=== PATIENT | female | born 1960 | race Caucasian/White ===

== ENCOUNTER 2016-11-10 11:07 | Day surgery (SDC) | payer MEDICAID ==
[~2016-11-10 11:07] MED LIST: ALBUTEROL2.5 MG/NEB IN; BUPROPION HCL150 M3 PO; CEFDINIR300 M1 PO; CELEBREX 200MG200 MG PO; CHANTIX1 M1; CHLORPROMAZINE25 MG; CIPROFLOXACIN500 MG PO; CLARITIN 10MG T10 MG PO; DIAZEPAM5 MG PO; FAMILY PHARMAC325 MG; FIORICET1 CAP PO; FLONASE 50 MCG16 GM; GABAPENTIN100 M1 PO; INCRUSE EL62.5 MCG/A IH; LORTAB 5/500 501 TAB PO; MILLIPRED5 MG PO; NAPROSYN 500MG500 MG PO; PHENERGAN 25MG.25 M1 PO; POTASS CHL20 MEQ/15 PO; PREDNISONE 10MG10 MG PO; PRENATAL PLUS1 TA1 PO; PYRIDIUM 200MG200 MG PO; RANITIDINE HCL150 MG PO; SAVELLA50 MG PO; SINGULAIR10 MG PO; VALIUM 10MG TAB10 MG PO; VENTOLIN H0.09 MG/Ac IH
--- NOTE | 2016-11-10 14:33 | Operative Note ---
Procedure: Date of procedure: 11/10/16 Time of procedure: 1200 Procedure performed: Implantation of Loop recorder Indication: Sudden drop syncope Technique: Technique: 1 percent lidocaine with epinephrine used to anesthetize the size. The LEFT anterior aspect of the chest along the LEFT sternal border. Using the preformed scalpel, an incision was made in the loop recorder was placed subcutaneously without difficulty. Following the deployment of the loop recorder interrogation of the device was performed to ensure appropriate voltage was being detected (0.6 mv). Once this was verified. Steri-Strips were placed over the incision and the patient was prepped to discharge home. Patient tolerated procedure well with minimal discomfort. Impression: Successful deployment of loop recorder Serial number: [id number] Plan: Routine post op care at 2000
--- NOTE | 2016-11-10 14:33 | Operative Note ---
Procedure: Date of procedure: 11/10/16 Time of procedure: 1200 Procedure performed: Implantation of Loop recorder Indication: Sudden drop syncope Technique: Technique: 1 percent lidocaine with epinephrine used to anesthetize the size. The LEFT anterior aspect of the chest along the LEFT sternal border. Using the preformed scalpel, an incision was made in the loop recorder was placed subcutaneously without difficulty. Following the deployment of the loop recorder interrogation of the device was performed to ensure appropriate voltage was being detected (0.6 mv). Once this was verified. Steri-Strips were placed over the incision and the patient was prepped to discharge home. Patient tolerated procedure well with minimal discomfort. Impression: Successful deployment of loop recorder Serial number: [id number] Plan: Routine post op care at 2000
== END 2016-11-10 13:00 | disposition home or self-care (01) ==
LOC: CATHLAB 11:07
PROVIDERS: Internal Medicine
PROC: 0JH632Z Insertion of Monitoring Device into Chest Subcutaneous Tissue and Fascia, Percutaneous Approach (ICD-10-PCS; principal; 2016-11-10 11:00)
DX: R55 Syncope and collapse (principal); I71.2 Thoracic aortic aneurysm, without rupture
CPT/HCPCS: C1764; G0463

== ENCOUNTER 2016-11-17 12:59 | Emergency (ER) | payer MEDICAID ==
[~2016-11-17] VITALS: Ht 172.7 cm; Wt 48.1 kg
[2016-11-17] MEDS ORDERED: LIPITOR40 MG PO (13:22)
[2016-11-17] MEDS ORDERED: ASPIRIN 81MG TA81 MG PO (13:23)
[2016-11-17] MEDS ORDERED: IMDUR 60MG. TAB60 MG PO (13:23)
[2016-11-17] MEDS ORDERED: TOPIRAMATE 25MG25 MG PO (13:23)
[2016-11-17] MEDS ORDERED: SAVELLA50 MG PO (13:24)
[2016-11-17] MEDS ORDERED: BISOPROLOL 5MG T5 MG PO (13:24)
[2016-11-17] MEDS ORDERED: NITROGLYCERIN0.4 MG SL (13:25)
[2016-11-17] MEDS ORDERED: BUTAL PO (13:26)
[2016-11-17] MEDS ORDERED: ACETAMIN PO (13:26)
--- NOTE | 2016-11-17 13:43 | Urgent Treatment Center Report ---
History of Present Issue Date/Time Seen by Provider 11/17/16 1315 Visit Reason Pt arrived:Walked Presenting Problem:PT STATES RASH TO ARMS ON AND OFF FOR FOUR MONTHS. STATES RASH WILL GO AWAY FOR A COUPLE OF DAYS BUT COMES BACK. STATES USING DIFFERENT CREAMS WITH NO RELIEF. STATES AREAS GET INFECTED AND ITCHES AND WILKINSON. DENIES RECENT CHANGES IN SOAPS, DETERGENTS, ETC. Location if Accident: Onset of symptoms date/time:/ or onset unknown for:MEDICAL HX UNKNOWN Have you (or family members/close friends) recently traveled outside the [place]? N If Yes, where/when: Have you had exposure to infectious disease within the past month? TB? Other? Specify: c/o persistant intermittent rash. Reoccurring for over 5 months now. Initially anterior neck/lower chin, then right elbow/FA and currently left AC. Starts as "red bumps" but then pt starts scratching and develops into scabs that w/ scratching, ooze clear liquid and burn. Denies scaling, flaking, dryness. Has already seen Dr. Correa, Dr. Quintero and Dr. Barksdale for rash. None of whick knew exact cause. Dr. Barksdale had discussed referral to dermatology but pt hasn 't heard anything in regards to an appt. No improvement w/ betamethasone, another prescription steroid cream, cortisone 10, mindy rest, oatmeal baths, calamine, baking soda, antihistamine daily, "and everything else over the counter you can think of". Skin scraping indicated not scabies. Sleeping w/ ice pack on "just to get a hint of relief so that I can sleep". Source patient Exam Limitations no limitations ALLERGIES Coded Allergies: Penicillins (Mild, 08/30/16) diphenhydramine (From BENADRYL) (ORAL BENADRYL ONLY 11/17/16) Home Medications Reported Medications Bupropion HCl (Bupropion HCl Sr) 150 MG PO BID #60 UMECLIDINIUM BROMIDE (Incruse Ellipta) 1 PUFF IH DAILY #30 Fluticasone Propionate (Flonase 50 Mcg Nasal [place]) 1 SPRAY NA BID #16 Loratadine (Claritin 10MG) 10 MG PO DAILY #30 Albuterol Sulfate (Ventolin Hfa) 1 PUFFS IH UD #18 MULTIVIT-MIN W/FE-FA ( Multivitamin Tablet) 1 TAB PO DAILY Diazepam (Valium 10MG) 10 MG PO BID Gabapentin (Gabapentin 100MG) 200 MG PO TID Atorvastatin Calcium (Atorvastatin) 10 MG PO DAILY ISOSORBIDE MONONITRATE (Isosorbide Mononitrate ER) 30 MG PO DAILY Topiramate (Topiramate 25MG Tablet) 25 MG PO DAILY ASPIRIN (Aspirin) 81 MG PO DAILY MILNACIPRAN HCL (Savella) 50 MG PO BID BISOPROLOL FUMARATE (Bisoprolol 5MG) 10 MG PO DAILY NITROGLYCERIN (Nitrostat) 0.4 MG SL [id number] PRN ANGINA BUTALBIT/ACETAMIN/CAFF/CODEINE (Fbaqpt-Mzco-Vohxwweyfcf-Codein) 1 EACH PO BID History Medical History General CAD? No Angina: Yes [place]: Yes Hypertension? No Hyperlipidemia? Yes CHF? No DVT? No PE? No COPD? Yes Asthma? No Anemia? Yes GERD? No Gastric ulcers? No GI Bleed? No Hernia? Yes Thyroid Problems? No Hypothyroidism? No CVA? Yes Seizures? No Diabetes? No Renal Insuffiency? No UTI? No Stones? No BPH? No GB Disease: No Nephritic Syndrome? No Asplenia? No Hepatitis? No Sickle Cell Disease? No Arthritis? No Migraines? No Cataracts? No Glaucoma? No MRSA? No HIV? No TB? No Anxiety? No Depression? No Cancer? 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 Respiratory denies shortness of breath Musculoskeletal denies joint pain Skin see HPI Psychiatric/Neurological denies numbness, denies tingling Physical Exam Vital Signs Vital Signs Date Time Temp Pulse Resp B/P Pulse O2 O2 Flow FiO2 Ox Delivery Rate 11/17 1345 98.2 71 18 111/72 95 11/17 1308 98.2 71 18 111/72 95 General Appearance no apparent distress, thin, dishelveld appearance Neck non-tender, supple Respiratory Status No: respiratory distress. Cardiovascular no peripheral edema Neurologic alert Mental status normal mood/affect Skin light red maculopapular rash left AC w/ obvious scratching. Scabbed linear lesions. All without any sign of secondary infection. No warmth, inflammation, drainage or pain at site. Medical Decision Making LABS/Meds/Orders Pt receiving controlled substance in ED? No Progress [facility] Progress Notes Date 11/17/16 Time 1330 Comment Spoke w/ Dr. Barksdale's office. No mention of dermatology in most recent visit's note. Nothing indicates a referral was made. Pt aware and upset about this. Discussed possible differentials, all of which pt is adament it is not. Discussed various treatment options to try, all of which pt reports she has already tried and has gotten no relief with. Departure Departure Time of Disposition 1339 Disposition DC Home or Self Care(routine) Clinical Impression Primary Impression: Rash and nonspecific skin eruption Condition STABLE Referrals RUT HURTADO I understand your schedule is complicated and you rather make an appointment around your schedule. I called their office. You can bee seen in [facility] in december but in [place] office possible next week w/ The physician's assistance. Call [phone] (Office of Dr. Rut Hurtado) today and schedule you a follow up appointment. Patient Instructions DI for Rash Additional Instructions Your rash is complicated. It hasn't responded to any previous treatment. You need to see a engineering geologist for further evaluation and management. Discharge Counseling Counseled pt/family regarding diagnosis, home care, follow up needs at 1412
--- NOTE | 2016-11-17 13:43 | Urgent Treatment Center Report ---
History of Present Issue Date/Time Seen by Provider 11/17/16 1315 Visit Reason Pt arrived:Walked Presenting Problem:PT STATES RASH TO ARMS ON AND OFF FOR FOUR MONTHS. STATES RASH WILL GO AWAY FOR A COUPLE OF DAYS BUT COMES BACK. STATES USING DIFFERENT CREAMS WITH NO RELIEF. STATES AREAS GET INFECTED AND ITCHES AND WILKINSON. DENIES RECENT CHANGES IN SOAPS, DETERGENTS, ETC. Location if Accident: Onset of symptoms date/time:/ or onset unknown for:MEDICAL HX UNKNOWN Have you (or family members/close friends) recently traveled outside the [place]? N If Yes, where/when: Have you had exposure to infectious disease within the past month? TB? Other? Specify: c/o persistant intermittent rash. Reoccurring for over 5 months now. Initially anterior neck/lower chin, then right elbow/FA and currently left AC. Starts as "red bumps" but then pt starts scratching and develops into scabs that w/ scratching, ooze clear liquid and burn. Denies scaling, flaking, dryness. Has already seen Dr. Correa, Dr. Quintero and Dr. Barksdale for rash. None of whick knew exact cause. Dr. Barksdale had discussed referral to dermatology but pt hasn 't heard anything in regards to an appt. No improvement w/ betamethasone, another prescription steroid cream, cortisone 10, mindy rest, oatmeal baths, calamine, baking soda, antihistamine daily, "and everything else over the counter you can think of". Skin scraping indicated not scabies. Sleeping w/ ice pack on "just to get a hint of relief so that I can sleep". Source patient Exam Limitations no limitations ALLERGIES Coded Allergies: Penicillins (Mild, 08/30/16) diphenhydramine (From BENADRYL) (ORAL BENADRYL ONLY 11/17/16) Home Medications Reported Medications Bupropion HCl (Bupropion HCl Sr) 150 MG PO BID #60 UMECLIDINIUM BROMIDE (Incruse Ellipta) 1 PUFF IH DAILY #30 Fluticasone Propionate (Flonase 50 Mcg Nasal [place]) 1 SPRAY NA BID #16 Loratadine (Claritin 10MG) 10 MG PO DAILY #30 Albuterol Sulfate (Ventolin Hfa) 1 PUFFS IH UD #18 MULTIVIT-MIN W/FE-FA ( Multivitamin Tablet) 1 TAB PO DAILY Diazepam (Valium 10MG) 10 MG PO BID Gabapentin (Gabapentin 100MG) 200 MG PO TID Atorvastatin Calcium (Atorvastatin) 10 MG PO DAILY ISOSORBIDE MONONITRATE (Isosorbide Mononitrate ER) 30 MG PO DAILY Topiramate (Topiramate 25MG Tablet) 25 MG PO DAILY ASPIRIN (Aspirin) 81 MG PO DAILY MILNACIPRAN HCL (Savella) 50 MG PO BID BISOPROLOL FUMARATE (Bisoprolol 5MG) 10 MG PO DAILY NITROGLYCERIN (Nitrostat) 0.4 MG SL [id number] PRN ANGINA BUTALBIT/ACETAMIN/CAFF/CODEINE (Gztnnb-Labb-Cuzjlcemlmo-Codein) 1 EACH PO BID History Medical History General CAD? No Angina: Yes [place]: Yes Hypertension? No Hyperlipidemia? Yes CHF? No DVT? No PE? No COPD? Yes Asthma? No Anemia? Yes GERD? No Gastric ulcers? No GI Bleed? No Hernia? Yes Thyroid Problems? No Hypothyroidism? No CVA? Yes Seizures? No Diabetes? No Renal Insuffiency? No UTI? No Stones? No BPH? No GB Disease: No Nephritic Syndrome? No Asplenia? No Hepatitis? No Sickle Cell Disease? No Arthritis? No Migraines? No Cataracts? No Glaucoma? No MRSA? No HIV? No TB? No Anxiety? No Depression? No Cancer? 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 Respiratory denies shortness of breath Musculoskeletal denies joint pain Skin see HPI Psychiatric/Neurological denies numbness, denies tingling Physical Exam Vital Signs Vital Signs Date Time Temp Pulse Resp B/P Pulse O2 O2 Flow FiO2 Ox Delivery Rate 11/17 1345 98.2 71 18 111/72 95 11/17 1308 98.2 71 18 111/72 95 General Appearance no apparent distress, thin, dishelveld appearance Neck non-tender, supple Respiratory Status No: respiratory distress. Cardiovascular no peripheral edema Neurologic alert Mental status normal mood/affect Skin light red maculopapular rash left AC w/ obvious scratching. Scabbed linear lesions. All without any sign of secondary infection. No warmth, inflammation, drainage or pain at site. Medical Decision Making LABS/Meds/Orders Pt receiving controlled substance in ED? No Progress [facility] Progress Notes Date 11/17/16 Time 1330 Comment Spoke w/ Dr. Barksdale's office. No mention of dermatology in most recent visit's note. Nothing indicates a referral was made. Pt aware and upset about this. Discussed possible differentials, all of which pt is adament it is not. Discussed various treatment options to try, all of which pt reports she has already tried and has gotten no relief with. Departure Departure Time of Disposition 1339 Disposition DC Home or Self Care(routine) Clinical Impression Primary Impression: Rash and nonspecific skin eruption Condition STABLE Referrals RUT HURTADO I understand your schedule is complicated and you rather make an appointment around your schedule. I called their office. You can bee seen in [facility] in december but in [place] office possible next week w/ The physician's assistance. Call [phone] (Office of Dr. Rut Hurtado) today and schedule you a follow up appointment. Patient Instructions DI for Rash Additional Instructions Your rash is complicated. It hasn't responded to any previous treatment. You need to see a annealing torch operator for further evaluation and management. Discharge Counseling Counseled pt/family regarding diagnosis, home care, follow up needs at 1412
[2016-11-17 13:45] VITALS: BP 111/72
== END 2016-11-17 13:46 | disposition home or self-care (01) ==
LOC: UTC 12:59
DX: R21 Rash and other nonspecific skin eruption (principal); Z79.899 Other long term (current) drug therapy; J44.9 Chronic obstructive pulmonary disease, unspecified; Z72.0 Tobacco use

== ENCOUNTER → 2016-11-24 | Outpatient (CLI) | payer MEDICAID ==
[~2016-11-24] MED LIST changes: +ACETAMIN PO; +ASPIRIN 81MG TA81 MG PO; +BISOPROLOL 5MG T5 MG PO; +BUTAL PO; +IMDUR 60MG. TAB60 MG PO; +LIPITOR40 MG PO; +NITROGLYCERIN0.4 MG SL; +TOPIRAMATE 25MG25 MG PO
--- NOTE | 2016-11-29 09:36 | RADIOLOGY REPORT PS360 ---
DIG MAMM- JERRY ADD VIEWS W/CAD, US BREAST-RT COMPLETE W/AXILLA, US BREAST-LT COMPLETE W/AXILLA COMPARISON: 1117, 02/12/2010 INDICATION: Follow-up abnormal mammogram ORDERING PHYSICIAN: Abdirashid Hunter MD PATIENT AGE: 56 years TECHNIQUE: Spot compression views performed along with bilateral breast ultrasound FINDINGS: Dense fibroglandular tissue decreasing the sensitivity of mammography. Right mammogram: Asymmetric density in the deep central aspect of the right breast and medial subareolar region of the right breast both appear to compress out.. A cluster of calcifications noted in the upper aspect of the right breast probably benign. An additional cluster calcifications in the retroareolar region superiorly. These are probably benign. 6 month follow-up recommended. Right breast ultrasound: 3 mm cyst at 1:00. 4 mm cyst at 3:00. No suspicious nodules evident. Left mammogram: Scattered retroareolar clusters of calcification are noted none of which are more suspicious than any other probably related to adenosis. 3 month follow-up recommended Left breast ultrasound: At the 12:00 region there is a cluster small cyst imbedded in fibroglandular tissue. IMPRESSION: No convincing evidence of malignancy. Probably benign findings. BI-RADS CATEGORY: 3_Probably Benign-Short Term F/U regarding calcifications RECOMMENDED FOLLOWUP: 6 month mammographic follow-up with magnification views of both breasts and left breast ultrasound. (A letter has been sent to the patient regarding results of the study.)
== END ==
LOC: RAD 12:41
DX: R92.8 Other abnormal and inconclusive findings on diagnostic imaging of breast (principal)
CPT/HCPCS: G0204

== ENCOUNTER 2016-11-30 07:50 | Day surgery (SDC) | payer MEDICAID ==
[2016-11-30 09:17] LABS: HEMOGLOBIN 16.1 g/dL (12.2-16.2); LYMPH # 1.3 K/mm3 (0.7-4.5); LYMPH % 29.5 % (10-50.0)
[2016-11-30 09:25] LABS: BUN 18 mg/dL (7-18)
[2016-11-30 09:34] LABS: GFR (ESTIMATED) 74 ML/MIN (59-)
--- NOTE | 2016-11-30 12:42 | RADIOLOGY REPORT PS360 ---
CARDIAC CATHETERIZATION DATE OF CATHETERIZATION:11/30/2016 10:59 AM PROCEDURES: 1. Left heart catheterization 2. Left ventriculogram 3. Selective coronary angiogram INDICATION FOR TEST: 1. Known coronary artery disease 2. Preoperative evaluation 3. Angina pectoris class IV Informed consent was obtained prior to the procedure. COMPLICATIONS: None ESTIMATED BLOOD LOSS: Less than 10 ml. TECHNIQUE: One percent lidocaine was used to anesthetize the right groin. The right femoral artery was accessed via the Seldinger technique. A 4-Jordanian sheath was placed in the right femoral artery. The JL-4 and JR-4 catheter was also used to perform left heart catheterization and left ventriculography. At the end of the procedure the patient was transferred to the post-op holding area in stable condition for arterial sheath removal. ANGIOGRAPHIC RESULTS: 1. The left main artery normal 2. The left anterior descending artery is proximally normal with mild mid vessel 30% nonflow limiting stenoses. Slow flow is present down the LAD consistent with endothelial dysfunction 3. The circumflex artery is nondominant and has mild vascular ectasia in the mid segment with no stenosis greater than 20% 4. The right coronary artery is dominant and has a stent in the proximal segment which is widely patent free of in-stent restenosis. The remaining vessel has mild 10% nonflow limiting stenoses 5. The GANDHI ventriculogram reveals normal 65% 6. The left ventricular end-diastolic pressure less than 10 mmHg IMPRESSION: 1. Non flow limiting coronary artery disease with a widely patent stent in the proximal dominant right coronary artery 2. Slow flow down all vessels consistent with endothelial dysfunction likely related to tobacco usage 3. Normal ejection fraction 4. Normal left ventricular and less so pressure PLAN: 1. Risk factor modification 2. LDL less than 55 3. Tobacco cessation and avoidance of tobacco products 4. Patient is a low and acceptable risk to proceed with elective herniorrhaphy
[2016-11-30 14:22] VITALS: BP 128/78
== END 2016-11-30 14:25 | disposition home or self-care (01) ==
LOC: CATHLAB 07:50
PROVIDERS: Internal Medicine
PROC: B2111ZZ Fluoroscopy of Multiple Coronary Arteries using Low Osmolar Contrast (ICD-10-PCS; 2016-11-30)
PROC: B2151ZZ Fluoroscopy of Left Heart using Low Osmolar Contrast (ICD-10-PCS; 2016-11-30)
PROC: 4A023N7 Measurement of Cardiac Sampling and Pressure, Left Heart, Percutaneous Approach (ICD-10-PCS; principal; 2016-11-30 09:45)
DX: I25.119 Atherosclerotic heart disease of native coronary artery with unspecified angina pectoris (principal); Z95.5 Presence of coronary angioplasty implant and graft; J44.9 Chronic obstructive pulmonary disease, unspecified; Z72.0 Tobacco use
CPT/HCPCS: C1725; C1769; J1644; Q9967

== ENCOUNTER 2016-12-30 09:44 | Emergency (ER) | payer MEDICAID ==
[~2016-12-30] VITALS: Ht 172.7 cm; Wt 46.7 kg
--- NOTE | 2016-12-30 09:54 | Emergency Room Report ---
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 EMS GAVE TWO SPRAYS OF NITRO WITH GOOD RESULTS INCLUDING DECREASE IN BP AND DECREASE PAIN Onset of symptoms date/time:/ or onset unknown for:MEDICAL HX UNKNOWN Treatment Prior to Arrival: WASH DRILLER HELPER Provided by: Sepsis Risk Assessment: Temp: 98.0 B/P: 148/95 MAP: 112 Pulse: 82 Resp: 18 Recent fever? Y Clinical Suspician of Infection? N Mental Status: 1 - Regular (Normal Baseline) Sepsis Risk:Low Sepsis Risk Have you (or family members/close friends) recently traveled outside the [place]? N If Yes, where/when: Have you had exposure to infectious disease within the past month? TB? Other? Specify: Comment The patient complains of chest pain, brought in by ambulance. She says the pain started an hour prior to arrival when walking back from the bathroom. Initially she had pain in tingling in her LEFT arm and her jaw and also developed a LEFT anterior chest pain. Slight shortness of breath. Slight nausea. No diaphoresis. She says she has had this in the past, usually relieved with nitroglycerin and Tylenol, but it did not go away with nitroglycerin at home today. She called 911 and was administered nitroglycerin in route. She says her chest pain is gone, but she still has some pain in her arm and jaw. She says the last time she had this was in August and at that time she had a cath and she thinks she had a stent replaced. She has had open heart surgery, valve repair, loop recorder, and stents. [employer] Justice is Dr. Barksdale. ALLERGIES Coded Allergies: Penicillins (Mild, 12/30/16) diphenhydramine (From BENADRYL) (ORAL BENADRYL ONLY 12/30/16) Home Medications Reported Medications Bupropion HCl (Bupropion HCl Sr) 150 MG PO BID #60 UMECLIDINIUM BROMIDE (Incruse Ellipta) 1 PUFF IH DAILY #30 Fluticasone Propionate (Flonase 50 Mcg Nasal [place]) 1 SPRAY NA BID #16 Loratadine (Claritin 10MG) 10 MG PO DAILY #30 Albuterol Sulfate (Ventolin Hfa) 1 PUFFS IH UD #18 MULTIVIT-MIN W/FE-FA ( Multivitamin Tablet) 1 TAB PO DAILY Diazepam (Valium 10MG) 10 MG PO BID Gabapentin (Gabapentin 100MG) 200 MG PO TID Atorvastatin Calcium (Atorvastatin) 10 MG PO DAILY ISOSORBIDE MONONITRATE (Isosorbide Mononitrate ER) 30 MG PO DAILY Topiramate (Topiramate 25MG Tablet) 25 MG PO DAILY ASPIRIN (Aspirin) 81 MG PO DAILY MILNACIPRAN HCL (Savella) 50 MG PO BID BISOPROLOL FUMARATE (Bisoprolol 5MG) 10 MG PO DAILY NITROGLYCERIN (Nitrostat) 0.4 MG SL [id number] PRN ANGINA BUTALBIT/ACETAMIN/CAFF/CODEINE (Zejzdb-Tuag-Xpjkabfhove-Codein) 1 EACH PO BID History Medical History General CAD? No Angina: Yes [place]: Yes Hypertension? Yes Hyperlipidemia? Yes CHF? No DVT? No PE? No COPD? Yes Asthma? No Anemia? Yes GERD? No Gastric ulcers? No GI Bleed? No Hernia? Yes Thyroid Problems? No Hypothyroidism? No CVA? Yes Seizures? No Diabetes? No Renal Insuffiency? No End Stage Renal Disease? No UTI? No Stones? No BPH? No GB Disease: No Nephritic Syndrome? No Asplenia? No Hepatitis? No Sickle Cell Disease? No Arthritis? No Migraines? No Cataracts? No Glaucoma? No MRSA? No HIV? No TB? No Anxiety? No Depression? No Cancer? 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 Patent stent. Review of Systems All Other Systems Reviewed and Negative Respiratory shortness of breath Cardiovascular chest pain Gastrointestinal denies abdominal pain, nausea, denies vomiting Musculoskeletal see HPI Psychiatric/Neurological tingling Physical Exam Vital Signs Vital Signs Date Time Temp Pulse Resp B/P Pulse O2 O2 Flow FiO2 Ox Delivery Rate 12/30 1413 98.0 69 20 105/64 98 2 12/30 1349 69 20 105/64 98 2 12/30 1151 75 16 91/61 97 2 12/30 1025 20 12/30 0947 98.0 82 18 148/95 98 General Appearance no apparent distress Eye Exam - bilateral eye normal exam, bilateral eye PERRL, bilateral eye EOMI Ear, Nose, Throat hearing grossly normal, normal ENT inspection Neck normal inspection, non-tender, supple, full range of motion Respiratory Status Yes: trachea midline, chest symmetrical, non tender chest. No: respiratory distress. Lung Sounds bilateral: normal breath sounds, lungs clear. Cardiovascular normal exam, regular rate/rhythm, no peripheral edema, no gallop, no JVD, no murmur, no rub, normal peripheral pulses Peripheral Pulses Pulses normal Yes Gastrointestinal normal bowel sounds, normal exam, non tender, soft, no organomegaly Extremities non-tender, normal range of motion, normal inspection Neurologic alert, normal exam, oriented x 3 Mental status normal mood/affect Skin intact, normal color, warm/dry Medical Decision Making LABS/Meds/Orders Pt receiving controlled substance in ED? Yes Chris was queried for this patient? No Reason not queried - emergent pt cond=no time Results/Orders Laboratory Tests 12/30/16 1325: Troponin I 0.02 12/30/16 0945: Sodium 144, Potassium 3.7, Chloride 105, Carbon Dioxide 29, BUN 19 H, Creatinine 0.8, Estimated Creat Clear 57, Estimated GFR (MDRD) 74, Glucose 107 H, Calcium 9.4, Total Bilirubin 0.2, AST 16, ALT 31, Alkaline Phosphatase 100, Creatine Kinase 36, CK-MB (CK-2) Rel Index 1.4, CK and CKMB Interp < 0.5, Troponin I < 0.02, Total Protein 8.0, Albumin 4.0, Globulin 4.0 H, Albumin/ Globulin Ratio 1.0 L, WBC 4.7 L, RBC 5.39, Hgb 17.8 H, Hct 56.5 H, MCV 104.9 H, RDW 13.1, Plt Count 135 L, MPV 8.7, Gran % 53.2, Gran # 2.5, Lymphocytes % 33.5, Monocytes % 7.4, Eosinophils % 5.2, Basophils % 0.7, Lymphocytes # 1.6, Monocytes # 0.4, Eosinophils # 0.2, Basophils # 0.0, PUBS MCHC 31.5 L, MCH 33.0 H Current Medication Orders Sig/Yelena Start time Last Medication Dose Route Stop Time Status Admin Ondansetron HCl 0 .STK-MED ONE 12/30 1023 DC .ROUTE Morphine Sulfate 0 .STK-MED ONE 12/30 1022 DC .ROUTE Morphine Sulfate 2 MG ONCE ONE 12/30 1015 DC 12/30 IV 12/30 1016 1025 Ondansetron HCl 4 MG ONCE ONE 12/30 1015 DC 12/30 IV 12/30 1016 1024 Sodium Chloride 10 ML PRN PRN 12/30 1000 DCD IV 12/31 0946 Orders Procedure Date/time Status TROPONIN I 12/30 1234 Complete ELECTROCARDIOGRAM REQUEST 12/30 945 Active IV SALINE LOCK 12/30 945 Active CBC WITH AUTO DIFF 12/30 945 Complete CARDIAC ENZYMES 12/30 945 Complete CHEM 12 PROFILE 12/30 945 Complete 12 LEAD EKG-LESTER (INITIAL) 12/30 UNK Active CM/EKG CM/EKG Comments EKG interpreted by aDvid Yao MD: Rhythm: sinus Rate: 77 [place]: normal Ectopy: none Conduction: normal ST Segment Changes: none T Wave Changes: none Q Waves: none No evidence of acute ischemia or injury Baseline artifact present, but I consider the EKG adequate for accurate interpretation. XRAY/CT/US XRAY/CT/US XRAY chest Comment X-ray interpreted by David Yao M.D.: Chronic obstructive pulmonary disease, surgical changes Progress - 12:58 PM: Patient refused second troponin. Discussed with William for Dr. Barksdale, who will see the patient in the emergency department. 1:23 PM: Patient seen by Luis. He says he has talked the patient into having a second troponin, which will now be drawn. If negative, discharge and he will will follow her up in the office on and schedule an outpatient echo. 2:00 PM: Second troponin normal. Discussed plan with patient. She says she feels good and is ready to go. Luis has informed her of follow-up plans. Departure Departure Disposition DC Home or Self Care(routine) Clinical Impression Primary Impression: Chest pain Qualifiers: Chest pain type: precordial pain Qualified Code: R07.2 - Precordial pain Condition STABLE Referrals Leon AGEE,Dejuan Galan (PCP/Family) Patient Instructions DI for Chest Pain Additional Instructions Additional instructions for CHEST PAIN: Follow-up in Dr. Barksdale's office on as scheduled. Return immediately if worsening chest pain, vomiting, shortness of breath, fever, coughing of blood. ED Critical Care Critical Care No at 1917
--- NOTE | 2016-12-30 09:54 | Emergency Room Report ---
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 PT ALSO TOOK ASPIRIN [employer]. EMS GAVE TWO SPRAYS OF NITRO WITH GOOD RESULTS INCLUDING DECREASE IN BP AND DECREASE PAIN Onset of symptoms date/time:/ or onset unknown for:MEDICAL HX UNKNOWN Treatment Prior to Arrival: [employer] Provided by: Sepsis Risk Assessment: Temp: 98.0 B/P: 148/95 MAP: 112 Pulse: 82 Resp: 18 Recent fever? Y Clinical Suspician of Infection? N Mental Status: 1 - Regular (Normal Baseline) Sepsis Risk:Low Sepsis Risk Have you (or family members/close friends) recently traveled outside the [place]? N If Yes, where/when: Have you had exposure to infectious disease within the past month? TB? Other? Specify: Comment The patient complains of chest pain, brought in by ambulance. She says the pain started an hour prior to arrival when walking back from the bathroom. Initially she had pain in tingling in her LEFT arm and her jaw and also developed a LEFT anterior chest pain. Slight shortness of breath. Slight nausea. No diaphoresis. She says she has had this in the past, usually relieved with nitroglycerin and Tylenol, but it did not go away with nitroglycerin at home today. She called 911 and was administered nitroglycerin in route. She says her chest pain is gone, but she still has some pain in her arm and jaw. She says the last time she had this was in August and at that time she had a cath and she thinks she had a stent replaced. She has had open heart surgery, valve repair, loop recorder, and stents. 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 ALLERGIES Coded Allergies: Penicillins (Mild, 12/30/16) diphenhydramine (From BENADRYL) (ORAL BENADRYL ONLY 12/30/16) Home Medications Reported Medications Bupropion HCl (Bupropion HCl Sr) 150 MG PO BID #60 UMECLIDINIUM BROMIDE (Incruse Ellipta) 1 PUFF IH DAILY #30 Fluticasone Propionate (Flonase 50 Mcg Nasal [place]) 1 SPRAY NA BID #16 Loratadine (Claritin 10MG) 10 MG PO DAILY #30 Albuterol Sulfate (Ventolin Hfa) 1 PUFFS IH UD #18 MULTIVIT-MIN W/FE-FA ( Multivitamin Tablet) 1 TAB PO DAILY Diazepam (Valium 10MG) 10 MG PO BID Gabapentin (Gabapentin 100MG) 200 MG PO TID Atorvastatin Calcium (Atorvastatin) 10 MG PO DAILY ISOSORBIDE MONONITRATE (Isosorbide Mononitrate ER) 30 MG PO DAILY Topiramate (Topiramate 25MG Tablet) 25 MG PO DAILY ASPIRIN (Aspirin) 81 MG PO DAILY MILNACIPRAN HCL (Savella) 50 MG PO BID BISOPROLOL FUMARATE (Bisoprolol 5MG) 10 MG PO DAILY NITROGLYCERIN (Nitrostat) 0.4 MG SL [id number] PRN ANGINA BUTALBIT/ACETAMIN/CAFF/CODEINE (Naqcqe-Orou-Vqvasjlasdz-Codein) 1 EACH PO BID History Medical History General CAD? No Angina: Yes [place]: Yes Hypertension? Yes Hyperlipidemia? Yes CHF? No DVT? No PE? No COPD? Yes Asthma? No Anemia? Yes GERD? No Gastric ulcers? No GI Bleed? No Hernia? Yes Thyroid Problems? No Hypothyroidism? No CVA? Yes Seizures? No Diabetes? No Renal Insuffiency? No End Stage Renal Disease? No UTI? No Stones? No BPH? No GB Disease: No Nephritic Syndrome? No Asplenia? No Hepatitis? No Sickle Cell Disease? No Arthritis? No Migraines? No Cataracts? No Glaucoma? No MRSA? No HIV? No TB? No Anxiety? No Depression? No Cancer? 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 Patent stent. Review of Systems All Other Systems Reviewed and Negative Respiratory shortness of breath Cardiovascular chest pain Gastrointestinal denies abdominal pain, nausea, denies vomiting Musculoskeletal see HPI Psychiatric/Neurological tingling Physical Exam Vital Signs Vital Signs Date Time Temp Pulse Resp B/P Pulse O2 O2 Flow FiO2 Ox Delivery Rate 12/30 1413 98.0 69 20 105/64 98 2 12/30 1349 69 20 105/64 98 2 12/30 1151 75 16 91/61 97 2 12/30 1025 20 12/30 0947 98.0 82 18 148/95 98 General Appearance no apparent distress Eye Exam - bilateral eye normal exam, bilateral eye PERRL, bilateral eye EOMI Ear, Nose, Throat hearing grossly normal, normal ENT inspection Neck normal inspection, non-tender, supple, full range of motion Respiratory Status Yes: trachea midline, chest symmetrical, non tender chest. No: respiratory distress. Lung Sounds bilateral: normal breath sounds, lungs clear. Cardiovascular normal exam, regular rate/rhythm, no peripheral edema, no gallop, no JVD, no murmur, no rub, normal peripheral pulses Peripheral Pulses Pulses normal Yes Gastrointestinal normal bowel sounds, normal exam, non tender, soft, no organomegaly Extremities non-tender, normal range of motion, normal inspection Neurologic alert, normal exam, oriented x 3 Mental status normal mood/affect Skin intact, normal color, warm/dry Medical Decision Making LABS/Meds/Orders Pt receiving controlled substance in ED? Yes Chris was queried for this patient? No Reason not queried - emergent pt cond=no time Results/Orders Laboratory Tests 12/30/16 1325: Troponin I 0.02 12/30/16 0945: Sodium 144, Potassium 3.7, Chloride 105, Carbon Dioxide 29, BUN 19 H, Creatinine 0.8, Estimated Creat Clear 57, Estimated GFR (MDRD) 74, Glucose 107 H, Calcium 9.4, Total Bilirubin 0.2, AST 16, ALT 31, Alkaline Phosphatase 100, Creatine Kinase 36, CK-MB (CK-2) Rel Index 1.4, CK and CKMB Interp < 0.5, Troponin I < 0.02, Total Protein 8.0, Albumin 4.0, Globulin 4.0 H, Albumin/ Globulin Ratio 1.0 L, WBC 4.7 L, RBC 5.39, Hgb 17.8 H, Hct 56.5 H, MCV 104.9 H, RDW 13.1, Plt Count 135 L, MPV 8.7, Gran % 53.2, Gran # 2.5, Lymphocytes % 33.5, Monocytes % 7.4, Eosinophils % 5.2, Basophils % 0.7, Lymphocytes # 1.6, Monocytes # 0.4, Eosinophils # 0.2, Basophils # 0.0, PUBS MCHC 31.5 L, MCH 33.0 H Current Medication Orders Sig/Yelena Start time Last Medication Dose Route Stop Time Status Admin Ondansetron HCl 0 .STK-MED ONE 12/30 1023 DC .ROUTE Morphine Sulfate 0 .STK-MED ONE 12/30 1022 DC .ROUTE Morphine Sulfate 2 MG ONCE ONE 12/30 1015 DC 12/30 IV 12/30 1016 1025 Ondansetron HCl 4 MG ONCE ONE 12/30 1015 DC 12/30 IV 12/30 1016 1024 Sodium Chloride 10 ML PRN PRN 12/30 1000 DCD IV 12/31 0946 Orders Procedure Date/time Status TROPONIN I 12/30 1234 Complete ELECTROCARDIOGRAM REQUEST 12/30 945 Active IV SALINE LOCK 12/30 945 Active CBC WITH AUTO DIFF 12/30 945 Complete CARDIAC ENZYMES 12/30 945 Complete CHEM 12 PROFILE 12/30 945 Complete 12 LEAD EKG-LESTER (INITIAL) 12/30 UNK Active CM/EKG CM/EKG Comments EKG interpreted by David Yao MD: Rhythm: sinus Rate: 77 [place]: normal Ectopy: none Conduction: normal ST Segment Changes: none T Wave Changes: none Q Waves: none No evidence of acute ischemia or injury Baseline artifact present, but I consider the EKG adequate for accurate interpretation. XRAY/CT/US XRAY/CT/US XRAY chest Comment X-ray interpreted by David Yao M.D.: Chronic obstructive pulmonary disease, surgical changes Progress - 12:58 PM: Patient refused second troponin. Discussed with William for Dr. Barksdale, who will see the patient in the emergency department. 1:23 PM: Patient seen by Luis. He says he has talked the patient into having a second troponin, which will now be drawn. If negative, discharge and he will will follow her up in the office on and schedule an outpatient echo. 2:00 PM: Second troponin normal. Discussed plan with patient. She says she feels good and is ready to go. Luis has informed her of follow-up plans. Departure Departure Disposition DC Home or Self Care(routine) Clinical Impression Primary Impression: Chest pain Qualifiers: Chest pain type: precordial pain Qualified Code: R07.2 - Precordial pain Condition STABLE Referrals Leon AGEE,Dejuan Galan (PCP/Family) Patient Instructions DI for Chest Pain Additional Instructions Additional instructions for CHEST PAIN: Follow-up in Dr. Barksdale's office on as scheduled. Return immediately if worsening chest pain, vomiting, shortness of breath, fever, coughing of blood. ED Critical Care Critical Care No at 1917
[2016-12-30 10:05] LABS: LYMPH # 1.6 K/mm3 (0.7-4.5); LYMPH % 33.5 % (10-50.0)
[2016-12-30 10:07] LABS: HEMOGLOBIN 17.8 g/dL (12.2-16.2)
[2016-12-30 10:26] LABS: BUN 19 mg/dL (7-18); GFR (ESTIMATED) 74 ML/MIN (59-)
--- NOTE | 2016-12-30 12:04 | RADIOLOGY REPORT PS360 ---
CHEST-PORTABLE COMPARISON: Portable upright chest 08/30/2016 HISTORY: Chest pain TECHNIQUE: Portable upright chest FINDINGS: Mild emphysematous changes seen with hyperexpansion lung mccoy. I see no infiltrate. Cardiac size is normal, again noted are sternal wire sutures. There is a moderate-sized hiatal hernia seen to the cardiac shadow. IMPRESSION: Mild COPD, no acute chest pathology noted
--- NOTE | 2016-12-30 13:46 | CONSULT NOTE ---
Standard Demographics Patient Demo Date of Consultation: 12/30/16 Referring Provider: David Yao MD Reason for Consultation: CHest pain PRIMARY DIAGNOSIS: chest pain Problem list Problem list: 1. CAD A. RCA BALDEMAR B. Cardiac cath, 11/2016, Widely patent RCA stent with evidence of endothelial dysfunction. Tobacco cessation and use of nitrates or ranexa recommended. 2. Tobacco use with chronic obstructive pulmonary disease and home oxygen use. 3. Hypertension 4. Hyperlipidemia 5. Chronic pain syndrome 6. Abdominal aortic aneurysm, 4.6 x 4.2 cm, 2017 7. History of iliac artery aneurysm, stable History of present illness: History of present illness: 56-year-old white female presented to emergency department with current chest pain with discomfort radiating to the jaw on the LEFT shoulder. Initial workup in the emergency room veal normal troponin. Electrocardiogram without acute change. Upon review of the patient's medication she has not been taking her isosorbide as previously directed. She does continue to smoke. Patient has known coronary disease and previous RIGHT coronary artery stent with recent cardiac catheterization last month showing widely patent stent and evidence of endothelial dysfunction exacerbated by continued tobacco use. Cardiology consulted for evaluation and recommendations. Past Medical History: General: Hypertension Yes CVA Yes Seizures No TB No COPD Yes Asthma No Diabetes No Angina Yes HI Yes Hyperlipidemia Yes Urinary Yes Cancer Yes Rheumatic H.D. No Ulcers Yes MRSA No GB Disease No Other NONMALIGNANT BREAST MASS Past Surgical HX: Previous Surgery?Y C SECTION X3 LEFT BREAST MASS UPPER GI LOWER GI CHEMO X 3 Hernia Repair POLYPS X 17 KIDNEY STONES PELVIC MESH OPEN HEART Allergies Coded Allergies: Penicillins (Mild, 12/30/16) diphenhydramine (From BENADRYL) (ORAL BENADRYL ONLY 12/30/16) Home medications: Reported Medications Bupropion HCl (Bupropion HCl Sr) 150 MG PO BID #60 UMECLIDINIUM BROMIDE (Incruse Ellipta) 1 PUFF IH DAILY #30 Fluticasone Propionate (Flonase 50 Mcg Nasal [place]) 1 SPRAY NA BID #16 Loratadine (Claritin 10MG) 10 MG PO DAILY #30 Albuterol Sulfate (Ventolin Hfa) 1 PUFFS IH UD #18 MULTIVIT-MIN W/FE-FA ( Multivitamin Tablet) 1 TAB PO DAILY Diazepam (Valium 10MG) 10 MG PO BID Gabapentin (Gabapentin 100MG) 200 MG PO TID Atorvastatin Calcium (Atorvastatin) 10 MG PO DAILY ISOSORBIDE MONONITRATE (Isosorbide Mononitrate ER) 30 MG PO DAILY Topiramate (Topiramate 25MG Tablet) 25 MG PO DAILY ASPIRIN (Aspirin) 81 MG PO DAILY MILNACIPRAN HCL (Savella) 50 MG PO BID BISOPROLOL FUMARATE (Bisoprolol 5MG) 10 MG PO DAILY NITROGLYCERIN (Nitrostat) 0.4 MG SL [id number] PRN ANGINA BUTALBIT/ACETAMIN/CAFF/CODEINE (Tfxyan-Msoj-Jdmiusqurah-Codein) 1 EACH PO BID Current Medications: Current Medications Ondansetron HCl 0 .STK-MED ONE .ROUTE (DC) Morphine Sulfate 0 .STK-MED ONE .ROUTE (DC) Morphine Sulfate 2 MG ONCE ONE IV (DC) Ondansetron HCl 4 MG ONCE ONE IV (DC) Sodium Chloride 10 ML PRN PRN IV Immunization HX Ped.Immunizations UTD Yes DT/Tetanus > 10 Years Flu 2016-FSN Pneumonia Never Had Family history Family HX Family Hx Insignificant No Diabetes Yes CAD Yes Hypertension Yes Hyperlipidemia Yes Cancer Yes TB No Social Hx: Smoking HX Tobacco Yes Type Cigarettes Packs/day < 1 PACK Alcohol Alcohol: No Hx of Drug Use Drug Use? No Patien't marital status is Review of systems: Constitutional No: no symptoms reported. Respiratory shortness of breath, SOB with excertion. Cardiovascular see HPI, chest pain Gastrointestinal/Abdominal No no symptoms reported Genitourinary No: no symptoms reported. Musculoskeletal back pain. Neurological No: no symptoms reported. Exam: Admission Vital Signs: 1ST Vital Signs Result Date Time Pulse Ox 98 12/30 946 B/P 148/95 12/30 946 Temp 98.0 12/30 946 Pulse 82 12/30 946 Resp 18 12/30 946 O2 Flow Rate 2 12/30 115 Last Vital Signs: Vital Signs Result Date Time Pulse Ox 97 12/301 B/P 91/61 12/30 1150 O2 Flow Rate 2 12/30 115 Pulse 75 12/30 1151 Resp 16 12/30 1150 Temp 98.0 12/30 946 Exam General appearance: alert, awake, no acute distress Cardiovascular: regular rate & rhythm Respiratory: diminished breath sounds ABD: soft, no tenderness Extremities: moves all, no peripheral edema Neuro: alert, intact, oriented Laboratory data: Laboratory Tests 12/30/16 0945: Sodium 144, Potassium 3.7, Chloride 105, Carbon Dioxide 29, BUN 19 H, Creatinine 0.8, Estimated Creat Clear 57, Estimated GFR (MDRD) 74, Glucose 107 H, Calcium 9.4, Total Bilirubin 0.2, AST 16, ALT 31, Alkaline Phosphatase 100, Creatine Kinase 36, CK-MB (CK-2) Rel Index 1.4, CK and CKMB Interp < 0.5, Troponin I < 0.02, Total Protein 8.0, Albumin 4.0, Globulin 4.0 H, Albumin/ Globulin Ratio 1.0 L, WBC 4.7 L, RBC 5.39, Hgb 17.8 H, Hct 56.5 H, MCV 104.9 H, RDW 13.1, Plt Count 135 L, MPV 8.7, Gran % 53.2, Gran # 2.5, Lymphocytes % 33.5, Monocytes % 7.4, Eosinophils % 5.2, Basophils % 0.7, Lymphocytes # 1.6, Monocytes # 0.4, Eosinophils # 0.2, Basophils # 0.0, PUBS MCHC 31.5 L, MCH 33.0 H Plan: Assessment: 1. Chest pain, likely due to endothelial dysfunction with medication noncompliance. Initial troponin normal with no acute changes on electrocardiogram. Recommend repeating troponin and if normal patient could be discharged home. Urged compliance with isosorbide mononitrate 30 mg daily. She hasn't appointment with Dr. JENSEN next week. Will obtain an echocardiogram to evaluate her LV size and function in the interim. 2. Continued tobacco use 3. Thrombocytosis, likely secondary to tobacco use 4. History of abdominal aortic aneurysm, stable by CT scan earlier this year. Recommendations: See above. at [id number]
[2016-12-30 14:13] VITALS: BP 105/64
--- OUTSIDE RECORDS SUMMARY | 2017-01-06 02:42 | External Medical Summary Rpt | CCD ---
Author Author , MYRIAM Organization [facility] Address Unknown Phone Care Team Providers Care Ground Support Agent Name Role Phone TERESO PHYLICIA, TERESO PHYLICIA Unavailable Unavailable MAYO GUTIERREZ, MAYO Unavailable Unavailable MD DAVE ROBLES AHMED, Unavailable Unavailable TE RAMOS JR, JR Unavailable Unavailable [facility], Unavailable Unavailable [facility] ARNOLD, ARNOLD Unavailable Unavailable ARNOLD, ARNOLD Unavailable Unavailable ARNOLD OLY, ARNOLD Unavailable Unavailable OLY ARNOLD OLY, ARNOLD Unavailable Unavailable OLY ARTHRITIS AND Unavailable Unavailable [facility]STE[facility]OROS[facility] C, [facility]STEOPOROSIS C AYOOB AND, AYOOB AND Unavailable Unavailable [facility] Un[facility]available [facility], [facility] Unavailable Unavailable LABORATORIES, [facility] Unavailable Unavailable LABORATORIES, [facility] Unavailable Unavailable CENTER, [facility], PLAZA Unavailable Unavailable KELI ANT, KELI ANT Unavailable Unavailable [facility] Unavailable Unavailable SERVICE, [facility] Unavailable Unavailable SERVICE, [facility] EDISON DEMETRIO, EDISON DEMETRIO Unavailable Unavailable EDISON DEMETRIO, EDISON DEMETRIO Unavailable Unavailable SMITH LIZZY, Unavailable Unavailable SMITH LIZZY [facility] Unavailable Unavailable ADULT & PED, [facility], Unavailable Unavailable [facility] RICHEY PEDRO, RICHEY PEDRO Unavailable Unavailable JOVANNY BELINDA, Unavailable Unavailable JOVANNY BELINDA BUCK, BUCK Unavailable Unavailable JAZMINE C JOVANNY, Unavailable Unavailable JAZMINE C JOVANNY [facility] Unavailable [place]available [place], [facility] [place] [facility]available Unavailable [place], [facility] Unavailable Unavailable [facility] Unavailable Unavailable JONEL RAFAEL, Unavailable Unavailable JONEL RAFAEL [facility], Unavailable Unavailable [facility] EM IV OLY, EM Unavailable Unavailable IV OLY FRYMAN, FRYMAN Unavailable Unavailable SHIREEN, SHIREEN Unavailable Unavailable SHIREEN MANJIT, SHIREEN Unavailable Unavailable MANJIT [facility] Unavailable Unavailable HOSPITA, [facility] ALEX WAY, ALEX WAY Unavailable Unavailable RECIO LIZZETH, RECIO LIZZETH Unavailable Unavailable HABASH, HABASH Unavailable Unavailable HABASH, HABASH Unavailable Unavailable HARPEL, HARPEL Unavailable Unavailable SIMEON ISHMAEL, SIMEON Unavailable Unavailable ISHMAEL [facility] Unavailable Unavailable CENTER, [facility] Unavailable Unavailable CENTER, [facility] Unavailable Unavailable INC, [facility] Unavailable Unavailable HOSPITAL P, [facility], Unavailable Unavailable [facility] Unavailable Unavailable EQUIPMENT, [facility] Unavailable GROUP PS, [facility] Unavailable Unavailable [facility]ING [facility], [facility] Unavailable Unavailable MEDICAL G, [facility] MEDICAL G [facility] NURSE Unavailable Unavailable PRACTITIONER GR, [facility] NURSE PRACTITIONER GR EMI POSEY, Unavailable Unavailable MARIE MAYORGA Unavailable Unavailable [facility], [facility] Unavailable Unavailable [facility], [facility] CRISTINA OLY, CRISTINA Unavailable Unavailable OLY JEANNETTE SORENSEN MD Un[facility] JOINER CHAVEZ, JOINER CHAVEZ Unavailable Unavailable [facility] Unavailable Unavailable SERVICES, [facility] FERMÍN ALTHEA, Unavailable Unavailable FERMÍN ALTHEA FERMÍN ALTHEA, Unavailable Unavailable FERMÍN ALTHEA [facility], Unavailable Unavailable [facility] Unavailable Unavailable [facility], [facility] DEANDRE ALEMAN Unavailable Unavailable SHARMAINE CONNORS, Unavailable Unavailable SHARMAINE CARRERA MD Unavailable Unavailable [facility] SRPEDRO Hardy MD [facility], Unavailable Unavailable PLL[facility], [facility] Unavailable Unavailable LAB, [facility] Unavailable Unavailable LAB, [facility] PETTEY JAM, PETTEY Unavailable Unavailable JAM [facility], Unavailable Unavailable [facility], Unavailable Unavailable INC., [facility] RENUSCH, RENUSCH Unavailable Unavailable LEON EMERSON, LEON Unavailable Unavailable EMERSON SCALF OLY, SCALF OLY Unavailable Unavailable [facility], Unavailable Unavailable [facility] SCHULSTAD, LISA, Unavailable Unavailable SCHULSTAD, LISA RICHARD, RICHARD Unavailable Unavailable AWAD AN, AWAD Unavailable Unavailable AN VANESSA MEDHAT, VANESSA MEDHAT Unavailable Unavailable ZEPEDA SHA, ZEPEDA SHA Unavailable Unavailable SOKAN BAB, SOKAN BAB Unavailable Unavailable [facility] Unavailable Unavailable EQUIPME, [facility] Unavailable Unavailable EQUIPME, [facility] MARINO ÁLVAREZ, MARINO Unavailable Unavailable HAZEL PEREZ, Unavailable Unavailable HAZEL PICHARDO VASJESSIE ALONDRA, Unavailable Unavailable VASCELLO ALONDRA [facility] Unavailable Unavailable [id number], [id number] NAEL POSEY, NAEL Unavailable Unavailable [facility] Unavailable Unavailable DEPT [facility] Unavailable Unavailable DEPT [facility] MONTERROSO JOSS, MONTERROSO Unavailable Unavailable JOSS MONTERROSO JOSS, MONTERROSO Unavailable Unavailable JOSS WILP, WILP Unavailable Unavailable [facility], Unavailable [facility], Unavailable Unavailable [facility] Purpose Continuity of Care Document - 07-26-2008 through 2016 Problems Code Diagnosis DOS Provider Status [id number] ASHD TAT[place]K 11-30-2016 [facility] W/UNS INC ANGINA PECTORIS J449 CHRONIC 11-30-2016 [facility]STRUCTIVE [facility] PULMONARY INC DISEASE UNS Z720 TOBACCO USE 11-30-2016 [facility] INC Z955 PRESENCE OF 11-30-2016 [facility] CORONARY [facility] ANGIOPLASTY INC IMPLANT & GRAFT R928 OTH ABNORM 11-24-2016 [facility] & [facility] INCONCLUSIV INC E FIND ON DX IMAG BREAST D45814 ARCUS 11-23-2016 [facility] SENILIS BILATERAL H2513 AGE-RELATED 11-23-2016 [facility] NUCLEAR CATARACT BILATERAL N24722 REGULAR 11-23-2016 [facility] ASTIGMATISM BILATERAL L570 ACTINIC 11-23-2016 [facility] KERATOSIS D259 LEIOMYOMA 11-17-2016 [facility] UNSPECIFIED GROUP N950 POSTMENOPAU 11-17-2016 [facility] DIANA PHYSICIANS BLEEDING GROUP R21 RASH AND 11-17-2016 [facility] OTHER [facility] NONSPECIFIC INC SKIN ERUPTION B38578 OTHER LONG 11-17-2016 [facility] TERM [facility] CURRENT INC DRUG THERAPY [id number] FX UNS 11-15-2016 [facility] CARPAL BONE HOME UNS WRIST MEDICAL INITIAL ENC EQUIPME CLOS FX K4090 UNILAT 11-11-2016 [facility] INGUINAL PHYSICIANS CEDRICK W/O GROUP OBST/GANGRE N NOT RECUR I712 THORACIC 11-10-2016 [facility] AORTIC [facility] ANEURYSM INC WITHOUT RUPTURE R55 SYNCOPE AND 11-10-2016 [facility] COLLAPSE PHYSICIANS GROUP I716 THORACOABDO 11-09-2016 [place] ERIN [facility]ICAL AORTIC IMAGING ASS ANEURYSM WITHOUT RUPTURE I728 ANEURYSM OF 11-09-2016 [place] OTHER MEDICAL SPECIFIED IMAGING ASS ARTERIES J432 CENTRILOBUL 11-09-2016 [place] AR MEDICAL EMPHYSEMA IMAGING ASS K449 DIAPHRAGMAT 11-09-2016 [place] IC HERNIA MEDICAL W/O IMAGING ASS OBSTRUCTION OR GANGRENE N2889 OTHER 11-09-2016 [place] SPECIFIED MEDICAL DISORDERS IMAGING ASS OF KIDNEY AND URETER N289 DISORDER OF 11-09-2016 [place] KIDNEY AND MEDICAL URETER IMAGING ASS UNSPECIFIED R921 MAMMO 11-04-2016 [place] CALCIFICATI MEDICAL ON FOUND ON IMAGING ASS DX IMAGING BREAST Z1231 ENCOUNTER 11-04-2016 [place] SCREENING MEDICAL MAMMO MALIG IMAGING ASS NEOPLASM BREAST I10 ESSENTIAL 10-27-2016 [facility] PRIMARY PHYSICIANS HYPERTENSIO GROUP N D63837 ENCOUNTER 10-27-2016 [facility] CUSTODIAL AIDE EXAM PHYSICIANS GENERAL RTN GROUP W/ABNORMAL FIND F07493 ENCOUNTER 10-27-2016 [facility] CUSTODIAL AIDE EXAM REFERNCE GENERAL RTN LABORATORIE W/O S ABNORMAL FIND Z1212 ENCOUNTER 10-27-2016 [facility] SCREENING PHYSICIANS MALIGNANT GROUP NEOPLASM RECTUM E785 HYPERLIPIDE 10-20-2016 [facility] JAIME PHYSICIANS UNSPECIFIED GROUP I119 HYPERTENSIV 10-20-2016 [facility] E HEART PHYSICIANS DISEASE GROUP WITHOUT HEART FAILURE I208 OTHER FORMS 10-20-2016 [facility] OF ANGINA PHYSICIANS PECTORIS GROUP I2510 ASHD TATITLEK 10-20-2016 [facility] CORONARY PHYSICIANS ARTERY W/O GROUP ANGINA PECTORIS Z8679 PERSONAL 10-20-2016 [facility] HISTORY OTH PHYSICIANS DISEASES GROUP CIRCULATORY SYSTEM I214 NON-ST 09-01-2016 [facility] ELEVATION PHYSICIANS MYOCARDIAL GROUP INFARCTION A34983 ASHD TATITLEK 09-01-2016 [facility] COR ART PHYSICIANS W/UNSTABLE GROUP ANGINA PECTORIS J441 CHRONIC 08-31-2016 [facility] OBSTRUCTIVE PHYSICIANS PULMONARY GROUP DZ W/EXACERBAT ION I252 OLD 08-30-2016 [facility] P R0602 SHORTNESS 08-30-2016 [facility] BREATH PHYSICIANS, [facility] R61 GENERALIZED 08-30-2016 [facility]PERH[facility] P IS R6884 JAW PAIN 08-30-2016 [facility] J020 STREPTOCOCC 08-23-2016 [facility] J0190 ACUTE 06-09-2016 [facility] SINUSITIS UNSPECIFIED J209 ACUTE 06-09-2016 [facility] BRONCHITIS UNSPECIFIED G4734 IDIOPATH 04-04-2016 [facility] REL [facility] NONOBST INC ALVEOL HYPOVENTILA TN R634 ABNORMAL 04-04-2016 [facility] WEIGHT LOSS [facility] INC R911 SOLITARY 04-04-2016 [facility] PULMONARY [facility] NODULE INC R918 OTHER 04-04-2016 [place] NONSPECIFIC MEDICAL ABNORMAL IMAGING ASS FINDING OF LUNG FIELD G4730 SLEEP APNEA 02-12-2016 [facility] [place]SE PRACTITIONE UNSPECIFIED R GR J439 EMPHYSEMA 02-12-2016 [facility]URSE UNSPECIFIED PRACTITIONE R GR Z23 ENCOUNTER 02-03-2016 [facility] IMMUNIZATIO [facility] DEPT N SINDHU J069 ACUTE UPPER 12-03-2015 [facility] OLY RESPIRATORY INFECTION UNSPECIFIED 35702 OBSTRUCTIVE 12-24-2014 [facility] APNEA MEDICAL EQUIPME 496 CHRONIC 12-24-2014 [facility] OBSTRUCTION [facility] NEC 49402 UNSPECIFIED 12-16-2014 [facility] CLOSED HOME FRACTURE OF MEDICAL CARPAL EQUIPME BONE 4412 THORACIC 08-17-2014 [facility] ANEURYSM WITHOUT MENTION OF RUPTURE 07392 SHORTNESS 08-17-2014 [facility] MEDICAL G 99744 OTHER 08-17-2014 [facility] JOSS [place] [address] CHEST PAIN 08-17-2014 [facility] [place] UNSPECIFIED RADIOLOGY 4419 AORTIC 08-05-2014 [facility] DEMETRIO ANEUR UNSPEC SITE WITHOUT MENTION RUPTURE 5119 UNSPECIFIED 08-05-2014 [facility] [place] PLEURAL [facility] EFFUSION 76108 PAINFUL 08-05-2014 [facility] DEMETRI[facility] RESPIRATION 4019 UNSPECIFIED 08-01-2014 [facility] ESSENTIAL HEALTH HYPERTENSIO MEDICAL G N 33820 DISSECTING 08-01-2014 [facility] AORTIC HEALTH ANEURYSM MEDICAL G THORACIC 74969 DISSECTING 08-01-2014 [facility] ANEURYSM THORACOABDO ERIN 7140 RHEUMATOID 08-01-2014 [facility] ARTHRITIS HEALTH MEDICAL G 04770 DISSECTING 07-28-2014 [facility] PSC UNSPECIFIED SITE 5180 PULMONARY 07-28-2014 [facility] COLLAPSE RADIOLOGY V5882 ENCOUNTER 07-28-2014 [facility] [place] FITTING&ADJ RADIOLOGY NON-VASCULA R CATHETER NEC 4422 ANEURYSM OF 07-27-2014 [facility] ILIAC SERV ART[facility]OUND[facility] 52009 ANEURYSM OF 07-27-2014 [facility] SPLENIC SERV [facility]OUND[facility] 4928 OTHER 07-27-2014 [facility] EMPHYSEMA SERV [facility]OUNDATION 5533 DIAPHRAGMAT 07-27-2014 [facility] C[facility]RICK W/O SERV MENTION FOUNDATION OBSTRUCTION /GANGREN 84971 SOLITARY 07-27-2014 [facility] PULMONARY SERV NODULE FOUNDATION 54961 OTHER 04-21-2014 [facility] SELECTIVE ALTHEA IMMUNOGLOBU GILBERTO DEFICIENCIE S 2859 UNSPECIFIED 04-21-2014 [facility] ANEMIA [facility] INC 4739 UNSPECIFIED 04-21-2014 [facility] SINUSITIS [facility] INC 4770 ALLERGIC 04-21-2014 [facility] RHINITIS ALTHEA DUE TO POLLEN 4778 ALLERGIC 04-21-2014 [facility] RHINITIS ALTHEA DUE TO OTHER ALLERGEN 34746 OBSTRUCTIVE 04-21-2014 [facility] CHRONIC ALTHEA BRONCHITIS WITH EXACERBATIO N 4919 UNSPECIFIED 04-21-2014 [facility] CHRONIC [facility] BRONCHITIS INC 33128 CHRONIC 04-21-2014 [facility]STRUCTIVE [facility] ASTHMA INC UNSPECIFIED 68841 OTHER 04-21-2014 [facility] MALAISE AND [facility] FATIGUE INC V727 DIAGNOSTIC 04-21-2014 [facility] SKIN AND ALTHEA SENSITIZATI ON TESTS 4660 ACUTE 03-11-2014 [facility] OLY BRONCHITIS 4659 ACUTE URIS 02-13-2014 [facility] OLY OF UNSPECIFIED SITE 3384 CHRONIC 12-20-2013 [facility] OLY PAIN SYNDROME 462 ACUTE 12-20-2013 [facility] OLY PHARYNGITIS 4779 ALLERGIC 10-24-2013 [facility] RHINITIS ALTHEA CAUSE UNSPECIFIED 80994 CHRONIC 10-24-2013 [facility] OBSTRUCTIVE ALTHEA ASTHMA W/STATUS ASTHMATICUS 49795 ESOPHAGEAL 10-24-2013 [facility] REFLUX ALTHEA 9390 FOREIGN 06-10-2013 [facility] [place] BLADDER AND ADULT & PED URETHRA 5921 CALCULUS OF 05-21-2013 [facility] RICHEY URETER CONSULTING SRV V7281 PRE-OPERATI 05-21-2013 [facility] RICHEY VE CARDIOVASCU CONSULTING LAR SRV EXAMINATION 591 HYDRONEPHRO 05-16-2013 [facility] [place] ADULT & PED 7880 RENAL COLIC 05-05-2013 [facility] 2669 UNSPECIFIED 04-22-2013 [facility] VITAMIN B [facility] DEFICIENCY INC 2689 UNSPECIFIED 04-22-2013 [facility] VITAMIN D [facility] DEFICIENCY INC 96312 OBSTRUCTIVE 04-22-2013 [facility] CHRONIC [facility] BRONCHITIS INC WITHOUT EXACERBAT 4829 UNSPECIFIED 04-18-2013 F[facility] BACTERIAL ALTHEA PNEUMONIA 4619 ACUTE 02-28-2013 [facility] SINUSITIS, UNSPECIFIED 34013 VARIANTS 12-01-2012 [facility] MIGRAINE NEC INTRACT MIGRAINE W/[place] [address] PAIN IN 06-06-2012 ARTHRITIS JOINT, AND MULTIPLE OSTEOPOROSI SITES S C 7242 LUMBAGO 06-06-2012 ARTHRITIS AND OSTEOPOROSI S C 7291 UNSPECIFIED 06-06-2012 ARTHRITIS MYALGIA AND AND OSTEOPOROSI MYOSITIS S C 87931 UNSPECIFIED 06-01-2012 [facility] OSTEOPOROSI S V5876 AFTERCARE 06-01-2012 [facility] NEC 5930 NEPHROPTOSI 05-29-2012 [facility] ANESTHESIA GROUP PS V7283 OTHER 05-28-2012 [facility] SPECIFIED COMMUNITY PRE-OPERATI HOSPITA VE EXAMINATION 2112 BENIGN 05-24-2012 [facility] NEOPLASM OF [facility] DUODENUM INC JEJUNUM AND ILEUM 87011 ACUT GASTR 05-24-2012 PATHOLOGY & ULCER W/O CYTOLOGY MENTION LAB HEMORR PERF/OBST 49749 UNS 05-24-2012 [facility] GASTRITIS&G [facility] ASTRODUODIT INC IS W/O MENTION HEMORR 14820 DYSPHAGIA 05-24-2012 [facility] UNSPECIFIED [facility] INC 11589 UNSPECIFIED 05-16-2012 JEANNETTE SORENSEN MD ARTHROPATHY PSC OTHER SPECIFIED SITES 4780 HYPERTROPHY 05-14-2012 [facility] OF NASAL ALTHEA TURBINATES 34370 MIGRAINE 04-25-2012 [facility] AURA NEUROLOGY INTRACT W/O CENTER B[facility] STATUS MIGRAINOSUS 01761 CHRONIC 04-25-2012 [facility] MIGRAINE NEUROLOGY W/O CENTER BRI[facility] W/INTRACTAB LE W/O SM 7231 CERVICALGIA 04-25-2012 [facility] 486 PNEUMONIA, 01-11-2012 [facility] ORGANISM [facility] UNSPECIFIED INC 67669 CHRONIC 12-27-2011 JEANNETTE Tang FATIGUE FRANCHESCA AGEE SYNDROME PSC 7830 ANOREXIA 12-27-2011 JEANNETTE SORENSEN MD PSC V0481 NEED 12-21-2011 [facility] [place] PROPHYLACTI [facility] VACCINATION &INOCULATIO N FLU 5920 CALCULUS OF 12-14-2011 [facility] KIDNEY [facility] INC 96363 HEMATURIA 12-14-2011 [place] UNSPECIFIED [facility]ICAL IMAGING ASS 11821 COR 11-29-2011 [facility] ATHEROSLERO UNSPEC TYPE VESSEL TATITLEK/LYNN T 66736 ABDOMINAL 11-17-2011 [facility] [place] PAIN, RADIOLOGY UNSPECIFIED SITE 5929 UNSPECIFIED 11-02-2011 [facility] URINARY CALCULUS 88958 OTHER ACUTE 10-10-2011 [facility] 5990 URINARY 10-10-2011 [facility] TRA[facility] INFECTION SERVICES SITE NOT SPECIFIED 75971 NAUSEA WITH 10-10-2011 [facility] VOMITING [facility]ANCE SERVICE 91834 ABDOMINAL 10-10-2011 [facility] PAIN, EMERGENCY EPIGASTRIC SERVICES 8408 SPRAIN&STRA 04-11-2011 [facility] IN OTH SPEC [facility] P SHOULDER&UP PER ARM 8409 SPRAIN&STRA 04-11-2011 [facility] IN UNSPEC EMERGENCY SITE SERVICES SHOULDER&UP PER ARM 80245 GENERALIZED 04-05-2011 JEANNETTE Tang PAIN FRANCHESCA AGEE PSC 89793 CLOSED 01-12-2011 [facility] FRACTURE OF MEM HOSP LOWER END INC OF RADIUS WITH ULNA V5489 OTHER 01-12-2011 [place] [facility] AFTERCARE IMAGING ASS 71549 CLOSED 12-22-2010 [facility] COLLES [facility] FRACTURE INC 76275 CONTUSION 11-19-2010 [facility] OF KNEE [facility] INC 9597 INJURY 11-19-2010 [place] OTHER&UNSPE MEDICAL CIFIED KNEE IMAGING ASS LEG ANKLE&FOOT 50709 PAIN IN 11-12-2010 [facility] JOINT, SHOULDER REGION 920 CONTUSION 11-12-2010 [place] OF FACE MEDICAL SCALP AND IMAGING ASS NECK EXCEPT EYE 9248 CONTUSION 11-12-2010 [facility] EMERGENCY SITES NEC SERVICES 2809 UNSPECIFIED 04-05-2010 [facility] IRON [facility] DEFICIENCY INC ANEMIA 1749 MALIGNANT 03-15-2010 [facility] NEOPLASM OF [facility] BREAST INC UNSPECIFIED SITE 7804 DIZZINESS 02-23-2010 JAZMINE C AND JOVANNY GIDDINESS 7802 SYNCOPE AND 02-17-2010 [facility] BRIANNA V7611 SCREENING 02-12-2010 [facility] MAMMOGRAM [facility] FOR INC HIGH-RISK PATIENT V7612 OTHER 02-12-2010 [place] SCREENING MEDICAL MAMMOGRAM IMAGING ASS 95820 ANEMIA IN 02-01-2010 [facility] CHRONIC [facility] DISEASE 2113 BENIGN 01-27-2010 PATHOLOGY & NEOPLASM OF CYTOLOGY COLON LAB 2114 BENIGN 01-27-2010 PATHOLOGY & NEOPLASM OF CYTOLOGY RECTUM AND LAB ANAL CANAL V7651 SPECIAL 01-27-2010 [facility] SCREENING SERV FOR FOUNDATIO MALIGNANT NEOPLASMS COLON 44352 ATROPHIC 01-06-2010 PATHOLOGY & GASTRITIS CYTOLOGY WITHOUT LAB MENTION OF HEMORRHAGE 37350 OTHER SPEC 01-06-2010 [facility] GASTRITIS SERV WITHOUT FOUNDATIO MENTION HEMORRHAGE 5564 PSEUDOPOLYP 01-06-2010 PATHOLOGY & OSIS OF CYTOLOGY COLON LAB 2827 OTHER 12-30-2009 [facility] HEMOGLOBINO [facility] PATHIES INC 2768 HYPOPOTASSE 12-21-2009 [facility] JAIME [facility] INC 28743 ING CEDRICK 12-19-2008 SCHULSTAD, W/O MENTION LISA OBST/GANGRE N UNILAT/UNSP EC 7840 HEADACHE 12-05-2008 SHARMAINE CARRERA Allergies, Adverse Reactions, Alerts Type Drug Allergy Adverse Reaction to Substance Substance Reaction Severity PCN (penicillin) DIFF BREATHING/HIVES Unknown Codeine HEADACHE Unknown Clinical Alert Notifications Alert Asthma: 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 Medications Na ND Rx Da Fi Fi Am Da Di Ph RX Ph St me C No te ll ll ou ys ag ar # ys at rm s nt no ma ic us Or Da si cy ia de te s n re d WY 54 09 10 28 7 00 EA Ac AM 76 -0 -[address] ti OS 60 8- 6- 99 00 SI ve ON 76 20 20 50 DE E 30 17 17 00 1% 4 53 PH -1 AR % MA OI CY NT ME OF NT CY NT HI AN A IN C CL 00 08 09 30 30 00 EA Ac 53 -3 -[address] ti SI 64 1- 9- 00 00 SI ve C 06 20 20 49 DE WY 30 17 17 14 EN 1 34 PH AT AR AL MA CY TA BL OF ET CY NT HI AN A IN C AT 60 08 09 30 30 00 EA Ac OR 50 -3 -[address] ti VA 52 1- 9- [address] 57 20 20 49 DE AT 80 17 17 14 IN 9 30 PH AR 10 MA CY MG OF TA CY BL NT ET HI AN A IN C TO 62 08 30 30 00 EA Ac PI 75 -3 -[address] ti RA 60 1- 9- 00 SI ve MA 70 20 20 49 DE TE 78 17 17 49 6 83 PH 25 AR MA MG CY TA OF BL CY ET NT HI AN A IN C IS 13 08 30 30 00 EA Ac OS 66 -3 -[address] ti OR 80 1- 9- 00 00 SI ve BI 10 20 20 49 DE DE 40 17 17 58 1 30 PH MN AR MA ER CY 30 OF CY MG NT HI TA AN BL A ET IN C BI 00 08 09 30 30 00 EA Ac SO 18 -3 -[address] ti [place] 50 1- 9 00 SI ve OL 77 20 20 49 DE OL 43 17 17 14 0 32 PH FU AR MA MA RA CY TE OF 10 CY NT MG HI AN TA A B IN C HY 23 09 09 30 [address] 15 -0 -[address] ti OX 50 1- 9- 00 SI ve YZ 10 20 20 50 DE IN 50 17 17 00 E 1 52 PH HC AR L MA 10 CY MG OF CY TA NT BL HI ET AN A IN C VE 00 08 09 18 18 00 EA Ac NT 17 -2 -[address] ti OL 30 5- 2- 00 00 SI ve IN 68 20 20 49 DE 22 17 17 40 HF 0 91 PH A AR 90 MA CY MC G OF IN CY BUTCHER NT LE HI R AN A IN C IN 00 08 09 30 30 00 EA Ac CR 17 -2 -[address] ti US 30 5- 2- 00 00 SI ve E 87 20 20 47 DE EL 31 17 17 51 LI 0 17 PH PT AR A MA 62 CY .5 OF MC CY G NT IN HI H AN A IN C BU 51 08 09 60 30 00 EA Ac TA 86 -1 -[address] ti LB 20 9- 5- 00 00 SI ve -A 54 20 20 49 DE CE 00 17 17 49 TA 5 84 PH AL AR N- MA CA CY FF OF 50 CY -3 NT 25 HI -4 AN 0 A IN C VE 00 08 09 18 18 00 EA Ac NT 17 -0 -[address] ti OL 30 4- 1- 00 00 SI ve IN 68 20 20 49 DE 22 17 17 40 HF 0 91 PH A AR 90 MA CY MC G OF IN CY BUTCHER NT LE HI R AN A IN C BI 00 08 09 30 30 00 EA Ac SO 18 -0 -[address] ti WY 50 4- 1- 00 00 SI ve OL 77 20 20 49 DE OL 43 17 17 14 0 32 PH FU AR MA MA RA CY TE OF 10 CY NT MG HI AN TA A B IN C IN 00 07 08 30 30 00 EA Ac CR 17 -3 -[address] ti US 30 1- 5- 00 00 SI ve E 87 20 20 47 DE EL 31 17 17 51 LI 0 17 PH PT AR A MA 62 CY .5 OF MC CY G NT IN HI H AN A IN C IS 13 07 08 30 30 00 EA Ac OS 66 -2 -[address] ti OR 80 7- 5- 00 00 SI ve BI 10 20 20 49 DE DE 40 17 17 58 1 30 PH MN AR MA ER CY 30 OF CY MG NT HI TA AN BL A ET IN C CL 00 07 08 30 30 00 EA Ac 53 -2 -[address] ti SI 64 7- 5- 00 00 SI ve C 06 20 20 49 DE WY 30 17 17 14 EN 1 34 PH AT AR AL MA CY TA BL OF ET CY NT HI AN A IN C AT 60 07 08 30 30 00 EA Ac OR 50 -2 -[address] ti VA 52 4- 8- [address] 57 20 20 49 DE AT 80 17 17 14 IN 9 30 PH AR 10 MA CY MG OF TA CY BL NT ET HI AN A IN C TO 62 07 08 30 30 00 EA Ac PI 75 -1 -[address] ti RA 60 9- 1- 00 00 SI ve MA 70 20 20 49 DE TE 78 17 17 49 6 83 PH 25 AR MA MG CY TA OF BL CY ET NT HI AN A IN C BU 51 07 08 60 30 00 EA Ac TA 86 -1 -[address] ti LB 20 9- 1- 00 00 SI ve -A 54 20 20 49 DE CE 00 17 17 49 TA 5 84 PH AL AR N- MA CA CY FF OF 50 CY -3 NT 25 HI -4 AN 0 A IN C GA 67 07 08 90 30 00 EA Ac BA 87 -1 -[address] ti PE 70 9- 1- 00 00 SI ve NT 22 20 20 49 DE IN 40 17 17 49 5 85 PH 40 AR 0 MA MG CY CA OF PS CY UL NT E HI AN A IN C DI 00 07 08 60 30 00 EA Ac AZ 17 -1 -[address] ti EP 23 9- 1- 00 00 SI ve AM 92 20 20 49 DE 5 67 17 17 49 0 86 PH MG AR MA TA CY BL ET OF CY NT HI AN A IN C HM 62 07 08 28 28 00 EA Ac 01 -1 -[address] ti NI 10 1- 4- 00 00 SI ve CO 17 20 20 49 DE TI 30 17 17 40 NE 1 90 PH AR 21 MA CY MG /2 OF 4H CY R NT PA HI TC AN H A IN C VE 00 07 08 18 30 00 EA Ac NT 17 -1 -[address] ti OL 30 1- 4- 00 00 SI ve IN 68 20 20 49 DE 22 17 17 40 HF 0 91 PH A AR 90 MA CY MC G OF IN CY BUTCHER NT LE HI R AN A IN C IP 00 07 08 54 30 00 YO Ac RA 48 -1 -0 0. 00 UR ti T- 70 1- 4- 00 00 ve AL 20 20 20 0 03 PH BU 16 17 17 26 AR T 0 74 MA 0. CY 5- 3( LL 2. C 5) MG /3 ML IN 00 06 07 30 30 00 EA Ac CR 17 -2 -[address] ti US 30 3- 1- 00 00 SI ve E 87 20 20 47 DE EL 31 17 17 51 LI 0 17 PH PT AR A MA 62 CY .5 OF MC CY G NT IN HI H AN A IN C NI 43 06 07 25 5 00 EA Ac TR 59 -2 -[address] ti OG 80 3- 1- 00 00 SI ve LY 43 20 20 49 DE CE 61 17 17 23 RI 1 67 PH N AR 0. MA 4 CY MG OF TA CY BL NT ET HI AN SL A IN C AT 60 06 07 30 30 00 EA Ac OR 50 -1 -[address] ti VA 52 5- 4- [address] 57 20 20 49 DE AT 80 17 17 14 IN 9 30 PH AR 10 MA CY MG OF TA CY BL NT ET HI AN A IN C BI 00 06 07 30 30 00 EA Ac SO 18 -1 -[address] ti [place]Y 50 5- 4- 00 00 SI ve OL 77 20 20 49 DE OL 43 17 17 14 0 32 PH FU AR MA MA RA CY TE OF 10 CY NT MG HI AN TA A B IN C CL 00 06 07 30 30 00 EA Ac 53 -1 -[address] ti SI 64 5- 4- 00 00 SI ve C 06 20 20 49 DE WY 30 17 17 14 EN 1 34 PH AT AR AL MA CY TA BL OF ET CY NT HI AN A IN C VE 00 06 07 18 18 00 EA Ac NT 17 -1 -[address] ti OL 30 4- 7- 00 00 SI ve IN 68 20 20 49 DE 22 17 17 12 HF 0 84 PH A AR 90 MA CY MC G OF IN CY BUTCHER NT LE HI R AN A IN C [place] 59 06 06 27 7 00 EA Ac ED 74 -0 -[address] ti NI 60 7- 0- 00 00 SI ve SO 17 20 20 49 DE NE 31 17 17 03 0 71 PH 10 AR MA MG CY TA OF BL CY ET NT HI AN A IN C BU 00 05 06 60 30 00 EA Ac W[place] 59 -2 -[address] ti OP 13 5- 3- 00 00 SI ve IO 54 20 20 48 DE N 36 17 17 58 HC 0 99 PH L AR SR MA CY 15 0 OF MG CY NT TA HI BL AN ET A IN C CE 00 05 06 20 10 00 EA Ac FD 09 -3 -[address] ti IN 33 0- 3- 00 00 SI ve IR 16 20 20 48 DE 00 17 17 93 30 6 92 PH 0 AR MG MA CY CA PS OF UL CY E NT HI AN A IN C IN 00 05 06 30 30 00 EA Ac CR 17 -3 -[address] ti US 30 0- 3- 00 00 SI ve E 87 20 20 47 DE EL 31 17 17 51 LI 0 17 PH PT AR A MA 62 CY .5 OF MC CY G NT IN HI H AN A IN C CL 00 05 05 30 30 00 EA Ac 53 -0 -[address] ti SI 64 1- 6- 00 00 SI ve C 06 20 20 48 DE WY 30 17 17 57 EN 1 01 PH AT AR AL MA CY TA BL OF ET CY NT HI AN A IN C BE 00 05 05 15 10 00 EA Ac TA 16 -0 -[address] ti ME 80 1- 6- 00 00 SI ve TH 05 20 20 48 DE 51 17 17 57 ON 5 02 PH E AR DP MA CY 0. 05 OF % CY CR NT M HI AN A IN C IN 00 05 05 30 30 00 EA Ac CR 17 -0 -[address] ti US 30 1- 6- 00 SI ve E 87 20 20 47 DE EL 31 17 17 51 LI 0 17 PH PT AR A MA 62 CY .5 OF MC CY G NT IN HI H AN A IN C LO 16 05 05 30 30 00 EA Ac RA 71 -0 -[address] ti TA 40 1- 6 00 SI ve DI 48 20 20 48 DE NE 20 17 17 57 3 14 PH 10 AR MA MG CY TA OF BL CY ET NT HI AN A IN C FL 60 05 05 16 30 00 EA Ac UT 43 -0 -[address] ti IC 20 1- 6 00 SI ve 26 20 20 48 DE ON 41 17 17 57 E 5 15 PH WY AR OP MA CY 50 OF MC CY G NT SP HI RA AN Y A IN C BU 00 05 05 60 30 00 EA Ac W[place] 59 -0 -[address] ti OP 13 2- 6- 00 SI ve IO 54 20 20 48 DE N 36 17 17 58 HC 0 99 PH L AR SR MA CY 15 0 OF MG CY NT TA HI BL AN ET A IN C IN 00 04 04 30 30 00 EA Ac CR 17 -0 -[address] ti US 30 4- 8- 00 00 SI ve E 87 20 20 47 DE EL 31 17 17 51 LI 0 17 PH PT AR A MA 62 CY .5 OF MC CY G NT IN HI H AN A IN C VE 00 03 04 18 25 00 EA Ac NT 17 -2 -[address] ti OL 30 9- 00 SI ve IN 68 20 20 48 DE 22 17 17 16 HF 0 05 PH A AR 90 MA CY MC G OF IN CY BUTCHER NT LE HI R AN A IN C LO 16 03 04 30 30 00 EA Ac RA 71 -2 -[address] ti TA 40 6- 00 SI ve DI 48 20 20 45 DE NE 20 17 17 36 3 07 PH 10 AR MA MG CY TA OF BL CY ET NT HI AN A IN C BE 65 03 04 30 10 00 EA Ac NZ 16 -2 -[address] ti ON 20 6- 00 00 SI ve AT 53 20 20 48 DE AT 75 17 17 00 E 0 10 PH 20 AR 0 MA MG CY CA OF PS CY UL NT E HI AN A IN C CL 00 03 04 30 30 00 EA Ac 53 -2 -[address] ti SI 64 6- 1- 00 00 SI ve C 06 20 20 47 DE WY 30 17 17 69 EN 1 99 PH AT AR AL MA CY TA BL OF ET CY NT HI AN A IN C SMITH 53 03 04 20 10 00 EA Ac LF 74 -2 -[address] ti AM 60 6- 1- 00 00 SI ve ET 27 20 20 48 DE HO 20 17 17 00 XA 5 09 PH ZO AR LE MA -T CY MP OF DS CY NT TA HI BL AN ET A IN C FL 60 03 04 16 30 00 EA Ac UT 43 -2 -[address] ti IC 20 6- 00 SI ve 26 20 20 45 DE ON 41 17 17 76 E 5 28 PH WY AR OP MA CY 50 OF MC CY G NT SP HI RA AN Y A IN C FE 64 03 04 60 30 00 EA Ac RR 37 -2 -[address] ti OU 60 7- - 00 00 SI ve S 80 20 20 48 DE SMITH 91 17 17 12 LF 0 07 PH AT AR E MA 32 CY 5 MG OF CY TA NT BL HI ET AN A IN C SMITH 53 03 04 20 10 00 EA Ac LF 74 -1 -[address] ti AM 60 6- 4- 00 00 SI ve ET 27 20 20 48 DE HO 20 17 17 00 XA 5 09 PH ZO AR LE MA -T CY MP OF DS CY NT TA HI BL AN ET A IN C BE 65 03 04 30 10 00 EA Ac NZ 16 -1 -[address] ti ON 20 6- 00 00 SI ve AT 53 20 20 48 DE AT 75 17 17 00 E 0 10 PH 20 AR 0 MA MG CY CA OF PS CY UL NT E HI AN A IN C CE 16 03 04 30 30 00 EA Ac TI 71 -1 -[address] ti RI 40 6- 4- 00 00 SI ve ZI 27 20 20 48 DE NE 10 17 17 00 3 11 PH HC AR L MA 10 CY MG OF CY TA NT BL HI ET AN A IN BE 00 03 04 15 10 00 EA Ac TA 16 -1 -[address] ti ME 80 6- 4- 00 SI ve TH 05 20 20 48 DE 51 17 17 00 ON 5 12 PH E AR DP MA CY 0. 05 OF % CY CR NT M HI AN A IN C IN 30 30 00 EA Ac CR 17 -0 -[address] ti US 30 6- - 00 SI ve E 87 20 20 47 DE EL 31 17 17 51 LI 0 17 PH PT AR A MA 62 CY .5 OF MC CY G NT IN HI H AN A IN BU 60 30 00 EA Ac [place] 59 -0 -[address] ti OP 13 6- - 00 SI ve IO 54 20 20 46 DE N 36 17 17 58 HC 0 14 PH L AR SR MA CY 15 0 OF MG CY NT TA HI BL AN ET A IN CL 30 00 EA Ac 53 -2 -[address] ti SI 64 1- 7- 00 SI ve C 06 20 20 47 DE WY 30 17 17 69 EN 1 99 PH AT AR AL MA CY TA BL OF ET CY NT HI AN A IN IN 30 30 00 EA Ac CR 17 -0 -[address] ti US 30 6- 3 00 SI ve E 87 20 20 47 DE EL 31 17 17 51 LI 0 17 PH PT AR A MA 62 CY .5 OF MC CY G NT IN HI H AN A IN BU 60 30 00 EA Ac [place] 59 -3 -[address] ti OP 13 0- 4- 00 SI ve IO 54 20 20 46 DE N 36 17 17 58 HC 0 14 PH L AR SR MA CY 15 0 OF MG CY NT TA HI BL AN ET A IN CL 30 30 00 EA Ac 53 -2 -[address] ti SI 64 1- 7- 00 SI ve C 06 20 20 45 DE WY 30 17 17 36 EN 1 05 PH AT AR AL MA CY TA BL OF ET CY NT HI AN A IN C SE 60 30 00 EA Ac RE 17 -2 -[address] ti VE 30 1- 7 00 SI ve NT 52 20 20 46 DE 10 17 17 87 DI 0 92 PH SK AR US MA CY 50 OF MC CY G NT HI AN A IN C DI 00 01 02 12 30 00 EA Ac AZ 17 -2 -[address] ti EP 23 - 7- 00 SI ve AM 92 20 20 0 45 DE 77 17 17 36 10 0 03 PH AR MG MA CY TA BL OF ET CY NT HI AN A IN C VE 00 01 02 18 25 00 EA Ac NT 17 -2 -[address] ti OL 30 - 00 SI ve IN 68 20 20 45 DE 22 17 17 36 HF 0 04 PH A AR 90 MA CY MC G OF IN CY BUTCHER NT LE HI R AN A IN C LO 16 03 28 29 30 00 EA Ac RA 71 -2 -[address] ti TA 40 1- 7 00 SI ve DI 48 20 20 45 DE NE 20 17 17 36 3 07 PH 10 AR MA MG CY TA OF BL CY ET NT HI AN A IN C GA 67 01 02 30 00 EA Ac BA 87 -2 -[address] ti PE 70 3- 7 00 SI ve NT 22 20 20 47 DE IN 40 17 17 33 5 63 PH 40 AR 0 MA MG CY CA OF PS CY UL NT E HI AN A IN C BU 00 12 60 30 00 EA Ac [place] 59 -2 -[address] ti OP 13 8- 0- 00 SI ve IO 54 20 20 46 DE N 36 16 17 58 HC 0 14 PH L AR SR MA CY 15 0 OF MG CY NT TA HI BL AN ET A IN C LO 16 12 04 25 30 00 EA Ac RA 71 -1 -[address] ti TA 40 3- 9 00 SI ve DI 48 20 20 45 DE NE 20 16 17 36 3 07 PH 10 AR MA MG CY TA OF BL CY ET NT HI AN A IN C CL 00 12 30 30 00 EA Ac 53 -1 -[address] ti SI 64 3- 9- 00 SI ve C 06 20 20 45 DE WY 30 16 17 36 EN 1 05 PH AT AR AL MA CY TA BL OF ET CY NT HI AN A IN C FL 60 12 01 16 30 00 EA Ac UT 43 -1 -[address] ti IC 20 3- 9 00 SI ve 26 20 20 45 DE ON 41 16 17 76 E 5 28 PH WY AR OP MA CY 50 OF MC CY G NT SP HI RA AN Y A IN C VE 00 12 01 18 25 00 EA Ac NT 17 -1 -[address] ti OL 30 3- 9- 00 00 SI ve IN 68 20 20 45 DE 22 16 17 36 HF 0 04 PH A AR 90 MA CY MC G OF IN CY BUTCHER NT LE HI R AN A IN C SE 00 12 01 60 30 00 EA Ac RE 17 -1 -[address] ti VE 30 3- 9- 00 00 SI ve NT 52 20 20 46 DE 10 16 17 87 DI 0 92 PH SK AR US MA CY 50 OF MC CY G NT HI AN A IN C KE 00 02 0 No TO 40 -0 RO 93 9- Lo LA 79 20 ng C 50 14 er 30 1 Ac MG ti /M ve L AL ON 00 02 0 No DA 64 -0 NS 16 9- Lo ET 08 20 ng RO 02 14 er N 5 HC Ac L ti 4 ve MG /2 ML AL Sa 63 02 0 No li 80 -0 ne 70 9- Lo 10 20 ng Fl 07 14 er us 5 h Ac 10 ti ML ve Sy ri ng e Mo 00 02 0 No rp 40 -0 hi 91 9- Lo ne 25 20 ng 83 14 er 4M 0 G/ Ac Ml ti ve Sy ri ng e W[place] 00 02 0 No OM 64 -0 ET 11 9- Lo BUTCHER 49 20 ng ZI 53 14 er NE 5 Ac 25 ti ve MG /M L AM PU L TR 00 02 0 No AM 09 -0 AD 30 9- Lo OL 05 20 ng 80 14 er 50 1H MG Ac ti TA ve BL ET TA KE HO ME SO 00 02 0 No DI 40 -0 UM 97 9- Lo 98 20 ng CH 42 14 er LO 0 RI Ac DE ti ve 0. 9% SO JEFFREY TI ON BU 00 06 10 3 30 5 EA 23 AR Ac TA 60 -2 -[address] 09 NO ti LB 32 7- 3- 00 SI 64 LD ve -A 54 20 20 DE CE 42 11 11 RI TA 8 PH CH AL AR AR N- MA D CA CY W FF OF 50 -3 CY 25 NT -4 HI 0 AN A NO 00 09 10 3 12 30 EA 24 EI Ac RT 59 -2 -[address] 28 CH ti RI 15 8- 1- 00 SI 35 HO ve PT 78 20 20 0 DE RN YL 70 11 11 IN 1 PH GE E AR RA HC MA LD L CY R 25 OF MG CY CA NT P HI AN A SA 00 10 09 6 60 30 EA 19 EI Ac VE 45 -1 -[address] 54 CH ti LL 61 5- 7- 00 SI 93 HO ve A 55 20 20 DE RN 50 06 10 11 0 PH GE MG AR RA MA LD TA CY R BL ET OF CY NT HI AN A NO 00 11 09 3 60 30 EA 20 EI Ac RT 59 -2 -[address] 12 CH ti RI 15 4- 7- 00 SI 87 HO ve PT 78 20 20 DE RN YL 70 10 11 IN 1 PH GE E AR RA HC MA LD L CY R 25 OF MG CY CA NT P HI AN A CH 00 11 09 1 60 8 EA 20 EI Ac LO 83 -2 -[address] 12 CH ti RP 20 4- 7- 00 SI 88 HO ve RO 30 20 20 DE RN MA 10 10 11 ZI 0 PH GE NE AR RA MA LD 25 CY R MG OF TA CY BL NT ET HI AN A PO 00 09 09 0 60 30 EA 24 AR Ac TA 78 -2 -[address] 27 NO ti SS 15 7- 7- 00 SI 27 LD ve IU 72 20 20 DE M 00 11 11 RI CL 5 PH CH AR AR ER MA D CY W 20 OF ME Q CY TA NT BL HI ET AN A BU 00 06 09 3 30 5 EA 23 AR Ac TA 60 -2 -[address] 09 NO ti LB 32 7- 2- 00 SI 64 LD ve -A 54 20 20 DE CE 42 11 11 RI TA 8 PH CH AL AR AR N- MA D CA CY W FF OF 50 -3 CY 25 NT -4 HI 0 AN A NA 53 09 09 5 60 5 EA 23 AR Ac [place] 74 -0 -[address] 93 NO ti OX 60 2- 2- 00 SI 44 LD ve EN 19 20 20 DE 01 11 11 RI 50 0 PH CH 0 AR AR MG MA D CY W TA BL OF ET CY NT HI AN A RA 53 09 09 5 60 30 EA 23 AR Ac NI 74 -0 -[address] 93 NO ti TI 60 2- 2- 00 SI 45 LD ve DI 25 20 20 DE NE 31 11 11 RI 0 PH CH 15 AR AR 0 MA D MG CY W TA OF BL ET CY NT HI AN A FE 64 09 09 5 60 30 EA 23 AR Ac RR 37 -0 -[address] 93 NO ti OU 60 2- 2- 00 SI 46 LD ve S 80 20 20 DE SMITH 91 11 11 RI LF 0 PH CH AT AR AR E MA D 32 CY W 5 MG OF TA CY BL NT ET HI AN A NA 53 08 08 0 10 5 EA 23 SO Ac W[place] 74 -1 -[address] 72 KA ti OX 60 9- 9- 00 SI 70 N ve EN 19 20 20 DE BA 01 11 11 BA 50 0 PH TU 0 AR ND MG MA E CY O TA BL OF ET CY NT HI AN A 00 06 06 0 60 30 EA 23 AR Ac 59 -2 -[address] 09 NO ti 10 7- 7- 00 SI 63 LD ve 38 20 20 DE 70 11 11 RI 1 PH CH AR AR MA D CY W OF CY NT HI AN A BU 00 06 06 3 30 5 EA 23 AR Ac TA 60 -2 -[address] 09 NO ti LB 32 7- 7- 00 SI 64 LD ve -A 54 20 20 DE CE 42 11 11 RI TA 8 PH CH AL AR AR N- MA D CA CY W FF OF 50 -3 CY 25 NT -4 HI 0 AN A FE 00 11 06 5 36 12 EA 19 NI Ac RR 67 -1 -[address] 95 CH ti OU 70 2- 3- 00 SI 50 OL ve S 07 20 20 DE S SMITH 01 10 11 SHRUTHI LF 0 PH E AT AR A E MA 32 CY 5 MG OF TA CY BL NT ET HI AN A CH 00 12 06 1 56 28 EA 20 MA Ac AN 06 -2 -[address] 49 CR ti TI 90 1- 3- 00 SI 09 IN ve X 46 20 20 DE IC 1 95 10 11 I MG 6 PH VA AR LE TA MA NT BL CY IN ET A OF CY NT HI AN A PO 00 03 06 2 60 30 EA 21 NI Ac TA 78 -2 -[address] 85 CH ti SS 15 5- 3- 00 SI 42 OL ve IU 72 20 20 DE S M 00 11 11 SHRUTHI CL 5 PH E AR A ER MA CY 20 OF ME Q CY TA NT BL HI ET AN A SA 00 10 05 6 60 30 EA 19 EI Ac VE 45 -1 -[address] 54 CH ti LL 61 5- 3- 00 SI 93 HO ve A 55 20 20 DE RN 50 06 10 11 0 PH GE MG AR RA MA LD TA CY R BL ET OF CY NT HI AN A RA 53 03 05 2 30 15 EA 21 NI Ac NI 74 -2 -[address] 85 CH ti TI 60 5- 3- 00 SI 43 OL ve DI 25 20 20 DE S NE 31 11 11 SHRUTHI 0 PH E 15 AR A 0 MA MG CY TA OF BL ET CY NT HI AN A RA 53 03 04 2 30 15 EA 21 NI Ac NI 74 -2 -[address] 85 CH ti TI 60 5- 6- 00 SI 43 OL ve DI 25 20 20 DE S NE 31 11 11 SHRUTHI 0 PH E 15 AR A 0 MA MG CY TA OF BL ET CY NT HI AN A FE 00 11 03 5 36 12 EA 19 NI Ac RR 67 -1 -[address] 95 CH ti OU 70 2- 5- 00 SI 50 OL ve S 07 20 20 DE S SMITH 01 10 11 SHRUTHI LF 0 PH E AT AR A E MA 32 CY 5 MG OF TA CY BL NT ET HI AN A PO 00 03 03 2 60 30 EA 21 NI Ac TA 78 -2 -[address] 85 CH ti SS 15 5- 5- 00 SI 42 OL ve IU 72 20 20 DE S M 00 11 11 SHRUTHI CL 5 PH E AR A ER MA CY 20 OF ME Q CY TA NT BL HI ET AN A RA 00 03 03 2 30 15 EA 21 NI Ac NI 78 -2 -[address] 85 CH ti TI 11 5- 5- 00 SI 43 OL ve DI 88 20 20 DE S NE 31 11 11 SHRUTHI 0 PH E 15 AR A 0 MA MG CY TA OF BL ET CY NT HI AN A BU 00 02 02 0 36 6 EA 21 NI Ac TA 60 -1 -[address] 24 CH ti LB 32 5- 5- 00 SI 71 OL ve -A 54 20 20 DE S CE 42 11 11 SHRUTHI TA 8 PH E AL AR A N- MA CA CY FF OF 50 -3 CY 25 NT -4 HI 0 AN A 00 01 01 0 30 5 EA 20 NI Ac 07 -2 -[address] 92 CH ti 46 4- 4- 00 SI 97 OL ve 30 20 20 DE S 41 11 11 SHRUTHI 3 PH E AR A MA CY OF CY NT HI AN A SA 00 10 12 6 60 30 EA 19 EI Ac VE 45 -1 -[address] 54 CH ti LL 61 5- 1- 00 SI 93 HO ve A 55 20 20 DE RN 50 06 10 10 0 PH GE MG AR RA MA LD TA CY R BL ET OF CY NT HI AN A 00 12 12 2 53 30 EA 20 MA Ac 06 -2 -[address] 47 CR ti 90 0- 1- 00 SI 64 IN ve 47 20 20 DE IC 19 10 10 I 7 PH VA AR LE MA NT CY IN A OF CY NT HI AN A BU 00 12 12 0 36 6 EA 20 NI Ac TA 60 -2 -[address] 49 CH ti LB 32 1- 1- 00 SI 30 OL ve -A 54 20 20 DE S CE 42 10 10 SHRUTHI TA 8 PH E AL AR A N- MA CA CY FF OF 50 -3 CY 25 NT -4 HI 0 AN A NO 00 11 11 3 60 30 EA 20 EI Ac RT 59 -2 -[address] 12 CH ti RI 15 4- 4- 00 SI 87 HO ve PT 78 20 20 DE RN YL 70 10 10 IN 1 PH GE E AR RA HC MA LD L CY R 25 OF MG CY CA NT P HI AN A CH 00 11 11 1 60 8 EA 20 EI Ac LO 83 -2 -[address] 12 CH ti RP 20 4- 4- 00 SI 88 HO ve RO 30 20 20 DE RN MA 10 10 10 ZI 0 PH GE NE AR RA MA LD 25 CY R MG OF TA CY BL NT ET HI AN A RA 53 11 11 0 30 15 EA 19 NI Ac NI 74 -1 -[address] 95 CH ti TI 60 2- 2- 00 SI 48 OL ve DI 25 20 20 DE S NE 30 10 10 SHRUTHI 5 PH E 15 AR A 0 MA MG CY TA OF BL ET CY NT HI AN A BU 00 11 11 0 36 6 EA 19 NI Ac TA 60 -1 -[address] 95 CH ti LB 32 2- 2- 00 SI 49 OL ve -A 54 20 20 DE S CE 42 10 10 SHRUTHI TA 8 PH E AL AR A N- MA CA CY FF OF 50 -3 CY 25 NT -4 HI 0 AN A FE 00 11 11 5 36 12 EA 19 NI Ac RR 67 -1 -[address] 95 CH ti OU 70 2- 2- 00 SI 50 OL ve S 07 20 20 DE S SMITH 01 10 10 SHRUTHI LF 0 PH E AT AR A E MA 32 CY 5 MG OF TA CY BL NT ET HI AN A NI 00 11 11 0 14 14 EA 19 MA Ac CO 06 -0 -[address] 88 CR ti TI 75 8- 8- 00 SI 10 IN ve NE 12 20 20 DE IC 61 10 10 I 21 4 PH VA AR LE MG MA NT /2 CY IN 4H A R OF PA TC CY H NT HI AN A RA 53 10 10 0 30 15 EA 19 NI Ac NI 74 -2 -[address] 69 CH ti TI 60 6- 6- 00 SI 40 OL ve DI 25 20 20 DE S NE 30 10 10 SHRUTHI 5 PH E 15 AR A 0 MA MG CY TA OF BL ET CY NT HI AN A PO 00 10 10 0 60 30 EA 19 NI Ac TA 78 -1 -[address] 57 CH ti SS 15 8- 8- 00 SI 45 OL ve IU 72 20 20 DE S M 00 10 10 SHRUTHI CL 5 PH E AR A ER MA CY 20 OF ME Q CY TA NT BL HI ET AN A MO 65 10 10 0 1. 1 EA 19 ANDRESSA Ac 64 -1 -[address] 58 SC ti WY 90 8- 8- 0 SI 45 H ve EP 20 20 20 DE AN 17 10 10 TO PO 5 PH NI WD AR O ER MA CY PA CK OF ET CY NT HI AN A SA 00 10 10 6 60 30 EA 19 EI Ac VE 45 -1 -[address] 54 CH ti LL 61 5- 7- 00 SI 93 HO ve A 55 20 20 DE RN 50 06 10 10 0 PH GE MG AR RA MA LD TA CY R BL ET OF CY NT HI AN A RA 53 09 09 0 30 15 EA 19 NI Ac NI 74 -2 -[address] 33 CH ti TI 60 9- 9- 00 SI 50 OL ve DI 25 20 20 DE S NE 30 10 10 SHRUTHI 5 PH E 15 AR A 0 MA MG CY TA OF BL ET CY NT HI AN A BU 00 09 09 0 36 6 EA 19 NI Ac TA 60 -2 -[address] 32 CH ti LB 32 8- 8- 00 SI 91 OL ve -A 54 20 20 DE S CE 42 10 10 SHRUTHI TA 8 PH E AL AR A N- MA CA CY FF OF 50 -3 CY 25 NT -4 HI 0 AN A FE 00 09 09 0 36 12 EA 19 NI Ac RR 67 -2 -[address] 24 CH ti OU 70 2- 2- 00 SI 50 OL ve S 07 20 20 DE S SMITH 01 10 10 SHRUTHI LF 0 PH E AT AR A E MA 32 CY 5 MG OF TA CY BL NT ET HI AN A BU 00 08 08 0 36 6 EA 18 NI Ac TA 60 -0 -[address] 58 CH ti LB 32 4- 4- 00 SI 70 OL ve -A 54 20 20 DE S CE 42 10 10 SHRUTHI TA 8 PH E AL AR A N- MA CA CY FF OF 50 -3 CY 25 NT -4 HI 0 AN A BU 00 07 07 0 36 6 EA 18 NI Ac TA 60 -1 -[address] 32 CH ti LB 32 3- 3- 00 SI 75 OL ve -A 54 20 20 DE S CE 42 10 10 SHRUTHI TA 8 PH E AL AR A N- MA CA CY FF OF 50 -3 CY 25 NT -4 HI 0 AN A BU 00 03 03 0 36 6 EA 16 NI Ac TA 59 -0 -[address] 59 CH ti LB 13 2- 2- 00 SI 46 OL ve -A 36 20 20 DE S CE 90 10 10 SHRUTHI TA 5 PH E AL AR A N- MA CA CY FF OF 50 -3 CY 25 NT -4 HI 0 AN A 00 03 03 0 30 5 EA 16 NI Ac 07 -0 -[address] 59 CH ti 46 2- 2- 00 SI 47 OL ve 30 20 20 DE S 41 10 10 SHRUTHI 3 PH E AR A MA CY OF CY NT HI AN A BU 00 02 02 00 36 6 EA 16 NI Ac TA 59 -0 -[address] 26 CH ti LB 13 5- 1- 00 SI 04 OL ve -A 36 20 20 DE S CE 90 10 10 SHRUTHI TA 5 PH E AL AR A N- MA CA CY FF OF 50 CY -3 NT 25 HI -4 AN 0 A BU 00 01 01 00 36 7 EA 15 NI Ac TA 59 -0 -[address] 90 CH ti LB 13 9- 8- 00 SI 22 OL ve -A 36 20 20 DE S CE 90 10 10 SHRUTHI TA 5 PH E AL AR A N- MA CA CY FF OF 50 CY -3 NT 25 HI -4 AN 0 A BU 00 12 12 00 36 7 EA 15 NI Ac TA 59 -1 -[address] 57 CH ti LB 13 4- 1- 00 SI 60 OL ve -A 36 20 20 DE S CE 90 09 09 SHRUTHI TA 5 PH E AL AR A N- MA CA CY FF OF 50 CY -3 NT 25 HI -4 AN 0 A 00 10 10 00 30 5 WA 70 NI Ac 07 -1 -2 .0 L- 41 CH ti 46 4- 2- 00 MA 35 OL ve 30 20 20 RT 2 S 41 09 09 SHRUTHI 3 PH E AR A MA CY #5 91 BU 00 10 10 00 36 3 WA 70 NI Ac TA 14 -0 -2 .0 L- 40 CH ti LB 31 9- 2- 00 MA 70 OL ve -A 78 20 20 RT 0 S CE 70 09 09 SHRUTHI TA 1 PH E AL AR A N- MA CA CY FF #5 50 91 -3 25 -4 0 00 09 10 00 30 2 WA 44 SC Ac 40 -2 -0 .0 L- 79 HU ti 60 5- 8- 00 MA 95 LS ve 35 20 20 RT 7 TA 70 09 09 D 5 PH CA AR MP MA BE CY LL K #5 91 BU 00 09 09 00 36 3 WA 70 NI Ac TA 14 -1 -2 .0 L- 36 CH ti LB 31 1- 4- 00 MA 32 OL ve -A 78 20 20 RT 2 S CE 70 09 09 SHRUTHI TA 1 PH E AL AR A N- MA CA CY FF #5 50 91 -3 25 -4 0 MA 42 07 07 00 59 1 WA 70 NI Ac LA 04 -0 -1 .0 L- 27 CH ti TH 30 8- 6- 00 MA 69 OL ve IO 15 20 20 RT 4 S N 02 09 09 SHRUTHI 0. 3 PH E 5% AR A MA LO CY TI ON #5 91 OX 00 05 05 00 18 3 WA 22 NI Ac YC 40 -0 -2 .0 L- 16 CH ti OD 60 2- 1- 00 MA 05 OL ve ON 51 20 20 RT 6 S E- 20 09 09 SHRUTHI AC 1 PH E ET AR A AM MA IN CY OP HE #5 N 91 5- 32 5 00 04 05 00 36 6 WA 44 NI Ac 09 -2 -0 .0 L- 76 CH ti 30 8- 7- 00 MA 24 OL ve 89 20 20 RT 8 S 00 09 09 SHRUTHI 5 PH E AR A MA CY #5 91 Immunization Name Date Rout CVX Reac Dose Comm Prov Is Faci e tion ent ider Refu lity Give sed n IIV4 11-0 158 [facility] No WEDC 9-20 O O VACC 16 DIST DIST RICT RICT SPLI T HLTH HLTH VIRU S DEPT DEPT 0.5 SINDHU SINDHU ML DOS FOR IM USE IIV3 09-2 141 [place] No JOHNSON 6-20 MARCIE MARCIE VACC 12 CO CO INE HEAL HEAL SPLI TH TH T CENT CENT VIRU ER ER S 0.5 ML DOSA GE IM USE IIV3 11-0 141 [place] No J[place]ON 9-20 MARCIE MARCIE VACC 11 CO CO INE HEAL HEAL SPLI TH TH T CENT CENT VIRU ER ER S 0.5 ML DOSA GE IM USE IIV3 10-2 141 [place] No [place] 7-20 MARCIE MARCIE VACC 10 CO CO INE HEAL HEAL SPLI TH TH T CENT CENT VIRU ER ER S 0.5 ML DOSA GE IM USE Vital Signs 05-05-2013 22:55 Name Value Interpretat Reference Comment ion Range BP 71 mm[Hg] Diastolic BP Systolic 111 mm[Hg] Heart 90 /min Rate/Pulse O2% 95 % Respiratory 20 /min Rate 05-05-2013 21:54 Name Value Interpretat Reference Comment ion Range BP 79 mm[Hg] Diastolic BP Systolic 129 mm[Hg] Heart 100 /min Rate/Pulse O2% 95 % Respiratory 20 /min Rate Results Labs Lab Lab Date Result Refere Interp Status Commen Order Detail nces retati t Range on Drugs identified in Urine by Screen method (10-12-2016 14:30) Ampheta NEGATIV <1000 complet mine 017 E ed [Presen 14:30 ce] in Urine by Screen method 11-Hydr NEGATIV <50 complet oxy 017 E ed delta-9 14:30 tetrahy drocann abinol [Presen ce] in Unspeci fied specime n BASIC METABOLIC PANEL (05-05-2013 21:00) Glucose 114 74-106 complet 014 mg/dL ed Bld-mCn 21:00 c BUN 14 7-18 complet Bld-mCn 014 mg/dL ed c 21:00 Creat 0.9 0.6-1.0 complet SerPl-m 014 mg/dL ed Cnc 21:00 Creat 56 50-200 complet Cl 014 ML/MIN ed predict 21:00 ed SerPl C-G-vRa te GFR/BSA 02-09-2 65 59- complet .pred 014 ML/MIN ed SerPl 21:00 Schwart z-vRate Sodium 142 136-145 complet SerPl-s 014 mmoL/L ed Cnc 21:00 Potassi 3.5 3.5-5.1 complet um 014 mmoL/L ed SerPl-s 21:00 Cnc Chlorid 102 98-107 complet e 014 mmoL/L ed SerPl-s 21:00 Cnc CO2 31 21.0-32 complet SerPl-s 014 mmoL/L .0 ed Cnc 21:00 Calcium 10.0 8.5-10. complet 014 mg/dL 1 ed SerPl-m 21:00 Cnc CBC with AUTO DIFF (05-05-2013 21:00) WBC # 8.9 4.8-10. complet Bld 014 K/MM3 8 ed Auto 21:00 RBC # 5.11 4.2-5.4 complet Bld 014 M/mm3 ed Auto 21:00 Hgb 15.7 12.2-16 complet Bld-mCn 014 g/dL .2 ed c 21:00 Hct Fr 49.5 % 37.0-47 complet Bld 014 .0 ed 21:00 MCV RBC 96.9 fl 82.2-97 complet 014 .8 ed 21:00 MCH RBC 30.7 pg 27-31.2 complet Qn 014 ed Auto 21:00 MEAN 31.7 31.8-35 complet CORPUSC 014 g/dl .4 ed ULAR 21:00 HGB CONC RDW RBC 15.8 % 11.5-17 complet Auto 014 .5 ed 21:00 Platele 174 142-424 complet t Bld 014 K/mm3 ed Ql 21:00 Manual MEAN 8.0 fl 7.4-10. complet PLATELE 014 4 ed T 21:00 VOLUME Granulo 77.4 % 37.0-80 complet cytes 014 .0 ed Fr Bld 21:00 Auto LYMPH % 14.7 % 10-50.0 complet 014 ed 21:00 Monocyt 6.5 % 1.7-9.3 complet es Fr 014 ed Bld 21:00 Auto Eosinop 1.3 % 0.1-12. complet hil Fr 014 0 ed Bld 21:00 Auto Basophi 0.2 % 0.1-2.0 complet ls Fr 014 ed Bld 21:00 Auto Granulo 6.9 1.8-7.8 complet cytes # 014 K/mm3 ed Bld 21:00 Auto Lymphoc 1.3 0.7-4.5 complet ytes Fr 014 K/mm3 ed Bld 21:00 Auto Monocyt 0.6 0.1-1.0 complet es # 014 K/mm3 ed Bld 21:00 Auto Eosinop 0.1 0.0-0.4 complet hil # 014 K/mm3 ed Bld 21:00 Auto Basophi 0.0 0-0.2 complet ls # 014 K/MM3 ed Bld 21:00 Auto URINALYSIS/COMPLETE (05-05-2013 20:48) URINE YELLOW YELLOW complet COLOR 014 ed 20:48 URINE CLOUDY CLEAR complet APPEARA 014 ed NCE 20:48 URINE NEGATIV NEG complet GLUCOSE 014 E ed - 20:48 DIPSTIC K URINE NEGATIV NEG complet BILIRUB 014 E ed IN - 20:48 DIPSTIC K URINE NEGATIV NEG complet KETONE 014 E mg/dL ed 20:48 URINE 1.020 1.005-1 complet SPECIFI 014 UNK .030 ed C 20:48 GRAVITY URINE 2+ NEG complet BLOOD 014 ed 20:48 URINE 7.0 UNK 5.0-8.5 complet PH 014 ed 20:48 URINE NEGATIV NEG complet PROTEIN 014 E mg/dL ed - 20:48 DIPSTIC K URINE 0.2 NEG complet UROBILI 014 E.U./dL ed NOGEN - 20:48 DIPSTIC K URINE NEGATIV NEG complet NITRATE 014 E ed - 20:48 DIPSTIC K URINE NEGATIV NEG complet LEUK 014 E ed ESTERAS 20:48 E URINE 5-10 0 complet RBC 014 rbc/hpf ed 20:48 URINE 4+ NONE complet AMORPH 014 ed SEDIMEN 20:48 T Procedures Procedure DOS Code Location Performer Comment BASIC 93816 LANDEN SCHUSTER METABOLIC 7 [facility] PANEL [facility] INC CALCIUM TOTAL URINE 21449 LANDEN SCHUSTER 7 [facility] TEST INC INC VISUAL COLOR CMPRSN [place] [address] LANDEN SCHUSTER SAME 7 [facility] PHYS/QHP INC INC INITIAL 15 MINS <5 YRS CATH PLMT 37243 LANDEN SCHUSTER L HRT & 7 [facility] ARTS INC INC W/NJX & ANGIO IMG S&I BLOOD 38438 LANDEN SCHUSTER COUNT 7 [facility] COMPLETE INC INC AUTO&AUTO DIFRNTL WBC DIAGNOSTI 79028 LANDEN SCHUSTER C 7 [facility] MAMMOGRAP INC INC HY COMPUTER- AIDED DETCJ BI US BREAST 61335 LANDEN SCHUSTER UNI REAL 7 [facility] TIME INC INC WITH IMAGE COMPLETE FITTING 19235 HABASH HABASH SPECTACLE 7 S XCPT APHAKIA BIFOCAL BIFOCL V2208 HABASH HABASH +/-4.25-+ 7 /-7.00D SPHER 2.12-4.00 D CYL-EA FRAMES V2020 HABASH HABASH PURCHASES 7 BIFOCL V2207 HABASH HABASH +/-4.25-+ 7 /-7.00D SPHER 0.12-2.00 D CYL-EA O2 CONC 1 E1390 SHAQ RODRIGUEZ 7 HOME HOME 85%/>02 [facility] G0463 LANDEN SCHUSTER OUTPATIEN 7 [facility] T CLIN INC INC VISIT ASSESS & MGMT PT EVENT C1764 LANDEN SCHUSTER RECORDER 7 [facility] CARDIAC INC INC IMPLANTAT 11355 LANDEN SCHUSTER ION 7 [facility] PT-ACTIVA INC INC SREE CARDIAC EVENT RECORDER ENDOMETRI 86964 [facility] BX 7 PHYSICIAN W/WO S GROUP ENDOCERVI X BX W/[place] [address] LANDEN SCHUSTER RETROPERI 7 [facility] TONEAL [place] W/[place] [address] [facility] RETROPERI 7 MEDICAL TONEAL IMAGING REAL TIME ASS W/IMAGE LIMITED CT THORAX 59570 [facility]IE [facility] 7 MEDICAL W/CONTRAS IMAGING T ASS MATERIAL FINAL RPT G[address]/MRI 7 MEDICAL CHEST/NCK IMAGING /U/S NO ASS THR NOD<1.[address] [place] [address] [facility] ABDOMEN 7 MEDICAL W/CONTRAS IMAGING T ASS MATERIAL FINAL G9551 [facility] REPR ABD 7 MEDICAL IMAG STS IMAGING W/O ASS INCIDNT FND LES NTD: [place] [address] LANDEN SCHUSTER ANGIOGRAP 7 [facility] HY INC INC ABDOMEN W/CONTRAS T/NONCONT RAST FINAL G9638 [facility] REPORTS 7 MEDICAL W/O DOC IMAGING 1/[place] [address] LANDEN SCHUSTER ANGIOGRAP 7 [facility] HY CHEST INC INC W/CONTRAS T/NONCONT RAST SCREENING G0202 [facility] 7 MEDICAL MAMMOGRAP IMAGING HY JERRY ASS INCL CAD WHEN PERFORMD INFO [id number] [facility] 7 MEDICAL ANALYSIS [place] [address] [facility] TRANSVAGI 7 MEDICAL NAL IMAGING ASS MAMMO 3340F [facility] ASSESSMEN 7 MEDICAL T CAT IMAGING INCOMP ASS ADDTNL IMAGE DOCD SCREENING 37559 LANDEN MCKEONON 7 [facility] MAMMOGRAP INC INC HY BI 2-VIEW BREAST INC CAD COLLECTIO 88623 LANDEN Hurley VENOUS 7 [facility] BLOOD INC INC VENIPUNCT URE CREATININ 39547 LANDEN SCHUSTER E BLOOD 7 [facility] INC INC ASSAY [place] [address] L[facility] SCHUSTER [facility] NITROGEN INC INC QUANTITAT JADON BLOOD 72076 [facility] OCCULT 7 PHYSICIAN PHYSICIAN PEROXIDAS S GROUP S GROUP E ACTV QUAL FECES 1-3 SPEC IADNA 19498 [facility] NEISSERIA 7 PHYSICIAN S GROUP GONORRHOE AE DIRECT PROBE TQ IADNA 41204 BIO BIO NEISSERIA 7 REFERNCE 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 GONORRHOE IES IES AE AMPLIFIED PROBE TQ IADNA NOS 45793 BIO BIO 7 REFERNCE REFERNCE AMPLIFIED LABORATOR LABORATOR PROBE TQ IES IES EACH ORGANISM IADNA 19159 BIO BIO TRICHOMON 7 REFERNCE 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 VAGINALIS IES IES AMPLIFIED PROBE TECH IADNA 12300 BIO BIO CHLAMYDIA 7 REFERNCE 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 TRACHOMAT IES IES IS AMPLIFIED PROBE TQ CULTURE 46587 [facility] CHLAMYDIA 7 PHYSICIAN ANY S GROUP SOURCE CYTP C/V 49523 BIO BIO AUTO THIN 7 REFERNCE REFERNCE LYR LABORATOR LABORATOR PREPJ SCR IES IES MNL RESCR PHYS ECG 87961 LAND[facility] SCHUSTER [facility]INE [facility] ECG INC INC W/LEAST 12 LDS TRCG ONLY W/O I&R ECG 29634 [facility] ROUTINE 7 PHYSICIAN ECG S GROUP W/LEAST 12 LDS I&R ONLY O2 CONC 1 E1390 [facility] [place] 7 HOME HOME 85%/>02 MEDICAL MEDICAL CONC AT EQUIPME EQUIPME PRSC FLW RATE DRUG TEST 86607 LANDEN SCHUSTER PRSMV [facility] QUAL DIR INC INC OPTICAL OBS PER DAY NEBULIZER E0570 [facility] NEW WITH 7 HOME HOME COMPRESSO MEDICAL MEDICAL R EQUIPME EQUIPME ADMN SET A7005 YOUR YOUR W/SM VOL 7 PHARMACY PHARMACY [facility] NEBULIZR NON-DISPB L ECG 60511 LANDEN SCHUSTER ROUTINE 7 [facility] ECG INC INC W/LEAST 12 LDS TRCG ONLY W/O I&R O2 CONC 1 E1390 [facility] [place] 7 HOME HOME 85%/>02 MEDICAL MEDICAL CONC AT EQUIPME EQUIPME PRSC FLW RATE INTRDUCR/ C1894 LANDEN SCHUSTER SHEATH 7 [facility] NOT GUID INC INC INTRACARD EP NON-[facility] 66017 [facility] DISCHARGE 7 PHYSICIAN DAY S GROUP MANAGEMEN T 30 MIN/< LIPID 80710 LANDEN SCHUSTER PANEL [facility] INC INC CATHETER C1725 LANDEN SCHUSTER TRANSLUMI 7 [facility] NAL INC INC ANGIOPLAS TY NON-LASER BASIC 68725 LANDEN SCHUSTER METABOLIC 7 [facility] PANEL INC INC CALCIUM TOTAL CLOSURE C1760 LANDEN SCHUSTER DEVICE 7 [facility] VASCULAR INC INC GUIDE C1769 LANDEN SCHUSTER WIRE 7 [facility] INC INC STENT C1876 LANDEN SCHUSTER NON-COATE 7 [facility] D/NON-COV INC INC ERED W/DELIVER Y SYSTEM COLLECTIO 16705 LANDEN SCHUSTER N VENOUS 7 [facility] BLOOD INC INC VENIPUNCT URE BLOOD 26294 LANDEN SCHUSTER COUNT 7 [facility] COMPLETE INC INC AUTO&AUTO DIFRNTL WBC COAGULATI 30927 LANDEN SCHUSTER ON TIME 7 [facility] ACTIVATED INC INC PRQ 08673 [facility] TRLUML 7 PHYSICIAN CORONARY S GROUP STENT W/ANGIO [facility] [id number] LANDEN SCHUSTER OBSERVATI 7 [facility] ON INC INC [facility] G0378 LANDEN SCHUSTER OBSERVATI 7 [facility] ON INC INC SERVICE PER HOUR CATH PLMT 63762 LANDEN SCHUSTER L HRT & 7 [facility] ARTS INC INC W/NJX & ANGIO IMG S&I GUIDE C1769 LANDEN SCHUSTER WIRE 7 [facility] INC INC INITIAL 60034 [facility] 7 PHYSICIAN CARE/DAY S GROUP 50 MINUTES CATHETER C1725 LANDEN SCHUSTER TRANSLUMI 7 [facility] NAL INC INC ANGIOPLAS TY NON-LASER URINE 03822 LANDEN SCHUSTER 7 MEM [facility] TEST INC INC VISUAL COLOR CMPRSN METHS AMB A0427 [facility] SERVICE 7 AMBULANCE AMBULANCE ALS SERVICE SERVICE EMERGENCY TRANSPORT LEVEL [address] [facility] 7 PHYSICIAN ILL/INJUR S, PLLC ED PATIENT INIT 30-74 MIN GROUND A0425 [facility] MILEAGE 7 AMBULANCE AMBULANCE PER SERVICE SERVICE STATUTE MILE RADIOLOGI 98024 [place] [facility] C 7 MEDICAL EXAMINATI IMAGING ON CHEST ASS [place]ING[place]IEW FRONTAL ECG 80427 LANDEN SCHUSTER ROUTINE 7 [facility] ECG INC INC W/LEAST 12 LDS TRCG ONLY W/O I&R COMPREHEN 82485 LANDEN SCHUSTER SIVE 7 [facility] [place] [address] LANDEN SCHUSTER TROPONIN 7 [facility] [place] [address] LANDEN SCHUSTER INFUSION 7 [facility] THERAPY/P INC INC ROPHYLAXI S /DX 1ST TO 1 HR THERAPEUT 91089 LANDEN SCHUSTER IC 7 [facility] INJECTION INC INC IV PUSH EACH NEW DRUG ECG 60055 [facility] ROUTINE 7 PHYSICIAN ECG S, PLLC W/LEAST 12 LDS I&R ONLY BLOOD 98396 LANDEN SCHUSTER COUNT 7 [facility] COMPLETE INC INC AUTO&AUTO DIFRNTL WBC PRESSURIZ 72217 LANDEN SCHUSTER ED/NONPRE 7 [facility] SSURIZED INC INC INHALATIO N TREATMENT IAADIADOO 01682 [facility] GROUP A O2 CONC 1 E1390 [facility] [place] 7 HOME HOME 85%/>02 MEDICAL MEDICAL CONC AT EQUIPME EQUIPME [facility] FLW RATE O2 CONC 1 E1390 [facility] [place] 7 HOME HOME 85%/>02 MEDICAL MEDICAL CONC AT EQUIPME EQUIPME [facility] FLW RATE O2 CONC 1 E1390 [facility] [place] 7 HOME HOME 85%/>02 MEDICAL MEDICAL CONC AT EQUIPME EQUIPME [facility] FLW RATE O2 CONC 1 E1390 [facility] [place] 7 HOME HOME 85%/>02 MEDICAL MEDICAL CONC AT EQUIPME EQUIPME [facility] FLW RATE FINAL G9638 [facility] REPORTS 7 MEDICAL W/O DOC IMAGING 1/MORE ASS DOSE REDUCTION TECH FINAL RPT G[address]/MRI 7 MEDICAL CHEST/NCK IMAGING /U/S NO ASS THR NOD<1.[address] THORAX 43853 LANDNE SCHUSTER W/O 7 [facility] CONTRAST INC INC MATERIAL O2 CONC 1 E1390 [facility] [place] 6 HOME HOME 85%/>02 MEDICAL MED[facility] O[facility] CONC 1 E1390 [facility] [place] 6 HOME HOME 85%/>02 MEDICAL MEDICAL CONC AT EQUIPME EQUIPME [facility] FLW RATE PLETHYSMO 53642 [facility] BUCK GRAPHY 6 MEDICAL LUNG SERV VOLUMES [facility] W/WO N AIRWAY RESIST SPMTRY 84384 [place] W/VC 6 MEDICAL EXPIRATOR SERV Y ANA MARIA [facility]AT[facility] W/WO MXML N VOL VNTJ PULMONARY 18613 [place] STRESS 6 [place] [address] [place] DIFFUSING 6 MEDICAL CAPACITY SERV FOUNDAT[facility] N IIV4 VACC 56964 [facility] S[facility] 6 [facility] DISTRICT VIRUS 0.5 HLTH DEPT HLTH DEPT ML DOS SINDHU SINDHU FOR IM USE ANTINUCLE 43662 LANDEN SCHUSTER AR 6 [facility] ANTIBODIE INC INC S CARLOS COMPREHEN 40881 LANDEN SCHUSTER SIVE 6 [facility] METABOLIC INC INC PANEL COLLECTIO 20742 LANDEN SCHUSTER N VENOUS 6 [facility] BLOOD INC INC VENIPUNCT URE ALPHA-1-A 21899 LANDEN SCHUSTER NTITRYPSI 6 [facility] N INC INC PHENOTYPE ANTIBODY 07945 LANDEN SCHUSTER IDENTIFIC 6 [facility] ATION INC INC LEUKOCYTE ANTIBODIE S BLOOD 80469 LANDEN SCHUSTER COUNT 6 [facility] COMPLETE INC INC AUTO&[place] [address] LANDEN SCHUSTER THYROID 6 [facility] STIMULATI INC INC NG HORMONE TSH O2 CONC 1 E1390 [facility] [place] 6 HOME HOME 85%/>02 MEDICAL MEDICAL CONC AT EQUIPME EQUIPME PRSC FLW RATE O2 CONC 1 E1390 [facility] [place] 6 HOME HOME 85%/>02 MEDICAL MEDICAL CONC AT EQUIPME EQUIPME PRSC FLW RATE O2 CONC 1 E1390 [facility] [place] 6 HOME HOME 85%/>02 MEDICAL MEDICAL CONC AT EQUIPME EQUIPME PRSC FLW RATE ADMN SET A7005 YOUR YOUR W/SM VOL 6 PHARMACY PHARMACY [facility] NEBULIZR NON-DISPB L O2 CONC 1 E1390 [facility] [place] 6 HOME HOME 85%/>02 MEDICAL MEDICAL CONC AT EQUIPME EQUIPME PRSC FLW RATE O2 CONC 1 E1390 [facility] [place] 6 HOME HOME 85%/>02 MEDICAL MEDICAL CONC AT EQUIPME EQUIPME PRSC FLW RATE O2 CONC 1 E1390 [facility] [place] 6 HOME HOME 85%/>02 MEDICAL MEDICAL CONC AT EQUIPME EQUIPME PRSC FLW RATE PRTBLE E0431 [facility] NEW GASEOUS 6 HOME HOME O2 SYS MEDICAL MEDICAL RENT; EQUIPME EQUIPME FLWMTR HUMIDFR&M ASK O2 CONC 1 E1390 [facility] [place] 6 HOME HOME 85%/>02 MEDICAL MEDICAL CONC AT EQUIPME EQUIPME PRSC FLW RATE PRTBLE E0431 [facility] NEW GASEOUS 6 HOME HOME O2 SYS MEDICAL MEDICAL RENT; EQUIPME EQUIPME FLWMTR HUMIDFR&M ASK O2 CONC 1 E1390 [facility] [place] 6 HOME HOME 85%/>02 MEDICAL MEDICAL CONC AT EQUIPME EQUIPME PRSC FLW RATE PRTBLE E0431 [facility] NEW GASEOUS 6 HOME HOME O2 SYS MEDICAL MEDICAL RENT; EQUIPME EQUIPME FLWMTR HUMIDFR&M ASK O2 CONC 1 E1390 [facility] [place] 6 HOME HOME 85%/>02 MEDICAL MEDICAL CONC AT EQUIPME EQUIPME PRSC FLW RATE PRTBLE E0431 [facility] NEW GASEOUS 6 HOME HOME O2 SYS MEDICAL MEDICAL RENT; EQUIPME EQUIPME FLWMTR HUMIDFR&M ASK O2 CONC 1 E1390 [facility] [place] 6 HOME HOME 85%/>02 MEDICAL MEDICAL CONC AT EQUIPME EQUIPME PRSC FLW RATE PRTBLE E0431 [facility] NEW GASEOUS 6 HOME HOME O2 SYS MEDICAL MEDICAL RENT; EQUIPME EQUIPME FLWMTR HUMIDFR&M ASK O2 CONC 1 E1390 [facility] [place] 5 HOME HOME 85%/>02 MEDICAL MEDICAL CONC AT EQUIPME EQUIPME PRSC FLW RATE PRTBLE E0431 [facility] NEW GASEOUS 5 HOME HOME O2 SYS MEDICAL MEDICAL RENT; EQUIPME EQUIPME FLWMTR HUMIDFR&M ASK O2 CONC 1 E1390 [facility] [place] 5 HOME HOME 85%/>02 MEDICAL MEDICAL CONC AT EQUIPME EQUIPME PRSC FLW RATE PRTBLE E0431 [facility] NEW GASEOUS 5 HOME HOME O2 SYS MEDICAL MEDICAL RENT; EQUIPME EQUIPME FLWMTR HUMIDFR&M ASK O2 CONC 1 E1390 [facility] [place] 5 HOME HOME 85%/>02 MEDICAL MEDICAL CONC AT EQUIPME EQUIPME PRSC FLW RATE PRTBLE E0431 [facility] NEW GASEOUS 5 HOME HOME O2 SYS MEDICAL MEDICAL RENT; EQUIPME EQUIPME FLWMTR HUMIDFR&M ASK ADMN SET A7005 YOUR YOUR W/SM VOL 5 PHARMACY [facility]-DISPB L TUBING A7037 [facility] NEW USED WITH 5 HOME HOME POSITIVE MEDICAL MEDICAL AIRWAY EQUIPME EQUIPME PRESSURE DEVICE FILTER A7038 SHAQ SHAQ DISPBL 5 HOME HOME USED MEDICAL MEDICAL W/POS EQUIPME EQUIPME ARWAY PRESSURE DEVICE CUSHN A7032 [facility] NEW NASAL 5 HOME HOME MASK MEDICAL MEDICAL INTERFACE EQUIPME EQUIPME REPLACEME NT ONLY EACH O2 CONC 1 E1390 [facility] RODRIGUEZ 5 HOME HOME 85%/>02 MEDICAL MEDICAL CONC AT EQUIPME EQUIPME PRSC FLW RATE PRTBLE E0431 [facility] NEW GASEOUS 5 HOME HOME O2 SYS MEDICAL MEDICAL RENT; EQUIPME EQUIPME FLWMTR HUMIDFR&M ASK O2 CONC 1 E1390 SHAQ RODRIGUEZ 5 HOME HOME 85%/>02 MEDICAL MEDICAL CONC AT EQUIPME EQUIPME PRSC FLW RATE PRTBLE E0431 [facility] NEW GASEOUS 5 HOME HOME O2 SYS MEDICAL MEDICAL RENT; EQUIPME EQUIPME FLWMTR HUMIDFR&M ASK O2 CONC 1 E1390 [facility] RODRIGUEZ 5 HOME HOME 85%/>02 MEDICAL MEDICAL CONC AT EQUIPME EQUIPME PRSC FLW RATE PRTBLE E0431 [facility] NEW GASEOUS 5 HOME HOME O2 SYS MEDICAL MEDICAL RENT; EQUIPME EQUIPME FLWMTR HUMIDFR&M ASK O2 CONC 1 E1390 SH[facility] RODRIGUEZ 5 HOME HOME 85%/>02 MEDICAL MEDICAL CONC AT EQUIPME EQUIPME PRSC FLW RATE PRTBLE E0431 [facility] NEW GASEOUS 5 HOME HOME O2 SYS MEDICAL MEDICAL RENT; EQUIPME EQUIPME FLWMTR HUMIDFR&M ASK RADIOLOGI 35303 MONTERROSO MONTERROSO C 5 JOSS JOSS EXAMINATI ON CHEST SING[place] VIEW FRONTAL ECG 37058 MONTERROSO MONTERROSO ROUTINE 5 JOSS JOSS ECG W/LEAST 12 LDS I&R ONLY O2 CONC 1 E1390 [facility] RODRIGUEZ 5 HOME HOME 85%/>02 MEDICAL MEDICAL CONC AT EQUIPME EQUIPME PRSC FLW RATE ECG 00349 [facility] NAEL ROUTINE 5 [facility] [place] ECG MEDICAL W/LEAST G 12 LDS I&[place] [address] [facility] [place] KOSTELIC ANGIOGRAP 5 RADIOLOGY [place] HY CHEST W/CONTRAS T/NONCONT RAST RADIOLOGI 92158 [facility] [place]OST[place]IC C 5 RADIOLOGY [place] EXAMINATI ON CHEST SING[place] VIEW FRONTAL INITIAL 90996 [facility] 5 [place] [facility]/DAY MEDICAL [address] ANGIO 26656 [facility] [place] MAY[place] ABD&PLVIS 5 RADIOLOGY GUTIERREZ CNTRST MTRL W/[place] [address] [facility] [place] ANGIOGRAP 5 RADIOLOGY GUTIERREZ HY CHEST W/CONTRAS T/NONCONT RAST RADIOLOGI 31100 [facility] [place] SIMEON C 5 RADIOLOGY ISHMAEL EXAMINATI ON CHEST SING[place]IEW FRONTAL RADIOLOGI 19339 [facility] [place] SIMEON C 5 RADIOLOGY ISHMAEL EXAMINATI ON CHEST SING[place] FRONTAL ANES HRT [address] PERICRD 5 A SAC&GRT ASSOCIATE VSLS S PSC W/MANUFACTURING MAINTENANCE MECHANIC OXTJ >1MO PO SPCL STN 79937 KAHLIL PICHARDO 2 I&R 5 [facility] EXCPT CLINIC MICROORG/ PSC ENZYME/IM CYT DOPPLER [address] ECHOCARD 5 A PULSE ASSOCIATE WAVE S PSC W/SPECTRA L DISPLAY ASCENDING 99432 EM IV EM IV AORTA 5 OLY OLY GRF W/CARD BYP & VALVE SSP ECHO [address] TRANSESOP 5 A HAG R-T ASSOCIATE 2D W/PRB S PSC IMG ACQUISJ I&R DOP [address] ECHOCARD 5 A COLOR ASSOCIATE FLOW [place] [address] KAHLIL PICHARDO SURG 5 [facility] PATHOLOGY CLINIC PSC GROSS&MANJIT ROSCOPIC EXAM INITIAL 61244 EM IV EM IV INPATIENT 5 OLY OLY CONSULT NEW/ESTAB PT [address] ANGIO [address]168 [place] AYOOB AND ABD&PLVIS 5 MEDICAL CNTRST SERV MTRL W/[place] [address] [place] AYOO[place] AND ANGIOGRAP 5 MEDICAL HY CHEST SERV W/CONTRAS FOUNDATIO T/NONCONT N RAST O2 CONC 1 E1390 [facility] [place] 5 HOME HOME 85%/>02 MEDICAL MEDICAL CONC AT EQUIPME EQUIPME PRS FLW RATE O2 CONC 1 E1390 [facility] [place] 5 HOME HOME 85%/>02 MEDICAL MEDICAL CONC AT EQUIPME EQUIPME PRSC FLW RATE O2 CONC 1 E1390 [facility] [place] 5 HOME HOME 85%/>02 MEDICAL MEDICAL CONC AT EQUIPME EQUIPME PRS FLW RATE BLOOD 39963 LANDEN SCHUSTER COUNT 5 [facility] COMPLETE INC INC AUTO&[place] [address] LANDEN SCHUSTER FREE 5 [facility] [place] [address] LANDEN SCHUSTER GAMMAGLOB 5 [facility] ULIN IGE INC INC PRESSURIZ 44069 FERMÍN FERMÍN ED/NONPRE 5 ALTHEA ALTHEA SSURIZED INHALATIO N TREATMENT PERCUTANE 02728 FERMÍN FERMÍN OUS TESTS 5 ALTHEA ALTHEA W/ALLERGE PHYLICIA EXTRACTS BRNCDILAT 09628 FERMÍN FERMÍN RSPSE 5 ALTHEA ALTHEA SPMTRY PRE&[place] [address] LANDEN SCHUSTER THYROID 5 [facility] STIMULATI INC INC NG HORMONE TSH 25 93831 LANDEN SCHUSTER HYDROXY 5 [facility] INCLUDES INC INC FRACTIONS IF PERFORMED CYANOCOBA 83953 LANDEN SCHUSTER JOSE RAFAEL 5 [facility] VITAMIN INC INC B-12 HEADGEAR A7035 SH[facility] NEW USED 5 HOME HOME W/POSITIV MEDICAL MEDICAL E AIRWAY EQUIPME EQUIPME PRESSURE DEVICE SEDIMENTA 98779 LANDEN SCHUSTER TION RATE 5 [facility] RBC INC INC NON-AUTOM ATED ADMN SET A7005 YOUR YOUR W/SM VOL 5 PHARMACY PHARMACY [facility] NEBULIZR NON-DISPB L FULL FACE A7030 SH[facility] NEW MASK 5 HOME HOME USED MEDICAL MEDICAL W/POS EQUIPME EQUIPME ARWAY PRESS DEVICE EA C-REACTIV 98081 LANDEN LANDEN E PROTEIN 5 [facility] INC INC ANTIBODY 71074 LANDEN SCHUSTER DIPHTHERI 5 [facility] A INC INC ANTIBODY 20676 LANDEN SCHUSTER TETANUS 5 [facility] INC INC RADIOLOGI 65352 LANDEN SCHUSTER C EXAM 5 [facility] CHEST 2 INC INC VIEWS FRONTAL&L ATERAL ANTIBODY 13108 LANDEN SCHUSTER BACTERIUM 5 [facility] NOT INC INC ELSEWHERE SPECIFIED ANTIBODY 36025 LANDEN SCHUSTER RUBELLA 5 [facility] INC INC HEMAGGLUT 56677 LANDEN SCHUSTER INATION 5 [facility] INHIBITIO INC INC N TEST ERICKA CULTURE 29231 LANDEN SCHUSTER FNGI 5 [facility] MOLD/YEAS INC INC T PRSMPTV OTH XCPT BLOOD COMPLEMEN 04674 LANDEN SCHUSTER T TOTAL 5 [facility] HEMOLYTIC INC INC CUL BACT 06266 LANDEN SCHUSTER XCPT 5 [facility] URINE INC INC BLOOD/STO OL AEROBIC ISOL GAMMAGLOB 70958 LANDEN SCHUSTER ULIN 5 [facility] IMMUNOGLO INC INC BULIN SUBCLASSE S NITRIC 34261 FERMÍN FERMÍN OXIDE 5 [place] GAS DETERMINA TION COMPREHEN 14133 LANDEN SCHUSTER SIVE 5 [facility] METABOLIC INC INC PANEL COLLECTIO 21334 LANDEN LANDEN N VENOUS 5 [facility] BLOOD INC INC VENIPUNCT URE SMR PRIM 91890 LANDEN SCHUSTER SRC 5 [facility] GRAM/GIEM INC INC SA STAIN BCT FUNGI/ELPIDIO L TUBING A7037 [facility] NEW USED WITH 5 HOME HOME POSITIVE MEDICAL MEDICAL AIRWAY EQUIPME EQUIPME PRESSURE DEVICE O2 CONC 1 E1390 [facility] [place] 4 HOME HOME 85%/>02 MEDICAL MEDICAL CONC AT EQUIPME EQUIPME PRSC FLW RATE O2 CONC 1 E1390 [facility] [place] 4 HOME HOME 85%/>02 MEDICAL MEDICAL CONC AT EQUIPME EQUIPME PRSC FLW RATE O2 CONC 1 E1390 [facility] [place] 4 HOME HOME 85%/>02 MEDICAL MEDICAL CONC AT EQUIPME EQUIPME PRS FLW RATE BRNCDILAT 38819 FERMÍN FERMÍN RSPSE 4 [place] SPMTRY PRE&POST- BRNCDILAT ADMN PRESSURIZ 19424 FERMÍN FERMÍN ED/NONPRE 4 [place] SSURIZED INHALATIO N TREATMENT O2 CONC 1 E1390 SHAQANTHONY ORDONEZRELL DEL PORT 4 HOME HOME 85%/>02 MEDICAL MEDICAL CONC AT EQUIPME EQUIPME PRSC FLW RATE O2 CONC 1 E1390 SHAQANTHONY ORDONEZRELL DEL PORT 4 HOME HOME 85%/>02 MEDICAL MEDICAL CONC AT EQUIPME EQUIPME PRSC FLW RATE O2 CONC 1 E1390 SHAQ SHAQ [place] 4 HOME HOME 85%/>02 MEDICAL MEDICAL CONC AT EQUIPME EQUIPME PRSC FLW RATE O2 CONC 1 E1390 [facility] [place] 4 HOME HOME 85%/>02 MEDICAL MEDICAL CONC AT EQUIPME EQUIPME PRSC FLW RATE O2 CONC 1 E1390 SHAQANTHONY ORDONEZRELL DEL PORT 4 HOME HOME 85%/>02 MEDICAL MEDICAL CONC AT EQUIPME EQUIPME PRSC FLW RATE CYSTO 97869 [facility] SMITH W/SIMPLE 4 [place] LIZZY REMOVAL ADULT & STONE & PED STENT ECG 98109 PEDRO RICHEY RICHEY PEDRO ROUTINE 4 MD ECG CONSULTIN W/LEAST G SRV 12 LDS I&R ONLY O2 CONC 1 E1390 [facility] [place] 4 HOME HOME 85%/>02 MEDICAL MEDICAL CONC AT EQUIPME EQUIPME PRSC FLW RATE DILATION 66233 [facility]OSTO [facility] MY/URETER ADULT & /URETHRA PED RS&I CYSTO 72976 [facility] SM[facility] W/URETERO 4 [place] LIZZY SCOPY ADULT & W/LITHOTR PED IPSY CYSTO 40652 [facility] W/INSERT [facility] URETERAL ADULT & STENT PED ANES 44277 [place] JOINER CHAVEZ TRURL 4 ANESTHESI FRAGMNTJ A GROUP MANJ&/RMV PS L URETERAL CALCULUS RADIOLOGI 04468 LANDEN SCHUSTER C EXAM 4 [facility] CHEST 2 INC INC VIEWS FRONTAL&L ATERAL C-REACTIV 18685 LANDEN SCHUSTER E PROTEIN 4 [facility] INC INC CYANOCOBA 60028 LANDEN SCHUSTER JOSE RAFAEL 4 [facility] VITAMIN INC INC B-12 25 93578 LANDEN SCHUSTER HYDROXY 4 [facility] INCLUDES INC INC FRACTIONS IF PERFORMED SEDIMENTA 11964 LANDEN SCHUSTER TION RATE 4 [facility] RBC INC INC NON-AUTOM ATED COMPREHEN 17338 LANDEN SCHUSTER SIVE 4 [facility] METABOLIC INC INC PANEL GAMMAGLOB 65898 LANDEN SCHUSTER ULIN 4 [facility] IMMUNOGLO INC INC BULIN SUBCLASSE S ANTIBODY 32037 LANDEN SCHUSTER BACTERIUM 4 [facility] [place] [address] LANDEN SCHUSTER GAMMAGLOB 4 [facility] [place] [address] LANDEN SCHUSTER FREE 4 [facility] [place] [address] LANDEN SCHUSTER THYROID 4 [facility] STIMULATI INC INC NG HORMONE TSH BLOOD 87680 LANDEN SCHUSTER COUNT 4 [facility] COMPLETE INC INC AUTO&AUTO DIFRNTL WBC PRESSURIZ 41221 FERMÍN FERMÍN ED/NONPRE 4 [place] SSURIZED INHALATIO N TREATMENT BRNCDILAT 56500 FERMÍN FERMÍN RSPSE 4 [place] SPMTRY PRE&POST- BRNCDILAT ADMN O2 CONC 1 E1390 [facility] NEW GABRIELA PORT 4 HOME HOME 85%/>02 MEDICAL MEDICAL CONC AT EQUIPME EQUIPME PRS FLW RATE O2 CONC 1 E1390 [facility] NEW DEL PORT 3 HOME HOME 85%/>02 MEDICAL MEDICAL CONC AT EQUIPME EQUIPME PRS FLW RATE O2 CONC 1 E1390 [facility] NEW COUNT INCLUDES [facility] PORT 3 HOME HOME 85%/>02 MEDICAL MEDICAL CONC AT EQUIPME EQUIPME PRSC FLW RATE O2 CONC 1 E1390 [facility] [place] 3 HOME HOME 85%/>02 MEDICAL MEDICAL CONC AT EQUIPME EQUIPME PRSC FLW RATE HEADGEAR A7035 [facility] NEW USED 3 HOME HOME W/POSITIV MEDICAL MEDICAL E AIRWAY EQUIPME EQUIPME PRESSURE DEVICE FULL FACE A7030 SHAQ NEW MASK 3 HOME HOME USED MEDICAL MEDICAL W/POS EQUIPME EQUIPME ARWAY PRESS DEVICE EA TUBING A7037 [facility] NEW USED WITH 3 HOME HOME POSITIVE MEDICAL MEDICAL AIRWAY EQUIPME EQUIPME PRESSURE DEVICE O2 CONC 1 E1390 [facility] [place] 3 [place] HOME 85%/>02 MEDICAL MEDICAL CONC AT EQUIPME EQUIPME PRSC FLW RATE O2 CONC 1 E1390 [facility] [place] HOME 85%/>02 MEDICAL MEDICAL CONC AT EQUIPME EQUIPME PRSC FLW RATE O2 CONC 1 E1390 [facility] [place] HOME 85%/>02 MEDICAL MEDICAL CONC AT EQUIPME EQUIPME PRSC FLW RATE O2 CONC 1 E1390 [facility] [place] HOME 85%/>02 MEDICAL MEDICAL CONC AT EQUIPME EQUIPME PRSC FLW RATE ADMN SET A7005 YOUR YOUR W/SM VOL 3 PHARMACY [facility] NE[facility]UL[facility] NON-DISPB L PRESSURIZ 36390 FERMÍN FERMÍN ED/NONPRE 3 ALTHEA ALTHEA SSURIZED INHALATIO N TREATMENT BRNCDILAT 35009 FERMÍN FERMÍN RSPSE 3 ALTHEA [place] SPMTRY PRE&POST- BRNCDILAT ADMN O2 CONC 1 E1390 [facility] [place] HOME HOME 85%/>02 MEDICAL MEDICAL CONC AT EQUIPME EQUIPME PRSC FLW RATE O2 CONC 1 E1390 [facility] [place] HOME HOME 85%/>02 MEDICAL MEDICAL CONC AT EQUIPME EQUIPME PRSC FLW RATE O2 CONC 1 E1390 [facility] [place] HOME 85%/>02 MEDICAL MEDICAL CONC AT EQUIPME EQUIPME PRSC FLW RATE CUSHN A7032 [facility] NEW NASAL 3 HOME HOME MASK MEDICAL MEDICAL INTERFACE EQUIPME EQUIPME REPLACEME NT ONLY EACH ANES [address] [facility] X[facility]PRTL 3 ANESTHESI AN LOWER ABD A GROUP UR TRACT PS RENAL DON NFRCT INJECTION J1100 [facility] 3 N N DEXAMETHO [facility] SONE HOSPITA HOSPITA SODIUM PHOSPHATE 1 MG INJECTION J2001 [facility] 3 N N LIDOCAINE [facility] HCL HOSPITA HOSPITA INTRAVENO US INFUS 10 MG INJECTION J2710 [facility] 3 N N NEOSTIGMI [facility] NE HOSPITA HOSPITA METHYLSUL FATE UP TO 0.5 MG INJECTION J3010 [facility] FENTANYL 3 N N CITRATE [facility] 0.1 MG HOSPITA HOSPITA INJECTION J1580 [facility] 3 N N GARAMYCIN [facility] HOSPITA HOSPITA GENTAMICI N UP TO 80 MG INJECTION J2370 [facility] 3 N N PHENYLEPH [facility] RINE HCL HOSPITA HOSPITA UP TO 1 ML INJECTION J2405 [facility] 3 N N ONDANSETR [facility] ON HCL HOSPITA HOSPITA PER 1 MG PYELOPLAS 82456 [facility] TY SIMPLE 3 N N [facility] HOSPITA HOSPITA LAPAROSCO [address] [facility] PY 3 [place] LIZZY RADICAL ADULT & NEPHRECTO PED MY ECG 63123 [facility] ROUTINE 3 N N ECG [facility] W/LEAST HOSPITA HOSPITA 12 LDS TRCG ONLY W/O I&R COLLECTIO 11927 [facility] N VENOUS 3 N N BLOOD [facility] VENIPUNCT HOSPITA HOSPITA URE COMPREHEN 90126 [facility] SIVE 3 N N METABOLIC [facility] PANEL HOSPITA HOSPITA URNLS DIP 42377 [facility] 3 N N STICK/TAB [facility] LET HOSPITA HOSPITA REAGENT AUTO MICROSCOP Y BLOOD [id number] [place] [address] COUNT 3 N N COMPLETE [facility] AUTO&AUTO [place] [address] [facility] INFUSION 3 [facility] THERAPY/P INC INC ROPHYLAXI S /DX 1ST TO 1 HR EGD 30056 [facility] TRANSORAL 3 [facility] BIOPSY INC INC SINGLE/MU LTIPLE URINE 92153 [facility] TEST INC INC VISUAL COLOR CMPRSN METHS ANES 90169 [facility] UPPER GI 3 ANESTH ENDOSCOPY OF THE PROXIMAL BLUE TO DUODENUM SPECIAL 25378 PATHOLOGY CRISTINA STAIN 3 & OLY GROUP 1 CYTOLOGY MICROORGA LAB NISDC [place] 495[address] [facility]ION 3 [facility] THERAPY INC INC PROPHYLAX IS/[place] [address] PATHOLOGY CRISTINA SURG 3 & OLY PATHOLOGY CYTOLOGY LAB GROSS&MANJIT ROSCOPIC EXAM O2 CONC 1 E1390 [facility] [place] 3 HOME HOME 85%/>02 MEDICAL MEDICAL CONC AT EQUIPME EQUIPME PRSC FLW RATE DSTR 16961 ERICA VASCELLO NROLYTC 3 VASCELLO ALONDRA NANO AGEE [facility] PARVERTEB FCT ADDL CRVCL/THO RA DSTR 68899 ERICA VASCELLO NROLYTC 3 VASCELLO ALONDRA NANO AGEE [facility] PARVERTEB FCT SNGL CRVCL/THO RA MODERATE 68034 ERICA VASCELLO SEDATJ 3 VASCELLO ALONDRA SOULEYMANE AGEE PSC PHYS/QHP 5/>YRS INIT 30 MIN SPMTRY 52618 FERMÍN FERMÍN W/VC 3 ALTHEA ALTHEA EXPIRATOR Y ANA MARIA W/WO MXML VOL VNTJ BOTULINUM J0585 RESTORATIONIST JONEL TOXIN 3 NEUROLOGY RAFAEL TYPE A CENTER PER UNIT BRIANNA CHEMODERV 74703 RESTORATIONIST JONEL ATE 3 NEUROLOGY RAFAEL FACIAL/TR CENTER IGEM/CERV BRIANNA MUSC MIGRAINE O2 CONC 1 E1390 [facility] [place] 3 HOME HOME 85%/>02 MEDICAL MEDICAL CONC AT EQUIPME EQUIPME [facility] FLW RATE MODERATE 81627 ERICA VASCELLO SEDATJ 3 VASCELLO ALONDRA SAME PSC PHYS/QHP 5/>YRS INIT 30 MIN NJX 07560 ERICA VASCELLO DX/THER 3 VASCELLO ALONDRA AGT PVRT PSC FACET JT CRV/THRC 2ND LEVEL NJX 93305 ERICA VASCELLO DX/THER 3 VASCELLO ALONDRA AGT PVRT PSC FACET JT CRV/THRC 1 LEVEL O2 CONC 1 E1390 [facility] [place] 2 HOME HOME 85%/>02 MEDICAL MEDICAL CONC AT EQUIPME EQUIPME [facility] FLW RATE O2 CONC 1 E1390 [facility] [place] 2 HOME HOME 85%/>02 MEDICAL MEDICAL CONC AT EQUIPME EQUIPME [facility] FLW RATE HEADGEAR A7035 [facility] NEW USED 2 HOME HOME W/POSITIV MEDICAL MEDICAL E AIRWAY EQUIPME EQUIPME PRESSURE DEVICE ELECTRICA A4595 J & L J & L L 2 HOME HOME STIMULATO MEDICAL MEDICAL R EQUIPMENT EQUIPMENT SUPPLIES 2 LEAD PER MONTH FULL FACE A7030 [facility] NEW MASK 2 HOME HOME USED MEDICAL MEDICAL W/POS EQUIPME EQUIPME ARWAY PRESS DEVICE EA PRESSURIZ 58261 FERMÍN FERMÍN ED/NONPRE 2 ALTHEA ALTHEA SSURIZED INHALATIO N TREATMENT BRNCDILAT 06106 FERMÍN FERMÍN RSPSE 2 ALTHEA ALTHEA SPMTRY PRE&POST- BRNCDILAT ADMN BOTULINUM J0585 RESTORATIONIST JONEL TOXIN 2 NEUROLOGY RAFAEL TYPE A CENTER PER UNIT BRIANNA O2 CONC 1 E1390 [facility] [place] 2 HOME HOME 85%/>02 MEDICAL MEDICAL CONC AT EQUIPME EQUIPME [facility] FLW RATE IMMUNOASS 29902 [facility] AY 2 DIAGNOSTI DIAGNOSTI ANALYTE [employer]ANNER, INC. QUANTITAT JADON NOS C-REACTIV 75982 [facility] E PROTEIN 2 DIAGNOSTI DIAGNOSTI BANNER CREATINE 34279 [facility] KINASE 2 DIAGNOSTI DIAGNOSTI TOTAL CS CS COLLECTIO 89829 [facility]ST N VENOUS 2 DIAGNOSTI DIAGNOSTI BLOOD CS CS VENIPUNCT URE SEDIMENTA 96141 [facility] TION RATE 2 DIAGNOSTI DIAGNOSTI RBC CS CS AUTOMATED CYCLIC 57770 [facility] CITRULLIN 2 DIAGNOSTI DIAGNOSTI ATED CS CS PEPTIDE ANTIBODY GAMMAGLOB 95204 LANDEN SCHUSTER ULIN 2 [facility] IMMUNOGLO INC INC BULIN SUBCLASSE S 25 46859 LANDEN LANDEN HYDROXY 2 [facility] INCLUDES INC INC FRACTIONS IF PERFORMED RADIOLOGI 47881 LANDEN SCHUSTER C EXAM 2 [facility] CHEST 2 INC INC VIEWS FRONTAL&[place] [address] LANDEN LANDEN GAMMAGLOB 2 [facility] ULIN IGA [place] [address] LANDEN LANDEN GAMMAGLOB 2 [facility] [place] [address] LANDEN LANDEN THYROID 2 [facility] STIMULATI INC INC NG HORMONE TSH BLOOD 84382 LANDEN SCHUSTER COUNT 2 [facility] COMPLETE INC INC AUTO&AUTO DIFRNTL WBC BRNCDILAT 62991 FERMÍN FERMÍN RSPSE 2 ALTHEA [place] SPMTRY PRE&POST- BRNCDILAT ADMN PRESSURIZ 66031 FERMÍN FERMÍN ED/NONPRE 2 ALTHEA [place] SSURIZED INHALATIO N TREATMENT ADMN SET A7005 [place] [facility] [place] [facility] W/SM VOL 2 EQUIPMENT EQUIPMENT NONFILTR INC INC NEBULIZR NON-DISPB L NEBULIZER E0570 [place] [facility] [place] MED WITH 2 EQUIPMENT EQUIPMENT COMPRESSO INC INC R DEMO&/GABI 98505 FERMÍN FERMÍN L OF PT 2 ALTHEA [place] UTILIZ AERSL GEN/NEB/I NHLR/IP INJECTION 02647 ERICA VASCELLO 2 VASCELLO ALONDRA SINGLE/ML MD SCHWARTZ T TRIGGER POINT 3/> MUSCLES FLUOROSCO 62344 ERICA VASCELLO PIC 2 VASCELLO ALONDRA GUIDANCE MD PSC NEEDLE PLACEMENT ADD ON IIV3 14869 LANDEN SCHUSTER VACCINE [address] [facility] VIRUS 0.5 ML DOSAGE IM USE [facility]ROGRAPHY 27291 [facility] IV W/WO 2 MEDICAL BELINDA KUB W/WO IMAGING TOMOGRAPH ASS Y CREATININ 18227 LANDEN SCHUSTER E BLOOD 2 [facility] [place] [address] LANDEN SCHUSTER UREA 2 [facility] NITROGEN INC INC QUANTITAT JADON CONTINUOU E0601 SH[facility] NEW S 2 HOME HOME POSITIVE MEDICAL MEDICAL AIRWAY EQUIPME EQUIPME PRESSURE DEVICE CYSTO 28051 [facility] W/SIMPLE 2 [place] LIZZY REMOVAL ADULT & STONE & PED STENT CYSTO 08839 [facility] W/URETERO 2 [place] LIZZY SCOPY ADULT & W/RMVL/MA PED [place] STONES LEVEL III 09781 PATHOLOGY SALAZAR VAN SURG 2 & PATHOLOGY CYTOLOGY LAB GROSS&MANJIT ROSCOPIC EXAM CYSTO 27127 [facility] W/INSERT 2 [facility] URETERAL ADULT & STENT PED ANES 54571 [place] AWAD TRURL 2 ANESTHESI AN FRAGMNTJ A GROUP MANJ&/RMV PS L URETERAL CALCULUS DILATION 00710 [facility] NEPHROSTO 2 [facility] LIZZY MY/URETER ADULT & /URETHRA PED RS&I ANES 52354 [place] VANESSA MEDHAT LITHOTRP 2 ANESTHESI XTRCORP A GROUP SHOCK PS WAVE W/O WATER BATH FLUOROSCO 61789 [facility] PY SPX UP 2 [facility] LIZZY TO 1 ADULT & HOUR PED PHYS/QHP TIME ECG 15584 PEDRO RICHEY RICHEY PEDRO ROUTINE 2 MD ECG CONSULTIN W/LEAST G SERV 12 LDS I&R ONLY CYSTO 37861 [facility] W/INSERT 2 [facility] BALL URETERAL ADULT & STENT PED RADEX 80067 [facility] [place] SCALF OLY ABDOMEN 1 2 RADIOLOGY ANTEROPOS TERIOR VIEW LITHOTRIP 35195 [facility] SY 2 [place] LIZZY XTRCORP ADULT & SHOCK PED WAVE URNLS DIP 22114 [facility]EN L[facility]EN 2 [facility] STICK/TAB INC INC LET REAGENT AUTO MICROSCOP Y URINE 32849 LANDEN SCHUSTER 2 [facility] TEST INC INC VISUAL COLOR CMPRSN METHS BLOOD 78337 LANDEN SCHUSTER COUNT 2 [facility] COMPLETE INC INC AUTO&AUTO DIFRNTL WBC CONTINUOU E0601 [facility] NEW S 2 HOME HOME POSITIVE MEDICAL MEDICAL AIRWAY EQUIPME EQUIPME PRESSURE DEVICE BLOOD 08620 LANDEN SCHUSTER COUNT 2 [facility] COMPLETE INC INC AUTO&[place] [address] LANDEN SCHUSTER AMYLASE 2 [facility] INC INC THERAPEUT 69924 LANDEN SCHUSTER IC 2 [facility] INJECTION INC INC IV PUSH EACH NEW DRUG URINE 61064 LANDEN SCHUSTER 2 [facility] TEST INC INC VISUAL COLOR CMPRSN METHS AMB A0427 [facility] SERVICE 2 AMBULANCE AMBULANCE ALS SERVICE SERVICE EMERGENCY TRANSPORT LEVEL 1 CULTURE 38059 LANDEN SCHUSTER BACTERIAL 2 [facility] INC INC QUANTTATI VE COLONY COUNT URINE CULTURE 19664 LANDEN SCHUSTER BCT 2 [facility] ISOL&PRSM INC INC PTV ID ISOLATE EA URINE URNLS DIP 21103 LANDEN SCHUSTER 2 [facility] STICK/TAB INC INC LET REAGENT AUTO MICROSCOP Y SUSCEPTIB 09846 LANDEN SCHUSTER LTY STDY 2 [facility] ANTIMICRB INC INC IAL MICRO/AGA R DILUTJ GROUND A0425 [facility] MILEAGE 2 AMBULANCE AMBULANCE PER SERVICE SERVICE STATUTE MILE 3D 01621 LANDEN SCHUSTER RENDERING 2 [facility] INC INC W/INTERP& POSTPROC DIFF WORK STATION COMPREHEN 65914 LANDEN SCHUSTER SIVE 2 [facility] [place] [address] LANDEN SCHUSTER ABDOMEN & 2 [facility] PELVIS INC INC W/O CONTRAST MATERIAL THER 32994 LANDEN SCHUSTER PROPH/DX 2 [facility] NJX IV INC INC PUSH SINGLE/1S T SBST/[place] [address] LANDEN SCHUSTER LIPASE 2 [facility] INC INC CONTINUOU E0601 [facility] NEW S 2 HOME HOME POSITIVE MEDICAL MEDICAL AIRWAY EQUIPME EQUIPME PRESSURE DEVICE FILTER A7038 [facility] NEW DISPBL 2 HOME HOME USED MEDICAL MEDICAL W/POS EQUIPME EQUIPME ARWAY PRESSURE DEVICE TUBING A7037 [facility] NEW USED WITH 2 HOME HOME POSITIVE MEDICAL MEDICAL AIRWAY EQUIPME EQUIPME PRESSURE DEVICE CONTINUOU E0601 SH[facility] NEW S 2 HOME HOME POSITIVE MEDICAL MEDICAL AIRWAY EQUIPME EQUIPME PRESSURE DEVICE CONTINUOU E0601 [facility] NEW S 2 HOME HOME POSITIVE MEDICAL MEDICAL AIRWAY EQUIPME EQUIPME PRESSURE DEVICE DSTR 88890 ERICA ERICA NROLYTC 2 VASCELLO VASCELLO AGNT [facility] PSC PARVERTEB FCT ADDL CRVCL/THO RA DSTR 93894 ERICA ERICA NROLYTC 2 VASCELLO VASCELLO AGNT MD EFREN AGEE PSC PARVERTEB FCT SNGL CRVCL/THO RA CONTINUOU E0601 [facility] NEW S 2 HOME HOME POSITIVE MEDICAL MEDICAL AIRWAY EQUIPME EQUIPME PRESSURE DEVICE NJX 76141 ERICA ERICA DX/THER 2 VASCELLO VASCELLO AGT PVRT [facility] PSC FACET JT CRV/THRC 2ND LEVEL NJX 97980 ERICA ERICA DX/THER 2 VASCELLO VASCELLO AGT PVRT MD EFREN AGEE PSC FACET JT CRV/THRC 1 LEVEL CONTINUOU E0601 SH[facility] NEW S 2 HOME HOME POSITIVE MEDICAL MEDICAL AIRWAY EQUIPME EQUIPME PRESSURE DEVICE NJX 96196 ERICA ERICA DX/THER 2 VASCELLO VASCELLO AGT PVRT MD EFREN AGEE PSC FACET JT CRV/THRC 1 LEVEL NJX 05866 ERICA ERICA DX/THER 2 VASCELLO VASCELLO AGT PVRT MD EFREN AGEE PSC FACET JT CRV/THRC 2ND LEVEL CUSHN A7032 SH[facility] NEW NASAL 2 HOME HOME MASK MEDICAL MEDICAL INTERFACE EQUIPME EQUIPME REPLACEME NT ONLY EACH DSTR 55604 ERICA EIRCA NROLYTC 2 VASCELLO VASCELLO NANO SCHWARTZ PARVERTEB FCT ADDL LMBR/SACR AL DSTR 91096 ERICA ERICA NROLYTC 2 VASCELLO VASCELLO NANO SCHWARTZ MD [facility] PARVERTEB FCT SNGL LMBR/SACR AL MODERATE 00200 ERICA ERICA SEDATJ 2 VASCELLO VASCELLO SOULEYMANE SCHWARTZ MD [facility] PHYS/QHP 5/>YRS INIT 30 MIN CONTINUOU E0601 [facility] NEW S 2 HOME HOME POSITIVE MEDICAL MEDICAL AIRWAY EQUIPME EQUIPME PRESSURE DEVICE DSTR 14541 ERICA ERICA NROLYTC 2 VASCELLO VASCELLO NANO SCHWARTZ MD [facility] PARVERTEB FCT SNGL LMBR/SACR AL DSTR 65335 ERICA ERICA NROLYTC 2 VASCELLO VASCELLO NANO SCHWARTZ MD [facility] PARVERTEB FCT ADDL LMBR/SACR AL BASIC 45536 LANDEN CSHUSTER METABOLIC 2 [facility] PANEL INC INC CALCIUM TOTAL RADIOLOGI 72249 [facility] 2 MEDICAL MEDICAL EXAMINATI IMAGING IMAGING ON CHEST ASS ASS SINGLE VIEW FRONTAL CREATINE 48075 LANDEN MCKEONON KINASE 2 [facility] [place] [address] LANDEN SCHUSTER TROPONIN 2 [facility] QUANTITAT INC INC JADON BLOOD 26866 LANDEN SCHUSTER COUNT 2 [facility] COMPLETE INC INC AUTO&AUTO DIFRNTL WBC CREATINE 81528 LANDEN SCHUSTER KINASE MB 2 [facility] FRACTION INC INC ONLY ECG 55044 GRISELDA RECIO LIZZETH ROUTINE 2 EMERGENCY ECG SERVICES W/LEAST 12 LDS I&R ONLY NJX 12743 ERICA ERICA DX/THER 2 VASCELLO VASCELLO AGT KIMBERLEE AGEE [facility] PSC FACET JT LMBR/SAC 3+ LEVEL NJX 09537 ERICA ERICA DX/THER 2 VASCELLO VASCELLO AGT PVRT [facility] PSC FACET JT LMBR/SAC 1 LEVEL NJX 38908 ERICA ERICA DX/THER 2 VASCELLO VASCELLO AGT PVRT [facility] PSC FACET JT LMBR/SAC 2ND LEVEL CONTINUOU E0601 [facility] NEW S 2 HOME HOME POSITIVE MEDICAL MEDICAL AIRWAY EQUIPME EQUIPME PRESSURE DEVICE CUSHN A7032 SHAQ SHAQ NASAL 2 HOME HOME MASK MEDICAL MEDICAL INTERFACE EQUIPME EQUIPME REPLACEME NT ONLY EACH FILTER A7038 SHAQ SHAQ DISPBL 1 HOME HOME USED MEDICAL MEDICAL W/POS EQUIPME EQUIPME ARWAY PRESSURE DEVICE CONTINUOU E0601 SHAQ SHAQ S 1 HOME HOME POSITIVE MEDICAL MEDICAL AIRWAY EQUIPME EQUIPME PRESSURE DEVICE TUBING A7037 SHAQ ORDONEZRELL USED WITH 1 HOME HOME POSITIVE MEDICAL MEDICAL AIRWAY EQUIPME EQUIPME PRESSURE DEVICE HUMDIFIR E0562 SHAQ SHAQ HEATED 1 HOME HOME USED MEDICAL MEDICAL W/POS EQUIPME EQUIPME ARWAY PRESSURE DEVICE FULL FACE A7030 SH[facility] NEW MASK 1 HOME HOME USED MEDICAL MEDICAL W/POS EQUIPME EQUIPME ARWAY PRESS DEVICE EA HEADGEAR A7035 SHAQ SHAQ USED 1 HOME HOME W/POSITIV MEDICAL MEDICAL E AIRWAY EQUIPME EQUIPME PRESSURE DEVICE POLYSOM 76888 LANDEN SCHUSTER 6/>YRS 1 [facility] SLEEP 4/> INC INC ADDL SHWETHA ATTND IIV3 39375 LANDEN SCHUSTER VACCINE [address] [facility] VIRUS 0.5 ML DOSAGE IM USE WRIST L3908 SH[facility] NEW HAND 1 HOME HOME ORTHOSIS MEDICAL MEDICAL EXT EQUIPME EQUIPME CONTROL COCK-UP PREFAB RADEX 04073 LANDEN SCHUSTER WRIST 1 [facility] COMPLETE INC INC MINIMUM 3 VIEWS RADEX 66912 LANDEN SCHUSTER WRIST 1 [facility] COMPLETE INC INC MINIMUM 3 VIEWS RADIOLOGI 51593 LANDEN SCHUSTER C 1 [facility] EXAMINATI INC INC ON KNEE 1/[place] [address] [facility] PETTEY 1 PHYSICIAN JAM RADIAL&UL S GROUP JOCE SHAFT FRACTURES W/O MAN SLINGS A4565 KEVIN L.P. KEVIN L.P. 1 3D 23841 LANDEN SCHUSTER RENDERING 1 [facility] INC INC W/INTERP& POSTPROC DIFF WORK STATION RADIOLOGI 67931 LANDEN SCHUSTER C 1 [facility] EXAMINATI INC INC ON KNEE 3 VIEWS CLTX DSTL 87986 GRISELDA SALGADO BAB RADIAL 1 EMERGENCY FX/EPIPHY SERVICES SL SEP W/O MANJ RADEX 06747 [facility] JOVANNY WRIST 1 MEDICAL BELINDA COMPLETE IMAGING MINIMUM [address] [address] LANDEN SCHUSTER MAXILLOFA 1 [facility] CIAL W/O INC INC CONTRAST MATERIAL RADEX 30135 LANDEN SCHUSTER WRIST 2 1 [place] [address] LANDEN SCHUSTER INFUSION 1 [facility] THER INC INC PROPH ADDL SEQUENT[place] L TO 1 [place] [address] LANDEN SCHUSTER INFUSION 1 [facility] THERAPY/P INC INC ROPHYLAXI S /DX 1ST TO 1 HR BLOOD 33106 LANDEN SCHUSTER COUNT 0 [facility] COMPLETE INC INC AUTO&AUTO DIFRNTL WBC MRI BRAIN 89425 JAZMINE MADRIDUTCHER BRAIN 0 JOVANNY BELINDA STEM W/O CONTRAST MATERIAL RHEUMATOI 42979 LANDEN SCHUSTER D FACTOR 0 [facility] QUANTITAT INC INC JADON ANTINUCLE 45980 LANDEN SCHUSTER AR 0 [facility] ANTIBODIE INC INC S CARLOS C-REACTIV 76131 LANDEN SCHUSTER E PROTEIN 0 [facility] INC INC CREATINE 94792 LANDEN SCHUSTER KINASE 0 [facility] TOTAL INC INC PROTEIN 46044 LANDEN SCHUSTER ELECTROPH 0 [facility] ORETIC INC INC FRACTJ&QU ANTJ SERUM COMPUTER- 17780 [place] JOVANNY AIDED 0 MEDICAL BELINDA DETECTION IMAGING ASS SCREENING MAMMOGRAP HY SCREENING G0202 [place] JOVANNY 0 MEDICAL BELINDA MAMMOGRAP IMAGING HY JERRY [place] [address] LANDEN SCHUSTER IRON 0 [facility] INC INC BLOOD 55673 LANDEN SCHUSTER COUNT 0 [facility] COMPLETE INC INC AUTO&AUTO DIFRNTL WBC BASIC 14867 LANDEN SCHUSTER METABOLIC 0 [facility] [place] [address] LANDEN LANDEN MAGNESIUM 0 [place] [address] LANDEN LANDEN FERRITIN 0 [facility] INC INC IRON 19139 LANDEN SCHUSTER BINDING 0 [facility] CAPACITY INC INC POTASSIUM 34247 LANDEN LANDEN URINE 0 [place] [address] PATHOLOGY PATHOLOGY SURG 0 & & PATHOLOGY CYTOLOGY CYTOLOGY LAB LAB GROSS&[place] [address] LANDEN LANDEN INFUSION 0 [facility] THERAPY INC INC PROPHYLAX IS/DX EA HOUR URINE 10204 LANDEN SCHUSTER 0 [facility] TEST INC INC VISUAL COLOR CMPRSN METHS COLSC FLX 81553 [place] KELI ANT W/RMVL 0 MEDICAL OF TUMOR [place] [address] LANDEN SCHUSTER INFUSION 0 [facility] THERAPY/P INC INC ROPHYLAXI S /DX 1ST TO 1 HR ENDOSCOPI 4542 LANDEN SCHUSTER C 0 [facility] POLYPECTO INC INC MY OF LARGE INTESTINE [ENDOSCOP 4836 LANDEN SCHUSTER IC] 0 [facility] POLYPECTO INC INC MY OF RECTUM IIV3 65632 LANDEN SCHUSTER VACCINE [address] [facility] VIRUS 0.5 ML DOSAGE IM USE SPECIAL 76037 PATHOLOGY PATHOLOGY STAIN 0 & & GROUP 1 CYTOLOGY CYTOLOGY MICROORGA LAB LAB [facility] I&R EGD 70172 SAMIA DICKEY ANT TRANSORAL 0 MEDICAL BIOPSY SERV SINGLE/[place] [address] LANDEN SCHUSTER INFUSION 0 [facility] THERAPY INC [place] [address] PATHOLOGY PATHOLOGY SURG 0 & & PATHOLOGY CYTOLOGY CYTOLOGY LAB LAB GROSS&MANJIT ROSCOPIC EXAM ESOPHAGOG 4516 LANDEN SCHUSTER ASTRODUOD 0 [facility] [place] [address] LANDEN SCHUSTER INFUSION 0 [facility] THERAPY/P INC INC ROPHYLAXI S /DX 1ST TO 1 HR BLOOD 47729 LANDEN SCHUSTER COUNT 0 [facility] COMPLETE INC INC AUTO&AUTO DIFRNTL WBC GONADOTRO 43405 LANDEN SCHUSTER PIN 0 [facility] CHORIONIC INC INC QUALITATI VE BLOOD 79672 LANDEN SCHUSTER COUNT 0 [facility] COMPLETE INC INC AUTO&AUTO DIFRNTL WBC BLOOD 76951 LANDEN SCHUSTER COUNT 0 [facility] COMPLETE INC INC AUTO&[place] [address] [facility] W/WO 0 MEDICAL BELINDA GLUCOSE IMAGING W/SM ASS INTEST FOLLW-THR U POTASSIUM 78015 LANDEN SCHUSTER SERUM 0 [facility] PLASMA/WH INC INC OLE BLOOD RADEX 76869 LANDEN SCHUSTER UPPER GI 0 [facility] W/WO INC INC GLUCAGON/ DELAY IMAGES W/KUB BLOOD 71851 LANDEN SCHUSTER OCCULT 0 [facility] PEROXIDAS INC INC E ACTV QUAL FECES 1-3 SPEC POTASSIUM 09663 LANDEN SCHUSTER SERUM 0 [facility] PLASMA/WH INC INC OLE BLOOD CYANOCOBA 97218 LANDEN SCHUSTER JOSE RAFAEL 0 [facility] VITAMIN INC INC B-12 [place] [address] LANDEN SCHUSTER FOLIC 0 [facility] [place] [address] LANDEN SCHUSTER THYROID 0 [facility] STIMULATI INC INC NG HORMONE TSH BLOOD 89306 LANDEN SCHUSTER COUNT 0 [facility] COMPLETE INC INC AUTO&[place] [address] LANDEN MCKEONON INFUSION 9 [facility] THERAPY/P INC INC ROPHYLAXI S /DX 1ST TO 1 HR THERAPEUT 56609 LANDEN SCHUSTER IC 9 [facility] INJECTION INC INC IV PUSH EACH NEW DRUG OTH & OPN 5304 LANDEN SCHUSTER REP 9 [facility] INDIRECT INC INC ING HERNIA W/GRAFT/P ROSTH ANESTHESI 44615 [facility], Kitty HERNIA 9 ANESTH HAZEL A REPAIR [place] [address] LANDEN SCHUSTER INFUSION 9 [facility] THERAPY INC INC PROPHYLAX IS/DX EA HOUR RPR 1ST 91652 LANDEN MCKEONON INGUN 9 [facility] HRNA AGE INC INC 5 YRS/> INCARCERA SREE BASIC 36815 LANDEN SCHUSTER METABOLIC 9 [facility] PANEL INC INC CALCIUM TOTAL BLOOD 87711 LANDEN SCHUSTER COUNT 9 [facility] COMPLETE INC INC AUTO&AUTO DIFRNTL WBC GONADOTRO 73989 LANDEN MCKEONON PIN 9 [facility] CHORIONIC INC INC QUALITATI VE Encounters Encounter Start End Date Code Location Performer Type Date HOSPITAL [facility] - 7 7 [facility] OUTPATIEN [facility] T HOSPITAL LANDEN - 7 7 [facility] OUTPATIEN [facility] T OFFICE 86832 [facility] OUTPATIEN 7 7 T NEW 45 MINUTES OFFICE 44334 [facility] OUTPATIEN 7 7 PHYSICIAN T VISIT S GROUP 25 MINUTES OFFICE 49009 [facility] OUTPATIEN 7 7 [facility] T [facility]ISIT 5 INC MINUTES HOSPITAL L[facility]EN - 7 7 [facility] OUTPATIEN [facility] T OFFICE 32123 [facility] OUTPATIEN 7 7 PHYSICIAN T NEW 20 S GROUP MINUTES HOSPITAL [facility] - 7 7 [facility] T HOSPITAL LANDEN - 7 7 [facility] OUTPATIEN INC T HOSPITAL LANDEN - 7 7 [facility] OUTPATIEN [facility] LANDEN - 7 7 [facility]PATIEN INC T [facility]IT[facility]248 [facility] 7 PHYSICIAN E S GROUP MEDICINE NEW PATIENT 40-64YRS HOSPITAL L[facility]EN - 7 7 [facility] OUTPATIEN [facility] T OFFICE 47241 [facility] OUTPATI[facility] 7 7 PHYSICIAN T VISIT S GROUP 40 MINUTES HOSPITAL LANDEN - 7 7 [facility] OUTPATIEN [facility] LANDEN - 7 7 [facility] LANDEN - 7 7 [facility]PATIEN [facility] T EMERGENCY 32904 L[facility] 7 7 [facility] T VISIT HIGH/URGE NT SEVERITY HOSPITAL LANDEN - 7 7 [facility] OUTPATIEN [facility] T OFFICE 77251 [facility] 7 7 FAMILY T NEW 30 CARE MINUTES CENTER OFFICE 84593 [facility] 7 7 T [facility]ISIT 15 MINUTES HOSPITAL L[facility]EN - 7 7 [facility] OUTPATIEN [facility] T OFFICE 14893 [facility] OUTPATIEN 6 6 NURSE CK BING T VISIT PRACTITIO 40 NER GR MINUTES HOSPITAL [facility] L[facility] - 6 6 [facility] OUTPATIEN [facility] T OFFICE 88278 [facility] CONSULTAT 6 6 NURSE CK BING ION PRACTITIO NEW/ESTAB NER GR PATIENT 60 MIN OFFICE 87492 [facility] 6 6 OLY OLY T VISIT 15 MINUTES EMERGENCY 87962 MONTERROSO MONTERROSO DEPT 5 5 JOSS JOSS VISIT HIGH SEVERITY& THREAT [facility] EMERGENCY 04536 [facility] DEMETRIO DEPT 5 5 VISIT HIGH SEVERITY& THREAT [facility] OFFICE 94672 FERMÍN KOVACS OUTPATIEN 5 5 ALTHEA ALTHEA T VISIT 40 MINUTES [facility]OSP[facility] - 5 5 [facility] OUTPATI[facility] INC T OFFICE 44634 MEÑO BAILEY 4 4 OLY OLY T VISIT 15 MINUTES OFFICE 99170 MEÑO BAILEY 4 4 OLY OLY T VISIT 15 MINUTES OFFICE 39893 MEÑO BAILEY 4 4 OLY OLY T VISIT 15 MINUTES OFFICE 63392 MEÑO BAILEY 4 4 OLY OLY T VISIT 15 MINUTES OFFICE 60014 FERMÍN DENSONURN OUTPATIEN 4 4 ALTHEA ALTHEA T VISIT 40 MINUTES OFFICE 46840 [facility] CONSULTAT 4 4 [place] LI[place] ION ADULT & NEW/ESTAB PED PATIENT 40 MIN Emergency TUAN Quintero MD (ER) 4 21:38 4 23:12 [facility] EMERGENCY 30506 GRISELDA QUINTERO DEPT 4 4 EMERGENCY MANJIT VISIT SERVICES HIGH SEVERITY& THREAT [facility] - 4 4 [facility] OUTPATIEN INC T OFFICE 71467 FERMÍN KOVACS OUTPATIEN 4 4 ALTHEA ALTHEA T VISIT 40 MINUTES OFFICE 76422 MEÑO BAILEY 3 3 OLY OLY T VISIT 15 MINUTES OFFICE 33842 MEÑO BAILEY 3 3 OLY OLY T VISIT 15 MINUTES OFFICE 98428 FERMÍN KOVACS OUTPATIEN 3 3 ALTHEA ALTHEA T VISIT 40 MINUTES OFFICE 17279 ARTHRITIS MD ARTEM[facility] OUTPATIEN 3 3 AND DAVE Rogers VISIT OSTEOPORO 15 SIS C MINUTES HOME 88013 [facility] VISIT EST 3 3 HOME PT HEALTH MOD-HI SEVERITY 40 MINUTES HOME [facility], 3 3 HOME OUTPATIEN HEALTH T HOME 11530 [facility] VISIT EST 3 3 HOME PT HEALTH MOD-HI SEVERITY 40 MINUTES HOME 09268 [facility] VISIT EST 3 3 HOME PT HEALTH MOD-HI SEVERITY 40 MINUTES HOME 46091 [facility] VISIT EST 3 3 HOME PT HEALTH MOD-HI [facility]VERITY [address] [facility] [address] [facility] [address] [facility] OFFICE 48401 [facility] REMEDIOSSTCRYSTAL OUTPATIEN 3 3 PHYSICIAN ALIREZA GUILLORY 30 S GROUP MINUTES OFFICE 67954 FERMÍN FERMÍN OUTPATIEN 3 3 ALTHEA OH T VISIT 25 MINUTES OFFICE 72429 [facility]AC[facility]Y OUTPATIEN 3 3 NEUROLOGY [facility]FA[facility] T VISIT CENTER 25 BRIANNA MINUTES OFFICE 63707 FERMÍN FERMÍN OUTPATIEN 2 2 ALTHEA OH T VISIT 25 MINUTES OFFICE 58592 ARTHRITIS MD ARTEMIO CONSULTAT 2 2 AND MAN ION OSTEOPORO NEW/ESTAB SIS C PATIENT 60 MIN [facility] - 2 2 [facility] INC T OFFICE 22698 FERMÍN FERMÍN OUTPATIEN 2 2 ALTHEA Rogers NEW 60 MINUTES OFFICE 94062 ERICA VASCELLO OUTPATIEN 2 2 VASCELLO ALONDRA T VISIT PSC 25 MINUTES [facility] - 2 2 [facility] INC T OFFICE 25451 ZACARIAS REMY OUTPATIEN 2 2 HEALTH RAFAEL T VISIT MEDICAL 25 GROUP MINUTES OFFICE 00238 MEÑO JEFFRIESEN 2 2 OLY OLY T VISIT 25 MINUTES [facility] - 2 2 [facility] INC T OFFICE 49174 [facility] AD[facility] & NEW/ESTAB PED PATIENT 40 MIN OFFICE 00267 MEÑO BAILEY 2 2 OLY OLY T VISIT 15 MINUTES EMERGENCY 63150 GRISELDA QUINTERO DEPT 2 2 EMERGENCY EMERSON VISIT SERVICES HIGH SEVERITY& THREAT [facility] - 2 2 [facility] OUTPATIEN INC T EMERGENCY 50609 [facility] 2 2 [facility] DEPARTMEN INC T VISIT HIGH/URGE NT SEVERITY [facility] - 2 2 [facility] OUTPATIEN INC T EMERGENCY 95090 [facility] 2 2 [facility] DEPARTMEN INC T VISIT HIGH/URGE NT SEVERITY EMERGENCY 27984 GRISELDA MOREAU DEPT 2 2 EMERGENCY VISIT SERVICES HIGH SEVERITY& THREAT [facility] - 1 1 [facility] OUTPATIEN INC T OFFICE 52365 MEÑO BAILEY 1 1 OLY OLY T VISIT 15 MINUTES [facility]OS[facility] - 1 1 [facility]EN [facility] - 1 1 [facility] T [facility] 01756 [facility] NEUROLOGY [facility] T VISIT C[facility] 25 BRIANNA MINUTES [facility] - 1 1 [facility] - 1 1 [facility] EMERGENCY 12879 [facility] 1 1 [facility] DEPARTMEN [facility] T VISIT LOW/MODER SEVERITY EMERGENCY 33909 GRISELDA KELLY 1 1 EMERGENCY DEPARTMEN SERVICES T VISIT HIGH/URGE NT SEVERITY OFFICE [id number] MEÑO WILDER OUTPATIEN 1 1 [facility] [address] [facility] OFFICE [id number] RESTORATIONIST JONEL [facility]PATIEN 0 0 NEUROLOGY [facility] [address] [facility] OFFICE [id number] RESTORATIONIST JONEL CONSULTAT 0 0 NEUROLOGY [facility] C[facility] NEW/ESTAB BRIANNA PATIENT 80 MIN [facility] OFFICE [id number] DEANDRE CARRERA OUTPATIEN 0 0 SHARMAINE SHARMAINE T VISIT 15 MINUTES OFFICE [id number] DEANDRE CARRERA OUTPATIEN 0 0 SHARMAINE A SHARMAINE A T VISIT 15 MINUTES [facility] - 9 9 [facility] 9 9 [facility] T OFFICE [id number] JUDIE DIMAS CONSULTAT 9 9 , LISA GONZALEZ ION NEW/ESTAB PATIENT 60 MIN OFFICE 42700 DEANDRE CARRERA OUTPATIEN 9 9 SHARMAINE A SHARMAINE A T VISIT 15 MINUTES OFFICE [id number] DEANDRE CARRERA OUTPATIEN 9 9 SHARMAINE A SHARMAINE A T VISIT 15 MINUTES OFFICE [id number] DEANDRE CARRERA OUTPATIEN 9 9 SHARMAINE A SHARMAINE A T VISIT 15 MINUTES
--- OUTSIDE RECORDS SUMMARY | 2017-01-06 02:42 | External Medical Summary Rpt | CCD ---
Author Author , MYRIAM Organization MYRIAM Address Unknown Phone Care Team Providers Care Case Reviewer Name Role Phone TERESO PHYLICIA, TERESO PHYLICIA [...] C AYOOB AND, AYOOB AND Unavailable Unavailable [facility] Un[facility], [facility] Unavailable Unavailable [facility]ORATORIES, [facility] Unavailable Unavailable [facility]IES, [facility] Unavailable Unavailable CENTER, [facility], [facility] Unavailable Unavailable KELI ANT, KELI ANT Unavailable Unavailable [facility] Unavailable Unavailable SERVICE, [facility] Unavailable Unavailable SERVICE, [facility] EDISON DEMETRIO, EDISON DEMETRIO Unavailable Unavailable EDISON DEMETRIO, EDISON DEMETRIO Unavailable Unavailable SMITH LIZZY, Unavailable Unavailable SMITH LIZZY [facility] Unavailable Unavailable ADULT & PED, [facility], Unavailable Unavailable [facility] RICHEY PEDRO, RICHEY PEDRO Unavailable Unavailable JOVANNY BELINDA, Unavailable Unavailable JOVANNY BELINDA BUCK, BUCK Unavailable Unavailable JAZMINE C JOVANNY, Unavailable Unavailable JAZMINE C JOVANNY [facility] Unavailable [place]available [place], [facility] [place] [facility] Un[place] [facility], [facility] Unavailable Unavailable [facility] Unavailable Unavailable JONEL RAFAEL, Unavailable Unavailable JONEL RAFAEL [facility], Unavailable Unavailable [facility] EM IV OLY, EM Unavailable Unavailable IV OLY FRYMAN, FRYMAN Unavailable Unavailable SHIREEN, SHIREEN Unavailable Unavailable SHIREEN MANJIT, SHIREEN Unavailable Unavailable MANJIT [facility] Unavailable Unavailable HOSPITA, [facility] ALEX WAY, ALEX WAY Unavailable Unavailable RECIO LIZZETH, RECIO LIZZETH Unavailable Unavailable HABASH, HABASH Unavailable Unavailable HABASH, HABASH Unavailable Unavailable HARPEL, HARPEL Unavailable Unavailable SIMEON ISHMAEL, SIMEON Unavailable Unavailable ISHMAEL [facility] Unavailable Unavailable CENTER, [facility] Unavailable Unavailable CENTER, [facility] Unavailable Unavailable INC, [facility] Unavailable Unavailable HOSPITAL P, [facility], [facility]available Unavailable [facility] Unavailable Unavailable EQUIPMENT, [facility] Un[facility] Unavailable GROUP PS, [facility] Unavailable Unavailable [facility], [facility] Unavailable Unavailable MEDICAL G, [facility] NURSE Unavailable Unavailable PRACTITIONER GR, [facility] NURSE PRACTITIONER GR EMI POSEY, Unavailable Unavailable MARIE MAYORGA Unavailable Unavailable [facility] Un[facility], [facility] CRISTINA OLY, CRISTINA Unavailable Unavailable OLY JEANNETTE SORENSEN MD Unavailable [facility]available [facility] JOINER CHAVEZ, JOINER CHAVEZ Unavailable Unavailable [facility] Unavailable Unavailable SERVICES, [facility] FERMÍN ALTHEA, Unavailable Unavailable FERMÍN ALTHEA FERMÍN ALTHEA, Unavailable Unavailable FERMÍN ALTHEA [facility], Unavailable Unavailable [facility] Unavailable Unavailable [facility], [facility] DEANDRE ALEMAN Unavailable Unavailable SHARMAINE CONNORS, Unavailable [...] PICHARDO VASJESSIE ALONDRA, Unavailable Unavailable VASCELLO ALONDRA [facility] Unavailable Unavailable [address], [facility] NAEL POSEY, NAEL Unavailable Unavailable [facility] Unavailable Unavailable DEPT [facility], [facility] DEPT [facility] Unavailable Unavailable DEPT [facility], [facility] DEPT [facility] MONTERROSO JOSS, MONTERROSO Unavailable Unavailable JSOS MONTERROSO JOSS, MONTERROSO Unavailable Unavailable JOSS WILP, WILP Unavailable Unavailable [facility], Unavailable [facility], Unavailable Unavailable [facility] Purpose Continuity of Care Document - 07-26-2008 through 2016 Problems Code Diagnosis DOS Provider Status [id number] ASHD [place] 11-30-2016 [facility] W/UNS INC ANGINA PECTORIS J449 CHRONIC 11-30-2016 [facility]STRUCTIVE [facility] PULMONARY INC DISEASE UNS Z720 TOBACCO USE 11-30-2016 [facility] INC Z955 PRESENCE OF 11-30-2016 [facility] CORONARY [facility] ANGIOPLASTY INC IMPLANT & GRAFT R928 OTH ABNORM 11-24-2016 [facility] & [facility] INCONCLUSIV INC E FIND ON DX IMAG BREAST Y80481 ARCUS 11-23-2016 [facility] SENILIS BILATERAL H2513 AGE-RELATED 11-23-2016 [facility] NUCLEAR CATARACT BILATERAL U64263 REGULAR 11-23-2016 [facility] ASTIGMATISM BILATERAL L570 ACTINIC 11-23-2016 [facility] KERATOSIS D259 LEIOMYOMA 11-17-2016 [facility] UNSPECIFIED GROUP N950 POSTMENOPAU 11-17-2016 [facility] BLEEDING GROUP R21 RASH AND 11-17-2016 [facility] OTHER [facility] NONSPECIFIC INC SKIN ERUPTION K00630 OTHER LONG 11-17-2016 [facility] TERM [facility] CURRENT INC DRUG THERAPY [id number] FX UNS 11-15-2016 [facility] CARPAL BONE HOME UNS WRIST MEDICAL INITIAL ENC EQUIPME CLOS FX K4090 UNILAT 11-11-2016 [facility] INGUINAL PHYSICIANS [facility] W/O GROUP OBST/GANGRE N NOT RECUR I712 THORACIC 11-10-2016 [facility]IC [facility] ANEURYSM INC WITHOUT RUPTURE R55 SYNCOPE AND 11-10-2016 [facility] COLLAPSE PHYSICIANS GROUP I716 THORACOABDO 11-09-2016 [place] [facility]IC IMAGING ASS ANEURYSM WITHOUT RUPTURE I728 ANEURYSM OF 11-09-2016 [place] OTHER MEDICAL SPECIFIED IMAGING ASS ARTERIES J432 CENTRILOBUL 11-09-2016 [place] AR MEDICAL EMPHYSEMA IMAGING ASS K449 DIAPHRAGMAT 11-09-2016 [place] IC HERNIA MEDICAL W/O IMAGING ASS OBSTRUCTION OR GANGRENE N2889 OTHER 11-09-2016 [place] SPECIFIED MEDICAL DISORDERS IMAGING ASS OF KIDNEY AND URETER N289 DISORDER OF 11-09-2016 [place] [facility] URETER IMAGING ASS UNSPECIFIED R921 MAMMO 11-04-2016 [place] CALCIFICATI MEDICAL ON FOUND ON IMAGING ASS DX IMAGING BREAST Z1231 ENCOUNTER 11-04-2016 [place] SCREENING MEDICAL MAMMO MALIG IMAGING ASS NEOPLASM BREAST I10 ESSENTIAL 10-27-2016 [facility] PRIMARY PHYSICIANS HYPERTENSIO GROUP N M78242 ENCOUNTER 10-27-2016 [facility] DRUG ABUSE COUNSELOR EXAM PHYSICIANS GENERAL RTN GROUP W/ABNORMAL FIND A76096 ENCOUNTER 10-27-2016 [facility] DRUG ABUSE COUNSELOR EXAM REFERNCE GENERAL RTN LABORATORIE W/O S ABNORMAL FIND Z1212 ENCOUNTER 10-27-2016 [facility] SCREENING PHYSICIANS MALIGNANT GROUP NEOPLASM RECTUM E785 HYPERLIPIDE 10-20-2016 [facility] JAIME PHYSICIANS UNSPECIFIED GROUP I119 HYPERTENSIV 10-20-2016 [facility] E HEART PHYSICIANS DISEASE GROUP WITHOUT HEART FAILURE I208 OTHER FORMS 10-20-2016 [facility] OF ANGINA PHYSICIANS PECTORIS GROUP I2510 ASHD [place]AGUYUK 10-20-2016 [facility] CORONARY PHYSICIANS ARTERY W/O GROUP ANGINA PECTORIS Z8679 PERSONAL 10-20-2016 [facility] HISTORY OTH PHYSICIANS DISEASES GROUP CIRCULATORY SYSTEM I214 NON-ST 09-01-2016 [facility] ELEVATION PHYSICIANS MYOCARDIAL GROUP INFARCTION R69990 ASHD [place] 09-01-2016 [facility] COR ART PHYSICIANS W/UNSTABLE GROUP ANGINA PECTORIS J441 CHRONIC 08-31-2016 [facility] OBSTRUCTIVE PHYSICIANS PULMONARY GROUP DZ W/EXACERBAT ION I252 OLD 08-30-2016 [facility] P R0602 SHORTNESS 08-30-2016 [place] OF BREATH PHYSICIANS, [facility] R61 GENERALIZED 08-30-2016 [facility] HYPERHIDROS [facility] P [place] R6884 JAW PAIN 08-30-2016 [place] PHYSICIANS, [facility] J020 STREPTOCOCC 08-23-2016 [facility] J0190 ACUTE 06-09-2016 [facility] SINUSITIS UNSPECIFIED J209 ACUTE 06-09-2016 [facility] BRONCHITIS UNSPECIFIED G4734 IDIOPATH 04-04-2016 [facility] REL [facility] NONOBST INC ALVEOL HYPOVENTILA TN R634 ABNORMAL 04-04-2016 [facility] WEIGHT LOSS [facility] INC R911 SOLITARY 04-04-2016 [facility] PULMONARY [facility] NODULE INC R918 OTHER 04-04-2016 [place] NONSPECIFIC MEDICAL ABNORMAL IMAGING ASS FINDING OF LUNG FIELD G4730 SLEEP APNEA 02-12-2016 [facility]SE PRACTITIONE UNSPECIFIED R GR J439 EMPHYSEMA 02-12-2016 [facility]URSE UNSPECIFIED PRACTITIONE R GR Z23 ENCOUNTER 02-03-2016 [facility]UN[facility] DEPT N SINDHU J069 ACUTE UPPER 12-03-2015 [facility] OLY RESPIRATORY INFECTION UNSPECIFIED 87855 OBSTRUCTIVE 12-24-2014 [facility] SLEEP HOME APNEA MEDICAL EQUIPME 496 CHRONIC 12-24-2014 [facility] OBSTRUCTION [facility] NEC 83615 UNSPECIFIED 12-16-2014 [facility] CLOSED HOME FRACTURE OF MEDICAL CARPAL EQUIPME BONE 4412 THORACIC 08-17-2014 MON[facility] JOSS ANEURYSM WITHOUT MENTION OF RUPTURE 68764 SHORTNESS 08-17-2014 [facility] MEDICAL G 59384 OTHER 08-17-2014 MONTERROS[place] JOSS [place] [address] CHEST PAIN 08-17-2014 [facility] [place] UNSPECIFIED RADIOLOGY 4419 AORTIC 08-05-2014 [facility] DEMETRIO ANEUR UNSPEC SITE WITHOUT MENTION RUPTURE 5119 UNSPECIFIED 08-05-2014 [facility] [place] PLEURAL [facility] EFFUSION 76143 PAINFUL 08-05-2014 [facility] DEMETRIO RESPIRATION 4019 UNSPECIFIED 08-01-2014 [facility] ESSENTIAL HEALTH [place]ERT[place]SIO [place]ICAL G N [address]280 DISSECTING 08-01-2014 [facility] AORTIC HEALTH ANEURYSM MEDICAL G THORACIC 13461 DISSECTING 08-01-2014 [facility] [place] AORTIC RADIOLOGY ANEURYSM THORACOABDO ERIN 7140 RHEUMATOID 08-01-2014 [facility] ARTHRITIS HEALTH MEDICAL G 58844 DISSECTING 07-28-2014 [facility] ANEURYSM CLINIC PSC UNSPECIFIED SITE 5180 PULMONARY 07-28-2014 [facility] [place] COLLAPSE RADIOLOGY V5882 ENCOUNTER 07-28-2014 [facility] [place] FITTING&ADJ RADIOLOGY NON-VASCULA R CATHETER NEC 4422 ANEURYSM OF 07-27-2014 [facility] ILIAC SERV ARTERY FOUNDATION 19617 ANEURYSM OF 07-27-2014 [facility] SPLENIC SERV [facility] 4928 OTHER 07-27-2014 [facility] EMPHYSEMA SERV [facility]OUNDATION 5533 DIAPHRAGMAT 07-27-2014 [facility] W/O SERV MENTION FOUNDATION OBSTRUCTION /GANGREN 59311 SOLITARY 07-27-2014 [facility] PULMONARY SERV NODULE FOUNDATION 97537 OTHER 04-21-2014 FER[facility] SELECTIVE ALTHEA IMMUNOGLOBU GILBERTO DEFICIENCIE S 2859 UNSPECIFIED 04-21-2014 [facility] ANEMIA [facility] INC 4739 UNSPECIFIED 04-21-2014 [facility] SINUSITIS [facility] INC 4770 ALLERGIC 04-21-2014 FERMÍ[facility] RHINITIS ALTHEA DUE TO POLLEN 4778 ALLERGIC 04-21-2014 FER[facility] RHINITIS ALTHEA DUE TO OTHER ALLERGEN 82454 OBSTRUCTIVE 04-21-2014 FERMÍN CHRONIC ALTHEA BRONCHITIS WITH EXACERBATIO N 4919 UNSPECIFIED 04-21-2014 [facility] CHRONIC [facility] BRONCHITIS INC 19096 CHRONIC 04-21-2014 [facility]STRUCTIVE [facility] ASTHMA INC UNSPECIFIED 59472 OTHER 04-21-2014 [facility] MALAISE AND [facility] FATIGUE INC V727 DIAGNOSTIC 04-21-2014 FERMÍN SKIN AND ALTHEA SENSITIZATI ON TESTS 4660 ACUTE 03-11-2014 [facility] OYL BRONCHITIS 4659 ACUTE URIS 02-13-2014 [facility] OLY OF UNSPECIFIED SITE 3384 CHRONIC 12-20-2013 [facility] OLY PAIN SYNDROME 462 ACUTE 12-20-2013 [facility] OLY PHARYNGITIS 4779 ALLERGIC 10-24-2013 FERMÍN RHINITIS ALTHEA CAUSE UNSPECIFIED 41389 CHRONIC 10-24-2013 F[facility] OBSTRUCTIVE ALTHEA ASTHMA W/STATUS ASTHMATICUS 67435 ESOPHAGEAL 10-24-2013 FERMÍN REFLUX ALTHEA 9390 FOREIGN 06-10-2013 [facility] [place] [facility] ADULT & PED URETHRA 5921 CALCULUS OF 05-21-2013 [facility] RICHE[facility] URETER CONSULTING SRV V7281 PRE-OPERATI 05-21-2013 [facility] RICHEY VE CARDIOVASCU CONSULTING LAR SRV EXAMINATION 591 HYDRONEPHRO 05-16-2013 [facility] [place] [facility] 7880 RENAL COLIC 05-05-2013 [facility] 2669 UNSPECIFIED 04-22-2013 [facility] VITAMIN B [facility] DEFICIENCY INC 2689 UNSPECIFIED 04-22-2013 [facility] VITAMIN D [facility] DEFICIENCY INC 61764 OBSTRUCTIVE 04-22-2013 [facility] CHRONIC [facility] BRONCHITIS INC WITHOUT EXACERBAT 4829 UNSPECIFIED 04-18-2013 FERMÍN BACTERIAL ALTHEA PNEUMONIA 4619 ACUTE 02-28-2013 [facility] ALDRIDGE SINUSITIS, UNSPECIFIED 47230 VARIANTS 12-01-2012 MEÑ[facility] ALDRIDGE MIGRAINE NEC INTRACT MIGRAINE W/[place] [address] PAIN IN 06-06-2012 [facility] JOINT, AND MULTIPLE OSTEOPOROSI SITES S C 7242 LUMBAGO 06-06-2012 ARTHRITIS AND OSTEOPOROSI S C 7291 UNSPECIFIED 06-06-2012 [facility] MYALGIA AND AND OSTEOPOROSI MYOSITIS S C 17063 UNSPECIFIED 06-01-2012 [facility] OSTEOPOROSI S V5876 AFTERCARE 06-01-2012 [facility] SUR[facility]ERY [facility] NEC 5930 NEPHROPTOSI 05-29-2012 [facility] ANESTHESIA GROUP PS V7283 OTHER 05-28-2012 [facility] SPECIFIED COMMUNITY PRE-OPERATI HOSPITA VE EXAMINATION 2112 BENIGN 05-24-2012 [facility] NEOPLASM OF [facility] DUODENUM INC JEJUNUM AND ILEUM 92450 ACUT GASTR 05-24-2012 PATHOLOGY & ULCER W/O CYTOLOGY MENTION LAB HEMORR PERF/OBST 17244 UNS 05-24-2012 [facility] GASTRITIS&G [facility] ASTRODUODIT INC IS W/O MENTION HEMORR 00132 DYSPHAGIA 05-24-2012 [facility] UNSPECIFIED [facility] INC 01257 UNSPECIFIED 05-16-2012 JEANNETTE SORENSEN MD ARTHROPATHY PSC OTHER SPECIFIED SITES 4780 HYPERTROPHY 05-14-2012 F[facility]ÍN OF NASAL ALTHEA TURBINATES 90215 MIGRAINE 04-25-2012 [facility] W/O AURA NEUROLOGY INTRACT W/O CENTER [place] STATUS MIGRAINOSUS 37355 CHRONIC 04-25-2012 [facility] MIGRAINE NEUROLOGY W/O CENTER [place] W/INTRACTAB LE W/O SM 7231 CERVICALGIA 04-25-2012 [facility] 486 PNEUMONIA, 01-11-2012 [facility] ORGANISM [facility] UNSPECIFIED INC 24503 CHRONIC 12-27-2011 JEANNETTE Tang FATIGUE FRANCHESCA AGEE SYNDROME PSC 7830 ANOREXIA 12-27-2011 JEANNETTE SORENSEN MD PSC V0481 NEED 12-21-2011 [facility] [place] PROPHYLACTI [facility] VACCINATION &INOCULATIO N FLU 5920 CALCULUS OF 12-14-2011 [facility] KIDNEY [facility] INC 96875 HEMATURIA 12-14-2011 [place] UNSPECIFIED [facility]ICAL IMAGING ASS 92984 COR 11-29-2011 [facility]DR[facility] ATHEROSLERO UNSPEC TYPE VESSEL KAGUYUK/LYNN T 16747 ABDOMINAL 11-17-2011 [facility] [place] PAIN, RADIOLOGY UNSPECIFIED SITE 5929 UNSPECIFIED 11-02-2011 [facility] ALDRIDGE URINARY CALCULUS 31000 OTHER ACUTE 10-10-2011 [facility] 5990 URINARY 10-10-2011 [place] [place] [facility] INFECTION [facility] SITE NOT SPECIFIED 28826 NAUSEA WITH 10-10-2011 [facility] VOMITING [facility]BULANCE SERVICE 68893 ABDOMINAL 10-10-2011 [place] PA[facility], EMERGENCY EPIGASTRIC SERVICES 8408 SPRAIN&STRA 04-11-2011 [facility] IN OTH SPEC [facility] P SHOULDER&UP PER ARM 8409 SPRAIN&STRA 04-11-2011 [facility] IN UNSPEC EMERGENCY SITE SERVICES SHOULDER&UP PER ARM 75872 GENERALIZED 04-05-2011 JEANNETTE Tang PAIN FRANCHESCA AGEE PSC 37316 CLOSED 01-12-2011 [facility] FRACTURE OF [facility] LOWER END INC OF RADIUS WITH ULNA V5489 OTHER 01-12-2011 [place] [facility] IMAGING ASS 88911 CLOSED 12-22-2010 [facility] COLLES [facility] FRACTURE INC 24938 CONTUSION 11-19-2010 [facility] OF KNEE [facility] INC 9597 INJURY 11-19-2010 [place] OTHER&UNSPE MEDICAL CIFIED KNEE IMAGING ASS LEG ANKLE&FOOT 11710 PAIN IN 11-12-2010 [facility] JOINT, SHOULDER REGION 920 CONTUSION 11-12-2010 [place] OF FACE MEDICAL SCALP AND IMAGING ASS NECK EXCEPT EYE 9248 CONTUSION 11-12-2010 [facility] EM[facility] SITES NEC SERVICES 2809 UNSPECIFIED 04-05-2010 [facility] IRON [facility] DEFICIENCY INC ANEMIA 1749 MALIGNANT 03-15-2010 [facility] NEOPLASM OF [facility] BREAST INC UNSPECIFIED SITE 7804 DIZZINESS 02-23-2010 JAZMINE C AND JOVANNY GIDDINESS 7802 SYNCOPE AND 02-17-2010 [facility] CENTER [facility] V7611 SCREENING 02-12-2010 [facility] MAMMOGRAM [facility] FOR INC HIGH-RISK PATIENT V7612 OTHER 02-12-2010 [place] SCREENING MEDICAL MAMMOGRAM IMAGING ASS 49066 ANEMIA IN 02-01-2010 [facility] CHRONIC [facility] KIDNEY INC DISEASE 2113 BENIGN 01-27-2010 PATHOLOGY & NEOPLASM OF CYTOLOGY COLON LAB 2114 BENIGN 01-27-2010 PATHOLOGY & NEOPLASM OF CYTOLOGY RECTUM AND LAB ANAL CANAL V7651 SPECIAL 01-27-2010 [facility] SCREENING SERV FOR [facility]ATIO MALIGNANT NEOPLASMS COLON 71782 ATROPHIC 01-06-2010 PATHOLOGY & GASTRITIS CYTOLOGY WITHOUT LAB MENTION OF HEMORRHAGE 64620 OTHER SPEC 01-06-2010 [facility] GASTRITIS SERV WITHOUT FOUNDATIO MENTION HEMORRHAGE 5564 PSEUDOPOLYP 01-06-2010 PATHOLOGY & OSIS OF CYTOLOGY COLON LAB 2827 OTHER 12-30-2009 [facility] HEMOGLOBINO [facility] PATHIES INC 2768 HYPOPOTASSE 12-21-2009 [facility] JAIME [facility] INC 44345 ING CEDRICK 12-19-2008 SCHULSTAD, W/O MENTION LISA [...] ia de te s n re d NC 54 09 10 28 7 00 EA [...] ve C 06 20 20 49 DE NC 30 17 17 14 EN 1 34 [...] 18 -3 -[address] ti NC 50 1- 9 00 SI ve OL [...] 17 17 49 TA 5 84 PH WV AR N- MA CA CY FF OF [...] 18 -0 -[address] ti NC 50 4- 1- 00 00 SI ve [...] ve C 06 20 20 49 DE NC 30 17 17 14 EN 1 34 [...] 17 17 49 TA 5 84 PH WV AR N- MA CA CY FF OF [...] 18 -1 -[address] ti NC 50 5- 4- 00 00 SI ve [...] ve C 06 20 20 49 DE NC 30 17 17 14 EN 1 34 [...] LE HI R AN A IN C NC 59 06 06 27 7 00 EA Ac ED 74 -0 -[address] ti NI 60 7- 0- 00 00 SI ve SO 17 20 20 49 DE NE 31 17 17 03 0 71 PH 10 AR MA MG CY TA OF BL CY ET NT HI AN A IN C BU 00 05 06 60 30 00 EA Ac NC 59 -2 -[address] ti [...] ve C 06 20 20 48 DE NC 30 17 17 57 EN 1 01 [...] 17 17 57 E 5 15 PH NC AR OP MA CY 50 OF MC CY G NT SP HI RA AN Y A IN C BU 00 05 05 60 30 00 EA Ac NC 59 -0 -[address] ti [...] ve C 06 20 20 47 DE NC 30 17 17 69 EN 1 99 [...] 17 17 76 E 5 28 PH NC AR OP MA CY 50 OF MC [...] IN BU 60 30 00 EA Ac NC 59 -0 -[address] ti [...] ve C 06 20 20 47 DE NC 30 17 17 69 EN 1 99 [...] IN BU 60 30 00 EA Ac NC 59 -3 -[address] ti [...] ve C 06 20 20 45 DE NC 30 17 17 36 EN 1 05 [...] 00 12 60 30 00 EA Ac NC 59 -2 -[address] ti [...] ve C 06 20 20 45 DE NC 30 16 17 36 EN 1 05 PH AT AR AL MA CY TA BL OF ET CY NT HI AN A IN C FL 60 12 01 16 30 00 EA Ac UT 43 -1 -[address] ti IC 20 3- 9 00 SI ve 26 20 20 45 DE ON 41 16 17 76 E 5 28 PH NC AR OP MA CY 50 OF MC [...] Ml ti ve Sy ri ng e NC 00 02 0 No OM 64 -0 [...] 11 11 RI TA 8 PH CH WV AR AR N- MA D CA CY [...] 11 11 RI TA 8 PH CH WV AR AR N- MA D CA CY W FF OF 50 -3 CY 25 NT -4 HI 0 AN A NA 53 09 09 5 60 5 EA 23 AR Ac NC 74 -0 -[address] 93 NO [...] 0 10 5 EA 23 SO Ac NC 74 -1 -[address] 72 KA [...] 11 11 RI TA 8 PH CH WV AR AR N- MA D CA CY [...] 11 11 SHRUTHI TA 8 PH E WV AR A N- MA CA CY FF [...] 10 10 SHRUTHI TA 8 PH E WV AR A N- MA CA CY FF [...] 10 10 SHRUTHI TA 8 PH E WV AR A N- MA CA CY FF [...] -1 -[address] 58 SC ti NC 90 8- 8- 0 SI 45 H [...] 10 10 SHRUTHI TA 8 PH E WV AR A N- MA CA CY FF [...] 10 10 SHRUTHI TA 8 PH E WV AR A N- MA CA CY FF OF 50 -3 CY 25 NT -4 HI 0 AN A BU 00 07 07 0 36 6 EA 18 NI Ac TA 60 -1 -[address] 32 CH ti LB 32 3- 3- 00 SI 75 OL ve -A 54 20 20 DE S CE 42 10 10 SHRUTHI TA 8 PH E WV AR A N- MA CA CY FF OF 50 -3 CY 25 NT -4 HI 0 AN A BU 00 03 03 0 36 6 EA 16 NI Ac TA 59 -0 -[address] 59 CH ti LB 13 2- 2- 00 SI 46 OL ve -A 36 20 20 DE S CE 90 10 10 SHRUTHI TA 5 PH E WV AR A N- MA CA CY FF [...] 10 10 SHRUTHI TA 5 PH E WV AR A N- MA CA CY FF OF 50 CY -3 NT 25 HI -4 AN 0 A BU 00 01 01 00 36 7 EA 15 NI Ac TA 59 -0 -[address] 90 CH ti LB 13 9- 8- 00 SI 22 OL ve -A 36 20 20 DE S CE 90 10 10 SHRUTHI TA 5 PH E WV AR A N- MA CA CY FF OF 50 CY -3 NT 25 HI -4 AN 0 A BU 00 12 12 00 36 7 EA 15 NI Ac TA 59 -1 -[address] 57 CH ti LB 13 4- 1- 00 SI 60 OL ve -A 36 20 20 DE S CE 90 09 09 SHRUTHI TA 5 PH E WV AR A N- MA CA CY FF [...] 09 09 SHRUTHI TA 1 PH E WV AR A N- MA CA CY FF [...] 09 09 SHRUTHI TA 1 PH E WV AR A N- MA CA CY FF [...] Procedure DOS Code Location Performer Comment BASIC 89566 [facility] SCHUSTER METABOLIC 7 [facility] PANEL INC INC CALCIUM TOTAL URINE 99332 [facility] SCHUSTER 7 [facility] TEST INC INC VISUAL [place] CMPR[place] [address] [facility] SCHUSTER SAME 7 [facility] PHYS/QHP INC INC INITIAL 15 MINS <5 YRS CATH PLMT 14633 [facility] SCHUSTER L HRT & 7 [facility] ARTS INC INC W/NJX & ANGIO IMG S&I BLOOD 33107 [facility] SCHUSTER COUNT 7 [facility] COMPLETE INC INC AUTO&AUTO DIFRNTL WBC DIAGNOSTI 18863 [facility] SCHUSTER C 7 [facility] H[facility] MAMMOGRAP INC INC HY COMPUTER- AIDED DETCJ BI US BREAST 06274 [facility] SCHUSTER UNI REAL 7 [facility] TIME INC INC WITH IMAGE COMPLETE FITTING 52076 [facility] HABASH SPECTACLE 7 S XCPT APHAKIA BIFOCAL BIFOCL V2208 HABASH HABASH +/-4.25-+ 7 /-7.00D SPHER 2.12-4.00 D CYL-EA FRAMES V2020 HABASH HABASH PURCHASES 7 BIFOCL V2207 HABASH HABASH +/-4.25-+ 7 /-7.00D SPHER 0.12-2.00 D CYL-EA O2 CONC 1 E1390 SHAQ RODRIGUEZ 7 HOME HOME 85%/>02 [facility] E[facility] LANDEN SCHUSTER OUTPATIEN 7 [facility] T CLIN INC INC VISIT ASSESS & MGMT PT EVENT C1764 LANDEN SCHUSTER RECORDER 7 [facility] CARDIAC INC INC IMPLANTAT 05329 LANDEN SCHUSTER ION 7 [facility] PT-ACTIVA INC INC SREE CARDIAC EVENT RECORDER ENDOMETRI 75741 [facility] BX 7 PHYSICIAN W/WO S GROUP ENDOCERVI X BX W/[place] [address] LANDEN SCHUSTER RETROPERI 7 [facility] TONEAL INC [place] W/[place] [address] CH[facility]STIE PLAZA RETROPERI 7 MEDICAL TONEAL IMAGING REAL TIME ASS W/IMAGE LIMITED CT THORAX 79483 CHRISTIE PLAZA 7 MEDICAL W/CONTRAS IMAGING T ASS MATERIAL FINAL RPT G[address]/MRI 7 MEDICAL CHEST/NCK IMAGING /U/S NO ASS THR NOD<1.[address] [place] [address] CH[facility]STIE PLAZA ABDOMEN 7 MEDICAL W/CONTRAS IMAGING T ASS MATERIAL FINAL G9551 CHRISTIE PLAZA REPR ABD 7 MEDICAL IMAG STS IMAGING W/O ASS INCIDNT FND LES NTD: [place] [address] LANDEN SCHUSTER ANGIOGRAP 7 [facility] HY INC INC ABDOMEN W/CONTRAS T/NONCONT RAST FINAL G9638 CHRISTIE PLAZA REPORTS 7 MEDICAL W/O DOC IMAGING 1/[place] [address] LANDEN SCHUSTER ANGIOGRAP 7 [facility] HY CHEST INC INC W/CONTRAS T/NONCONT RAST SCREENING G0202 CHRISTIE [facility] 7 MEDICAL MAMMOGRAP IMAGING HY JERRY ASS INCL CAD WHEN PERFORMD INFO 7025F [facility] 7 MEDICAL ANALYSIS [place] [address] CH[facility]STIE PLAZA TRANSVAGI 7 MEDICAL NAL IMAGING ASS MAMMO 3340F CHRISTIE [facility] ASSESSMEN 7 MEDICAL T CAT IMAGING INCOMP ASS ADDTNL IMAGE DOCD SCREENING 26883 LANDEN MCKEONON 7 [facility] MAMMOGRAP INC INC HY BI 2-VIEW BREAST INC CAD COLLECTIO 81159 LANDEN Hurley VENOUS 7 [facility] BLOOD INC INC VENIPUNCT URE CREATININ 66044 LANDEN SCHUSTER E BLOOD 7 [place] [address] LANDEN SCHUSTER UREA 7 [facility] NITROGEN INC INC QUANTITAT JADON BLOOD 71747 [facility] O[facility]ULT 7 PHYSICIAN PHYSICIAN PEROXIDAS S GROUP S GROUP E ACTV QUAL FECES 1-3 SPEC IADNA 01500 [facility] NEISSERIA 7 PHYSICIAN S GROUP GONORRHOE AE DIRECT PROBE TQ IADNA 64590 BIO BIO NEISSERIA 7 REFERNCE 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 GONORRHOE IES IES AE AMPLIFIED PROBE TQ IADNA NOS 13446 BIO BIO 7 REFERNCE REFERNCE AMPLIFIED LABORATOR LABORATOR PROBE TQ IES IES EACH ORGANISM IADNA 13856 BIO BIO TRICHOMON 7 REFERNCE 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 VAGINALIS IES IES AMPLIFIED PROBE TECH IADNA 19895 BIO BIO CHLAMYDIA 7 REFERNCE 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 TRACHOMAT IES IES IS AMPLIFIED PROBE TQ CULTURE 35714 [facility] CHLAMYDIA 7 PHYSICIAN ANY S GROUP SOURCE CYTP C/V 82462 BIO BIO AUTO THIN 7 REFERNCE REFERNCE LYR LABORATOR LABORATOR PREPJ SCR IES IES MNL RESCR PHYS ECG 36654 LANDEN SCHUSTER ROUTINE 7 [facility] ECG INC INC W/LEAST 12 LDS TRCG ONLY W/O I&R ECG 15836 [facility] ROUTINE 7 PHYSICIAN ECG S GROUP W/LEAST 12 LDS I&R ONLY O2 CONC 1 E1390 [facility] [place] 7 HOME HOME 85%/>02 MEDICAL MEDICAL CONC AT EQUIPME EQUIPME PRSC FLW RATE DRUG TEST 14269 LANDEN SCHUSTER PRSMV 7 [facility] QUAL DIR INC INC OPTICAL OBS PER DAY NEBULIZER E0570 [facility] NEW WITH 7 HOME HOME COMPRESSO MEDICAL MEDICAL R EQUIPME EQUIPME ADMN SET A7005 YOUR YOUR W/SM VOL 7 PHARMACY [facility]AC[facility] NEBULIZR NON-DISPB L ECG 84379 LANDEN SCHUSTER ROUTINE 7 [facility] ECG INC INC W/LEAST 12 LDS TRCG ONLY W/O I&R O2 CONC 1 E1390 [facility] [place] PORT 7 HOME HOME 85%/>02 MEDICAL MEDICAL CONC AT EQUIPME EQUIPME PRSC FLW RATE INTRDUCR/ C1894 LANDEN SCHUSTER SHEATH 7 [facility] NOT GUID INC INC INTRACARD EP NON-[facility] 95258 [facility] DISCHARGE 7 PHYSICIAN DAY S GROUP MANAGEMEN T 30 MIN/< LIPID 41467 LANDEN SCHUSTER PANEL 7 [facility] INC INC CATHETER C1725 LANDEN SCHUSTER TRANSLUMI 7 [facility] NAL INC INC ANGIOPLAS TY NON-LASER BASIC 16496 LANDEN SCHUSTER METABOLIC 7 [facility] PANEL INC INC CALCIUM TOTAL CLOSURE C1760 LANDEN SCHUSTER DEVICE 7 [facility] VASCULAR INC INC GUIDE C1769 LANDEN SCHUSTER WIRE 7 [facility] INC INC STENT C1876 LANDEN SCHUSTER NON-COATE 7 [facility] D/NON-COV INC INC ERED W/DELIVER Y SYSTEM COLLECTIO 88240 LANDEN SCHUSTER N VENOUS 7 [facility] BLOOD INC INC VENIPUNCT URE BLOOD 95041 LANDEN SCHUSTER COUNT 7 [facility] COMPLETE INC INC AUTO&AUTO DIFRNTL WBC COAGULATI 08992 LANDEN SCHUSTER ON TIME 7 [facility] ACTIV[place] PRQ [address] [facility] TRLUML 7 PHYSICIAN CORONARY S GROUP STENT W/ANGIO [facility] G0378 LANDEN SCHUSTER OBSERVATI 7 [facility] ON INC INC SERV[facility] G0378 LANDEN SCHUSTER OBSERVATI 7 [facility] ON INC INC SERVICE PER HOUR CATH PLMT 13739 LANDEN SCHUSTER L HRT & 7 [facility] ARTS INC INC W/NJX & ANGIO IMG S&I GUIDE C1769 LANDEN SCHUSTER WIRE 7 [facility] INC INC INITIAL 29810 [facility] 7 PHYSICIAN CARE/DAY S GROUP 50 MINUTES CATHETER C1725 LANDEN SCHUSTER TRANSLUMI 7 [facility] NAL INC INC ANGIOPLAS TY NON-LASER URINE 28015 LANDEN SCHUSTER 7 MEM [facility] TEST INC INC VISUAL COLOR CMPRSN METHS AMB A0427 [facility] SERVICE 7 AMBULANCE AMBULANCE ALS SERVICE SERVICE EMERGENCY TRANSPORT LEVEL [address] [facility] CARE 7 PHYSICIAN ILL/INJUR S, PLLC ED PATIENT INIT 30-74 MIN GROUND A0425 [facility] MILEAGE 7 AMBULANCE AMBULANCE PER SERVICE SERVICE STATUTE MILE RADIOLOGI 35266 [place] [facility] 7 MEDICAL EXAMINATI IMAGING ON CHEST ASS SINGLE VIEW FRONTAL ECG 17199 LANDEN SCHUSTER ROUTINE 7 [facility] ECG INC INC W/LEAST 12 LDS TRCG ONLY W/O I&R COMPREHEN 32950 LANDEN SCHUSTER SIVE 7 [facility] [place] [address] LANDEN SCHUSTER TROPONIN 7 [facility] [place] [address] LANDEN SCHUSTER INFUSION 7 [facility] THERAPY/P INC INC ROPHYLAXI S /DX 1ST TO 1 HR THERAPEUT 50529 LANDEN SCHUSTER IC 7 [facility] INJECTION INC INC IV PUSH EACH NEW DRUG ECG 24415 [facility] ROUTINE 7 PHYSICIAN ECG S, PLLC W/LEAST 12 LDS I&R ONLY BLOOD 26410 LANDEN SCHUSTER COUNT 7 [facility] COMPLETE INC INC AUTO&AUTO DIFRNTL WBC PRESSURIZ 80811 LANDEN SCHUSTER ED/NONPRE 7 [facility] SSURIZED INC INC INHALATIO N TREATMENT IAADIADOO 82348 [facility] 7 [facility] GROUP A O2 CONC 1 E1390 [facility] [place] 7 HOME HOME 85%/>02 MEDICAL MEDICAL CONC AT EQUIPME EQUIPME [facility] FLW RATE O2 CONC 1 E1390 [facility] [place] 7 HOME HOME 85%/>02 MEDICAL MEDICAL CONC AT EQUIPME EQUIPME [facility] FLW RATE O2 CONC 1 E1390 [facility] [place] 7 HOME HOME 85%/>02 MEDICAL MEDICAL CONC AT EQUIPME EQUIPME [facility] FLW RATE O2 CONC 1 E1390 [facility] [place] 7 HOME HOME 85%/>02 MEDICAL MEDICAL CONC AT EQUIPME EQUIPME [facility] FLW RATE FINAL G9638 [facility] REPORTS 7 MEDICAL W/O DOC IMAGING 1/MORE ASS DOSE REDUCTION TECH FINAL RPT G[address]/MRI 7 MEDICAL CHEST/NCK IMAGING /U/S NO ASS THR NOD<1.[address] THORAX 74403 LANDEN SCHUSTER W/O 7 [facility] CONTRAST INC INC MATERIAL O2 CONC 1 E1390 [facility] [place] 6 HOME HOME 85%/>02 MEDICAL MEDICAL CONC AT E[place] FLW RATE O2 CONC 1 E1390 [facility] [place] 6 HOME HOME 85%/>02 MEDICAL MEDICAL CONC AT EQUIPME EQUIPME [facility] FLW RATE PLETHYSMO 74886 [facility] BUCK GRAPHY 6 MEDICAL LUNG SERV VOLUMES FOUNDAT[facility] W/WO N AIRWAY RESIST SPMTRY 40715 [place] W/VC 6 MEDICAL EXPIRATOR SERV Y ANA MARIA FOUNDATIO W/WO MXML N VOL VNTJ PULMONARY 12688 [place] STRESS 6 [place]ICAL [place] [address] [place] DIFFUSING 6 MEDICAL CAPACITY SERV FOUNDATIO N IIV4 VACC 64214 [facility] S[facility]IT 6 DISTRICT DISTRICT VIRUS 0.5 HLTH DEPT HLTH DEPT ML DOS SINDHU SINDHU FOR IM USE ANTINUCLE 95358 LANDEN SCHUSTER AR 6 [facility] ANTIBODIE INC INC S CARLOS COMPREHEN 60049 LANDEN SCHUSTER SIVE 6 [facility] METABOLIC INC INC PANEL COLLECTIO 58043 LANDEN SCHUSTER N VENOUS 6 [facility] BLOOD INC INC VENIPUNCT URE ALPHA-1-A 83252 LANDEN SCHUSTER NTITRYPSI 6 [facility] N INC INC PHENOTYPE ANTIBODY 39672 LANDEN SCHUSTER IDENTIFIC 6 [facility] ATION INC INC LEUKOCYTE ANTIBODIE S BLOOD 20913 LANDEN SCHUSTER COUNT 6 [facility] COMPLETE INC INC AUTO&[place] [address] LANDEN SCHUSTER THYROID 6 MEM HOSP MEM [...] YOUR YOUR W/SM VOL 6 PHARMACY PHARMACY [facility] NEBULIZR NON-DISPB L O2 CONC 1 [...] YOUR YOUR W/SM VOL 5 [facility] NON-DISPB L TUBING A7037 [facility] NEW [...] FLWMTR HUMIDFR&M ASK O2 CONC 1 E1390 [facility] RODRIGUEZ 5 HOME HOME 85%/>02 MEDICAL MEDICAL [...] RENT; EQUIPME EQUIPME FLWMTR HUMIDFR&M ASK RADIOLOGI 75443 MONTERROSO MONTERROSO C 5 JOSS JOSS EXAMINATI ON CHEST SINGLE VIEW FRONTAL ECG 53186 MONTERROSO MONTERROSO ROUTINE 5 JOSS JOSS ECG W/LEAST 12 LDS I&R ONLY O2 CONC 1 E1390 [facility] RODRIGUEZ 5 HOME HOME 85%/>02 MEDICAL MEDICAL CONC AT EQUIPME EQUIPME PRSC FLW RATE ECG 95006 [facility] NAEL ROUTINE 5 [facility] ECG MEDICAL W/LEAST G 12 LDS I&[place] [address] [facility] [place] KOST[place]IC ANGIOGRAP 5 RADIOLOGY [place] HY CHEST W/CONTRAS T/NONCONT RAST RADIOLOGI 19038 [facility] [place] KOST[place]IC C 5 RADIOLOGY [place] EXAMINATI ON CHEST SINGLE VIEW FRONTAL INITIAL 16908 [facility]/DAY MEDICAL [address] ANGIO 54791 [facility] [place] MAYO ABD&PLVIS 5 RADIOLOGY GUTIERREZ CNTRST MTRL W/[place] [address] [facility] [place] ANGIOGRAP 5 RADIOLOGY GUTIERREZ HY CHEST W/CONTRAS T/NONCONT RAST RADIOLOGI 38428 [facility] [place] SIMEON C 5 RADIOLOGY ISHMAEL EXAMINATI ON CHEST SINGLE VIEW FRONTAL RADIOLOGI 25804 [facility] [place] SIMEON C 5 RADIOLOGY ISHMAEL EXAMINATI ON CHEST SINGLE VIEW FRONTAL ANES HRT [address] PERICRD 5 A SAC&GRT ASSOCIATE VSLS S PSC W/CHARGE AUDITOR OXTJ >1MO PO SPCL STN 37326 KAHLIL PICHARDO 2 I&R 5 [facility] EXCPT CLINIC MICROORG/ PSC ENZYME/IM CYT DOPPLER [address] ECHOCARD 5 A PULSE ASSOCIATE WAVE S PSC W/SPECTRA L DISPLAY ASCENDING 34378 EM IV EM IV AORTA 5 OLY OLY GRF W/CARD BYP & VALVE SSP ECHO [address] TRANSESOP 5 A HAG R-T ASSOCIATE 2D W/PRB S PSC IMG ACQUISJ I&R DOP [address] ECHOCARD 5 A COLOR ASSOCIATE FLOW [place] [address] KAHLIL PICHARDO SURG 5 [facility] PATHOLOGY CLINIC PSC GROSS&MANJIT ROSCOPIC EXAM INITIAL 99103 ME IV EM IV INPATIENT 5 OLY OLY CONSULT NEW/ESTAB PT [address] ANGIO 23845 [place] AYOOB AND ABD&PLVIS 5 MEDICAL CN[facility] SERV MTRL W/[place] [address] [place] AYOOB AND ANGIOGRAP 5 MEDICAL HY [...] AT EQUIPME EQUIPME PRS FLW RATE BLOOD 67751 LANDEN SCHUSTER COUNT 5 [facility] COMPLETE INC INC AUTO&[place] [address] LANDEN SCHUSTER FREE 5 [facility] [place] [address] LANDEN SCHUSTER GAMMAGLOB 5 MEM HOS[facility] ULIN IGE INC INC PRESSURIZ 46272 FERMÍN FERMÍN ED/NONPRE 5 ALTHEA ALTHEA SSURIZED INHALATIO N TREATMENT PERCUTANE 63590 FERMÍN FERMÍN OUS TESTS 5 ALTHEA ALTHEA W/ALLERGE PHYLICIA EXTRACTS BRNCDILAT 86976 FERMÍN FERMÍN RSPSE 5 ALTHEA ALTHEA SPMTRY PRE&[place] [address] LANDEN SCHUSTER THYROID 5 MEM H[facility] STIMULATI INC INC NG HORMONE TSH 25 10070 LANDEN SCHUSTER HYDROXY 5 [facility] INCLUDES INC INC FRACTIONS IF PERFORMED CYANOCOBA 10663 LANDEN SCHUSTER JOSE RAFAEL 5 [facility] VITAMIN INC INC B-12 HEADGEAR A7035 [facility] NEW USED 5 HOME HOME W/POSITIV MEDICAL MEDICAL E AIRWAY EQUIPME EQUIPME PRESSURE DEVICE SEDIMENTA 80510 LANDEN SCHUSTER TION RATE 5 MEM [facility] RBC INC INC NON-AUTOM ATED ADMN SET A7005 YOUR YOUR W/SM VOL 5 PHARMACY PHARMACY [facility] NEBULIZR NON-DISPB L FULL FACE A7030 [facility] NEW MASK 5 HOME HOME USED MEDICAL MEDICAL W/POS EQUIPME EQUIPME ARWAY PRESS DEVICE EA C-REACTIV 82046 LANDEN LANDEN E PROTEIN 5 [facility] INC INC ANTIBODY 20246 LANDEN SCHUSTER DIPHTHERI 5 [facility] A INC INC ANTIBODY 52044 LANDEN SCHUSTER TETANUS 5 [facility] INC INC RADIOLOGI 05192 LANDEN SCHUSTER C EXAM 5 [facility] CHEST 2 INC INC VIEWS FRONTAL&L ATERAL ANTIBODY 91526 LANDEN SCHUSTER BACTERIUM 5 [facility] NOT INC INC ELSEWHERE SPECIFIED ANTIBODY 74885 LANDEN SCHUSTER RUBELLA 5 [facility] INC INC HEMAGGLUT 96858 LANDEN SCHUSTER INATION 5 [facility] INHIBITIO INC INC N TEST ERICKA CULTURE 62153 LANDEN SCHUSTER FNGI 5 [facility] MOLD/YEAS INC INC T PRSMPTV OTH XCPT BLOOD COMPLEMEN 07113 LANDEN SCHUSTER T TOTAL 5 [facility] HEMOLYTIC INC INC CUL BACT 45850 LANDEN SCHUSTER XCPT 5 [facility] URINE INC INC BLOOD/STO OL AEROBIC ISOL GAMMAGLOB 02201 LANDEN SCHUSTER ULIN 5 [facility] IMMUNOGLO INC INC BULIN SUBCLASSE S NITRIC 55686 FERMÍN FERMÍN OXIDE 5 ALTHEA [place] GAS DETERMINA TION COMPREHEN 75621 LANDEN SCHUSTER SIVE 5 [facility] METABOLIC INC INC PANEL COLLECTIO 85758 LANDEN LANDEN N VENOUS 5 [facility] BLOOD INC INC VENIPUNCT URE SMR PRIM 04800 LANDEN SCHUSTER SRC 5 MEM HOS[facility] MEM [...] AT EQUIPME EQUIPME PRS FLW RATE BRNCDILAT 03804 FERMÍN FERMÍN RSPSE 4 [place]THEA [place] SPMTRY PRE&POST- BRNCDILAT ADMN PRESSURIZ 37064 FERMÍN FERMÍN ED/NONPRE 4 [place]THE[place] SSURIZED [...] AT EQUIPME EQUIPME PRSC FLW RATE CYSTO 94899 [facility] W/SIMPLE 4 [place] LIZZY REMOVAL ADULT & STONE & PED STENT ECG 95135 PEDRO RICHEY RICHEY PEDRO ROUTINE 4 MD ECG CONSULTIN W/LEAST G SRV 12 LDS I&R ONLY O2 CONC 1 E1390 [facility] [place] 4 HOME HOME 85%/>02 MEDICAL MEDICAL CONC AT EQUIPME EQUIPME PRSC FLW RATE DILATION 81471 [facility] NEPHROSTO 4 [facility] MY/URETER ADULT & /URETHRA PED RS&I CYSTO 94071 [facility] W/URETERO 4 [place] LIZZY SCOPY ADULT & W/LITHOTR PED IPSY CYSTO 17537 [facility] W/INSERT 4 [facility] LIZZY URETERAL ADULT & STENT PED ANES 21501 [place] JOINER CHAVEZ TRURL 4 ANESTHESI FRAGMNTJ A GROUP MANJ&/RMV PS L URETERAL CALCULUS RADIOLOGI 54703 LANDEN SCHUSTER C EXAM 4 [facility] CHEST 2 INC INC VIEWS FRONTAL&L ATERAL C-REACTIV 64645 LANDEN SCHUSTER E PROTEIN 4 [facility] INC INC CYANOCOBA 14106 LANDEN SCHUSTER JOSE RAFAEL 4 [facility] VITAMIN INC INC B-12 25 19729 LANDEN SCHUSTER HYDROXY 4 [facility] INCLUDES INC INC FRACTIONS IF PERFORMED SEDIMENTA 75432 LANDEN SCHUSTER TION RATE 4 [facility] RBC INC INC NON-AUTOM ATED COMPREHEN 66710 LANDEN SCHUSTER SIVE 4 [facility] METABOLIC INC INC PANEL GAMMAGLOB 27388 LANDEN SCHUSTER ULIN 4 [facility] IMMUNOGLO INC INC BULIN SUBCLASSE S ANTIBODY 93925 LANDEN SCHUSTER BACTERIUM 4 [facility] [place] [address] LANDEN SCHUSTER GAMMAGLOB 4 [facility] [place] [address] LANDEN SCHUSTER FREE 4 [facility] [place] [address] LANDEN SCHUSTER THYROID 4 [facility] STIMULATI INC INC NG HORMONE TSH BLOOD 45263 LANDEN SCHUSTER COUNT 4 [facility] COMPLETE INC INC AUTO&AUTO DIFRNTL WBC PRESSURIZ 06285 FERMÍN FERMÍN ED/NONPRE 4 [place] SSURIZED INHALATIO N TREATMENT BRNCDILAT 22406 FERMÍN FERMÍN RSPSE 4 [place] SPMTRY PRE&POST- BRNCDILAT ADMN O2 CONC 1 E1390 [facility] NEW GABRIEL[place] PORT 4 HOME HOME 85%/>02 MEDICAL MEDICAL CONC AT EQUIPME EQUIPME PRS FLW RATE O2 CONC 1 E1390 [facility] [place] 3 HOME HOME 85%/>02 MEDICAL MEDICAL CONC AT EQUIPME EQUIPME PRS FLW RATE O2 CONC 1 E1390 [facility] PORT 3 HOME HOME 85%/>02 MEDICAL [...] YOUR YOUR W/SM VOL 3 [facility] NON-DISPB L PRESSURIZ 13418 FERMÍN FERMÍN ED/NONPRE 3 ALTHEA ALTHEA SSURIZED INHALATIO N TREATMENT BRNCDILAT 64344 FERMÍN FERMÍN RSPSE 3 [place]THEA [place] SPMTRY [...] EQUIPME EQUIPME REPLACEME NT ONLY EACH ANES 97241 [facility] XTRPRTL 3 ANESTHESI AN LOWER ABD A GROUP UR TRACT PS RENAL DON NFRCT INJECTION J1100 [facility] 3 N N [facility]ONE [facility] HOSPITA SODIUM PHOSPHATE 1 MG INJECTION J2001 [facility] 3 N N [facility] HCL HOS[facility]ITA HOSPITA INTRAVENO US INFUS 10 MG INJECTION J2710 [facility] 3 N N [facility] NE HOSPITA HOSPITA METHYLSUL FATE UP TO 0.5 MG INJECTION J3010 [facility] FENTANYL 3 N N [facility] 0.1 MG HOSPITA HOSPITA INJECTION J1580 [facility] 3 N N [facility] HOSP[facility] HOSPITA GENTAMICI N UP TO 80 MG INJECTION J2370 [facility] 3 N N [facility]PH [facility] RINE HCL HOSPITA HOSPITA UP TO 1 ML INJECTION J2405 [facility] 3 N N [facility] HOS[facility]ITA HOSPITA PER 1 MG PYELOPLAS 11486 [facility] TY SIMPLE 3 N N [facility] HOSP[facility] HOSPITA LAPAROSCO 45952 [facility] PY 3 [place] LIZZY RADICAL ADULT & NEPHRECTO PED MY ECG 83169 [facility] ROUTINE 3 N N ECG [facility] W/LEAST HOSPITA HOSPITA 12 LDS TRCG ONLY W/O I&R COLLECTIO 78313 [facility] N VENOUS 3 N N BLOOD [facility] VENIPUNCT HOSPITA HOSPITA URE COMPREHEN 98624 [facility] SIVE 3 N N METABOLIC [facility] PANEL HOSPITA HOSPITA URNLS DIP 09034 [facility] 3 N N STICK/TAB [facility] LET HOSPITA HOSPITA REAGENT AUTO MICROSCOP Y BLOOD [id number] [place] [address] COUNT 3 N N COMPLETE [facility] AUTO&AUTO [place] [address] LANDEN SCHUSTER INFUSION 3 [facility] THERAPY/P INC INC ROPHYLAXI S /DX 1ST TO 1 HR EGD 00140 LANDEN SCHUSTER TRANSORAL 3 [facility] BIOPSY INC INC SINGLE/MU LTIPLE URINE 00359 LANDEN SCHUSTER 3 [facility] TEST INC INC VISUAL COLOR CMPRSN METHS ANES 29066 [facility] UPPER GI 3 ANESTH ENDOSCOPY OF THE PROXIMAL BLUE TO DUODENUM SPECIAL 97216 PATHOLOGY CRISTINA STAIN 3 & OLY GROUP 1 CYTOLOGY MICROOR[place] LAB NISNC I&[place] [address] LANDEN SCHUSTER INFUSION 3 [facility] THERAPY INC [place] [address] PATHOLOGY CRISTINA SURG 3 & OLY PATHOLOGY CYTOLOGY LAB GROSS&MANJIT ROSCOPIC EXAM O2 CONC 1 E1390 [facility] [place] 3 HOME HOME 85%/>02 MEDICAL MEDICAL CONC AT EQUIPME EQUIPME PRSC FLW RATE DSTR 13550 ERICA VASCELLO NROLYTC 3 VASCELLO ALONDRA NANO AGEE [facility] PARVERTEB FCT ADDL CRVCL/THO RA DSTR 28118 ERICA VASCELLO NROLYTC 3 VASCELLO ALONDRA NANO AGEE PSC PARVERTEB FCT SNGL CRVCL/THO RA MODERATE 04469 ERICA VASCELLO SEDATJ 3 VASCELLO ALONDRA SOULEYMANE AGEE PSC PHYS/QHP 5/>YRS INIT 30 MIN SPMTRY 42578 FERMÍN FERMÍN W/VC 3 ALTHEA ALTHEA EXPIRATOR Y ANA MARIA W/WO MXML VOL VNTJ BOTULINUM J0585 PENTECOSTALISM JONEL TOXIN 3 NEUROLOGY [facility] PER UNIT BRIANNA CHEMODERV 89910 PENTECOSTALISM JONEL ATE 3 NEUROLOGY [facility] FACIAL/TR CENTER IGEM/CERV BRIANNA MUSC MIGRAINE O2 CONC 1 E1390 [facility] [place] 3 HOME HOME 85%/>02 MEDICAL MEDICAL CONC AT EQUIPME EQUIPME [facility] FLW RATE MODERATE 70387 ERICA VASCELLO SEDATJ 3 VASCELLO ALONDRA SAME PSC PHYS/QHP 5/>YRS INIT 30 MIN NJX 03892 ERICA VASCELLO DX/THER 3 VASCELLO ALONDRA AGT PVRT PSC FACET JT CRV/THRC 2ND LEVEL NJX 86613 ERICA VASCELLO DX/THER 3 VASCELLO ALONDRA AGT PVRT PSC FACET JT CRV/THRC 1 LEVEL O2 CONC 1 E1390 [facility] [place] 2 HOME HOME 85%/>02 MEDICAL MEDICAL CONC AT EQUIPME EQUIPME [facility] FLW RATE O2 CONC 1 E1390 [facility] [place] 2 HOME HOME 85%/>02 MEDICAL MEDICAL CONC AT EQUIPME EQUIPME [facility] FLW RATE HEADGEAR A7035 [facility] NEW USED 2 HOME HOME W/POSITIV MEDICAL MEDICAL E AIRWAY EQUIPME EQUIPME PRESSURE DEVICE ELECTRICA A4595 J & L J & L L 2 HOME HOME STIMULATO MEDICAL MEDICAL R EQUIPMENT EQUIPMENT SUPPLIES 2 LEAD PER MONTH FULL FACE A7030 [facility] NEW MASK 2 HOME HOME USED MEDICAL MEDICAL W/POS EQUIPME EQUIPME ARWAY PRESS DEVICE EA PRESSURIZ 59044 FERMÍN FERMÍN ED/NONPRE 2 ALTHEA ALTHEA SSURIZED INHALATIO N TREATMENT BRNCDILAT 60597 FERMÍN FERMÍN RSPSE 2 ALTHEA ALTHEA SPMTRY PRE&POST- BRNCDILAT ADMN BOTULINUM J0585 PENTECOSTALISM JONEL TOXIN 2 NEUROLOGY [facility] PER UNIT BRIANNA O2 CONC 1 E1390 [facility] [place] 2 HOME HOME 85%/>02 MEDICAL MEDICAL CONC AT EQUIPME EQUIPME [facility] FLW RATE IMMUNOASS 36610 [facility] AY 2 DIAGNOSTI DIAGNOSTI [facility] QUANTITAT JADON NOS C-REACTIV 50950 [facility] E PROTEIN 2 DIAGNOSTI DIAGNOSTI [facility] CREATINE 85406 [facility] KINASE 2 DIAGNOSTI DIAGNOSTI TOTAL CS CS COLLECTIO 65264 [facility] N VENOUS 2 DIAGNOSTI DIAGNOSTI BLOOD CS CS VENIPUNCT URE SEDIMENTA 45346 [facility] TION RATE 2 DIAGNOSTI DIAGNOSTI RBC CS CS AUTOMATED CYCLIC 80149 [facility] CITRULLIN 2 DIAGNOSTI DIAGNOSTI ATED CS CS PEPTIDE ANTIBODY GAMMAGLOB 03733 LANDEN SCHUSTER ULIN 2 [facility] IMMUNOGLO INC INC BULIN SUBCLASSE S 25 02484 LANDEN LANDEN HYDROXY 2 [facility] INCLUDES INC INC FRACTIONS IF PERFORMED RADIOLOGI 47480 LANDEN SCHUSTER C EXAM 2 [facility] CHEST 2 INC INC VIEWS FRONTAL&[place] [address] LANDEN LANDEN GAMMAGLOB 2 [facility] ULIN IGA [place] [address] LANDEN LANDEN GAMMAGLOB 2 [facility] [place] [address] LANDEN LANDEN THYROID 2 [facility] STIMULATI INC INC NG HORMONE TSH BLOOD 82465 LANDEN SCHUSTER COUNT 2 [facility] COMPLETE INC INC AUTO&AUTO DIFRNTL WBC BRNCDILAT 25388 FERMÍN FERMÍN RSPSE 2 [place] SPMTRY PRE&POST- BRNCDILAT ADMN PRESSURIZ 48596 FERMÍN FERMÍN ED/NONPRE 2 [place]THE[place] SSURIZED INHALATIO N TREATMENT ADMN SET A7005 MD MED MT MED W/SM VOL 2 EQUIPMENT EQUIPMENT NONFILTR INC INC NEBULIZR NON-DISPB L NEBULIZER E0570 MD MED MT MED WITH 2 EQUIPMENT EQUIPMENT COMPRESSO INC INC R DEMO&/GABI 85267 FERMÍN FERMÍN L OF PT 2 [place]THE[place] UTILIZ AERSL GEN/NEB/I NHLR/IP INJECTION 90752 ERICA VASCELLO 2 VASCELLO ALONDRA SINGLE/ML MD SCHWARTZ T TRIGGER POINT 3/> MUSCLES FLUOROSCO 81617 ERICA VASCELLO PIC 2 VASCELLO ALONDRA GUIDANCE MD PSC NEEDLE PLACEMENT ADD ON IIV3 96317 LANDEN SCHUSTER VACCINE 2 [facility] VIRUS 0.5 ML DOSAGE IM USE [facility]ROGRAPHY 03145 [facility] W/WO 2 MEDICAL BELINDA KUB W/WO IMAGING TOMOGRAPH ASS Y CREATININ 98470 LANDEN SCHUSTER E BLOOD 2 [facility] [place] [place] [address] LANDEN SCHUSTER UREA 2 [facility] NITROGEN INC INC QUANTITAT JADON CONTINUOU E0601 SH[facility] NEW S 2 HOME HOME POSITIVE MEDICAL MEDICAL AIRWAY EQUIPME EQUIPME PRESSURE DEVICE CYSTO 46883 [facility] SM[facility] W/SIMPLE 2 [place] LIZZY REMOVAL ADULT & STONE & PED STENT CYSTO 42245 C[facility] W/URETERO 2 [place] LIZZY SCOPY ADULT & W/RMVL/MA PED [place] STONES LEVEL III 36318 PATHOLOGY SALAZAR VAN SURG 2 & PATHOLOGY CYTOLOGY LAB GROSS&MANJIT ROSCOPIC EXAM CYSTO 59396 [facility] W/INSERT 2 [facility] BALL URETERAL ADULT & STENT PED ANES 24[address] [place] [address]AD TRURL 2 ANESTHESI AN FRAGMNTJ A GROUP MANJ&/RMV PS L URETERAL CALCULUS DILATION 68812 C[facility] SM[facility] NEPHROSTO 2 [facility] MY/URETER ADULT & /URETHRA PED RS&I ANES 72056 [place] VANESSA MEDHAT LITHOTRP 2 ANESTHESI XTRCORP A GROUP SHOCK PS WAVE W/O WATER BATH FLUOROSCO 17210 CENTRAL SMITH PY SPX UP 2 [facility] LIZZY TO 1 ADULT & HOUR PED PHYS/QHP TIME ECG 76775 PEDRO RICHEY RICHEY PEDRO ROUTINE 2 MD ECG CONSULTIN W/LEAST G SERV 12 LDS I&R ONLY CYSTO 64168 CENTRAL SMITH W/INSERT 2 [facility] BALL URETERAL ADULT & STENT PED RADEX 36660 CNTR[place] SCALF OLY ABDOMEN 1 2 RADIOLOGY ANTEROPOS TERIOR VIEW LITHOTRIP 96330 CENTRAL SMITH SY 2 [place] LIZZY XTRCORP ADULT & SHOCK PED WAVE URNLS DIP 80831 LANDEN LANDEN 2 [facility] STICK/TAB INC INC LET REAGENT AUTO MICROSCOP Y URINE 24660 LANDEN SCHUSTER 2 [facility] TEST INC INC VISUAL COLOR CMPRSN METHS BLOOD 57733 LANDEN SCHUSTER COUNT 2 [facility] COMPLETE INC INC AUTO&AUTO DIFRNTL WBC CONTINUOU E0601 [facility] NEW S 2 HOME HOME POSITIVE MEDICAL MEDICAL AIRWAY EQUIPME EQUIPME PRESSURE DEVICE BLOOD 26245 LANDEN SCHUSTER COUNT 2 [facility] COMPLETE INC INC AUTO&[place] [address] LANDEN SCHUSTER AMYLASE 2 [facility] INC INC THERAPEUT 06914 LANDEN SCHUSTER IC 2 [facility] INJECTION INC INC IV PUSH EACH NEW DRUG URINE 52131 LANDEN SCHUSTER 2 [facility] TEST INC INC VISUAL COLOR CMPRSN METHS AMB A0427 [facility] SERVICE 2 [facility] SERVICE SERVICE EMERGENCY TRANSPORT LEVEL 1 CULTURE 27617 [facility]ERIAL [facility] INC INC QUANTTATI VE COLONY COUNT URINE CULTURE 52555 [facility] SCHUSTER BCT 2 [facility] ISOL&PRSM INC INC PTV ID ISOLATE EA URINE URNLS DIP 95282 [facility]ER [facility] STICK/TAB INC INC LET REAGENT AUTO MICROSCOP Y SUSCEPTIB 21972 LANDEN SCHUSTER LTY STDY 2 [facility] ANTIMICRB INC INC IAL MICRO/AGA R DILUTJ GROUND A0425 [facility] MILEAGE 2 AMB[facility]ANCE AMBULANCE PER SERVICE SERVICE STATUTE MILE 3D 92012 LANDEN SCHUSTER RENDERING 2 [facility] W/INTERP& POSTPROC DIFF WORK STATION COMPREHEN 13989 L[facility] SCHUSTER SIVE 2 [facility] [place] [address] LANDEN SCHUSTER ABDOMEN & 2 [facility] PELVIS INC INC W/O CONTRAST MATERIAL THER 94062 LANDEN SCHUSTER PROPH/DX 2 [facility] NJX IV INC INC PUSH SINGLE/1S [place] SBST/[place] [address] LANDEN SCHUSTER LIPASE 2 [facility] MEM [...] MEDICAL AIRWAY EQUIPME EQUIPME PRESSURE DEVICE DSTR 91703 ERICA ERICA NROLYTC 2 VASCELLO VASCELLO AGNT [facility] PSC PARVERTEB FCT ADDL CRVCL/THO RA DSTR 77949 ERICA ERICA NROLYTC 2 VASCELLO VASCELLO AGNT MD EFREN AGEE PSC PARVERTEB FCT SNGL CRVCL/THO RA CONTINUOU E0601 [facility] NEW S 2 HOME HOME POSITIVE MEDICAL MEDICAL AIRWAY EQUIPME EQUIPME PRESSURE DEVICE NJX 43718 ERICA ERICA DX/THER 2 VASCELLO VASCELLO AGT PVRT [facility] PSC FACET JT CRV/THRC 2ND LEVEL NJX 79256 ERICA ERICA DX/THER 2 VASCELLO VASCELLO AGT PVRT MD EFREN AGEE PSC FACET JT CRV/THRC 1 LEVEL CONTINUOU E0601 [facility] NEW S 2 HOME HOME POSITIVE MEDICAL MEDICAL AIRWAY EQUIPME EQUIPME PRESSURE DEVICE NJX 67270 ERICA ERICA DX/THER 2 VASCELLO VASCELLO AGT PVRT MD EFREN AGEE PSC FACET JT CRV/THRC 1 LEVEL NJX 02059 ERICA ERICA DX/THER 2 VASCELLO VASCELLO AGT PVRT MD EFREN AGEE PSC FACET JT CRV/THRC 2ND LEVEL CUSHN A7032 [facility] NEW NASAL 2 HOME HOME MASK MEDICAL MEDICAL INTERFACE EQUIPME EQUIPME REPLACEME NT ONLY EACH DSTR 73301 ERICA ERICA NROLYTC 2 VASCELLO VASCELLO NANO SCHWARTZ PARVERTEB FCT ADDL LMBR/SACR AL DSTR 89166 ERICA ERICA NROLYTC 2 VASCELLO VASCELLO NANO SCHWARTZ MD [facility] PARVERTEB FCT SNGL LMBR/SACR AL MODERATE 73375 ERICA ERICA SEDATJ 2 VASCELLO VASCELLO SOULEYMANE SCHWARTZ MD [facility] PHYS/QHP 5/>YRS INIT 30 MIN CONTINUOU E0601 SH[facility] NEW S 2 HOME HOME POSITIVE MEDICAL MEDICAL AIRWAY EQUIPME EQUIPME PRESSURE DEVICE DSTR 18964 ERICA ERICA NROLYTC 2 VASCELLO VASCELLO NANO SCHWARTZ MD [facility] PARVERTEB FCT SNGL LMBR/SACR AL DSTR 06556 ERICA ERICA NROLYTC 2 VASCELLO VASCELLO NANO SCHWARTZ MD [facility] PARVERTEB FCT ADDL LMBR/SACR AL BASIC 49887 LANDEN SCHUSTER METABOLIC 2 [facility] PANEL INC INC CALCIUM TOTAL RADIOLOGI 81518 [facility] 2 MEDICAL MEDICAL EXAMINATI IMAGING IMAGING ON CHEST ASS ASS SINGLE VIEW FRONTAL CREATINE 74468 LANDEN MCKEONON KINASE 2 [facility] [place] [address] LANDEN SCHUSTER TROPONIN 2 [facility] QUANTITAT INC INC JADON BLOOD 73604 LANDEN SCHUSTER COUNT 2 [facility] COMPLETE INC INC AUTO&AUTO DIFRNTL WBC CREATINE 62583 LANDEN SCHUSTER KINASE MB 2 [facility] FRACTION INC INC ONLY ECG 58247 GRISELDA RECIO LIZZETH ROUTINE 2 EMERGENCY ECG SERVICES W/LEAST 12 LDS I&R ONLY NJX 94653 ERICA ERICA DX/THER 2 VASCELLO VASCELLO AGT KIMBERLEE AGEE [facility] PSC FACET JT LMBR/SAC 3+ LEVEL NJX 58981 ERICA ERICA DX/THER 2 VASCELLO VASCELLO AGT PVRT [facility] PSC FACET JT LMBR/SAC 1 LEVEL NJX 47978 ERICA ERICA DX/THER 2 VASCELLO VASCELLO AGT PVRT [facility] PSC FACET JT LMBR/SAC 2ND LEVEL CONTINUOU [...] E AIRWAY EQUIPME EQUIPME PRESSURE DEVICE POLYSOM 42987 LANDEN SCHUSTER 6/>YRS 1 [facility] SLEEP 4/> INC INC ADDL SHWETHA ATTND IIV3 38783 LANDEN SCHUSTER VACCINE 1 [facility] VIRUS 0.5 ML DOSAGE IM USE WRIST L3908 SHAQ NEW HAND 1 HOME HOME ORTHOSIS MEDICAL MEDICAL EXT EQUIPME EQUIPME CONTROL COCK-UP PREFAB RADEX 04724 LANDEN SCHUSTER WRIST 1 [facility] COMPLETE INC INC MINIMUM 3 VIEWS RADEX 15565 LANDEN SCHUSTER WRIST 1 [facility] COMPLETE INC INC MINIMUM 3 VIEWS RADIOLOGI 20507 LANDEN SCHUSTER C 1 [facility] EXAMINATI INC INC ON KNEE 1/2 [place] [address] [facility] 1 PHYSICIAN JAM RADIAL&UL S GROUP JOCE SHAFT FRACTURES W/O MAN SLINGS A4565 KEVIN L.P. KEVIN L.P. 1 3D 72554 LANDEN SCHUSTER RENDERING 1 [facility] INC INC W/INTERP& POSTPROC DIFF WORK STATION RADIOLOGI 67856 LANDEN SCHUSTER C 1 [facility] EXAMINATI INC INC ON KNEE 3 VIEWS CLTX DSTL 83205 GRISELDA SALGADO BAB RADIAL 1 EMERGENCY FX/EPIPHY SERVICES SL SEP W/O MANJ RADEX 65983 [facility] JOVANNY WRIST 1 MEDICAL BELINDA COMPLETE IMAGING MINIM[place] [address] [place] [address] LANDEN SCHUSTER MAXILLOFA 1 [facility] CIAL W/O INC INC CONTRAST MATERIAL RADEX 33149 LANDEN SCHUSTER WRIST 2 1 [facility] [place] [address] LANDEN SCHUSTER INFUSION 1 [facility] THER INC INC PROPH ADDL [place] L [place] [address] LANDEN SCHUSTER INFUSION 1 [facility] THERAPY/P INC INC ROPHYLAXI S /DX 1ST TO 1 HR BLOOD 10888 LANDEN SCHUSTER COUNT 0 [facility] COMPLETE INC INC AUTO&AUTO DIFRNTL WBC MRI BRAIN 42520 JAZMINE MADRIDUTCHER BRAIN 0 JOVANNY BELINDA STEM W/O CONTRAST MATERIAL RHEUMATOI 75356 LANDEN SCHUSTER D FACTOR 0 [facility] QUANTITAT INC INC JADON ANTINUCLE 81429 LANDEN SCHUSTER AR 0 [facility] ANTIBODIE INC INC S CARLOS C-REACTIV 91954 LANDEN SCHUSTER E PROTEIN 0 [facility] INC INC CREATINE 59636 LANDEN SCHUSTER KINASE 0 [facility] TOTAL INC INC PROTEIN 27253 LANDEN SCHUSTER ELECTROPH 0 [facility] ORETIC INC INC FRACTJ&QU ANTJ SERUM COMPUTER- 235[address] [place] JOVANNY AIDED 0 MEDICAL BELINDA DETECTION IMAGING ASS SCREENING MAMMOGRAP HY SCREENING G0202 [place] JOVANNY 0 MEDICAL BELINDA MAMMOGRAP IMAGING HY JERRY [place] [address] LANDEN SCHUSTER IRON 0 [facility] INC INC BLOOD 81080 LANDEN SCHUSTER COUNT 0 [facility] COMPLETE INC INC AUTO&AUTO DIFRNTL WBC BASIC 97819 LANDEN SCHUSTER METABOLIC 0 [facility] [place] [address] LANDEN LANDEN MAGNESIUM 0 [place] [address] LANDEN LANDEN FERRITIN 0 [facility] INC INC IRON 33106 LANDEN SCHUSTER BINDING 0 [facility] CAPACITY INC INC POTASSIUM 80951 LANDEN LANDEN URINE 0 [place] [address] PATHOLOGY PATHOLOGY SURG 0 & & PATHOLOGY CYTOLOGY CYTOLOGY LAB LAB GROSS&[place] [address] LANDEN LANDEN INFUSION 0 [facility] THERAPY INC INC PROPHYLAX IS/DX EA HOUR URINE 96155 LANDEN SCHUSTER 0 [facility] TEST INC INC VISUAL COLOR CMPRSN METHS COLSC FLX 39983 [place] KELI ANT W/RMVL 0 MEDICAL OF TUMOR SERV [place] [address] LANDEN SCHUSTER INFUSION 0 [facility] THERAPY/P INC INC ROPHYLAXI S /DX 1ST TO 1 HR ENDOSCOPI 4542 LANDEN SCHUSTER C 0 [facility] POLYPECTO INC INC MY OF LARGE INTESTINE [ENDOSCOP 4836 LANDEN SCHUSTER IC] 0 [facility] POLYPECTO INC INC MY OF RECTUM IIV3 62366 LANDEN SCHUSTER VACCINE 0 [facility] VIRUS 0.5 ML DOSAGE IM USE SPECIAL 01295 PATHOLOGY PATHOLOGY STAIN 0 & & GROUP 1 CYTOLOGY CYTOLOGY MICROORGA LAB LAB [facility] I&R EGD 98615 SAMIA DICKEY ANT TRANSORAL 0 MEDICAL BIOPSY SERV SINGLE/[place] [address] LANDEN SCHUSTER INFUSION 0 [facility] THERAPY INC [place] [address] PATHOLOGY PATHOLOGY SURG 0 & & PATHOLOGY CYTOLOGY CYTOLOGY LAB LAB GROSS&MANJIT ROSCOPIC EXAM ESOPHAGOG 4516 LANDEN SCHUSTER ASTRODUOD 0 [facility] [place] [address] LANDEN SCHUSTER INFUSION 0 [facility] THERAPY/P INC INC ROPHYLAXI S /DX 1ST TO 1 HR BLOOD 83931 LANDEN SCHUSTER COUNT 0 [facility] COMPLETE INC INC AUTO&AUTO DIFRNTL WBC GONADOTRO 93577 LANDEN SCHUSTER PIN 0 [facility] CHORIONIC INC INC QUALITATI VE BLOOD 93602 LANDEN SCHUSTER COUNT 0 [facility] COMPLETE INC INC AUTO&AUTO DIFRNTL WBC BLOOD 19227 LANDEN SCHUSTER COUNT 0 [facility] COMPLETE INC INC AUTO&[place] [address] [facility] 0 MED[facility] BELINDA GLUCOSE IMAGING W/SM ASS INTEST FOLLW-THR U POTASSIUM 34227 LANDEN SCHUSTER SERUM 0 [facility] PLASMA/WH INC INC OLE BLOOD RADEX 72221 LANDEN SCHUSTER UPPER GI 0 [facility] W/WO INC INC GLUCAGON/ DELAY IMAGES W/KUB BLOOD 54749 LANDEN SCHUSTER OCCULT 0 [facility] PEROXIDAS INC INC E ACTV QUAL FECES 1-3 SPEC POTASSIUM 35847 LANDEN SCHUSTER SERUM 0 [facility] PLASMA/WH INC INC OLE BLOOD CYANOCOBA 68967 LANDEN SCHUSTER JOSE RAFAEL 0 [facility] VITAMIN INC INC B-12 [place] [address] LANDEN SCHUSTER FOLIC 0 [facility] [place] [address] LANDEN SCHUSTER THYROID 0 [facility] STIMULATI INC INC NG HORMONE TSH BLOOD 08346 LANDEN SCHUSTER COUNT 0 [facility] COMPLETE INC INC AUTO&[place] [address] LANDEN MCKEONON INFUSION 9 [facility] THERAPY/P INC INC ROPHYLAXI S /DX 1ST TO 1 HR THERAPEUT 20401 LANDEN SCHUSTER IC 9 [facility] INJECTION INC INC IV PUSH EACH NEW DRUG OTH & OPN 5304 LANDEN SCHUSTER REP 9 [facility] INDIRECT INC INC ING HERNIA W/GRAFT/P ROSTH ANESTHESI 08756 [facility], [place] HERNIA 9 ANESTH HAZEL A RE[place]IR [place] [address] LANDEN SCHUSTER INFUSION 9 [facility] THERAPY INC INC PROPHYLAX IS/DX EA HOUR RPR 1ST 58295 LANDEN MCKEONON INGUN 9 [facility] HRNA AGE INC INC 5 YRS/> INCARCERA SREE BASIC 44277 LANDEN SCHUSTER METABOLIC 9 [facility] PANEL INC INC CALCIUM TOTAL BLOOD 80274 LANDEN SCHUSTER COUNT 9 [facility] COMPLETE INC INC AUTO&AUTO DIFRNTL WBC GONADOTRO 91396 LANDEN MCKEONON PIN 9 [facility] CHORIONIC INC INC QUALITATI VE Encounters Encounter Start End Date Code Location Performer Type Date [facility] T [facility] - [facility] T OFFICE 42200 [facility]ASH HABASH OUTPATIEN 7 7 T NEW 45 MINUTES OFFICE 06133 [facility] OUTPATIEN 7 7 PHYSICIAN T VISIT S GROUP 25 MINUTES OFFICE 85378 L[facility]EN OUTPATIEN 7 7 [facility] T [facility]ISIT 5 INC MINUTES HOSPITAL L[facility] - 7 7 [facility] OUTPATIEN [facility] T OFFICE 38750 [facility] OUTPATI[facility] 7 7 PHYSICIAN T NEW 20 S GROUP MINUTES HOSP[facility] - 7 7 [facility] T HOSP[facility] L[facility] - 7 7 [facility] OUTPATIEN INC T HOSP[facility] - 7 7 [facility] L[facility] - 7 7 [facility]65 [facility] PHYSICIAN E S GROUP MEDICINE NEW PATIENT 40-64YRS HOSPITAL L[facility]EN - 7 7 [facility] OUTPATIEN [facility] T OFFICE 35734 [facility] OUTPATIEN 7 7 PHYSICIAN T VISIT S GROUP 40 MINUTES HOSPITAL [facility] - 7 7 [facility]PATIEN [facility] LANDEN - 7 7 [facility] - 7 7 [facility] OUTPATIEN [facility] T EMERGENCY 85674 LANDEN 7 7 [facility] T VISIT HIGH/URGE NT SEVERITY [facility]OSPITAL L[facility] - 7 7 [facility] OUTPATIEN [facility] T OFFICE 72645 [facility] 7 7 FAMILY T NEW 30 CARE MINUTES CENTER OFFICE 02018 [facility] 7 7 T VISIT 15 MINUTES [facility]OSPITAL [facility] - 7 7 [facility] OUTPATIEN [facility] T OFFICE 75324 [facility] OUTPATIEN 6 6 NURSE CK BING T VISIT PRACTITIO 40 NER GR MINUTES HOSPITAL [facility]ERS[facility] - 6 6 [facility] - 6 6 [facility] OUTPATIEN [facility] T OFFICE 28823 [facility] CONSULTAT 6 6 NURSE CK BING ION PRACTITIO NEW/ESTAB NER GR PATIENT 60 MIN OFFICE 41894 [facility] OLY OLY T VISIT 15 MINUTES EMERGENCY 75985 MONTERROSO MONTERROSO DEPT 5 5 JOSS JOSS VISIT HIGH SEVERITY& THREAT [facility] EMERGENCY 67361 [facility] DEMETRIO DEPT 5 5 VISIT HIGH SEVERITY& THREAT [facility] OFFICE 62182 FERMÍN KOVACS OUTPATIEN 5 5 ALTHEA ALTHEA T VISIT 40 MINUTES HOSPITAL [facility] - 5 5 [facility] OUTPATIEN INC T OFFICE 09024 MEÑO BAILEY 4 4 OLY OLY T VISIT 15 MINUTES OFFICE 03673 MEÑO BAILEY 4 4 OLY OLY T VISIT 15 MINUTES OFFICE 50850 MEÑO BAILEY 4 4 OLY OLY T VISIT 15 MINUTES OFFICE 80067 MEÑO BAILEY 4 4 OLY OLY T VISIT 15 MINUTES OFFICE 75135 FERMÍN DENSONURN OUTPATIEN 4 4 ALTEHA ALTHEA T VISIT 40 MINUTES OFFICE 80560 [facility] CONSULT[facility] 4 4 [place] LIZZY ION ADULT & NEW/ESTAB PED PATIENT 40 MIN Emergency TUAN Quintero MD (ER) 4 21:38 4 23:12 [facility] EMERGENCY 26375 GRISELDA QUINTERO DEPT 4 4 EMERGENCY MANJIT VISIT SERVICES HIGH SEVERITY& THREAT [facility] LANDEN - 4 4 [facility] OUTPATIEN INC T OFFICE 00470 FERMÍN KOVACS OUTPATIEN 4 4 ALTHEA ALTHEA T VISIT 40 MINUTES OFFICE 33925 MEÑO BAILEY 3 3 OLY OLY T VISIT 15 MINUTES OFFICE 21707 MEÑO BAILEY 3 3 OLY OLY T VISIT 15 MINUTES OFFICE 53310 FERMÍN KOVACS OUTPATIEN 3 3 ALTHEA ALTHEA T VISIT 40 MINUTES OFFICE 68949 ARTHRITIS MD ARTEMIO OUTPATIEN 3 3 AND DAVE Rogers VISIT OSTEOPORO 15 SIS C MINUTES HOME 49899 [facility] V[facility] EST 3 3 HOME PT HEALTH MOD-HI SEVERITY 40 MINUTES HOME [facility], 3 3 HOME OUTPATIEN HEALTH T HOME 52427 [facility] VISIT EST 3 3 HOME PT HEALTH MOD-HI SEVERITY 40 MINUTES HOME 28947 [facility] VISIT EST 3 3 HOME PT HEALTH MOD-HI SEVERITY 40 MINUTES HOME 24982 [facility] VISIT EST 3 3 HOME PT HEALTH MOD-HI SEVERITY 40 MINUTES [facility] 3 [facility] [place] [address] [facility] - 3 3 [facility] OFFICE 39954 [facility] OUTPATIEN 3 3 PHYSICIAN ALIREZA GUILLORY 30 S GROUP MINUTES OFFICE 90804 FERMÍN FERMÍN OUTPATIEN 3 3 ALTHEA OH T VISIT 25 MINUTES OFFICE 76776 ZACARIAS REMY OUTPATIEN 3 3 NEUROLOGY RAFAEL T VISIT CENTER 25 BRIANNA MINUTES OFFICE 81363 FERMÍN FERMÍN OUTPATIEN 2 2 ALTHEA OH T VISIT 25 MINUTES OFFICE 22975 ARTHRITIS MD ARTEMIO CONSULTAT 2 2 AND MAN ION OSTEOPORO NEW/ESTAB SIS C PATIENT 60 MIN [facility] - 2 2 [facility] OUTPATIEN INC T OFFICE 25381 FERMÍN FERMÍN OUTPATIEN 2 2 ALTHEA Rogers NEW 60 MINUTES OFFICE 15497 ERICA VASCELLO OUTPATIEN 2 2 VASCELLO ALONDRA T VISIT PSC 25 MINUTES HOSPITAL [facility] - 2 2 [facility] OUTPATIEN INC T OFFICE 81597 ZACARIAS REMY OUTPATIEN 2 2 HEALTH RAFAEL T VISIT MEDICAL 25 GROUP MINUTES OFFICE 56949 MEÑO JEFFRIESEN 2 2 OLY OLY T VISIT 25 MINUTES HOSPITAL [facility] - 2 2 [facility] OUTPATIEN INC T OFFICE 35737 [facility] 2 2 [facility] LI[facility] ION ADULT & NEW/ESTAB PED PATIENT 40 MIN OFFICE 98147 MEÑO BAILEY 2 2 OLY OLY T VISIT 15 MINUTES EMERGENCY 44742 GRISELDA QUINTERO DEPT 2 2 EMERGENCY EMERSON VISIT SERVICES HIGH SEVERITY& THREAT [facility] LANDEN - 2 2 [facility] OUTPATIEN INC T EMERGENCY 76618 LANDEN 2 2 [facility] DEPARTMEN INC T VISIT HIGH/URGE NT SEVERITY [facility]OSPITAL [facility] - 2 2 [facility] OUTPATIEN INC T EMERGENCY 39891 [facility] 2 2 [facility] DEPARTMEN INC T VISIT HIGH/URGE NT SEVERITY EMERGENCY 71144 GRISELDA MOREAU DEPT 2 2 EMERGENCY VISIT SERVICES HIGH SEVERITY& THREAT [facility] LANDEN - 1 1 [facility] OUTPATIEN INC T OFFICE 16240 MEÑO BAILEY 1 1 OLY OLY T VISIT 15 MINUTES HOSPITAL [facility] - 1 1 [facility]EN [facility] - 1 1 [facility] OUTPATIEN INC T OFFICE 73131 [facility]OSTALISMS[facility] REMY OUTPATIEN 1 1 NEUROLOGY RAFAEL T VISIT CENTER 25 BRIANNA MINUTES HOSPITAL L[facility] - 1 1 [facility]PATIEN [facility] LAND[facility] - 1 1 [facility] OUTPATIEN [facility] EMERGENCY 87447 LANDEN 1 1 [facility] DEPARTMEN [facility] T VISIT LOW/MODER SEVERITY EMERGENCY 46238 GRISELDA KELLY 1 1 EMERGENCY DEPARTMEN SERVICES T VISIT HIGH/URGE NT SEVERITY OFFICE 84384 MEÑO WILDER OUTPATIEN 1 1 OLY [facility] 30 MINUTES [facility] LANDEN - 1 1 [facility] OUTPATIEN [facility] LANDEN - 0 0 [facility]PATI[facility] LAND[facility] - 0 0 [facility] OUTPATIEN [facility] OFFICE 28722 PENTECOSTALISM JONEL OUTPATIEN 0 0 NEUROLOGY RAFAEL T VISIT CENTER 25 BRIANNA MINUTES [facility] LANDEN - 0 0 [facility]PATIEN [facility] L[facility] - 0 0 [facility]PAT[facility] LAND[facility] - 0 0 [facility] OUTPATIEN [facility] LANDEN - 0 0 [facility]PATIEN [facility] LANDEN - 0 0 [facility]PATI[facility] LAND[facility] - 0 0 [facility]PAT[facility] LANDEN - 0 0 [facility] L[facility] - 0 0 [facility] OUTPATIEN [facility] OFFICE 32295 PENTECOSTALISM JONEL CONSULTAT 0 0 NEUROLOGY RAFAEL ION CENTER NEW/ESTAB BRIANNA PATIENT 80 MIN [facility] - 0 0 [facility]PATIEN [facility] OFFICE 62247 DEANDRE CARRERA OUTPATIEN 0 0 SHARMAINE SHARMAINE T VISIT 15 MINUTES OFFICE 22562 DEANDRE CARRERA OUTPATIEN 0 0 SHARMAINE A SHARMAINE A T VISIT 15 MINUTES [facility] - 9 9 [facility] 9 [facility] OFFICE 52978 JUDIE DIMAS CONSULTAT 9 9 , LISA GONZALEZ ION NEW/ESTAB PATIENT 60 MIN OFFICE 20950 DEANDRE CARRERA OUTPATIEN 9 9 SHARMAINE A SHARMAINE A T VISIT 15 MINUTES OFFICE 90740 DEANDRE CARRERA OUTPATIEN 9 9 SHARMAINE A SHARMAINE A T VISIT 15 MINUTES OFFICE 97551 DEANDRE CARRERA OUTPATIEN 9 9 SHARMAINE A SHARMAINE A T VISIT 15 MINUTES
--- OUTSIDE RECORDS SUMMARY | 2017-01-06 02:53 | External Medical Summary Rpt | CCD ---
Author Author , MYRIAM SHEFFIELDELAINE Address Unknown Phone [email or web address] Care Team Providers Care Gasoline Engine Inspector Name Role Phone TERESO PHYLICIA, TERESO PHYLICIA Unavailable Unavailable MAYO GUTIERREZ, MAYO Unavailable Unavailable MD DAVE ROBLES AHMED, Unavailable Unavailable MD DAVE TIWARI JR, TE ESTEVEZ Unavailable Unavailable [facility], Unavailable Unavailable [facility] ARNOLD, ARNOLD Unavailable Unavailable ARNOLD, ARNOLD Unavailable Unavailable ARNOLD OLY, ARNOLD Unavailable Unavailable OLY ARNOLD OLY, ARNOLD Unavailable Unavailable OLY [facility] AND Unavailable Unavailable [facility], [facility] AYOOB AND, AYOOB AND Unavailable Unavailable [facility] Un[facility] Unavailable Unavailable [facility]ORATORIES, [facility] Unavailable Unavailable LAB[facility]ATORIES, [facility] Unavailable Unavailable CENTER, [facility], [facility] Unavailable Unavailable KELI ANT, KELI ANT Unavailable Unavailable [facility] Unavailable Unavailable SERVICE, [facility] Unavailable Unavailable SERVICE, [facility] EDISON DEMETRIO, EDISON DEMETRIO Unavailable Unavailable EDISON DEMETRIO, EDISON DEMETRIO Unavailable Unavailable SMITH LIZZY, Unavailable Unavailable SMITH LIZZY [facility] Unavailable Unavailable ADULT & PED, [facility], Unavailable Unavailable [facility] RICHEY PEDRO, RICHEY PEDRO Unavailable Unavailable JOVANNY BELINDA, Unavailable Unavailable JOVANNY BELINDA BUCK, BUCK Unavailable Unavailable JAZMINE C JOVANNY, Unavailable Unavailable JAZMINE C JOVANNY [facility] Unavailable [place]available [place], [facility] [place] [facility] Un[place] [facility] [place] [facility] Unavailable Unavailable [facility] Unavailable Unavailable JONEL RAFAEL, Unavailable Unavailable JONEL RAFAEL [facility], Unavailable Unavailable [facility] EM IV OLY, EM Unavailable Unavailable IV OLY FRYMAN, FRYMAN Unavailable Unavailable SHIREEN, SHIREEN Unavailable Unavailable SHIREEN MANJIT, SHIREEN Unavailable Unavailable MANJIT [facility] Unavailable Unavailable HOSPITA, [facility] ALEX WAY, ALEX WAY Unavailable Unavailable RECIO LIZZETH, RECIO LIZZETH Unavailable Unavailable HABASH, HABASH Unavailable Unavailable HABASH, HABASH Unavailable Unavailable HARPEL, HARPEL Unavailable Unavailable SIMEON ISHMAEL, SIMEON Unavailable Unavailable [facility] Unavailable Unavailable [place], [facility] Unavailable Unavailable CENTER, [facility] Unavailable Unavailable INC, [facility] Unavailable Unavailable HOSPITAL P, [facility], Unavailable Unavailable [facility] Unavailable Unavailable EQUIPMENT, [facility] Unavailable GROUP PS, [facility] Unavailable Unavailable [facility], [facility] Unavailable Unavailable MEDICAL G, [facility] NURSE Unavailable Unavailable PRACTITIONER GR, [facility] NURSE PRACTITIONER GR EMI POSEY, Unavailable Unavailable MARIE MAYORGA Unavailable Unavailable [facility] Un[facility], [facility] LESTER JR, LESTER JR Unavailable Unavailable CRISTINA OLY, CRISTINA Unavailable Unavailable OLY JEANNETTE SORENSEN MD Unavailable Unavailable [facility] [place], JEANNETTE SORENSEN MD [facility] [place] JOINER CHAVEZ, JOINER CHAVEZ Unavailable Unavailable [facility] Unavailable Unavailable SERVICES, [facility] FERMÍN ALTHEA, Unavailable Unavailable FERMÍN ALTHEA FERMÍN ALTHEA, Unavailable Unavailable FERMÍN ALTHEA [facility], Unavailable Unavailable [facility] Unavailable Unavailable PSC, [facility] CARRERA SHARMAINE, CARRERA Unavailable Unavailable SHARMAINE CARRERA, SHARMAINE A, Unavailable Unavailable SHARMAINE CARRERA MD Unavailable Unavailable CONSULTING SRVPEDRO MD CONSULTING SR[facility], [facility]available [facility] Unavailable Unavailable LAB, [facility] Unavailable Unavailable LAB, [facility] PETTEY JAM, PETTEY Unavailable Unavailable JAM [facility], Unavailable Unavailable [facility], Unavailable Unavailable INC[facility] LEON EMERSON, LEON Unavailable Unavailable EMERSON SCALF OLY, SCALF OLY Unavailable Unavailable [facility], Unavailable Unavailable [facility] SCHULSTAD, LISA, Unavailable Unavailable SCHULSTAD, LISA RICHARD, RCIHARD Unavailable Unavailable AWAD AN, AWAD Unavailable Unavailable AN VANESSA MEDHAT, VANESSA MEDHAT Unavailable Unavailable ZEPEDA SHA, ZEPEDA SHA Unavailable Unavailable SOKAN BAB, SOKAN BAB Unavailable Unavailable [facility] Unavailable Unavailable EQUIPME, [facility] Unavailable Unavailable EQUIPME, [facility] MARINO ÁLVAREZ, MARINO Unavailable Unavailable HAZEL PEREZ, Unavailable Unavailable HAZEL PICHARDO VASCELLO ALONDRA, Unavailable Unavailable VASCELLO ALONDRA [facility] Unavailable Unavailable [address][id number], [id number] NAEL POSEY, NAEL Unavailable Unavailable [facility] Unavailable Unavailable DEPT [facility], [facility] DEPT [facility] Unavailable Unavailable DEPT [facility], [facility] DEPT [facility] MONTERROSO JOSS, MONTERROSO Unavailable Unavailable JOSS MONTERROSO JOSS, MONTERROSO Unavailable Unavailable JOSS WILP, WILP Unavailable Unavailable [facility], Unavailable [facility], Unavailable Unavailable [facility] Purpose Continuity of Care Document - 07-26-2008 through 2016 Problems Code Diagnosis DOS Provider Status [id number] ASHD [place] 11-30-2016 [facility] W/UNS INC ANGINA PECTORIS J449 CHRONIC 11-30-2016 [facility]STRUCTIVE [facility] PULMONARY INC DISEASE UNS Z720 TOBACCO USE 11-30-2016 [facility] INC Z955 PRESENCE OF 11-30-2016 [facility] CORONARY [facility] ANGIOPLASTY INC IMPLANT & GRAFT R928 OTH ABNORM 11-24-2016 [facility] & [facility] INCONCLUSIV INC E FIND ON DX IMAG BREAST [id number] ARCUS 11-23-2016 [facility] SENILIS BILATERAL H2513 AGE-RELATED 11-23-2016 [facility] NUCLEAR CATARACT BILATERAL [id number] REGULAR 11-23-2016 [facility] ASTIGMATISM BILATERAL L570 ACTINIC 11-23-2016 [facility] KERATOSIS D259 LEIOMYOMA 11-17-2016 [facility]YS[facility]ANS UNSPECIFIED GROUP N950 POSTMENOPAU 11-17-2016 [facility] PHYS[facility]ANS BLEEDING GROUP R21 RASH AND 11-17-2016 [facility] OTHER [facility] NONSPECIFIC INC SKIN ERUPTION T14292 OTHER LONG 11-17-2016 [facility] TERM [facility] CURRENT INC DRUG THERAPY [id number] FX UNS 11-15-2016 [facility] CARPAL BONE HOME UNS WRIST MEDICAL INITIAL ENC EQUIPME CLOS FX K4090 UNILAT 11-11-2016 [facility] INGUINAL PHYSICIANS CEDRICK W/O GROUP OBST/GANGRE N NOT RECUR I712 THORACIC 11-10-2016 [facility] AORTIC [facility] ANEURYSM INC WITHOUT RUPTURE R55 SYNCOPE AND 11-10-2016 [facility] COLLAPSE PHYSICIANS GROUP I716 THORACOABDO 11-09-2016 [place] [facility] AORTIC IMAGING ASS ANEURYSM WITHOUT RUPTURE I728 ANEURYSM OF 11-09-2016 [place] OTHER MEDICAL SPECIFIED IMAGING ASS ARTERIES J432 CENTRILOBUL 11-09-2016 [place] AR MEDICAL EMPHYSEMA IMAGING ASS K449 DIAPHRAGMAT 11-09-2016 [place] IC HERNIA MEDICAL W/O IMAGING ASS OBSTRUCTION OR GANGRENE N2889 OTHER 11-09-2016 [place] SPECIFIED MEDICAL DISORDERS IMAGING ASS OF K[facility] AND URETER N289 DISORDER OF 11-09-2016 [place] K[facility]NEY AND MEDICAL URETER IMAGING ASS UNSPECIFIED R921 MAMMO 11-04-2016 [place] CALCIFICATI MEDICAL ON FOUND ON IMAGING ASS DX IMAGING BREAST Z1231 ENCOUNTER 11-04-2016 [place] SCREENING MEDICAL MAMMO MALIG IMAGING ASS NEOPLASM BREAST I10 ESSENTIAL 10-27-2016 [facility] PRIMARY PHYSICIANS HYPERTENSIO GROUP N L23201 ENCOUNTER 10-27-2016 [facility] EVENT SET UP SPECIALIST EXAM PHYSICIANS GENERAL RTN GROUP W/ABNORMAL FIND B70562 ENCOUNTER 10-27-2016 [facility] EVENT SET UP SPECIALIST EXAM REFERNCE GENERAL RTN LABORATORIE W/O S ABNORMAL FIND Z1212 ENCOUNTER 10-27-2016 [facility] SCREENING PHYSICIANS MALIGNANT GROUP NEOPLASM RECTUM E785 HYPERLIPIDE 10-20-2016 [facility] JAIME PHYSICIANS UNSPECIFIED GROUP I119 HYPERTENSIV 10-20-2016 [facility] E HEART PHYSICIANS DISEASE GROUP WITHOUT HEART FAILURE I208 OTHER FORMS 10-20-2016 [facility] OF ANGINA PHYSICIANS PECTORIS GROUP I2510 ASHD NARRAGANSETT 10-20-2016 [facility] CORONARY PHYSICIANS ARTERY W/O GROUP ANGINA PECTORIS Z8679 PERSONAL 10-20-2016 [facility] HISTORY OTH PHYSICIANS DISEASES GROUP CIRCULATORY SYSTEM I214 NON-ST 09-01-2016 [facility] ELEVATION PHYSICIANS MYOCARDIAL GROUP INFARCTION Z52717 ASHD NARRAGANSETT 09-01-2016 [facility] COR ART PHYSICIANS W/UNSTABLE GROUP ANGINA PECTORIS J441 CHRONIC 08-31-2016 [facility] OBSTRUCTIVE PHYSICIANS PULMONARY GROUP DZ W/EXACERBAT ION I252 OLD 08-30-2016 [facility] P R0602 SHORTNESS 08-30-2016 [facility]ATH PHYSICIANS, [facility] R61 GENERALIZED 08-30-2016 [facility] HYPERHIDROS [facility] P IS R6884 JAW PAIN 08-30-2016 [facility] J020 STREPTOCOCC 08-23-2016 [facility] PHARYNGITIS CENTER J0190 ACUTE 06-09-2016 [facility] SINUSITIS UNSPECIFIED J209 ACUTE 06-09-2016 [facility] BRONCHITIS UNSPECIFIED G4734 IDIOPATH 04-04-2016 [facility] REL [facility] NONOBST INC ALVEOL HYPOVENTILA TN R634 ABNORMAL 04-04-2016 [facility] WEIGHT LOSS [facility] INC R911 SOLITARY 04-04-2016 [facility] PULMONARY [facility] NODULE INC R918 OTHER 04-04-2016 [place] NONSPECIFIC MEDICAL ABNORMAL IMAGING ASS FINDING OF LUNG FIELD G4730 SLEEP APNEA 02-12-2016 [facility]SE PRACTITIONE UNSPECIFIED R GR J439 EMPHYSEMA 02-12-2016 [facility]SE UNSPECIFIED PRACTITIONE R GR Z23 ENCOUNTER 02-03-2016 [facility] DEPT N SINDHU J069 ACUTE UPPER 12-03-2015 [facility] OLY RESPIRATORY INFECTION UNSPECIFIED 82564 OBSTRUCTIVE 12-24-2014 [facility] APNEA MEDICAL EQUIPME 496 CHRONIC 12-24-2014 [facility] OBSTRUCTION [facility] NEC 00981 UNSPECIFIED 12-16-2014 [facility] CLOSED HOME FRACTURE OF MEDICAL CARPAL EQUIPME BONE 4412 THORACIC 08-17-2014 [facility] ANEURYSM WITHOUT MENTION OF RUPTURE 99947 SHORTNESS 08-17-2014 [facility] HEALTH MEDICAL G 50008 OTHER 08-17-2014 [facility] JOSS [place] [address] CHEST PAIN 08-17-2014 [facility] [place] UNSPECIFIED RADIOLOGY 4419 AORTIC 08-05-2014 [facility] DEMETRIO ANEUR UNSPEC SITE WITHOUT MENTION RUPTURE 5119 UNSPECIFIED 08-05-2014 [facility] [place] PLEURAL [facility] EFFUSION 50322 PAINFUL 08-05-2014 [facility] DEMETRIO RESPIRATION 4019 UNSPECIFIED 08-01-2014 [facility] ESSENTIAL HEALTH [place]ERT[place]SIO [place]ICAL G N 52318 DISSECTING 08-01-2014 [facility] AORTIC HEALTH ANEURYSM MEDICAL G THORACIC 96805 DISSECTING 08-01-2014 [facility] [place] [facility]ORT[facility] RADIOLOGY ANEURYSM THORACOABDO ERIN 7140 RHEUMATOID 08-01-2014 [facility] ARTHRITIS HEALTH MEDICAL G 43432 DISSECTING 07-28-2014 [facility] PSC UNSPECIFIED SITE 5180 PULMONARY 07-28-2014 [facility] [place] COLL[facility]SE [facility] V5882 ENCOUNTER 07-28-2014 [facility] [place] FITTING&ADJ RADIOLOGY NON-VASCULA R CATHETER NEC 4422 ANEURYSM OF 07-27-2014 [facility] 04230 ANEURYSM OF 07-27-2014 [facility] SPLENIC SERV [facility] 4928 OTHER 07-27-2014 [facility] EMPHYSEMA SERV [facility] 5533 DIAPHRAGMAT 07-27-2014 [facility] W/O SERV MENTION FOUNDATION OBSTRUCTION /GANGREN 10529 SOLITARY 07-27-2014 [facility] PULMONARY SERV NODULE [facility]OUNDATION 24125 OTHER 04-21-2014 [facility] SELECTIVE ALTHEA IMMUNOGLOBU GILBERTO DEFICIENCIE S 2859 UNSPECIFIED 04-21-2014 [facility] ANEMIA [facility] INC 4739 UNSPECIFIED 04-21-2014 [facility] SINUSITIS [facility] INC 4770 ALLERGIC 04-21-2014 [facility] RHINITIS ALTHEA DUE TO POLLEN 4778 ALLERGIC 04-21-2014 [facility] RHINITIS ALTHEA DUE TO OTHER ALLERGEN 82063 OBSTRUCTIVE 04-21-2014 [facility] CHRONIC ALTHEA BRONCHITIS WITH EXACERBATIO N 4919 UNSPECIFIED 04-21-2014 [facility] CHRONIC [facility] BRONCHITIS INC 85124 CHRONIC 04-21-2014 [facility]IVE [facility] ASTHMA INC UNSPECIFIED 09525 OTHER 04-21-2014 [facility] MALAISE AND [facility] FATIGUE INC V727 DIAGNOSTIC 04-21-2014 [facility] SKIN AND ALTHEA SENSITIZATI ON TESTS 4660 ACUTE 03-11-2014 [facility] OLY BRONCHITIS 4659 ACUTE URIS 02-13-2014 [facility] OLY OF UNSPECIFIED SITE 3384 CHRONIC 12-20-2013 [facility] OLY PAIN SYNDROME 462 ACUTE 12-20-2013 [facility] OLY PHARYNGITIS 4779 ALLERGIC 10-24-2013 [facility] RHINITIS ALTHEA CAUSE UNSPECIFIED 16713 CHRONIC 10-24-2013 [facility] OBSTRUCTIVE ALTHEA ASTHMA W/STATUS ASTHMATICUS 14377 ESOPHAGEAL 10-24-2013 F[facility]ÍN REFLUX ALTHEA 9390 FOREIGN 06-10-2013 [facility] [place] BLADDER AND ADULT & PED URETHRA 5921 CALCULUS OF 05-21-2013 [facility] URETER CONSULTING SRV V7281 PRE-OPERATI 05-21-2013 [facility] RICHEY VE CARDIOVASCU CONSULTING LAR SRV EXAMINATION 591 HYDRONEPHRO 05-16-2013 [facility] AD[facility] PED 7880 RENAL COLIC 05-05-2013 [facility] 2669 UNSPECIFIED 04-22-2013 [facility] VITAMIN B [facility] DEFICIENCY INC 2689 UNSPECIFIED 04-22-2013 [facility] VITAMIN D [facility] DEFICIENCY INC 03159 OBSTRUCTIVE 04-22-2013 [facility] CHRONIC [facility] BRONCHITIS INC WITHOUT EXACERBAT 4829 UNSPECIFIED 04-18-2013 [facility] BACTERIAL ALTHEA PNEUMONIA 4619 ACUTE 02-28-2013 [facility] OLY SINUSITIS, UNSPECIFIED 26734 VARIANTS 12-01-2012 [facility] OLY MIGRAINE NEC INTRACT MIGRAINE W/[place] [address] PAIN IN 06-06-2012 [facility] JOINT, AND MULTIPLE OSTEOPOROSI SITES S C 7242 LUMBAGO 06-06-2012 ARTHR[facility]IS AND OSTEOPOROSI S C 7291 UNSPECIFIED 06-06-2012 [facility] MYALGIA AND AND OSTEOPOROSI MYOSITIS S C 32700 UNSPECIFIED 06-01-2012 [facility] OSTEOPOROSI S V5876 AFTERCARE 06-01-2012 [facility] NEC 5930 NEPHROPTOSI 05-29-2012 [facility] ANESTHESIA GROUP PS V7283 OTHER 05-28-2012 [facility] PRE-OPERATI HOSPITA VE EXAMINATION 2112 BENIGN 05-24-2012 [facility] NEOPLASM OF [facility] DUODENUM INC JEJUNUM AND ILEUM 73394 ACUT GASTR 05-24-2012 PATHOLOGY & ULCER W/O CYTOLOGY MENTION LAB HEMORR PERF/OBST 08353 UNS 05-24-2012 [facility] GASTRITIS&G [facility] ASTRODUODIT INC IS W/O MENTION HEMORR 53569 DYSPHAGIA 05-24-2012 [facility] UNSPECIFIED [facility] INC 13942 UNSPECIFIED 05-16-2012 JEANNETTE SORENSEN MD ARTHROPATHY [place] OTHER SPECIFIED SITES 4780 HYPERTROPHY 05-14-2012 [facility] OF NASAL ALTHEA TURBINATES 34674 MIGRAINE 04-25-2012 [facility] W/[facility] AURA NEUROLOGY INTRACT W/O CENTER [place] STATUS MIGRAINOSUS 90097 CHRONIC 04-25-2012 [facility] MIGRAINE NEUROLOGY W/O CENTER [facility] W/INTRACTAB LE W/O SM 7231 CERVICALGIA 04-25-2012 [facility] 486 PNEUMONIA, 01-11-2012 [facility] ORGANISM [facility] UNSPECIFIED INC 08732 CHRONIC 12-27-2011 JEANNETTE SORENSEN MD SYNDROME PSC 7830 ANOREXIA 12-27-2011 JEANNETTE SORENSEN MD PSC V0481 NEED 12-21-2011 [facility] PROPHYLACTI [facility] VACCINATION &INOCULATIO N FLU 5920 CALCULUS OF 12-14-2011 [facility] KIDNEY [facility] INC 34827 HEMATURIA 12-14-2011 [place] UNSPECIFIED MEDICAL IMAGING ASS 22447 COR 11-29-2011 [facility] ATHEROSLERO UNSPEC TYPE VESSEL NARRAGANSETT/LYNN T 04960 ABDOMINAL 11-17-2011 [facility] [place] PAIN, RADIOLOGY UNSPECIFIED SITE 5929 UNSPECIFIED 11-02-2011 MEÑO ALDRIDGE URINARY CALCULUS 86952 OTHER ACUTE 10-10-2011 [facility] PAIN AMBULANCE SERVICE 5990 URINARY 10-10-2011 [facility] INFECTION SERVICES SITE NOT SPECIFIED 78747 NAUSEA WITH 10-10-2011 [facility] VOMITING AMBULANCE SERVICE 64634 ABDOMINAL 10-10-2011 [facility], EMERGENCY EPIGASTRIC SERVICES 8408 SPRAIN&STRA 04-11-2011 [facility] IN OTH SPEC [facility] P SHOULDER&UP PER ARM 8409 SPRAIN&STRA 04-11-2011 [facility] IN UNSPEC EMERGENCY SITE SERVICES SHOULDER&UP PER ARM 72295 GENERALIZED 04-05-2011 JEANNETTE SORENSEN MD PSC 48368 CLOSED 01-12-2011 [facility] FRACTURE OF [facility]OS[facility] LOWER END INC OF RADIUS WITH ULNA V5489 OTHER 01-12-2011 [place] [facility] IM[facility]ING [facility] 17647 CLOSED 12-22-2010 [facility] COLLES [facility] FRACTURE INC 29563 CONTUSION 11-19-2010 [facility] OF KNEE [facility] INC 9597 INJURY 11-19-2010 [place] OTHER&UNSPE MEDICAL CIFIED KNEE IMAGING ASS LEG ANKLE&FOOT 19468 PAIN IN 11-12-2010 [facility] JOINT, SHOULDER REGION 920 CONTUSION 11-12-2010 [place] OF FACE MEDICAL SCALP AND IMAGING ASS NECK EXCEPT EYE 9248 CONTUSION 11-12-2010 [facility] OF MULTIPLE EMERGENCY SITES NEC SERVICES 2809 UNSPECIFIED 04-05-2010 [facility] IRON [facility] DEFICIENCY INC ANEMIA 1749 MALIGNANT 03-15-2010 [facility] NEOPLASM OF [facility] BREAST INC UNSPECIFIED SITE 7804 DIZZINESS 02-23-2010 JAZMINE C AND JOVANNY GIDDINESS 7802 SYNCOPE AND 02-17-2010 [facility] V7611 SCREENING 02-12-2010 [facility] MAMMOGRAM [facility] FOR INC HIGH-RISK PATIENT V7612 OTHER 02-12-2010 [place] SCREENING MEDICAL MAMMOGRAM IMAGING ASS 36864 ANEMIA IN 02-01-2010 [facility] CHRONIC [facility] KIDNEY INC DISEASE 2113 BENIGN 01-27-2010 PATHOLOGY & NEOPLASM OF CYTOLOGY COLON LAB 2114 BENIGN 01-27-2010 PATHOLOGY & NEOPLASM OF CYTOLOGY RECTUM AND LAB ANAL CANAL V7651 SPECIAL 01-27-2010 [place] [facility] SCREENING SERV FOR [facility]ATIO MALIGNANT NEOPLASMS COLON 75385 ATROPHIC 01-06-2010 PATHOLOGY & GASTRITIS CYTOLOGY WITHOUT LAB MENTION OF HEMORRHAGE 80085 OTHER SPEC 01-06-2010 [place] [facility] GASTRITIS SERV WITHOUT FOUNDATIO MENTION HEMORRHAGE 5564 PSEUDOPOLYP 01-06-2010 PATHOLOGY & OSIS OF CYTOLOGY COLON LAB 2827 OTHER 12-30-2009 [facility] HEMOGLOBINO [facility] PATHIES INC 2768 HYPOPOTASSE 12-21-2009 [facility] JAIME [facility] INC 77482 ING CEDRICK 12-19-2008 SCHULSTAD, W/O MENTION LISA OBST/GANGRE N UNILAT/UNSP EC 7840 HEADACHE 12-05-2008 SHARMAINE CARRERA Medications Na ND Rx Da Fi Fi Am Da Di Ph RX Ph St me C No te ll ll ou ys ag ar # ys at rm s nt no ma ic us Or Da si cy ia de te s n re d ID 54 09 10 28 7 00 EA Ac AM 76 -0 -[address] ti OS 60 8- 6- 99 00 SI ve ON 76 20 20 50 DE E 30 17 17 00 1% 4 53 PH -1 AR % MA OI CY NT ME OF NT CY NT HI AN A IN C CL 00 08 30 30 00 EA Ac 53 -3 -[address] ti SI 64 1- 9- 00 SI ve C 06 20 20 49 DE ID 30 17 17 14 EN 1 34 PH AT AR AL MA CY TA BL OF ET CY NT HI AN A IN C AT 60 08 09 30 30 00 EA Ac OR 50 -3 -[address] ti VA 52 1- 9- [address] 57 20 20 49 DE AT 80 17 17 14 IN 9 30 PH AR 10 MA CY MG OF TA CY BL NT ET HI AN A IN C TO 62 08 09 30 30 00 EA Ac PI 75 -3 -[address] ti RA 60 - 9 00 SI ve MA 70 20 20 49 DE TE 78 17 17 49 6 83 PH 25 AR MA MG CY TA OF BL CY ET NT HI AN A IN C IS 13 08 09 30 30 00 EA Ac OS 66 [...] 18 -3 -[address] ti ID 50 1- 9- 00 00 SI ve OL 77 20 [...] HI -4 AN 0 A IN C BI 00 08 09 30 30 00 EA Ac SO 18 -0 -[address] ti ID 50 4- 1- 00 00 SI ve OL 77 20 20 49 DE OL 43 17 17 14 0 32 PH FU AR MA MA RA CY TE OF 10 CY NT MG HI AN TA A B IN C VE 00 08 09 18 18 00 EA Ac NT 17 -0 -[address] ti OL 30 4- 1- 00 00 SI ve IN 68 20 20 49 DE 22 17 17 40 HF 0 91 PH A AR 90 MA CY MC G OF IN CY BUTCHER NT LE HI R AN A IN C IS 13 07 [...] ve C 06 20 20 49 DE ID 30 17 17 14 EN 1 34 PH AT AR AL MA CY TA BL OF ET CY NT HI AN A IN C IN 00 07 08 30 30 00 EA Ac CR 17 -3 -[address] ti US 30 1- 5- 00 SI ve E 87 20 20 47 DE EL 31 17 17 51 LI 0 17 PH PT AR A MA 62 CY .5 OF MC CY G NT IN HI H AN A IN C AT 60 07 [...] ST ti RA 60 9- 1- 00 SI ve MA 70 20 20 [...] 18 -1 -[address] ti ID 50 5- 4- 00 00 SI ve [...] ve C 06 20 20 49 DE ID 30 17 17 14 EN 1 34 [...] LE HI R AN A IN C ID 59 06 06 27 7 00 EA Ac ED 74 -0 -[address] ti NI 60 7- 0- 00 00 SI ve SO 17 20 20 49 DE NE 31 17 17 03 0 71 PH 10 AR MA MG CY TA OF BL CY ET NT HI AN A IN C BU 00 05 60 30 00 EA Ac ID 59 -2 -[address] ti OP 13 5- 3- 00 SI ve IO 54 20 20 48 DE N 36 17 17 58 HC 0 99 PH L AR SR MA CY 15 0 OF MG CY NT TA HI BL AN ET A IN C CE 00 05 06 20 10 00 EA Ac FD 09 -3 -[address] ti IN 33 0- 3 00 SI ve IR 16 20 20 48 DE 00 17 17 93 30 6 92 PH 0 AR MG MA CY CA PS OF UL CY E NT HI AN A IN C IN 00 07 30 30 30 00 EA Ac CR 17 -3 -[address] ti US 30 0- 3- 00 00 SI ve E 87 20 20 47 DE EL 31 17 17 51 LI 0 17 PH PT AR A MA 61 CY .5 OF MC CY G NT IN HI H AN A IN C CL 00 05 30 30 00 EA Ac 53 -0 -[address] ti SI 64 1- 6- 00 SI ve C 06 20 20 48 DE ID 30 17 17 57 EN 1 01 PH AT AR AL MA CY TA BL OF ET CY NT HI AN A IN C BE 00 05 05 15 10 00 EA Ac TA 16 -0 -[address] ti ME 80 1- 6- 00 SI ve TH 05 20 20 48 DE 51 17 17 57 ON 5 02 PH E AR DP MA CY 0. 05 OF % CY CR NT M HI AN A IN C IN 00 07 29 30 30 00 EA Ac CR 17 [...] 17 17 57 E 5 15 PH ID AR OP MA CY 50 OF MC CY G NT SP HI RA AN Y A IN C BU 00 05 05 60 30 00 EA Ac ID 59 -0 -[address] ti OP 13 2- 6 00 SI ve IO 54 20 20 48 DE N 36 17 17 58 HC 0 99 PH L AR SR MA CY 15 0 OF MG CY NT TA HI BL AN ET A IN C IN 00 04 04 30 30 00 EA Ac CR 17 -0 -[address] ti US 30 4- 8 00 SI ve E 87 20 20 47 DE EL 31 17 17 51 LI 0 17 PH PT AR A MA 62 CY .5 OF MC CY G NT IN HI H AN A IN C LO 16 03 [...] -[address] ti ON 20 6 00 SI ve AT 53 20 20 48 DE AT 75 17 17 00 E 0 10 PH 20 AR 0 MA MG CY CA OF PS CY UL NT E HI AN A IN C CL 00 03 04 30 30 00 EA Ac 53 -2 -[address] ti SI 64 6- - 00 SI ve C 06 20 20 47 DE ID 30 17 17 69 EN 1 99 PH AT AR AL MA CY TA BL OF ET CY NT HI AN A IN C SMITH 53 03 04 20 10 00 EA Ac LF 74 -2 -[address] ti AM 60 6- 00 00 SI ve ET 27 20 [...] 17 17 76 E 5 28 PH ID AR OP MA CY 50 OF MC CY G NT SP HI RA AN Y A IN C FE 64 03 04 60 30 00 EA Ac RR 37 -2 -[address] ti OU 60 7- 00 SI ve S 80 20 20 48 DE SMITH 91 17 17 12 LF 0 07 PH AT AR E MA 32 CY 5 MG OF CY TA NT BL HI ET AN A IN C VE 00 03 04 18 25 00 EA Ac NT 17 -2 -[address] ti OL 30 9- 00 SI ve IN 68 20 20 48 DE 22 17 17 16 HF 0 05 PH A AR 90 MA CY MC G OF IN CY BUTCHER NT LE HI R AN A IN C SMITH 53 03 04 20 10 00 EA Ac LF 74 -1 -[address] ti AM 60 6- 00 SI ve ET 27 20 20 48 DE HO 20 17 17 00 XA 5 09 PH ZO AR LE MA -T CY MP OF DS CY NT TA HI BL AN ET A IN C BE 65 03 04 30 10 00 EA Ac NZ 16 -1 -[address] ti ON 20 6- 00 SI ve AT 53 20 20 48 DE AT 75 17 17 00 E 0 10 PH 20 AR 0 MA MG CY CA OF PS CY UL NT E HI AN A IN C CE 16 03 04 30 30 00 EA Ac TI 71 -1 -[address] ti RI 40 6- - 00 00 SI ve ZI 27 20 20 48 DE NE 10 17 17 00 3 11 PH HC AR L MA 10 CY MG OF CY TA NT BL HI ET AN A IN C BE 00 03 04 15 10 00 EA Ac TA 16 -1 -[address] ti ME 80 6- 4- 00 00 SI ve TH 05 20 20 48 DE 51 17 17 00 ON 5 12 PH E AR DP MA CY 0. 05 OF % CY CR NT M HI AN A IN C IN 00 03 03 30 30 00 EA Ac CR 17 -0 -[address] ti US 30 6- 1- 00 00 SI ve E 87 20 20 47 DE EL 31 17 17 51 LI 0 17 PH PT AR A MA 62 CY .5 OF MC CY G NT IN HI H AN A IN BU 03 03 60 30 00 EA Ac ID 59 -0 -[address] ti OP 13 6- 1- 00 00 SI ve IO 54 20 20 46 DE N 36 17 17 58 HC 0 14 PH L AR SR MA CY 15 0 OF MG CY NT TA HI BL AN ET A IN CL 03 30 30 00 EA Ac 53 -2 -[address] ti SI 64 1- 7- 00 00 SI ve C 06 20 20 47 DE ID 30 17 17 69 EN 1 99 PH AT AR AL MA CY TA BL OF ET CY NT HI AN A IN IN 03 30 30 00 EA Ac CR 17 -0 -[address] ti US 30 6- 3- 00 00 SI ve E 87 20 20 47 DE EL 31 17 17 51 LI 0 17 PH PT AR A MA 62 CY .5 OF MC CY G NT IN HI H AN A IN BU 02 60 30 00 EA Ac ID 59 -3 -[address] ti OP 13 0- 4- 00 00 SI ve IO 54 20 20 46 DE N 36 17 17 58 HC 0 14 PH L AR SR MA CY 15 0 OF MG CY NT TA HI BL AN ET A IN CL 02 30 30 00 EA Ac 53 -2 -[address] ti SI 64 1- 7- 00 00 SI ve C 06 20 20 45 DE ID 30 17 17 36 EN 1 05 PH AT AR AL MA CY TA BL OF ET CY NT HI AN A IN SE 02 60 30 00 EA Ac RE 17 -2 -[address] ti VE 30 1- 7- 00 00 SI ve NT 52 20 20 46 DE 10 17 17 87 DI 0 92 PH SK AR US MA CY 50 OF MC CY G NT HI AN A IN DI 02 12 30 00 EA Ac AZ 17 -2 -[address] ti EP 23 1- 7- 00 00 SI ve AM 92 20 20 0 45 DE 77 17 17 36 10 0 03 PH AR MG MA CY TA BL OF ET CY NT HI AN A IN VE 02 18 25 00 EA Ac NT 17 -2 -[address] ti OL 30 1- 7- 00 00 SI ve IN 68 20 20 45 DE 22 17 17 36 HF 0 04 PH A AR 90 MA CY MC G OF IN CY BUTCHER NT LE HI R AN A IN C LO 16 02 30 30 00 EA Ac RA 71 -2 -[address] ti TA 40 1- 7- 00 00 SI ve DI 48 20 20 45 DE NE 20 17 17 36 3 07 PH 10 AR MA MG CY TA OF BL CY ET NT HI AN A IN C GA 67 02 90 30 00 EA Ac BA 87 -2 -[address] ti PE 70 3- 7- 00 00 SI ve NT 22 20 20 47 DE IN 40 17 17 33 5 63 PH 40 AR 0 MA MG CY CA OF PS CY UL NT E HI AN A IN C BU 00 12 60 30 00 EA Ac ID 59 -2 -[address] ti OP 13 8- 0- 00 00 SI ve IO 54 20 20 46 DE N 36 16 17 58 HC 0 14 PH L AR SR MA CY 15 0 OF MG CY NT TA HI BL AN ET A IN C LO 16 02 24 30 30 00 EA Ac RA 71 -1 -[address] ti TA 40 3- 9- 00 00 SI ve DI 48 20 20 45 DE NE 20 16 17 36 3 07 PH 10 AR MA MG CY TA OF BL CY ET NT HI AN A IN C CL 00 12 30 30 00 EA Ac 53 -1 -[address] ti SI 64 3- 9- 00 00 SI ve C 06 20 20 45 DE ID 30 16 17 36 EN 1 05 PH AT AR AL MA CY TA BL OF ET CY NT HI AN A IN C FL 60 12 01 16 30 00 EA Ac UT 43 -1 -[address] ti IC 20 3- 9- 00 00 SI ve 26 20 20 45 DE ON 41 16 17 76 E 5 28 PH ID AR OP MA CY 50 OF MC [...] AN A IN C SE 00 12 60 30 00 EA Ac RE 17 -1 -[address] ti VE 30 3- 9- 00 00 SI ve NT 52 20 20 46 DE 10 16 17 87 DI 0 92 PH SK AR US MA CY 50 OF MC CY G NT HI AN A IN C BU 00 06 10 3 30 5 [...] 5 60 5 EA 23 AR Ac ID 74 -0 -[address] 93 NO [...] 0 10 5 EA 23 SO Ac ID 74 -1 -[address] 72 KA [...] CY OF CY NT HI AN A 00 [...] 25 NT -4 HI 0 AN A SA 00 10 12 6 60 30 EA 19 EI Ac VE 45 -1 -[address] 54 CH ti LL 61 5- 1- 00 SI 93 HO ve A 55 20 20 DE RN 50 06 10 10 0 PH GE MG AR RA MA LD TA CY R BL ET OF CY NT HI AN A NO 00 11 11 3 [...] -1 -[address] 58 SC ti ID 90 8- 8- 0 SI 45 H [...] S 0.5 ML DOSA GE IM USE Procedures Procedure DOS Code Location Performer [place] [address] LANDEN SCHUSTER [facility] PHYS/QHP INC INC INITIAL 15 MINS <5 YRS CATH PLMT 72552 LANDEN SCHUSTER L HRT & 7 [facility] ARTS INC INC W/NJX & ANGIO IMG S&I BASIC 21311 LANDEN SCHUSTER METABOLIC 7 [facility] PANEL INC INC CALCIUM TOTAL URINE 40861 LANDEN SCHUSTER 7 [facility] TEST INC INC VISUAL COLOR CMPRSN METHS BLOOD 65490 LANDEN SCHUSTER COUNT 7 [facility] COMPLETE INC INC AUTO&AUTO DIFRNTL WBC US BREAST 79591 LANDEN SCHUSTER UNI REAL 7 [facility] TIME INC INC WITH IMAGE COMPLETE DIAGNOSTI 06759 LANDEN SCHUSTER C 7 [facility] MAMMOGRAP INC INC HY COMPUTER- AIDED DETCJ BI FITTING 98757 JOSE GARCIA SPECTACLE 7 S XCPT APHAKIA BIFOCAL BIFOCL V2207 HABASH HABASH +/-4.25-+ 7 /-7.00D SPHER 0.12-2.00 D CYL-EA BIFOCL V2208 HABASH HABASH +/-4.25-+ 7 /-7.00D SPHER 2.12-4.00 D CYL-EA FRAMES V2020 JOSE GARCIA PURCHASES 7 O2 CONC 1 E1390 [facility] 7 HOME HOME 85%/>02 MEDICAL MEDICAL CONC AT [facility] G0463 LANDENFRANCA SCHUSTER OUTPATIEN 7 [facility] T CLIN INC INC VISIT ASSESS & MGMT PT ENDOMETRI 57137 [facility] AL BX 7 PHYSICIAN W/WO S GROUP ENDOCERVI X BX W/O DILAT SPX EVENT C1764 LANDEN SCHUSTER RECORDER 7 [facility] CARDIAC INC INC IMPLANTAT 09698 [facility] ION 7 PHYSICIAN PT-ACTIVA S GROUP SREE CARDIAC EVENT RECORDER CT THORAX 90385 [facility] 7 MEDICAL W/CONTRAS IMAGING T ASS MATERIAL FINAL RPT G9557 [place] CT/MRI 7 MEDICAL CHEST/NCK IMAGING /U/S NO ASS THR NOD<1.[address] [place] [address] LANDEN SCHUSTER ANGIOGRAP 7 [facility] HY CHEST INC INC W/CONTRAS T/[place] [address] LANDEN SCHUSTER ANGIOGRAP 7 [facility] HY INC INC ABDOMEN [place]/CONTR[place] [address] LANDEN SCHUSTER RETROPERI 7 [facility] TONEAL INC [place] [address] [place] RETROPERI 7 MEDICAL TONEAL IMAGING REAL TIME ASS W/[place] [address] [place] ABDOMEN 7 MEDICAL W/CONTRAS IMAGING T ASS MATERIAL FINAL G9551 [facility] REPR ABD 7 MEDICAL IMAG STS IMAGING W/O ASS INCIDNT FND LES NTD: FINAL G9638 [facility] REPORTS 7 MEDICAL W/O DOC IMAGING 1/MORE ASS DOSE REDUCTION TECH SCREENING G0202 [facility] 7 MEDICAL MAMMOGRAP IMAGING HY JERRY ASS INCL CAD WHEN PERFORMD INFO 7025F [facility] SYSTEM 7 MEDICAL ANALYSIS IMAGING ABNORMAL ASS INTERPRAT E SCREENING 54025 LANDEN LANDEN 7 [facility] MAMMOGRAP INC INC HY BI 2[place] [address] [facility] TRANSVAGI 7 MEDICAL NAL IMAGING ASS MAMMO 3340F [facility] ASSESSMEN 7 MEDICAL T CAT IMAGING INCOMP ASS ADDTNL IMAGE DOCD CREATININ 05173 LANDEN SCHUSTER E BLOOD 7 [facility] INC INC COLLECTIO 15608 LANDEN SCHUSTER N VENOUS 7 [facility] [place] [address] LANDEN SCHUSTER UREA 7 [facility] NITROGEN INC INC QUANTITAT JADON IADNA 82522 [facility] HAR[facility] NEISSERIA 7 PHYSICIAN S GROUP GONORRHOE AE DIRECT PROBE TQ IADNA 08023 BIO BIO NEISSERIA 7 REFERNCE 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 GONORRHOE IES IES AE AMPLIFIED PROBE TQ IADNA NOS 54372 BIO BIO 7 REFERNCE REFERNCE AMPLIFIED LABORATOR LABORATOR PROBE TQ IES IES EACH ORGANISM BLOOD 30547 [facility] OCCULT 7 PHYSICIAN PHYSICIAN PEROXIDAS S GROUP S GROUP E ACTV QUAL FECES 1-3 SPEC IADNA 60589 BIO BIO CHLAMYDIA 7 REFERNCE 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 TRACHOMAT IES IES IS AMPLIFIED PROBE TQ IADNA 19128 BIO BIO TRICHOMON 7 REFERNCE 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 VAGINALIS IES IES AMPLIFIED PROBE TECH CULTURE 30097 [facility] HARPEL CHLAMYDIA 7 PHYSICIAN ANY S GROUP SOURCE CYTP C/V 35506 BIO BIO AUTO THIN 7 REFERNCE REFERNCE LYR LABORATOR LABORATOR PREPJ SCR IES IES MNL RESCR PHYS ECG 60396 [facility] ROUTINE 7 PHYSICIAN ECG S GROUP W/LEAST 12 LDS I&R ONLY ECG 50228 LANDEN SCHUSTER ROUTINE 7 [facility] ECG INC INC W/LEAST 12 LDS TRCG ONLY W/O I&R O2 CONC 1 E1390 [facility] [place] 7 HOME HOME 85%/>02 MEDICAL MEDICAL CONC AT [facility] TEST 28716 LANDEN SCHUSTER PRSMV 7 [facility] QUAL DIR INC INC OPTICAL OBS PER DAY NEBULIZER E0570 SHAQ NEW WITH 7 HOME HOME COMPRESSO MEDICAL MEDICAL R EQUIPME EQUIPWI ADMN SET A7005 YOUR YOUR W/SM VOL 7 PHARMACY PH[facility]AC[facility] NEBULIZR NON-DISPB L ECG 92679 LANDEN SCHUSTER ROUTINE 7 [facility] ECG INC INC W/LEAST 12 LDS TRCG ONLY W/O I&R O2 CONC 1 E1390 [facility] [place] 7 HOME HOME 85%/>02 MEDICAL [facility] FL[facility] GUIDE C1769 LANDEN SCHUSTER WIRE 7 [facility] INC INC STENT C1876 LANDEN SCHUSTER NON-COATE 7 [facility] D/NON-COV INC INC ERED W/DELIVER Y SYSTEM CATHETER C1725 LANDEN SCHUSTER TRANSLUMI 7 [facility] NAL INC INC ANGIOPLAS TY NON-LASER BLOOD 38974 LANDEN SCHUSTER COUNT 7 [facility] COMPLETE INC INC AUTO&AUTO DIFRNTL WBC COAGULATI 08256 LANDEN SCHUSTER ON TIME 7 [facility] ACTIVATED INC INC HOSPITAL G0378 LANDEN SCHUSTER OBSERVATI 7 [facility] ON INC INC SERVICE PER HOUR CLOSURE C1760 LANDEN SCHUSTER DEVICE 7 [facility] VASCULAR INC INC INTRDUCR/ C1894 LANDEN SCHUSTER SHEATH 7 [facility] NOT GUID INC INC INTRACARD EP NON-[facility] HOSPITAL 82866 [facility] 7 PHYSICIAN DAY S GROUP MANAGEMEN T 30 MIN/< BASIC 92083 LANDEN SCHUSTER METABOLIC 7 [facility] PANEL INC INC CALCIUM TOTAL COLLECTIO 79817 LANDEN SCHUSTER N VENOUS 7 [facility] [place]OD [place] PRQ [address] LANDEN SCHUSTER TRLUML 7 [facility]OSP CORONARY INC INC STENT W/ANGIO ONE ART/BRNCH LIPID 13786 LANDEN SCHUSTER PANEL 7 [facility] INC INC INITIAL 29771 [facility] 7 PHYSICIAN CARE/DAY S GROUP 50 MINUTES URINE 39675 LANDEN SCHUSTER 7 [facility] HOSP TEST INC INC VISUAL COLOR CMPRSN METHS CATH PLMT 67743 LNADEN SCHUSTER L HRT & 7 [facility] HOSP ARTS INC INC W/NJX & ANGIO [facility] G0378 LANDEN SCHUSTER OBSERVATI 7 [facility]OS[facility] ON INC INC SERVICE PER HOUR GUIDE C1769 LANDEN SCHUSTER WIRE 7 [facility] INC INC CATHETER C1725 LANDEN SCHUSTER TRANSLUMI 7 [facility] NAL INC INC ANGIOPLAS TY NON-LASER BLOOD 17732 LANDEN SCHUSTER COUNT 7 [facility] COMPLETE INC INC AUTO&[place] [address] LANDEN SCHUSTER TROPONIN 7 [facility]OS[facility] QUANTITAT INC INC JADON RADIOLOGI 77249 [place] [facility] C 7 MEDICAL EXAMINATI IMAGING ON CHEST ASS SINGLE VIEW FRONTAL CRITICAL 40888 [facility] 7 PHYSICIAN ILL/INJUR S, PLLC ED PATIENT INIT 30-74 MIN AMB A0427 [facility] SERVICE 7 AMBULANCE AMBULANCE ALS SERVICE SERVICE EMERGENCY TRANSPORT LEVEL 1 GROUND A0425 [facility] MILEAGE 7 AMBULANCE AMBULANCE PER SERVICE SERVICE STATUTE MILE THERAPEUT 63324 LANDEN SCHUSTER IC 7 [facility] INJECTION INC [place] [address] LANDEN SCHUSTER INFUSION 7 [facility] THERAPY/P INC INC ROPHYLAXI S /DX 1ST TO 1 HR ECG 38077 LANDEN SCHUSTER ROUTINE 7 [facility] ECG INC INC W/LEAST 12 LDS TRCG ONLY W/O I&R COMPREHEN 21631 LANDEN SCHUSTER SIVE 7 [facility] METABOLIC INC INC PANEL ECG 23779 LANDEN BATISTA JR ROUTINE 7 [facility] W/LEAST P 12 LDS I&R ONLY PRESSURIZ 98810 LANDEN SCHUSTER ED/NONPRE 7 [facility] SSURIZED INC INC INHALATIO N TREATMENT IAADIADOO 14516 [facility] 7 [facility] CCUS CENTER GROUP A O2 CONC 1 E1390 SH[facility] 7 HOME HOME 85%/>02 MEDICAL MEDICAL CONC AT EQUIPME EQUIPME PRSC FLW RATE O2 CONC 1 E1390 [facility] 7 HOME HOME 85%/>02 MEDICAL MEDICAL CONC AT EQUIPME EQUIPME PRSC FLW RATE O2 CONC 1 E1390 [facility] [place] 7 HOME HOME 85%/>02 MEDICAL MEDICAL CONC AT EQUIPME EQUIPME PRSC FLW RATE O2 CONC 1 E1390 [facility] 7 HOME HOME 85%/>02 MEDICAL MEDICAL CONC AT EQUIPME EQUIPME PRSC FLW RATE FINAL G9638 [place] REPORTS 7 MEDICAL W/O DOC IMAGING 1/MORE ASS DOSE REDUCTION TECH FINAL RPT G9557 [place]/MRI 7 MEDICAL CHEST/NCK IMAGING /U/S NO ASS THR NOD<1.[address] THORAX 58125 [place] [facility] W/O 7 MEDICAL CONTRAST IMAGING MATERIAL ASS O2 CONC 1 E1390 [facility] 6 HOME HOME 85%/>02 MEDICAL MEDICAL CONC AT EQUIPME EQUIPME PRSC FLW RATE O2 CONC 1 E1390 [facility] [place] 6 HOME HOME 85%/>02 MEDICAL MEDICAL CONC AT EQUIPME EQUIPME PRSC FLW RATE SPMTRY 52182 [place] W/VC 6 MEDICAL EXPIRATOR SERV Y ANA MARIA FOUNDATIO W/WO MXML N VOL VNTJ PULMONARY 05032 SAMIA JANE STRESS 6 [place] [address] [facility] JANE DIFFUSING 6 MEDICAL CAPACITY SERV FOUNDATIO N PLETHYSMO 56171 [facility] JANE GRAPHY 6 MEDICAL LUNG SERV VOLUMES FOUNDATIO W/WO N AIRWAY RESIST IIV4 VACC 03984 [facility] S[facility] 6 [facility] DISTRICT VIRUS 0.5 HLTH DEPT HLTH DEPT ML DOS SINDHU SINDHU FOR IM USE ANTINUCLE 37115 LANDEN SCHUSTER AR 6 [facility] ANTIBODIE INC INC S CARLOS ANTIBODY 99493 LANDEN SCHUSTER IDENTIFIC 6 [facility] ATION INC [place] [address] LANDEN SCHUSTER THYROID 6 [facility] STIMULATI INC INC NG HORMONE TSH ALPHA-1-A 74225 LANDEN SCHUSTER NTITRYPSI 6 [facility] N INC INC PHENOTYPE BLOOD 71440 LANDEN SCHUSTER COUNT 6 [facility] COMPLETE INC INC AUTO&AUTO DIFRNTL WBC COLLECTIO 26738 LANDEN SCHUSTER N VENOUS 6 [facility] BLOOD INC INC VENIPUNCT URE COMPREHEN 55249 LANDEN SCHUSTER SIVE 6 [facility] METABOLIC INC INC PANEL O2 CONC 1 E1390 [place] [address] HOME HOME 85%/>02 MEDICAL MEDICAL CONC AT EQUIPME [facility] FLW RATE O2 CONC 1 E1390 [facility] [address] HOME HOME 85%/>02 MEDICAL MEDICAL CONC AT EQUIPME [facility] FLW RATE O2 CONC 1 E1390 [facility] [place] [address] HOME HOME 85%/>02 MEDICAL MEDICAL CONC AT EQUIPME [facility] FLW RATE ADMN SET A7005 YOUR YOUR W/SM VOL 6 PHARMACY PHARMACY [facility] NEBULIZR NON-DISPB L O2 CONC 1 E1390 [facility] [place] [address] HOME HOME 85%/>02 MEDICAL MEDICAL CONC AT EQUIPME [facility] FLW RATE O2 CONC 1 [...] MEDICAL RENT; EQUIPME EQUIPME FLWMTR HUMIDFR&M ASK TUBING A7037 [facility] NWE USED WITH 5 HOME HOME POSITIVE MEDICAL MEDICAL AIRWAY EQUIPME EQUIPME PRESSURE DEVICE FILTER A7038 [facility] NEW DISPBL 5 HOME HOME USED MEDICAL MEDICAL W/POS EQUIPME EQUIPME ARWAY PRESSURE DEVICE CUSHN A7032 SHAQ NEW NASAL 5 HOME HOME MASK MEDICAL MEDICAL INTERFACE EQUIPME EQUIPME REPLACEME NT ONLY EACH ADMN SET A7005 YOUR YOUR W/SM VOL 5 PHARMACY PHARMACY [facility] NEBULIZR NON-DISPB L O2 CONC 1 [...] HUMIDFR&M ASK O2 CONC 1 E1390 [facility] [place] 5 HOME HOME 85%/>02 MEDICAL MEDICAL CONC AT EQUIPME EQUIPME PRSC FLW RATE PRTBLE E0431 SHAQ NEW GASEOUS 5 HOME HOME O2 SYS MEDICAL MEDICAL RENT; EQUIPME EQUIPME FLWMTR HUMIDFR&M ASK ECG 80954 MONTERROSO MONTERROSO ROUTINE 5 JOSS JOSS ECG W/LEAST 12 LDS I&R ONLY RADIOLOGI 36885 MONTERROSO MONTERROSO C 5 JOSS JOSS EXAMINATI ON CHEST SINGLE VIEW FRONTAL O2 CONC 1 E1390 [facility] [place] 5 HOME HOME 85%/>02 MEDICAL MEDICAL CONC AT EQUIPME EQUIPME PRSC FLW RATE RADIOLOGI 03640 [facility] [place] KOSTELIC C 5 RADIOLOGY KALPESH EXAMINATI ON CHEST SINGLE VIEW FRONTAL ECG 94463 [facility] ROUTINE 5 NE HEALTH [place] ECG MEDICAL W/LEAST G 12 LDS I&[place] [address] [facility] [place] KOST[place] ANGIOGRAP 5 RADIOLOGY [place] HY CHEST W/CONTRAS T/[place] [address] [facility] [place] ANGIOGRAP 5 RADIOLOGY GUTIERREZ HY CHEST W/CONTRAS T/NONCONT RAST CT ANGIO 50154 [facility] [place] ABD&PLVIS 5 RADIOLOGY GUTIERREZ CNTRST MTRL W/WO CNTRST IMG INITIAL 78116 [facility] 5 NE [facility] CARE/DAY MEDICAL 70 G MINUTES RADIOLOGI 48855 [facility] [place] SIMEON C 5 RADIOLOGY ISHMAEL EXAMINATI ON CHEST SINGLE VIEW FRONTAL RADIOLOGI 59167 [facility] [place] C 5 RADIOLOGY ISHMAEL EXAMINATI ON CHEST SINGLE VIEW FRONTAL DOPPLER [address] ECHOCARD 5 A PULSE ASSOCIATE WAVE S PSC W/SPECTRA L DISPLAY SPCL STN 91259 KAHLIL PICHARDO 2 I&R 5 [facility] MICROORG/ PSC ENZYME/IM CYT ASCENDING 25346 EM IV EM IV AORTA 5 OLY OLY GRF W/CARD BYP & VALVE SSP ANES HRT [address] PERICRD 5 A SAC&GRT ASSOCIATE VSLS S PSC W/DYNAMITE PACKING MACHINE FEEDER OXTJ >1MO PO ECHO [address] TRANSESOP 5 A HAG R-T ASSOCIATE 2D W/PRB S PSC IMG ACQUISJ I&R DOP [address] ECHOCARD 5 A COLOR ASSOCIATE FLOW S PSC VELOCITY MAPPING INITIAL 17455 EM IV EM IV INPATIENT 5 OLY OLY CONSULT NEW/ESTAB PT 55 [place] [address] [place] [facility] GROSS&[place] [address] [place] AYOOB AND ANGIOGRAP 5 MEDICAL HY CHEST SERV W/CONTRAS FOUNDATIO T/NONCONT N RAST CT ANGIO 18542 [place] AYOOB AND ABD&PLVIS 5 MEDICAL CNTRST SERV MTRL W/WO FOUNDATIO CNTRST N IMG O2 CONC 1 E1390 [facility] [place] 5 HOME HOME 85%/>02 MEDICAL MEDICAL CONC AT EQUIPME EQUIPME PRSC FLW RATE O2 CONC 1 E1390 [facility] [place] 5 HOME HOME 85%/>02 MEDICAL MEDICAL CONC AT EQUIPME EQUIPME PRSC FLW RATE O2 CONC 1 E1390 [facility] [place] 5 HOME HOME 85%/>02 MEDICAL MEDICAL CONC AT EQUIPME EQUIPME PRSC FLW RATE C-REACTIV 83048 LANDEN SCHUSTER E PROTEIN 5 [facility] INC INC ANTIBODY 95926 LANDEN SCHUSTER DIPHTHERI 5 [facility] A INC INC ANTIBODY 68296 LANDEN SCHUSTER TETANUS 5 [place] [address] LANDEN SCHUSTER GAMMAGLOB 5 [facility] [place] [address] LANDEN SCHUSTER FREE 5 [facility] THYROXINE INC INC BLOOD 49884 LANDEN SCHUSTER COUNT 5 [facility] COMPLETE INC INC AUTO&[place] [address] LANDEN SCHUSTER THYROID 5 [facility] STIMULATI INC INC NG HORMONE TSH SEDIMENTA 86163 LANDEN SCHUSTER TION RATE 5 [facility] RBC INC INC NON-AUTOM ATED CUL BACT 06542 LANDEN SCHUSTER XCPT 5 [facility] URINE INC INC BLOOD/STO OL AEROBIC ISOL GAMMAGLOB 40368 LANDEN SCHUSTER ULIN 5 [facility] IMMUNOGLO INC INC BULIN SUBCLASSE S TUBING A7037 SH[facility] SHAQ USED WITH 5 HOME HOME POSITIVE MEDICAL MEDICAL AIRWAY EQUIPME EQUIPME PRESSURE DEVICE FULL FACE A7030 SHAQ SHAQ MASK 5 HOME HOME USED MEDICAL MEDICAL W/POS EQUIPME EQUIPME ARWAY PRESS DEVICE EA PRESSURIZ 27892 FERMÍN FERMÍN ED/NONPRE 5 ALTHEA ALTHEA SSURIZED INHALATIO N TREATMENT PERCUTANE 53948 FERMÍN FERMÍN OUS TESTS 5 ALTHEA ALTHEA W/ALLERGE PHYLICIA EXTRACTS BRNCDILAT 63518 FERMÍN FERMÍN RSPSE 5 ALTHEA ALTHEA SPMTRY PRE&POST- BRNCDILAT ADMN RADIOLOGI 83282 [facility] EXAM 5 MEDICAL BELINDA CHEST 2 IMAGING VIEWS ASS FRONTAL&L ATERAL COMPREHEN 96200 LANDEN SCHUSTER SIVE 5 [facility] METABOLIC INC INC PANEL ADMN SET A7005 YOUR YOUR W/SM VOL 5 PHARMACY PHARMACY [facility] NEBULIZR NON-DISPB L CYANOCOBA 55257 LANDEN LANDEN JOSE RAFAEL 5 [facility] VITAMIN INC INC B-12 25 00718 LANDEN LANDEN HYDROXY 5 [facility] INCLUDES INC INC FRACTIONS IF PERFORMED ANTIBODY 33176 LANDEN SCHUSTER BACTERIUM 5 [facility] NOT INC INC ELSEWHERE SPECIFIED ANTIBODY 07302 LANDEN SCHUSTER RUBELLA 5 [facility] INC INC COMPLEMEN 46794 LANDEN SCHUSTER T TOTAL 5 [facility] HEMOLYTIC INC INC SMR PRIM 98350 LANDEN LANDEN SRC 5 [facility] GRAM/GIEM INC INC SA STAIN BCT FUNGI/ELPIDIO L COLLECTIO 26608 LANDEN SCHUSTER N VENOUS 5 [facility] BLOOD INC INC VENIPUNCT URE HEADGEAR A7035 [facility] NEW USED 5 HOME HOME W/POSITIV MEDICAL MEDICAL E AIRWAY EQUIPME EQUIPME PRESSURE DEVICE HEMAGGLUT 96559 LANDEN SCHUSTER INATION 5 [facility] INHIBITIO INC INC N TEST ERICKA CULTURE 23897 LANDEN SCHUSTER FNGI 5 [facility] MOLD/YEAS INC INC T PRSMPTV OTH XCPT BLOOD NITRIC 07070 FERMÍN FERMÍN OXIDE 5 [place]THEA [place] GAS DETERMINA TION O2 CONC 1 E1390 [facility] [place] 4 HOME HOME 85%/>02 MEDICAL MEDICAL CONC AT EQUIPME EQUIPME PRSC FLW RATE O2 CONC 1 E1390 [facility] [place] 4 HOME HOME 85%/>02 MEDICAL MEDICAL CONC AT EQUIPME EQUIPME PRSC FLW RATE O2 CONC 1 E1390 [facility] [place] 4 HOME HOME 85%/>02 MEDICAL MEDICAL CONC AT EQUIPME EQUIPME PRSC FLW RATE BRNCDILAT 16257 FERMÍN FERMÍN RSPSE 4 [place] SPMTRY PRE&POST- BRNCDILAT ADMN PRESSURIZ 17963 FERMÍN FERMÍN ED/NONPRE 4 [place] SSURIZED INHALATIO N TREATMENT O2 CONC 1 E1390 [facility] [place] [...] 85%/>02 MEDICAL MEDICAL CONC AT EQUIPME EQUIPME [facility] FLW RATE CYSTO 39636 [facility] W/SIMPLE [facility] LIZZY REMOVAL ADULT & STONE & PED STENT ECG 12639 PEDRO RICHEY RICHEY PEDRO ROUTINE 4 MD ECG CONSULTIN W/LEAST G SRV 12 LDS I&R ONLY O2 CONC 1 E1390 [facility] [place] 4 HOME HOME 85%/>02 MEDICAL MEDICAL CONC AT EQUIPME EQUIPME [facility] FLW RATE CYSTO 57654 [facility] W/INSERT 4 [facility] BALL URETERAL ADULT & STENT PED DILATION 93569 [facility] NEPHROSTO 4 [facility] BALL MY/URETER ADULT & /URETHRA PED RS&I CYSTO 07257 [facility] SM[facility] W/URETERO 4 [facility] BALL SCOPY ADULT & W/LITHOTR PED IPSY ANES [address] [place] MARISEL CHAVEZ TRURL 4 ANESTHESI FRAGMNTJ A GROUP MANJ&/RMV PS L URETERAL CALCULUS ANTIBODY 62878 LANDEN SCHUSTER BACTERIUM 4 [facility] NOT INC INC ELSEWHERE SPECIFIED 25 [id number] LANDEN SCHUSTER HYDROXY 4 [facility] INCLUDES INC INC FRACTIONS IF PERFORMED CYANOCOBA 86228 LANDEN SCHUSTER JOSE RAFAEL 4 [facility] VITAMIN INC INC B-12 COMPREHEN 52876 LANDEN SCHUSTER SIVE 4 [facility] METABOLIC INC INC PANEL RADIOLOGI 20190 LANDEN SCHUSTER C EXAM 4 [facility] CHEST 2 INC INC VIEWS FRONTAL&[place] [address] LANDEN SCHUSTER THYROID 4 [facility] STIMULAT[place] [address] LANDEN SCHUSTER GAMMAGLOB 4 [facility] [place] [address] LANDEN SCHUSTER FREE 4 [facility] THYROXINE INC INC C-REACTIV 06919 LANDEN SCHUSTER E PROTEIN 4 [facility] INC INC GAMMAGLOB 93350 LANDEN SCHUSTER ULIN 4 [facility] IMMUNOGLO INC INC BULIN SUBCLASSE S SEDIMENTA 88019 LANDEN SCHUSTER TION RATE 4 [facility] RBC INC INC NON-AUTOM ATED BLOOD 53596 LANDEN SCHUSTER COUNT 4 [facility] COMPLETE INC INC AUTO&AUTO DIFRNTL WBC PRESSURIZ 72958 FERMÍN FERMÍN ED/NONPRE 4 [place] SSURIZED INHALATIO N TREATMENT BRNCDILAT 13096 FERMÍN FERMÍN RSPSE 4 [place] SPMTRY PRE&POST- BRNCDILAT ADMN O2 CONC 1 E1390 [facility] NEW DEL [...] CONC AT EQUIPME EQUIPME PRSC FLW RATE FULL FACE A7030 [facility] NEW MASK 3 HOME HOME USED MEDICAL MEDICAL W/POS EQUIPME EQUIPME ARWAY PRESS DEVICE EA TUBING A7037 [facility] SHAQ USED WITH 3 HOME HOME POSITIVE MEDICAL MEDICAL AIRWAY EQUIPME EQUIPME PRESSURE DEVICE HEADGEAR A7035 [facility] ORDONEZRELL USED 3 HOME HOME W/POSITIV MEDICAL MEDICAL E AIRWAY EQUIPME EQUIPME PRESSURE DEVICE O2 CONC [...] CONC 1 E1390 [facility]AQ SHAQ DEL PORT 3 HOME HOME 85%/>02 MEDICAL MEDICAL CONC AT EQUIPME EQUIPME PRSC FLW RATE PRESSURIZ 11509 FERMÍN FERMÍN ED/NONPRE 3 [place] SSURIZED INHALATIO N TREATMENT BRNCDILAT 75453 FERMÍN FERMÍN RSPSE 3 [place] SPMTRY PRE&POST- BRNCDILAT ADMN ADMN SET A7005 YOUR YOUR W/SM VOL 3 PHARMACY PHARMACY [facility] NEBULIZR NON-DISPB L O2 CONC 1 E1390 SHAQ NEW DEL PORT 3 HOME HOME 85%/>02 MEDICAL MEDICAL CONC AT EQUIPME EQUIPME PRSC FLW RATE O2 CONC 1 E1390 SHAQ SHAQ DEL PORT 3 HOME HOME 85%/>02 MEDICAL MEDICAL CONC AT EQUIPME EQUIPME PRSC FLW RATE O2 CONC 1 E1390 [facility] ORDONEZRELL DEL PORT 3 HOME HOME 85%/>02 MEDICAL MEDICAL CONC AT EQUIPME EQUIPME PRSC FLW RATE PYELOPLAS 82289 [facility] TY SIMPLE 3 N N [facility] HOSPITA LAPAROSCO 55776 [facility] PY 3 [place] LIZZY RADICAL ADULT & NEPHRECTO PED MY INJECTION J1580 [facility] 3 N N GARAMYCIN [facility] H[facility] HOSPITA GENTAMICI N UP TO 80 MG INJECTION J2370 [facility] 3 N N PHENYLEPH [facility] RINE HCL HOSPITA HOSPITA UP TO 1 ML INJECTION J2405 [facility] 3 N N ONDANSETR [facility]CL [facility]ITA HOSPITA PER 1 MG INJECTION J1100 [facility] 3 N N DEXAMETHO [facility] SONE [facility]ITA HOSPITA SODIUM PHOSPHATE 1 MG INJECTION J2001 [facility] 3 N N LIDOCAINE [facility] HCL H[facility] HOSPITA INTRAVENO US INFUS 10 MG CUSHN A7032 [facility] NEW NASAL 3 HOME HOME MASK MEDICAL MEDICAL INTERFACE EQUIPME EQUIPME REPLACEME NT ONLY EACH INJECTION J2710 [facility] 3 N N NEOSTIGMI [facility] NE HOSPITA HOSPITA METHYLSUL FATE UP TO 0.5 MG INJECTION J3010 [facility] FENTANYL 3 N N CITRATE [facility] 0.1 MG HOSPITA HOSPITA ANES 11041 CHRISTIE AWAD XTRPRTL 3 ANESTHESI AN LOWER ABD A GROUP UR TRACT PS RENAL DON NFRCT COLLECTIO 27569 [facility] N VENOUS 3 N N BLOOD [facility] VENIPUNCT HOSPITA HOSPITA URE URNLS DIP 18595 [facility] 3 N N STICK/TAB [facility] LET HOSPITA HOSPITA REAGENT AUTO MICROSCOP Y ECG 76151 [facility] ROUTINE 3 N N ECG [facility] W/LEAST HOSPITA HOSPITA 12 LDS TRCG ONLY W/O I&R COMPREHEN 92694 [facility] SIVE 3 N N METABOLIC [facility] PANEL HOSPITA HOSPITA BLOOD 03841 [facility] COUNT 3 N N COMPLETE [facility] AUTO&AUTO [place]OSP[place] [address] PATHOLOGY CRISTINA SURG 3 & OLY PATHOLOGY CYTOLOGY LAB GROSS&MANJIT ROSCOPIC EXAM EGD 75192 LANDEN SCHUSTER TRANSORAL 3 [facility] BIOPSY [place]INGLE/[place] [address] LAND[facility] MCKEONON INFUSION 3 [facility] THERAPY/P INC INC ROPHYLAXI S /DX 1ST TO 1 HR ANES 88154 [facility] UPPER GI 3 ANESTH ENDOSCOPY [place] [address] [facility] MCKEONON INFUSION 3 [facility] THERAPY INC INC PROPHYLAX IS/DX EA HOUR SPECIAL 25887 PATHOLOGY CRISTINA STAIN 3 & OLY GROUP 1 CYTOLOGY MICROORGA LAB [facility] I&R URINE 25677 LAND[facility] SCHUSTER 3 [facility] TEST INC INC VISUAL COLOR CMPRSN METHS O2 CONC 1 E1390 [facility] [place] 3 HOME HOME 85%/>02 MEDICAL MEDICAL CONC AT EQUIPME EQUIPME PRSC FLW RATE DSTR 23769 ERICA VASCELLO NROLYTC 3 VASCELLO ALONDRA NANO AGEE ROBERTS CHAPEL PARVERTEB FCT SNGL CRVCL/THO RA DSTR 83384 ERICA VASCELLO NROLYTC 3 VASCELLO ALONDRA NANO AGEE ROBERTS CHAPEL PARVERTEB FCT ADDL CRVCL/THO RA MODERATE 16800 ERICA VASCELLO SEDATJ 3 VASCELLO ALONDRA SAME PSC PHYS/QHP 5/>YRS INIT 30 MIN SPMTRY 31936 FERMÍN FERMÍN W/VC 3 ALTHEA ALTHEA EXPIRATOR Y ANA MARIA W/WO MXML VOL VNTJ BOTULINUM J0585 [facility] TOXIN 3 NEUROLOGY [facility] PER UNIT [facility] CHEMODERV 69031 [facility] JON[facility] ATE 3 NEUROLOGY [facility] FACIAL/TR CENTER IGEM/CERV [facility]RI[facility] MUSC MIGRAINE O2 CONC 1 E1390 [facility] [place] 3 HOME HOME 85%/>02 MEDICAL MEDICAL CONC AT EQUIPME EQUIPME [facility] FLW RATE MODERATE 55029 ERICA VASCELLO SEDATJ 3 VASCELLO ALONDRA SOULEYMANE AGEE PSC PHYS/QHP 5/>YRS INIT 30 MIN NJX 80969 ERICA VASCELLO DX/THER 3 VASCELLO ALONDRA AGT PVRT PSC FACET JT CRV/THRC 2ND LEVEL NJX 21887 ERICA VASCELLO DX/THER 3 VASCELLO ALONDRA AGT PVRT PSC FACET JT CRV/THRC 1 LEVEL O2 CONC 1 E1390 [facility] [place] 2 HOME HOME 85%/>02 MEDICAL MEDICAL CONC AT EQUIPME EQUIPME [facility] FLW RATE O2 CONC 1 E1390 [facility] [place] 2 HOME HOME 85%/>02 MEDICAL MEDICAL CONC AT EQUIPME EQUIPME [facility] FLW RATE HEADGEAR A7035 [facility] NEW USED 2 HOME HOME W/POSITIV MEDICAL MEDICAL E AIRWAY EQUIPME EQUIPME PRESSURE DEVICE ELECTRICA A4595 J & L J & L L 2 HOME HOME STIMULATO MEDICAL MEDICAL R EQUIPMENT EQUIPMENT SUPPLIES 2 LEAD PER MONTH FULL FACE A7030 [facility] ORDONEZRELL MASK 2 HOME HOME USED MEDICAL MEDICAL W/POS EQUIPME EQUIPME ARWAY PRESS DEVICE EA PRESSURIZ 93270 FERMÍN FERMÍN ED/NONPRE 2 [place] SSURIZED INHALATIO N TREATMENT BRNCDILAT 42741 FERMÍN FERMÍN RSPSE 2 ALHT[place] SPMTRY PRE&POST- BRNCDILAT ADMN BOTULINUM J0585 ANGLICAN JONEL TOXIN 2 NEUROLOGY [facility] PER UNIT [facility] CYCLIC 63148 [facility] CITRULLIN 2 DIAGNOSTI DIAGNOSTI ATED CS CS PEPTIDE ANTIBODY CREATINE 80383 [facility] KINASE 2 DIAGNOSTI DIAGNOSTI TOTAL CS CS COLLECTIO 45407 [facility] N VENOUS 2 DIAGNOSTI DIAGNOSTI BLOOD CS CS VENIPUNCT URE O2 CONC 1 E1390 [facility] [place] 2 HOME HOME 85%/>02 MEDICAL MEDICAL CONC AT EQUIPME EQUIPME PRSC FLW RATE SEDIMENTA 38593 [facility] TION RATE 2 DIAGNOSTI DIAGNOSTI RBC CS CS AUTOMATED C-REACTIV 54324 [facility] E PROTEIN 2 DIAGNOSTI DIAGNOSTI CS CS IMMUNOASS 22335 [facility] AY 2 DIAGNOSTI DIAGNOSTI ANALYTE CS CS, [place] [address] LANDEN SCHUSTER THYROID 2 [facility] STIMULATI [place] [address] LANDEN SCHUSTER GAMMAGLOB 2 [facility] [place] [address] LANDEN SCHUSTER GAMMAGLOB 2 [facility] ULIN IGA INC INC IGD IGG IGM EACH BLOOD 60737 LANDEN SCHUSTER COUNT 2 [facility] COMPLETE INC INC AUTO&AUTO DIFRNTL WBC GAMMAGLOB 41219 LANDEN SCHUSTER ULIN 2 [facility] IMMUNOGLO INC INC BULIN SUBCLASSE S 25 45184 LANDEN SCHUSTER HYDROXY 2 [facility] INCLUDES INC INC FRACTIONS IF PERFORMED RADIOLOGI 15637 LANDEN SCHUSTER C EXAM 2 [facility] CHEST 2 INC INC VIEWS FRONTAL&L ATERAL BRNCDILAT 14030 FERMÍN FERMÍN RSPSE 2 [place]THEA [place] SPMTRY PRE&POST- BRNCDILAT ADMN PRESSURIZ 34624 FERMÍN FERMÍN ED/NONPRE 2 [place]THEA [place] SSURIZED INHALATIO N TREATMENT ADMN SET A7005 MT MED MT MED W/SM VOL 2 EQUIPMENT EQUIPMENT NONFILTR INC INC NEBULIZR NON-DISPB L DEMO&/GABI 58095 FERMÍN FERMÍN L OF PT 2 ALTHEA [place] UTILIZ AERSL GEN/NEB/I NHLR/IP NEBULIZER E0570 MT [facility] MT MED WITH 2 EQUIPMENT EQUIPMENT COMPRESSO INC INC R FLUOROSCO 31078 ERICA VASCELLO PIC 2 VASCELLO ALONDRA GUIDANCE MD SCHWARTZ NEEDLE PLACEMENT ADD ON INJECTION ERICA VASCELLO 2 VASCELLO ALONDRA SINGLE/ML PSC T TRIGGER POINT 3/> MUSCLES IIV3 41440 LANDEN SCHUSTER VACCINE 2 [facility] VIRUS 0.5 [place] [address] LANDEN SCHUSTER UREA 2 [facility] HOSP NITROGEN INC INC QUANTITAT JADON UROGRAPHY 14937 [place] IV W/WO 2 MEDICAL BELINDA KUB W/WO IMAGING TOMOGRAPH ASS Y CREATININ 42152 LANDEN SCHUSTER E BLOOD 2 [facility] HOSP INC INC CYSTO 20254 [facility] W/SIMPLE 2 [place] LIZZY REMOVAL ADULT & STONE & PED STENT CONTINUOU E0601 SHAQ NEW S 2 HOME HOME POSITIVE MEDICAL MEDICAL AIRWAY EQUIPME EQUIPME PRESSURE DEVICE ANES 93866 [place] AWAD TRURL 2 ANESTHESI AN FRAGMNTJ A GROUP MANJ&/RMV PS L URETERAL CALCULUS CYSTO 69293 [facility] W/URETERO 2 [place] LIZZY SCOPY ADULT & W/RMVL/MA PED [place] STONES DILATION 37789 [facility] NEPHROSTO 2 [facility] LIZZY MY/URETER ADULT & /URETHRA PED RS&I LEVEL III 97115 PATHOLOGY SALAZAR VAN SURG 2 & PATHOLOGY CYTOLOGY LAB GROSS&MANJIT ROSCOPIC EXAM CYSTO 51794 [facility] W/INSERT 2 [facility] LIZZY URETERAL ADULT & STENT PED CYSTO 11087 [facility] W/INSERT 2 [facility] LIZZY URETERAL ADULT & STENT PED LITHOTRIP 93082 [facility] SY 2 [facility] LIZZY XTRCORP ADULT & SHOCK PED WAVE FLUOROSCO 08654 [facility] PY SPX UP 2 [facility] LIZZY TO 1 ADULT & HOUR PED PHYS/QHP TIME ECG 31737 PEDRO RICHEY RICHEY PEDRO ROUTINE 2 MD ECG CONSULTIN W/LEAST G SERV 12 LDS I&R ONLY RADEX 97118 [facility] [place] SCALF OLY ABDOMEN 1 2 RADIOLOGY ANTEROPOS TERIOR VIEW ANES 09962 [facility] [place] LEONNE MEDHAT LITHOTRP 2 ANESTHESI XTRCORP A GROUP SHOCK PS WAVE W/O WATER BATH URINE 15013 [facility] SCHUSTER 2 [facility] TEST INC INC VISUAL COLOR CMPRSN METHS URNLS DIP 45838 [facility] SCHUSTER 2 [facility] STICK/TAB INC INC LET REAGENT AUTO MICROSCOP Y BLOOD 92971 LANDEN SCHUSTER COUNT 2 [facility] COMPLETE INC INC AUTO&AUTO DIFRNTL WBC CONTINUOU E0601 [facility] NWE S 2 HOME HOME POSITIVE MEDICAL MEDICAL AIRWAY EQUIPME EQUIPME PRESSURE DEVICE SUSCEPTIB 19475 LANDEN SCHUSTER LTY STDY 2 [facility] ANTIMICRB INC INC IAL MICRO/[place] [address] LANDEN SCHUSTER LIPASE 2 [facility] INC INC AMB A0427 ÓSCAR BROWN SERVICE 2 [facility] AMBULANCE ALS SERVICE SERVICE EMERGENCY TRANSPORT LEVEL 1 URINE 13958 L[facility] SCHUSTER 2 [facility] TEST INC INC VISUAL COLOR CMPRSN METHS 3D 22593 LANDEN SCHUSTER RENDERING 2 [facility] INC INC W/INTERP& POSTPROC DIFF WORK STATION GROUND 07-16-201 A0425 [facility] 2 AMBULANCE AMBULANCE PER SERVICE SERVICE STATUTE MILE THERAPEUT 84221 LANDEN SCHUSTER IC 2 [facility] INJECTION INC INC IV PUSH EACH NEW DRUG URNLS DIP 45450 LANDEN MCKEONON 2 [facility] STICK/TAB INC [place] [address] LANDEN SCHUSTER ABDOMEN & 2 [facility] PELVIS INC INC W/O CONTRAST MATERIAL THER 03070 LANDEN SCHUSTER PROPH/DX 2 [facility] NJX IV INC INC PUSH SINGLE/1S T SBST/DRUG COMPREHEN 54829 LANDEN SCHUSTER SIVE 2 [facility] METABOLIC INC INC PANEL BLOOD 29196 LANDEN SCHUSTER COUNT 2 [facility] COMPLETE INC INC AUTO&[place] [address] LANDEN SCHUSTER AMYLASE 2 [facility] INC INC CULTURE 33500 LANDEN SCHUSTER BACTERIAL 2 [facility] INC INC QUANTTATI VE COLONY COUNT URINE CULTURE 70296 LANDEN SCHUSTER BCT 2 [facility] ISOL&PRSM INC INC PTV ID ISOLATE EA URINE CONTINUOU E0601 [facility] SHAQ S 2 HOME HOME POSITIVE MEDICAL MEDICAL AIRWAY EQUIPME EQUIPME PRESSURE DEVICE TUBING A7037 [facility] NEW USED WITH 2 HOME HOME POSITIVE MEDICAL MEDICAL AIRWAY EQUIPME EQUIPME PRESSURE DEVICE FILTER A7038 [facility] SHAQ DISPBL 2 HOME HOME USED MEDICAL MEDICAL W/POS EQUIPME EQUIPME ARWAY PRESSURE DEVICE CONTINUOU E0601 SHAQ SHAQ S 2 HOME HOME POSITIVE MEDICAL MEDICAL AIRWAY EQUIPME EQUIPME PRESSURE DEVICE CONTINUOU E0601 [facility] SHAQ S 2 HOME HOME POSITIVE MEDICAL MEDICAL AIRWAY EQUIPME EQUIPME PRESSURE DEVICE DSTR 21286 ERICA ERICA NROLYTC 2 VASCELLO FRANCHESCA ROSAST SNGL CRVCL/THO RA DSTR 14080 ERICA ERICA NROLYTC 2 VASCELLO VASCELLO AGNT MD PSC MD PSC PARVERTEB FCT ADDL CRVCL/THO RA CONTINUOU E0601 [facility] NEW S 2 HOME HOME POSITIVE MEDICAL MEDICAL AIRWAY EQUIPME EQUIPME PRESSURE DEVICE NJX 28023 ERICA ERICA DX/THER 2 VASCELLO VASCELLO AGT PVRT ROBERTS CHAPEL PSC FACET JT CRV/THRC 2ND LEVEL NJX 30701 ERICA ERICA DX/THER 2 VASCELLO VASCELLO AGT PVRT ROBERTS CHAPEL PSC FACET JT CRV/THRC 1 LEVEL CONTINUOU E0601 [facility] NEW S 2 HOME HOME POSITIVE MEDICAL MEDICAL AIRWAY EQUIPME EQUIPME PRESSURE DEVICE NJX 93919 ERICA ERICA DX/THER 2 VASCELLO VASCELLO AGT PVRT ROBERTS CHAPEL PSC FACET JT CRV/THRC 2ND LEVEL NJX 05626 ERICA ERICA DX/THER 2 VASCELLO VASCELLO AGT PVRT ROBERTS CHAPEL PSC FACET JT CRV/THRC 1 LEVEL CUSHN A7032 [facility] NEW NASAL 2 HOME HOME MASK MEDICAL MEDICAL INTERFACE EQUIPME EQUIPME REPLACEME NT ONLY EACH MODERATE 37166 ERICA ERICA SEDATJ 2 VASCELLO VASCELLO SOULEYMANE AGEE ROBERTS CHAPEL ROBERTS CHAPEL PHYS/QHP 5/>YRS INIT 30 MIN DSTR 75513 ERICA ERICA NROLYTC 2 VASCELLO VASCELLO NANO AGEE ROBERTS CHAPEL ROBERTS CHAPEL PARVERTEB FCT ADDL LMBR/SACR AL DSTR 98477 ERICA ERICA NROLYTC 2 VASCELLO VASCELLO NANO AGEE ROBERTS CHAPEL ROBERTS CHAPEL PARVERTEB FCT SNGL LMBR/SACR AL CONTINUOU E0601 [facility] NEW S 2 HOME HOME POSITIVE MEDICAL MEDICAL AIRWAY EQUIPME EQUIPME PRESSURE DEVICE DSTR 21645 ERICA ERICA NROLYTC 2 VASCELLO VASCELLO NANO AGEE ROBERTS CHAPEL ROBERTS CHAPEL PARVERTEB FCT ADDL LMBR/SACR AL DSTR 37233 ERICA ERICA NROLYTC 2 VASCELLO VASCELLO AGNT MD EFREN AGEE PSC PARVERTEB FCT SNGL LMBR/SACR AL CREATINE 49564 LANDEN SCHUSTER KINASE MB 2 [facility] FRACTION INC INC ONLY BLOOD 65167 LANDEN SCHUSTER COUNT 2 [facility] COMPLETE INC INC AUTO&[place] [address] LANDEN LANDEN TROPONIN 2 [facility] QUANTITAT INC INC JADON BASIC 91972 LANDEN LANDEN METABOLIC 2 [facility] PANEL INC INC CALCIUM TOTAL RADIOLOGI 73097 [facility] C 2 MEDICAL MEDICAL EXAMINATI IMAGING IMAGING ON CHEST ASS ASS SINGLE VIEW FRONTAL CREATINE 93288 LANDEN SCHUSTER KINASE 2 [facility] TOTAL INC INC ECG 80411 LNADEN SCHUSTER ROUTINE 2 [facility] W/LEAST P P 12 LDS I&R ONLY NJX 02312 ERICA ERICA DX/THER 2 VASCELLO VASCELLO AGT PVRT MD EFREN AGEE PSC FACET JT LMBR/SAC 3+ LEVEL NJX 45824 ERICA ERICA DX/THER 2 VASCELLO VASCELLO AGT PVRT MD EFREN AGEE PSC FACET JT LMBR/SAC 1 LEVEL NJX 49408 ERICA ERICA DX/THER 2 VASCELLO VASCELLO AGT PVRT MD EFREN AGEE PSC FACET JT LMBR/SAC 2ND LEVEL CUSHN A7032 [facility] NEW NASAL 2 HOME HOME MASK MEDICAL MEDICAL INTERFACE EQUIPME EQUIPME REPLACEME NT ONLY EACH CONTINUOU E0601 [facility] NEW S 2 HOME HOME POSITIVE MEDICAL MEDICAL AIRWAY EQUIPME EQUIPME PRESSURE DEVICE CONTINUOU E0601 [facility] NEW S 1 HOME HOME POSITIVE MEDICAL MEDICAL AIRWAY EQUIPME EQUIPME PRESSURE DEVICE FILTER A7038 [facility] NEW DISPBL 1 HOME HOME USED MEDICAL MEDICAL W/POS EQUIPME EQUIPME ARWAY PRESSURE DEVICE TUBING A7037 [facility] NEW USED WITH 1 HOME HOME POSITIVE MEDICAL MEDICAL AIRWAY EQUIPME EQUIPME PRESSURE DEVICE FULL FACE A7030 [facility] NEW MASK 1 HOME HOME USED MEDICAL MEDICAL W/POS EQUIPME EQUIPME ARWAY PRESS DEVICE EA HUMDIFIR E0562 [facility] NEW HEATED 1 HOME HOME USED MEDICAL MEDICAL W/POS EQUIPME EQUIPME ARWAY PRESSURE DEVICE HEADGEAR A7035 [facility] NEW USED 1 HOME HOME W/POSITIV MEDICAL MEDICAL E AIRWAY EQUIPME EQUIPME PRESSURE DEVICE POLYSOM 28698 LANDEN SCHUSTER 6/>YRS 1 [facility] SLEEP 4/> INC INC ADDL SHWETHA ATTND IIV3 76488 LANDEN SCHUSTER VACCINE 1 [facility] CENTER VIRUS 0.5 ML DOSAGE IM USE WRIST L3908 [facility] NEW HAND 1 HOME HOME ORTHOSIS MEDICAL MEDICAL EXT EQUIPME EQUIPME CONTROL COCK-UP PREFAB RADEX 52243 [place]OV[place] WRIST 1 MEDICAL BELINDA COMPLETE IMAGING MINIMUM 3 ASS VIEWS RADEX 87909 [place] JOV[place] WRIST 1 MEDICAL BELINDA COMPLETE IMAGING MINIMUM 3 ASS VIEWS RADIOLOGI 69198 [place]OV[place] C 1 MEDICAL BELINDA EXAMINATI IMAGING ON KNEE ASS 1/2 VIEWS RADIOLOGI 56366 [place] JOVAN[place] C 1 MEDICAL BELINDA EXAMINATI IMAGING ON KNEE 3 ASS VIEWS 3D 53725 [place]OV[place] RENDERING 1 MEDICAL BELINDA IMAGING W/INTERP& ASS POSTPROC DIFF WORK STATION RADEX 19264 [place] JOVANNY WRIST 1 MEDICAL BELINDA COMPLETE IMAGING MINIMUM 3 ASS VIEWS SLINGS A4565 [facility] KEVIN L.P. 1 CLTX DSTL 53446 GRISELDA ZEINAMei BAB RADIAL 1 EMERGENCY FX/EPIPHY SERVICES [place] SEP W/[place] [address] [facility] MAXILLOFA 1 MEDICAL BELINDA CIAL W/[place] [address] [facility] PETTEY 1 PHYSICIAN JAM RADIAL&UL S GROUP JOCE SHAFT FRACTURES W/O MAN RADEX 80148 LANDEN SCHUSTER WRIST 2 1 [place] [address] LANDEN SCHUSTER INFUSION 1 [facility] THER INC INC PROPH ADDL SEQUENTIA L TO [place] [address] LANDEN SCHUSTER INFUSION 1 [facility] THERAPY/P INC INC ROPHYLAXI S /DX 1ST TO 1 HR BLOOD 72541 LANDEN SCHUSTER COUNT 0 [facility] COMPLETE INC INC AUTO&AUTO DIFRNTL WBC MRI BRAIN 56994 JAZMINE Mcgrath JOVANNY BRAIN 0 JOVANNY BELINDA STEM W/O CONTRAST MATERIAL RHEUMATOI 50110 LANDEN MCKEONON D FACTOR 0 [facility] QUANTITAT INC INC JADON CREATINE 33367 LANDEN LANDEN KINASE 0 [facility] TOTAL INC INC ANTINUCLE 96314 LANDEN SCHUSTER AR 0 [facility] ANTIBODIE INC INC S CARLOS C-REACTIV 48968 LANDEN SCHUSTER E PROTEIN 0 [facility] INC INC PROTEIN 38178 LANDEN SCHUSTER ELECTROPH 0 [facility] ORETIC INC INC FRACTJ&QU ANTJ SERUM SCREENING G0202 [facility] MEDICAL BELINDA MAMMOGRAP IMAGING HY JERRY ASS INCL CAD WHEN PERFORMD - 11014 [facility] AIDED 0 MEDICAL BELINDA DETECTION IMAGING ASS SCREENING MAMMOGRAP HY BASIC 85338 LANDEN SCHUSTER METABOLIC 0 [facility] [place] [address] LANDEN SCHUSTER MAGNESIUM 0 [place] [address] LANDENFRANCA SCHUSTER FERRITIN 0 [facility] INC INC BLOOD 72689 LANDEN SCHUSTER COUNT 0 [facility] COMPLETE INC INC AUTO&AUTO DIFRNTL WBC IRON 19326 LANDEN MCKEONON BINDING 0 [facility] CAPACITY INC INC POTASSIUM 51579 LANDENFRANCA SCHUSTER URINE 0 [place] [address] LANDEN SCHUSTER IRON 0 [place] [address] PATHOLOGY PATHOLOGY SURG 0 & & PATHOLOGY CYTOLOGY CYTOLOGY LAB LAB GROSS&MANJIT ROSCOPIC EXAM ENDOSCOPI 4542 LANDEN SCHUSTER C 0 [facility] POLYPECTO INC INC MY OF LARGE INTESTINE [ENDOSCOP 4836 LANDEN SCHUSTER IC] 0 [facility] [place] [address] LANDENFRANCA SCHUSTER INFUSION 0 [facility] THERAPY INC INC PROPHYLAX IS/DX EA HOUR URINE 94721 LANDEN SCHUSTER 0 [facility] TEST INC [place] [address] LANDEN SCHUSTER INFUSION 0 [facility] THERAPY/P INC INC ROPHYLAXI S /DX 1ST TO 1 HR COLSC FLX 97998 [place] KELI ANT W/RMVL 0 MEDICAL OF TUMOR SERV POLYP FOUNDATIO LESION SNARE TQ IIV3 43257 LANDEN SCHUSTER VACCINE 0 [facility] VIRUS 0.5 ML DOSAGE IM USE SPECIAL 27213 PATHOLOGY PATHOLOGY STAIN 0 & & GROUP 1 CYTOLOGY CYTOLOGY MICROORGA LAB LAB [facility] [place] I&[place] [address] LANDEN LANDEN INFUSION 0 [facility] THERAPY INC [place] PROPHY[place]X [place] [address] LANDEN SCHUSTER INFUSION 0 [facility] THERAPY/P INC INC ROPHYLAXI S /DX 1ST TO 1 HR EGD 59184 SAMIA DICKEY ANT TRANSORAL 0 MEDICAL BIOPSY SERV SINGLE/MU FOUNDATIO LTIPLE ESOPHAGOG 4516 LANDEN SCHUSTER ASTRODUOD 0 [facility] ENOSCOPY [place] [address] PATHOLOGY PATHOLOGY SURG 0 & & PATHOLOGY CYTOLOGY CYTOLOGY LAB LAB GROSS&MANJIT ROSCOPIC EXAM GONADOTRO 11740 LANDEN SCHUSTER PIN 0 [facility] CHORIONIC INC INC QUALITATI VE BLOOD 48849 LANDEN SCHUSTER COUNT 0 [facility] COMPLETE INC INC AUTO&AUTO DIFRNTL WBC BLOOD 48236 LANDEN SCHUSTER COUNT 0 [facility] COMPLETE INC INC AUTO&AUTO DIFRNTL WBC BLOOD 36361 LANDEN SCHUSTER COUNT 0 [facility] COMPLETE INC INC AUTO&AUTO DIFRNTL WBC POTASSIUM 52953 LANDEN LANDEN SERUM 0 [facility] PLASMA/[place] [address] CHRISTIE PETTY UPR W/WO 0 MEDICAL BELINDA GLUCOSE IMAGING W/SM ASS INTEST FOLLW-THR U RADEX 28102 LANDEN MCKEONON UPPER GI 0 [facility] W/WO INC INC GLUCAGON/ DELAY IMAGES W/KUB BLOOD 09175 LANDENFRANCA SCHUSTER OCCULT 0 [facility] PEROXIDAS INC INC E ACTV QUAL FECES 1-3 SPEC BLOOD 64641 LANDEN SCHUSTER COUNT 0 [facility] COMPLETE INC INC AUTO&[place] [address] LANDEN SCHUSTER FOLIC 0 [facility] [place] [address] LANDEN SCHUSTER THYROID 0 [facility] STIMULATI INC INC NG HORMONE TSH POTASSIUM 95958 LANDEN MCKEONON SERUM 0 [facility] PLASMA/WH INC INC OLE BLOOD CYANOCOBA 88397 LANDEN SCHUSTER JOSE RAFAEL 0 [facility] [place] [place] B-12 [place] [address] LANDEN SCHUSTER INFUSION 9 [facility] THERAPY INC INC PROPHYLAX IS/DX EA HOUR ANESTHESI 48980 Kitty STEVENS HERNIA 9 ANESTH HAZEL A REPAIR OF [place] [address] LANDEN SCHUSTER INFUSION 9 [facility] THERAPY/P INC INC ROPHYLAXI S /DX 1ST TO 1 HR THERAPEUT 64777 LANDEN SCHUSTER IC 9 [facility] INJECTION INC INC IV PUSH EACH NEW DRUG RPR 1ST 14028 LANDEN SCHUSTER INGUN 9 [facility] HRNA AGE INC INC 5 YRS/> INCARCERA SREE OTH & OPN 5304 LANDEN SCHUSTER REP 9 [facility] INDIRECT INC INC ING HERNIA W/GRAFT/P ROSTH BLOOD 04297 LANDEN SCHUSTER COUNT 9 [facility] COMPLETE INC INC AUTO&AUTO DIFRNTL WBC GONADOTRO 15372 [facility]ANDEN SCHUSTER PIN 9 [facility] CHORIONIC INC INC QUALITATI VE BASIC 52564 LANDEN SCHUSTER METABOLIC 9 [facility] PANEL INC INC CALCIUM TOTAL Encounters Encounter Start End Date Code Location Performer Type Date [facility] T [facility] OUTPATIEN INC T OFFICE 76581 [facility] 7 7 T NEW 45 MINUTES OFFICE 92308 [facility] OUTPATIEN 7 7 [facility] T VISIT 5 INC MINUTES [facility] - [facility] OUTPATIEN INC T OFFICE 66152 [facility]PEL OUTPATIEN 7 7 PHYSICIAN T VISIT S GROUP 25 MINUTES OFFICE 38138 [facility] ALLFABIANO OUTPATIEN 7 7 PHYSICIAN T NEW 20 S GROUP MINUTES [facility] - 7 7 [facility] OUTPATI[facility] INC [facility] 7 7 [facility]PAT[facility] T [facility] - 7 7 [facility] OUTPATIEN INC [facility] - 7 7 [facility] [facility] PHYSICIAN E S GROUP MEDICINE NEW PATIENT 40-64YRS OFFICE 42887 [facility] RICHARD OUTPATIEN 7 7 PHYSICIAN T VISIT S GROUP 40 MINUTES [facility] T EMERGENCY [id number] [facility]IGH/URGE NT SEVERITY [facility] T OFFICE 67066 MALIK PIZARRO OUTPATIEN 7 7 FAMILY T NEW 30 CARE MINUTES CENTER OFFICE 53965 MEÑ[facility] WILDER OUTPATILALITA 7 7 T VISIT 15 MINUTES [facility] 7 7 [facility] 64756 [facility] OUTPATIEN 6 6 NURSE CK BING T VISIT PRACTITIO 40 NER GR MINUTES [facility]OSP[facility] - 6 6 [facility] 59189 [facility] CONSULTAT 6 6 NURSE CK BING ION PRACTITIO NEW/ESTAB NER GR PATIENT 60 MIN [facility] 6 6 [facility] T OFFICE 97474 MEÑO MEÑO OUTPATIEN 6 6 OLY OLY T VISIT 15 MINUTES EMERGENCY 56266 MONTER[facility]O MONTERROSO DEPT 5 5 JOSS JOSS VISIT HIGH SEVERITY& THREAT FUNCJ EMERGENCY 72731 [facility] ATKINSON DEPT 5 5 VISIT HIGH SEVERITY& THREAT FUNCJ OFFICE 49401 FERMÍN KOVACS OUTPATIEN 5 5 ALTHEA ALTHEA T VISIT 40 MINUTES [facility] 5 5 [facility] T OFFICE 49764 MEÑO VEEPATIEN 4 4 OLY OLY T VISIT 15 MINUTES OFFICE 54635 MEÑO WILDER OUTPATIEN 4 4 OLY OLY T VISIT 15 MINUTES OFFICE 52793 MEÑO BAILEY 4 4 OLY OLY T VISIT 15 MINUTES OFFICE 83755 MEÑO WILDER OUTPATIEN 4 4 OLY OLY T VISIT 15 MINUTES OFFICE 44930 FERMÍN FERMÍN OUTPATIEN 4 4 ALTHEA ALTHEA T VISIT 40 MINUTES OFFICE 32660 [facility] 4 4 [place] LIZZY ION ADULT & NEW/ESTAB PED PATIENT 40 MIN EMERGENCY 99559 GRISELDA IYER DEPT 4 4 EMERGENCY MANJIT VISIT SERVICES HIGH SEVERITY& THREAT [facility] - 4 4 [facility] INC T OFFICE 78064 FERMÍN KOVACS OUTPATIEN 4 4 ALTHEA ALTHEA T VISIT 40 MINUTES OFFICE 09854 MEÑO WILDER OUTPATIEN 3 3 OLY OLY T VISIT 15 MINUTES OFFICE 49816 MEÑO WILDER OUTPATIEN 3 3 OLY OLY T VISIT 15 MINUTES OFFICE 72576 FERMÍN KOVACS OUTPATIEN 3 3 ALTHEA OH T VISIT 40 MINUTES OFFICE 57937 ARTHRITIS MD ARTEMIO OUTPATIEN 3 3 AND MAN T VISIT OSTEOPORO 15 SIS C MINUTES HOME 87354 [facility] V[facility] EST 3 3 HOME PT HEALTH MOD-HI SEVERITY 40 MINUTES HOME 55135 [facility] VISIT EST 3 3 HOME PT HEALTH MOD-HI SEVERITY 40 MINUTES HOME [facility], 3 3 HOME OUTPATIEN HEALTH T HOME 95540 [facility] VISIT EST 3 3 HOME PT HEALTH MOD-HI SEVERITY 40 MINUTES HOME 72057 [facility] VISIT EST 3 3 HOME PT HEALTH MOD-HI SEVERITY 40 MINUTES [facility] [place] - 3 3 N [facility]PAT[facility]EN [facility] - 3 3 N OUTPATIEN [facility] - 3 3 [facility] INC T OFFICE 01149 [facility] JUDIE OUTPATIEN 3 3 PHYSICIAN CAM T NEW 30 S GROUP MINUTES OFFICE 01758 FERMÍN FERMÍN OUTPATIEN 3 3 ALTHEA ALTHEA T VISIT 25 MINUTES OFFICE 93702 ANGLICANSue REMY OUTPATIEN 3 3 NEUROLOGY [facility]FA[facility] T VISIT CENTER 25 BRIANNA MINUTES OFFICE 07583 FERMÍN KOVACS OUTPATIEN 2 2 ALTHEA ALTHEA T VISIT 25 MINUTES OFFICE 84671 ARTHRITIS MD ARTEMIO CONSULTAT 2 2 AND MAN ION OSTEOPORO NEW/ESTAB SIS C PATIENT 60 MIN [facility] T OFFICE 32126 FERMÍN KOVACS OUTPATIEN 2 2 ALTHEA OH T NEW 60 MINUTES OFFICE 22378 ERICA VASCELLO OUTPATIEN 2 2 VASCELLO ALONDRA T VISIT [facility] 25 MINUTES [facility] T OFFICE 04074 ANGLICANSue REMY OUTPATIEN 2 2 HEALTH RAFAEL T VISIT MEDICAL 25 GROUP MINUTES OFFICE 92237 MEÑO WILDER OUTPATIEN 2 2 OLY OLY T VISIT 25 MINUTES OFFICE 03527 [facility] 2 2 [place] LIZZY ION ADULT & NEW/ESTAB PED PATIENT 40 MIN [facility] 2 [facility] T OFFICE 30873 MEÑO WILDER OUTPATIEN 2 2 OLY OLY T VISIT 15 MINUTES EMERGENCY 11931 GRISELDA [facility] 2 2 EMERGENCY [facility] VISIT SERVICES HIGH SEVERITY& THREAT FUNJ EMERGENCY [id number] [facility] DEPARTMEN INC T VISIT HIGH/URGE NT SEVERITY [facility] OUTPATIEN INC T EMERGENCY [id number] [facility] DEPARTMEN INC T VISIT HIGH/URGE NT SEVERITY EMERGENCY 28516 GRISELDA MOREAU DEPT 2 2 EMERGENCY VISIT SERVICES HIGH SEVERITY& THREAT FUN [facility] [facility] OFFICE [id number] MISSARY MEÑO OUTPATIEN 1 1 OLY OLY T VISIT 15 MINUTES [facility] OFFICE [id number] ANGLICAN JONEL OUTPATIEN 1 1 NEUROLOGY RFAAEL T VISIT CENTER 25 BRIANNA MINUTES [facility] 1 1 [facility] EMERGENCY [id number] [facility] 1 1 [facility] DEPARTMEN [facility] T VISIT LOW/MODER SEVERITY [facility] EMERGENCY 52589 GRISELDA KELLY 1 1 EMERGENCY DEPARTMEN SERVICES T VISIT HIGH/URGE NT SEVERITY OFFICE [id number] MEÑO ABEBESARY OUTPATIEN 1 1 OLY OLY T NEW 30 MINUTES [facility] 1 [facility] [facility] 0 [facility] 0 [facility] OFFICE [id number] [facility]GL[place] JONEL OUTPATIEN 0 0 NEUROLOGY RAFAEL T VISIT CENTER 25 BRIANNA MINUTES [facility] 0 0 [facility] [place] [facility] 0 0 [facility] 0 0 [facility] 0 0 [facility] 0 0 [facility] 0 0 [facility] 0 0 [facility] 0 0 [facility] 0 0 [facility] OFFICE [id number] ZACARIAS REMY CONSULTAT 0 0 NEUROLOGY RAFAEL I[facility] CENTER NEW/ESTAB BRIANNA PATIENT 80 MIN OFFICE [id number] DEANDRE VEEPATIEN 0 0 SHARMAINE SHARMAINE T VISIT 15 MINUTES OFFICE 42696 DEANDRE CARRERA OUTPATIEN 0 0 SHARMAINE A SHARMAINE A T VISIT 15 MINUTES [facility] 9 9 [facility] - 9 9 [facility] OFFICE 23982 JUDIE DIMAS CONSULTAT 9 9 , LISA GONZALEZ ION NEW/ESTAB PATIENT 60 MIN OFFICE [id number] DEANDRE CARRERA OUTPATIEN 9 9 SHARMAINE A SHARMAINE A T VISIT 15 MINUTES OFFICE 31457 DEANDRE CARRERA OUTPATIEN 9 9 SHARMAINE A SHARMAINE A T VISIT 15 MINUTES OFFICE 64553 DEANDRE CARRERA OUTPATIEN 9 9 SHARMAINE A SHARMAINE A T VISIT 15 MINUTES
--- OUTSIDE RECORDS SUMMARY | 2017-01-06 02:53 | External Medical Summary Rpt | CCD ---
Author Author , MYRIAM SHEFFIELDELAINE Address Unknown Phone [email or web address] Care Team Providers Care Salary And Wage Administrator Name Role Phone TERESO PHYLICIA, TERESO PHYLICIA [...] C AYOOB AND, AYOOB AND Unavailable Unavailable [facility] Unavailable Unavailable [facility], [facility] Unavailable Unavailable [facility]OR[facility], [facility] Unavailable Unavailable LABORATORIES, [facility] Unavailable Unavailable CENTER, [facility], [facility] Unavailable Unavailable KELI ANT, KELI ANT Unavailable Unavailable [facility] Unavailable Unavailable SERVICE, [facility] Unavailable Unavailable SERVICE, [facility] EDISON DEMETRIO, EDISON DEMETRIO Unavailable Unavailable EDISON DEMETRIO, EDISON DEMETRIO Unavailable Unavailable SMITH LIZZY, Unavailable Unavailable SMITH LIZZY [facility] Unavailable Unavailable ADULT & PED, [facility], Unavailable Unavailable [facility] RICHEY PEDRO, RICHEY PEDRO Unavailable Unavailable JOVANNY BELINDA, Unavailable Unavailable JOVANNY BELINDA BUCK, BUCK Unavailable Unavailable JAZMINE C JOVANNY, Unavailable Unavailable JAZMINE C JOVANNY [facility] [place]available [place], [facility] [place] [facility] Unavailable [place], [facility] Unavailable Unavailable [facility] Unavailable Unavailable JONEL RAFAEL, Unavailable Unavailable JONEL RAFAEL [facility], Unavailable Unavailable [facility] EM IV OLY, EM Unavailable Unavailable IV OLY FRYMAN, FRYMAN Unavailable Unavailable SHIREEN, SHIREEN Unavailable Unavailable SHIREEN MANJIT, SHIREEN Unavailable Unavailable MANJIT [facility] Unavailable Unavailable HOSPITA, [facility] ALEX WAY, ALEX WAY Unavailable Unavailable RECIO LIZZETH, RECIO LIZZETH Unavailable Unavailable HABASH, HABASH Unavailable Unavailable HABASH, HABASH Unavailable Unavailable HARPEL, HARPEL Unavailable Unavailable SIMEON ISHMAEL, SIMEON Unavailable Unavailable ISHMAEL [facility] Unavailable Unavailable [place], [facility] Unavailable Unavailable CENTER, [facility] Unavailable Unavailable INC, [facility] Unavailable Unavailable HOSPITAL P, [facility], Unavailable Unavailable [facility] Unavailable Unavailable EQUIPMENT, [facility] Unavailable Unavailable GROUP PS, [facility] Unavailable Unavailable [facility], [facility] Unavailable Unavailable MEDICAL G, [facility] MEDICAL G [facility] NURSE Unavailable Unavailable PRACTITIONER GR, [facility] NURSE PRACTITIONER GR EMI POSEY, Unavailable Unavailable MARIE MAYORGA Unavailable Unavailable [facility] Un[facility], [facility] LESTER JR, LESTER JR Unavailable Unavailable CRISTINA OLY, CRISTINA Unavailable Unavailable OLY JEANNETTE SORENSEN MD Unavailable Unavailable [facility], JEANNETTE SORENSEN MD [facility] JOINER CHAVEZ, JOINER CHAVEZ Unavailable Unavailable [facility] Unavailable Unavailable SERVICES, [facility] FERMÍN ALTHEA, Unavailable Unavailable FERMÍN ALTHEA FERMÍN ALTHEA, Unavailable Unavailable FERMÍN ALTHEA [facility], Unavailable Unavailable [facility] Unavailable Unavailable PSC, [facility] CARRERA SHARMAINE, CARRERA Unavailable Unavailable SHARMAINE [...] PICHARDO VASCELLO ALONDRA, Unavailable Unavailable VASCELLO ALONDRA [facility] Unavailable Unavailable [address][id number], [id number] NAEL POSEY, NAEL Unavailable Unavailable [facility] Unavailable Unavailable DEPT [facility], [facility] Unavailable Unavailable DEPT [facility], [facility] MONTERROSO JOSS, MONTERROSO Unavailable Unavailable JOSS MONTERROSO JOSS, MONTERROSO Unavailable Unavailable JOSS WILP, WILP Unavailable [facility]available [facility], Unavailable [facility], Unavailable Unavailable [facility] Purpose Continuity of Care Document - 07-26-2008 through 2016 Problems Code Diagnosis DOS Provider Status [id number] [facility]SHD [place] 11-30-2016 [facility] W/UNS INC ANGINA PECTORIS J449 CHRONIC 11-30-2016 [facility]STRUCTIVE [facility] PULMONARY INC DISEASE UNS Z720 TOBACCO USE 11-30-2016 [facility] INC Z955 PRESENCE OF 11-30-2016 [facility] CORONARY [facility] ANGIOPLASTY INC IMPLANT & GRAFT R928 OTH ABNORM 11-24-2016 [facility] INCONCLUSIV INC E FIND ON DX IMAG BREAST C36543 ARCUS 11-23-2016 [facility] SENILIS BILATERAL H2513 AGE-RELATED 11-23-2016 [facility] NUCLEAR CATARACT BILATERAL [id number] REGULAR 11-23-2016 [facility] ASTIGMATISM BILATERAL L570 ACTINIC 11-23-2016 [facility] KERATOSIS D259 LEIOMYOMA 11-17-2016 [facility] OF [facility] PHYSICIANS UNSPECIFIED GROUP N950 POSTMENOPAU 11-17-2016 [facility] [place] PHYSICIANS BLEEDING GROUP R21 RASH AND 11-17-2016 [facility] OTHER [facility] NONSPECIFIC INC SKIN ERUPTION N31931 OTHER LONG 11-17-2016 [facility] TERM [facility] CURRENT INC DRUG THERAPY [id number] FX UNS 11-15-2016 [facility] CARPAL BONE HOME UNS WRIST MEDICAL INITIAL ENC EQUIPME CLOS FX K4090 UNILAT 11-11-2016 [facility] INGUINAL PHYSICIANS CEDRICK W/O GROUP OBST/GANGRE N NOT RECUR I712 THORACIC 11-10-2016 [facility] AORTIC [facility] ANEURYSM INC WITHOUT RUPTURE R55 SYNCOPE AND 11-10-2016 [facility] COLLAPSE PHYSICIANS GROUP I716 THORACOABDO 11-09-2016 [facility] AORTIC IMAGING ASS ANEURYSM WITHOUT RUPTURE I728 ANEURYSM OF 11-09-2016 [place] OTHER MEDICAL SPECIFIED IMAGING ASS ARTERIES J432 CENTRILOBUL 11-09-2016 [place] AR MEDICAL EMPHYSEMA IMAGING ASS K449 DIAPHRAGMAT 11-09-2016 [place] IC HERNIA MEDICAL W/O IMAGING ASS OBSTRUCTION OR GANGRENE N2889 OTHER 11-09-2016 [place] SPECIFIED MEDICAL DISORDERS IMAGING ASS OF KIDNEY AND URETER N289 DISORDER OF 11-09-2016 [place] KIDNEY AND MEDICAL URETER IMAGING ASS UNSPECIFIED R921 MAMMO 11-04-2016 [place] CALCIFICATI MEDICAL ON FOUND ON IMAGING ASS DX IMAGING BREAST Z1231 ENCOUNTER 11-04-2016 [place] SCREENING MEDICAL MAMMO MALIG IMAGING ASS NEOPLASM BREAST I10 ESSENTIAL 10-27-2016 [facility] PRIMARY PHYSICIANS HYPERTENSIO GROUP N S48386 ENCOUNTER 10-27-2016 [facility] PRE PRESS PROOFER EXAM PHYSICIANS GENERAL RTN GROUP W/ABNORMAL FIND W54169 ENCOUNTER 10-27-2016 [facility] PRE PRESS PROOFER EXAM REFERNCE GENERAL RTN LABORATORIE W/O S ABNORMAL FIND Z1212 ENCOUNTER 10-27-2016 [facility] SCREENING PHYSICIANS MALIGNANT GROUP NEOPLASM RECTUM E785 HYPERLIPIDE 10-20-2016 [facility] JAIME PHYSICIANS UNSPECIFIED GROUP I119 HYPERTENSIV 10-20-2016 [facility] E HEART PHYSICIANS DISEASE GROUP WITHOUT HEART FAILURE I208 OTHER FORMS 10-20-2016 [facility] OF ANGINA PHYSICIANS PECTORIS GROUP I2510 [place]D [place] 10-20-2016 [facility] CORONARY PHYSICIANS ARTERY W/O GROUP ANGINA PECTORIS Z8679 PERSONAL 10-20-2016 [facility] HISTORY OTH PHYSICIANS DISEASES GROUP CIRCULATORY SYSTEM I214 NON-ST 09-01-2016 [facility] ELEVATION PHYSICIANS MYOCARDIAL GROUP INFARCTION D84225 ASHD [place] 09-01-2016 [facility] COR ART PHYSICIANS W/UNSTABLE GROUP ANGINA PECTORIS J441 CHRONIC 08-31-2016 [facility] OBSTRUCTIVE PHYSICIANS PULMONARY GROUP DZ W/EXACERBAT ION I252 OLD 08-30-2016 [facility] P R0602 SHORTNESS 08-30-2016 [place] OF BREATH PHYSICIANS, [facility] R61 GENERALIZED 08-30-2016 [facility] HYPERHIDROS [facility] P IS R6884 JAW PAIN 08-30-2016 [place] PHYSICIANS, [facility] J020 STREPTOCOCC 08-23-2016 [facility] PHARYNGITIS CENTER J0190 ACUTE 06-09-2016 [facility] SINUSITIS UNSPECIFIED J209 ACUTE 06-09-2016 [facility] BRONCHITIS UNSPECIFIED G4734 IDIOPATH 04-04-2016 [facility] NONOBST INC ALVEOL HYPOVENTILA [place] R634 ABNORMAL 04-04-2016 [facility] WEIGHT LOSS [facility] INC R911 SOLITARY 04-04-2016 [facility] PULMONARY [facility] NODULE INC R918 OTHER 04-04-2016 [place] NONSPECIFIC MEDICAL ABNORMAL IMAGING ASS FINDING OF LUNG FIELD G4730 SLEEP APNEA 02-12-2016 [facility] [place] [place]ACTITIONE UNSPECIFIED R GR J439 EMPHYSEMA 02-12-2016 [facility] [place]SE UNSPECIFIED PRACTITIONE R GR Z23 ENCOUNTER 02-03-2016 [facility] IMMUNIZATIO [facility] DEPT N SINDHU J069 ACUTE UPPER 12-03-2015 [facility] OLY RESPIRATORY INFECTION UNSPECIFIED 42750 OBSTRUCTIVE 12-24-2014 [facility] SLEEP HOME APNEA MEDICAL EQUIPME 496 CHRONIC 12-24-2014 [facility] OBSTRUCTION [facility] NEC 72093 UNSPECIFIED 12-16-2014 [facility] CLOSED HOME FRACTURE OF MEDICAL CARPAL EQUIPME BONE 4412 THORACIC 08-17-2014 MON[facility] JOSS ANEURYSM WITHOUT MENTION OF RUPTURE 82536 SHORTNESS 08-17-2014 [facility] HEALTH MEDICAL G 87064 OTHER 08-17-2014 [facility] JOSS [place] [address] CHEST PAIN 08-17-2014 [facility] [place] UNSPECIFIED RADIOLOGY 4419 AORTIC 08-05-2014 [facility] DEMETRIO ANEUR UNSPEC SITE WITHOUT MENTION RUPTURE 5119 UNSPECIFIED 08-05-2014 [facility] [place] PLEURAL [facility] EFFUSION 15514 PAINFUL 08-05-2014 [facility] [place] DEMETRIO RESPIRATION 4019 UNSPECIFIED 08-01-2014 [facility] ESSENTIAL HEALTH HYPERTENSIO MEDICAL G N 58001 DISSECTING 08-01-2014 [facility] AORTIC HEALTH ANEURYSM MEDICAL G THORACIC 24197 DISSECTING 08-01-2014 [facility] [place] AORT[facility] RADIOLOGY ANEURYSM THORACOABDO ERIN 7140 RHEUMATOID 08-01-2014 [facility] ARTHRITIS HEALTH MEDICAL G 80381 DISSECTING 07-28-2014 [facility] ANEURYSM CLINIC PSC UNSPECIFIED SITE 5180 PULMONARY 07-28-2014 [facility] [place] [facility]LL[facility] V5882 ENCOUNTER 07-28-2014 [facility] [place] FITTING&ADJ RADIOLOGY NON-VASCULA R CATHETER NEC 4422 ANEURYSM OF 07-27-2014 [facility]AC [facility] ART[facility]OUND[facility] 37147 ANEURYSM OF 07-27-2014 [facility] SPLENIC SERV ARTERY FOUNDATION 4928 OTHER 07-27-2014 [facility] EMPHYSEMA SERV [facility]OUND[facility] 5533 DIAPHRAGMAT 07-27-2014 [facility] C[facility]RICK W/O SERV MENTION FOUNDATION OBSTRUCTION /GANGREN 31330 SOLITARY 07-27-2014 [facility] PULMONARY SERV NODULE FOUNDATION 75668 OTHER 04-21-2014 FERMÍN SELECTIVE ALTHEA IMMUNOGLOBU GILBERTO DEFICIENCIE S 2859 UNSPECIFIED 04-21-2014 [facility] ANEMIA [facility] INC 4739 UNSPECIFIED 04-21-2014 [facility] SINUSITIS [facility] INC 4770 ALLERGIC 04-21-2014 FERMÍ[facility] RHINITIS ALTHEA DUE TO POLLEN 4778 ALLERGIC 04-21-2014 FER[facility] RHINITIS ALTHEA DUE TO OTHER ALLERGEN 36606 OBSTRUCTIVE 04-21-2014 FERMÍN CHRONIC ALTHEA BRONCHITIS WITH EXACERBATIO N 4919 UNSPECIFIED 04-21-2014 [facility] CHRONIC [facility] BRONCHITIS INC 65609 CHRONIC 04-21-2014 [facility] OBSTRUCTIVE [facility] ASTHMA INC UNSPECIFIED 84180 OTHER 04-21-2014 [facility] MALAISE AND [facility] FATIGUE INC V727 DIAGNOSTIC 04-21-2014 FER[facility]ÍN SKIN AND ALTHEA SENSITIZATI ON TESTS 4660 ACUTE 03-11-2014 [facility] OLY BRONCHITIS 4659 ACUTE URIS 02-13-2014 [facility] OLY OF UNSPECIFIED SITE 3384 CHRONIC 12-20-2013 [facility] OLY PAIN SYNDROME 462 ACUTE 12-20-2013 [facility] OLY PHARYNGITIS 4779 ALLERGIC 10-24-2013 FER[facility]ÍN RHINITIS ALTHEA CAUSE UNSPECIFIED 50590 CHRONIC 10-24-2013 [facility] OBSTRUCTIVE ALTHEA ASTHMA W/STATUS ASTHMATICUS 72237 ESOPHAGEAL 10-24-2013 F[facility]ÍN REFLUX ALTHEA 9390 FOREIGN 06-10-2013 [facility] [place] [facility] AND ADULT & PED URETHRA 5921 CALCULUS OF 05-21-2013 [facility] RICHEY URETER CONSULTING SRV V7281 PRE-OPERATI 05-21-2013 [facility] RICHEY VE CARDIOVASCU CONSULTING LAR SRV EXAMINATION 591 HYDRONEPHRO 05-16-2013 [facility] ADULT & PED 7880 RENAL COLIC 05-05-2013 [facility] 2669 UNSPECIFIED 04-22-2013 [facility] VITAMIN B [facility] DEFICIENCY INC 2689 UNSPECIFIED 04-22-2013 [facility] VITAMIN D [facility] DEFICIENCY INC 30228 OBSTRUCTIVE 04-22-2013 [facility] CHRONIC [facility] BRONCHITIS INC WITHOUT EXACERBAT 4829 UNSPECIFIED 04-18-2013 FERMÍN BACTERIAL ALTHEA PNEUMONIA 4619 ACUTE 02-28-2013 [facility] OLY SINUSITIS, UNSPECIFIED 82205 VARIANTS 12-01-2012 [facility] OLY MIGRAINE NEC INTRACT MIGRAINE W/[place] [address] PAIN IN 06-06-2012 ARTHRITIS JOINT, AND MULTIPLE OSTEOPOROSI SITES S C 7242 LUMBAGO 06-06-2012 ARTHRITIS AND OSTEOPOROSI S C 7291 UNSPECIFIED 06-06-2012 ARTHRITIS MYALGIA AND AND OSTEOPOROSI MYOSITIS S C 59789 UNSPECIFIED 06-01-2012 [facility] OSTEOPOROSI S V5876 AFTERCARE 06-01-2012 [facility] NEC 5930 NEPHROPTOSI 05-29-2012 [facility] ANESTHESIA GROUP PS V7283 OTHER 05-28-2012 [facility] PRE-OPERATI HOSPITA VE EXAMINATION 2112 BENIGN 05-24-2012 [facility] NEOPLASM OF [facility] DUODENUM INC JEJUNUM AND ILEUM 70556 ACUT GASTR 05-24-2012 PATHOLOGY & ULCER W/O CYTOLOGY MENTION LAB HEMORR PERF/OBST 06942 UNS 05-24-2012 [facility] GASTRITIS&G [facility] ASTRODUODIT INC IS W/O MENTION HEMORR 36500 DYSPHAGIA 05-24-2012 [facility] UNSPECIFIED [facility] INC 97604 UNSPECIFIED 05-16-2012 JEANNETTE SORENSEN MD ARTHROPATHY [facility] OTHER SPECIFIED SITES 4780 HYPERTROPHY 05-14-2012 FER[facility]ÍN OF NASAL ALTHEA TURBINATES 32170 MIGRAINE 04-25-2012 [facility] AURA NEUROLOGY INTRACT W/O CENTER [place] STATUS MIGRAINOSUS 41809 CHRONIC 04-25-2012 [facility] MIGRAINE NEUROLOGY W/O CENTER [place] W/INTRACTAB LE W/O SM 7231 CERVICALGIA 04-25-2012 [facility] 486 PNEUMONIA, 01-11-2012 [facility] ORGANISM [facility] UNSPECIFIED INC 93298 CHRONIC 12-27-2011 JEANNETTE SORENSEN MD SYNDROME PSC 7830 ANOREXIA 12-27-2011 JEANNETTE SORENSEN MD PSC V0481 NEED 12-21-2011 [facility] PROPHYLACTI [facility] VACCINATION &INOCULATIO N FLU 5920 CALCULUS OF 12-14-2011 [facility] KIDNEY [facility] INC 38094 HEMATURIA 12-14-2011 [facility] UNSPECIFIED [facility]ICAL IMAGING ASS 59887 COR 11-29-2011 [facility] ATHEROSLERO UNSPEC TYPE VESSEL [place]/LYNN T 31597 ABDOMINAL 11-17-2011 [facility] [place] PAIN, RADIOLOGY UNSPECIFIED SITE 5929 UNSPECIFIED 11-02-2011 [facility]DR[facility] URINARY CALCULUS 14263 OTHER ACUTE 10-10-2011 [facility] PAIN AMBULANCE SERVICE 5990 URINARY 10-10-2011 [facility] SITE NOT SPECIFIED 94405 NAUSEA WITH 10-10-2011 [facility] VOMITING AMBULANCE SERVICE 10188 ABDOMINAL 10-10-2011 [facility], [facility]Y EPIGASTRIC SERVICES 8408 SPRAIN&STRA 04-11-2011 [facility] IN OTH SPEC [facility] P SHOULDER&UP PER ARM 8409 SPRAIN&STRA 04-11-2011 [facility] IN UNSPEC EMERGENCY SITE SERVICES SHOULDER&UP PER ARM 92252 GENERALIZED 04-05-2011 JEANNETTE SORENSEN MD PSC 65344 CLOSED 01-12-2011 [facility] FRACTURE OF [facility] LOWER END INC OF RADIUS WITH ULNA V5489 OTHER 01-12-2011 [place] [facility] AFTERCARE IMAGING ASS 68867 CLOSED 12-22-2010 [facility] COLLES [facility] FRACTURE INC 78616 CONTUSION 11-19-2010 [facility] OF KNEE [facility] INC 9597 INJURY 11-19-2010 [place] OTHER&UNSPE MEDICAL CIFIED KNEE IMAGING ASS LEG ANKLE&FOOT 36081 PAIN IN 11-12-2010 [facility] JOINT, SHOULDER REGION 920 CONTUSION 11-12-2010 [place] OF FACE MEDICAL SCALP AND IMAGING ASS NECK EXCEPT EYE 9248 CONTUSION 11-12-2010 [facility] OF MULTIPLE EMERGENCY SITES NEC SERVICES 2809 UNSPECIFIED 04-05-2010 [facility] IRON [facility] DEFICIENCY INC ANEMIA 1749 MALIGNANT 03-15-2010 [facility] NEOPLASM OF [facility] BREAST INC UNSPECIFIED SITE 7804 DIZZINESS 02-23-2010 JAZMINE C AND JOVANNY GIDDINESS 7802 SYNCOPE AND 02-17-2010 [facility] COLLAPSE [facility]OLOGY CENTER [place] V7611 SCREENING 02-12-2010 [facility] MAMMOGRAM [facility] FOR INC HIGH-RISK PATIENT V7612 OTHER 02-12-2010 [place] SCREENING MEDICAL MAMMOGRAM IMAGING ASS 57349 ANEMIA IN 02-01-2010 [facility] CHRONIC [facility] KIDNEY INC DISEASE 2113 BENIGN 01-27-2010 PATHOLOGY & NEOPLASM OF CYTOLOGY COLON LAB 2114 BENIGN 01-27-2010 PATHOLOGY & NEOPLASM OF CYTOLOGY RECTUM AND LAB ANAL CANAL V7651 SPECIAL 01-27-2010 [facility] SCREENING SERV FOR FOUNDATIO MALIGNANT NEOPLASMS COLON 45645 ATROPHIC 01-06-2010 PATHOLOGY & GASTRITIS CYTOLOGY WITHOUT LAB MENTION OF HEMORRHAGE 07735 OTHER SPEC 01-06-2010 [place] [facility] GASTRITIS SERV WITHOUT F[facility]ATIO MENTION HEMORRHAGE 5564 PSEUDOPOLYP 01-06-2010 PATHOLOGY & OSIS OF CYTOLOGY COLON LAB 2827 OTHER 12-30-2009 [facility] HEMOGLOBINO [facility] PATHIES INC 2768 HYPOPOTASSE 12-21-2009 [facility] JAIME [facility] INC 18202 ING CEDRICK 12-19-2008 SCHULSTAD, W/O MENTION LISA OBST/GANGRE N UNILAT/UNSP EC 7840 HEADACHE 12-05-2008 SHARMAINE CARRERA Medications Na ND Rx Da Fi Fi Am Da Di Ph RX Ph St me C No te ll ll ou ys ag ar # ys at rm s nt no ma ic us Or Da si cy ia de te s n re d [place] 54 09 10 28 7 00 EA [...] ve C 06 20 20 49 DE [place] 30 17 17 14 EN 1 34 [...] 18 -3 -[address] [place] 50 1- 9- 00 00 SI ve [...] 17 17 49 TA 5 84 PH ND AR N- MA CA CY FF OF 50 CY -3 NT 25 HI -4 AN 0 A IN C BI 00 08 09 30 30 00 EA Ac SO 18 -0 -[address] ti [place] 50 4- 1- 00 00 SI ve [...] ve C 06 20 20 49 DE AK 30 17 17 14 EN 1 34 [...] 17 17 49 TA 5 84 PH ND AR N- MA CA CY FF OF [...] 18 -1 -[address] [place] 50 5- 4- 00 00 SI ve [...] ve C 06 20 20 49 DE AK 30 17 17 14 EN 1 34 [...] LE HI R AN A IN C AK 59 06 06 27 7 00 EA Ac ED 74 -0 -[address] ti NI 60 7- 0- 00 00 SI ve SO 17 20 20 49 DE NE 31 17 17 03 0 71 PH 10 AR MA MG CY TA OF BL CY ET NT HI AN A IN C BU 00 05 60 30 00 EA Ac AK 59 -2 -[address] ti [...] ve C 06 20 20 48 DE AK 30 17 17 57 EN 1 01 [...] 17 17 57 E 5 15 PH AK AR OP MA CY 50 OF MC CY G NT SP HI RA AN Y A IN C BU 00 05 05 60 30 00 EA Ac AK 59 -0 -[address] ti [...] ve C 06 20 20 47 DE [place] 30 17 17 69 EN 1 99 [...] 17 17 76 E 5 28 PH AK AR OP MA CY 50 OF MC [...] 03 03 60 30 00 EA Ac AK 59 -0 -[address] ti [...] ve C 06 20 20 47 DE [place] 30 17 17 69 EN 1 99 [...] BU 02 60 30 00 EA Ac AK 59 -3 -[address] ti [...] ve C 06 20 20 45 DE [place] 30 17 17 36 EN 1 05 [...] 00 12 60 30 00 EA Ac AK 59 -2 -[address] ti [...] ve C 06 20 20 45 DE [place] 30 16 17 36 EN 1 05 PH AT AR AL MA CY TA BL OF ET CY NT HI AN A IN C FL 60 12 01 16 30 00 EA Ac UT 43 -1 -[address] ti IC 20 3- 9- 00 00 SI ve 26 20 20 45 DE ON 41 16 17 76 E 5 28 PH AK AR OP MA CY 50 OF MC [...] 11 11 RI TA 8 PH CH ND AR AR N- MA D CA CY [...] 11 11 RI TA 8 PH CH ND AR AR N- MA D CA CY W FF OF 50 -3 CY 25 NT -4 HI 0 AN A NA 53 09 09 5 60 5 EA 23 AR Ac [place] 74 -0 -[address] 93 NO [...] 0 10 5 EA 23 SO Ac AK 74 -1 -[address] 72 KA [...] 11 11 RI TA 8 PH CH ND AR AR N- MA D CA CY [...] 11 11 SHRUTHI TA 8 PH E ND AR A N- MA CA CY FF [...] 10 10 SHRUTHI TA 8 PH E ND AR A N- MA CA CY FF [...] 10 10 SHRUTHI TA 8 PH E ND AR A N- MA CA CY FF [...] -1 -[address] 58 SC ti AK 90 8- 8- 0 SI 45 H [...] 10 10 SHRUTHI TA 8 PH E ND AR A N- MA CA CY FF [...] 10 10 SHRUTHI TA 8 PH E ND AR A N- MA CA CY FF OF 50 -3 CY 25 NT -4 HI 0 AN A BU 00 07 07 0 36 6 EA 18 NI Ac TA 60 -1 -[address] 32 CH ti LB 32 3- 3- 00 SI 75 OL ve -A 54 20 20 DE S CE 42 10 10 SHRUTHI TA 8 PH E ND AR A N- MA CA CY FF OF 50 -3 CY 25 NT -4 HI 0 AN A BU 00 03 03 0 36 6 EA 16 NI Ac TA 59 -0 -[address] 59 CH ti LB 13 2- 2- 00 SI 46 OL ve -A 36 20 20 DE S CE 90 10 10 SHRUTHI TA 5 PH E ND AR A N- MA CA CY FF [...] 10 10 SHRUTHI TA 5 PH E ND AR A N- MA CA CY FF OF 50 CY -3 NT 25 HI -4 AN 0 A BU 00 01 01 00 36 7 EA 15 NI Ac TA 59 -0 -[address] 90 CH ti LB 13 9- 8- 00 SI 22 OL ve -A 36 20 20 DE S CE 90 10 10 SHRUTHI TA 5 PH E ND AR A N- MA CA CY FF OF 50 CY -3 NT 25 HI -4 AN 0 A BU 00 12 12 00 36 7 EA 15 NI Ac TA 59 -1 -[address] 57 CH ti LB 13 4- 1- 00 SI 60 OL ve -A 36 20 20 DE S CE 90 09 09 SHRUTHI TA 5 PH E ND AR A N- MA CA CY FF [...] 09 09 SHRUTHI TA 1 PH E ND AR A N- MA CA CY FF [...] 09 09 SHRUTHI TA 1 PH E ND AR A N- MA CA CY FF [...] DOSA GE IM USE IIV3 11-0 141 JHONSON No JOHNSON 9-20 MARCIE MARCIE VACC 11 [...] DOS Code Location Performer Comment MOD SED 00317 [facility] SAME 7 [facility] PHYS/QHP INC INC INITIAL 15 MINS <5 YRS CATH PLMT 04600 [facility] L HRT & 7 [facility] ARTS INC INC W/NJX & ANGIO IMG S&I BASIC 48885 L[facility] METABOLIC 7 [facility] PANEL INC INC CALCIUM TOTAL URINE 77718 [facility] TEST INC INC VISUAL COLOR CMPRSN METHS BLOOD 33822 [facility] COUNT 7 [facility] COMPLETE INC INC AUTO&AUTO DIFRNTL WBC US BREAST 70012 LANDEN SCHUSTER UNI REAL 7 [facility] TIME INC INC WITH IMAGE COMPLETE DIAGNOSTI 76095 LAND[facility]UST[facility] C 7 [facility] MAMMO[facility]AP INC INC HY COMPUTER- AIDED DETCJ BI FITTING 99774 JOSE GARCIA SPECTACLE 7 S XCPT APHAKIA BIFOCAL BIFOCL V2207 HABASH HABASH +/-4.25-+ 7 /-7.00D SPHER 0.12-2.00 D CYL-EA BIFOCL V2208 HABASH HABASH +/-4.25-+ 7 /-7.00D SPHER 2.12-4.00 D CYL-EA FRAMES V2020 JOSE GARCIA PURCHASES 7 O2 CONC 1 E1390 [facility] 7 HOME HOME 85%/>02 [facility] G0463 LANDENFRANCA SCHUSTER OUTPATIEN 7 [facility] T CLIN INC INC VISIT ASSESS & MGMT PT ENDOMETRI 46178 [facility] [place] AL BX 7 PHYSICIAN W/WO S GROUP ENDOCERVI X BX W/O DILAT SPX EVENT C1764 LANDEN SCHUSTER RECORDER 7 [facility] CARDIAC INC INC IMPLANTAT 75827 [facility] RICHARD ION 7 PHYSICIAN PT-ACTIVA S GROUP SREE CARDIAC EVENT RECORDER CT THORAX 90280 [facility] 7 MEDICAL W/CONTRAS IMAGING T ASS MATERIAL FINAL RPT G9557 [address] [address]/MRI 7 MEDICAL CHEST/NCK IMAGING /U/S NO ASS THR NOD<1.[address] [place] [address] LANDEN SCHUSTER ANGIOGRAP 7 [facility] HY CHEST INC INC W/CONTRAS T/[place] [address] LANDEN SCHUSTER ANGIOGRAP 7 [facility] INC INC ABDOMEN W/CONTRAS [place] [address] LANDEN SCHUSTER RETROPERI 7 [facility] TONEAL INC INC REAL TIME W/[place] [address] [facility]RE MELA RETROPERI 7 MEDICAL TONEAL IMAGING REAL TIME ASS W/[place] [address] [place] [place] ABDOMEN 7 MEDICAL W/CONTRAS IMAGING T [...] ANALYSIS IMAGING ABNORMAL ASS INTERPRAT E SCREENING 37948 L[facility]EN LANDEN 7 [facility] MAMMOGRAP INC INC HY [place] 2[place] [address] [facility] TRANSVAGI 7 MEDICAL NAL IMAGING ASS MAMMO 3340F [facility] ASSESSMEN 7 MEDICAL T CAT IMAGING INCOMP ASS ADDTNL IMAGE DOCD CREATININ 14475 LANDEN SCHUSTER E BLOOD 7 [facility] INC INC COLLECTIO 43437 LANDEN SCHUSTER N VENOUS 7 [facility] [place] [address] LANDEN SCHUSTER UREA 7 [facility] NITROGEN INC INC QUANTITAT JADON IADNA 53855 [facility] HARPEL NEISSERIA 7 PHYSICIAN S GROUP GONORRHOE AE DIRECT PROBE TQ IADNA 53497 BIO BIO NEISSERIA 7 REFERNCE 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 GONORRHOE IES IES AE AMPLIFIED PROBE TQ IADNA NOS 39931 BIO BIO 7 REFERNCE REFERNCE AMPLIFIED LABORATOR LABORATOR PROBE TQ IES IES EACH ORGANISM BLOOD 70292 [facility] OCCULT 7 PHYSICIAN PHYSICIAN PEROXIDAS S GROUP S GROUP E ACTV QUAL FECES 1-3 SPEC IADNA 95410 BIO BIO CHLAMYDIA 7 REFERNCE 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 TRACHOMAT IES IES IS AMPLIFIED PROBE TQ IADNA 33284 BIO BIO TRICHOMON 7 REFERNCE 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 VAGINALIS IES IES AMPLIFIED PROBE TECH CULTURE 47748 [facility] HARPEL CHLAMYDIA 7 PHYSICIAN ANY S GROUP SOURCE CYTP C/V 40645 BIO BIO AUTO THIN 7 REFERNCE REFERNCE LYR LABORATOR LABORATOR PREPJ SCR IES IES MNL RESCR PHYS ECG 52287 [facility] RICHARD ROUTINE 7 PHYSICIAN ECG S GROUP W/LEAST 12 LDS I&R ONLY ECG 36731 LANDEN SCHUSTER ROUTINE 7 [facility] ECG INC INC W/LEAST 12 LDS TRCG ONLY W/O I&R O2 CONC 1 E1390 [facility] [place] 7 HOME HOME 85%/>02 MEDICAL MEDICAL CONC AT EQUIPME [facility] FLW RATE DRUG TEST 56398 LANDEN SCHUSTER PRSMV 7 [facility] QUAL DIR INC INC OPTICAL OBS PER DAY NEBULIZER E0570 [facility] NEW WITH 7 HOME HOME COMPRESSO MEDICAL MEDICAL R EQUIPME EQUIPNV ADMN SET A7005 YOUR YOUR W/SM VOL 7 PHARMACY [facility] NEBULIZR NON-DISPB L ECG 53778 LANDEN SCHUSTER ROUTINE 7 [facility] ECG INC INC W/LEAST 12 LDS TRCG ONLY W/O I&R O2 CONC 1 E1390 [facility] [place] 7 HOME HOME 85%/>02 [facility] FL[facility] GUIDE C1769 LANDEN SCHUSTER WIRE 7 [facility] INC INC STENT C1876 LANDEN SCHUSTER NON-COATE 7 [facility] D/NON-COV INC INC ERED W/DELIVER Y SYSTEM CATHETER C1725 LANDEN SCHUSTER TRANSLUMI 7 [facility] NAL INC INC ANGIOPLAS TY NON-LASER BLOOD 95656 LANDEN SCHUSTER COUNT 7 [facility] COMPLETE INC INC AUTO&AUTO DIFRNTL WBC COAGULATI 90349 LANDEN SCHUSTER ON TIME 7 [facility] ACTIVATED INC INC HOSP[facility] [id number] LANDEN SCHUSTER OBSERVATI 7 [facility] ON INC INC SERVICE PER HOUR CLOSURE C1760 LANDEN SCHUSTER DEVICE 7 [facility] VASCULAR INC INC INTRDUCR/ C1894 LANDEN SCHUSTER SHEATH 7 [facility] NOT GUID INC INC INTRACARD EP NON-[facility] 55944 [facility] 7 PHYSICIAN DAY S GROUP MANAGEMEN T 30 MIN/< BASIC 62811 LANDEN SCHUSTER METABOLIC 7 [facility] PANEL INC INC CALCIUM TOTAL COLLECTIO 48965 LANDEN SCHUSTER N VENOUS 7 [facility] BLOOD INC INC VENIPUNCT URE PRQ 87319 LANDEN SCHUSTER TRLUML 7 [facility] HOSP CORONARY INC INC STENT W/ANGIO ONE ART/BRNCH LIPID 17630 LANDEN SCHUSTER PANEL 7 [facility] INC INC INITIAL 56632 [facility] 7 PHYSICIAN CARE/DAY S GROUP 50 MINUTES URINE 94271 LANDEN SCHUSTER 7 [facility]OS[facility] TEST INC INC VISUAL COLOR CMPRSN METHS CATH PLMT 42469 LANDEN SCHUSTER L HRT & 7 [facility] ARTS INC INC W/NJX & ANGIO [facility] G0378 LANDEN SCHUSTER OBSERVATI 7 [facility]OS[facility] ON INC INC SERVICE PER HOUR GUIDE C1769 LANDEN SCHUSTER WIRE 7 [facility] INC INC CATHETER C1725 LANDEN SCHUSTER TRANSLUMI 7 [facility] NAL INC INC ANGIOPLAS TY NON-LASER BLOOD 89157 LANDEN SCHUSTER COUNT 7 [facility] COMPLETE INC INC AUTO&[place] [address] LANDEN SCHUSTER TROPONIN 7 [facility] HOSP QUANTITAT INC INC JADON RADIOLOGI 63970 NEW HAMPSHIRE PLAZA C 7 MEDICAL EXAMINATI IMAGING ON CHEST ASS SINGLE VIEW FRONTAL CRITICAL 67033 [facility] 7 PHYSICIAN ILL/INJUR S, PLLC ED PATIENT INIT 30-74 MIN AMB A0427 [facility] SERVICE 7 AMBULANCE AMBULANCE ALS SERVICE SERVICE EMERGENCY TRANSPORT LEVEL 1 GROUND A0425 [facility] MILEAGE 7 AMBULANCE AMBULANCE PER SERVICE SERVICE STATUTE MILE THERAPEUT 99118 LANDEN SCHUSTER IC 7 [facility] INJECTION INC [place] [address] LANDEN SCHUSTER INFUSION 7 [facility] THERAPY/P INC INC ROPHYLAXI S /DX 1ST TO 1 HR ECG 92989 LANDEN SCHUSTER ROUTINE 7 [facility] ECG INC INC W/LEAST 12 LDS TRCG ONLY W/O I&R COMPREHEN 96300 LANDEN SCHUSTER SIVE 7 [facility] METABOLIC INC INC PANEL ECG 66455 LANDEN BATISTA JR ROUTINE 7 [facility] W/LEAST P 12 LDS I&R ONLY PRESSURIZ 17458 LANDEN SCHUSTER ED/NONPRE 7 [facility] SSURIZED INC INC INHALATIO N TREATMENT IAADIADOO 12369 [facility] GROUP A O2 CONC 1 E1390 [facility] 7 HOME HOME 85%/>02 MEDICAL MEDICAL CONC AT EQUIPME EQUIPME PRSC FLW RATE O2 CONC 1 E1390 [facility] NEW [facility] PORT 7 HOME HOME 85%/>02 MEDICAL MEDICAL CONC AT EQUIPME EQUIPME PRSC FLW RATE O2 CONC 1 E1390 [facility] [place] 7 HOME HOME 85%/>02 MEDICAL MEDICAL CONC AT EQUIPME EQUIPME PRSC FLW RATE O2 CONC 1 E1390 [facility] NEW [facility] PORT 7 HOME HOME 85%/>02 MEDICAL MEDICAL CONC AT EQUIPME EQUIPME PRSC FLW RATE FINAL G9638 NEW HAMPSHIRE MELA REPORTS 7 MEDICAL W/O DOC IMAGING 1/MORE ASS DOSE REDUCTION TECH FINAL RPT G9557 [address] MELA CT/MRI 7 MEDICAL CHEST/NCK IMAGING /U/S NO ASS THR NOD<1.[address] THORAX 75652 NEW HAMPSHIRE MELA W/O 7 MEDICAL CONTRAST IMAGING MATERIAL ASS O2 CONC 1 E1390 [facility] NEW [facility] PORT 6 HOME HOME 85%/>02 MEDICAL MEDICAL CONC AT EQUIPME EQUIPME PRSC FLW RATE O2 CONC 1 E1390 [facility] [place] 6 HOME HOME 85%/>02 MEDICAL MEDICAL CONC AT EQUIPME EQUIPME PRSC FLW RATE SPMTRY 01611 [place] BUCK W/VC 6 MEDICAL EXPIRATOR SERV Y ANA MARIA FOUNDATIO W/WO MXML N VOL VNTJ PULMONARY 00311 SAMIA JANE STRESS 6 [place]ICAL [place] [address] SAMIA JANE DIFFUSING 6 MEDICAL CAPACITY SERV FOUNDATIO N PLETHYSMO 95481 SAMIA JANE GRAPHY 6 MEDICAL LUNG SERV VOLUMES FOUNDATIO W/WO N AIRWAY RESIST IIV4 VACC 98345 [facility] DISTRICT VIRUS 0.5 HLTH DEPT HLTH DEPT ML DOS SINDHU SINDHU FOR IM USE ANTINUCLE 53950 LANDEN SCHUSTER AR 6 [facility] ANTIBODIE INC INC S CARLOS ANTIBODY 16269 LANDEN SCHUSTER IDENTIFIC 6 [facility] ATION INC [place] [address] LANDEN SCHUSTER THYROID 6 [facility] STIMULATI INC INC NG HORMONE TSH ALPHA-1-A 85472 LANDEN SCHUSTER NTITRYPSI 6 [facility] N INC INC PHENOTYPE BLOOD 25748 LANDEN SCHUSTER COUNT 6 [facility] COMPLETE INC INC AUTO&AUTO DIFRNTL WBC COLLECTIO 77173 LANDEN SCHUSTER N VENOUS 6 [facility] BLOOD INC INC VENIPUNCT URE COMPREHEN 96662 LANDEN SCHUSTER SIVE 6 [facility] METABOLIC INC INC PANEL O2 CONC 1 E1390 [facility] [place] [address] HOME HOME 85%/>02 MEDICAL MEDICAL CONC AT EQUIPME [facility] FLW RATE O2 CONC 1 E1390 [facility] [address] HOME HOME 85%/>02 MEDICAL MEDICAL CONC AT EQUIPME [facility] FLW RATE O2 CONC 1 E1390 [facility] [place] [address] HOME HOME 85%/>02 MEDICAL MEDICAL CONC AT EQUIPME [facility] FLW RATE ADMN SET A7005 YOUR YOUR W/SM VOL 6 PHARMACY [facility]AC[facility] NEBULIZR NON-DISPB L O2 CONC 1 E1390 [facility] [place] [address] HOME HOME 85%/>02 MEDICAL MEDICAL CONC AT EQUIPME [facility] FLW RATE O2 CONC 1 E1390 SHAQ [...] EQUIPME FLWMTR HUMIDFR&M ASK TUBING A7037 [facility] NEW USED WITH 5 HOME HOME POSITIVE MEDICAL MEDICAL AIRWAY EQUIPME EQUIPME PRESSURE DEVICE FILTER A7038 [facility] NEW DISPBL 5 HOME HOME USED MEDICAL MEDICAL W/POS EQUIPME EQUIPME ARWAY PRESSURE DEVICE CUSHN A7032 SHAQ NEW NASAL 5 HOME HOME MASK MEDICAL MEDICAL INTERFACE EQUIPME EQUIPME REPLACEME NT ONLY EACH ADMN SET A7005 YOUR YOUR W/SM VOL 5 PHARMACY [facility]Y [facility] NEBULIZR NON-DISPB L O2 CONC 1 E1390 [...] RENT; EQUIPME EQUIPME FLWMTR HUMIDFR&M ASK ECG 57355 MONTERROSO MONTERROSO ROUTINE 5 JOSS JOSS ECG W/LEAST 12 LDS I&R ONLY RADIOLOGI 56143 MONTERROSO MONTERROSO C 5 JOSS JOSS EXAMINATI ON CHEST SINGLE VIEW FRONTAL O2 CONC 1 E1390 [facility] [place] 5 HOME HOME 85%/>02 MEDICAL MEDICAL CONC AT EQUIPME EQUIPME PRSC FLW RATE RADIOLOGI 60350 [facility] [place] KOSTELIC C 5 RADIOLOGY KALPES[place] EXAMINATI ON CHEST SINGLE VIEW FRONTAL ECG 43563 [facility] ROUTINE 5 NE HEALTH [place]PES[place] ECG MEDICAL W/LEAST G 12 LDS I&[place] [address] [facility] [place] ANGIOGRAP 5 RADIOLOGY [place] HY CHEST W/[place] [address] [facility] [place] ANGIOGRAP 5 RADIOLOGY GUTIERREZ HY CHEST W/CONTRAS T/NONCONT RAST CT ANGIO 73452 [facility] [place] ABD&PLVIS 5 RADIOLOGY GUTIERREZ CNTRST MTRL W/WO CNTRST IMG INITIAL 93964 [facility] 5 NE HEALTH CARE/DAY MEDICAL 70 G MINUTES RADIOLOGI 05893 [facility] [place] SIMEON C 5 RADIOLOGY ISHMAEL EXAMINATI ON CHEST SINGLE VIEW FRONTAL RADIOLOGI 63565 [facility] [place] S[place] C 5 RADIOLOGY ISHMAEL EXAMINATI ON CHEST SINGLE VIEW FRONTAL DOPPLER [address] ECHOCARD 5 A PULSE ASSOCIATE WAVE S PSC W/SPECTRA L DISPLAY SPCL STN 68338 KAHLIL PICHARDO 2 I&R 5 [facility]/ PSC ENZYME/IM CYT ASCENDING 11308 EM IV EM IV AORTA 5 OLY OLY GRF W/CARD BYP & VALVE SSP ANES HRT [address] PERICRD 5 A SAC&GRT ASSOCIATE VSLS S PSC W/FICTION WRITER OXTJ >1MO PO ECHO [address] TRANSESOP 5 A HAG R-T ASSOCIATE 2D W/PRB S PSC IMG ACQUISJ I&R DOP [address] ECHOCARD 5 A COLOR ASSOCIATE FLOW S PSC VELOCITY MAPPING INITIAL 16887 EM IV EM IV INPATIENT 5 OLY OLY CONSULT NEW/ESTAB PT 55 [place] [address] [place] [facility] PSC GROSS&[place] [address] [place] AYOOB AND ANGIOGRAP 5 MEDICAL HY CHEST SERV W/CONTRAS FOUNDATIO T/NONCONT N RAST CT ANGIO 23255 [place] AYOO[place] AND ABD&PLVIS 5 MEDICAL CNTRST [...] AT EQUIPME EQUIPME PRSC FLW RATE C-REACTIV 99877 LANDEN SCHUSTER E PROTEIN 5 [facility] INC INC ANTIBODY 17415 LANDEN SCHUSTER DIPHTHERI 5 [facility] A INC INC ANTIBODY 56806 LANDEN SCHUSTER TETANUS 5 [place] [address] LANDEN SCHUSTER GAMMAGLOB 5 [facility] [place] [address] LANDEN SCHUSTER FREE 5 [facility] THYROXINE INC INC BLOOD 07789 LANDEN SCHUSTER COUNT 5 [facility] COMPLETE INC INC AUTO&[place] [address] LANDEN SCHUSTER THYROID 5 [facility] STIMULATI INC INC NG HORMONE TSH SEDIMENTA 43018 LANDEN SCHUSTER TION RATE 5 [facility] RBC INC INC NON-AUTOM ATED CUL BACT 28065 LANDEN SCHUSTER XCPT 5 [facility] URINE INC INC BLOOD/STO OL AEROBIC ISOL GAMMAGLOB 13535 LANDEN SCHUSTER ULIN 5 [facility] IMMUNOGLO INC INC BULIN SUBCLASSE S TUBING A7037 [facility] SHAQ USED WITH 5 HOME HOME POSITIVE MEDICAL MEDICAL AIRWAY EQUIPME EQUIPME PRESSURE DEVICE FULL FACE A7030 SHAQ SHAQ MASK 5 HOME HOME USED MEDICAL MEDICAL W/POS EQUIPME EQUIPME ARWAY PRESS DEVICE EA PRESSURIZ 94031 FERMÍN FERMÍN ED/NONPRE 5 ALTHEA ALTHEA SSURIZED INHALATIO N TREATMENT PERCUTANE 12684 FERMÍN FERMÍN OUS TESTS 5 ALTHEA ALTHEA W/ALLERGE PHYLICIA EXTRACTS BRNCDILAT 39204 FERMÍN FERMÍN RSPSE 5 ALTHEA ALTHEA SPMTRY PRE&POST- BRNCDILAT ADMN RADIOLOGI 79889 [facility] EXAM 5 MEDICAL BELINDA CHEST 2 IMAGING VIEWS ASS FRONTAL&L ATERAL COMPREHEN 80281 LANDEN SCHUSTER SIVE 5 [facility] METABOLIC INC INC PANEL ADMN SET A7005 YOUR YOUR W/SM VOL 5 PHARMACY PHARMACY [facility] NEBULIZR NON-DISPB L CYANOCOBA 59891 LANDEN LANDEN JOSE RAFAEL 5 [facility] VITAMIN INC INC B-12 25 23208 LANDEN LANDEN HYDROXY 5 [facility] INCLUDES INC INC FRACTIONS IF PERFORMED ANTIBODY 61872 LANDEN SCHUSTER BACTERIUM 5 [facility] NOT INC INC ELSEWHERE SPECIFIED ANTIBODY 48169 LANDEN SCHUSTER RUBELLA 5 [facility] INC INC COMPLEMEN 40823 LANDEN SCHUSTER T TOTAL 5 [facility] HEMOLYTIC INC INC SMR PRIM 01645 LANDEN LANDEN SRC 5 [facility] GRAM/GIEM INC INC SA STAIN BCT FUNGI/ELPIDIO L COLLECTIO 67825 LANDEN SCHUSTER N VENOUS 5 [facility] BLOOD INC INC VENIPUNCT URE HEADGEAR A7035 [facility] NEW USED 5 HOME HOME W/POSITIV MEDICAL MEDICAL E AIRWAY EQUIPME EQUIPME PRESSURE DEVICE HEMAGGLUT 51300 LANDEN SCHUSTER INATION 5 [facility] INHIBITIO INC INC N TEST ERICKA CULTURE 12126 LANDEN SCHUSTER FNGI 5 [facility] MOLD/YEAS INC INC T PRSMPTV OTH XCPT BLOOD NITRIC 76974 FERMÍN FERMÍN OXIDE 5 ALTHEA [place] GAS [...] AT EQUIPME EQUIPME PRSC FLW RATE BRNCDILAT 10807 FERMÍN FERMÍN RSPSE 4 [place]THEA [place] SPMTRY PRE&POST- BRNCDILAT ADMN PRESSURIZ 82651 FERMÍN FERMÍN ED/NONPRE 4 [place] SSURIZED [...] 85%/>02 MEDICAL MEDICAL CONC AT EQUIPME EQUIPME [facility] FLW RATE CYSTO 67505 [facility]SIMPLE 4 [facility] LIZZY REMOVAL ADULT & STONE & PED STENT ECG 68025 [facility] RICHEY RICHEY PEDRO ROUTINE 4 MD ECG CONSULTIN W/LEAST G SRV 12 LDS I&R ONLY O2 CONC 1 E1390 [facility] [place] 4 HOME HOME 85%/>02 MEDICAL MEDICAL CONC AT EQUIPME EQUIPME [facility] FLW RATE CYSTO 34313 [facility] W/INSERT 4 [facility] BALL URETERAL ADULT & STENT PED DILATION 53445 [facility] NEPHROSTO 4 [facility] BALL MY/URETER ADULT & /URETHRA PED RS&I CYSTO 83843 [facility] W/URETERO 4 [facility] BALL SCOPY ADULT & W/LITHOTR PED IPSY ANES 35819 NEW HAMPSHIRE MARISEL CHAVEZ TRURL 4 ANESTHESI FRAGMNTJ A GROUP MANJ&/RMV PS L URETERAL CALCULUS ANTIBODY 03161 LANDEN SCHUSTER BACTERIUM 4 [facility] NOT INC INC ELSEWHERE SPECIFIED 25 88014 LADNEN SCHUSTER HYDROXY 4 [facility] INCLUDES INC INC FRACTIONS IF PERFORMED CYANOCOBA 25926 LANDEN SCHUSTER JOSE RAFAEL 4 [facility] VITAMIN INC INC B-12 COMPREHEN 06760 LANDEN SCHUSTER SIVE 4 [facility] METABOLIC INC INC PANEL RADIOLOGI 50545 LANDEN SCHUSTER C EXAM 4 [facility] CHEST 2 INC INC VIEWS FRONTAL&[place] [address] LANDEN SCHUSTER THYROID 4 [facility] STIMULATI [place] [address] LANDEN SCHUSTER GAMMAGLOB 4 [facility] [place] [address] LANDEN SCHUSTER FREE 4 [facility] THYROXINE INC INC C-REACTIV 67195 LANDEN SCHUSTER E PROTEIN 4 [facility] INC INC GAMMAGLOB 40449 LADNEN SCHUSTER ULIN 4 [facility] IMMUNOGLO INC INC BULIN SUBCLASSE S SEDIMENTA 55390 LANDEN SCHUSTER TION RATE 4 [facility] RBC INC INC NON-AUTOM ATED BLOOD 41043 LANDEN SCHUSTER COUNT 4 [facility] COMPLETE INC INC AUTO&AUTO DIFRNTL WBC PRESSURIZ 59576 FERMÍN FERMÍN ED/NONPRE 4 [place] SSURIZED INHALATIO N TREATMENT BRNCDILAT 27550 FERMÍN FERMÍN RSPSE 4 [place] SPMTRY [...] AT EQUIPME EQUIPME PRSC FLW RATE PRESSURIZ 35513 FERMÍN FERMÍN ED/NONPRE 3 [place] SSURIZED INHALATIO N TREATMENT BRNCDILAT 58833 FERMÍN FERMÍN RSPSE 3 [place] SPMTRY PRE&POST- BRNCDILAT ADMN ADMN SET A7005 YOUR YOUR W/SM VOL 3 PHARMACY [facility] NEBULIZR NON-DISPB L O2 CONC 1 E1390 [...] AT EQUIPME EQUIPME PRSC FLW RATE PYELOPLAS 24705 [facility] TY SIMPLE 3 N N [facility] LAPAROSCO 46229 [facility] PY 3 NEW HAMPSHIRE LIZZY RADICAL ADULT & NEPHRECTO PED MY INJECTION J1580 [facility] 3 N N GARAMYCIN [facility] GENTAMICI N UP TO 80 MG INJECTION J2370 [facility] 3 N N PHENYLEPH [facility] HOSPITA UP TO 1 ML INJECTION J2405 [facility] 3 N N ONDANSETR [facility] HOSPITA PER 1 MG INJECTION J1100 [facility] 3 N N DEXAMETHO [facility] HOSPITA SODIUM PHOSPHATE 1 MG INJECTION J2001 [facility] 3 N N LIDOCAINE [facility] HOSPITA INTRAVENO US INFUS 10 MG CUSHN A7032 [facility] NEW NASAL 3 HOME HOME MASK MEDICAL MEDICAL INTERFACE EQUIPME EQUIPME REPLACEME NT ONLY EACH INJECTION J2710 [facility] 3 N N NEOSTIGMI [facility] HOSPITA METHYLSUL FATE UP TO 0.5 MG INJECTION J3010 [facility] FENTANYL 3 N N CITRATE [facility] 0.[facility] MG HOSPITA HOSPITA ANES 10795 CHRISTIE AWAD XTRPRTL 3 ANESTHESI AN LOWER ABD A GROUP UR TRACT PS RENAL DON NFRCT COLLECTIO 19496 [facility] N VENOUS 3 N N BLOOD [facility] VENIP[facility]CT [facility]ITA HOSPITA URE URNLS DIP 94784 [facility] 3 N N STICK/TAB [facility] HOSPITA REAGENT AUTO MICROSCOP Y ECG 76625 [facility] ROUTINE 3 N N ECG [facility] W/LEAST HOSPITA HOSPITA 12 LDS TRCG ONLY W/O I&R COMPREHEN 13908 [facility] SIVE 3 N N METABOLIC [facility] PANEL [facility]OS[facility]ITA HOSPITA BLOOD 90265 [facility] COUNT 3 N N COMPLETE [facility] AUTO&AUTO HOSPITA [place] [address] PATHOLOGY CRISTINA SURG 3 & OLY PATHOLOGY CYTOLOGY LAB GROSS&MANJIT ROSCOPIC EXAM EGD 16298 LANDEN SCHUSTER TRANSORAL 3 [facility] BIOPSY [place] SINGLE/[place] [address] LANDEN MCKEONON INFUSION 3 [facility] THERAPY/P INC INC ROPHYLAXI S /DX 1ST TO 1 HR ANES 80034 [facility] 3 ANESTH ENDOSCOPY [place] [address] LANDEN MCKEONON INFUSION 3 [facility] THERAPY INC INC PROPHYLAX IS/DX EA HOUR SPECIAL 66313 PATHOLOGY CRISTINA STAIN 3 & OLY GROUP [address] [facility] I&R URINE 46510 LANDEN SCHUSTER 3 [facility] TEST INC INC VISUAL COLOR CMPRSN METHS O2 CONC 1 E1390 [facility] [place] 3 HOME HOME 85%/>02 MEDICAL MEDICAL CONC AT EQUIPME EQUIPME PRSC FLW RATE DSTR 31705 ERICA VASCELLO NROLYTC 3 VASCELLO ALONDRA NANO AGEE [facility] PARVERTEB FCT SNGL CRVCL/THO RA DSTR 10778 ERICA VASCELLO NROLYTC 3 VASCELLO ALONDRA NAN[place] AGEE [facility] FCT ADDL CRVCL/THO RA MODERATE 90997 ERICA VASCELLO SEDATJ 3 VASCELLO ALONDRA SAME PSC PHYS/QHP 5/>YRS INIT 30 MIN SPMTRY 25707 FERMÍN FERMÍN W/VC 3 ALTHEA ALTHEA EXPIRATOR Y ANA MARIA W/WO MXML VOL VNTJ BOTULINUM J0585 HINDUISM JONEL TOXIN 3 NEUROLOGY [facility] TYPE A CENTER PER UNIT BRIANNA CHEMODERV 37365 HINDUISM JONEL ATE 3 NEUROLOGY RAFAEL FACIAL/TR CENTER IGEM/CERV BRIANNA MUSC MIGRAINE O2 CONC 1 E1390 [facility] [place] 3 HOME HOME 85%/>02 MEDICAL MEDICAL CONC AT EQUIPME EQUIPME [facility] FLW RATE MODERATE 82212 ERICA VASCELLO SEDATJ 3 VASCELLO ALONDRA SOULEYMANE AGEE PSC PHYS/QHP 5/>YRS INIT 30 MIN NJX 42859 ERICA VASCELLO DX/THER 3 VASCELLO ALONDRA AGT PVRT PSC FACET JT CRV/THRC 2ND LEVEL NJX 37621 ERICA VASCELLO DX/THER 3 VASCELLO ALONDRA AGT PVRT PSC FACET JT CRV/THRC 1 LEVEL O2 CONC 1 E1390 [facility] [place] 2 HOME HOME 85%/>02 MEDICAL MEDICAL CONC AT EQUIPME EQUIPME [facility] FLW RATE O2 CONC 1 E1390 [facility] [place] 2 HOME HOME 85%/>02 MEDICAL MEDICAL CONC AT EQUIPME EQUIPME [facility] FLW RATE HEADGEAR A7035 [facility] NEW USED 2 HOME HOME W/POSITIV MEDICAL MEDICAL E AIRWAY EQUIPME EQUIPME PRESSURE DEVICE ELECTRICA A4595 J & L J & L L 2 HOME HOME STIMULATO MEDICAL MEDICAL R EQUIPMENT EQUIPMENT SUPPLIES 2 LEAD PER MONTH FULL FACE A7030 [facility] ORDONEZRELL MASK 2 HOME HOME USED MEDICAL MEDICAL W/POS EQUIPME EQUIPME ARWAY PRESS DEVICE EA PRESSURIZ 78676 FERMÍN FERMÍN ED/NONPRE 2 [place] SSURIZED INHALATIO N TREATMENT BRNCDILAT 49288 FERMÍN FERMÍN RSPSE 2 [place] SPMTRY PRE&POST- BRNCDILAT ADMN BOTULINUM J0585 HINDUISM JONEL TOXIN 2 [facility] BRIANNA CYCLIC 41229 [facility] CITRULLIN 2 DIAGNOSTI DIAGNOSTI ATED CS CS PEPTIDE ANTIBODY CREATINE 22606 [facility] KINASE 2 DIAGNOSTI DIAGNOSTI TOTAL CS CS COLLECTIO 83463 [facility] N VENOUS 2 DIAGNOSTI DIAGNOSTI BLOOD CS CS VENIPUNCT URE O2 CONC 1 E1390 [facility] [place] 2 HOME HOME 85%/>02 MEDICAL MEDICAL CONC AT EQUIPME EQUIPME PRSC FLW RATE SEDIMENTA 51195 [facility] TION RATE 2 DIAGNOSTI DIAGNOSTI RBC CS CS AUTOMATED C-REACTIV 36621 [facility] E PROTEIN 2 DIAGNOSTI DIAGNOSTI CS CS IMMUNOASS 89460 [facility] AY 2 DIAGNOSTI DIAGNOSTI ANALYTE CS CS, [place] [address] LANDEN SCHUSTER THYROID 2 [facility] STIMULATI [place] [address] LANDEN SCHUSTER GAMMAGLOB 2 [facility] [place] [address] LANDEN SCHUSTER GAMMAGLOB 2 [facility] IGA INC INC IGD IGG IGM EACH BLOOD 16539 LANDEN SCHUSTER COUNT 2 [facility] COMPLETE INC INC AUTO&AUTO DIFRNTL WBC GAMMAGLOB 15658 LANDEN SCHUSTER ULIN 2 [facility] IMMUNOGLO INC INC BULIN SUBCLASSE S 25 69420 LANDEN SCHUSTER HYDROXY 2 [facility] INCLUDES INC INC FRACTIONS IF PERFORMED RADIOLOGI 61124 LANDEN SCHUSTER C EXAM 2 [facility] CHEST 2 INC INC VIEWS FRONTAL&L ATERAL BRNCDILAT 21042 FERMÍN FERMÍN RSPSE 2 [place] SPMTRY PRE&POST- BRNCDILAT ADMN PRESSURIZ 19749 FERMÍN FERMÍN ED/NONPRE 2 [place] SSURIZED INHALATIO N TREATMENT ADMN SET A7005 MT MED MT MED W/SM VOL 2 EQUIPMENT EQUIPMENT NONFILTR INC INC NEBULIZR NON-DISPB L DEMO&/GABI 30220 FERMÍN FERMÍN L OF PT 2 [place] UTILIZ AERSL GEN/NEB/I NHLR/IP NEBULIZER E0570 [facility] MT MED WITH 2 EQUIPMENT EQUIPMENT COMPRESSO INC INC R FLUOROSCO 05503 ERICA VASCELLO PIC 2 VASCELLO ALONDRA GUIDANCE MD SCHWARTZ NEEDLE PLACEMENT ADD ON INJECTION ERICA VASCELLO 2 VASCELLO ALONDRA SINGLE/ML PSC T TRIGGER POINT 3/> MUSCLES IIV3 75578 LANDEN SCHUSTER VACCINE 2 [facility] VIRUS 0.5 [place] [address] LANDEN SCHUSTER UREA 2 [facility] NITROGEN INC INC QUANTITAT JADON UROGRAPHY 34407 NEW [place]AM[facility]HIRE JOVANNY IV W/WO 2 MEDICAL BELINDA KUB W/WO IMAGING TOMOGRAPH ASS Y CREATININ 22084 LANDEN SCHUSTER E BLOOD 2 [facility] INC INC CYSTO 77555 [facility] SM[facility] W/SIMPLE 2 [facility] LIZZY REMOVAL ADULT & STONE & PED STENT CONTINUOU E0601 [facility] NEW S 2 HOME HOME POSITIVE MEDICAL MEDICAL AIRWAY EQUIPME EQUIPME PRESSURE DEVICE ANES 96153 [place]RE AWAD TRURL 2 ANESTHESI AN FRAGMNTJ A GROUP MANJ&/RMV PS L URETERAL CALCULUS CYSTO 72020 [facility] W/URETERO 2 [facility] LIZZY SCOPY ADULT & W/RMVL/MA PED [place] STONES DILATION 71909 [facility] NEPHROSTO 2 [facility] LIZZY MY/URETER ADULT & /URETHRA PED RS&I LEVEL III 75386 PATHOLOGY SALAZAR VAN SURG 2 & PATHOLOGY CYTOLOGY LAB GROSS&MANJIT ROSCOPIC EXAM CYSTO 98684 [facility] SM[facility] W/INSERT 2 [facility] LIZZY URETERAL ADULT & STENT PED CYSTO 62481 [facility] W/INSERT 2 [facility] URETERAL ADULT & STENT PED LITHOTRIP 70937 [facility] SY 2 [facility] XTRCORP ADULT & SHOCK PED WAVE FLUOROSCO 93189 [facility] PY SPX UP 2 [facility] TO 1 ADULT & HOUR PED PHYS/QHP TIME ECG 86680 PEDRO RICHEY RICHEY PEDRO ROUTINE 2 MD ECG CONSULTIN W/LEAST G SERV 12 LDS I&R ONLY RADEX 76675 [facility] [place] SCALF OLY ABDOMEN 1 2 RADIOLOGY ANTEROPOS TERIOR VIEW ANES 44082 [facility] LITHOTRP 2 ANESTHESI XTRCORP A GROUP SHOCK PS WAVE W/O WATER BATH URINE 07315 [facility] SCHUSTER 2 [facility] TEST INC INC VISUAL COLOR CMPRSN METHS URNLS DIP 32174 [facility] SCHUSTER 2 [facility] STICK/TAB INC INC LET REAGENT AUTO MICROSCOP Y BLOOD 60935 LANDEN SCHUSTER COUNT 2 [facility] COMPLETE INC INC AUTO&AUTO DIFRNTL WBC CONTINUOU E0601 SHAQ NEW S 2 HOME HOME POSITIVE MEDICAL MEDICAL AIRWAY EQUIPME EQUIPME PRESSURE DEVICE SUSCEPTIB 54371 LANDEN SCHUSTER LTY STDY 2 [facility] ANTIMICRB INC INC IAL MICRO/[place] [address] LANDEN SCHUSTER LIPASE 2 [facility] INC INC AMB A0427 ÓSCAR BROWN SERVICE 2 AMBULANCE AMBULANCE ALS SERVICE SERVICE EMERGENCY TRANSPORT LEVEL 1 URINE 79121 L[facility] SCHUSTER 2 [facility] TEST INC INC VISUAL COLOR CMPRSN METHS 3D 69878 LANDEN SCHUSTER RENDERING 2 [facility] INC INC W/INTERP& POSTPROC DIFF WORK STATION GROUND 07-16-201 A0425 [facility] 2 AMBULANCE AMBULANCE PER SERVICE SERVICE STATUTE MILE THERAPEUT 36610 LANDEN SCHUSTER IC 2 [facility] INJECTION INC INC IV PUSH EACH NEW DRUG URNLS DIP 43760 L[facility]EN MCKEONON 2 [facility] STICK/TAB INC [place] [address] LANDEN SCHUSTER ABDOMEN & 2 [facility] PELVIS INC INC W/O CONTRAST MATERIAL THER 54629 LANDEN SCHUSTER PROPH/DX 2 [facility] NJX IV INC INC PUSH SINGLE/1S T SBST/DRUG COMPREHEN 73847 LANDEN SCHUSTER SIVE 2 [facility] METABOLIC INC INC PANEL BLOOD 10883 LANDEN SCHUSTER COUNT 2 [facility] COMPLETE INC INC AUTO&[place] [address] LANDEN SCHUSTER AMYLASE 2 [facility] INC INC CULTURE 16293 LANDEN SCHUSTER BACTERIAL 2 [facility] INC INC QUANTTATI VE COLONY COUNT URINE CULTURE 41466 LANDEN SCHUSTER BCT 2 [facility] MEM [...] MEDICAL AIRWAY EQUIPME EQUIPME PRESSURE DEVICE DSTR 64423 ERICA ERICA NROLYTC 2 VASCELLO FRANCHESCA ROSAST SNGL CRVCL/THO RA DSTR 44290 ERICA ERICA NROLYTC 2 VASCELLO VASCELLO AGNT MD PSC MD PSC PARVERTEB FCT ADDL CRVCL/THO RA CONTINUOU E0601 SHAQ NEW S 2 HOME HOME POSITIVE MEDICAL MEDICAL AIRWAY EQUIPME EQUIPME PRESSURE DEVICE NJX 34859 ERICA ERICA DX/THER 2 VASCELLO VASCELLO AGT PVRT [facility] PSC FACET JT CRV/THRC 2ND LEVEL NJX 64060 ERICA ERICA DX/THER 2 VASCELLO VASCELLO AGT PVRT [facility] PSC FACET JT CRV/THRC 1 LEVEL CONTINUOU E0601 SHAQ NEW S 2 HOME HOME POSITIVE MEDICAL MEDICAL AIRWAY EQUIPME EQUIPME PRESSURE DEVICE NJX 25068 ERICA ERICA DX/THER 2 VASCELLO VASCELLO AGT PVRT [facility] PSC FACET JT CRV/THRC 2ND LEVEL NJX 21965 ERICA ERICA DX/THER 2 VASCELLO VASCELLO AGT PVRT [facility] PSC FACET JT CRV/THRC 1 LEVEL CUSHN A7032 SHAQ NEW NASAL 2 HOME HOME MASK MEDICAL MEDICAL INTERFACE EQUIPME EQUIPME REPLACEME NT ONLY EACH MODERATE 96787 ERICA ERICA SEDATJ 2 VASCELLO VASCELLO SOULEYMANE AGEE [facility] PHYS/QHP 5/>YRS INIT 30 MIN DSTR 43395 ERICA ERICA NROLYTC 2 VASCELLO VASCELLO NANO AGEE [facility] PARVERTEB FCT ADDL LMBR/SACR AL DSTR 14100 ERICA ERICA NROLYTC 2 VASCELLO VASCELLO NANO AGEE [facility] PARVERTEB FCT SNGL LMBR/SACR AL CONTINUOU E0601 SHAQ NEW S 2 HOME HOME POSITIVE MEDICAL MEDICAL AIRWAY EQUIPME EQUIPME PRESSURE DEVICE DSTR 04197 ERICA ERICA NROLYTC 2 VASCELLO VASCELLO [place] [facility] PARVERTEB FCT ADDL LMBR/SACR AL DSTR 99920 ERICA ERICA NROLYTC 2 VASCELLO VASCELLO AGNT MD EFREN AGEE PSC PARVERTEB FCT SNGL LMBR/SACR AL CREATINE 71971 LANDEN SCHUSTER KINASE MB 2 [facility] FRACTION INC INC ONLY BLOOD 94817 LANDEN SCHUSTER COUNT 2 [facility] COMPLETE INC INC AUTO&[place] [address] LANDEN LANDEN TROPONIN 2 [facility] QUANTITAT INC INC JADON BASIC 73857 LANDEN LANDEN METABOLIC 2 [facility] PANEL INC INC CALCIUM TOTAL RADIOLOGI 33443 [facility] C 2 MEDICAL MEDICAL EXAMINATI IMAGING IMAGING ON CHEST ASS ASS SINGLE VIEW FRONTAL CREATINE 34876 LANDEN SCHUSTER KINASE 2 [facility] TOTAL INC INC ECG 86150 LANDEN SCHUSTER ROUTINE 2 [facility] W/LEAST P P 12 LDS I&R ONLY NJX 73000 ERICA ERICA DX/THER 2 VASCELLO VASCELLO AGT PVRT MD EFREN AGEE PSC FACET JT LMBR/SAC 3+ LEVEL NJX 10883 ERICA ERICA DX/THER 2 VASCELLO VASCELLO AGT PVRT MD EFREN AGEE PSC FACET JT LMBR/SAC 1 LEVEL NJX 50610 ERICA ERICA DX/THER 2 VASCELLO VASCELLO AGT PVRT MD EFREN AGEE PSC FACET JT LMBR/SAC 2ND LEVEL CUSHN A7032 SHAQ NEW NASAL 2 HOME HOME MASK MEDICAL MEDICAL INTERFACE EQUIPME EQUIPME REPLACEME NT ONLY EACH CONTINUOU E0601 HSAQ NEW S 2 HOME HOME POSITIVE MEDICAL [...] E AIRWAY EQUIPME EQUIPME PRESSURE DEVICE POLYSOM 93285 LANDEN SCHUSTER 6/>YRS 1 [facility] SLEEP 4/> INC INC ADDL SHWETHA ATTND IIV3 60666 LANDEN SCHUSTER VACCINE 1 [facility] VIRUS 0.5 ML DOSAGE IM USE WRIST L3908 SHAQ NEW HAND 1 HOME HOME ORTHOSIS MEDICAL MEDICAL EXT EQUIPME EQUIPME CONTROL COCK-UP PREFAB RADEX 30671 NEW HAMPSHIRE JOVANNY WRIST 1 MEDICAL BELINDA COMPLETE IMAGING MINIMUM 3 ASS VIEWS RADEX 68715 NEW HAMPS[facility]RE JOVANNY WRIST 1 MEDICAL BELINDA COMPLETE IMAGING MINIMUM 3 ASS VIEWS RADIOLOGI 27966 NEW HAMPSHIRE JOVANNY C 1 MEDICAL BELINDA EXAMINATI IMAGING ON KNEE ASS 1/2 VIEWS RADIOLOGI 68253 NEW HAMPSHIRE JOVANNY C 1 MEDICAL BELINDA EXAMINATI IMAGING ON KNEE 3 ASS VIEWS 3D 19527 [facility] JOVANNY RENDERING 1 MEDICAL BELINDA IMAGING W/INTERP& ASS POSTPROC DIFF WORK STATION RADEX 22302 NEW HAMPSHIRE JOVANNY WRIST 1 MEDICAL BELINDA COMPLETE IMAGING MINIMUM 3 ASS VIEWS SLINGS A4565 KEVIN L.P. KEVIN L.P. 1 CLTX DSTL 24514 GRISELDA ZEINAMei BAB RADIAL 1 EMERGENCY FX/EPIPHY SERVICES SL SEP W/[place] [address] [facility] JOVANNY MAXILLOFA 1 MEDICAL BELINDA CIAL W/[place] [address] [facility] PETTEY 1 PHYSICIAN JAM RADIAL&UL S GROUP JOCE SHAFT FRACTURES W/O MAN RADEX 13753 LANDEN SCHUSTER WRIST 2 1 [place] [address] LANDEN SCHUSTER INFUSION 1 [facility] THER INC INC PROPH ADDL [place] L [place] [address] LANDEN SCHUSTER INFUSION 1 [facility] THERAPY/P INC INC ROPHYLAXI S /DX 1ST TO 1 HR BLOOD 63828 LANDEN SCHUSTER COUNT 0 [facility] COMPLETE INC INC AUTO&AUTO DIFRNTL WBC MRI BRAIN 21996 JAZMINE Mcgrath JOVANNY BRAIN 0 JOVANNY BELINDA STEM W/O CONTRAST MATERIAL RHEUMATOI 88302 LANDEN MCKEONON D FACTOR 0 [facility] QUANTITAT INC INC JADON CREATINE 89416 LANDEN LANDEN KINASE 0 [facility] TOTAL INC INC ANTINUCLE 10598 LANDEN SCHUSTER AR 0 [facility] ANTIBODIE INC INC S CARLOS C-REACTIV 82288 LANDEN SCHUSTER E PROTEIN 0 [facility] INC INC PROTEIN 90151 LANDEN SCHUSTER ELECTROPH 0 [facility] ORETIC INC INC FRACTJ&QU ANTJ SERUM SCREENING G0202 [facility] MAMMOGRAP IMAGING HY JERRY ASS INCL CAD WHEN PERFORMD - 04730 [facility] AIDED 0 MEDICAL BELINDA DETECTION IMAGING ASS SCREENING MAMMOGRAP HY BASIC 90345 LANDEN SCHUSTER METABOLIC 0 [facility] [place] [address] LANDEN SCHUSTER MAGNESIUM 0 [place] [address] LANDENFRANCA SCHUSTER FERRITIN 0 [facility] INC INC BLOOD 89242 LANDEN SCHUSTER COUNT 0 [facility] COMPLETE INC INC AUTO&AUTO DIFRNTL WBC IRON 27648 LANDEN MCKEONON BINDING 0 [facility] CAPACITY INC INC POTASSIUM 67280 LANDENFRANCA SCHUSTER URINE 0 [place] [address] LANDEN SCHUSTER IRON 0 [place] [address] PATHOLOGY PATHOLOGY SURG 0 & & PATHOLOGY CYTOLOGY CYTOLOGY LAB LAB GROSS&AMNJIT ROSCOPIC EXAM ENDOSCOPI 4542 LANDEN SCHUSTER C 0 [facility] POLYPECTO INC INC MY OF LARGE INTESTINE [ENDOSCOP 4836 LANDEN SCHUSTER IC] 0 [facility] [place] [address] LANDENFRANCA SCHUSTER INFUSION 0 [facility] THERAPY INC INC PROPHYLAX IS/DX EA HOUR URINE 66259 LANDEN SCHUSTER 0 [facility] TEST INC [place] [address] LANDEN SCHUSTER INFUSION 0 [facility] THERAPY/P INC INC ROPHYLAXI S /DX 1ST TO 1 HR COLSC FLX 69625 [place] KELI ANT W/RMVL 0 MEDICAL OF TUMOR SERV POLYP FOUNDATIO LESION SNARE TQ IIV3 36325 LANDEN SCHUSTER VACCINE 0 [facility] VIRUS 0.5 ML DOSAGE IM USE SPECIAL 90389 PATHOLOGY PATHOLOGY STAIN 0 & & GROUP 1 CYTOLOGY CYTOLOGY MICROORGA LAB LAB [facility] I&[place] [address] LANDEN LANDEN INFUSION 0 [facility] THERAPY INC [place] PROPHYLAX IS/[place] [address] LANDEN SCHUSTER INFUSION 0 [facility] THERAPY/P INC INC ROPHYLAXI S /DX 1ST TO 1 HR EGD 29227 SAMIA DICKEY ANT TRANSORAL 0 MEDICAL BIOPSY SERV SINGLE/MU FOUNDATIO LTIPLE ESOPHAGOG 4516 LANDEN SCHUSTER ASTRODUOD 0 [facility] ENOSCOPY [place] [address] PATHOLOGY PATHOLOGY SURG 0 & & PATHOLOGY CYTOLOGY CYTOLOGY LAB LAB GROSS&MANJIT ROSCOPIC EXAM GONADOTRO 19218 LANDEN SCHUSTER PIN 0 [facility] CHORIONIC INC INC QUALITATI VE BLOOD 04258 LANDEN SCHUSTER COUNT 0 [facility] COMPLETE INC INC AUTO&AUTO DIFRNTL WBC BLOOD 24742 LANDEN SCHUSTER COUNT 0 [facility] COMPLETE INC INC AUTO&AUTO DIFRNTL WBC BLOOD 07700 LANDEN SCHUSTER COUNT 0 [facility] COMPLETE INC INC AUTO&AUTO DIFRNTL WBC POTASSIUM 39569 LANDEN LANDEN SERUM 0 [facility] PLASMA/[place] [address] CHRISTIE PETTY UPR W/WO 0 MEDICAL BELINDA GLUCOSE IMAGING W/SM ASS INTEST FOLLW-THR U RADEX 47445 LANDEN MCKEONON UPPER GI 0 [facility] W/WO INC INC GLUCAGON/ DELAY IMAGES W/KUB BLOOD 38660 LANDENFRANCA SCHUSTER OCCULT 0 [facility] PEROXIDAS INC INC E ACTV QUAL FECES 1-3 SPEC BLOOD 40546 LANDEN SCHUSTER COUNT 0 [facility] COMPLETE INC INC AUTO&[place] [address] LANDEN SCHUSTER FOLIC 0 [facility] [place] [address] LANDEN SCHUSTER THYROID 0 [facility] STIMULATI INC INC NG HORMONE TSH POTASSIUM 49263 LANDEN MCKEONON SERUM 0 [facility] PLASMA/WH INC INC OLE BLOOD CYANOCOBA 61074 LANDEN SCHUSTER JOSE RAFAEL 0 [facility] [place] B-12 [place] [address] LANDEN SCHUSTER INFUSION 9 [facility] THERAPY INC INC PROPHYLAX IS/DX EA HOUR ANESTHESI 59142 Kitty STEVENS HERNIA 9 ANESTH HAZEL A REPAIR [place] [address] LANDEN SCHUSTER INFUSION 9 [facility] THERAPY/P INC INC ROPHYLAXI S /DX 1ST TO 1 HR THERAPEUT 16890 LANDEN SCHUSTER IC 9 [facility] INJECTION INC INC IV PUSH EACH NEW DRUG RPR 1ST 48077 LANDEN SCHUSTER INGUN 9 [facility] HRNA AGE INC INC 5 YRS/> INCARCERA SREE OTH & OPN 5304 LANDEN SCHUSTER REP 9 [facility] INDIRECT INC INC ING HERNIA W/GRAFT/P ROSTH BLOOD 59330 LANDEN SCHUSTER COUNT 9 [facility] COMPLETE INC INC AUTO&AUTO DIFRNTL WBC GONADOTRO 69609 LANDEN SCHUSTER PIN 9 [facility] CHORIONIC INC INC QUALITATI VE BASIC 36546 LANDEN SCHUSTER METABOLIC 9 [facility] PANEL INC INC CALCIUM TOTAL Encounters Encounter Start End Date Code Location Performer Type Date [facility]OSPITAL [facility] - [facility] 7 [facility] OUTPATI[facility] T [facility] - 7 7 [facility] OUTPATIEN INC T OFFICE 39548 [facility] OUTPATIEN 7 7 T NEW 45 MINUTES OFFICE 96062 [facility] OUTPATIEN 7 7 [facility] T VISIT 5 INC MINUTES [facility] - 7 7 [facility] OUTPATIEN INC T OFFICE 99578 [facility] HARPEL OUTPATIEN 7 7 PHYSICIAN T VISIT S GROUP 25 MINUTES OFFICE 56422 [facility] ALLFABIANO OUTPATIEN 7 7 PHYSICIAN T NEW 20 S GROUP MINUTES [facility] - 7 7 [facility]PAT[facility] - 7 7 [facility] OUTPATIEN INC T [facility] - 7 7 [facility] OUTPATIEN INC [facility] - 7 7 [facility] OUTPATIEN INC T INITIAL 44257 [facility] PREVENTIV 7 7 PHYSICIAN E S GROUP MEDICINE NEW PATIENT 40-64YRS OFFICE 33851 [facility] RICHARD OUTPATIEN 7 7 PHYSICIAN T VISIT S GROUP 40 MINUTES [facility]OSP[facility] - 7 7 [facility] OUTPATIEN INC T [facility] - 7 7 [facility]PAT[facility]EN INC T [facility] - 7 7 [facility] OUTPATIEN INC [facility] - 7 7 [facility] OUTPATIEN INC T EMERGENCY 42282 [facility] HIGH/URGE NT SEVERITY [facility] - 7 7 [facility] OUTPATIEN INC T OFFICE 60615 MALIK PIZARRO OUTPATIEN 7 7 FAMILY T NEW 30 CARE MINUTES CENTER OFFICE 44390 MEÑO WILDER OUTPATILALITA 7 7 T VISIT 15 MINUTES HOSPITAL [facility] - 7 7 [facility] OFF[facility] 14376 [facility] FITZ[facility]I OUTPATIEN 6 6 NURSE CK BING T VISIT PRACTITIO 40 NER GR MINUTES [facility]OSP[facility] 25053 [facility] FITZ[facility] CONSULTAT 6 6 NURSE CK BING ION PRACTITIO NEW/ESTAB NER GR PATIENT 60 MIN [facility]OSPITAL [facility] - 6 6 [facility] T OFFICE 53860 MEÑO MEÑO OUTPATIEN 6 6 OLY OLY T VISIT 15 MINUTES EMERGENCY 47410 MONTERROSO MONTERROSO DEPT 5 5 JOSS JOSS VISIT HIGH SEVERITY& THREAT FUNCJ EMERGENCY 99666 [facility] ATKINSON DEPT 5 5 VISIT HIGH SEVERITY& THREAT FUNCJ OFFICE 02225 FERMÍN KOVACS OUTPATIEN 5 5 ALTHEA ALTHEA T VISIT 40 MINUTES HOSPITAL [facility] - 5 5 [facility] 21698 MEÑO VEEPATIEN 4 4 OLY OLY T VISIT 15 MINUTES OFFICE 13369 MEÑO WILDER OUTPATIEN 4 4 OLY OLY T VISIT 15 MINUTES OFFICE 08027 MEÑO BAILEY 4 4 OLY OLY T VISIT 15 MINUTES OFFICE 05885 MEÑO WILDER OUTPATIEN 4 4 OLY OLY T VISIT 15 MINUTES OFFICE 86331 FERMÍN FERMÍN OUTPATIEN 4 4 ALTHEA ALTHEA T VISIT 40 MINUTES OFFICE 76848 [facility] CONSULTAT 4 4 NEW HAMPSHIRE LIZZY ION ADULT & NEW/ESTAB PED PATIENT 40 MIN EMERGENCY 78203 GRISELDA IYER DEPT 4 4 EMERGENCY MANJIT VISIT SERVICES HIGH SEVERITY& THREAT [facility] L[facility]EN - 4 4 [facility] OUTPATIEN INC T OFFICE 00088 FERMÍN KOVACS OUTPATIEN 4 4 ALTHEA ALTHEA T VISIT 40 MINUTES OFFICE 06356 MEÑO WILDER OUTPATIEN 3 3 OLY OLY T VISIT 15 MINUTES OFFICE 00522 MEÑO WILDER OUTPATIEN 3 3 OLY OLY T VISIT 15 MINUTES OFFICE 35844 FERMÍN KOVACS OUTPATIEN 3 3 ALTHEA OH T VISIT 40 MINUTES OFFICE 52256 ARTHRITIS MD ARTEMIO OUTPATIEN 3 3 AND MAN T VISIT OSTEOPORO 15 SIS C MINUTES HOME 87325 [facility] V[facility] EST 3 3 HOME PT HEALTH MOD-HI SEVERITY 40 MINUTES HOME 78287 [facility] VISIT EST 3 3 HOME PT HEALTH MOD-HI SEVERITY 40 MINUTES HOME [facility], 3 3 HOME OUTPATIEN HEALTH T HOME 77633 [facility] VISIT EST 3 3 HOME PT HEALTH MOD-HI SEVERITY 40 MINUTES HOME 53370 [facility] VISIT EST 3 3 HOME PT HEALTH MOD-HI SEVERITY 40 MINUTES [facility] [place] - 3 3 N [facility]PAT[facility]EN [facility] - 3 3 N OUTPATIEN [facility] LANDEN - 3 3 [facility] OUTPATIEN INC T OFFICE 31074 [facility] JUDIE OUTPATIEN 3 3 PHYSICIAN CAM T NEW 30 S GROUP MINUTES OFFICE 92604 FERMÍN FERMÍN OUTPATIEN 3 3 ALTHEA ALTHEA T VISIT 25 MINUTES OFFICE 12971 HINDUISMSue REMY OUTPATIEN 3 3 NEUROLOGY RAFAEL T VISIT CENTER 25 BRIANNA MINUTES OFFICE 10057 FERMÍN KOVACS OUTPATIEN 2 2 ALTHEA ALTHEA T VISIT 25 MINUTES OFFICE 69208 ARTHRITIS MD ARTEMIO CONSULTAT 2 2 AND MAN ION OSTEOPORO NEW/ESTAB SIS C PATIENT 60 MIN [facility]OSPITAL [facility] - 2 2 [facility] OUTPATIEN INC T OFFICE 03230 FERMÍN KOVACS OUTPATIEN 2 2 ALTHEA OH T NEW 60 MINUTES OFFICE 99171 ERICA VASCELLO OUTPATIEN 2 2 VASCELLO ALONDRA T VISIT [facility] 25 MINUTES HOSPITAL [facility] - 2 2 [facility] OUTPATIEN INC T OFFICE 56481 HINDUISMSue REMY OUTPATIEN 2 2 HEALTH RAFAEL T VISIT MEDICAL 25 GROUP MINUTES OFFICE 06556 MEÑO WILDER OUTPATIEN 2 2 OLY OLY T VISIT 25 MINUTES OFFICE 06127 [facility] CONSULTAT 2 2 NEW HAMPSHIRE LIZZY ION ADULT & NEW/ESTAB PED PATIENT 40 MIN [facility] - 2 2 [facility] OUTPATIEN INC T OFFICE 51164 MEÑO WILDER OUTPATIEN 2 2 OLY OLY T VISIT 15 MINUTES EMERGENCY 13016 GRISELDA QUINTERO DEPT 2 2 EMERGENCY EMERSON VISIT SERVICES HIGH SEVERITY& THREAT FUNJ EMERGENCY 62757 [facility] 2 2 [facility] DEPARTMEN INC T VISIT HIGH/URGE NT SEVERITY [facility]OSPITAL [facility] - 2 2 [facility] OUTPATIEN INC T EMERGENCY 22622 [facility] 2 2 [facility] DEPARTMEN INC T VISIT HIGH/URGE NT SEVERITY EMERGENCY 61231 GRISELDA MOREAU DEPT 2 2 EMERGENCY VISIT SERVICES HIGH SEVERITY& THREAT FUN [facility]OSP[facility] - 2 2 [facility] OUTPATIEN [facility] H[facility]PITAL [facility] - 1 1 [facility] OUTPATIEN [facility] OFFICE 58377 MISSARY MEÑO OUTPATIEN 1 1 OLY OLY T VISIT 15 MINUTES [facility]OSPITAL [facility] - 1 1 [facility] OUTPATIEN [facility] - 1 1 [facility] OUTPATIEN [facility] OFFICE 63235 HINDUISM JONEL OUTPATIEN 1 1 NEUROLOGY RAFAEL T VISIT CENTER 25 BRIANNA MINUTES [facility]OSPITAL [facility] - 1 1 [facility] OUTPATIEN [facility] EMERGENCY 12574 [facility] 1 1 [facility] T VISIT [facility]OW/MODER SEVERITY [facility] - 1 1 [facility] OUTPATIEN [facility] EMERGENCY 66869 GRISELDA KELLY 1 1 EMERGENCY DEPARTMEN SERVICES T VISIT HIGH/URGE NT SEVERITY OFFICE 85660 MEÑO ABEBESARY OUTPATIEN 1 1 OLY OLY T NEW 30 MINUTES [facility]OSPITAL [facility] - 1 1 [facility] OUTPATIEN [facility] - 0 0 [facility] OUTPATIEN [facility] - 0 0 [facility] OUTPATIEN [facility] OFFICE 20242 HINDUISM JONEL OUTPATIEN 0 0 NEUROLOGY RAFAEL T VISIT CENTER 25 BRIANNA MINUTES HOSP[facility] - 0 0 [facility] OUTPATIEN [facility] - 0 0 [facility] OUTPATIEN [facility] HOSP[facility] - 0 0 [facility]PATIEN [facility] LANDEN - 0 0 [facility] OUTPATIEN [facility] HOSP[facility] L[facility] - 0 0 [facility]PATIEN [facility] LANDEN - 0 0 [facility]PATIEN [facility] - 0 0 [facility]PATIEN [facility] L[facility] - 0 0 [facility]PATIEN [facility] L[facility]EN - 0 0 [facility] OUTPATIEN [facility] OFFICE 23217 ZACARIAS REMY CONSULTAT 0 0 NEUROLOGY RAFAEL ION CENTER NEW/ESTAB BRIANNA PATIENT 80 MIN OFFICE 15723 DEANDRE VEEPATIEN 0 0 SHARMAINE SHARMAINE T VISIT 15 MINUTES OFFICE 46500 DEANDRE CARRERA OUTPATIEN 0 0 SHARMAINE A SHARMAINE A T VISIT 15 MINUTES [facility]OSPITAL [facility] - 9 9 [facility]EN [facility] L[facility] - 9 9 [facility] OUTPATIEN [facility] OFFICE 50357 JUDIE DIMAS CONSULTAT 9 9 , LISA GONZALEZ ION NEW/ESTAB PATIENT 60 MIN OFFICE 68461 DEANDRE CARRERA OUTPATIEN 9 9 SHARMAINE A SHARMAINE A T VISIT 15 MINUTES OFFICE 02452 DEANDRE CARRERA OUTPATIEN 9 9 SHARMAINE A SHARMAINE A T VISIT 15 MINUTES OFFICE 18813 DEANDRE CARRERA OUTPATIEN 9 9 SHARMAINE A SHARMAINE A T VISIT 15 MINUTES
--- OUTSIDE RECORDS SUMMARY | 2017-01-06 02:56 | External Medical Summary Rpt | CCD ---
Author Author , MYRIAM MIGUEL Address Unknown Phone [email or web address] Immunization Name Date Rout CVX Reac Dose Comm Prov Is Faci e tion ent ider Refu lity Give sed n Infl 09-2 Intr 0.5 Hist GSHA No GSHA uenz 2-20 amus mL oric NE NE a 17 cula al Quad r Info rmat W/Pr ion es - Sour ce Unsp ecif ied
--- OUTSIDE RECORDS SUMMARY | 2017-01-06 02:56 | External Medical Summary Rpt | CCD ---
Author Author , MYRIAM MIGUEL Address Unknown Phone [email or web address] Immunization Name Date Rout CVX Reac Dose Comm Prov Is Faci e tion ent ider Refu lity Give sed n Infl 09-2 Intr 0.5 Hist GSHA No GSHA uenz 2-20 amus mL oric NE NE a 17 cula al Quad r Info rmat W/Pr ion es - Sour ce Unsp ecif ied
--- OUTSIDE RECORDS SUMMARY | 2017-01-06 02:57 | External Medical Summary Rpt ---
Author Author [facility], [employer] Organization [facility] Address Unknown Phone Unavailable Results Troponin I.cardiac [Mass/volume] in Serum or Plasma Observa Value Referen Units Interpr Notes Date tion ce etation Range Troponin 0.00 - ng/mL Normal No Dec 30 I.cardiac 0.06 informati 2016 1:25 on in PM [Mass/vol source ume] in data Serum or Plasma CBC W Auto Differential panel in Blood Observa Value Referen Units Interpr Notes Date tion ce etation Range Basophils 0 - 0.2 K/MM3 Normal No Dec 30 informati 2016 9:45 [#/volume on in AM ] in source Blood by data Automated count Basophils 0.1 - 2.0 % Normal No Dec 30 informati 2016 9:45 leukocyte on in AM s in source Blood by data Automated count Eosinophi 0.0 - 0.4 K/mm3 Normal No Dec 30 ls informati 2016 9:45 [#/volume on in AM ] in source Blood by data Automated count Eosinophi 0.1 - % Normal No Dec 30 ls/100 12.0 informati 2016 9:45 leukocyte on in AM s in source Blood by data Automated count Granulocy 1.8 - 7.8 K/mm3 Normal No Dec 30 diogo informati 2016 9:45 [#/volume on in AM ] in source Blood by data Automated count Granulocy 37.0 - % Normal No Dec 30 diogo/100 80.0 informati 2016 9:45 leukocyte on in AM s in source Blood by data Automated count Hematocri 37.0 - % High No Dec 30 t [Volume 47.0 informati 2016 9:45 on in AM Fraction] source of Blood data Hemoglobi 12.2 - g/dL High No Dec 30 n 16.2 informati 2016 9:45 [Mass/vol on in AM ume] in source Blood data Lymphocyt 0.7 - 4.5 K/mm3 Normal No Dec 30 es informati 2016 9:45 [#/volume on in AM ] in source Unspecifi data ed specimen by Automated count Lymphocyt 10 - 50.0 % Normal No Oct 6 es informati 2016 9:45 [#/volume on in AM ] in source Unspecifi data ed specimen by Automated count Erythrocy 27 - 31.2 pg High No Oct 6 te mean informati 2016 9:45 corpuscul on in AM ar source hemoglobi data n [Entitic mass] Erythrocy 31.8 - g/dl Low No Oct 6 te mean 35.4 informati 2017 9:45 corpuscul on in AM ar source hemoglobi data n concentra tion [Mass/vol ume] by Automated count Erythrocy 82.2 - fl High No Oct 6 te mean 97.8 informati 2017 9:45 corpuscul on in AM ar volume source [Entitic data volume] by Automated count Monocytes 0.1 - 1.0 K/mm3 Normal No Oct 6 informati 2016 9:45 [#/volume on in AM ] in source Blood by data Automated count Monocytes 1.7 - 9.3 % Normal No Oct 6 /100 informati 2016 9:45 leukocyte on in AM s in source Blood by data Automated count Platelet 7.4 - fl Normal No Oct 6 mean 10.4 informati 2017 9:45 volume on in AM [Entitic source volume] data in Blood by Automated count Platelets 142 - 424 K/mm3 Low No Oct 6 informati 2016 9:45 [#/volume on in AM ] in source Blood data Erythrocy 4.2 - 5.4 M/mm3 Normal No Oct 6 diogo informati 2016 9:45 [#/volume on in AM ] in source Amniotic data fluid Erythrocy 11.5 - % Normal No Oct 6 te 17.5 informati 2016 9:45 distribut on in AM ion width source [Entitic data volume] by Automated count Leukocyte 4.8 - K/MM3 Low No Oct 6 s 10.8 informati 2016 9:45 [#/volume on in AM ] in source Blood data Basic metabolic panel in Blood Observa Value Referen Units Interpr Notes Date tion ce etation Range Urea 7 - 18 mg/dL Normal No Sep 6 nitrogen informati 2017 9:00 [Mass/vol on in AM ume] in source Serum or data Plasma Calcium 8.5 - mg/dL Normal No Sep 6 [Mass/vol 10.1 informati 2017 9:00 ume] in on in AM Serum or source Plasma data Chloride 98 - 107 mmoL/L Normal No Sep 6 [Moles/vo informati 2017 9:00 lume] in on in AM Serum or source Plasma data Carbon 21.0 - mmoL/L Normal No Sep 6 dioxide, 32.0 informati 2017 9:00 total on in AM [Moles/vo source lume] in data Serum or Plasma Creatinin 0.55 - mg/dL Normal No Sep 6 e 1.02 informati 2017 9:00 [Mass/vol on in AM ume] in source Serum or data Plasma Estimated 59- ML/MIN No REFERENCE Sep 6 informati RANGE: 2017 9:00 glomerula on in >60 AM r source ML/MIN/1. filtratio data 73 SQUARE n rate METERSIf (GF this patient is -A merican, then multiply theresult by 1.210. Glucose 74 - 106 mg/dL Normal No Sep 6 [Mass/vol informati 2017 9:00 ume] in on in AM Serum or source Plasma data Potassium 3.5 - 5.1 mmoL/L Normal No Sep 6 informati 2017 9:00 [Moles/vo on in AM lume] in source Serum or data Plasma Sodium 136 - 145 mmoL/L Normal No Sep 6 [Moles/vo informati 2017 9:00 lume] in on in AM Serum or source Plasma data CBC W Auto Differential panel in Blood Observa Value Referen Units Interpr Notes Date tion ce etation Range Basophils 0 - 0.2 K/MM3 Normal No Sep 6 informati 2017 9:00 [#/volume on in AM ] in source Blood by data Automated count Basophils 0.1 - 2.0 % Normal No Sep 6 /100 informati 2017 9:00 leukocyte on in AM s in source Blood by data Automated count Eosinophi 0.0 - 0.4 K/mm3 Normal No Sep 6 ls informati 2016 9:00 [#/volume on in AM ] in source Blood by data Automated count Eosinophi 0.1 - % Normal No Sep 6 ls/100 12.0 informati 2016 9:00 leukocyte on in AM s in source Blood by data Automated count Granulocy 1.8 - 7.8 K/mm3 Normal No Sep 6 diogo informati 2016 9:00 [#/volume on in AM ] in source Blood by data Automated count Granulocy 37.0 - % Normal No Sep 6 diogo/100 80.0 informati 2017 9:00 leukocyte on in AM s in source Blood by data Automated count Hematocri 37.0 - % High No Sep 6 t [Volume 47.0 informati 2017 9:00 on in AM Fraction] source of Blood data Hemoglobi 12.2 - g/dL Normal No Sep 6 n 16.2 informati 2017 9:00 [Mass/vol on in AM ume] in source Blood data Lymphocyt 0.7 - 4.5 K/mm3 Normal No Sep 6 es informati 2017 9:00 [#/volume on in AM ] in source Unspecifi data ed specimen by Automated count Lymphocyt 10 - 50.0 % Normal No Sep 6 es informati 2017 9:00 [#/volume on in AM ] in source Unspecifi data ed specimen by Automated count Erythrocy 27 - 31.2 pg High No Sep 6 te mean informati 2016 9:00 corpuscul on in AM ar source hemoglobi data n [Entitic mass] Erythrocy 31.8 - g/dl Normal No Sep 6 te mean 35.4 informati 2017 9:00 corpuscul on in AM ar source hemoglobi data n concentra tion [Mass/vol ume] by Automated count Erythrocy 82.2 - fl High No Sep 6 te mean 97.8 informati 2017 9:00 corpuscul on in AM ar volume source [Entitic data volume] by Automated count Monocytes 0.1 - 1.0 K/mm3 Normal No Sep 6 informati 2017 9:00 [#/volume on in AM ] in source Blood by data Automated count Monocytes 1.7 - 9.3 % Normal No Sep 6 /100 informati 2017 9:00 leukocyte on in AM s in source Blood by data Automated count Platelet 7.4 - fl Normal No Sep 6 mean 10.4 informati 2017 9:00 volume on in AM [Entitic source volume] data in Blood by Automated count Platelets 142 - 424 K/mm3 Low No Sep 6 informati 2017 9:00 [#/volume on in AM ] in source Blood data Erythrocy 4.2 - 5.4 M/mm3 Normal No Sep 6 diogo informati 2016 9:00 [#/volume on in AM ] in source Amniotic data fluid Erythrocy 11.5 - % Normal No Sep 6 te 17.5 informati 2017 9:00 distribut on in AM ion width source [Entitic data volume] by Automated count Leukocyte 4.8 - K/MM3 Low No Sep 6 s 10.8 informati 2016 9:00 [#/volume on in AM ] in source Blood data Choriogonadotropin.beta subunit [Units] in 24 hour Urine Observa Value Referen Units Interpr Notes Date tion ce etation Range Choriogon NEG No No No Sep 6 adotropin informati informati informati 2016 9:00 .beta on in on in on in AM subunit source source source [Units] data data data in 24 hour Urine Urea nitrogen [Mass/volume] in Serum or Plasma Observa Value Referen Units Interpr Notes Date tion ce etation Range Urea 7 - 18 mg/dL Normal No Nov 02 nitrogen informati 2016 [Mass/vol on in 11:23 AM ume] in source Serum or data Plasma CREATININE Observa Value Referen Units Interpr Notes Date tion ce etation Range Creatinin 0.55 - mg/dL Normal No Nov 02 e 1.02 informati 2016 [Mass/vol on in 11:23 AM ume] in source Serum or data Plasma Estimated 59- ML/MIN No REFERENCE Nov 02 informati RANGE: 2017 glomerula on in >60 11:23 AM r source ML/MIN/1. filtratio data 73 SQUARE n rate METERSIf (GF this patient is -A merican, then multiply theresult by 1.210. Drugs identified in Urine by Screen method Observa Value Referen Units Interpr Notes Date tion ce etation Range Positive urine drug screen samples are stored for 7 days. Contact the Lab if confirmation of positives is needed. Ampheta NEGATIV <1000 ng/mL No No Oct 12 mine E informa informa 2016 [Presen tion in tion in 2:30 PM ce] in source source Urine data data by Screen method Barbitura <200 ng/mL No No Oct 12 diogo informati informati 2016 2:30 [Mass/vol on in on in PM ume] in source source Urine by data data Screen method Benzodiaz 200 ng/mL ng/mL High This is Oct 12 epines an 2017 2:30 [Mass/vol UNCONFIRM PM ume] in ED Serum or result. Plasma by This Screen result is method for medicalpu rposes and/or treatment only. Cocaine <300 ng/g No No Oct 12 [Mass/vol informati informati 2016 2:30 ume] in on in on in PM Unspecifi source source ed data data specimen Methadone <300 ng/mL No No Oct 12 informati informati 2017 2:30 [Mass/vol on in on in PM ume] in source source Unspecifi data data ed specimen Opiates <300 ng/mL No No Oct 12 [Mass/vol informati informati 2016 2:30 ume] in on in on in PM Unspecifi source source ed data data specimen Phencycli <25 ng/mL No No Oct 12 dine informati informati 2017 2:30 [Mass/vol on in on in PM ume] in source source Unspecifi data data ed specimen 11-Hydr NEGATIV <50 ng/mL No No Oct 12 oxy E informa informa 2017 delta-9 tion in tion in 2:30 PM source source tetrahy data data drocann abinol [Presen ce] in Unspeci fied specime n Activated clotting time in Blood by Coagulation assay Observa Value Referen Units Interpr Notes Date tion ce etation Range Activated 74 - 125 SEC High No Sep 01 clotting alert informati 2017 time in on in 10:23 AM Blood by source Coagulati data on assay Lipid 1996 panel in Serum or Plasma Observa Value Referen Units Interpr Notes Date tion ce etation Range Cholester < 200 mg/dL High No Sep 01 ol informati 2017 6:20 [Moles/vo on in AM lume] in source Unspecifi data ed specimen Cholester 40 - 60 MG/DL Normal No Sep 01 ol in HDL informati 2017 6:20 on in AM [Mass/vol source ume] in data Serum or Plasma Cholester 0 - 130 mg/dL Normal No Sep 01 ol in LDL informati 2017 6:20 on in AM [Mass/vol source ume] in data Serum or Plasma by calculati on Triglycer 30 - 200 mg/dL Normal No Sep 01 ginette informati 2017 6:20 [Moles/vo on in AM lume] in source Serum or data Plasma Cholester 0 - 40 No Normal No Sep 01 ol in informati informati 2017 6:20 VLDL on in on in AM [Mass/vol source source ume] in data data Serum or Plasma CBC W Auto Differential panel in Blood Observa Value Referen Units Interpr Notes Date tion ce etation Range Basophils 0 - 0.2 K/MM3 Normal No Aug 8 informati 2016 6:20 [#/volume on in AM ] in source Blood by data Automated count Basophils 0.1 - 2.0 % Normal No Doug 8 /100 informati 2017 6:20 leukocyte on in AM s in source Blood by data Automated count Eosinophi 0.0 - 0.4 K/mm3 Normal No Aug 8 ls informati 2016 6:20 [#/volume on in AM ] in source Blood by data Automated count Eosinophi 0.1 - % Normal No Aug 8 ls/100 12.0 informati 2017 6:20 leukocyte on in AM s in source Blood by data Automated count Granulocy 1.8 - 7.8 K/mm3 Normal No Aug 8 diogo informati 2017 6:20 [#/volume on in AM ] in source Blood by data Automated count Granulocy 37.0 - % Normal No Aug 8 diogo/100 80.0 informati 2016 6:20 leukocyte on in AM s in source Blood by data Automated count Hematocri 37.0 - % High No Aug 8 t [Volume 47.0 informati 2017 6:20 on in AM Fraction] source of Blood data Hemoglobi 12.2 - g/dL No No Aug 8 n 16.2 informati informati 2017 6:20 [Mass/vol on in on in AM ume] in source source Blood data data Lymphocyt 0.7 - 4.5 K/mm3 Normal No Aug 8 es informati 2016 6:20 [#/volume on in AM ] in source Unspecifi data ed specimen by Automated count Lymphocyt 10 - 50.0 % Normal No Aug 8 es informati 2016 6:20 [#/volume on in AM ] in source Unspecifi data ed specimen by Automated count Erythrocy 27 - 31.2 pg High No Aug 8 te mean informati 2017 6:20 corpuscul on in AM ar source hemoglobi data n [Entitic mass] Erythrocy 31.8 - g/dl Normal No Aug 8 te mean 35.4 informati 2017 6:20 corpuscul on in AM ar source hemoglobi data n concentra tion [Mass/vol ume] by Automated count Erythrocy 82.2 - fl High No Aug 8 te mean 97.8 informati 2017 6:20 corpuscul on in AM ar volume source [Entitic data volume] by Automated count Monocytes 0.1 - 1.0 K/mm3 Normal No Aug 8 informati 2017 6:20 [#/volume on in AM ] in source Blood by data Automated count Monocytes 1.7 - 9.3 % Normal No Doug 8 /100 informati 2017 6:20 leukocyte on in AM s in source Blood by data Automated count Platelet 7.4 - fl Normal No Aug 8 mean 10.4 informati 2017 6:20 volume on in AM [Entitic source volume] data in Blood by Automated count Platelets 142 - 424 K/mm3 Low No Aug 8 informati 2017 6:20 [#/volume on in AM ] in source Blood data Erythrocy 4.2 - 5.4 M/mm3 Normal No Aug 8 diogo informati 2017 6:20 [#/volume on in AM ] in source Amniotic data fluid Erythrocy 11.5 - % Normal No Aug 8 te 17.5 informati 2017 6:20 distribut on in AM ion width source [Entitic data volume] by Automated count Leukocyte 4.8 - K/MM3 No No Aug 8 s 10.8 informati informati 2017 6:20 [#/volume on in on in AM ] in source source Blood data data Basic metabolic panel in Blood Observa Value Referen Units Interpr Notes Date tion ce etation Range Urea 7 - 18 mg/dL No No Aug 8 nitrogen informati informati 2017 6:20 [Mass/vol on in on in AM ume] in source source Serum or data data Plasma Calcium 8.5 - mg/dL Normal No Sep 01 [Mass/vol 10.1 informati 2017 6:20 ume] in on in AM Serum or source Plasma data Chloride 98 - 107 mmoL/L Normal No Aug 8 [Moles/vo informati 2017 6:20 lume] in on in AM Serum or source Plasma data Carbon 21.0 - mmoL/L Normal No Sep 01 dioxide, 32.0 informati 2017 6:20 total on in AM [Moles/vo source lume] in data Serum or Plasma Creatinin 0.55 - mg/dL Normal No Aug 8 e 1.02 informati 2017 6:20 [Mass/vol on in AM ume] in source Serum or data Plasma Creatinin 50 - 200 ML/MIN Normal No Aug 8 e renal informati 2017 6:20 clearance on in AM source predicted data by Cockcroft -Gault formula Estimated 59- ML/MIN No REFERENCE Sep 01 informati RANGE: 2017 6:20 glomerula on in >60 AM r source ML/MIN/1. filtratio data 73 SQUARE n rate METERSIf (GF this patient is -A merican, then multiply theresult by 1.210. Glucose 74 - 106 mg/dL High No Sep 01 [Mass/vol informati 2016 6:20 ume] in on in AM Serum or source Plasma data Potassium 3.5 - 5.1 mmoL/L Normal No Sep 01 informati 2016 6:20 [Moles/vo on in AM lume] in source Serum or data Plasma Sodium 136 - 145 mmoL/L Normal No Sep 01 [Moles/vo informati 2016 6:20 lume] in on in AM Serum or source Plasma data Choriogonadotropin.beta subunit [Units] in 24 hour Urine Observa Value Referen Units Interpr Notes Date tion ce etation Range Choriogon NEG No No Meulendyk Aug 31 adotropin informati informati Elieser louis 2017 .beta on in on in ne 10:15 AM subunit source source [Units] data data in 24 hour Urine Troponin I.cardiac [Mass/volume] in Serum or Plasma Observa Value Referen Units Interpr Notes Date tion ce etation Range Troponin 0.00 - ng/mL High Aug 30 I.cardiac 0.06 2016 8:45 CRITICAL PM [Mass/vol RESULTS ume] in Serum or RESU Plasma LTS CALLED TO: [facility] 08/30/16 [address],[place] nda> 0.5 IS CONSISTEN T WITH MYOCARDIA L ISCHEMIA OR INFARCTIO N CBC W Auto Differential panel in Blood Observa Value Referen Units Interpr Notes Date tion ce etation Range Basophils 0 - 0.2 K/MM3 Normal No Aug 30 informati 2016 6:30 [#/volume on in PM ] in source Blood by data Automated count Basophils 0.1 - 2.0 % Normal No Aug 30 informati 2016 6:30 leukocyte on in PM s in source Blood by data Automated count Eosinophi 0.0 - 0.4 K/mm3 High No Doug 6 ls informati 2017 6:30 [#/volume on in PM ] in source Blood by data Automated count Eosinophi 0.1 - % Normal No Doug 6 ls/100 12.0 informati 2017 6:30 leukocyte on in PM s in source Blood by data Automated count Granulocy 1.8 - 7.8 K/mm3 Normal No Doug 6 diogo informati 2017 6:30 [#/volume on in PM ] in source Blood by data Automated count Granulocy 37.0 - % Normal No Doug 6 diogo/100 80.0 informati 2017 6:30 leukocyte on in PM s in source Blood by data Automated count Hematocri 37.0 - % High No Aug 6 t [Volume 47.0 informati 2017 6:30 on in PM Fraction] source of Blood data Hemoglobi 12.2 - g/dL High No Aug 6 n 16.2 informati 2017 6:30 [Mass/vol on in PM ume] in source Blood data Lymphocyt 0.7 - 4.5 K/mm3 Normal No Aug 6 es informati 2017 6:30 [#/volume on in PM ] in source Unspecifi data ed specimen by Automated count Lymphocyt 10 - 50.0 % Normal No Aug 6 es informati 2017 6:30 [#/volume on in PM ] in source Unspecifi data ed specimen by Automated count Erythrocy 27 - 31.2 pg High No Doug 6 te mean informati 2017 6:30 corpuscul on in PM ar source hemoglobi data n [Entitic mass] Erythrocy 31.8 - g/dl Normal No Doug 6 te mean 35.4 informati 2017 6:30 corpuscul on in PM ar source hemoglobi data n concentra tion [Mass/vol ume] by Automated count Erythrocy 82.2 - fl High No Aug 6 te mean 97.8 informati 2017 6:30 corpuscul on in PM ar volume source [Entitic data volume] by Automated count Monocytes 0.1 - 1.0 K/mm3 Normal No Doug 6 informati 2017 6:30 [#/volume on in PM ] in source Blood by data Automated count Monocytes 1.7 - 9.3 % Normal No Doug 6 /100 informati 2017 6:30 leukocyte on in PM s in source Blood by data Automated count Platelet 7.4 - fl Normal No Doug 6 mean 10.4 informati 2017 6:30 volume on in PM [Entitic source volume] data in Blood by Automated count Platelets 142 - 424 K/mm3 Normal No Doug 6 informati 2017 6:30 [#/volume on in PM ] in source Blood data Erythrocy 4.2 - 5.4 M/mm3 Normal No Aug 6 diogo informati 2017 6:30 [#/volume on in PM ] in source Amniotic data fluid Erythrocy 11.5 - % Normal No Aug 6 te 17.5 informati 2017 6:30 distribut on in PM ion width source [Entitic data volume] by Automated count Leukocyte 4.8 - K/MM3 Normal No Aug 6 s 10.8 informati 2017 6:30 [#/volume on in PM ] in source Blood data
--- OUTSIDE RECORDS SUMMARY | 2017-01-06 02:57 | External Medical Summary Rpt ---
[...] Serum or RESU Plasma LTS CALLED TO: [facility] 08/30/16 [address],[place] nda> 0.5 IS CONSISTEN T WITH MYOCARDIA [...]
== END 2016-12-30 14:17 | disposition home or self-care (01) ==
LOC: ER 09:44
PROVIDERS: Emergency Medicine
DX: R07.2 Precordial pain (principal); F17.210 Nicotine dependence, cigarettes, uncomplicated; Z86.73 Personal history of transient ischemic attack (TIA), and cerebral infarction without residual deficits; J44.9 Chronic obstructive pulmonary disease, unspecified; E78.5 Hyperlipidemia, unspecified; I25.2 Old myocardial infarction; I10 Essential (primary) hypertension; Z79.82 Long term (current) use of aspirin; Z79.51 Long term (current) use of inhaled steroids; Z79.899 Other long term (current) drug therapy; Z85.3 Personal history of malignant neoplasm of breast; Z92.21 Personal history of antineoplastic chemotherapy

== ENCOUNTER → 2017-01-03 | Outpatient (CLI) | payer MEDICAID ==
--- NOTE | 2017-01-03 20:01 | RADIOLOGY REPORT PS360 ---
PROCEDURE: 2-D M-mode and color Doppler study INDICATIONS FOR THE TEST: Chest pain COPDX Heart Murmur Tobacco SmokingX Palpitations Fatigue Syncope Edema HypertensionXDiabetes Mellitus Rheumatic Fever SOBX DOEXObesity HyperlipidemiaX Family History HD Additional History CAD,CABG PATIENT INFORMATION HEIGHT: 67 WEIGHT:103 GENDER: Female B/P:104/69 2-D/M-MODE INTERPRETATION: 2-D MEASUREMENTS OBSERVED VALUES IN CMS Right Ventricular Dimension (RVDd) 2.9 Interventricular Septum (Thickness)(IVsd) 1.1 Left Ventricular Internal Dimensions(LVIDd) 3.6 Left Ventricular Posterior Wall (Thickness)(LVPWd) .8 Aortic Root 4.0 Aortic Cusp Separation Left Atrial Dimensions (LAD) 2.0 2D 1. This is technically difficult study because of the patient's factor and poor acoustic windows. 2. Left atrium is mildly enlarged, left ventricle is normal size, there is mild concentric left ventricular hypertrophy, visually estimated ejection fraction 55% with no obvious regional wall motion abnormality. 3. The right atrium and right ventricle are mildly enlarged with normal contractility. 4. The aortic valve is thickened and calcified, leaflet continue to display good mobility. 5. The mitral and tricuspid valve is minimally thickened. 6. Pulmonic valve is poorly visualized. 7. No significant pericardial effusion noted. DOPPLER INTERROGATION: Doppler interrogation of the aortic, mitral and tricuspid valvular presence of mild aortic, mild mitral and tricuspid regurgitation, calculated right ventricular systolic pressure is 43 mmHg, consistent with moderate pulmonary hypertension, grade 1 diastolic dysfunction seen with tissue Doppler evidence of raised left atrial pressure. CONCLUSION: 1. Biatrial enlargement, normal left ventricular size, mild concentric left ventricular hypertrophy, visually estimated ejection fraction 55% with no obvious regional wall motion abnormality, grade 1 diastolic dysfunction seen with tissue Doppler evidence of raised left atrial pressure. 2. Mildly enlarged right ventricle with normal contractility. 3. Mild aortic, mild mitral and tricuspid regurgitation, calculated right ventricular systolic pressure is 43 mmHg consistent with moderate pulmonary hypertension. 4. No significant pericardial effusion noted.
== END ==
LOC: RT 09:43
DX: I25.10 Atherosclerotic heart disease of native coronary artery without angina pectoris (principal); J44.9 Chronic obstructive pulmonary disease, unspecified; I71.4 Abdominal aortic aneurysm, without rupture; I10 Essential (primary) hypertension; E78.5 Hyperlipidemia, unspecified; Z72.0 Tobacco use

== ENCOUNTER → 2017-01-11 | Outpatient (CLI) | payer MEDICAID ==
[~2017-01-11] MED LIST changes: +AUGMENTIN 875-1 EACH PO; +MEDROL 4MG. DOSE4 MG PO; +TESSALON PERLE100 M1 PO
--- NOTE | 2017-01-11 13:43 | RADIOLOGY REPORT PS360 ---
CT HEAD W/O CONTRAST HISTORY: Chronic daily headache FLACO, DAILY HEADACHES, CHRONIC BRONCHITIS,CAD ORDERING PHYSICIAN: HONG MITCHELL PATIENT AGE: 56 years COMPARISON: None TECHNIQUE: Axial images obtained without contrast. Brain and bone windows reviewed. FINDINGS: No midline shift, mass effect, intracranial hemorrhage, hydrocephalus, or extra-axial fluid collection is evident. Calcifications are present within the basal ganglia bilaterally. 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 The calvarium has an unremarkable appearance. No mastoid effusion. The visualized paranasal sinuses are unremarkable. IMPRESSION: 1. No acute intracranial findings. 2. 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
--- NOTE | 2017-01-11 15:58 | RADIOLOGY REPORT PS360 ---
CERVICAL SPINE 6 OR MORE VIEWS CLINICAL INDICATION: NECK AND BACK PAIN ORDERING PHYSICIAN: HONG MITCHELL PATIENT AGE: 56 years COMPARISON: None FINDINGS: There is slight reversal of upper cervical lordosis which may be due to patient positioning or muscle spasm. Degenerative disc disease is present at C3-C4, C4-C5, and C5-C6 and to a lesser degree at C6-C7. Moderate there is mild uncovertebral hypertrophy with right-sided foraminal narrowing at C4-5 C5-6 and C6-C7 and left-sided foraminal narrowing at C3 C4 C4 C5 C5 C6 and C6-C7. No fracture or dislocation. No lytic or blastic change. Flexion and extension views are obtained. In the neutral position there is approximately 2 mm anterolisthesis of C2. This is 1 mm and extension and nearly 3 mm in flexion. No other subluxation apparent. IMPRESSION: 1. Spondylosis of the cervical spine with multilevel degenerative disc disease, endplate and uncovertebral osteophytes with foraminal narrowing as described above. 2. Only mild anterior subluxation at C2-C3 with flexion. 3. Reversal cervical lordosis which may be due to patient positioning or muscle spasm
--- NOTE | 2017-01-11 16:00 | RADIOLOGY REPORT PS360 ---
THORACIC SPINE AP LAT-2VIEW CLINICAL INDICATION: NECK AND BACK PAIN ORDERING PHYSICIAN: HONG MITCHELL PATIENT AGE: 56 years COMPARISON: None FINDINGS: There is minimal upper thoracic curvature convex right mid thoracic curvature convex left. No acute fracture or dislocation is evident. No lytic or blastic change. There is mild degenerative disc disease of the mid and lower thoracic spine. IMPRESSION: 1. Mild thoracic spondylosis with mild degenerative disc disease of the mid and lower thoracic spine and mild thoracic scoliosis. 2. No acute fracture
== END ==
LOC: RAD 11:57
DX: R51 Headache (principal); G47.33 Obstructive sleep apnea (adult) (pediatric); J42 Unspecified chronic bronchitis; I25.10 Atherosclerotic heart disease of native coronary artery without angina pectoris

== ENCOUNTER 2017-01-16 16:11 | Emergency (ER) | payer MEDICAID ==
[~2017-01-16] VITALS: Ht 172.7 cm; Wt 49.0 kg
[~2017-01-16 16:11] MED LIST changes: -AUGMENTIN 875-1 EACH PO; -MEDROL 4MG. DOSE4 MG PO; -TESSALON PERLE100 M1 PO
--- OUTSIDE RECORDS SUMMARY | 2017-01-16 16:19 | External Medical Summary Rpt ---
Author Author [facility] Organization [facility] Address Unknown Phone Unavailable Care Team Providers Care Contact Officer Name Role Phone SHIREEN (REF) PCP [phone] Encounter ELLIS POLO [id number] Date(s): 12/21/16 - 01/10/17 [facility] [address] [place] [address]- Discharge Disposition: OP Self Care or Home Attending Physician: AFSHIN PRICE (REF), MD-OBG Admitting Physician: AFSHIN PRICE (REF), -OBG Referring Physician: AFSHIN PRICE (REF), MD-OBG Reason for Visit OTH ABN AND INCONCLUSIVE FINDINGS ON DX IMAGING OF BREAST Vital Signs No data available for this section Problem List Condition Effective Status Health Informant Dates Status COPD Active (chronic obstructive pulmonary disease)(Con firmed) Aortic Active dissection(C onfirmed) Allergies, Adverse Reactions, Alerts Substance Reaction Severity Status codeine SOB - Shortness of breath Severe Active Hives penicillin SOB - Shortness of breath Severe Active Hives Medications acetaminophen/butalbital/caffeine (Fioricet) aclidinium (Tudorza Pressair) Inhalation Two Times A Day. albuterol (Ventolin HFA) 2 Puff(s) Inhalation Four Times A Day. aspirin (aspirin 81 mg oral delayed release tablet)1 Tablet(s) Oral Every Day. aspirin (aspirin 81 mg oral tablet) 1 Tablet(s) Oral Every Day. chlorproMAZINE (chlorproMAZINE 25 mg oral tablet)1 Tablet(s) Oral Four Times A Day. diazepam (diazepam 10 mg oral tablet)1 Tablet(s) Oral Four Times A Day as needed for anxiety. formoterol-mometasone (Dulera 200 mcg-5 mcg/inh inhalation aerosol)2 Puff(s) Inhalation Two Times A Day. gabapentin (gabapentin 400 mg oral capsule) 1 Capsule(s) Oral Four Times A Day. HYDROmorphone (Dilaudid 4 mg oral tablet)1 Tablet(s) Oral Every 4 Hours as needed for breakthrough pain. Refills: 0.Ordering provider: RAVI HOGAN MD loratadine (loratadine 10 mg oral tablet) 1 Tablet(s) Oral Every Day. metoprolol (Lopressor) 12.5 Milligram(s) Oral every 12 hours. metoprolol (Metoprolol Tartrate 25 mg oral tablet)0.5 Tablet(s) Oral Two Times A Day. Refills: 0.Ordering provider: MARTY MONTERROSO MD montelukast (montelukast 10 mg oral tablet) 1 Tablet(s) Oral Every Evening. multivitamin, (PNV Plus oral tablet)1 Tablet(s) Oral Every Day. oxycodone (oxycodone 10 mg oral tablet)1 Tablet(s) Oral Every 4 Hours as needed Chest Pain. Refills: 0.Ordering provider: MARTY MONTERROSO MD predniSONE (predniSONE 10 mg oral tablet) 1 Tablet(s) Oral Every Day for 10 Day(s). Results No data available for this section Immunizations No data available for this section Procedures No data available for this section Social History Social History Response Type Smoking Status Tobacco Use Within Last Twelve Months Cigarettes; Current every day smoker; Packs/Tins Daily 1; Month Tobacco Last Used has cut down to 2-3 cigarettes post surgery; Assessment and Plan No data available for this section Hospital Discharge Instructions No data available for this section
--- OUTSIDE RECORDS SUMMARY | 2017-01-16 16:19 | External Medical Summary Rpt ---
Author Author [facility] Organization [facility] Address Unknown Phone Unavailable Care Team Providers Care Principal Network Architect Name Role Phone SHIREEN (REF) PCP [phone] Encounter ELLIS POLO [id number] Date(s): 12/21/16 - 01/10/17 [facility] [address] [place] [address]- [phone] Discharge Disposition: OP Self Care or Home Attending Physician: AFSHIN PRICE (REF), MD-OBG Admitting Physician: AFSHIN PRICE (REF), -OBG Referring Physician: AFSHIN PRIEC (REF), MD-OBG Reason for Visit OTH ABN [...]
--- OUTSIDE RECORDS SUMMARY | 2017-01-16 16:32 | External Medical Summary Rpt | CCD ---
Author Author , MYRIAM Organization [facility] Address Unknown Phone Care Team Providers Care Cooking Show Host Name Role Phone TERESO PHYLICIA, TERESO PHYLICIA Unavailable Unavailable MAYO GUTIERREZ, MAYO Unavailable Unavailable GUTIERREZ [facility], Unavailable Unavailable [facility] MD ADVE ULLOA, ARTEMIO, Unavailable Unavailable TE RAMOS JR, JR Unavailable Unavailable [facility], Unavailable Unavailable [facility] ARNOLD, ARNOLD Unavailable Unavailable ARNOLD, ARNOLD Unavailable Unavailable ARNOLD OLY, ARNOLD Unavailable Unavailable OLY ARNOLD OLY, ARNOLD Unavailable Unavailable OLY [facility] AND Unavailable Unavailable [facility], [facility] AYOOB AND, AYOOB AND Unavailable Unavailable [facility] Unavailable Unavailable [facility], [facility] Unavailable Unavailable [facility]ORATORIES, [facility] Unavailable Unavailable LABORATORIES, [facility] Unavailable Unavailable CENTER, [facility] Unavailable Unavailable KELI ANT, KELI ANT Unavailable Unavailable [facility] Unavailable Unavailable SERVICE, [facility] Unavailable Unavailable SERVICE, [facility] EDISON DEMETRIO, EDISON DEMETRIO Unavailable Unavailable EDISON DEMETRIO, EDISON DEMETRIO Unavailable Unavailable SMITH LIZZY, Unavailable Unavailable SMITH LIZZY MERARY, MERARY Unavailable Unavailable [facility] Unavailable Unavailable ADULT & PED, [facility], Unavailable Unavailable [facility] RICHEY PEDRO, RICHEY PEDRO Unavailable Unavailable JOVANNY BELINDA, Unavailable Unavailable JOVANNY BELINDA BUCK, BUCK Unavailable Unavailable JAZMINE C JOVANNY, Unavailable Unavailable JAZMINE C JOVANNY [facility] [place] [facility] Unavailable Un[place], [facility] [place] [facility] Unavailable Unavailable [facility] Unavailable Unavailable JONEL RAFAEL, Unavailable Unavailable JONEL RAFAEL [facility], Unavailable Unavailable [facility] EM IV OLY, EM Unavailable Unavailable IV OLY FRYMAN, FRYMAN Unavailable Unavailable SHIREEN, SHIREEN Unavailable Unavailable SHIREEN MANJIT, SHIREEN Unavailable Unavailable MANJIT [facility] Unavailable Unavailable HOSPITA, [facility] ALEX WAY, ALEX WAY Unavailable Unavailable RECIO LIZZETH, RECIO LIZZETH Unavailable Unavailable HABASH, HABASH Unavailable Unavailable HABASH, HABASH Unavailable Unavailable HARPEL, HARPEL Unavailable Unavailable SIMEON ISHMAEL, SIMEON Unavailable Unavailable ISHMAEL [facility] Unavailable Unavailable CENTER, [facility] Unavailable Unavailable CENTER, [facility] Unavailable Unavailable INC, [facility] Unavailable [facility]available HOSPITAL P, [facility], Unavailable Unavailable [facility] Unavailable Unavailable EQUIPMENT, [facility] Unavailable Unavailable GROUP PS, [facility] Unavailable Unavailable [facility], [facility] Unavailable Unavailable MEDICAL G, [facility] NURSE Unavailable Unavailable PRACTITIONER GR, [facility] NURSE PRACTITIONER GR EMI POSEY, Unavailable Unavailable MARIE MAYORGA Unavailable Unavailable [facility] Unavailable [facility], [facility] CRISTINA OLY, CRISTINA Unavailable Unavailable OLY JEANNETTE SORENSEN MD Un[facility] JOINER CHAVEZ, JOINER CHAVEZ Unavailable Unavailable [facility] Unavailable Unavailable SERVICES, [facility] FERMÍN ALTHEA, Unavailable Unavailable FERMÍN ALTHEA FERMÍN ALTHEA, Unavailable Unavailable FERMÍN ALTHEA [facility], Unavailable Unavailable [facility] Unavailable Unavailable [facility], [facility] PSC DEANDRE ALEMAN Unavailable Unavailable SHARMAINE CONNORS, Unavailable [...] PICHARDO VASJESSIE ALONDRA, Unavailable Unavailable VASCELLO ALONDRA [facility] Unavailable Unavailable [address], [facility] NAEL POSEY, NAEL Unavailable Unavailable [facility] Unavailable Unavailable [facility] Un[facility] Unavailable [facility] MONTERROSO JOSS, MONTERROSO Unavailable Unavailable JOSS MONTERROSO JOSS, MONTERROSO Unavailable Unavailable JOSS WILP, WILP Unavailable Unavailable [facility], Unavailable [facility], Unavailable Unavailable [facility] Purpose Continuity of Care Document - 07-26-2008 through 2016 Problems Code Diagnosis DOS Provider Status R55 SYNCOPE AND 12-13-2016 [facility] COLLAPSE PHYSICIANS GROUP N63 UNSPECIFIED 12-05-2016 [facility] LUMP IN PHYSICIANS BREAST GROUP [id number] ASHD NONDALTON 11-30-2016 [facility] W/UNS INC ANGINA PECTORIS J449 CHRONIC 11-30-2016 [facility]STRUCTIVE [facility] PULMONARY INC DISEASE UNS Z720 TOBACCO USE 11-30-2016 [facility] INC Z955 PRESENCE OF 11-30-2016 [facility] CORONARY [facility] ANGIOPLASTY INC IMPLANT & GRAFT S69430 NON-PRSS 11-25-2016 [facility] D[facility] SKIN OTH SITE LTD BRKDWN SKN N6001 SOLITARY 11-24-2016 [place] CYST OF MEDICAL RIGHT IMAGING ASS BREAST N6002 SOLITARY 11-24-2016 [place] CYST OF MEDICAL LEFT BREAST IMAGING ASS R928 OTH ABNORM 11-24-2016 [place] & MEDICAL INCONCLUSIV IMAGING ASS E FIND ON DX IMAG BREAST U35182 ARCUS 11-23-2016 [facility] SENILIS BILATERAL H2513 AGE-RELATED 11-23-2016 [facility] NUCLEAR CATARACT BILATERAL E91071 REGULAR 11-23-2016 [facility] ASTIGMATISM BILATERAL L570 ACTINIC 11-23-2016 [facility] KERATOSIS D259 LEIOMYOMA 11-17-2016 [facility] OF UTERUS PHYSICIANS UNSPECIFIED GROUP N950 POSTMENOPAU 11-17-2016 [facility] DIANA PHYSICIANS BLEEDING GROUP R21 RASH AND 11-17-2016 [facility] OTHER [facility] NONSPECIFIC INC SKIN ERUPTION S67705 OTHER LONG 11-17-2016 [facility] TERM [facility] CURRENT INC DRUG THERAPY [id number] FX UNS 11-15-2016 [facility] HOME UNS WRIST MEDICAL INITIAL ENC EQUIPME CLOS FX K4090 UNILAT 11-11-2016 [facility] INGUINAL PHYSICIANS CEDRICK W/O GROUP OBST/GANGRE N NOT RECUR I712 THORACIC 11-10-2016 [facility] AORTIC [facility] ANEURYSM INC WITHOUT RUPTURE I716 THORACOABDO 11-09-2016 [facility] MEDICAL AORTIC IMAGING ASS ANEURYSM WITHOUT RUPTURE I728 ANEURYSM OF 11-09-2016 [place] OTHER MEDICAL SPECIFIED IMAGING ASS ARTERIES J432 CENTRILOBUL 11-09-2016 [place] AR MEDICAL EMPHYSEMA IMAGING ASS K449 DIAPHRAGMAT 11-09-2016 [place] IC HERNIA MEDICAL W/O IMAGING ASS OBSTRUCTION OR GANGRENE N2889 OTHER 11-09-2016 [place] SPECIFIED MEDICAL DISORDERS IMAGING ASS OF KIDNEY AND URETER N289 DISORDER OF 11-09-2016 [place] [facility]IDNEY AND MEDICAL URETER IMAGING ASS UNSPECIFIED R921 MAMMO 11-04-2016 [place] CALCIFICATI MEDICAL ON FOUND ON IMAGING ASS DX IMAGING BREAST Z1231 ENCOUNTER 11-04-2016 [place] SCREENING MEDICAL MAMMO MALIG IMAGING ASS NEOPLASM BREAST I10 ESSENTIAL 10-27-2016 [facility] PRIMARY PHYSICIANS HYPERTENSIO GROUP N W86265 ENCOUNTER 10-27-2016 [facility] IN CLASSROOM TUTOR EXAM PHYSICIANS GENERAL RTN GROUP W/ABNORMAL FIND V57982 ENCOUNTER 10-27-2016 [facility] IN CLASSROOM TUTOR EXAM REFERNCE GENERAL RTN LABORATORIE W/O S ABNORMAL FIND Z1212 ENCOUNTER 10-27-2016 [facility] SCREENING PHYSICIANS MALIGNANT GROUP NEOPLASM RECTUM E785 HYPERLIPIDE 10-20-2016 [facility] JAIME PHYSICIANS UNSPECIFIED GROUP I119 HYPERTENSIV 10-20-2016 [facility] E HEART PHYSICIANS DISEASE GROUP WITHOUT HEART FAILURE I208 OTHER FORMS 10-20-2016 [facility] OF ANGINA PHYSICIANS PECTORIS GROUP I2510 ASHD NONDALTON 10-20-2016 [facility] CORONARY PHYSICIANS ARTERY W/O GROUP ANGINA PECTORIS Z8679 PERSONAL 10-20-2016 [facility] HISTORY OTH PHYSICIANS DISEASES GROUP CIRCULATORY SYSTEM I214 NON-ST 09-01-2016 [facility] ELEVATION PHYSICIANS MYOCARDIAL GROUP INFARCTION G42695 ASHD NONDALTON 09-01-2016 [facility] COR ART PHYSICIANS W/UNSTABLE GROUP ANGINA PECTORIS J441 CHRONIC 08-31-2016 [facility] OBSTRUCTIVE PHYSICIANS PULMONARY GROUP DZ W/EXACERBAT ION I252 OLD 08-30-2016 [facility] P R0602 SHORTNESS 08-30-2016 [place] OF BREATH PHYSICIANS, [employer] [facility] R61 GENERALIZED 08-30-2016 [facility] P IS R6884 JAW PAIN 08-30-2016 [place] PHYSICIANS, [facility] J020 STREPTOCOCC 08-23-2016 [facility] PHARYNGITIS CENTER J0190 ACUTE 06-09-2016 [facility] SINUSITIS UNSPECIFIED J209 ACUTE 06-09-2016 [facility] BRONCHITIS UNSPECIFIED G4734 IDIOPATH 04-04-2016 [facility] NONOBST INC ALVEOL HYPOVENTILA TN R634 ABNORMAL 04-04-2016 [facility] WEIGHT LOSS [facility] INC R911 SOLITARY 04-04-2016 [facility] PULMONARY [facility] NODULE INC R918 OTHER 04-04-2016 [place] NONSPECIFIC MEDICAL ABNORMAL IMAGING ASS FINDING OF LUNG FIELD G4730 SLEEP APNEA 02-12-2016 [facility]ACTITIONE UNSPECIFIED R GR J439 EMPHYSEMA 02-12-2016 [facility] UNSPECIFIED PRACTITIONE R GR Z23 ENCOUNTER 02-03-2016 [facility] IMMUNIZATIO [facility] DEPT N SINDHU J069 ACUTE UPPER 12-03-2015 AR[facility]OLD OLY RESPIRATORY INFECTION UNSPECIFIED 09615 OBSTRUCTIVE 12-24-2014 [facility] APNEA MEDICAL EQUIPME 496 CHRONIC 12-24-2014 [facility] NEC 67631 UNSPECIFIED 12-16-2014 [facility] CLOSED HOME FRACTURE OF MEDICAL CARPAL EQUIPME BONE 4412 THORACIC 08-17-2014 [facility] JOSS ANEURYSM WITHOUT MENTION OF RUPTURE 93856 SHORTNESS 08-17-2014 [facility] MEDICAL G 35370 OTHER 08-17-2014 [place] JOSS [place] [address] CHEST PAIN 08-17-2014 [facility] [place] UNSPECIFIED RADIOLOGY 4419 AORTIC 08-05-2014 ED[facility] DEMETRIO ANEUR UNSPEC SITE WITHOUT MENTION RUPTURE 5119 UNSPECIFIED 08-05-2014 [facility] [place] PLEURAL [facility] EFFUSION 47941 PAINFUL 08-05-2014 [facility] DEMETRIO RESPIRATION 4019 UNSPECIFIED 08-01-[address] [facility] [place] G N [address] DISSECTING 08-01-2014 [facility] AORTIC HEALTH ANEURYSM MEDICAL G THORACIC 38967 DISSECTING 08-01-2014 [facility] [place] [facility] RADIOLOGY ANEURYSM THORACOABDO ERIN 7140 RHEUMATOID 08-01-2014 [facility] ARTHRITIS [facility] MEDICAL G 58395 DISSECTING 07-28-2014 [facility] PSC UNSPECIFIED SITE 5180 PULMONARY 07-28-2014 [facility] [place] COLLAPSE RADIOLOGY V5882 ENCOUNTER 07-28-2014 [facility] [place] FITTING&ADJ RADIOLOGY NON-VASCULA R CATHETER NEC 4422 ANEURYSM OF 07-27-2014 [facility] ILIAC SERV ARTERY FOUNDATION 82190 ANEURYSM OF 07-27-2014 [facility] SPLENIC SERV ART[facility]OUNDATION 4928 OTHER 07-27-2014 [facility] EMPHYSEMA SERV FOUNDATION 5533 DIAPHRAGMAT 07-27-2014 [facility] CEDRICK W/O SERV MENTION FOUNDATION OBSTRUCTION /GANGREN 81879 SOLITARY 07-27-2014 [facility] PULMONARY SERV NODULE FOUNDATION 76464 OTHER 04-21-2014 FER[facility] SELECTIVE ALTHEA IMMUNOGLOBU GILBERTO DEFICIENCIE S 2859 UNSPECIFIED 04-21-2014 [facility] ANEMIA [facility] INC 4739 UNSPECIFIED 04-21-2014 [facility] SINUSITIS [facility] INC 4770 ALLERGIC 04-21-2014 FERMÍ[facility] RHINITIS ALTHEA DUE TO POLLEN 4778 ALLERGIC 04-21-2014 FERMÍ[facility] RHINITIS ALTHEA DUE TO OTHER ALLERGEN 05349 OBSTRUCTIVE 04-21-2014 FER[facility]ÍN CHRONIC ALTHEA BRONCHITIS WITH EXACERBATIO N 4919 UNSPECIFIED 04-21-2014 [facility] CHRONIC [facility] BRONCHITIS INC 40860 CHRONIC 04-21-2014 [facility]CTIVE [facility] ASTHMA INC UNSPECIFIED 16844 OTHER 04-21-2014 [facility] MALAISE AND [facility] FATIGUE INC V727 DIAGNOSTIC 04-21-2014 FER[facility] SKIN AND ALTHEA SENSITIZATI ON TESTS 4660 ACUTE 03-11-2014 [facility] OLY BRONCHITIS 4659 ACUTE URIS 02-13-2014 [facility] OLY OF UNSPECIFIED SITE 3384 CHRONIC 12-20-2013 ARNSARY OLY PAIN SYNDROME 462 ACUTE 12-20-2013 [facility] OLY PHARYNGITIS 4779 ALLERGIC 10-24-2013 FERMÍN RHINITIS ALTHEA CAUSE UNSPECIFIED 34649 CHRONIC 10-24-2013 FER[facility] OBSTRUCTIVE ALTHEA ASTHMA W/STATUS ASTHMATICUS 69420 ESOPHAGEAL 10-24-2013 FERMÍN REFLUX ALTHEA 9390 FOREIGN 06-10-2013 [facility] [place] [facility] ADULT [facility] PED URETHRA 5921 CALCULUS OF 05-21-2013 [facility] URETER CONSULTING SRV V7281 PRE-OPERATI 05-21-2013 [facility] ROSSI VE CARDIOVASCU CONSULTING LAR SRV EXAMINATION 591 HYDRONEPHRO 05-16-2013 [facility] [place] [facility] 7880 RENAL COLIC 05-05-2013 [facility] 2669 UNSPECIFIED 04-22-2013 [facility] VITAMIN B [facility] DEFICIENCY INC 2689 UNSPECIFIED 04-22-2013 [facility] VITAMIN D [facility] DEFICIENCY INC 55715 OBSTRUCTIVE 04-22-2013 [facility] CHRONIC [facility] BRONCHITIS INC WITHOUT EXACERBAT 4829 UNSPECIFIED 04-18-2013 FERMÍN BACTERIAL ALTHEA PNEUMONIA 4619 ACUTE 02-28-2013 MEÑ[facility] ALDRIDGE SINUSITIS, UNSPECIFIED 65082 VARIANTS 12-01-2012 MEÑO ALDRIDGE MIGRAINE NEC INTRACT MIGRAINE W/[place] [address] PAIN IN 06-06-2012 ARTHRITIS JOINT, AND MULTIPLE OSTEOPOROSI SITES S C 7242 LUMBAGO 06-06-2012 ARTHRITIS AND OSTEOPOROSI S C 7291 UNSPECIFIED 06-06-2012 ARTHRITIS MYALGIA AND AND OSTEOPOROSI MYOSITIS S C 96282 UNSPECIFIED 06-01-2012 [facility] OSTEOPOROSI S V5876 AFTERCARE 06-01-2012 [facility] NEC 5930 NEPHROPTOSI 05-29-2012 [facility] ANESTHESIA GROUP PS V7283 OTHER 05-28-2012 [place] SPECIFIED COMMUNITY PRE-OPERATI HOSPITA VE EXAMINATION 2112 BENIGN 05-24-2012 [facility] NEOPLASM OF [facility] DUODENUM INC JEJUNUM AND ILEUM 46703 ACUT GASTR 05-24-2012 PATHOLOGY & ULCER W/O CYTOLOGY MENTION LAB HEMORR PERF/OBST 97463 UNS 05-24-2012 [facility] GASTRITIS&G [facility] ASTRODUODIT INC IS W/O MENTION HEMORR 42460 DYSPHAGIA 05-24-2012 [facility] UNSPECIFIED [facility] INC 49430 UNSPECIFIED 05-16-2012 JEANNETTE SORENSEN MD ARTHROPATHY PSC OTHER SPECIFIED SITES 4780 HYPERTROPHY 05-14-2012 FER[facility]ÍN OF NASAL ALTHEA TURBINATES 86273 MIGRAINE 04-25-2012 [facility]OLOGY INTRACT W/O CENTER [place] STATUS MIGRAINOSUS 14362 CHRONIC 04-25-2012 [facility] MIGRAINE NEUROLOGY W/O CENTER [place] W/INTRACTAB LE W/O SM 7231 CERVICALGIA 04-25-2012 [facility] 486 PNEUMONIA, 01-11-2012 [facility] ORGANISM [facility] UNSPECIFIED INC 72957 CHRONIC 12-27-2011 JEANNETTE Tang FATIGUE FRANCHESCA AGEE SYNDROME PSC 7830 ANOREXIA 12-27-2011 JEANNETTE SORENSEN MD PSC V0481 NEED 12-21-2011 [facility] V[facility] &INOCULATIO N FLU 5920 CALCULUS OF 12-14-2011 [facility] KIDNEY [facility] INC 97415 HEMATURIA 12-14-2011 [place] UNSPECIFIED MEDICAL IMAGING ASS 37954 COR 11-29-2011 [facility]DR[facility] ATHEROSLERO UNSPEC TYPE VESSEL NONDALTON/LYNN T 02554 ABDOMINAL 11-17-2011 [facility] [place] PAIN, RADIOLOGY UNSPECIFIED SITE 5929 UNSPECIFIED 11-02-2011 MEÑO ALDRIDGE URINARY CALCULUS 40761 OTHER ACUTE 10-10-2011 [facility] 5990 URINARY 10-10-2011 [facility] TRACT [facility] INFECTION SERVICES SITE NOT SPECIFIED 61038 NAUSEA WITH 10-10-2011 [facility] VOMITING [facility]BULANCE SERVICE 86425 ABDOMINAL 10-10-2011 [facility] PAIN, EMERGENCY EPIGASTRIC SERVICES 8408 SPRAIN&STRA 04-11-2011 [facility] IN OTH SPEC [facility] P SHOULDER&UP PER ARM 8409 SPRAIN&STRA 04-11-2011 [facility] IN UNSPEC EMERGENCY SITE SERVICES SHOULDER&UP PER ARM 74127 GENERALIZED 04-05-2011 JEANNETTE Tang PAIN FRANCHESCA AGEE PSC 95954 CLOSED 01-12-2011 [facility] FRACTURE OF [facility]OS[facility] LOWER END INC OF RADIUS WITH ULNA V5489 OTHER 01-12-2011 [place] [facility] IM[facility]ING ASS 93486 CLOSED 12-22-2010 [facility] COLLES [facility] FRACTURE INC 94289 CONTUSION 11-19-2010 [facility] OF KNEE [facility] INC 9597 INJURY 11-19-2010 [place] OTHER&UNSPE MEDICAL CIFIED KNEE IMAGING ASS LEG ANKLE&FOOT 93343 PAIN IN 11-12-2010 [facility] JOINT, SHOULDER REGION 920 CONTUSION 11-12-2010 [place] [facility] MEDICAL SCALP AND IMAGING ASS NECK EXCEPT EYE 9248 CONTUSION 11-12-2010 [facility] OF MULTIPLE EMERGENCY SITES NEC SERVICES 2809 UNSPECIFIED 04-05-2010 [facility] IRON [facility] DEFICIENCY INC ANEMIA 1749 MALIGNANT 03-15-2010 [facility] NEOPLASM OF [facility] BREAST INC UNSPECIFIED SITE 7804 DIZZINESS 02-23-2010 JAZMINE C AND JOVANNY GIDDINESS 7802 SYNCOPE AND 02-17-2010 [facility] NEUROLOGY CENTER [place] V7611 SCREENING 02-12-2010 [facility] MAMMOGRAM [facility] FOR INC HIGH-RISK PATIENT V7612 OTHER 02-12-2010 [place] SCREENING MEDICAL MAMMOGRAM IMAGING ASS 46902 ANEMIA IN 02-01-2010 [facility] CHRONIC [facility] KIDNEY INC DISEASE 2113 BENIGN 01-27-2010 PATHOLOGY & NEOPLASM OF CYTOLOGY COLON LAB 2114 BENIGN 01-27-2010 PATHOLOGY & NEOPLASM OF CYTOLOGY RECTUM AND LAB ANAL CANAL V7651 SPECIAL 01-27-2010 [facility] SCREENING SERV FOR FOUNDATIO MALIGNANT NEOPLASMS COLON 16474 ATROPHIC 01-06-2010 PATHOLOGY & GASTRITIS CYTOLOGY WITHOUT LAB MENTION OF HEMORRHAGE 33512 OTHER SPEC 01-06-2010 [facility] MEDICAL GASTRITIS SERV WITHOUT FOUNDATIO MENTION HEMORRHAGE 5564 PSEUDOPOLYP 01-06-2010 PATHOLOGY & OSIS OF CYTOLOGY COLON LAB 2827 OTHER 12-30-2009 [facility] HEMOGLOBINO [facility] PATHIES INC 2768 HYPOPOTASSE 12-21-2009 [facility] JAIME [facility] INC 65253 ING CEDRICK 12-19-2008 SCHULSTAD, W/O MENTION LISA [...] ia de te s n re d AC 69 09 10 50 10 00 EA Ac YC 07 -1 -[address] ti LO 60 5- 3- 00 00 SI ve 14 20 20 50 DE R 60 17 17 17 20 1 01 PH 0 AR MG MA CY CA PS OF UL CY E NT HI AN A IN C BU 51 09 10 60 30 00 EA Ac TA 86 -1 -[address] ti LB 20 8- 3- 00 00 SI ve -A 54 20 20 49 DE CE 00 17 17 49 TA 5 84 PH KS AR N- MA CA CY FF OF 50 CY -3 NT 25 HI -4 AN 0 A IN C CA 59 09 10 10 5 00 EA Ac ED 74 -1 -[address] ti NI 60 5- 3- 00 00 SI ve SO 17 20 20 50 DE NE 50 17 17 17 6 02 PH 20 AR MA MG CY TA OF BL CY ET NT HI AN A IN C CY 51 09 10 60 30 00 EA Ac CA 99 -1 -[address] ti OH 10 9- 3- 00 SI ve EP 83 20 20 50 DE TA 80 17 17 21 DI 1 13 PH NE AR 4 MA CY MG OF TA CY BL NT ET HI AN A IN C CA 54 09 10 28 7 00 EA Ac AM 76 -0 -[address] ti OS 60 8- 6- 99 00 SI ve ON 76 20 20 50 DE E 30 17 17 00 1% 4 53 PH -1 AR % MA OI CY NT ME OF NT CY NT HI AN A IN C BI 00 08 09 30 30 00 EA Ac SO 18 -3 -[address] ti CA 50 - 9 00 SI ve OL 77 20 20 49 DE OL 43 17 17 14 0 32 PH FU AR MA MA RA CY TE OF 10 CY NT MG HI AN TA A B IN C HY 23 09 09 [address] 15 -0 -[address] ti OX 50 1- 9 00 SI ve YZ 10 20 20 50 DE IN 50 17 17 00 E 1 52 PH HC AR L MA 10 CY MG OF CY TA NT BL HI ET AN A IN C CL 00 08 09 30 30 00 EA Ac 53 -3 -[address] ti SI 64 1- 9- 00 SI ve C 06 20 20 49 DE CA 30 17 17 14 EN 1 34 PH AT AR AL MA CY TA BL OF ET CY NT HI AN A IN C AT 60 08 09 30 30 00 EA Ac OR 50 -3 -[address] ti VA 52 1- [address] 57 20 20 49 DE AT 80 17 17 14 IN 9 30 PH AR 10 MA CY MG OF TA CY BL NT ET HI AN A IN C TO 62 08 30 30 00 EA Ac PI 75 -3 -[address] ti RA 60 1- 9 00 SI ve MA 70 20 20 49 DE TE 78 17 17 49 6 83 PH 25 AR MA MG CY TA OF BL CY ET NT HI AN A IN C IS 13 08 30 30 00 EA Ac OS 66 -3 -[address] ti OR 80 1- 9 00 SI ve BI 10 20 20 49 DE DE 40 17 17 58 1 30 PH MN AR MA ER CY 30 OF CY MG NT HI TA AN BL A ET IN C VE 00 11 02 18 18 00 EA Ac NT 17 -2 -[address] ti OL 30 5- 2- 00 SI ve IN 68 20 20 49 DE 22 17 17 40 HF 0 91 PH A AR 90 MA CY MC G OF IN CY BUTCHER NT LE HI R AN A IN C IN 00 11 02 29 30 00 EA Ac CR 17 -2 -[address] ti US 30 5- 2- 00 SI ve E 87 20 20 47 DE EL 31 17 17 51 LI 0 17 PH PT AR A MA 62 CY .5 OF MC CY G NT IN HI H AN A IN C BU 51 08 60 30 00 EA Ac TA 86 -1 -[address] ti LB 20 9- 5- 00 SI ve -A 54 20 20 49 DE CE 00 17 17 49 TA 5 84 PH KS AR N- MA CA CY FF OF 50 CY -3 NT 25 HI -4 AN 0 A IN C VE 00 11 02 18 18 00 EA Ac NT 17 -0 -[address] ti OL 30 4- - 00 SI ve IN 68 20 20 49 DE 22 17 17 40 HF 0 91 PH A AR 90 MA CY MC G OF IN CY BUTCHER NT LE HI R AN A IN C BI 30 30 00 EA Ac SO 18 -0 -[address] ti CA 50 4- 1- 00 SI ve OL 77 20 20 49 DE OL 43 17 17 14 0 32 PH FU AR MA MA RA CY TE OF 10 CY NT MG HI AN TA A B IN C IN 00 07 30 30 00 EA Ac CR [...] ve C 06 20 20 49 DE CA 30 17 17 14 EN 1 34 [...] 17 17 49 TA 5 84 PH KS AR N- MA CA CY FF OF [...] CY NT HI AN A IN C IP 00 07 08 54 30 00 YO Ac RA 48 -1 -0 0. 00 UR ti T- 70 1- 4- 00 00 ve AL 20 20 20 0 03 PH BU 16 17 17 26 AR T 0 74 MA 0. CY 5- 3( LL 2. C 5) MG /3 ML HM 62 07 08 28 28 00 [...] LE HI R AN A IN C NI 43 06 07 25 5 00 EA Ac TR 59 -2 -[address] ti OG 80 3- 1- 00 00 SI ve LY 43 20 20 49 DE CE 61 17 17 23 RI 1 67 PH N AR 0. MA 4 CY MG OF TA CY BL NT ET HI AN SL A IN C IN 00 08 31 30 30 00 EA Ac CR 17 -2 -[address] ti US 30 3- 1- 00 00 SI ve E 87 20 20 47 DE EL 31 17 17 51 LI 0 17 PH PT AR A MA 62 CY .5 OF MC CY G NT IN HI H AN A IN C AT 60 06 07 30 30 00 EA Ac OR 50 -1 -[address] ti VA 52 5- 4- [address] 57 20 20 49 DE AT 80 17 17 14 IN 9 30 PH AR 10 MA CY MG OF TA CY BL NT ET HI AN A IN C BI 00 08 31 30 30 00 EA Ac SO 18 -1 -[address] ti CA 50 5- 4- 00 00 SI ve OL 77 20 20 49 DE OL 43 17 17 14 0 32 PH FU AR MA MA RA CY TE OF 10 CY NT MG HI AN TA A B IN C CL 00 07 30 30 00 EA Ac 53 -1 -[address] ti SI 64 5- 4- 00 00 SI ve C 06 20 20 49 DE CA 30 17 17 14 EN 1 34 [...] LE HI R AN A IN C CA 59 06 06 27 7 00 EA Ac ED 74 -0 -[address] ti NI 60 7- 0- 00 00 SI ve SO 17 20 20 49 DE NE 31 17 17 03 0 71 PH 10 AR MA MG CY TA OF BL CY ET NT HI AN A IN C IN [...] IN HI H AN A IN C CE 00 06 20 10 00 EA Ac FD 09 -3 -[address] ti IN 33 0- 3- 00 00 SI ve IR 16 20 20 48 DE 00 17 17 93 30 6 92 PH 0 AR MG MA CY CA PS OF UL CY E NT HI AN A IN C BU 00 05 06 60 30 00 EA Ac CA 59 -2 -[address] ti OP 13 5- 3- 00 00 SI ve IO 54 20 20 48 DE N 36 17 17 58 HC 0 99 PH L AR SR MA CY 15 0 OF MG CY NT TA HI BL AN ET A IN C BU 00 05 60 30 00 EA Ac CA 59 -0 -[address] ti OP 13 2- 6- 00 00 SI ve IO 54 20 20 48 DE N 36 17 17 58 HC 0 99 PH L AR SR MA CY 15 0 OF MG CY NT TA HI BL AN ET A IN C CL 00 07 29 30 30 00 EA Ac 53 -0 -[address] ti SI 64 1- 6- 00 00 SI ve C 06 20 20 48 DE CA 30 17 17 57 EN 1 01 [...] AN A IN C IN 00 05 30 30 00 EA Ac CR 17 -0 -[address] ti US 30 1- 6- 00 00 SI ve E 87 20 20 47 DE EL 31 17 17 51 LI 0 17 PH PT AR A MA 62 CY .5 OF MC CY G NT IN HI H AN A IN C LO 16 05 05 30 30 00 EA Ac RA 71 -0 -[address] ti TA 40 1- 6- 00 00 SI ve DI 48 20 20 48 DE NE 20 17 17 57 3 14 PH 10 AR MA MG CY TA OF BL CY ET NT HI AN A IN C FL 60 05 05 16 30 00 EA Ac UT 43 -0 -[address] ti IC 20 1- 6- 00 00 SI ve 26 20 20 48 DE ON 41 17 17 57 E 5 15 PH CA AR OP MA CY 50 OF MC CY G NT SP HI RA AN Y A IN C IN 00 04 04 [...] .[address] ti OL 30 9- - 00 SI ve IN 68 20 20 48 DE 22 17 17 16 HF 0 05 PH A AR 90 MA CY MC G OF IN CY BUTCHER NT LE HI R AN A IN C FL 60 03 04 16 30 00 EA Ac UT 43 -2 -[address] ti IC 20 6- 1- 00 00 SI ve 26 20 20 45 DE ON 41 17 17 76 E 5 28 PH CA AR OP MA CY 50 OF MC CY G NT SP HI RA AN Y A IN C FE 64 03 04 60 30 00 EA Ac RR 37 -2 -[address] ti OU 60 7- 1- 00 00 SI ve S 80 20 20 48 DE SMITH 91 17 17 12 LF 0 07 PH AT AR E MA 32 CY 5 MG OF CY TA NT BL HI ET AN A IN C LO 16 03 04 30 30 00 EA Ac RA 71 -2 -[address] ti TA 40 6- 1- 00 00 SI ve DI 48 20 20 45 DE NE 20 17 17 36 3 07 PH 10 AR MA MG CY TA OF BL CY ET NT HI AN A IN C BE 65 03 04 30 10 00 EA Ac NZ 16 -2 -[address] ti ON 20 6- 1- 00 00 SI ve AT 53 20 [...] ve C 06 20 20 47 DE CA 30 17 17 69 EN 1 99 [...] HI BL AN ET A IN C SMITH 53 03 04 [...] .[address] ti ON 20 6- 4- 00 00 SI ve AT 53 20 [...] HI H AN A IN C BU 00 03 03 60 30 00 EA Ac CA 59 -0 -[address] ti OP 13 6- 1- 00 00 SI ve IO 54 20 20 46 DE N 36 17 17 58 HC 0 14 PH L AR SR MA CY 15 0 OF MG CY NT TA HI BL AN ET A IN C CL 00 02 03 30 30 00 EA Ac 53 -2 -[address] ti SI 64 1- 7- 00 00 SI ve C 06 20 20 47 DE CA 30 17 17 69 EN 1 99 PH AT AR AL MA CY TA BL OF ET CY NT HI AN A IN C IN 03 30 30 00 EA Ac CR 17 -0 -[address] ti US 30 6- 3- 00 00 SI ve E 87 20 20 47 DE EL 31 17 17 51 LI 0 17 PH PT AR A MA 62 CY .5 OF MC CY G NT IN HI H AN A IN C BU 00 02 60 30 00 EA Ac CA 59 -3 -[address] ti OP 13 0- 4- 00 00 SI ve IO 54 20 20 46 DE N 36 17 17 58 HC 0 14 PH L AR SR MA CY 15 0 OF MG CY NT TA HI BL AN ET A IN C SE 00 02 60 30 00 EA Ac RE 17 -2 -[address] ti VE 30 1- 7- 00 SI ve NT 52 20 20 46 DE 10 17 17 87 DI 0 92 PH SK AR US MA CY 50 OF MC CY G NT HI AN A IN C DI 00 01 02 12 30 00 EA Ac AZ 17 -2 -[address] ti EP 23 1- 7- 00 SI ve AM 92 20 [...] R AN A IN C LO 16 01 02 30 30 00 EA Ac RA 71 -2 -[address] ti TA 40 1- 7- 00 00 SI ve DI 48 20 20 45 DE NE 20 17 17 36 3 07 PH 10 AR MA MG CY TA OF BL CY ET NT HI AN A IN C GA 67 01 02 90 30 00 EA Ac BA 87 -2 -[address] ti PE 70 3- 7- 00 00 SI ve NT 22 20 20 47 DE IN 40 17 17 33 5 63 PH 40 AR 0 MA MG CY CA OF PS CY UL NT E HI AN A IN C CL 00 01 02 30 30 00 EA Ac 53 -2 -[address] ti SI 64 1- 7- 00 00 SI ve C 06 20 20 45 DE CA 30 17 17 36 EN 1 05 PH AT AR AL MA CY TA BL OF ET CY NT HI AN A IN C BU 00 12 01 60 30 00 EA Ac CA 59 -2 -[address] ti OP 13 8- 0- 00 00 SI ve IO 54 20 20 46 DE N 36 16 17 58 HC 0 14 PH L AR SR MA CY 15 0 OF MG CY NT TA HI BL AN ET A IN C FL 60 12 01 16 30 00 EA Ac UT 43 -1 -[address] ti IC 20 3- 9- 00 00 SI ve 26 20 20 45 DE ON 41 16 17 76 E 5 28 PH CA AR OP MA CY 50 OF MC [...] G NT HI AN A IN C LO 16 12 01 30 30 00 EA Ac RA 71 -1 -[address] ti TA 40 3- 9- 00 00 SI ve DI 48 20 20 45 DE NE 20 16 17 36 3 07 PH 10 AR MA MG CY TA OF BL CY ET NT HI AN A IN C CL 00 12 01 30 30 00 EA Ac 53 -1 -[address] ti SI 64 3- 9- 00 00 SI ve C 06 20 20 45 DE CA 30 16 17 36 EN 1 05 PH AT AR AL MA CY TA BL OF ET CY NT HI AN A IN C KE [...] Ml ti ve Sy ri ng e CA 00 02 0 No OM 64 -0 [...] 11 11 RI TA 8 PH CH KS AR AR N- MA D CA CY [...] CY CA NT P HI AN A PO 00 09 09 [...] HI ET AN A SA 00 10 09 6 [...] NT ET HI AN A BU 00 06 09 3 30 5 EA 23 AR Ac TA 60 -2 -[address] 09 NO ti LB 32 7- 2- 00 SI 64 LD ve -A 54 20 20 DE CE 42 11 11 RI TA 8 PH CH KS AR AR N- MA D CA CY W FF OF 50 -3 CY 25 NT -4 HI 0 AN A NA 53 09 09 5 60 5 EA 23 AR Ac CA 74 -0 -[address] 93 NO [...] 0 10 5 EA 23 SO Ac CA 74 -1 -[address] 72 KA [...] 11 11 RI TA 8 PH CH KS AR AR N- MA D CA CY [...] ET HI AN A PO 00 03 06 [...] TA NT BL HI ET AN A CH 00 12 06 1 56 28 EA 20 MA Ac AN 06 -2 -[address] 49 CR ti TI 90 1- 3- 00 SI 09 IN ve X 46 20 20 DE IC 1 95 10 11 I MG 6 PH VA AR LE TA MA NT BL CY IN ET A OF CY NT HI AN A RA [...] BL ET CY NT HI AN A SA 00 10 05 6 [...] 11 11 SHRUTHI TA 8 PH E KS AR A N- MA CA CY FF [...] 10 10 SHRUTHI TA 8 PH E KS AR A N- MA CA CY FF [...] A OF CY NT HI AN A NO [...] 10 10 SHRUTHI TA 8 PH E KS AR A N- MA CA CY FF [...] -1 -[address] 58 SC ti CA 90 8- 8- 0 SI 45 H [...] 10 10 SHRUTHI TA 8 PH E KS AR A N- MA CA CY FF [...] 10 10 SHRUTHI TA 8 PH E KS AR A N- MA CA CY FF OF 50 -3 CY 25 NT -4 HI 0 AN A BU 00 07 07 0 36 6 EA 18 NI Ac TA 60 -1 -[address] 32 CH ti LB 32 3- 3- 00 SI 75 OL ve -A 54 20 20 DE S CE 42 10 10 SHRUTHI TA 8 PH E KS AR A N- MA CA CY FF OF 50 -3 CY 25 NT -4 HI 0 AN A BU 00 03 03 0 36 6 EA 16 NI Ac TA 59 -0 -[address] 59 CH ti LB 13 2- 2- 00 SI 46 OL ve -A 36 20 20 DE S CE 90 10 10 SHRUTHI TA 5 PH E KS AR A N- MA CA CY FF [...] 10 10 SHRUTHI TA 5 PH E KS AR A N- MA CA CY FF OF 50 CY -3 NT 25 HI -4 AN 0 A BU 00 01 01 00 36 7 EA 15 NI Ac TA 59 -0 -[address] 90 CH ti LB 13 9- 8- 00 SI 22 OL ve -A 36 20 20 DE S CE 90 10 10 SHRUTHI TA 5 PH E KS AR A N- MA CA CY FF OF 50 CY -3 NT 25 HI -4 AN 0 A BU 00 12 12 00 36 7 EA 15 NI Ac TA 59 -1 -[address] 57 CH ti LB 13 4- 1- 00 SI 60 OL ve -A 36 20 20 DE S CE 90 09 09 SHRUTHI TA 5 PH E KS AR A N- MA CA CY FF [...] 09 09 SHRUTHI TA 1 PH E KS AR A N- MA CA CY FF [...] 09 09 SHRUTHI TA 1 PH E KS AR A N- MA CA CY FF [...] predict 21:[address] C-G-vRa te GFR/BSA 65 59- complet .pred 014 ML/MIN ed [...] with AUTO DIFF (05-05-2013 21:00) WBC # 05-05- 8.9 4.8-10. complet Bld 014 K/MM3 8 ed Auto 21:00 RBC # 05-05- 5.11 4.2-5.4 complet Bld 014 M/mm3 ed [...] Procedures Procedure DOS Code Location Performer Comment INTERROGA 94399 [facility] RICHARD TION 7 PHYSICIAN EVALUATIO S GROUP N IN PERSON ILR SYSTEM URINE 95070 [facility] TEST INC INC VISUAL COLOR CMPRSN METHS CATH PLMT 92247 L[facility] SCH[facility] L HRT & 7 [facility] ARTS INC INC W/NJX & ANGIO IMG S&I BASIC 29144 [facility] METABOLIC 7 [facility] PANEL INC INC CALCIUM TOTAL MOD SED 71157 [facility] SCH[facility] SAME 7 [facility] PHYS/QHP INC INC INITIAL 15 MINS <5 YRS BLOOD 37477 [facility] COUNT 7 [facility] COMPLETE INC INC AUTO&AUTO DIFRNTL WBC SPECIAL 16301 [facility] STAIN 7 DERMATOLO GROUP 1 GY MICROORGA NISMS I&[place] [address] [facility] SURG 7 DERMATOLO PATHOLOGY GY GROSS&MANJIT ROSCOPIC EXAM DIAGNOSTI 80755 [facility] C 7 [facility] MAMMOGRAP INC INC HY COMPUTER- AIDED DETCJ BI US BREAST 99922 LANDEN SCHUSTER UNI REAL 7 [facility] TIME INC INC WITH IMAGE COMPLETE US BREAST 31106 [place] UNI REAL 7 MEDICAL TIME IMAGING WITH ASS IMAGE LIMITED DIAGNOSTI G0204 [place] C 7 MEDICAL MAMMOGRAP IMAGING HY INCL ASS CAD WHEN PERF; BILAT FRAMES V2020 HABVITA HABASH PURCHASES 7 BIFOCL V2207 HABASH HABASH +/-4.25-+ 7 /-7.00D SPHER 0.12-2.00 D CYL-EA FITTING 02622 JOSE HABVITA SPECTACLE 7 S XCPT APHAKIA BIFOCAL BIFOCL V2208 HABASH HABASH +/-4.25-+ 7 /-7.00D SPHER 2.12-4.00 D CYL-EA O2 CONC 1 E1390 [facility] 7 HOME HOME 85%/>02 MEDICAL MEDICAL CONC AT EQUIPME EQUIPME [facility] FLW RATE IMPLANTAT 46600 [facility] RICHARD ION 7 PHYSICIAN PT-ACTIVA S GROUP SREE CARDIAC EVENT RECORDER ENDOMETRI 93814 [facility] SINDHUPEL AL BX 7 PHYSICIAN W/WO S GROUP ENDOCERVI X BX W/O DILAT SPX EVENT C1764 [facility] RECORDER 7 [facility] CARDIAC INC INC HOSPITAL G0463 [facility] SCH[facility]ER OUTPATIEN 7 [facility] T CLIN INC INC VISIT ASSESS & MGMT PT CT THORAX [address] [facility] 7 MEDICAL W/CONTRAS IMAGING T ASS MATERIAL FINAL RPT G[address]/MRI 7 MEDICAL CHEST/NCK IMAGING /U/S NO ASS THR NOD<1.[address] [place] [address] [facility] ABDOMEN 7 MEDICAL W/CONTRAS IMAGING T ASS MATERIAL FINAL G9638 [facility] REPORTS 7 MEDICAL W/O DOC IMAGING 1/[place] [address] [facility]ER ANGIOGRAP 7 [facility] HY CHEST INC INC W/CONTRAS T/NONCONT RAST FINAL G9551 [facility] REPR ABD 7 MEDICAL IMAG STS IMAGING W/O ASS INCIDNT FND LES NTD: [place] [address] L[facility] MCKEONON ANGIOGRAP 7 [facility] HY INC INC ABDOMEN W/[place] [address] LANDEN SCHUSTER RETROPERI 7 [facility] TONEAL INC [place] REAL TIME W/[place] [address] [facility] RETROPERI 7 MEDICAL TONEAL IMAGING REAL TIME ASS W/IMAGE LIMITED INFO 7025F [facility] SYSTEM 7 MEDICAL ANALYSIS IMAGING ABNORMAL ASS INTERPRAT E SCREENING G0202 [facility] [facility] 7 MEDICAL MAMMOGRAP IMAGING HY [place] [address] [place] TRANSVAGI 7 MEDICAL NAL IMAGING ASS SCREENING 29428 [facility] 7 [facility] MAMMOGRAP INC INC HY BI 2-VIEW BREAST INC CAD MAMMO 3340F [facility] ASSESSMEN 7 MEDICAL T CAT IMAGING IN[place] [address] L[facility]EN SCHUSTER UREA 7 [facility] NITROGEN INC INC QUANTITAT JADON COLLECTIO 65791 LANDEN SCHUST[facility] N VENOUS 7 [facility] BLOOD INC INC VENIPUNCT URE CREATININ 21429 LANDEN SCHUSTER E BLOOD 7 [facility] INC INC CULTURE 42396 [facility] HARPEL CHLAMYDIA 7 PHYSICIAN ANY S GROUP SOURCE CYTP C/V 26818 BIO BIO AUTO THIN 7 REFERNCE REFERNCE LYR LABORATOR LABORATOR PREPJ SCR IES IES MNL RESCR PHYS IADNA 38778 [facility] HARPEL NEISSERIA 7 PHYSICIAN S GROUP GONORRHOE AE DIRECT PROBE TQ IADNA 77431 BIO BIO NEISSERIA 7 REFERNCE 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 GONORRHOE IES IES AE AMPLIFIED PROBE TQ IADNA NOS 97293 BIO BIO 7 REFERNCE REFERNCE AMPLIFIED LABORATOR LABORATOR PROBE TQ IES IES EACH ORGANISM BLOOD 94573 [facility] OCCULT 7 PHYSICIAN PHYSICIAN PEROXIDAS S GROUP S GROUP E ACTV QUAL FECES 1-3 SPEC IADNA 14885 BIO BIO TRICHOMON 7 REFERNCE 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 VAGINALIS IES IES AMPLIFIED PROBE TECH IADNA 06762 BIO BIO CHLAMYDIA 7 REFERNCE 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 TRACHOMAT IES IES IS AMPLIFIED PROBE TQ ECG 06121 [facility] RICHARD ROUTINE 7 PHYSICIAN ECG S GROUP W/LEAST 12 LDS I&R ONLY ECG 20164 [facility] SCH[facility]ER ROUTINE 7 [facility] ECG INC INC W/LEAST 12 LDS TRCG ONLY W/O I&R O2 CONC 1 E1390 [facility] [place] 7 HOME HOME 85%/>02 MEDICAL MEDICAL CONC AT EQUIPME EQUIPLA PRS FLW RATE DRUG TEST 12768 LANDEN SCHUSTER PRSMV 7 [facility] QUAL DIR INC INC OPTICAL OBS PER DAY NEBULIZER E0570 [facility] NEW WITH 7 HOME HOME COMPRESSO MEDICAL MEDICAL R EQUIPME EQUIPLA ADMN SET A7005 YOUR YOUR W/SM VOL 7 PHARMACY PHARMACY [facility] NEBULIZR NON-DISPB L ECG 01671 LANDEN SCHUSTER ROUTINE 7 [facility] ECG INC INC W/LEAST 12 LDS TRCG ONLY W/O I&R O2 CONC 1 E1390 [facility] 7 HOME HOME 85%/>02 MEDICAL MEDICAL CONC AT [facility] PRSC FLW RATE BASIC 34166 LANDEN SCHUSTER METABOLIC 7 [facility] PANEL INC INC CALCIUM TOTAL CATHETER C1725 LANDEN SCHUSTER TRANSLUMI 7 [facility] NAL INC INC ANGIOPLAS TY NON-LASER GUIDE C1769 LANDEN SCHUSTER WIRE 7 [facility] INC INC STENT C1876 LANDEN SCHUSTER NON-COATE 7 [facility] D/NON-COV INC INC ERED W/DELIVER Y SYSTEM COAGULATI 88152 LANDEN SCHUSTER ON TIME 7 [facility] [place] PRQ [address]390 LANDEN SCHUSTER TRLUML 7 [facility] CORONARY INC INC STENT W/ANGIO ONE ART/BRNCH COLLECTIO 28290 LANDEN SCHUSETR N VENOUS 7 [facility]OSP BLOOD INC INC VENIPUNCT [facility] 63631 [facility] 7 PHYSICIAN DAY S GROUP MANAGEMEN T 30 MIN/< HOSPITAL G0378 LANDEN SCHUSTER OBSERVATI 7 [facility] ON INC INC SERVICE PER HOUR BLOOD 60105 LANDEN SCHUSTER COUNT 7 [facility]OS[facility] COMPLETE INC INC AUTO&AUTO DIFRNTL WBC CLOSURE C1760 LANDEN SCHUSTER DEVICE 7 [facility]OS[facility] VASCULAR INC INC INTRDUCR/ C1894 LANDEN SCHUSTER SHEATH 7 [facility]OS[facility] NOT GUID INC INC INTRACARD EP NON-LASR LIPID 95735 LANDEN SCHUSTER PANEL 7 [facility] INC INC INITIAL 57119 [facility] 7 PHYSICIAN CARE/DAY S GROUP 50 MINUTES HOSPITAL G0378 LANDEN SCHUSTER OBSERVATI 7 [facility] ON INC INC SERVICE PER HOUR GUIDE C1769 LANDEN SCHUSTER WIRE 7 [facility] INC INC CATHETER C1725 LANDEN SCHUSTER TRANSLUMI 7 [facility]OS[facility] NAL INC INC ANGIOPLAS TY NON-LASER CATH PLMT 46878 LANDEN SCHUSTER L HRT & 7 [facility] HOSP ARTS INC INC W/NJX & ANGIO IMG S&I URINE 78533 [facility] SCHUSTER 7 [facility] TEST INC INC VISUAL COLOR CMPRSN METHS RADIOLOGI 50617 LANDEN SCHUSTER C 7 [facility] HOSP EXAMINATI INC INC ON CHEST SING[place]IEW FRONTAL AMB A0427 [facility] SERVICE 7 AMBULANCE AMBULANCE ALS SERVICE SERVICE EMERGENCY TRANSPORT LEVEL [address] [facility] CARE 7 PHYSICIAN ILL/INJUR S, PLLC ED PATIENT INIT 30-74 MIN COMPREHEN 61389 LANDEN SCHUSTER SIVE 7 [facility] METABOLIC INC INC PANEL THERAPEUT 58035 LANDEN SCHUSTER IC 7 [facility] HOSP INJECTION INC INC IV PUSH EACH NEW DRUG ECG 99704 LANDEN SCHUSTER ROUTINE 7 [facility] ECG INC INC W/LEAST 12 LDS TRCG ONLY W/O I&R GROUND A0425 [facility] MILEAGE 7 AMBULANCE AMBULANCE PER SERVICE SERVICE STATUTE MILE BLOOD 11546 LANDEN SCHUSTER COUNT 7 [facility] COMPLETE INC INC AUTO&[place] [address] LANDEN SCHUSTER TROPONIN 7 [facility] QUANTITAT INC INC JADON ECG 34177 [facility] ROUT[facility] 7 PHYSICIAN ECG S, PLLC W/LEAST 12 LDS [place] [address] LANDEN SCHUSTER INFUSION 7 [facility] HOSP THERAPY/P INC INC ROPHYLAXI S /DX 1ST TO 1 HR PRESSURIZ 26727 LANDEN SCHUSTER ED/NONPRE 7 [facility] SSURIZED INC INC INHALATIO N TREATMENT IAADIADOO 62069 [facility] 7 [facility] CCUS CENTER GROUP A O2 CONC 1 E1390 [facility] 7 HOME HOME 85%/>02 MEDICAL MEDICAL CONC AT EQUIPME EQUIPME PRS FLW RATE O2 CONC 1 E1390 [facility] 7 HOME HOME 85%/>02 MEDICAL MEDICAL CONC AT EQUIPME EQUIPME [facility] FLW RATE O2 CONC 1 E1390 [facility] 7 HOME HOME 85%/>02 MEDICAL MEDICAL CONC AT EQUIPME EQUIPME [facility] FLW RATE O2 CONC 1 E1390 [facility] [place] 7 HOME HOME 85%/>02 MEDICAL MEDICAL CONC AT EQUIPME EQUIPME [facility] FLW RATE CT THORAX 96267 [facility] W/O 7 MEDICAL CONTRAST IMAGING MATERIAL ASS FINAL RPT G[address]/MRI 7 MEDICAL CHEST/NCK IMAGING /U/S NO ASS THR NOD<1.0 CM FINAL G9638 [facility] REPORTS 7 MEDICAL W/O DOC IMAGING 1/MORE ASS DOSE REDUCTION TECH O2 CONC 1 E1390 [facility] [place] 6 HOME HOME 85%/>02 MEDICAL MEDICAL CONC AT EQUIPME EQUIPME [facility] FLW RATE O2 CONC 1 E1390 [facility] [place] 6 HOME HOME 85%/>02 MEDICAL MEDICAL CONC AT EQUIPME EQUIPME [facility] FLW RATE PLETHYSMO 77414 SAMIA JANE GRAPHY 6 MEDICAL LUNG SERV VOLUMES FOUNDATIO W/WO N AIRWAY RESIST PULMONARY 00553 [place] STRESS 6 [place]ICAL [place] [address] [place] DIFFUSING 6 MEDICAL CAPACITY SERV FOUNDATIO N SPMTRY 53842 [place] W/VC 6 MEDICAL EXPIRATOR SERV Y ANA MARIA FOUNDATIO W/WO MXML N VOL VNTJ IIV4 VACC 94597 [facility] SPLIT 6 DISTRICT DISTRICT VIRUS 0.5 HLTH DEPT HLTH DEPT ML [place] [address] LANDEN SCHUSTER THYROID 6 [facility] STIMULATI INC INC NG HORMONE TSH ANTINUCLE 45829 LANDEN SCHUSTER AR 6 [facility] ANTIBODIE INC INC S CARLOS BLOOD 30144 LANDEN SCHUSTER COUNT 6 [facility] COMPLETE INC INC AUTO&AUTO DIFRNTL WBC ALPHA-1-A 36896 LANDEN SCHUSTER NTITRYPSI 6 [facility] N INC INC PHENOTYPE COMPREHEN 53108 LANDEN SCHUSTER SIVE 6 [facility] METABOLIC INC INC PANEL ANTIBODY 52123 LANDEN SCHUSTER IDENTIFIC 6 [facility] ATION INC INC LEUKOCYTE ANTIBODIE S COLLECTIO 51019 LANDEN SCHUSTER N VENOUS 6 [facility] BLOOD INC INC VENIPUNCT URE O2 CONC 1 E1390 SHAQ [...] YOUR YOUR W/SM VOL 6 PHARMACY PHARMACY [facility] NEBULIZR NON-DISPB L O2 CONC 1 [...] EQUIPME EQUIPME FLWMTR HUMIDFR&M ASK TUBING A7037 SHAQANTHONY NEW USED WITH 5 HOME HOME POSITIVE MEDICAL MEDICAL AIRWAY EQUIPME EQUIPME PRESSURE DEVICE ADMN SET A7005 YOUR YOUR W/SM VOL 5 PHARMACY PHARMACY [facility] NEBULIZR NON-DISPB L CUSHN A7032 SHAQ [facility] NASAL 5 HOME HOME MASK MEDICAL MEDICAL INTERFACE EQUIPME EQUIPME REPLACEME NT ONLY EACH FILTER A7038 SHAQ NEW DISPBL 5 HOME HOME USED MEDICAL MEDICAL W/POS EQUIPME EQUIPME ARWAY PRESSURE DEVICE O2 CONC 1 E1390 SHAQ [...] RENT; EQUIPME EQUIPME FLWMTR HUMIDFR&M ASK ECG 82245 [facility] ROUTINE [facility] ECG MEDICAL W/LEAST G 12 LDS I&R ONLY RADIOLOGI 43296 MONTERROSO MONTERROSO C 5 JOSS JOSS EXAMINATI ON CHEST SINGLE VIEW FRONTAL O2 CONC 1 E1390 [facility] [place] 5 HOME HOME 85%/>02 MEDICAL MEDICAL CONC AT EQUIPME EQUIPME PRSC FLW RATE RADIOLOGI 64817 [facility] [place] KOSTELIC C 5 RADIOLOGY [place] EXAMINATI ON CHEST SINGLE VIEW FRONTAL ECG 37475 [facility] DEMETRIO ROUTINE 5 ECG W/LEAST 12 LDS I&[place] [address] [facility] [place]OST[place] ANGIOGRAP 5 RADIOLOGY [place] HY CHEST W/CONTRAS T/[place] [address] [facility] [place] ANGIOGRAP 5 RADIOLOGY GUTIERREZ HY CHEST W/CONTRAS T/NONCONT RAST INITIAL 88811 [facility]/DAY MEDICAL [address] ANGIO 34795 [facility] [place] ABD&PLVIS 5 RADIOLOGY GUTIERREZ CNTRST MTRL W/WO CNTRST IMG RADIOLOGI 96912 [facility] [place] SIMEON C 5 RADIOLOGY ISHMAEL EXAMINATI ON CHEST SINGLE VIEW FRONTAL DOPPLER [address] ECHOCARD 5 A PULSE ASSOCIATE WAVE S PSC W/SPECTRA L DISPLAY RADIOLOGI 13164 [facility] [place] C 5 RADIOLOGY ISHMAEL EXAMINATI ON CHEST SING[place]IEW FRONTAL ECHO [address] TRANSESOP 5 A HAG R-T ASSOCIATE 2D W/PRB S PSC IMG ACQUISJ I&R DOP [address] ECHOCARD 5 A COLOR ASSOCIATE FLOW S PSC VELOCITY MAPPING ANES HRT [address] PERICRD 5 A SAC&GRT ASSOCIATE VSLS S PSC W/MARINE SERVICE OPERATOR OXTJ >1MO PO SPCL STN 70475 KAHLIL PICHARDO 2 I&R 5 [facility] EXCPT CLINIC MICROORG/ PSC ENZYME/[place] [address] KAHLIL PICHARDO SURG 5 [facility] PATHOLOGY CLINIC PSC GROSS&MANJIT ROSCOPIC EXAM INITIAL 71644 EM IV EM IV INPATIENT 5 OLY OLY CONSULT NEW/ESTAB PT 55 MIN ASCENDING 36503 EM IV EM IV AORTA 5 OLY OLY GRF W/CARD BYP & [place] [address] [place] AYOOB AND ANGIOGRAP 5 MEDICAL HY CHEST SERV W/CONTRAS FOUNDATIO T/NONCONT N RAST CT ANGIO 41399 [place] AYOO[place] AND ABD&PLVIS 5 MEDICAL CNTRST SERV MTRL W/WO FOUNDATIO CNTRST N IMG O2 CONC 1 E1390 [facility] [place] 5 HOME HOME 85%/>02 MEDICAL MEDICAL CONC AT EQUIPME EQUIPME PRSC FLW RATE O2 CONC 1 E1390 [facility] [place] 5 HOME HOME 85%/>02 MEDICAL MEDICAL CONC AT EQUIPME EQUIPME PRSC FLW RATE O2 CONC 1 E1390 [facility] [place] 5 HOME HOME 85%/>02 MEDICAL MEDICAL CONC AT EQUIPME EQUIPME PRSC FLW RATE NITRIC 52992 FERMÍN FERMÍN OXIDE 5 ALTHEA [place] GAS DETERMINA TION GAMMAGLOB 48311 LANDEN SCHUSTER ULIN 5 [facility] IMMUNOGLO [place] [address] LANDEN SCHUSTER THYROID 5 MEM [facility] STIMULATI [place] [address] LANDEN SCHUSTER FREE 5 [facility] THYROXINE INC INC CUL BACT 41312 LANDEN SCHUSTER XCPT 5 [facility] URINE INC INC BLOOD/STO OL AEROBIC ISOL 25 09351 LANDEN SCHUSTER HYDROXY 5 [facility] INCLUDES INC INC FRACTIONS IF PERFORMED HEMAGGLUT 34850 LANDEN SCHUSTER INATION 5 [facility] INHIBITIO INC INC N TEST ERICKA CULTURE 51808 LANDEN SCHUSTER FNGI 5 [facility] MOLD/YEAS INC INC T PRSMPTV OTH XCPT BLOOD HEADGEAR A7035 [facility] NEW USED 5 HOME HOME W/POSITIV MEDICAL MEDICAL E AIRWAY EQUIPME EQUIPME PRESSURE DEVICE COLLECTIO 57347 LANDEN SCHUSTER N VENOUS 5 [facility] BLOOD INC INC VENIPUNCT URE CYANOCOBA 33268 LANDEN SCHUSTER JOSE RAFAEL 5 [facility] VITAMIN INC [place] B-[address] [place] [address] LANDEN SCHUSTER GAMMAGLOB 5 [facility] ULIN IGE INC INC C-REACTIV 32201 LANDEN SCHUSTER E PROTEIN 5 [facility] INC INC ANTIBODY 20354 LANDEN SCHUSTER DIPHTHERI 5 [facility] A INC INC ANTIBODY 47112 LANDEN SCHUSTER TETANUS 5 [facility] INC INC ADMN SET A7005 YOUR YOUR W/SM VOL 5 [facility] NE[facility] NON-DISPB L FULL FACE A7030 SHAQ NEW MASK 5 HOME HOME USED MEDICAL MEDICAL W/POS EQUIPME EQUIPME ARWAY PRESS DEVICE EA COMPREHEN 43658 LANDEN SCHUSTER SIVE 5 [facility] METABOLIC INC INC PANEL SEDIMENTA 89725 LANDEN SCHUSTER TION RATE 5 [facility] RBC INC INC NON-AUTOM ATED PERCUTANE 70549 FERMÍN FERMÍN OUS TESTS 5 ALTHEA ALTHEA W/ALLERGE PHYLICIA EXTRACTS PRESSURIZ 36821 FERMÍN FERMÍN ED/NONPRE 5 ALTHEA [place] SSURIZED INHALATIO N TREATMENT BRNCDILAT 65907 FERMÍN FERMÍN RSPSE 5 ALTHEA ALTHEA SPMTRY PRE&POST- BRNCDILAT ADMN BLOOD 69437 LANDEN SCHUSTER COUNT 5 [facility] COMPLETE INC INC AUTO&AUTO DIFRNTL WBC RADIOLOGI 58503 LANDEN SCHUSTER C EXAM 5 [facility] CHEST 2 INC INC VIEWS FRONTAL&L ATERAL TUBING A7037 SHAQ NEW USED WITH 5 HOME HOME POSITIVE MEDICAL MEDICAL AIRWAY EQUIPME EQUIPME PRESSURE DEVICE SMR PRIM 10830 LANDEN SCHUSTER SRC 5 [facility] GRAM/GIEM INC INC SA STAIN BCT FUNGI/ELPIDIO L COMPLEMEN 38287 LANDEN SCHUSTER T TOTAL 5 [facility] HEMOLYTIC INC INC ANTIBODY 22408 LANDEN SCHUSTER BACTERIUM 5 [facility] NOT INC INC ELSEWHERE SPECIFIED ANTIBODY 73888 LANDEN SCHUSTER RUBELLA 5 [facility] INC INC O2 CONC 1 E1390 SHAQ NEW DEL [...] AT EQUIPME EQUIPME PRSC FLW RATE BRNCDILAT 15189 FERMÍN FERMÍN RSPSE 4 ALTHEA [place] SPMTRY PRE&POST- BRNCDILAT ADMN PRESSURIZ 03550 FERMÍN FERMÍN ED/NONPRE 4 ALTHEA [place] SSURIZED INHALATIO N TREATMENT O2 CONC 1 E1390 SHAQ SHAQ DEL [...] AT EQUIPME EQUIPME PRSC FLW RATE CYSTO 16617 [facility] SM[facility]PLE [facility] LI[facility] REMOVAL ADULT & STONE & PED STENT ECG 32472 PEDRO RICHEY RICHEY PEDRO ROUTINE 4 MD ECG CONSULTIN W/LEAST G SRV 12 LDS I&R ONLY O2 CONC 1 E1390 SHAQ SHAQ DEL PORT 4 HOME HOME 85%/>02 MEDICAL MEDICAL CONC AT EQUIPME EQUIPME PRS FLW RATE ANES 90071 [place] MARISEL CHAVEZ TRURL 4 ANESTHESI FRAGMNTJ A GROUP MANJ&/RMV PS L URETERAL CALCULUS CYSTO 91469 CENTRAL SMITH W/INSERT 4 [facility] LIZZY URETERAL ADULT & STENT PED CYSTO 16042 CENTRAL SMITH W/URETERO 4 [facility] LIZZY SCOPY ADULT & W/LITHOTR PED IPSY DILATION 00003 CENTRAL SMITH NEPHROSTO 4 [place] LIZZY MY/URETER ADULT & /URETHRA PED RS&I COMPREHEN 75711 LANDEN SCHUSTER SIVE 4 [facility] METABOLIC INC INC PANEL C-REACTIV 76443 LANDEN SCHUSTER E PROTEIN 4 [facility] INC INC 25 04708 LANDEN SCHUSTER HYDROXY 4 [facility] INCLUDES INC INC FRACTIONS IF PERFORMED CYANOCOBA 30271 LANDEN SCHUSTER JOSE RAFAEL 4 [facility] VITAMIN INC INC B-12 RADIOLOGI 72681 LANDEN SCHUSTER C EXAM 4 [facility] CHEST 2 INC INC VIEWS FRONTAL&L ATERAL ANTIBODY 51077 LANDEN SCHUSTER BACTERIUM 4 [facility] NOT INC INC ELSEWHERE SPECIFIED BLOOD 52892 LANDEN SCHUSTER COUNT 4 [facility] COMPLETE INC INC AUTO&AUTO DIFRNTL WBC SEDIMENTA 56185 LANDEN SCHUSTER TIFRANCA RATE 4 [facility] RBC INC INC NON-AUTOM ATED GAMMAGLOB 39509 LANDEN SCHUSTER ULIN 4 [facility] IMMUNOGLO INC INC BULIN SUBCLASSE S [place] [place] [address] LANDEN SCHUSTER GAMMAGLOB 4 [facility] [place] [address] LANDEN SCHUSTER FREE 4 [facility] [place] [address] LANDEN SCHUSTER THYROID 4 [facility] STIMULATI INC INC NG HORMONE TSH PRESSURIZ 39950 FERMÍN FERMÍN ED/NONPRE 4 [place] SSURIZED INHALATIO N TREATMENT BRNCDILAT 20252 FERMÍN FREMÍN RSPSE 4 [place] SPMTRY PRE&POST- BRNCDILAT ADMN O2 CONC 1 E1390 SHAQ NEW GABRIELA PORT 4 HOME HOME 85%/>02 MEDICAL MEDICAL CONC AT EQUIPME EQUIPME PRSC FLW RATE O2 CONC 1 E1390 SHAQ ORDONEZRELL DEL PORT 3 HOME HOME 85%/>02 MEDICAL MEDICAL CONC AT EQUIPME EQUIPME PRSC FLW RATE O2 CONC 1 E1390 SHAQ ORDONEZRELL [facility] PORT 3 HOME HOME 85%/>02 MEDICAL MEDICAL CONC AT EQUIPME EQUIPME PRSC FLW RATE O2 CONC 1 E1390 SHAQ [place] PORT 3 HOME HOME 85%/>02 MEDICAL MEDICAL CONC AT EQUIPME EQUIPME PRSC FLW RATE TUBING A7037 SHAQ NEW USED WITH 3 HOME HOME POSITIVE MEDICAL MEDICAL AIRWAY EQUIPME EQUIPME PRESSURE DEVICE HEADGEAR A7035 SHAQ NEW USED 3 HOME HOME W/POSITIV MEDICAL MEDICAL E AIRWAY EQUIPME EQUIPME PRESSURE DEVICE FULL FACE A7030 SHAQ NEW MASK 3 HOME HOME USED MEDICAL MEDICAL W/POS EQUIPME EQUIPME ARWAY PRESS DEVICE EA O2 CONC 1 E1390 SHAQ [place] PORT [...] YOUR YOUR W/SM VOL 3 PHARMACY PHARMACY [facility] NEBULIZR NON-DISPB L BRNCDILAT 92104 FERMÍN KOVACS RSPSE 3 [place]THE[place] SPMTRY PRE&POST- BRNCDILAT ADMN PRESSURIZ 62798 FERMÍN KOVACS ED/NONPRE 3 ALTHEA ALTHEA SSURIZED INHALATIO N TREATMENT O2 CONC 1 E1390 SHAQ [place] PORT 3 HOME HOME 85%/>02 MEDICAL MEDICAL CONC AT EQUIPME EQUIPME PRSC FLW RATE O2 CONC 1 E1390 SHAQ [place] PORT 3 HOME HOME 85%/>02 MEDICAL MEDICAL CONC AT EQUIPME EQUIPME PRSC FLW RATE O2 CONC 1 E1390 SHAQ [place] PORT 3 HOME HOME 85%/>02 MEDICAL MEDICAL CONC AT EQUIPME EQUIPME PRSC FLW RATE INJECTION J1580 [facility] 3 N N GARAMYCIN [facility] HOSPITA HOSPITA GENTAMICI N UP TO 80 MG INJECTION J2370 [facility] 3 N N PHENYLEPH [facility] RINE HCL HOSPITA HOSPITA UP TO 1 ML INJECTION J1100 [facility] 3 N N DEXAMETHO [facility] SONE HOSPITA HOSPITA SODIUM PHOSPHATE 1 MG INJECTION J2001 [facility] 3 N N LIDOCAINE [facility] HCL HOSPITA HOSPITA INTRAVENO US INFUS 10 MG INJECTION J2405 [facility] 3 N N ONDANSETR [facility] ON HCL HOSPITA HOSPITA PER 1 MG INJECTION J2710 [facility] 3 N N NEOSTIGMI [facility] NE HOSPITA HOSPITA METHYLSUL FATE UP TO 0.5 MG INJECTION J3010 [facility] FENTANYL 3 N N CITRATE [facility] 0.1 MG HOSPITA HOSPITA PYELOPLAS 85747 [facility] TY SIMPLE 3 N N [facility] HOSPITA HOSPITA LAPAROSCO 99643 [facility] PY 3 [place] LIZZY RADICAL ADULT & NEPHRECTO PED MY CUSHN A7032 SHAQ SHAQ NASAL 3 HOME HOME MASK MEDICAL MEDICAL INTERFACE EQUIPME EQUIPME REPLACEME NT ONLY EACH ANES [address] [place] [address] XTRPRTL 3 ANESTHESI AN LOWER ABD A GROUP UR TRACT PS RENAL DON NFRCT COLLECTIO 63548 [facility] N VENOUS 3 N N BLOOD [facility] VENIPUNCT HOSPITA HOSPITA URE ECG 75612 [facility] ROUTINE 3 N N ECG [facility] W/LEAST HOSPITA HOSPITA 12 LDS TRCG ONLY W/O I&R COMPREHEN 93811 [facility] SIVE 3 N N METABOLIC [facility] PANEL HOSPITA HOSPITA URNLS DIP 60115 [facility] 3 N N STICK/TAB [facility] LET HOSPITA HOSPITA REAGENT AUTO MICROSCOP Y BLOOD 50245 [facility] COUNT 3 N N COMPLETE [facility] AUTO&AUT[place] [address] LANDEN SCHUSTER INFUSION 3 [facility] THERAPY/P INC INC ROPHYLAXI S /DX 1ST TO 1 HR EGD 12964 LANDEN SCHUSTER TRANSORAL 3 [facility] BIOPSY INC INC [place]ING[place] [address] PATHOLOGY CRISTINA SURG 3 & OLY PATHOLOGY CYTOLOGY LAB GROSS&MANJIT ROSCOPIC EXAM SPECIAL 79935 PATHOLOGY CRISTINA STAIN 3 & OLY GROUP 1 CYTOLOGY MICROORGA LAB [facility] I&R ANES 61515 [facility] UPPER GI 3 ANESTH ENDOSCOPY [place] [address] LANDEN SCHUSTER INFUSION 3 [facility] THERAPY INC INC PROPHYLAX IS/DX EA HOUR URINE 55147 LANDEN SCHUSTER 3 [facility] TEST INC INC VISUAL COLOR CMPRSN METHS O2 CONC 1 E1390 SHAQ ORDONEZRELL DEL PORT 3 HOME HOME 85%/>02 MEDICAL MEDICAL CONC AT EQUIPME EQUIPME PRSC FLW RATE DSTR 27673 ERICA VASCELLO NROLYTC 3 VASCELLO ALONDRA MCGILL MD PSC PARVERTEB FCT SNGL CRVCL/THO RA MODERATE 34245 ERICA VASCELLO SEDATJ 3 VASCELLO ALONDRA SOULEYMANE AGEE PSC PHYS/QHP 5/>YRS INIT 30 MIN DSTR 07505 ERICA VASCELLO NROLYTC 3 VASCELLO ALONDRA MCGILL MD PSC PARVERTEB FCT ADDL CRVCL/THO RA SPMTRY 31349 FERMÍN FERMÍN W/VC 3 ALTHEA ALTHEA EXPIRATOR Y ANA MARIA W/WO MXML VOL VNTJ CHEMODERV 29650 [facility] ATE 3 NEUROLOGY RAFAEL FACIAL/TR CENTER IGEM/CERV BRIANNA MUSC MIGRAINE BOTULINUM J0585 [facility] TOXIN 3 NEUROLOGY [facility] CENTER PER UNIT BRIANNA O2 CONC 1 E1390 SHAQ ORDONEZRELL DEL PORT 3 HOME HOME 85%/>02 MEDICAL MEDICAL CONC AT EQUIPME EQUIPME PRSC FLW RATE MODERATE 57970 ERICA VASCELLO SEDATJ 3 VASCELLO ALONDRA SAME PSC PHYS/QHP 5/>YRS INIT 30 MIN NJX 52777 ERICA VASCELLO DX/THER 3 VASCELLO ALONDRA AGT PVRT PSC FACET JT CRV/THRC 2ND LEVEL NJX 55705 ERICA VASCELLO DX/THER 3 VASCELLO ALONDRA AGT PVRT PSC FACET JT CRV/THRC 1 LEVEL O2 CONC 1 E1390 SHAQ [place] PORT 2 HOME HOME 85%/>02 MEDICAL MEDICAL CONC AT EQUIPME EQUIPME [facility] FLW RATE O2 CONC 1 E1390 SHAQ NEW DEL PORT 2 HOME HOME 85%/>02 MEDICAL MEDICAL CONC AT EQUIPME EQUIPME [facility] FLW RATE HEADGEAR A7035 SHAQ [...] EQUIPME EQUIPME ARWAY PRESS DEVICE EA PRESSURIZ 40789 FERMÍN FERMÍN ED/NONPRE 2 [place] SSURIZED INHALATIO N TREATMENT BRNCDILAT 59053 FERMÍN FERMÍN RSPSE 2 ALTHEA ALTHEA SPMTRY PRE&POST- BRNCDILAT ADMN BOTULINUM J0585 [facility] TOXIN 2 NEUROLOGY [facility] PER UNIT BRIANNA O2 CONC 1 E1390 SHAQ NEW DEL PORT 2 HOME HOME 85%/>02 MEDICAL MEDICAL CONC AT EQUIPME EQUIPME [facility] FLW RATE SEDIMENTA 70121 [facility] TION RATE 2 DIAGNOSTI DIAGNOSTI RBC CS AUTOMATED CYCLIC 52762 [facility] CITRULLIN 2 DIAGNOSTI DIAGNOSTI ATED [facility] PEPTIDE ANTIBODY C-REACTIV 21769 [facility] E PROTEIN 2 DIAGNOSTI DIAGNOSTI CS IMMUNOASS 96681 [facility] AY 2 DIAGNOSTI DIAGNOSTI ANALYTE [facility] QUANTITAT JADON NOS COLLECTIO 70375 [facility] N VENOUS 2 DIAGNOSTI DIAGNOSTI BLOOD [facility] VENIPUNCT URE CREATINE 43699 [facility] KINASE 2 DIAGNOSTI DIAGNOSTI TOTAL CS 25 05561 LANDEN SCHUSTER HYDROXY 2 [facility] INCLUDES [place] [address] LANDEN SCHUSTER GAMMAGLOB 2 [facility] ULIN IGE INC INC BLOOD 63611 LANDEN SCHUSTER COUNT 2 [facility] COMPLETE INC INC AUTO&AUTO DIFRNTL WBC RADIOLOGI 78765 LANDEN SCHUSTER C EXAM 2 [facility] CHEST 2 INC INC VIEWS FRONTAL&[place] [address] LANDEN SCHUSTER GAMMAGLOB 2 [facility] ULIN IGA [place] [address] LANDEN SCHUSTER THYROID 2 [facility] STIMULATI INC INC NG HORMONE TSH GAMMAGLOB 83498 LANDEN SCHUSTER ULIN 2 [facility] IMMUNOGLO INC INC BULIN SUBCLASSE S DEMO&/GABI 18309 FERMÍN FERMÍN L OF PT 2 ALTHEA [place] UTILIZ AERSL GEN/NEB/I NHLR/IP PRESSURIZ 44936 FERMÍN FERMÍN ED/NONPRE 2 ALTHEA ALTHEA SSURIZED INHALATIO N TREATMENT BRNCDILAT 26338 FERMÍN FERMÍN RSPSE 2 ALTHEA ALTHEA SPMTRY PRE&POST- BRNCDILAT ADMN ADMN SET A7005 [employer] MED W/SM VOL 2 EQUIPMENT EQUIPMENT NONFILTR INC INC NEBULIZR NON-DISPB L NEBULIZER E0570 [facility] [employer] MED WITH 2 EQUIPMENT EQUIPMENT COMPRESSO INC INC R FLUOROSCO 22005 ERICA VASCELLO PIC 2 VASCELLO ALONDRA GUIDANCE MD SCHWARTZ NEEDLE PLACEMENT ADD ON INJECTION 49533 ERICA VASCELLO 2 VASCELLO ALONDRA SINGLE/ML MD SCHWARTZ T TRIGGER POINT 3/> MUSCLES IIV3 53976 LANDEN SCHUSTER VACCINE 2 [facility] VIRUS 0.5 ML DOSAGE IM USE CREATININ 03733 LANDEN SCHUSTER E BLOOD 2 [place] [address] LANDEN SCHUSTER UREA 2 [facility] NITROGEN INC INC QUANTITAT JADON UROGRAPHY 14055 [facility] JOVANNY IV W/WO 2 MEDICAL BELINDA KUB W/WO IMAGING TOMOGRAPH ASS Y CYSTO 71473 [facility] SMITH W/SIMPLE 2 [facility] LIZZY REMOVAL ADULT & STONE & PED STENT CONTINUOU E0601 SHAQ ORDONEZRELL S 2 HOME HOME POSITIVE MEDICAL MEDICAL AIRWAY EQUIPME EQUIPME PRESSURE DEVICE DILATION 37220 [facility] NEPHROSTO 2 [facility] LIZZY MY/URETER ADULT & /URETHRA PED RS&I LEVEL III 71985 PATHOLOGY SALAZAR VAN SURG 2 & PATHOLOGY CYTOLOGY LAB GROSS&MANJIT ROSCOPIC EXAM CYSTO 90065 [facility] SM[facility] W/URETERO 2 [facility] BALL SCOPY ADULT & W/RMVL/MA PED [place] STONES CYSTO 97845 [facility]TR[facility] SM[facility] W/INSERT 2 [facility] LIZZY URETERAL ADULT & STENT PED ANES 13470 [facility] [place] [place] [facility] TRURL 2 ANESTHESI AN FRAGMNTJ A GROUP MANJ&/RMV PS L URETERAL CALCULUS CYSTO 56717 [facility]TR[facility] SMITH W/INSERT 2 [facility] LIZZY URETERAL ADULT & STENT PED ECG 44541 PEDRO RICHEY RICHEY PEDRO ROUTINE 2 MD ECG CONSULTIN W/LEAST G SERV 12 LDS I&R ONLY RADEX 80752 [facility] [place] SCALF OLY ABDOMEN 1 2 RADIOLOGY ANTEROPOS TERIOR VIEW ANES 42289 [facility] [place] MEDHAT LITHOTRP 2 ANESTHESI XTRCORP A GROUP SHOCK PS WAVE W/O WATER BATH FLUOROSCO 73034 CENTRAL SMITH PY SPX UP 2 [facility] LIZZY TO 1 ADULT & HOUR PED PHYS/QHP TIME LITHOTRIP 76256 [facility] SY 2 [facility] LIZZY XTRCORP ADULT & SHOCK PED WAVE URINE 74582 LANDEN MCKEONON 2 [facility] TEST INC INC VISUAL COLOR CMPRSN METHS BLOOD 18895 LANDEN SCHUSTER COUNT 2 [facility] COMPLETE INC INC AUTO&AUTO DIFRNTL WBC URNLS DIP 97866 LANDEN SCHUSTER 2 [facility] STICK/TAB INC INC LET REAGENT AUTO MICROSCOP Y CONTINUOU E0601 SHAQ NEW S 2 HOME HOME POSITIVE MEDICAL MEDICAL AIRWAY EQUIP[place] [address] LANDEN MCKEONON AMYLASE 2 [facility] INC INC COMPREHEN 40462 LANDEN SCHUSTER SIVE 2 [facility] [place] [address] LANDEN SCHUSTER LIPASE 2 [place] [address] LANDEN SCHUSTER ABDOMEN & 2 [facility] PELVIS INC INC W/O CONTRAST MATERIAL URNLS DIP 40005 LANDEN SCHUSTER 2 [facility] STICK/TAB INC INC LET REAGENT AUTO MICROSCOP Y SUSCEPTIB 64595 LANDEN LANDEN LTY STDY 2 [facility] ANTIMICRB INC INC IAL MICRO/AGA R DILUTJ GROUND A0425 ÓSCAR CANTRELL MILEAGE 2 AMBULANCE AMBULANCE PER SERVICE SERVICE STATUTE MILE BLOOD 45571 LANDEN MCKEONON COUNT 2 [facility] COMPLETE INC INC AUTO&AUTO DIFRNTL WBC THERAPEUT 51331 LANDEN SCHUSTER IC 2 [facility] INJECTION INC INC IV PUSH EACH NEW DRUG URINE 90422 LANDEN SCHUSTER 2 [facility] TEST INC INC VISUAL COLOR CMPRSN METHS CULTURE 08734 LANDEN SCHUSTER BACTERIAL 2 [facility] INC INC QUANTTATI VE COLONY COUNT URINE CULTURE 93472 LANDEN SCHUSTER BCT 2 [facility] ISOL&PRSM INC INC PTV ID ISOLATE EA URINE 3D 64207 LANDEN SCHUSTER RENDERING 2 [facility] INC INC W/INTERP& POSTPROC DIFF WORK STATION AMB A0427 ÓSCAR [facility] SERVICE 2 AMBULANCE AMBULANCE ALS SERVICE SERVICE EMERGENCY TRANSPORT LEVEL 1 THER 84683 LANDEN SCHUSTER PROPH/DX 2 [facility] NJX IV INC INC PUSH SINGLE/1S T SBST/DRUG CONTINUOU E0601 SHAQ NEW S 2 HOME [...] MEDICAL AIRWAY EQUIPME EQUIPME PRESSURE DEVICE DSTR 12584 ERICA ERICA NROLYTC 2 VASCELLO VASCELLO AGNT [facility] PARVERTEB FCT ADDL CRVCL/THO RA DSTR 83358 ERICA ERICA NROLYTC 2 VASCELLO VASCELLO AGNT [facility] PARVERTEB FCT SNGL CRVCL/THO RA CONTINUOU E0601 SHAQ NEW S 2 HOME HOME POSITIVE MEDICAL MEDICAL AIRWAY EQUIPME [place]QUIPME [place]ICE NJX 41429 ERCIA ERICA DX/THER 2 VASCELLO VASCELLO AGT PVRT [facility] PSC FACET JT CRV/THRC 1 LEVEL NJX 37308 ERICA ERICA DX/THER 2 VASCELLO VASCELLO AGT PVRT [facility] PSC FACET JT CRV/THRC 2ND LEVEL CONTINUOU E0601 SHAQ NEW S 2 HOME HOME POSITIVE MEDICAL MEDICAL AIRWAY EQUIPME EQUIPME PRESSURE DEVICE NJX 93569 ERICA ERICA DX/THER 2 VASCELLO VASCELLO AGT PVRT [facility] PSC FACET JT CRV/THRC 1 LEVEL NJX 03661 ERICA ERICA DX/THER 2 VASCELLO VASCELLO AGT PVRT [facility] PSC FACET JT CRV/THRC 2ND LEVEL [facility] A7032 [facility] NEW NASAL 2 HOME HOME MASK MEDICAL MEDICAL INTERFACE EQUIPME EQUIPME REPLACEME NT ONLY EACH DSTR 87717 ERICA ERICA NROLYTC 2 VASCELLO VASCELLO NANO AGEE [facility] PARVERTEB FCT ADDL LMBR/SACR AL DSTR 71648 ERICA ERICA NROLYTC 2 VASCELLO VASCELLO NANO SCHWARTZ MD [facility] PARVERTEB FCT SNGL LMBR/SACR AL MODERATE 06329 ERICA ERICA SEDATJ 2 VASCELLO VASCELLO SOULEYMANE AGEE [facility] PHYS/QHP 5/>YRS INIT 30 MIN CONTINUOU E0601 SHAQ NEW S 2 HOME HOME POSITIVE MEDICAL MEDICAL AIRWAY EQUIPME EQUIPME PRESSURE DEVICE DSTR 65907 ERICA ERICA NROLYTC 2 VASCELLO VASCELLO NANO SCHWARTZ MD [facility] PARVERTEB FCT ADDL LMBR/SACR AL DSTR 97484 ERICA ERICA NROLYTC 2 VASCELLO VASCELLO NANO AGEE [facility] PARVERTEB FCT SNGL LMBR/SACR AL BASIC 16946 LANDEN SCHUSTER METABOLIC 2 [facility] PANEL INC INC CALCIUM TOTAL RADIOLOGI 57382 [facility] C 2 MEDICAL MEDICAL EXAMINATI IMAGING IMAGING ON CHEST [place] [address] LANDEN SCHUSTER TROPONIN 2 [facility] QUANTITAT INC INC JADON ECG 61104 GRISELDA RECIO LIZZETH ROUTINE 2 EMERGENCY ECG SERVICES W/LEAST 12 LDS I&R ONLY BLOOD 58593 LANDEN SCHUSTER COUNT 2 [facility] COMPLETE INC INC AUTO&AUTO DIFRNTL WBC CREATINE 10510 LANDEN SCHUSTER KINASE MB 2 [facility] FRACTION INC INC ONLY CREATINE 16833 LANDEN MCKEONON KINASE 2 [facility] T[place] NJX 39602 ERICA ERICA DX/THER 2 VASCELLO VASCELLO AGT PVRSue AGEE [facility] PSC FACET JT LMBR/SAC 3+ LEVEL NJX 84235 ERICA ERICA DX/THER 2 VASCELLO VASCELLO AGT PVRT MD EFREN AGEE PSC FACET JT LMBR/SAC 1 LEVEL NJX 12622 ERICA ERICA DX/THER 2 VASCELLO VASCELLO AGT PVRT MD EFR[facility] AGEE PSC FACET JT LMBR/SAC 2ND LEVEL CONTINUOU E0601 SHAQ SHAQ S 2 HOME [...] DEVICE FULL FACE A7030 SHAQ SHAQ MASK 1 HOME HOME USED MEDICAL MEDICAL W/POS EQUIPME EQUIPME ARWAY PRESS DEVICE EA HEADGEAR A7035 SHAQ ORDONEZRELL USED 1 HOME HOME W/POSITIV MEDICAL MEDICAL E AIRWAY EQUIPME EQUIPME PRESSURE DEVICE TUBING A7037 SHAQ SHAQ USED WITH 1 HOME HOME POSITIVE MEDICAL MEDICAL AIRWAY EQUIPME EQUIPME PRESSURE DEVICE HUMDIFIR E0562 SHAQ SHAQ HEATED 1 HOME HOME USED MEDICAL MEDICAL W/POS EQUIPME EQUIPME ARWAY PRESSURE DEVICE POLYSOM 10107 LANDEN SCHUSTER 6/>YRS 1 [facility] SLEEP 4/> INC INC ADDL SHWETHA ATTND IIV3 08666 LANDEN SCHUSTER VACCINE 1 [facility] VIRUS 0.5 ML DOSAGE IM USE WRIST L3908 SHAQ NEW HAND 1 HOME HOME ORTHOSIS MEDICAL MEDICAL EXT EQUIPME EQUIPME CONTROL COCK-UP PREFAB RADEX 31851 LANDEN SCHUSTER WRIST 1 [facility] COMPLETE INC INC MINIMUM 3 VIEWS RADEX 27631 LANDEN SCHUSTER WRIST 1 [facility] COMPLETE INC INC MINIMUM 3 VIEWS RADIOLOGI 17763 LANDEN SCHUSTER C 1 [facility] EXAMINATI INC INC ON KNEE 1/2 VIEWS RADIOLOGI 90005 LANDEN SCHUSTER C 1 [facility] EXAMINATI INC INC ON KNEE 3 VIEWS 3D 98556 LANDEN SCHUSTER RENDERING 1 [facility] INC INC W/INTERP& POSTPROC DIFF WORK STATION RADEX 88518 [facility] JOVANNY WRIST 1 MEDICAL BELINDA COMPLETE IMAGING MINIMUM 3 [place] [address] [facility] PETTEY 1 PHYSICIAN JAM RADIAL&UL S GROUP JOCE SHAFT FRACTURES W/O MAN RADEX 07529 LANDEN SCHUSTER WRIST 2 1 [facility] VIEWS INC INC SLINGS A4565 KEVIN L.P. KEVIN L.P. 1 CLTX DSTL 58705 GRISELDA KELLY RADIAL 1 EMERGENCY FX/EPIPHY SERVICES SL SEP W/[place] [address] LANDEN LANDEN MAXILLOFA 1 [facility] CIAL W/[place] [address] LANDEN SCHUSTER INFUSION 1 [facility] THERAPY/P INC INC ROPHYLAXI S /DX 1ST TO 1 [place] [address] LANDEN SCHUSTER INFUSION 1 [facility] THER INC INC PROPH ADDL SEQUENTIA L TO 1 HR BLOOD 57639 LANDEN SCHUSTER COUNT 0 [facility] COMPLETE INC INC AUTO&AUTO DIFRNTL WBC MRI BRAIN 31396 JAZMINE C JOVANNY BRAIN 0 JOVANNY BELINDA STEM W/O CONTRAST MATERIAL ANTINUCLE 87931 LANDEN SCHUSTER AR 0 [facility] ANTIBODIE INC INC S CARLOS RHEUMATOI 75387 LANDEN SCHUSTER D FACTOR 0 [facility] QUANTITAT INC INC JADON C-REACTIV 21683 LANDEN SCHUSTER E PROTEIN 0 [facility] INC INC PROTEIN 88096 LANDEN SCHUSTER ELECTROPH 0 [facility] ORETIC INC INC FRACTJ&QU ANTJ SERUM CREATINE 97967 LANDEN SCHUSTER KINASE 0 [facility] TOTAL INC INC SCREENING G0202 [place] JOVANNY 0 MEDICAL BELINDA MAMMOGRAP IMAGING HY JERRY ASS INCL CAD WHEN PERFORMD COMPUTER- 34272 CHRISTIE VALENTINECHER AIDED 0 MEDICAL BELINDA DETECTION IMAGING ASS SCREENING MAMMOGRAP HY BLOOD 96916 LANDEN SCHUSTER COUNT 0 [facility] COMPLETE INC INC AUTO&AUTO DIFRNTL WBC IRON 91230 LANDEN SCHUSTER BINDING 0 [facility] CAPACITY INC INC POTASSIUM 80463 LANDEN SCHUSTER URINE 0 [place] [address] LANDEN SCHUSTER MAGNESIUM 0 [place] [address] LANDEN SCHUSTER FERRITIN 0 [place] [address] LANDEN SCHUSTER IRON 0 [facility] INC INC BASIC 18312 LANDEN SCHUSTER METABOLIC 0 [facility] PANEL INC INC CALCIUM TOTAL URINE 77804 LANDEN SCHUSTER 0 [facility] TEST INC [place] [address] LANDEN SCHUSTER INFUSION 0 [facility] THERAPY INC INC PROPHYLAX IS/DX EA HOUR ENDOSCOPI 4542 LANDEN MCKEONON C 0 [facility] POLYPECTO INC INC MY OF LARGE INTESTINE [ENDOSCOP 4836 LANDEN SCHUSTER IC] 0 [facility] [place]CTO [place] [address] PATHOLOGY PATHOLOGY SURG 0 & & PATHOLOGY CYTOLOGY CYTOLOGY LAB LAB GROSS&MANJIT [place]COPIC [place]AM [place] FLX [address]607 [place] KELI ANT W/RMVL 0 MEDICAL OF TUMOR SERV [place] [address] LANDEN SCHUSTER INFUSION 0 [facility] THERAPY/P INC INC ROPHYLAXI S /DX 1ST TO 1 HR IIV3 84767 LANDEN SCHUSTER VACCINE 0 [facility] VIRUS 0.5 ML DOSAGE IM USE BLOOD 00824 LANDEN SCHUSTER COUNT 0 [facility] COMPLETE INC INC AUTO&AUTO DIFRNTL WBC GONADOTRO 52953 LANDEN SCHUSTER PIN 0 [facility] [place] [address] LANDEN LANDEN INFUSION 0 [facility] THERAPY/P INC INC ROPHYLAXI S /DX 1ST TO 1 HR EGD 57803 [place] KELI ANT TRANSORAL 0 MEDICAL BIOPSY SERV SINGLE/[place] [address] PATHOLOGY PATHOLOGY SURG 0 & & PATHOLOGY CYTOLOGY CYTOLOGY LAB LAB GROSS&MANJIT ROSCOPIC EXAM SPECIAL 23703 PATHOLOGY PATHOLOGY STAIN 0 & & GROUP 1 CYTOLOGY CYTOLOGY MICROORGA LAB LAB [facility] I&R ESOPHAGOG 4516 [facility] ASTRODUOD 0 [facility] [place] [address] [facility] INFUSION 0 [facility] THERAPY INC INC PROPHYLAX IS/DX EA HOUR BLOOD 87510 [facility] COUNT 0 [facility] COMPLETE INC INC AUTO&AUTO DIFRNTL WBC BLOOD 06246 [facility] COUNT 0 [facility] COMPLETE INC INC AUTO&AUTO DIFRNTL WBC POTASSIUM 94044 [facility] SERUM 0 [facility] PLASMA/[place] B[place] [address] [place] UPR W/WO 0 MEDICAL BELINDA GLUCOSE IMAGING W/SM ASS INTEST FOLLW-THR U RADEX 67269 [facility] UPPER GI 0 [facility] W/WO INC INC GLUCAGON/ DELAY IMAGES W/KUB BLOOD 57780 [facility] OCCULT 0 [facility] PEROXIDAS INC INC E ACTV QUAL FECES 1-3 SPEC BLOOD 52646 [facility] COUNT 0 [facility] COMPLETE INC INC AUTO&[place] [address] [facility] FOLIC 0 [facility] ACID INC INC SERUM POTASSIUM 97215 [facility] SERUM 0 [facility] PLASMA/WH INC INC OLE BLOOD CYANOCOBA 01977 [facility] JOSE RAFAEL 0 [facility] VITAMIN INC INC B-12 [place] [address] [facility] THYROID 0 [facility] [place] [address] [facility] INFUSION 9 [facility] THERAPY INC INC PROPHYLAX IS/DX EA HOUR OTH & OPN 5304 LANDENFRANCA SCHUST[facility] REP 9 [facility] INDIRECT INC INC ING HERNIA W/GRAFT/[place] [address] [facility] INFUSION 9 [facility] THERAPY/P INC INC ROPHYLAXI S /DX 1ST TO 1 HR RPR 1ST 35453 [facility] INGUN 9 [facility] HRNA AGE INC INC 5 YRS/> INCARCERA SREE ANESTHESI 81063 [facility], A HERNIA 9 ANESTH HAZEL A REPAIR OF THE LOWER [place] ABDOMEN NOS THERAPEUT 97498 [facility] IC 9 [facility] INJECTION INC INC IV PUSH EACH NEW DRUG GONADOTRO 72126 [facility] PIN 9 [facility] CHORIONIC INC INC QUALITATI VE BLOOD 33427 [facility] COUNT 9 [facility] COMPLETE INC INC AUTO&AUTO DIFRNTL WBC BASIC 79906 [facility] METABOLIC 9 [facility] PANEL INC INC CALCIUM TOTAL Encounters Encounter Start End Date Code Location Performer Type Date OFFICE 31575 [facility] OUTPATI[facility] 7 7 PHYSICIAN T VISIT S GROUP 15 MINUTES [facility] 7 7 [facility] - 7 7 [facility] INC T OFFICE 41061 [facility] OUTPATIEN 7 7 T NEW 45 MINUT[facility] 04[facility] T VISIT S GROUP 25 MINUTES OFFICE 91054 [facility] OUTPATIEN 7 7 [facility] T VISIT 5 INC MINUTES [facility] - 7 7 [facility] INC T OFFICE 74692 [facility] ALL[facility] JR OUTPATIEN 7 7 PHYSICIAN T NEW 20 S GROUP MINUTES [facility] 7 7 [facility]PAT[facility] INC T [facility] - 7 7 [facility]PAT[facility] INC T [facility] - 7 7 [facility]PAT[facility] INC T [facility] - 7 7 [facility] OUTPATIEN INC T INITIAL 10472 [facility] HARPEL PREVENTIV 7 7 PHYSICIAN E S GROUP MEDICINE NEW PATIENT [id number] [facility] - 7 7 [facility] OUTPATIEN INC T OFFICE 87528 [facility] OUTPATIEN 7 7 PHYSICIAN T VISIT S GROUP 40 MINUTES [facility] - 7 7 [facility] T [facility] - 7 7 [facility] 7 7 [facility] 7 7 [facility] OUTPAT[facility] INC T EMERGENCY 72851 [facility] [address] [facility] HIGH/URGE NT SEVERITY OFFICE 84497 [facility] T NEW 30 CARE MINUTES CENTER OFFICE 40096 [facility] T VISIT 15 MINUTES [facility] - 7 7 [facility]PATI[facility] INC T OFFICE 70889 [facility] OUTPATIEN 6 6 NURSE CK BING T VISIT PRACTITIO 40 NER GR MINUTES [facility] 57242 [facility] CONSULTAT 6 6 NURSE CK BING ION PRACTITIO NEW/ESTAB NER GR PATIENT 60 MIN [facility] - 6 6 [facility] OUTPATIEN INC T OFFICE 18116 MISSARY ME[facility] 6 OLY OLY T VISIT 15 MINUTES EMERGENCY 95159 MONTERROS[facility] MONTERROSO DEPT 5 5 JOSS JOSS VISIT HIGH SEVERITY& THREAT FUN EMERGENCY [id number] EDISON ATKINSON DEPT 5 5 VISIT HIGH SEVERITY& THREAT FUNJ OFFICE 90950 FERMÍN KOVACS OUTPATIEN 5 5 ALTHEA ALTHEA T VISIT 40 MINUTES [facility] T OFFICE 38409 MEÑO BAILEY 4 4 OLY OLY T VISIT 15 MINUTES OFFICE 86006 MEÑO BAILEY 4 4 OLY OLY T VISIT 15 MINUTES OFFICE 38471 MEÑO BAILEY 4 4 OLY OLY T VISIT 15 MINUTES OFFICE 33120 MEÑO BAILEY 4 4 OLY OLY T VISIT 15 MINUTES OFFICE 84088 FERMÍN KOVACS OUTPATIEN 4 4 ALTHEA ALTHEA T VISIT 40 MINUTES OFFICE 73276 [facility] 4 4 [place] LIZZY ION ADULT & NEW/ESTAB PED PATIENT 40 MIN Emergency TUAN Quintero MD (ER) 4 21:38 4 23:12 [facility] EMERGENCY 96384 GRISELDA QUINTERO DEPT 4 4 EMERGENCY MANJIT VISIT SERVICES HIGH SEVERITY& THREAT [facility] - [facility] 4 [facility] T OFFICE 07207 FERMÍN KOVACS OUTPATIEN 4 4 ALTHEA ALTHEA T VISIT 40 MINUTES OFFICE 19287 MEÑO BAILEY 3 3 OLY OLY T VISIT 15 MINUTES OFFICE 69034 MEÑO BAILEY 3 3 OLY OLY T VISIT 15 MINUTES OFFICE 99064 FERMÍN FERMÍN OUTPATIEN 3 3 ALTHEA ALTHEA T VISIT 40 MINUTES OFFICE 82563 ARTHRITIS MD ARTEMIO OUTPATIEN 3 3 AND DAVE T VISIT OSTEOPORO 15 SIS C MINUTES HOME 73312 [facility] V[facility] EST 3 3 HOME PT HEALTH MOD-HI SEVERITY 40 MINUTES HOME 43112 [facility] VISIT EST 3 3 HOME PT HEALTH MOD-HI SEVERITY 40 MINUTES HOME [facility], 3 3 HOME OUTPATIEN HEALTH T HOME 48741 [facility] VISIT EST 3 3 HOME PT HEALTH MOD-HI SEVERITY 40 MINUTES HOME 90033 [facility] VISIT EST 3 3 HOME PT HEALTH MOD-HI SEVERITY 40 MINUTES [facility] 3 3 [facility] 3 3 N [facility] 3 3 [facility] T OFFICE 04425 [facility] JUDIE OUTPATIEN 3 3 PHYSICIAN ALIREZA GUILLORY 30 S GROUP MINUTES OFFICE 03532 FERMÍN FERMÍN OUTPATIEN 3 3 ALTHEA OH T VISIT 25 MINUTES OFFICE 20843 ZACARIAS REMY OUTFARNAZ 3 3 NEUROLOGY [facility]FAEL T VISIT CENTER 25 BRIANNA MINUTES OFFICE 82626 FERMÍN FERMÍN OUTPATIEN 2 2 ALTHEA OH T VISIT 25 MINUTES OFFICE 74077 ARTHRITIS MD ARTEMIO CONSULTAT 2 2 AND MAN ION OSTEOPORO NEW/ESTAB SIS C PATIENT 60 MIN [facility] T OFFICE 38642 FERMÍN FERMÍN OUTPATIEN 2 2 ALTHEA Rogers NEW 60 MINUTES OFFICE 88373 ERICA VASCELLO OUTPATIEN 2 2 VASCELLO ALONDRA T VISIT PSC 25 MINUTES [facility] 2 [facility] T OFFICE 52887 ZACARIAS REMY OUTPATIEN 2 2 HEALTH RAFAEL T VISIT MEDICAL 25 GROUP MINUTES OFFICE 92730 MEÑO JEFFRIESEN 2 2 OLY OLY T VISIT 25 MINUTES OFFICE 39558 [facility] 2 2 [place] LIZZ[place] ION ADULT & NEW/ESTAB PED PATIENT 40 MIN [facility] 2 [facility] T OFFICE 84609 MEÑO WILDER OUTMAUEN 2 2 OLY OLY T VISIT 15 MINUTES EMERGENCY 37767 GRISELDA QUINTERO DEPT 2 2 EMERGENCY EMERSON VISIT SERVICES HIGH SEVERITY& THREAT FUN EMERGENCY 35428 [facility] 2 2 [facility] DEPARTMEN [facility] T VISIT HIGH/URGE NT SEVERITY [facility] 2 [facility] T EMERGENCY 31280 [facility] 2 2 [facility] DEPARTMEN INC T VISIT HIGH/URGE NT SEVERITY [facility] 2 2 [facility] T EMERGENCY 06941 GRISELDA MOREAU DEPT 2 2 EMERGENCY VISIT SERVICES HIGH SEVERITY& THREAT [facility] - [facility] 1 [facility] T OFFICE 81975 MEÑO BAILEY 1 1 OLY OLY T VISIT 15 MINUTES [facility] 1 [facility] [facility] 1 [facility] INC T OFFICE 64122 ZACARIAS REMY OUTPATIEN 1 1 NEUROLOGY [facility] T VISIT CENTER 25 BRIANNA MINUTES [facility] 1 [facility] EMERGENCY 29237 GRISELDA PASTRANAMei KELLY 1 1 EMERGENCY DEPARTMEN SERVICES T VISIT HIGH/URGE NT SEVERITY [facility] EMERGENCY 92406 [facility] 1 1 [facility] DEPARTMEN [facility] T VISIT LOW/MODER SEVERITY OFFICE 38711 MEÑO WILDER OUTPATIEN 1 1 OLY OLY [facility] 30 MINUTES [facility] 0 [facility] OFFICE 78543 SAMIA ARREDONDO OUTPATIEN 0 0 MEDICAL T VISIT SERV 25 FOUNDATIO MINUTES [facility] - 0 0 [facility] 0 0 [facility] 0 0 [facility] OFFICE 94519 ZACARIAS REMY CONSULTAT 0 0 NEUROLOGY [facility] NEW/ESTAB BRIANNA PATIENT 80 MIN [facility] OFFICE 59198 CARRERA DEANDRE BAILEY 0 0 SHARMAINE SHARMAINE T VISIT 15 MINUTES OFFICE 28872 DEANDRE CARRERA OUTPATIEN 0 0 SHARMAINE A SHARMAINE A T VISIT 15 MINUTES [facility] - 9 9 [facility] - 9 9 [facility] OUTPATI[facility] T OFFICE 95105 JUDIE DIMAS CONSULTAT 9 9 , LISA GONZALEZ ION NEW/ESTAB PATIENT 60 MIN OFFICE 88046 DEANDRE CARRERA OUTPATIEN 9 9 SHARMAINE A SHARMAINE A T VISIT 15 MINUTES OFFICE 50416 DEANDRE CARRERA OUTPATIEN 9 9 SHARMAINE A SHARMAINE A T VISIT 15 MINUTES OFFICE 09942 DEANDRE CARRERA OUTPATIEN 9 9 SHARMAINE A SHARMAINE A T VISIT 15 MINUTES
--- OUTSIDE RECORDS SUMMARY | 2017-01-16 16:32 | External Medical Summary Rpt | CCD ---
Author Author , MYRIAM Organization [facility] Address Unknown Phone Care Team Providers Care Auricular Detoxification Specialist Name Role Phone TERESO PHYLICIA, TERESO PHYLICIA Unavailable Unavailable MAYO GUTIERREZ, MAYO Unavailable Unavailable GUTIERREZ [facility], Unavailable Unavailable [facility] MD DAVE ULLOA, ARTEMIO, Unavailable Unavailable TE RAMOS JR, JR Unavailable Unavailable [facility], Unavailable Unavailable [facility] ARNOLD, ARNOLD Unavailable Unavailable ARNOLD, ARNOLD Unavailable Unavailable ARNOLD OLY, ARNOLD Unavailable Unavailable OLY ARNOLD OLY, ARNOLD Unavailable Unavailable OLY [facility] AND Unavailable Unavailable [facility] C, [facility] AYOOB AND, AYOOB AND Unavailable Unavailable [facility] Un[facility] Unavailable Unavailable [facility]ATORIES, [facility] Unavailable Unavailable [facility]IES, [facility] Unavailable Unavailable CENTER, [facility], PLAZA Unavailable Unavailable KELI ANT, KELI ANT Unavailable Unavailable [facility] Unavailable Unavailable SERVICE, [facility] Unavailable Unavailable SERVICE, [facility] EDISON DEMETRIO, EDISON DEMETRIO Unavailable Unavailable EDISON DEMETRIO, EDISON DEMETRIO Unavailable Unavailable SMITH LIZZY, Unavailable Unavailable SMITH LIZZY MERARY, MERARY Unavailable Unavailable [facility] Unavailable Unavailable ADULT & PED, [facility], Unavailable Unavailable [facility] RICHEY PEDRO, RICHEY PEDRO Unavailable Unavailable JOVANNY BELINDA, Unavailable Unavailable JOVANNY BELINDA BUCK, BUCK Unavailable Unavailable JAZMINE C JOVANNY, Unavailable Unavailable JAZMINE C JOVANNY [facility] [place] [facility] [place] [place], [facility] Unavailable Unavailable [facility] Unavailable Unavailable JONEL RAAFEL, Unavailable Unavailable JONEL RAFAEL [facility], Unavailable Unavailable [facility] EM IV OLY, EM Unavailable Unavailable IV OLY FRYMAN, FRYMAN Unavailable Unavailable SHIREEN, SHIREEN Unavailable Unavailable SHIREEN MANJIT, SHIREEN Unavailable Unavailable MANJIT [facility] Unavailable Unavailable HOSPITA, [facility] ALEX WAY, ALEX WAY Unavailable Unavailable RECIO LIZZETH, RECIO LIZZETH Unavailable Unavailable HABASH, HABASH Unavailable Unavailable HABASH, HABASH Unavailable Unavailable HARPEL, HARPEL Unavailable Unavailable SIMEON ISHMAEL, SIMEON Unavailable Unavailable ISHMAEL [facility] Unavailable Unavailable CENTER, [facility] Unavailable Unavailable CENTER, [facility] Unavailable Unavailable INC, [facility] Unavailable Unavailable HOSPITAL P, [facility], Unavailable Unavailable [facility] Unavailable Unavailable EQUIPMENT, [facility] Unavailable GROUP PS, [facility] Unavailable Unavailable [facility], [facility] Unavailable Unavailable MEDICAL G, [facility] K[facility]F NURSE Unavailable Unavailable PRACTITIONER GR, [facility] NURSE PRACTITIONER GR EMI POSEY, Unavailable Unavailable MARIE MAYORGA Unavailable Unavailable [facility] Un[facility], [facility] CRISTINA OLY, CRISTINA Unavailable Unavailable OLY JEANNETTE SORENSEN MD Un[facility] JOINER CHAVEZ, JOINER CHAVEZ Unavailable Unavailable [facility] Unavailable Unavailable SERVICES, [facility] FERMÍN ALTHEA, Unavailable Unavailable FERMÍ[facility] ALTHEA FERMÍN ALTHEA, Unavailable Unavailable FERMÍN ALTHEA [facility], Unavailable Unavailable [facility] Unavailable Unavailable [facility], [facility] DEANDRE ALEMAN Unavailable Unavailable SHARMAINE [...] VASCELLO ALONDRA [facility] Unavailable Unavailable [address], [facility] NAEL POSEY, NAEL Unavailable Unavailable [facility] Unavailable Unavailable [facility] Un[facility] [place] [place] MONTREROSO JOSS, MONTERROSO Unavailable Unavailable [facility]OSS MONTERROSO JOSS, MONTERROSO Unavailable Unavailable JOSS WILP, WILP Unavailable Unavailable [facility], Unavailable [facility], Unavailable Unavailable [facility] Purpose Continuity of Care Document - 07-26-2008 through 2016 Problems Code Diagnosis DOS Provider Status R55 SYNCOPE AND 12-13-2016 [facility] COLLAPSE [facility] GROUP N63 UNSPECIFIED 12-05-2016 [facility] LUMP IN PHYSICIANS BREAST GROUP [id number] ASHD [place] 11-30-2016 [facility]Y [facility] W/UNS INC ANGINA PECTORIS J449 CHRONIC 11-30-2016 [facility]STRUCTIVE [facility] PULMONARY INC DISEASE UNS Z720 TOBACCO USE 11-30-2016 [facility] INC Z955 PRESENCE OF 11-30-2016 [facility] CORONARY [facility] ANGIOPLASTY INC IMPLANT & GRAFT I46823 NON-PRSS 11-25-2016 [facility] DER[facility] SKIN OTH SITE LTD BRKDWN SKN N6001 SOLITARY 11-24-2016 [place] CYST OF MEDICAL RIGHT IMAGING ASS BREAST N6002 SOLITARY 11-24-2016 [place] CYST OF MEDICAL LEFT BREAST IMAGING ASS R928 OTH ABNORM 11-24-2016 [place] & MEDICAL INCONCLUSIV IMAGING ASS E FIND ON DX IMAG BREAST G72427 ARCUS 11-23-2016 [facility] SENILIS BILATERAL H2513 AGE-RELATED 11-23-2016 [facility] NUCLEAR CATARACT BILATERAL Q87500 REGULAR 11-23-2016 [facility] ASTIGMATISM BILATERAL L570 ACTINIC 11-23-2016 [facility] KERATOSIS D259 LEIOMYOMA 11-17-2016 [facility] OF [facility] PHYSICIANS UNSPECIFIED GROUP N950 POSTMENOPAU 11-17-2016 [facility] [place] PHYSICIANS BLEEDING GROUP R21 RASH AND 11-17-2016 [facility] OTHER [facility] NONSPECIFIC INC SKIN ERUPTION L91723 OTHER LONG 11-17-2016 [facility] TERM [facility] CURRENT INC DRUG THERAPY S09543D FX UNS 11-15-2016 [facility] CARPAL [facility] HOME UNS WRIST MEDICAL INITIAL ENC EQUIPME CLOS FX K4090 UNILAT 11-11-2016 [facility] INGUINAL PHYSICIANS CEDRICK W/O GROUP OBST/GANGRE N NOT RECUR I712 THORACIC 11-10-2016 [facility] AORTIC [facility] ANEURYSM INC WITHOUT RUPTURE I716 THORACOABDO 11-09-2016 [facility] MEDICAL AORTIC IMAGING ASS ANEURYSM WITHOUT RUPTURE I728 ANEURYSM OF 11-09-2016 [place] OTHER MEDICAL SPECIFIED IMAGING ASS ARTERIES J432 CENTRILOBUL 11-09-2016 [place] AR MEDICAL EMPHYSEMA IMAGING ASS K449 DIAPHRAGMAT 11-09-2016 [place] IC HERNIA MEDICAL W/O IMAGING ASS OBSTRUCTION OR GANGRENE N2889 OTHER 11-09-2016 [place] SPECIFIED MEDICAL DISORDERS IMAGING ASS OF KIDNEY AND URETER N289 DISORDER OF 11-09-2016 [place] [facility]NEY AND MEDICAL URETER IMAGING ASS UNSPECIFIED R921 MAMMO 11-04-2016 [place] CALCIFICATI MEDICAL ON FOUND ON IMAGING ASS DX IMAGING BREAST Z1231 ENCOUNTER 11-04-2016 [place] SCREENING MEDICAL MAMMO MALIG IMAGING ASS NEOPLASM BREAST I10 ESSENTIAL 10-27-2016 [facility] PRIMARY PHYSICIANS HYPERTENSIO GROUP N A21948 ENCOUNTER 10-27-2016 [facility] 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 EXAM PHYSICIANS GENERAL RTN GROUP W/ABNORMAL FIND Z66152 ENCOUNTER 10-27-2016 [facility] 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 EXAM REFERNCE GENERAL RTN LABORATORIE W/O S ABNORMAL FIND Z1212 ENCOUNTER 10-27-2016 [facility] SCREENING PHYSICIANS MALIGNANT GROUP NEOPLASM RECTUM E785 HYPERLIPIDE 10-20-2016 [facility] JAIEM PHYSICIANS UNSPECIFIED GROUP I119 HYPERTENSIV 10-20-2016 [facility] E HEART PHYSICIANS DISEASE GROUP WITHOUT HEART FAILURE I208 OTHER FORMS 10-20-2016 [facility] OF ANGINA PHYSICIANS PECTORIS GROUP I2510 ASHD TWENT[place]INE [place] 10-20-2016 [facility] CORONARY PHYSICIANS ARTERY W/O GROUP ANGINA PECTORIS Z8679 PERSONAL 10-20-2016 [facility] HISTORY OTH PHYSICIANS DISEASES GROUP CIRCULATORY SYSTEM I214 NON-ST 09-01-2016 [facility] ELEVATION PHYSICIANS MYOCARDIAL GROUP INFARCTION G98572 ASHD [place] 09-01-2016 [facility] COR ART PHYSICIANS W/UNSTABLE GROUP ANGINA PECTORIS J441 CHRONIC 08-31-2016 [facility] OBSTRUCTIVE PHYSICIANS PULMONARY GROUP DZ W/EXACERBAT ION I252 OLD 08-30-2016 [facility] P R0602 SHORTNESS 08-30-2016 [facility] BREATH [facility]ANS, [facility] R61 GENERALIZED 08-30-2016 [facility] [place] [facility] IS R6884 JAW PAIN 08-30-2016 [facility] [facility]IC[facility], [facility] J020 STREPTOCOCC 08-23-2016 [facility] J0190 ACUTE 06-09-2016 [facility] SINUSITIS UNSPECIFIED J209 ACUTE 06-09-2016 [facility] BRONCHITIS UNSPECIFIED G4734 IDIOPATH 04-04-2016 [facility] NONOBST INC ALVEOL HYPOVENTILA TN R634 ABNORMAL 04-04-2016 [facility] WEIGHT LOSS [facility] INC R911 SOLITARY 04-04-2016 [facility] PULMONARY [facility] NODULE INC R918 OTHER 04-04-2016 [place] NONSPECIFIC MEDICAL ABNORMAL IMAGING ASS FINDING OF LUNG FIELD G4730 SLEEP APNEA 02-12-2016 [facility] NURSE PRACTITIONE UNSPECIFIED R GR J439 EMPHYSEMA 02-12-2016 [facility] NURSE UNSPECIFIED PRACTITIONE R GR Z23 ENCOUNTER 02-03-2016 [facility] IMMUNIZATIO [facility] DEPT N SINDHU J069 ACUTE UPPER 12-03-2015 [facility] OLY RESPIRATORY INFECTION UNSPECIFIED 70644 OBSTRUCTIVE 12-24-2014 [facility] APNEA MEDICAL EQUIPME 496 CHRONIC 12-24-2014 [facility] NEC 49766 UNSPECIFIED 12-16-2014 [facility] CLOSED HOME FRACTURE OF MEDICAL CARPAL EQUIPME BONE 4412 THORACIC 08-17-2014 [facility] ANEURYSM WITHOUT MENTION OF RUPTURE 68672 SHORTNESS 08-17-2014 [facility] G 33090 OTHER 08-17-2014 [place] [facility] [address] CHEST PAIN 08-17-2014 [facility] UNSPECIFIED [facility]IOLOGY 4419 AORTIC 08-05-2014 [facility] DEMETRIO ANEUR UNSPEC SITE WITHOUT MENTION RUPTURE 5119 UNSPECIFIED 08-05-2014 [facility] [place] PLEURAL [facility] EFFUSION 40244 PAINFUL 08-05-2014 [facility] DEMETRIO RESPIRATION 4019 UNSPECIFIED 08-01-2014 [facility] HYPERT[place]SIO [place]ICAL G N [address]64 DISSECTING 08-01-2014 [facility] AORTIC HEALTH ANEURYSM MEDICAL G THORACIC 32273 DISSECTING 08-01-2014 [facility] [place] [facility] RADIOLOG[facility] ANEURYSM THORACOABDO ERIN 7140 RHEUMATOID 08-01-2014 [facility] ARTHRITIS [facility] G 88048 DISSECTING 07-28-2014 [facility] PSC UNSPECIFIED SITE 5180 PULMONARY 07-28-2014 [facility] [place] COLLAPSE [facility] V5882 ENCOUNTER 07-28-2014 [facility] [place] FITTING&ADJ RADIOLOGY NON-VASCULA R CATHETER NEC 4422 ANEURYSM OF 07-27-2014 [facility] 22230 ANEURYSM OF 07-27-2014 [facility]PLENIC SERV [facility] 4928 OTHER 07-27-2014 [facility] EMPHYSEMA SERV [facility] 5533 DIAPHRAGMAT 07-27-2014 [facility] W/O SERV MENTION FOUNDATION OBSTRUCTION /GANGREN 25344 SOLITARY 07-27-2014 [facility] PULMONARY SERV NODULE FOUNDATION 56629 OTHER 04-21-2014 [facility] SELECTIVE ALTHEA IMMUNOGLOBU GILBERTO DEFICIENCIE S 2859 UNSPECIFIED 04-21-2014 [facility] ANEMIA [facility] INC 4739 UNSPECIFIED 04-21-2014 [facility] SINUSITIS [facility] INC 4770 ALLERGIC 04-21-2014 FER[facility] RHINITIS ALTHEA DUE TO POLLEN 4778 ALLERGIC 04-21-2014 [facility] RHINITIS ALTHEA DUE TO OTHER ALLERGEN 58416 OBSTRUCTIVE 04-21-2014 FER[facility]ÍN CHRONIC ALTHEA BRONCHITIS WITH EXACERBATIO N 4919 UNSPECIFIED 04-21-2014 [facility] CHRONIC [facility] BRONCHITIS INC 66344 CHRONIC 04-21-2014 [facility]STRUCTIVE [facility] ASTHMA INC UNSPECIFIED 57553 OTHER 04-21-2014 [facility] MALAISE AND [facility] FATIGUE INC V727 DIAGNOSTIC 04-21-2014 F[facility] SKIN AND ALTHEA SENSITIZATI ON TESTS 4660 ACUTE 03-11-2014 [facility] OLY BRONCHITIS 4659 ACUTE URIS 02-13-2014 [facility] OLY OF UNSPECIFIED SITE 3384 CHRONIC 12-20-2013 ARNSARY OLY PAIN SYNDROME 462 ACUTE 12-20-2013 [facility] OLY PHARYNGITIS 4779 ALLERGIC 10-24-2013 F[facility] RHINITIS ALTHEA CAUSE UNSPECIFIED 00362 CHRONIC 10-24-2013 [facility] OBSTRUCTIVE ALTHEA ASTHMA W/STATUS ASTHMATICUS 75277 ESOPHAGEAL 10-24-2013 F[facility]ÍN REFLUX ALTHEA 9390 FOREIGN 06-10-2013 [facility] [place] BL[facility] ADULT & PED URETHRA 5921 CALCULUS OF 05-21-2013 [facility] URETER CONSULTING SRV V7281 PRE-OPERATI 05-21-2013 [facility] ROSSI VE CARDIOVASCU CONSULTING LAR SRV EXAMINATION 591 HYDRONEPHRO 05-16-2013 [facility] [place] ADULT [facility]ED 7880 RENAL COLIC 05-05-2013 [facility] 2669 UNSPECIFIED 04-22-2013 [facility] VITAMIN B [facility] DEFICIENCY INC 2689 UNSPECIFIED 04-22-2013 [facility] VITAMIN D [facility] DEFICIENCY INC 13154 OBSTRUCTIVE 04-22-2013 [facility] CHRONIC [facility] BRONCHITIS INC WITHOUT EXACERBAT 4829 UNSPECIFIED 04-18-2013 FERMÍN BACTERIAL ALTHEA PNEUMONIA 4619 ACUTE 02-28-2013 [facility] ALDR[facility]GE SINUSITIS, UNSPECIFIED 60578 VARIANTS 12-01-2012 MEÑ[facility] ALDRIDGE MIGRAINE NEC INTRACT MIGRAINE W/[place] [address] PAIN IN 06-06-2012 ARTHRITIS JOINT, AND MULTIPLE OSTEOPOROSI SITES S C 7242 LUMBAGO 06-06-2012 ARTHRITIS AND OSTEOPOROSI S C 7291 UNSPECIFIED 06-06-2012 ARTHRITIS MYALGIA AND AND OSTEOPOROSI MYOSITIS S C 40384 UNSPECIFIED 06-01-2012 [facility] OSTEOPOROSI S V5876 AFTERCARE 06-01-2012 [facility] NEC 5930 NEPHROPTOSI 05-29-2012 [facility] ANESTHESIA GROUP PS V7283 OTHER 05-28-2012 [place] SPECIFIED COMMUNITY PRE-OPERATI HOSPITA VE EXAMINATION 2112 BENIGN 05-24-2012 [facility] NEOPLASM OF [facility] DUODENUM INC JEJUNUM AND ILEUM 30899 ACUT GASTR 05-24-2012 PATHOLOGY & ULCER W/O CYTOLOGY MENTION LAB HEMORR PERF/OBST 08211 UNS 05-24-2012 [facility] GASTRITIS&G [facility] ASTRODUODIT INC IS W/O MENTION HEMORR 60953 DYSPHAGIA 05-24-2012 [facility] UNSPECIFIED [facility] INC 53661 UNSPECIFIED 05-16-2012 JEANNETTE SORENSEN MD ARTHROPATHY PSC OTHER SPECIFIED SITES 4780 HYPERTROPHY 05-14-2012 F[facility]ÍN OF NASAL ALTHEA TURBINATES 50078 MIGRAINE 04-25-2012 [facility] W/O AURA NEUROLOGY INTRACT W/O CENTER [place] STATUS MIGRAINOSUS 28595 CHRONIC 04-25-2012 [facility] MIGRAINE NEUROLOGY W/O CENTER [facility] W/INTRACTAB LE W/O SM 7231 CERVICALGIA 04-25-2012 [facility] 486 PNEUMONIA, 01-11-2012 [facility] ORGANISM [facility] UNSPECIFIED INC 67868 CHRONIC 12-27-2011 JEANNETTE Tang FATIGUE FRANCHESCA AGEE SYNDROME PSC 7830 ANOREXIA 12-27-2011 JEANNETTE SORENSEN MD PSC V0481 NEED 12-21-2011 [facility] &INOCULATIO N FLU 5920 CALCULUS OF 12-14-2011 [facility] KIDNEY [facility] INC 97265 HEMATURIA 12-14-2011 [place] UNSPECIFIED [facility]ICAL IMAGING ASS 27590 COR 11-29-2011 [facility] ALDR[facility]GE ATHEROSLERO UNSPEC TYPE VESSEL TWENTY-NINE PALMS/LYNN T 68930 ABDOMINAL 11-17-2011 [facility] [place] PAIN, RADIOLOGY UNSPECIFIED SITE 5929 UNSPECIFIED 11-02-2011 MEÑO ALDRIDGE URINARY CALCULUS 87331 OTHER ACUTE 10-10-2011 [facility] 5990 URINARY 10-10-2011 [facility] INFECTION SERVICES SITE NOT SPECIFIED 81910 NAUSEA WITH 10-10-2011 [facility] VOMITING [facility]ANCE SERVICE 89534 ABDOMINAL 10-10-2011 [facility] PAIN, EMERGENCY EPIGASTRIC SERVICES 8408 SPRAIN&STRA 04-11-[address] [facility] [address] [facility] P SHOULDER&UP PER ARM 8409 SPRAIN&STRA 04-11-2011 [facility] IN UNSPEC EMERGENCY SITE SERVICES SHOULDER&UP PER ARM 63789 GENERALIZED 04-05-2011 JEANNETTE Tang PAIN FRANCHESCA AGEE PSC 72941 CLOSED 01-12-2011 [facility] FRACTURE OF [facility] LOWER END INC OF RADIUS WITH ULNA V5489 OTHER 01-12-2011 [place] [facility] IMAGING ASS 02511 CLOSED 12-22-2010 [facility] COLLES [facility] FRACTURE INC 54046 CONTUSION 11-19-2010 [facility] OF KNEE [facility] INC 9597 INJURY 11-19-2010 [place] OTHER&UNSPE MEDICAL CIFIED KNEE IMAGING ASS LEG ANKLE&FOOT 02527 PAIN IN 11-12-2010 [facility] JOINT, SHOULDER REGION 920 CONTUSION 11-12-2010 [place] OF [facility] SCALP AND IMAGING ASS NECK EXCEPT EYE 9248 CONTUSION 11-12-2010 [facility] OF MULTIPLE EMERGENCY SITES NEC SERVICES 2809 UNSPECIFIED 04-05-2010 [facility] IRON [facility] DEFICIENCY INC ANEMIA 1749 MALIGNANT 03-15-2010 [facility] NEOPLASM OF [facility] BREAST INC UNSPECIFIED SITE 7804 DIZZINESS 02-23-2010 JAZMINE C AND JOVANNY GIDDINESS 7802 SYNCOPE AND 02-17-2010 [facility] V7611 SCREENING 02-12-2010 [facility] MAMMOGRAM [facility] FOR INC HIGH-RISK PATIENT V7612 OTHER 02-12-2010 [place] SCREENING MEDICAL MAMMOGRAM IMAGING ASS 98549 ANEMIA IN 02-01-2010 [facility] CHRONIC [facility] KIDNEY INC DISEASE 2113 BENIGN 01-27-2010 PATHOLOGY & NEOPLASM OF CYTOLOGY COLON LAB 2114 BENIGN 01-27-2010 PATHOLOGY & NEOPLASM OF CYTOLOGY RECTUM AND LAB ANAL CANAL V7651 SPECIAL 01-27-2010 [place] [facility] FOR [facility] MALIGNANT NEOPLASMS COLON 18870 ATROPHIC 01-06-2010 PATHOLOGY & GASTRITIS CYTOLOGY WITHOUT LAB MENTION OF HEMORRHAGE 05737 OTHER SPEC 01-06-2010 [place] [facility] GASTRITIS SERV WITHOUT F[facility] MENTION HEMORRHAGE 5564 PSEUDOPOLYP 01-06-2010 PATHOLOGY & OSIS OF CYTOLOGY COLON LAB 2827 OTHER 12-30-2009 [facility] HEMOGLOBINO [facility] PATHIES INC 2768 HYPOPOTASSE 12-21-2009 [facility] JAIME [facility] INC 76937 ING CEDRICK 12-19-2008 SCHULSTAD, W/O MENTION LISA [...] 17 17 49 TA 5 84 PH VT AR N- MA CA CY FF OF 50 CY -3 NT 25 HI -4 AN 0 A IN C AR 59 09 10 10 5 00 EA Ac ED 74 -1 -[address] ti NI 60 5- 3- 00 00 SI ve SO 17 20 20 50 DE NE 50 17 17 17 6 02 PH 20 AR MA MG CY TA OF BL CY ET NT HI AN A IN C CY 51 09 10 60 30 00 EA Ac AR 99 -1 -[address] ti OH 10 9- 3- 00 SI ve EP 83 20 20 50 DE TA 80 17 17 21 DI 1 13 PH NE AR 4 MA CY MG OF TA CY BL NT ET HI AN A IN C AR 54 09 10 28 7 00 EA [...] 18 -3 -[address] ti AR 50 - 9 00 SI ve OL [...] ve C 06 20 20 49 DE AR 30 17 17 14 EN 1 34 [...] 17 17 49 TA 5 84 PH VT AR N- MA CA CY FF OF [...] 18 -0 -[address] ti AR 50 4- 1- 00 SI ve OL [...] ve C 06 20 20 49 DE AR 30 17 17 14 EN 1 34 [...] 17 17 49 TA 5 84 PH VT AR N- MA CA CY FF OF [...] 18 -1 -[address] ti AR 50 5- 4- 00 00 SI ve [...] ve C 06 20 20 49 DE AR 30 17 17 14 EN 1 34 [...] LE HI R AN A IN C AR 59 06 06 27 7 00 EA [...] 05 06 60 30 00 EA Ac AR 59 -2 -[address] ti OP 13 5- 3- 00 00 SI ve IO 54 20 20 48 DE N 36 17 17 58 HC 0 99 PH L AR SR MA CY 15 0 OF MG CY NT TA HI BL AN ET A IN C BU 00 05 60 30 00 EA Ac AR 59 -0 -[address] ti [...] ve C 06 20 20 48 DE AR 30 17 17 57 EN 1 01 [...] 17 17 57 E 5 15 PH AR AR OP MA CY 50 OF MC [...] 17 17 76 E 5 28 PH AR AR OP MA CY 50 OF MC [...] ve C 06 20 20 47 DE AR 30 17 17 69 EN 1 99 [...] 03 03 60 30 00 EA Ac AR 59 -0 -[address] ti [...] ve C 06 20 20 47 DE AR 30 17 17 69 EN 1 99 [...] 00 02 60 30 00 EA Ac AR 59 -3 -[address] ti [...] ve C 06 20 20 45 DE AR 30 17 17 36 EN 1 05 PH AT AR AL MA CY TA BL OF ET CY NT HI AN A IN C BU 00 12 01 60 30 00 EA Ac AR 59 -2 -[address] ti [...] 16 17 76 E 5 28 PH AR AR OP MA CY 50 OF MC [...] ve C 06 20 20 45 DE AR 30 16 17 36 EN 1 05 [...] Ml ti ve Sy ri ng e AR 00 02 0 No OM 64 -0 [...] 11 11 RI TA 8 PH CH VT AR AR N- MA D CA CY [...] 11 11 RI TA 8 PH CH VT AR AR N- MA D CA CY W FF OF 50 -3 CY 25 NT -4 HI 0 AN A NA 53 09 09 5 60 5 EA 23 AR Ac AR 74 -0 -[address] 93 NO [...] 0 10 5 EA 23 SO Ac AR 74 -1 -[address] 72 KA [...] 11 11 RI TA 8 PH CH VT AR AR N- MA D CA CY [...] 11 11 SHRUTHI TA 8 PH E VT AR A N- MA CA CY FF [...] 10 10 SHRUTHI TA 8 PH E VT AR A N- MA CA CY FF [...] 10 10 SHRUTHI TA 8 PH E VT AR A N- MA CA CY FF [...] -1 -[address] 58 SC ti AR 90 8- 8- 0 SI 45 H [...] 10 10 SHRUTHI TA 8 PH E VT AR A N- MA CA CY FF [...] 10 10 SHRUTHI TA 8 PH E VT AR A N- MA CA CY FF OF 50 -3 CY 25 NT -4 HI 0 AN A BU 00 07 07 0 36 6 EA 18 NI Ac TA 60 -1 -[address] 32 CH ti LB 32 3- 3- 00 SI 75 OL ve -A 54 20 20 DE S CE 42 10 10 SHRUTHI TA 8 PH E VT AR A N- MA CA CY FF OF 50 -3 CY 25 NT -4 HI 0 AN A BU 00 03 03 0 36 6 EA 16 NI Ac TA 59 -0 -[address] 59 CH ti LB 13 2- 2- 00 SI 46 OL ve -A 36 20 20 DE S CE 90 10 10 SHRUTHI TA 5 PH E VT AR A N- MA CA CY FF [...] 10 10 SHRUTHI TA 5 PH E VT AR A N- MA CA CY FF OF 50 CY -3 NT 25 HI -4 AN 0 A BU 00 01 01 00 36 7 EA 15 NI Ac TA 59 -0 -[address] 90 CH ti LB 13 9- 8- 00 SI 22 OL ve -A 36 20 20 DE S CE 90 10 10 SHRUTHI TA 5 PH E VT AR A N- MA CA CY FF OF 50 CY -3 NT 25 HI -4 AN 0 A BU 00 12 12 00 36 7 EA 15 NI Ac TA 59 -1 -[address] 57 CH ti LB 13 4- 1- 00 SI 60 OL ve -A 36 20 20 DE S CE 90 09 09 SHRUTHI TA 5 PH E VT AR A N- MA CA CY FF [...] 09 09 SHRUTHI TA 1 PH E [place] AR A N- MA CA CY FF [...] 09 09 SHRUTHI TA 1 PH E VT AR A N- MA CA CY FF [...] Procedure DOS Code Location Performer Comment INTERROGA 90193 [facility] TION 7 PHYSICIAN EVALUATIO S GROUP N IN PERSON ILR SYSTEM URINE 03717 [facility] TEST INC INC VISUAL COLOR CMPRSN METHS CATH PLMT 98264 [facility] L HRT & 7 [facility] ARTS INC INC W/NJX & ANGIO IMG S&I BASIC 61442 [facility] METABOLIC 7 [facility] PANEL INC INC CALCIUM TOTAL MOD SED 57127 [facility] SAME 7 [facility] PHYS/QHP INC INC INITIAL 15 MINS <5 YRS BLOOD 03527 [facility] COUNT 7 [facility] COMPLETE INC INC AUTO&AUTO DIFRNTL WBC SPECIAL 91803 [facility] STAIN 7 DERMATOLO GROUP 1 GY MICROOR[place] NISMS I&[place] [address] [facility] SURG 7 DERMATOLO PATHOLOGY GY GROSS&MANJIT ROSCOPIC EXAM DIAGNOSTI 14256 [facility] C 7 [facility] MAMMO[facility]AP INC INC HY COMPUTER- AIDED DETCJ BI US BREAST 94333 [facility] UNI REAL 7 [facility] TIME INC INC WITH IMAGE COMPLETE US BREAST 37342 [place] UNI REAL 7 MEDICAL TIME IMAGING WITH ASS IMAGE LIMITED DIAGNOSTI G0204 [place] C 7 MEDICAL MAMMOGRAP IMAGING HY INCL ASS CAD WHEN PERF; BILAT FRAMES V2020 [facility]ASH PURCHASES 7 BIFOCL V2207 HABASH HABASH +/-4.25-+ 7 /-7.00D SPHER 0.12-2.00 D CYL-EA FITTING 37582 JOSE [facility]ABVITA SPECTACLE 7 S XCPT APHAKIA BIFOCAL BIFOCL V2208 HABASH HABASH +/-4.25-+ 7 /-7.00D SPHER 2.12-4.00 D CYL-EA O2 CONC 1 E1390 [facility] 7 HOME HOME 85%/>02 MEDICAL MEDICAL CONC AT EQUIPME EQUIPME [facility] FLW RATE IMPLANTAT 28513 [facility] ION 7 PHYSICIAN PT-ACTIVA S GROUP SREE CARDIAC EVENT RECORDER ENDOMETRI 95540 [facility] AL BX 7 PHYSICIAN W/WO S GROUP ENDOCERVI X BX W/O DILAT SPX EVENT C1764 [facility] RECORDER 7 [facility] CARDIAC INC INC HOSPITAL G0463 [facility] OUTPATIEN 7 [facility] T CLIN INC INC VISIT ASSESS & MGMT PT CT THORAX [address] [facility] 7 MEDICAL W/CONTRAS IMAGING T ASS MATERIAL FINAL RPT G[address] [facility] [address]/MRI 7 MEDICAL CHEST/NCK IMAGING /U/S NO ASS THR NOD<[address] [place] [address] [facility] ABDOMEN 7 MEDICAL W/CONTRAS IMAGING T ASS MATERIAL FINAL G9638 [facility] REPORTS 7 MEDICAL W/O DOC IMAGING 1/[place] [address] [facility] ANGIOGRAP 7 [facility] HY CHEST INC INC W/CONTRAS T/NONCONT RAST FINAL G9551 [facility] REPR ABD 7 MEDICAL IMAG STS IMAGING W/O ASS INCIDNT FND LES NTD: [place] [address] [facility] ANGIOGRAP 7 [facility] HY INC INC ABDOMEN W/CONTRAS [place] [address] [facility] RETROPERI 7 [facility] TONEAL INC INC REAL TIME W/[place] [address] [facility] RETROPERI 7 MEDICAL TONEAL IMAGING REAL TIME ASS W/IMAGE LIMITED INFO [id number] [facility] 7 MEDICAL ANALYSIS IMAGING ABNORMAL ASS INTERPRAT E SCREENING G0202 [facility] 7 MEDICAL MAMMOGRAP IMAGING HY [place]ERR[place] [address] [facility] TRANSVAGI 7 MEDICAL NAL IMAGING ASS SCREENING 53294 LANDEN SCHUSTER [facility] MAMMOGRAP INC INC HY BI 2-VIEW BREAST INC CAD MAMMO 3340F [facility] ASSESSMEN 7 MEDICAL T CAT IMAGING IN[place] [address] LANDEN SCHUSTER UREA 7 [facility] NITROGEN INC INC QUANTITAT JADON COLLECTIO 78135 LANDEN SCHUSTER N VENOUS 7 [facility] BLOOD INC INC VENIPUNCT URE CREATININ 80008 LANDEN SCHUSTER E BLOOD 7 [facility] INC INC CULTURE 17779 [facility] CHLAMYDIA 7 PHYSICIAN ANY S GROUP SOURCE CYTP C/V 35778 BIO BIO AUTO THIN 7 REFERNCE REFERNCE LYR LABORATOR LABORATOR PREPJ SCR IES IES MNL RESCR PHYS IADNA 50133 [facility] NEISSERIA 7 PHYSICIAN S GROUP GONORRHOE AE DIRECT PROBE TQ IADNA 95511 BIO BIO NEISSERIA 7 REFERNCE 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 GONORRHOE IES IES AE AMPLIFIED PROBE TQ IADNA NOS 77344 BIO BIO 7 REFERNCE REFERNCE AMPLIFIED LABORATOR LABORATOR PROBE TQ IES IES EACH ORGANISM BLOOD 72205 [facility] OCCULT 7 PHYSICIAN PHYSICIAN PEROXIDAS S GROUP S GROUP E ACTV QUAL FECES 1-3 SPEC IADNA 63349 BIO BIO TRICHOMON 7 REFERNCE 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 VAGINALIS IES IES AMPLIFIED PROBE TECH IADNA 65880 BIO BIO CHLAMYDIA 7 REFERNCE 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 TRACHOMAT IES IES IS AMPLIFIED PROBE TQ ECG 52615 [facility] ROUTINE 7 PHYSICIAN ECG S GROUP W/LEAST 12 LDS I&R ONLY ECG 47565 LANDEN SCHUSTER ROUTINE 7 [facility] ECG INC INC W/LEAST 12 LDS TRCG ONLY W/O I&R O2 CONC 1 E1390 [facility] [place] PORT 7 HOME HOME 85%/>02 MEDICAL MEDICAL CONC AT EQUIPME EQUIPCT PRS FLW RATE DRUG TEST 58909 LANDEN SCHUSTER PRSMV 7 [facility] QUAL DIR INC INC OPTICAL OBS PER DAY NEBULIZER E0570 [facility] NEW WITH 7 HOME HOME COMPRESSO MEDICAL MEDICAL R EQUIPME EQUIPCT ADMN SET A7005 YOUR YOUR W/SM VOL 7 PHARMACY PHARMAC[facility] NEBULIZR NON-DISPB L ECG 75468 LANDEN SCHUSTER ROUTINE 7 [facility] ECG INC INC W/LEAST 12 LDS TRCG ONLY W/O I&R O2 CONC 1 E1390 [facility] SHAQ DEL PORT 7 HOME HOME 85%/>02 MEDICAL MED[address] CONC AT [facility] PRSC FLW RATE BASIC 87000 LANDEN SCHUSTER METABOLIC 7 [facility] PANEL INC INC CALCIUM TOTAL CATHETER C1725 LANDEN SCHUSTER TRANSLUMI 7 [facility] NAL INC INC ANGIOPLAS TY NON-LASER GUIDE C1769 LANDEN SCHUSTER WIRE 7 [facility] INC INC STENT C1876 LANDEN SCHUSTER NON-COATE 7 [facility] D/NON-COV INC INC ERED W/DELIVER Y SYSTEM COAGULATI 92859 LANDEN SCHUSTER ON TIME 7 [facility] ACTIVATED INC INC PRQ 10897 LANDEN SCHUSTER TRLUML 7 [facility] CORONARY INC INC STENT W/ANGIO ONE ART/BRNCH COLLECTIO 26419 LANDEN SCHUSTER N VENOUS 7 [facility] BLOOD INC INC VENIPUNCT [facility] [address] [facility] 7 PHYSICIAN DAY S GROUP MANAGEMEN T 30 MIN/< HOSPITAL G0378 LANDEN SCHUSTER OBSERVATI 7 [facility] ON INC INC SERVICE PER HOUR BLOOD 95768 LANDEN SCHUSTER COUNT 7 [facility] COMPLETE INC INC AUTO&AUTO DIFRNTL WBC CLOSURE C1760 LANDEN SCHUSTER DEVICE 7 [facility] VASCULAR INC INC INTRDUCR/ C1894 LANDEN SCHUSTER SHEATH 7 [facility] NOT GUID INC INC INTRACARD EP NON-LASR LIPID 48107 LANDEN SCHUSTER PANEL 7 [facility] INC INC INITIAL 46103 [facility] 7 PHYSICIAN CARE/DAY S GROUP 50 MINUTES HOSPITAL G0378 LANDEN SCHUSTER OBSERVATI 7 [facility] ON INC INC SERVICE PER HOUR GUIDE C1769 LANDEN SCHUSTER WIRE 7 [facility] INC INC CATHETER C1725 LANDEN SCHUSTER TRANSLUMI 7 [facility] NAL INC INC ANGIOPLAS TY NON-LASER CATH PLMT 79670 LANDEN SCHUSTER L HRT & 7 [facility] ARTS INC INC W/NJX & ANGIO IMG S&I URINE 66602 LANDEN SCHUSTER 7 [facility] TEST INC INC VISUAL COLOR CMPRSN METHS RADIOLOGI 81184 LANDEN SCHUSTER C 7 [facility] EXAMINATI INC INC ON CHEST SINGLE VIEW FRONTAL AMB A0427 Ó[facility] SERVICE 7 AMBULANCE AMBULANCE ALS SERVICE SERVICE EMERGENCY TRANSPORT LEVEL 1 CRITICAL 98261 [facility] CARE 7 PHYSICIAN ILL/INJUR S, PLLC ED PATIENT INIT 30-74 MIN COMPREHEN 20344 LANDEN SCHUSTER SIVE 7 [facility] METABOLIC INC INC PANEL THERAPEUT 58805 LANDEN SCHUSTER IC 7 [facility] INJECTION INC INC IV PUSH EACH NEW DRUG ECG 54138 LANDEN SCHUSTER ROUTINE 7 [facility] ECG INC INC W/LEAST 12 LDS TRCG ONLY W/O I&R GROUND A0425 [facility] MILEAGE 7 AMBULANCE AMBULANCE PER SERVICE SERVICE STATUTE MILE BLOOD 05781 LANDEN SCHUSTER COUNT 7 [facility] COMPLETE INC INC AUTO&[place] [address] LANDEN SCHUSTER TROPONIN 7 [facility] QUANTITAT INC INC JADON ECG 33747 [facility] 7 PHYSICIAN ECG S, PLLC W/LEAST 12 LDS I&[place] [address] LANDEN SCHUSTER INFUSION 7 [facility] THERAPY/P INC INC ROPHYLAXI S /DX 1ST TO 1 HR PRESSURIZ 47253 LANDEN SCHUSTER ED/NONPRE 7 [facility] SSURIZED INC INC INHALATIO N TREATMENT IAADIADOO 60666 [facility] GROUP A O2 CONC 1 E1390 [facility] 7 HOME HOME 85%/>02 MEDICAL MEDICAL CONC AT EQUIPME EQUIPME PRS FLW RATE O2 CONC 1 E1390 SHAQ [facility] 7 HOME HOME 85%/>02 MEDICAL MEDICAL CONC AT EQUIPME EQUIPME [facility] FLW RATE O2 CONC 1 E1390 [facility] 7 HOME HOME 85%/>02 MEDICAL MEDICAL CONC AT EQUIPME EQUIPME [facility] FLW RATE O2 CONC 1 E1390 [facility] [place] PORT 7 HOME HOME 85%/>02 MEDICAL MEDICAL CONC AT EQUIPME EQUIPME [facility] FLW RATE CT THORAX 40613 [facility] W/O 7 MEDICAL CONTRAST IMAGING MATERIAL ASS FINAL RPT G95[address] [facility]/MRI 7 MEDICAL CHEST/NCK IMAGING /U/S NO ASS THR NOD<1.0 CM FINAL G9638 [facility] REPORTS 7 MEDICAL W/O DOC IMAGING 1/MORE ASS DOSE REDUCTION TECH O2 CONC 1 E1390 [facility] [place] 6 HOME HOME 85%/>02 MEDICAL MEDICAL CONC AT EQUIPME EQUIPME [facility] FLW RATE O2 CONC 1 E1390 [facility] [place] PORT 6 HOME HOME 85%/>02 MEDICAL MEDICAL CONC AT EQUIPME EQUIPME [facility] FLW RATE PLETHYSMO 23722 SAMIA JANE GRAPHY 6 MEDICAL LUNG SERV VOLUMES FOUNDAT[facility] W/WO N AIRWAY RESIST PULMONARY 37974 [place] STRESS 6 [place] [address] [place] DIFFUSING 6 MEDICAL CAPACITY SERV [facility]OUNDAT[facility] N SPMTRY 80633 [place] W/VC 6 MEDICAL EXPIRATOR SERV Y ANA MARIA FOUNDATIO W/WO MXML N VOL VNTJ IIV4 VACC 73428 [facility] 6 DISTRICT DISTRICT VIRUS 0.5 HLTH DEPT HLTH DEPT ML [place] [address] LANDEN SCHUSTER THYROID 6 [facility] STIMULATI INC INC NG HORMONE TSH ANTINUCLE 39002 LANDEN SCHUSTER AR 6 [facility] ANTIBODIE INC INC S CARLOS BLOOD 53283 LANDEN SCHUSTER COUNT 6 [facility] COMPLETE INC INC AUTO&AUTO DIFRNTL WBC ALPHA-1-A 16402 LANDEN SCHUSTER NTITRYPSI 6 [facility] N INC INC PHENOTYPE COMPREHEN 08764 LANDEN SCHUSTER SIVE 6 [facility] METABOLIC INC INC PANEL ANTIBODY 68016 LANDEN SCHUSTER IDENTIFIC 6 [facility] ATION INC INC LEUKOCYTE ANTIBODIE S COLLECTIO 45825 LANDEN SCHUSTER N VENOUS 6 [facility] BLOOD INC INC VENIPUNCT URE O2 CONC 1 E1390 [facility] [place] 6 HOME HOME 85%/>02 MEDICAL MEDICAL CONC AT EQUIPME EQUIPME PRSC FLW RATE O2 CONC 1 E1390 [facility] ENW DEL PORT 6 HOME HOME 85%/>02 MEDICAL MEDICAL CONC AT EQUIPME EQUIPME PRSC FLW RATE O2 CONC 1 E1390 [facility] [place] 6 HOME HOME 85%/>02 MEDICAL MEDICAL CONC AT EQUIPME EQUIPME PRSC FLW RATE ADMN SET A7005 YOUR YOUR W/SM VOL 6 PHARMACY PHARMACY [facility] NEBULIZR NON-DISPB L O2 CONC 1 [...] YOUR W/SM VOL 5 PHARMACY PHARMACY [facility] NEBULIZR NON-DISPB L CUSHN A7032 [...] RENT; EQUIPME EQUIPME FLWMTR HUMIDFR&M ASK ECG 27453 [facility] ROUTINE 5 [facility] [place] ECG MEDICAL W/LEAST G 12 LDS I&R ONLY RADIOLOGI 40885 MONTERROSO MONTERROSO C 5 JOSS JOSS EXAMINATI ON CHEST SINGLE VIEW FRONTAL O2 CONC 1 E1390 [facility] [place] PORT 5 HOME HOME 85%/>02 MEDICAL MEDICAL CONC AT EQUIPME EQUIPME PRSC FLW RATE RADIOLOGI 41899 [facility] [place] KOSTELIC C 5 RADIOLOGY [place] EXAMINATI ON CHEST SINGLE VIEW FRONTAL ECG 14569 [facility] DEMETRIO ROUTINE 5 ECG W/LEAST 12 LDS I&[place] [address] [facility] [place] ANGIOGRAP 5 RADIOLOGY [place] HY CHEST W/CONTRAS T/[place] [address] [facility] [place] ANGIOGRAP 5 RADIOLOGY GUTIERREZ HY CHEST W/CONTRAS T/NONCONT RAST INITIAL 26514 [facility] 5 [facility]/DAY MEDICAL [address] ANGIO 50569 [facility] [place] ABD&PLVIS 5 RADIOLOGY GUTIERREZ CNTRST MTRL W/WO [facility]TRST IMG RADIOLOGI 97208 [facility] [place] SIMEON C 5 RADIOLOGY ISHMAEL EXAMINATI ON CHEST SINGLE VIEW FRONTAL DOPPLER [address] ECHOCARD 5 A PULSE ASSOCIATE WAVE S PSC W/SPECTRA L DISPLAY RADIOLOGI 58791 [facility] [place] SIME[place] C 5 RADIOLOGY ISHMAEL EXAMINATI ON CHEST SINGLE VIEW FRONTAL ECHO [address] TRANSESOP 5 A HAG R-T ASSOCIATE 2D W/PRB S PSC IMG ACQUISJ I&R DOP [address] ECHOCARD 5 A COLOR ASSOCIATE FLOW S PSC VELOCITY MAPPING ANES HRT [address] PERICRD 5 A SAC&GRT ASSOCIATE VSLS S PSC W/SPINNING FRAME CLEANER OXTJ >1MO PO SPCL STN 64463 KAHLIL PICHARDO 2 I&R 5 [facility] EXCPT CLINIC MICROORG/ PSC ENZYME/[place] [address] KAHLIL PICHARDO SURG 5 [facility] PATHOLOGY CLINIC PSC GROSS&MANJIT ROSCOPIC EXAM INITIAL 06149 EM IV EM IV INPATIENT 5 OLY OLY CONSULT NEW/ESTAB PT 55 MIN ASCENDING 24238 EM IV EM IV AORTA 5 OLY OLY GRF W/CARD BYP & [place] [address] [place] AYOOB AND ANGIOGRAP 5 MEDICAL HY CHEST SERV W/CONTRAS FOUNDATIO T/NONCONT N RAST CT ANGIO 87769 [place] AYOOB AND ABD&PLVIS 5 MEDICAL CNTRST [...] AT EQUIPME EQUIPME PRSC FLW RATE NITRIC 86260 FERMÍN FERMÍN OXIDE 5 ALTHEA [place] GAS DETERMINA TION GAMMAGLOB 32553 LANDEN SCHUSTER ULIN 5 [facility] IMMUNOGLO [place] [address] LANDEN SCHUSTER THYROID 5 [facility] STIMULATI [place] [address] LANDEN SCHUSTER FREE 5 [facility] THYROXINE INC INC CUL BACT 02983 LANDEN SCHUSTER XCPT 5 [facility] URINE INC INC BLOOD/STO OL AEROBIC ISOL 25 90226 LANDEN SCHUSTER HYDROXY 5 [facility] INCLUDES INC INC FRACTIONS IF PERFORMED HEMAGGLUT 79059 LANDEN SCHUSTER INATION 5 [facility] INHIBITIO INC INC N TEST ERICKA CULTURE 05580 LANDEN SCHUSTER FNGI 5 [facility] MOLD/YEAS INC INC T PRSMPTV OTH XCPT BLOOD HEADGEAR A7035 [facility] NEW USED 5 HOME HOME W/POSITIV MEDICAL MEDICAL E AIRWAY EQUIPME EQUIPME PRESSURE DEVICE COLLECTIO 35306 LANDEN SCHUSTER N VENOUS 5 [facility] BLOOD INC INC VENIPUNCT URE CYANOCOBA 72064 LANDEN SCHUSTER JOSE RAFAEL 5 [facility] VITAMIN INC INC B-12 [place] [address] LANDEN SCHUSTER GAMMAGLOB 5 [facility] ULIN IGE INC INC C-REACTIV 09890 LANDEN SCHUSTER E PROTEIN 5 [facility] INC INC ANTIBODY 49174 LANDEN SCHUSTER DIPHTHERI 5 [facility] A INC INC ANTIBODY 83075 LANDEN SCHUSTER TETANUS 5 [facility] INC INC ADMN SET A7005 YOUR YOUR W/SM VOL 5 PHARMACY [facility] NE[facility]UL[facility] NON-DISPB L FULL FACE A7030 SH[facility] NEW MASK 5 HOME HOME USED MEDICAL MEDICAL W/POS EQUIPME EQUIPME ARWAY PRESS DEVICE EA COMPREHEN 26195 LANDEN SCHUSTER SIVE 5 [facility] METABOLIC INC INC PANEL SEDIMENTA 79819 LANDEN SCHUSTER TION RATE 5 [facility] RBC INC INC NON-AUTOM ATED PERCUTANE 35230 FERMÍN FERMÍN OUS TESTS 5 ALTHEA ALTHEA W/ALLERGE PHYLICIA EXTRACTS PRESSURIZ 69676 FERMÍN FERMÍN ED/NONPRE 5 ALTHEA [place] SSURIZED INHALATIO N TREATMENT BRNCDILAT 26754 FERMÍN FERMÍN RSPSE 5 ALTHEA ALTHEA SPMTRY PRE&POST- BRNCDILAT ADMN BLOOD 05232 LANDEN SCHUSTER COUNT 5 [facility] COMPLETE INC INC AUTO&AUTO DIFRNTL WBC RADIOLOGI 62868 LANDEN SCHUSTER C EXAM 5 [facility] CHEST 2 INC INC VIEWS FRONTAL&L ATERAL TUBING A7037 SHAQ NEW USED WITH 5 HOME HOME POSITIVE MEDICAL MEDICAL AIRWAY EQUIPME EQUIPME PRESSURE DEVICE SMR PRIM 92703 LANDEN SCHUSTER SRC 5 [facility] GRAM/GIEM INC INC SA STAIN BCT FUNGI/ELPIDIO L COMPLEMEN 05438 LANDEN SCHUSTER T TOTAL 5 [facility] HEMOLYTIC INC INC ANTIBODY 72132 LANDEN SCHUSTER BACTERIUM 5 [facility] NOT INC INC ELSEWHERE SPECIFIED ANTIBODY 68261 LANDEN SCHUSTER RUBELLA 5 [facility] MEM [...] AT EQUIPME EQUIPME PRSC FLW RATE BRNCDILAT 92961 FERMÍN FERMÍN RSPSE 4 [place] SPMTRY PRE&POST- BRNCDILAT ADMN PRESSURIZ 58565 FERMÍN FERMÍN ED/NONPRE 4 [place]THEA [place] SSURIZED [...] AT EQUIPME EQUIPME PRSC FLW RATE CYSTO 48759 [facility]PLE [facility] LIZZY REMOVAL ADULT & STONE & PED STENT ECG 04833 PEDRO RICHEY RICHEY PEDRO ROUTINE 4 MD ECG CONSULTIN W/LEAST G SRV 12 LDS I&R ONLY O2 CONC 1 E1390 [facility] SHAQ DEL PORT 4 HOME HOME 85%/>02 MEDICAL MEDICAL CONC AT EQUIPME EQUIPME PRS FLW RATE ANES 48717 [place] MARISEL CHAVEZ TRURL 4 ANESTHESI FRAGMNTJ A GROUP MANJ&/RMV PS L URETERAL CALCULUS CYSTO 01661 [facility] W/INSERT 4 [facility] LIZZY URETERAL ADULT & STENT PED CYSTO 36918 [facility] W/URETERO 4 [facility] LIZZY SCOPY ADULT & W/LITHOTR PED IPSY DILATION 38575 [facility] NEPHROSTO 4 [place] LIZZY MY/URETER ADULT & /URETHRA PED RS&I COMPREHEN 85237 LANDEN SCHUSTER SIVE 4 [facility] METABOLIC INC INC PANEL C-REACTIV 01569 LANDEN SCHUSTER E PROTEIN 4 [facility] INC INC 25 66583 LANDEN SCHUSTER HYDROXY 4 [facility] INCLUDES INC INC FRACTIONS IF PERFORMED CYANOCOBA 72392 LANDEN SCHUSTER JOSE RAFAEL 4 [facility] VITAMIN INC INC B-12 RADIOLOGI 32005 LANDEN SCHUSTER C EXAM 4 [facility] CHEST 2 INC INC VIEWS FRONTAL&L ATERAL ANTIBODY 49048 LANDEN SCHUSTER BACTERIUM 4 [facility] NOT INC INC ELSEWHERE SPECIFIED BLOOD 98534 LANDEN SCHUSTER COUNT 4 [facility] COMPLETE INC INC AUTO&AUTO DIFRNTL WBC SEDIMENTA 33071 LANDEN SCHUSTER TIFRANCA RATE 4 [facility] RBC INC INC NON-AUTOM ATED GAMMAGLOB 31652 LANDEN SCHUSTER ULIN 4 [facility] IMMUNOGLO [place] [address] LANDEN SCHUSTER GAMMAGLOB 4 [facility] [place] [address] LANDEN SCHUSTER FREE 4 [facility] [place] [address] LANDEN SCHUSTER THYROID 4 [facility] STIMULATI INC INC NG HORMONE TSH PRESSURIZ 24747 FERMÍN FERMÍN ED/NONPRE 4 [place] SSURIZED INHALATIO N TREATMENT BRNCDILAT 94242 FERMÍN FERMÍN RSPSE 4 [place] SPMTRY PRE&POST- BRNCDILAT ADMN O2 CONC 1 E1390 [facility] NEW GABRIELA PORT 4 HOME HOME 85%/>02 MEDICAL MEDICAL CONC AT EQUIPME EQUIPME PRSC FLW RATE O2 CONC 1 E1390 [facility] ORDONEZRELL DEL PORT 3 HOME HOME 85%/>02 MEDICAL MEDICAL CONC AT EQUIPME EQUIPME PRSC FLW RATE O2 CONC 1 E1390 SHAQ ORDONEZRELL [facility] PORT 3 HOME HOME 85%/>02 MEDICAL [...] YOUR YOUR W/SM VOL 3 PHARMACY PHARMACY [facility] NEBULIZR NON-DISPB L BRNCDILAT 59097 FERMÍN KOVACS RSPSE 3 [place]THEA [place] SPMTRY PRE&POST- BRNCDILAT ADMN PRESSURIZ 84518 FERMÍN KOVACS ED/NONPRE 3 ALTHEA ALTHEA SSURIZED [...] EQUIPME EQUIPME PRSC FLW RATE INJECTION J1580 [facility] 3 N N GARAMYCIN [facility] HOSPITA HOSPITA GENTAMICI N UP TO 80 MG INJECTION J2370 [facility] 3 N N PHENYLEPH [facility] RINE HCL HOSPITA HOSPITA UP TO 1 ML INJECTION J1100 [facility] 3 N N DEXAMETHO [facility] SONE HOSPITA HOSPITA SODIUM PHOSPHATE 1 MG INJECTION J2001 [facility] 3 N N LIDOCAINE [facility] HCL HOSPITA HOSPITA INTRAVENO US INFUS 10 MG INJECTION J2405 [facility] 3 N N ONDANSETR [facility] ON HCL HOSPITA HOSPITA PER 1 MG INJECTION J2710 [facility] 3 N N NEOSTIGMI [facility] NE HOSPITA HOSPITA METHYLSUL FATE UP TO 0.5 MG INJECTION J3010 [facility] FENTANYL 3 N N CITRATE [facility] 0.1 MG HOSPITA HOSPITA PYELOPLAS 46730 [facility] TY SIMPLE 3 N N [facility] HOSPITA HOSPITA LAPAROSCO 66531 [facility] PY 3 [place] LIZZY RADICAL ADULT & NEPHRECTO PED MY CUSHN A7032 SHAQ SHAQ NASAL 3 HOME HOME MASK MEDICAL MEDICAL INTERFACE EQUIPME EQUIPME REPLACEME NT ONLY EACH ANES 82650 [place] [address]AD XTRPRTL 3 ANESTHESI AN LOWER ABD A GROUP UR TRACT PS RENAL DON NFRCT COLLECTIO 48827 [facility] N VENOUS 3 N N BLOOD [facility] VENIPUNCT HOSPITA HOSPITA URE ECG 66397 [facility] ROUTINE 3 N N ECG [facility] W/LEAST HOSPITA HOSPITA 12 LDS TRCG ONLY W/O I&R COMPREHEN 37255 [facility] SIVE 3 N N METABOLIC [facility] PANEL HOSPITA HOSPITA URNLS DIP 94672 [facility] 3 N N STICK/TAB [facility] LET HOSPITA HOSPITA REAGENT AUTO MICROSCOP Y BLOOD 54962 [facility] COUNT 3 N N COMPLETE [facility] AUTO&AUT[place] [address] LANDEN SCHUSTER INFUSION 3 [facility] THERAPY/P INC INC ROPHYLAXI S /DX 1ST TO 1 HR EGD 67369 LANDEN SCHUSTER TRANSORAL 3 [facility] BIOPSY INC INC [place]ING[place] [address] PATHOLOGY CRISTINA SURG 3 & OLY PATHOLOGY CYTOLOGY LAB GROSS&MANJIT ROSCOPIC EXAM SPECIAL 60965 PATHOLOGY CRISTINA STAIN 3 & OLY GROUP 1 CYTOLOGY MICROORGA LAB [facility] I&R ANES 00385 [facility] UPPER GI 3 ANESTH ENDOSCOPY [place] [address] LANDEN SCHUSTER INFUSION 3 [facility] THERAPY INC INC PROPHYLAX IS/DX EA HOUR URINE 32770 LANDEN SCHUSTER 3 [facility] TEST INC INC VISUAL COLOR CMPRSN METHS O2 CONC 1 E1390 [facility] ORDONEZRELL DEL PORT 3 HOME HOME 85%/>02 MEDICAL MEDICAL CONC AT EQUIPME EQUIPME PRSC FLW RATE DSTR 78665 ERICA VASCELLO NROLYTC 3 VASCELLO ALONDRA MCGILL MD PSC PARVERTEB FCT SNGL CRVCL/THO RA MODERATE 16806 ERICA VASCELLO SEDATJ 3 VASCELLO ALONDRA SOULEYMANE AGEE PSC PHYS/QHP 5/>YRS INIT 30 MIN DSTR 31719 ERICA VASCELLO NROLYTC 3 VASCELLO ALONDRA MCGILL MD PSC PARVERTEB FCT ADDL CRVCL/THO RA SPMTRY 39979 FERMÍN FERMÍN W/VC 3 ALTHEA ALTHEA EXPIRATOR Y ANA MARIA W/WO MXML VOL VNTJ CHEMODERV 53150 [facility] ATE 3 NEUROLOGY RAFAEL FACIAL/TR CENTER IGEM/CERV BRIANNA MUSC MIGRAINE BOTULINUM J0585 [facility] TOXIN 3 NEUROLOGY RAFA[facility] TYPE A CENTER PER UNIT BRIANNA O2 CONC 1 E1390 [facility] ORDONEZRELL DEL PORT 3 HOME HOME 85%/>02 MEDICAL MEDICAL CONC AT EQUIPME EQUIPME PRSC FLW RATE MODERATE 18135 ERICA VASCELLO SEDATJ 3 VASCELLO ALONDRA SAME PSC PHYS/QHP 5/>YRS INIT 30 MIN NJX 61872 ERICA VASCELLO DX/THER 3 VASCELLO ALONDRA AGT PVRT PSC FACET JT CRV/THRC 2ND LEVEL NJX 41689 ERICA VASCELLO DX/THER 3 VASCELLO ALONDRA AGT PVRT PSC FACET JT CRV/THRC 1 LEVEL O2 CONC 1 E1390 [facility] NEW DEL PORT 2 HOME HOME 85%/>02 MEDICAL MEDICAL CONC AT EQUIPME EQUIPME [facility] FLW RATE O2 CONC 1 E1390 [facility] NEW DEL PORT 2 HOME HOME 85%/>02 MEDICAL MEDICAL CONC AT EQUIPME EQUIPME [facility] FLW RATE HEADGEAR A7035 [facility] NEW USED 2 HOME HOME W/POSITIV MEDICAL MEDICAL E AIRWAY EQUIPME EQUIPME PRESSURE DEVICE ELECTRICA A4595 J & L J & L L 2 HOME HOME STIMULATO MEDICAL MEDICAL R EQUIPMENT EQUIPMENT SUPPLIES 2 LEAD PER MONTH FULL FACE A7030 [facility] NEW MASK 2 HOME HOME USED MEDICAL MEDICAL W/POS EQUIPME EQUIPME ARWAY PRESS DEVICE EA PRESSURIZ 88650 FERMÍN FERMÍN ED/NONPRE 2 ALTHEA OH SSURIZED INHALATIO N TREATMENT BRNCDILAT 21766 FERMÍN FERMÍN RSPSE 2 ALTHEA ALTHEA SPMTRY PRE&POST- BRNCDILAT ADMN BOTULINUM J0585 MUSLIM JONEL TOXIN 2 NEUROLOGY [facility] TYPE A CENTER PER UNIT BRIANNA O2 CONC 1 E1390 [facility] NEW DEL PORT 2 HOME HOME 85%/>02 MEDICAL MEDICAL CONC AT EQUIPME EQUIPME [facility] FLW RATE SEDIMENTA 32642 [facility] QUEST TION RATE 2 DIAGNOSTI DIAGNOSTI RBC CS AUTOMATED CYCLIC 11214 [facility] CITRULLIN 2 DIAGNOSTI DIAGNOSTI ATED [facility] PEPTIDE ANTIBODY C-REACTIV 40284 [facility] E PROTEIN 2 DIAGNOSTI DIAGNOSTI CS IMMUNOASS 35530 [facility] AY 2 DIAGNOSTI DIAGNOSTI ANALYTE [facility] QUANTITAT JADON NOS COLLECTIO 36255 [facility] N VENOUS 2 DIAGNOSTI DIAGNOSTI BLOOD [facility] VENIPUNCT URE CREATINE 49147 [facility] KINASE 2 DIAGNOSTI DIAGNOSTI TOTAL CS 25 87416 LANDEN SCHUSTER HYDROXY 2 [facility] INCLUDES [place] [address] L[facility] SCHUSTER GAMMAGLOB 2 [facility] ULIN IGE INC INC BLOOD 90552 [facility] COUNT 2 [facility] COMPLETE INC INC AUTO&AUTO DIFRNTL WBC RADIOLOGI 54343 LAND[facility] SCHUSTER C EXAM 2 [facility] CHEST 2 INC INC VIEWS FRONTAL&[place] [address] LANDEN SCHUSTER GAMMAGLOB 2 [facility] ULIN IGA [place] [address] LANDEN SCHUSTER THYROID 2 [facility] STIMULATI INC INC NG HORMONE TSH GAMMAGLOB 44372 LANDEN SCHUSTER ULIN 2 [facility] IMMUNOGLO INC INC BULIN SUBCLASSE S DEMO&/GABI 19227 FERMÍN FERMÍN L OF PT 2 ALTHEA OH UTILIZ AERSL GEN/NEB/I NHLR/IP PRESSURIZ 32217 FERMÍN FERMÍN ED/NONPRE 2 ALTHEA ALTHEA SSURIZED INHALATIO N TREATMENT BRNCDILAT 90696 FERMÍN FERMÍN RSPSE 2 ALTHEA ALTHEA SPMTRY PRE&POST- BRNCDILAT ADMN ADMN SET A7005 [place] [employer] ([employer]) MED W/SM VOL 2 EQUIPMENT EQUIPMENT NONFILTR INC INC NEBULIZR NON-DISPB L NEBULIZER E0570 [place] [employer] ([employer]) MED WITH 2 EQUIPMENT EQUIPMENT COMPRESSO INC INC R FLUOROSCO 77524 ERICA VASCELLO PIC 2 VASCELLO ALONDRA GUIDANCE MD [employer] NEEDLE PLACEMENT ADD ON INJECTION 49777 ERICA VASCELLO 2 VASCELLO ALONDRA SINGLE/ML MD SCHWARTZ T TRIGGER POINT 3/> MUSCLES IIV3 99497 LANDEN SCHUSTER VACCINE 2 [facility] VIRUS 0.5 ML DOSAGE IM USE CREATININ 14814 LANDEN SCHUSTER E BLOOD 2 [place] [address] LANDEN SCHUSTER UREA 2 [facility] N[facility]ROGEN [facility] INC QUANTITAT JADON UROGRAPHY 72930 [facility] [place]ANNY IV W/WO 2 MEDICAL BELINDA KUB W/WO IMAGING TOMOGRAPH ASS Y CYSTO 63158 CENTRAL SMITH W/SIMPLE 2 [facility] LIZZY REMOVAL ADULT & STONE & PED STENT CONTINUOU E0601 [facility] ORDONEZRELL S 2 HOME HOME POSITIVE MEDICAL MEDICAL AIRWAY EQUIPME EQUIPME PRESSURE DEVICE DILATION 87385 CENTRAL SMITH NEPHROSTO 2 [facility] [place] [place] MY/URETER ADULT & /URETHRA PED RS&I LEVEL III 68062 PATHOLOGY SALAZAR VAN SURG 2 & PATHOLOGY CYTOLOGY LAB GROSS&MANJIT ROSCOPIC EXAM CYSTO 38844 CEN[facility]AL SMITH W/URETERO 2 [facility] BALL SCOPY ADULT & W/RMVL/MA PED [place] STONES CYSTO 36028 CENTRAL SMITH W/INSERT 2 [facility] LIZZY URETERAL ADULT & STENT PED ANES 33179 [facility] TRURL 2 ANESTHESI AN FRAGMNTJ A GROUP MANJ&/RMV PS L URETERAL CALCULUS CYSTO 91518 CENTR[facility] SMITH W/INSERT 2 [facility] LIZZY URETERAL ADULT & STENT PED ECG 46659 PEDRO RICHEY RICHEY PEDRO ROUTINE 2 MD ECG CONSULTIN W/LEAST G SERV 12 LDS I&R ONLY RADEX 62134 [facility] [place] SCALF OLY ABDOMEN 1 2 RADIOLOGY ANTEROPOS TERIOR VIEW ANES 24869 [facility] [place] LEONNE MEDHAT LITHOTRP 2 ANESTHESI XTRCORP A GROUP SHOCK PS WAVE W/O WATER BATH FLUOROSCO 22789 CENTRAL SMITH PY SPX UP 2 [facility] LIZZY TO 1 ADULT & HOUR PED PHYS/QHP TIME LITHOTRIP 20584 C[facility] SMITH SY 2 [facility] LIZZY XTRCORP ADULT & SHOCK PED WAVE URINE 28819 L[facility]EN MCKEONON 2 [facility] TEST INC INC VISUAL COLOR CMPRSN METHS BLOOD 06752 LANDEN SCHUSTER COUNT 2 [facility] COMPLETE INC INC AUTO&AUTO DIFRNTL WBC URNLS DIP 31323 L[facility]EN SCHUSTER 2 [facility] STICK/TAB INC INC LET REAGENT AUTO MICROSCOP Y CONTINUOU E0601 SHAQ NEW S 2 HOME HOME POSITIVE MEDICAL MEDICAL AIRWAY [place] [address] LANDEN MCKEONON AMYLASE 2 [facility] INC INC COMPREHEN 73354 LANDEN SCHUSTER SIVE 2 [facility] [address] LANDEN SCHUSTER LIPASE 2 [place] [address] LANDEN SCHUSTER ABDOMEN & 2 [facility] PELVIS INC INC W/O CONTRAST MATERIAL URNLS DIP 95454 LANDEN SCHUSTER 2 [facility] STICK/TAB INC INC LET REAGENT AUTO MICROSCOP Y SUSCEPTIB 28648 LANDEN LANDEN LTY STDY 2 [facility] ANTIMICRB INC INC IAL MICRO/AGA R DILUTJ GROUND A0425 ÓSCAR CANTRELL MILEAGE 2 AMBULANCE AMBULANCE PER SERVICE SERVICE STATUTE MILE BLOOD 20901 LANDEN MCKEONON COUNT 2 [facility] COMPLETE INC INC AUTO&AUTO DIFRNTL WBC THERAPEUT 65924 LANDEN SCHUSTER IC 2 [facility] INJECTION INC INC IV PUSH EACH NEW DRUG URINE 98404 LANDEN SCHUSTER 2 [facility] TEST INC INC VISUAL COLOR CMPRSN METHS CULTURE 79461 LANDEN SCHUSTER BACTERIAL 2 [facility] INC INC QUANTTATI VE COLONY COUNT URINE CULTURE 48181 LANDEN SCHUSTER BCT 2 [facility] ISOL&PRSM INC INC PTV ID ISOLATE EA URINE 3D 51226 LANDEN SCHUSTER RENDERING 2 [facility] INC INC W/INTERP& POSTPROC DIFF WORK STATION AMB A0427 ÓSCAR [facility] SERVICE 2 AMBULANCE AMBULANCE ALS SERVICE SERVICE EMERGENCY TRANSPORT LEVEL 1 THER 06986 LANDEN SCHUSTER PROPH/DX 2 [facility] MEM [...] MEDICAL AIRWAY EQUIPME EQUIPME PRESSURE DEVICE DSTR 95958 ERICA ERICA NROLYTC 2 VASCELLO VASCELLO AGNT [facility] PARVERTEB FCT ADDL CRVCL/THO RA DSTR 14611 ERICA ERICA NROLYTC 2 VASCELLO VASCELLO AGNT [facility] PARVERTEB FCT SNGL CRVCL/THO RA CONTINUOU E0601 SHAQ NEW S 2 HOME HOME POSITIVE MEDICAL MEDICAL AIRWAY EQUIPME EQUIPME PRESSURE DEVICE NJX 54518 ERICA ERICA DX/THER 2 VASCELLO VASCELLO AGT PVRT [facility] PSC FACET JT CRV/THRC 1 LEVEL NJX 88734 ERICA ERICA DX/THER 2 VASCELLO VASCELLO AGT PVRT [facility] PSC FACET JT CRV/THRC 2ND LEVEL CONTINUOU E0601 SHAQ NEW S 2 HOME HOME POSITIVE MEDICAL MEDICAL AIRWAY EQUIPME EQUIPME PRESSURE DEVICE NJX 14846 ERICA ERICA DX/THER 2 VASCELLO VASCELLO AGT PVRT [facility] PSC FACET JT CRV/THRC 1 LEVEL NJX 22052 ERICA ERICA DX/THER 2 VASCELLO VASCELLO AGT PVRT [facility] PSC FACET JT CRV/THRC 2ND LEVEL [facility] A7032 SHAQ NEW NASAL 2 HOME HOME MASK MEDICAL MEDICAL INTERFACE EQUIPME EQUIPME REPLACEME NT ONLY EACH DSTR 23892 ERICA ERICA NROLYTC 2 VASCELLO VASCELLO NANO AGEE [facility] FCT ADDL LMBR/SACR AL DSTR 96647 ERICA ERICA NROLYTC 2 VASCELLO VASCELLO NANO SCHWARTZ MD [facility] PAR[facility]TEB FCT SNGL LMBR/SACR AL MODERATE 13996 ERICA ERICA SEDATJ 2 VASCELLO VASCELLO SOULEYMANE AGEE [facility] PHYS/QHP 5/>YRS INIT 30 MIN CONTINUOU E0601 SHAQ NEW S 2 HOME HOME POSITIVE MEDICAL MEDICAL AIRWAY EQUIPME EQUIPME PRESSURE DEVICE DSTR 84880 ERICA ERICA NROLYTC 2 VASCELLO VASCELLO NANO SCHWARTZ MD [facility] PAR[facility] FCT ADDL LMBR/SACR AL DSTR 62298 ERICA ERICA NROLYTC 2 VASCELLO VASCELLO NANO AGEE [facility] FCT SNGL LMBR/SACR AL BASIC 54549 LANDEN SCHUSTER METABOLIC 2 [facility] PANEL INC INC CALCIUM TOTAL RADIOLOGI 13081 [facility] C 2 MEDICAL MEDICAL EXAMINATI IMAGING IMAGING ON CHEST [place] [address] LANDEN SCHUSTER TROPONIN 2 [facility] QUANTITAT INC INC JADON ECG 28927 GRISELDA RECIO LIZZETH ROUTINE 2 EMERGENCY ECG SERVICES W/LEAST 12 LDS I&R ONLY BLOOD 05548 LANDEN SCHUSTER COUNT 2 [facility] COMPLETE INC INC AUTO&AUTO DIFRNTL WBC CREATINE 16837 LANDEN SCHUSTER KINASE MB 2 [facility] FRACTION INC INC ONLY CREATINE 59965 LANDEN MCKEONON KINASE 2 [facility] TOTAL INC INC NJX 69859 ERICA ERICA DX/THER 2 VASCELLO VASCELLO AGT PVRSue AGEE [facility] PSC FACET JT LMBR/SAC 3+ LEVEL NJX 39547 ERICA ERICA DX/THER 2 VASCELLO VASCELLO AGT PVRT MD EFREN AGEE PSC FACET JT LMBR/SAC 1 LEVEL NJX 08411 ERICA ERICA DX/THER 2 VASCELLO VASCELLO AGT PVRT MD EFREN AGEE PSC FACET JT LMBR/SAC 2ND LEVEL CONTINUOU E0601 SHQA SHAQ S 2 HOME HOME POSITIVE MEDICAL [...] W/POS EQUIPME EQUIPME ARWAY PRESSURE DEVICE POLYSOM 19298 LANDEN SCHUSTER 6/>YRS 1 [facility] SLEEP 4/> INC INC ADDL SHWETHA ATTND IIV3 72361 LANDEN SCHUSTER VACCINE 1 [facility] VIRUS 0.5 ML DOSAGE IM USE WRIST L3908 SHAQ NEW HAND 1 HOME HOME ORTHOSIS MEDICAL MEDICAL EXT EQUIPME EQUIPME CONTROL COCK-UP PREFAB RADEX 07443 LANDEN SCHUSTER WRIST 1 [facility] COMPLETE INC INC MINIMUM 3 VIEWS RADEX 70382 LANDEN SCHUSTER WRIST 1 [facility] COMPLETE INC INC MINIMUM 3 VIEWS RADIOLOGI 59435 LANDEN SCHUSTER C 1 [facility] EXAMINATI INC INC ON KNEE 1/2 VIEWS RADIOLOGI 69584 LANDEN SCHUSTER C 1 [facility] EXAMINATI INC INC ON KNEE 3 VIEWS 3D 84368 ALNDEN SCHUSTER RENDERING 1 [facility] INC INC W/INTERP& POSTPROC DIFF WORK STATION RADEX 97784 [facility] JOVANNY WRIST 1 MEDICAL BELINDA COMPLETE IMAGING MINIMUM 3 [place] [address] [facility] 1 PHYSICIAN JAM RADIAL&UL S GROUP JOCE SHAFT FRACTURES W/O MAN RADEX 72147 LANDEN SCHUSTER WRIST 2 1 [facility] VIEWS INC INC SLINGS A4565 KEVIN L.P. KEVIN L.P. 1 CLTX DSTL 54101 GRISELDA KELLY RADIAL 1 EMERGENCY FX/EPIPHY SERVICES SL SEP W/[place] [address] LANDEN LANDEN MAXILLOFA 1 [facility] CIAL W/[place] [address] LANDEN SCHUSTER INFUSION 1 [facility] THERAPY/P INC INC ROPHYLAXI S /DX 1ST TO 1 [place] [address] LANDEN SCHUSTER INFUSION 1 [facility] THER INC INC PROPH ADDL SEQUENTIA L TO 1 HR BLOOD 13674 LANDEN SCHUSTER COUNT 0 [facility] COMPLETE INC INC AUTO&AUTO DIFRNTL WBC MRI BRAIN 71309 JAZMINE C JOVANNY BRAIN 0 JOVANNY BELINDA STEM W/O CONTRAST MATERIAL ANTINUCLE 29119 LANDEN SCHUSTER AR 0 [facility] ANTIBODIE INC INC S CARLOS RHEUMATOI 92865 LANDEN SCHUSTER D FACTOR 0 [facility] QUANTITAT INC INC JADON C-REACTIV 57154 LANDEN SCHUSTER E PROTEIN 0 [facility] INC INC PROTEIN 24373 LANDEN SCHUSTER ELECTROPH 0 [facility] ORETIC INC INC FRACTJ&QU ANTJ SERUM CREATINE 45638 LANDEN SCHUSTER KINASE 0 [facility] TOTAL INC INC SCREENING G0202 [place] JOVANNY 0 MEDICAL BELINDA MAMMOGRAP IMAGING HY JERRY ASS INCL CAD WHEN PERFORMD COMPUTER- 96399 CHRISTIE VALENTINECHER AIDED 0 MEDICAL BELINDA DETECTION IMAGING ASS SCREENING MAMMOGRAP HY BLOOD 46955 LANDEN SCHUSTER COUNT 0 [facility] COMPLETE INC INC AUTO&AUTO DIFRNTL WBC IRON 07398 LANDEN SCHUSTER BINDING 0 [facility] CAPACITY INC INC POTASSIUM 69496 LANDEN SCHUSTER URINE 0 [place] [address] LANDEN SCHUSTER MAGNESIUM 0 [place] [address] LANDEN SCHUSTER FERRITIN 0 [place] [address] LANDEN SCHUSTER IRON 0 [facility] INC INC BASIC 08661 LANDEN SCHUSTER METABOLIC 0 [facility] PANEL INC INC CALCIUM TOTAL URINE 87799 LANDEN SCHUSTER 0 [facility] TEST INC [place] [address] LANDEN SCHUSTER INFUSION 0 [facility] THERAPY INC INC PROPHYLAX IS/DX EA HOUR ENDOSCOPI 4542 LANDEN MCKEONON C 0 [facility] POLYPECTO INC INC MY OF LARGE INTESTINE [ENDOSCOP 4836 LANDEN SCHUSTER IC] 0 [facility] [place]YPECT[place] [address] PATHOLOGY PATHOLOGY SURG 0 & & PATHOLOGY CYTOLOGY CYTOLOGY LAB LAB GROSS&MANJIT ROSCOPIC EXAM COLSC FLX 84297 [place] KELI ANT W/RMVL 0 MEDICAL OF TUMOR [place] [address] LANDEN SCHUSTER INFUSION 0 [facility] THERAPY/P INC INC ROPHYLAXI S /DX 1ST TO 1 HR IIV3 91172 LANDEN SCHUSTER VACCINE 0 [facility] VIRUS 0.5 ML DOSAGE IM USE BLOOD 39452 LANDEN SCHUSTER COUNT 0 [facility] COMPLETE INC INC AUTO&AUTO DIFRNTL WBC GONADOTRO 63763 LANDEN SCHUSTER PIN 0 [facility] [address] LANDEN LANDEN INFUSION 0 [facility] THERAPY/P INC INC ROPHYLAXI S /DX 1ST TO 1 HR EGD 31572 [place] KELI ANT TRANSORAL 0 MEDICAL BIOPSY SERV SINGLE/[place] [address] PATHOLOGY PATHOLOGY SURG 0 & & PATHOLOGY CYTOLOGY CYTOLOGY LAB LAB GROSS&MANJIT ROSCOPIC EXAM SPECIAL 24526 PATHOLOGY PATHOLOGY STAIN 0 & & GROUP 1 CYTOLOGY CYTOLOGY MICROORGA LAB LAB [facility] I&R ESOPHAGOG 4516 LANDEN SCHUSTER ASTRODUOD 0 [facility] [place] [address] LANDEN SCHUSTER INFUSION 0 [facility] THERAPY INC INC PROPHYLAX IS/DX EA HOUR BLOOD 81189 LANDEN SCHUSTER COUNT 0 [facility] COMPLETE INC INC AUTO&AUTO DIFRNTL WBC BLOOD 49542 LANDEN SCHUSTER COUNT 0 [facility] COMPLETE INC INC AUTO&AUTO DIFRNTL WBC POTASSIUM 64530 LANDEN SCHUSTER SERUM 0 [facility] PLASMA/[place] B[place] [address] [place] JOVANNY UPR W/WO 0 MEDICAL BELINDA GLUCOSE IMAGING W/SM ASS INTEST FOLLW-THR U RADEX 71061 LANDEN SCHUSTER UPPER GI 0 [facility] W/WO INC INC GLUCAGON/ DELAY IMAGES W/KUB BLOOD 10424 LANDEN SCHUSTER OCCULT 0 [facility] PEROXIDAS INC INC E ACTV QUAL FECES 1-3 SPEC BLOOD 99816 LANDEN SCHUSTER COUNT 0 [facility] COMPLETE INC INC AUTO&[place] [address] LANDEN SCHUSTER FOLIC 0 [facility] ACID INC INC SERUM POTASSIUM 17653 LANDEN SCHUSTER SERUM 0 [facility] PLASMA/WH INC INC OLE BLOOD CYANOCOBA 74090 LANDEN SCHUSTER JOSE RAFAEL 0 [facility] VITAMIN INC INC B-12 [place] [address] LANDEN SCHUSTER THYROID 0 [facility] [place] [address] LANDEN SCHUSTER INFUSION 9 [facility] THERAPY INC INC PROPHYLAX IS/DX EA HOUR OTH & OPN 5304 LANDENFRANCA SCHUSTER REP 9 [facility] INDIRECT INC INC ING HERNIA W/GRAFT/[place] [address] LANDEN SCHUSTER INFUSION 9 [facility] THERAPY/P INC INC ROPHYLAXI S /DX 1ST TO 1 HR RPR 1ST 52823 LANDEN LANDEN INGUN 9 [facility] HRNA AGE INC INC 5 YRS/> INCARCERA SREE ANESTHESI 43269 COMMUNITY MARINO, A HERNIA 9 ANESTH HAZEL A REPAIR OF THE [place] ABDOMEN NOS THERAPEUT 85369 LANDEN SCHUSTER IC 9 [facility] INJECTION INC INC IV PUSH EACH NEW DRUG GONADOTRO 52873 LANDEN SCHUSTER PIN 9 [facility] CHORIONIC INC INC QUALITATI VE BLOOD 78454 LANDEN SCHUSTER COUNT 9 [facility] COMPLETE INC INC AUTO&AUTO DIFRNTL WBC BASIC 49493 LANDEN SCHUSTER METABOLIC 9 [facility] PANEL INC INC CALCIUM TOTAL Encounters Encounter Start End Date Code Location Performer Type Date OFFICE 70294 [facility] OUT[facility] 7 7 PHYSICIAN T VISIT S GROUP 15 MINUTES [facility] - 7 7 [facility] L[facility] - 7 7 [facility] OUTPAT[facility] INC T OFFICE 64036 [facility] OUTPATIEN 7 7 T NEW 45 MINUTES OFFICE 40509 [facility] PHYSICIAN T VISIT S GROUP 25 MINUTES OFFICE 37321 L[facility]EN OUTPATIEN 7 7 [facility] T VISIT 5 INC MINUTES [facility] - 7 7 [facility] INC T OFFICE 32715 [facility] OUTPATIEN 7 7 PHYSICIAN T NEW 20 S GROUP MINUTES [facility]OS[facility] - 7 7 [facility]PATI[facility] INC T [facility] - 7 7 [facility] OUTPATIEN INC T [facility] - 7 7 [facility] OUTPATIEN INC T [facility] - 7 7 [facility] OUTPATIEN INC T INITIAL 61549 [facility] PREVENTIV 7 7 PHYSICIAN E S GROUP MEDICINE NEW PATIENT 40-64YRS HOSPITAL [facility] - 7 7 [facility] OUTPATIEN INC T OFFICE 14033 [facility] OUTPATIEN 7 7 PHYSICIAN T VISIT S GROUP 40 MINUTES [facility]OSPITAL [facility] - 7 7 [facility]PAT[facility] INC T [facility] - 7 7 [facility]PAT[facility] INC T [facility] - 7 7 [facility] - 7 7 [facility] OUTPATI[facility] INC T EMERGENCY 08550 [facility] 7 7 [facility]IT [facility]IGH/URGE NT SEVERITY OFFICE 28467 [facility] 7 FAMILY T NEW 30 CARE MINUTES CENTER OFF[facility] 69061 [facility] 7 T [facility]ISIT 15 MINUTES [facility] - 7 7 [facility] OUTPATIEN INC T OFFICE 32180 [facility] OUTPATIEN 6 6 NURSE CK BING T VISIT PRACTITIO 40 NER GR MINUTES HOSPITAL UNIVERSIT - 6 6 [facility] T OFFICE 85802 [facility] CONSULTAT 6 6 NURSE CK BING ION PRACTITIO NEW/ESTAB NER GR PATIENT 60 MIN [facility]OSPITAL [facility] - 6 6 [facility] OUTPATIEN INC T OFFICE 90742 [facility] ME[facility] 6 6 OLY OLY T VISIT 15 MINUTES EMERGENCY 74723 MONTERROSO MONTERROSO DEPT 5 5 JOSS JOSS VISIT HIGH SEVERITY& THREAT FUN EMERGENCY 32012 [facility] ATKINSON DEPT 5 5 VISIT HIGH SEVERITY& THREAT FUNJ OFFICE 67323 FERMÍN KOVACS OUTPATIEN 5 5 ALTHEA ALTHEA T VISIT 40 MINUTES HOSPITAL [facility] - 5 5 [facility] OUTPATIEN INC T OFFICE 19826 MEÑO BAILEY 4 4 OLY OLY T VISIT 15 MINUTES OFFICE 78881 MEÑO BAILEY 4 4 OLY OLY T VISIT 15 MINUTES OFFICE 27683 MEÑO BAILEY 4 4 OLY OLY T VISIT 15 MINUTES OFFICE 86971 MEÑO BAILEY 4 4 OLY OLY T VISIT 15 MINUTES OFFICE 35043 FERMÍN KOVACS OUTPATIEN 4 4 ALTHEA ALTHEA T VISIT 40 MINUTES OFFICE 74916 [facility] CONSULTAT 4 4 [place] LIZZY ION ADULT & NEW/ESTAB PED PATIENT 40 MIN Emergency TUAN Quintero MD (ER) 4 21:38 4 23:12 [facility] EMERGENCY 44973 GRISELDA QUINTERO DEPT 4 4 EMERGENCY MAJNIT VISIT SERVICES HIGH SEVERITY& THREAT [facility] LANDEN - 4 4 [facility] OUTPATIEN INC T OFFICE 08558 FERMÍN KOVACS OUTPATIEN 4 4 ALTHEA ALTHEA T VISIT 40 MINUTES OFFICE 78763 MEÑO BAILEY 3 3 OLY OLY T VISIT 15 MINUTES OFFICE 30778 MEÑO BAILEY 3 3 OLY OLY T VISIT 15 MINUTES OFFICE 45161 FERMÍN FERMÍN OUTPATIEN 3 3 ALTHEA ALTHEA T VISIT 40 MINUTES OFFICE 85198 ARTHRITIS MD ARTEMIO OUTPATIEN 3 3 AND DAVE T VISIT OSTEOPORO 15 SIS C MINUTES HOME 90162 [facility] VISIT EST 3 3 HOME PT HEALTH MOD-HI SEVERITY 40 MINUTES HOME 01803 [facility] VISIT EST 3 3 HOME PT HEALTH MOD-HI SEVERITY 40 MINUTES HOME [facility], 3 3 HOME OUTPATIEN HEALTH T HOME 58562 [facility] VISIT EST 3 3 HOME PT HEALTH MOD-HI SEVERITY 40 MINUTES HOME 65932 [facility] VISIT EST 3 3 HOME PT HEALTH MOD-HI SEVERITY 40 MINUTES [facility] OFF[facility] 11342 [facility] JUDIE OUTPATIEN 3 3 PHYSICIAN ALIREZA GUILLORY 30 S GROUP MINUTES OFFICE 68327 FERMÍN FERMÍN OUTPATIEN 3 3 ALTHEA OH T VISIT 25 MINUTES OFFICE 46165 ZACARIAS REMY OUTFARNAZ 3 3 NEUROLOGY RAFAEL T VISIT CENTER 25 BRIANNA MINUTES OFFICE 71022 FERMÍN FERMÍN OUTPATIEN 2 2 ALTHEA OH T VISIT 25 MINUTES OFFICE 35682 ARTHRITIS MD ARTEMIO CONSULTAT 2 2 AND MAN ION OSTEOPORO NEW/ESTAB SIS C PATIENT 60 MIN [facility] - 2 2 [facility] OUTPATIEN INC T OFFICE 94142 FERMÍN FERMÍN OUTPATIEN 2 2 ALTHEA Rogers NEW 60 MINUTES OFFICE 31151 ERICA VASCELLO OUTPATIEN 2 2 VASCELLO ALONDRA T VISIT PSC 25 MINUTES [facility]OSPITAL [facility] - 2 2 [facility] OFF[facility] 69586 ZACARIAS REMY OUTPATIEN 2 2 HEALTH RAFAEL T VISIT MEDICAL 25 GROUP MINUTES OFFICE 10209 MEÑO JEFFRIESEN 2 2 OLY OLY T VISIT 25 MINUTES OFFICE 42451 [facility] CONSULTAT 2 2 [place] LIZZY ION ADULT & NEW/ESTAB PED PATIENT 40 MIN [facility] - 2 2 [facility] T OFFICE 82386 MEÑO WILDER OUTMAUEN 2 2 OLY OLY T VISIT 15 MINUTES EMERGENCY 54559 GRISELDA QUINTERO DEPT 2 2 EMERGENCY EMERSON VISIT SERVICES HIGH SEVERITY& THREAT FUN EMERGENCY 77280 [facility] 2 2 [facility]PARTMEN [facility] T VISIT HIGH/URGE NT SEVERITY [facility] - 2 2 [facility] T EMERGENCY 50928 [facility] 2 2 [facility] DEPARTMEN INC T VISIT HIGH/URGE NT SEVERITY [facility] - 2 2 [facility] T EMERGENCY 43806 GRISELDA MOREAU DEPT 2 2 EMERGENCY VISIT SERVICES HIGH SEVERITY& THREAT [facility] - 1 1 [facility] T OFFICE 42099 MEÑO BAILEY 1 1 OLY OLY T VISIT 15 MINUTES HOSPITAL [facility] - 1 1 [facility] - 1 1 [facility] OUTPATIEN INC T OFFICE 26096 ZACARIAS REMY OUTPATIEN 1 1 NEUROLOGY RAFAEL T VISIT CENTER 25 BRIANNA MINUTES [facility]OSP[facility] - 1 1 [facility] EMERGENCY 81278 GRISELDA PASTRANAMei KELLY 1 1 EMERGENCY DEPARTMEN SERVICES T VISIT HIGH/URGE NT SEVERITY [facility] - 1 1 [facility] EMERGENCY 51396 [facility] 1 1 [facility] DEPARTMEN [facility] T VISIT LOW/MODER SEVERITY OFFICE 56846 MEÑO WILDER OUTPATIEN 1 1 OLY OLY EMORY [facility] 30 MINUTES [facility]EN - 1 1 [facility] - 0 0 [facility] OFFICE 57718 SAMIA ARREDONDO OUTPATIEN 0 0 MEDICAL T VISIT SERV 25 FOUNDATIO MINUTES [facility]EN - 0 0 [facility]PATIEN [facility]EN - 0 0 [facility]PATIEN [facility] - 0 0 [facility] - 0 0 [facility]PATIEN [facility] - 0 0 [facility] - 0 0 [facility] - 0 0 [facility] - 0 0 [facility] - 0 0 [facility] OFFICE 20713 ZACARIAS REMY CONSULTAT 0 0 NEUROLOGY [facility] NEW/ESTAB BRIANNA PATIENT 80 MIN [facility] - 0 0 [facility] OFFICE 84170 CARRERA DEANDRE BAILEY 0 0 SHARMAINE SHARMAINE T VISIT 15 MINUTES OFFICE 81319 DEANDRE CARRERA OUTPATIEN 0 0 SHARMAINE A SHARMAINE A T VISIT 15 MINUTES [facility]OSPITAL [facility] - 9 9 [facility] - 9 9 [facility] T OFFICE 87762 JUDIE DIMAS CONSULTAT 9 9 , LISA GONZALEZ ION NEW/ESTAB PATIENT 60 MIN OFFICE [id number] DEANDRE CARRERA OUTPATIEN 9 9 SHARMAINE A SHARMAINE A T VISIT 15 MINUTES OFFICE [id number] DEANDRE CARRERA OUTPATIEN 9 9 SHAR[place] A SHARMAINE A T VISIT 15 MINUTES OFFICE [id number] DEANDRE CARRERA OUTPATIEN 9 9 [place] A SHARMAINE A T VISIT 15 MINUTES
--- OUTSIDE RECORDS SUMMARY | 2017-01-16 16:44 | External Medical Summary Rpt | CCD ---
Author Author , MYRIAM MIGUEL Address Unknown Phone [email or web address] Care Team Providers Care Wood Scaler Name Role Phone TERESO PHYLICIA, TERESO PHYLICIA [...] C AYOOB AND, AYOOB AND Unavailable Unavailable [facility] Unavailable Unavailable [facility], [facility] Unavailable Unavailable LABORATORIES, [facility] Unavailable Unavailable LABORATORIES, [facility] Unavailable Unavailable CENTER, [facility], PLAZA Unavailable Unavailable KELI ANT, KELI ANT Unavailable Unavailable [facility] Unavailable Unavailable SERVICE, [facility] Unavailable Unavailable SERVICE, [facility] EDISON DEMETRIO, EDISON DEMETRIO Unavailable Unavailable EDISON DEMETRIO, EDISON DEMETRIO Unavailable Unavailable SMITH LIZZY, Unavailable Unavailable SMITH LIZZY MERARY, MERARY Unavailable Unavailable [facility] Unavailable Unavailable ADULT & PED, [facility], Unavailable Unavailable [facility] RICHEY PEDRO, RICHEY PEDRO Unavailable Unavailable JOVANNY BELINDA, Unavailable Unavailable JOVANNY BELINDA BUCK, BUCK Unavailable Unavailable JAZMINE C JOVANNY, Unavailable Unavailable JAZMINE C JOVANNY [facility] [place] [facility]available [place]available [place], [facility] Unavailable Unavailable [facility] Unavailable Unavailable JONEL RAFAEL, Unavailable Unavailable JONEL RAFAEL [facility], Unavailable Unavailable [facility] EM IV OLY, EM Unavailable Unavailable IV OLY FRYMAN, FRYMAN Unavailable Unavailable SHIREEN, SHIREEN Unavailable Unavailable SHIREEN MANJIT, SHIREEN Unavailable Unavailable MANJIT [facility] Unavailable Unavailable HOSPITA, [facility] ALEX WAY, ALEX WAY Unavailable Unavailable RECIO LIZZETH, RECIO LIZZETH Unavailable Unavailable HABASH, HABASH Unavailable Unavailable HABASH, HABASH Unavailable Unavailable HARPEL, HARPEL Unavailable Unavailable SIMEON ISHMAEL, SIMEON Unavailable Unavailable ISHMAEL [facility] Unavailable Unavailable WILLIS WHARF, [facility] Unavailable Unavailable CENTER, [facility] Unavailable Unavailable INC, [facility] Unavailable Unavailable HOSPITAL P, [facility], [facility]available Unavailable [facility] Unavailable Unavailable EQUIPMENT, [facility] Un[facility] Unavailable GROUP PS, [facility] Unavailable Unavailable [facility], [facility] Unavailable Unavailable MEDICAL G, [facility] KMS NURSE Unavailable Unavailable PRACTITIONER GR, KMS NURSE PRACTITIONER GR EMI POSEY, Unavailable Unavailable MARIE MAYORGA Unavailable Unavailable [facility] Un[facility], [facility] LESTER JR, LESTER JR Unavailable Unavailable CRISTINA OLY, CRISTINA Unavailable Unavailable OLY JEANNETTE SORENSEN MD Unavailable Unavailable [facility], JEANNETTE SORENSEN MD [facility] JOINER CHAVEZ, JOINER CHAVEZ Unavailable Unavailable [facility] Unavailable Unavailable SERVICES, [facility] FERMÍN ALTHEA, Unavailable Unavailable FERMÍN ALTHEA FERMÍN ALTHEA, Unavailable Unavailable FERMÍN ALTHEA [facility], Unavailable Unavailable [facility] Unavailable Unavailable [facility], [facility] CARRERA JOE, CARRERA Unavailable Unavailable SHARMAINE CARRERA, SHARMAINE A, Unavailable Unavailable SHARMAINE CARRERA MD Unavailable Unavailable CONSULTING SRVPEDRO MD CON[facility], Unavailable Unavailable PLL[facility], [facility] Unavailable Unavailable LAB, [...] Unavailable EQUIPME, [facility] MARINO HENRI, MARINO Unavailable Unavailable HENRI HAZEL PICHARDO, Unavailable Unavailable HAZEL PICHARDO VASCELLO ALONDRA, Unavailable Unavailable VASCELLO ALONDRA [facility] Unavailable Unavailable [address], [facility] NAEL POSEY, NAEL Unavailable Unavailable [facility] Unavailable Unavailable DEPT [facility], [facility] DEPT SINDHU [facility] Unavailable Unavailable DEPT [facility], [facility] DEPT SINDHU MONTERROSO JOSS, MONTERROSO Unavailable Unavailable JOSS MONTERROSO JSOS, MONTERROSO Unavailable Unavailable JOSS WILP, WILP Unavailable Unavailable [facility], Unavailable [facility], Unavailable Unavailable [facility] Purpose Continuity of Care Document - 07-26-2008 through 2016 Problems Code Diagnosis DOS Provider Status R55 SYNCOPE AND 12-13-2016 [facility] COLLAPSE PHYSICIANS GROUP N63 UNSPECIFIED 12-05-2016 [facility] LUMP IN PHYSICIANS BREAST GROUP [id number] ASHD CHINIK 11-30-2016 [facility] W/UNS INC ANGINA PECTORIS J449 CHRONIC 11-30-2016 [facility]STRUCTIVE [facility] PULMONARY INC DISEASE UNS Z720 TOBACCO USE 11-30-2016 [facility] INC Z955 PRESENCE OF 11-30-2016 [facility] CORONARY [facility] ANGIOPLASTY INC IMPLANT & GRAFT M53286 NON-PRSS 11-25-2016 [facility] DERMATOLOGY SKIN OTH SITE LTD BRKDWN SKN N6001 SOLITARY 11-24-2016 [place] [facility] RIGHT IMAGING ASS BREAST N6002 SOLITARY 11-24-2016 [place] [facility] OF MEDICAL LEFT BREAST IMAGING ASS R928 OTH ABNORM 11-24-2016 [place] & MEDICAL INCONCLUSIV IMAGING ASS E FIND ON DX IMAG BREAST K34927 ARCUS 11-23-2016 [facility] SENILIS BILATERAL H2513 AGE-RELATED 11-23-2016 [facility] NUCLEAR CATARACT BILATERAL E60115 REGULAR 11-23-2016 [facility] ASTIGMATISM BILATERAL L570 ACTINIC 11-23-2016 [facility] KERATOSIS D259 LEIOMYOMA 11-17-2016 [facility] OF UTERUS PHYSICIANS UNSPECIFIED GROUP N950 POSTMENOPAU 11-17-2016 [facility] DIANA PHYSICIANS BLEEDING GROUP R21 RASH AND 11-17-2016 [facility] OTHER [facility] NONSPECIFIC INC SKIN ERUPTION W52632 OTHER LONG 11-17-2016 [facility] TERM [facility] CURRENT INC DRUG THERAPY X11278I FX UNS 11-15-2016 [facility] CARPAL BONE HOME UNS WRIST MEDICAL INITIAL ENC EQUIPME CLOS FX K4090 UNILAT 11-11-2016 [facility] INGUINAL PHYSICIANS CEDRICK W/O GROUP OBST/GANGRE N NOT RECUR I712 THORACIC 11-10-2016 [facility] AORTIC [facility] ANEURYSM INC WITHOUT RUPTURE I716 THORACOABDO 11-09-2016 [place] [facility]IN [facility]ICAL AORTIC IMAGING ASS ANEURYSM WITHOUT RUPTURE I728 ANEURYSM OF 11-09-2016 [place] OTHER MEDICAL SPECIFIED IMAGING ASS ARTERIES J432 CENTRILOBUL 11-09-2016 [place] AR MEDICAL EMPHYSEMA IMAGING ASS K449 DIAPHRAGMAT 11-09-2016 [place] IC HERNIA MEDICAL W/O IMAGING ASS OBSTRUCTION OR GANGRENE N2889 OTHER 11-09-2016 [place] SPECIFIED MEDICAL DISORDERS IMAGING ASS OF KIDNEY AND URETER N289 DISORDER OF 11-09-2016 [place] [facility] AND [facility]ICAL URETER IMAGING ASS UNSPECIFIED R921 MAMMO 11-04-2016 [place] CALCIFICATI MEDICAL ON FOUND ON IMAGING ASS DX IMAGING BREAST Z1231 ENCOUNTER 11-04-2016 [place] SCREENING MEDICAL MAMMO MALIG IMAGING ASS NEOPLASM BREAST I10 ESSENTIAL 10-27-2016 [facility] PRIMARY PHYSICIANS HYPERTENSIO GROUP N Q35281 ENCOUNTER 10-27-2016 [facility] COMMUNITY MARKETING MANAGER EXAM PHYSICIANS GENERAL RTN GROUP W/ABNORMAL FIND C47999 ENCOUNTER 10-27-2016 [facility] COMMUNITY MARKETING MANAGER EXAM REFERNCE GENERAL RTN LABORATORIE W/O S ABNORMAL FIND Z1212 ENCOUNTER 10-27-2016 [facility] SCREENING PHYSICIANS MALIGNANT GROUP NEOPLASM RECTUM E785 HYPERLIPIDE 10-20-2016 [facility] JAIME PHYSICIANS UNSPECIFIED GROUP I119 HYPERTENSIV 10-20-2016 [facility] E HEART PHYSICIANS DISEASE GROUP WITHOUT HEART FAILURE I208 OTHER FORMS 10-20-2016 [facility] OF ANGINA PHYSICIANS PECTORIS GROUP I2510 ASHD CHINIK 10-20-2016 [facility] CORONARY PHYSICIANS ARTERY W/O GROUP ANGINA PECTORIS Z8679 PERSONAL 10-20-2016 [facility] HISTORY OTH PHYSICIANS DISEASES GROUP CIRCULATORY SYSTEM I214 NON-ST 09-01-2016 [facility] ELEVATION PHYSICIANS MYOCARDIAL GROUP INFARCTION G65291 ASHD CHIN[place] 09-01-2016 [facility] COR ART PHYSICIANS W/UNSTABLE GROUP ANGINA PECTORIS J441 CHRONIC 08-31-2016 [facility] OBSTRUCTIVE PHYSICIANS PULMONARY GROUP DZ W/EXACERBAT ION I252 OLD 08-30-2016 [facility] HOSPITAL P R0602 SHORTNESS 08-30-2016 [facility] R61 GENERALIZED 08-30-2016 [facility] P IS R6884 JAW PAIN 08-30-2016 [facility] J020 STREPTOCOCC 08-23-2016 [facility] PHARYNGITIS CENTER J0190 ACUTE 06-09-2016 [facility] SINUSITIS UNSPECIFIED J209 ACUTE 06-09-2016 [facility] BRONCHITIS UNSPECIFIED G4734 IDIOPATH 04-04-2016 [facility] NONOBST INC ALVEOL HYPOVENTILA TN R634 ABNORMAL 04-04-2016 [facility] WEIGHT LOSS [facility] INC R911 SOLITARY 04-04-2016 [facility] PULMONARY [facility] NODULE INC R918 OTHER 04-04-2016 [place] NONSPECIFIC MEDICAL ABNORMAL IMAGING ASS FINDING OF LUNG FIELD G4730 SLEEP APNEA 02-12-2016 [facility] NURSE PRACTITIONE UNSPECIFIED R GR J439 EMPHYSEMA 02-12-2016 [facility] NURSE UNSPECIFIED PRACTITIONE R GR Z23 ENCOUNTER 02-03-2016 [facility] IMMUNIZATIO [facility] DEPT N SINDHU J069 ACUTE UPPER 12-03-2015 [facility] OLY RESPIRATORY INFECTION UNSPECIFIED 60614 OBSTRUCTIVE 12-24-2014 [facility] APNEA MEDICAL EQUIPME 496 CHRONIC 12-24-2014 [facility] NEC 54435 UNSPECIFIED 12-16-2014 [facility] CLOSED HOME FRACTURE OF MEDICAL CARPAL EQUIPME BONE 4412 THORACIC 08-17-2014 MONTERROSO JOSS ANEURYSM WITHOUT MENTION OF RUPTURE 61839 SHORTNESS 08-17-2014 [facility] G 17002 OTHER 08-17-2014 MONTERROS[place] JOSS [place] [address] CHEST PAIN 08-17-2014 [facility] [place] UNSPECIFIED RADIOLOGY 4419 AORTIC 08-05-2014 EDISON DEMETRIO ANEUR UNSPEC SITE WITHOUT MENTION RUPTURE 5119 UNSPECIFIED 08-05-2014 [facility] [place] PLEURAL RADIOLOGY EFFUSION 25981 PAINFUL 08-05-2014 [facility] ATKINSON RESPIRATION 4019 UNSPECIFIED 08-01-2014 [facility] ESSENTIAL HEALTH [place] G N [address] DISSECTING 08-01-2014 [facility] AORTIC HEALTH ANEURYSM MEDICAL G THORACIC 67542 DISSECTING 08-01-2014 [facility] [place] AORTIC RADIOLOGY ANEURYSM THORACOABDO ERIN 7140 RHEUMATOID 08-01-2014 [facility] ARTHRITIS HEALTH MEDICAL G 38137 DISSECTING 07-28-2014 [facility] ANEURYSM CLINIC PSC UNSPECIFIED SITE 5180 PULMONARY 07-28-2014 [facility] [place] COLLAPSE RADIOLOGY V5882 ENCOUNTER 07-28-2014 [facility] [place] FITTING&ADJ RADIOLOGY NON-VASCULA R CATHETER NEC 4422 ANEURYSM OF 07-27-2014 [facility] ILIAC [facility] ARTERY [facility]OUND[facility] 23953 ANEURYSM OF 07-27-2014 [facility] SPLENIC SERV ARTERY [facility]OUNDATION 4928 OTHER 07-27-2014 [facility] EMPHYSEMA SERV [facility] 5533 DIAPHRAGMAT 07-27-2014 [facility] C[facility]RICK W/O SERV MENTION FOUNDATION OBSTRUCTION /GANGREN 82049 SOLITARY 07-27-2014 [facility] PULMONARY SERV NODULE FOUNDATION 15210 OTHER 04-21-2014 [facility] SELECTIVE ALTHEA IMMUNOGLOBU GILBERTO DEFICIENCIE S 2859 UNSPECIFIED 04-21-2014 [facility] ANEMIA [facility] INC 4739 UNSPECIFIED 04-21-2014 [facility] SINUSITIS [facility] INC 4770 ALLERGIC 04-21-2014 [facility] RHINITIS ALTHEA DUE TO POLLEN 4778 ALLERGIC 04-21-2014 [facility] RHINITIS ALTHEA DUE TO OTHER ALLERGEN 29943 OBSTRUCTIVE 04-21-2014 [facility] CHRONIC ALTHEA BRONCHITIS WITH EXACERBATIO N 4919 UNSPECIFIED 04-21-2014 [facility] CHRONIC [facility] BRONCHITIS INC 04137 CHRONIC 04-21-2014 [facility]STRUCTIVE [facility] ASTHMA INC UNSPECIFIED 95138 OTHER 04-21-2014 [facility]AISE AND [facility] FATIGUE INC V727 DIAGNOSTIC 04-21-2014 F[facility] SKIN AND ALTHEA SENSITIZATI ON TESTS 4660 ACUTE 03-11-2014 [facility] OLY BRONCHITIS 4659 ACUTE URIS 02-13-2014 [facility] OLY OF UNSPECIFIED SITE 3384 CHRONIC 12-20-2013 [facility] OLY PAIN SYNDROME 462 ACUTE 12-20-2013 [facility] OLY PHARYNGITIS 4779 ALLERGIC 10-24-2013 F[facility] RHINITIS ALTHEA CAUSE UNSPECIFIED 38103 CHRONIC 10-24-2013 F[facility] OBSTRUCTIVE ALTHEA ASTHMA W/STATUS ASTHMATICUS 55198 ESOPHAGEAL 10-24-2013 FERMÍN REFLUX ALTHEA 9390 FOREIGN 06-10-2013 [facility] [place] BL[facility]DER [facility] ADULT & PED URETHRA 5921 CALCULUS OF 05-21-2013 [facility] RICHEY URETER CONSULTING SRV V7281 PRE-OPERATI 05-21-2013 [facility] RICHEY VE CARDIOVASCU CONSULTING LAR SRV EXAMINATION 591 HYDRONEPHRO 05-16-2013 [facility] [place] [facility]ULT [facility]ED 7880 RENAL COLIC 05-05-2013 [facility] 2669 UNSPECIFIED 04-22-2013 [facility] VITAMIN B [facility] DEFICIENCY INC 2689 UNSPECIFIED 04-22-2013 [facility] VITAMIN D [facility] DEFICIENCY INC 59546 OBSTRUCTIVE 04-22-2013 [facility] CHRONIC [facility] BRONCHITIS INC WITHOUT EXACERBAT 4829 UNSPECIFIED 04-18-2013 FER[facility]ÍN BACTERIAL ALTHEA PNEUMONIA 4619 ACUTE 02-28-2013 [facility] OLY SINUSITIS, UNSPECIFIED 25562 VARIANTS 12-01-2012 [facility] OLY MIGRAINE NEC INTRACT MIGRAINE W/[place] 0[address] PAIN IN 06-06-2012 ARTHRITIS JOINT, AND MULTIPLE OSTEOPOROSI SITES S C 7242 LUMBAGO 06-06-2012 ARTHRITIS AND OSTEOPOROSI S C 7291 UNSPECIFIED 06-06-2012 [facility] MYALGIA AND AND OSTEOPOROSI MYOSITIS S C 28206 UNSPECIFIED 06-01-2012 [facility] OSTEOPOROSI S V5876 AFTERCARE 06-01-2012 [facility] NEC 5930 NEPHROPTOSI 05-29-2012 [facility] ANESTHESIA GROUP PS V7283 OTHER 05-28-2012 [facility] SPECIFIED COMMUNITY PRE-OPERATI HOSPITA VE EXAMINATION 2112 BENIGN 05-24-2012 [facility] NEOPLASM OF [facility] DUODENUM INC JEJUNUM AND ILEUM 42745 ACUT GASTR 05-24-2012 PATHOLOGY & ULCER W/O CYTOLOGY MENTION LAB HEMORR PERF/OBST 62125 UNS 05-24-2012 [facility] GASTRITIS&G [facility] ASTRODUODIT INC IS W/O MENTION HEMORR 76924 DYSPHAGIA 05-24-2012 [facility] UNSPECIFIED [facility] INC 93603 UNSPECIFIED 05-16-2012 JEANNETTE SORENSEN MD ARTHROPATHY PSC OTHER SPECIFIED SITES 4780 HYPERTROPHY 05-14-2012 [facility]ÍN OF NASAL ALTHEA TURBINATES 35951 MIGRAINE 04-25-2012 [facility] AURA NEUROLOGY INTRACT W/O CENTER [facility] STATUS MIGRAINOSUS 66451 CHRONIC 04-25-2012 [facility] MIGRAINE NEUROLOGY W/O CENTER [facility] W/INTRACTAB LE W/O SM 7231 CERVICALGIA 04-25-2012 [facility] 486 PNEUMONIA, 01-11-2012 [facility] ORGANISM [facility] UNSPECIFIED INC 49054 CHRONIC 12-27-2011 ERICA FATIGUE FRANCHESCA AGEE SYNDROME PSC 7830 ANOREXIA 12-27-2011 JEANNETTE SORENSEN MD PSC V0481 NEED 12-21-2011 [facility] VACCINATION &INOCULATIO N FLU 5920 CALCULUS OF 12-14-2011 [facility] KIDNEY [facility] INC 36102 HEMATURIA 12-14-2011 [place] UNSPECIFIED [facility]ICAL IMAGING ASS 88351 COR 11-29-2011 [facility] ATHEROSLERO UNSPEC TYPE VESSEL CHINIK/LYNN T 03788 ABDOMINAL 11-17-2011 [facility] [place] PAIN, RADIOLOGY UNSPECIFIED SITE 5929 UNSPECIFIED 11-02-2011 MEÑO ALDRIDGE URINARY CALCULUS 15853 OTHER ACUTE 10-10-2011 [facility] 5990 URINARY 10-10-2011 [facility] TRACT [facility]ERG[facility] INFECTION SERVICES SITE NOT SPECIFIED 27339 NAUSEA WITH 10-10-2011 [facility] VOMITING [facility]ANCE SERVICE 19159 ABDOMINAL 10-10-2011 [facility] PA[facility], EMERGENCY EPIGASTRIC SERVICES 8408 SPRAIN&STRA 04-11-2011 [facility] SPEC [facility] P SHOULDER&UP PER ARM 8409 SPRAIN&STRA 04-11-2011 [facility] IN UNSPEC EMERGENCY SITE SERVICES SHOULDER&UP PER ARM 04593 GENERALIZED 04-05-2011 [facility] PAIN FRANCHESCA AGEE PSC 13988 CLOSED 01-12-2011 [facility] FRACTURE OF [facility]OS[facility] LOWER END INC OF RADIUS WITH ULNA V5489 OTHER 01-12-2011 [place] [facility] IM[facility] 34815 CLOSED 12-22-2010 [facility] COLLES [facility] FRACTURE INC 30893 CONTUSION 11-19-2010 [facility] OF KNEE [facility] INC 9597 INJURY 11-19-2010 [place] OTHER&UNSPE MEDICAL CIFIED KNEE IMAGING ASS LEG ANKLE&FOOT 74991 PAIN IN 11-12-2010 [facility] JOINT, SHOULDER REGION 920 CONTUSION 11-12-2010 [place] OF FACE MEDICAL SCALP AND IMAGING ASS NECK EXCEPT EYE 9248 CONTUSION 11-12-2010 GRISEL[facility] OF MULTIPLE EMERGENCY SITES NEC SERVICES 2809 UNSPECIFIED 04-05-2010 [facility] IRON [facility] DEFICIENCY INC ANEMIA 1749 MALIGNANT 03-15-2010 [facility] NEOPLASM OF [facility] BREAST INC UNSPECIFIED SITE 7804 DIZZINESS 02-23-2010 JAZMINE C AND JOVANNY GIDDINESS 7802 SYNCOPE AND 02-17-2010 [facility] COLLAPSE NEUROLOGY CENTER [facility] V7611 SCREENING 02-12-2010 [facility] MAMMOGRAM [facility] FOR INC HIGH-RISK PATIENT V7612 OTHER 02-12-2010 [place] SCREENING MEDICAL MAMMOGRAM IMAGING ASS 55480 ANEMIA IN 02-01-2010 [facility] CHRONIC [facility] KIDNEY INC DISEASE 2113 BENIGN 01-27-2010 PATHOLOGY & NEOPLASM OF CYTOLOGY COLON LAB 2114 BENIGN 01-27-2010 PATHOLOGY & NEOPLASM OF CYTOLOGY RECTUM AND LAB ANAL CANAL V7651 SPECIAL 01-27-2010 [facility]CREEN[facility] SERV FOR F[facility]ATIO MALIGNANT NEOPLASMS COLON 34738 ATROPHIC 01-06-2010 PATHOLOGY & GASTRITIS CYTOLOGY WITHOUT LAB MENTION OF HEMORRHAGE 74058 OTHER SPEC 01-06-2010 [facility] GASTRITIS SERV WITHOUT FOUNDATIO MENTION HEMORRHAGE 5564 PSEUDOPOLYP 01-06-2010 PATHOLOGY & OSIS OF CYTOLOGY COLON LAB 2827 OTHER 12-30-2009 [facility] HEMOGLOBINO [facility] PATHIES INC 2768 HYPOPOTASSE 12-21-2009 [facility] JAIME [facility] INC 85773 ING CEDRICK 12-19-2008 JUDIE, W/O MENTION LISA OBST/GANGRE N UNILAT/UNSP EC 7840 HEADACHE 12-05-2008 SHARMAINE CARRERA Medications Na ND Rx Da Fi Fi Am Da Di Ph RX Ph St me C No te ll ll ou ys ag ar # ys at rm s nt no ma ic us Or Da si cy ia de te s n re d NV 59 09 10 10 5 00 EA Ac ED 74 -1 -[address] ti NI 60 5- 3- 00 00 SI ve SO 17 20 20 50 DE NE 50 17 17 17 6 02 PH 20 AR MA MG CY TA OF BL CY ET NT HI AN A IN C AC 69 09 10 50 10 00 [...] 17 17 49 TA 5 84 PH DE AR N- MA CA CY FF OF 50 CY -3 NT 25 HI -4 AN 0 A IN C CY 51 09 10 60 30 00 EA Ac NV 99 -1 -[address] ti OH 10 9- 3- 00 00 SI ve EP 83 20 20 50 DE TA 80 17 17 21 DI 1 13 PH NE AR 4 MA CY MG OF TA CY BL NT ET HI AN A IN C NV 54 09 10 28 7 00 EA [...] ve C 06 20 20 49 DE NV 30 17 17 14 EN 1 34 [...] ST ti RA 60 1- 9- 00 00 SI ve MA 70 20 [...] 18 -3 -[address] ti NV 50 1- 9- 00 00 SI ve OL 77 20 20 49 DE OL 43 17 17 14 0 32 PH FU AR MA MA RA CY TE OF 10 CY NT MG HI AN TA A B IN C HY 23 09 09 [address] 15 -0 -[address] ti OX 50 1- 9- 00 00 SI ve YZ 10 20 20 [...] MA CY MC G OF IN CY BUTCHRE NT LE HI R AN A IN [...] 17 17 49 TA 5 84 PH DE AR N- MA CA CY FF OF 50 CY -3 NT 25 HI -4 AN 0 A IN C BI 00 08 09 30 30 00 EA Ac SO 18 -0 -[address] ti NV 50 4- 1- 00 00 SI ve [...] ve C 06 20 20 49 DE NV 30 17 17 14 EN 1 34 [...] 17 17 49 TA 5 84 PH DE AR N- MA CA CY FF OF [...] 18 -1 -[address] ti NV 50 5- 4- 00 00 SI ve [...] ve C 06 20 20 49 DE NV 30 17 17 14 EN 1 34 [...] LE HI R AN A IN C NV 59 06 06 27 7 00 EA Ac ED 74 -0 -[address] ti NI 60 7- 0- 00 00 SI ve SO 17 20 20 49 DE NE 31 17 17 03 0 71 PH 10 AR MA MG CY TA OF BL CY ET NT HI AN A IN C CE 00 05 06 [...] H AN A IN C BU 00 05 06 60 30 00 EA Ac NV 59 -2 -[address] ti OP 13 5- 3- 00 00 SI ve IO 54 20 20 48 DE N 36 17 17 58 HC 0 99 PH L AR SR MA CY 15 0 OF MG CY NT TA HI BL AN ET A IN C BE 00 05 05 [...] 17 17 57 E 5 15 PH NV AR OP MA CY 50 OF MC CY G NT SP HI RA AN Y A IN C BU 00 05 05 60 30 00 EA Ac NV 59 -0 -[address] ti OP 13 2- 6- 00 00 SI ve IO 54 20 20 48 DE N 36 17 17 58 HC 0 99 PH L AR SR MA CY 15 0 OF MG CY NT TA HI BL AN ET A IN C CL 00 05 05 30 30 00 EA Ac 53 -0 -[address] ti SI 64 1- 6- 00 00 SI ve C 06 20 20 48 DE NV 30 17 17 57 EN 1 01 PH AT AR AL MA CY TA BL OF ET CY NT HI AN A IN C IN 00 04 04 [...] ve C 06 20 20 47 DE NV 30 17 17 69 EN 1 99 [...] 17 17 76 E 5 28 PH NV AR OP MA CY 50 OF MC [...] LE HI R AN A IN C BE 65 03 [...] .[address] ti RI 40 6- 4 00 SI ve ZI 27 20 20 48 DE NE 10 17 17 00 3 11 PH HC AR L MA 10 CY MG OF CY TA NT BL HI ET AN A IN C BE 00 03 04 15 10 00 EA Ac TA 16 -1 -[address] ti ME 80 6- 00 SI ve TH 05 20 20 48 DE 51 17 17 00 ON 5 12 PH E AR DP MA CY 0. 05 OF % CY CR NT M HI AN A IN C SMITH 53 03 04 20 10 00 EA Ac LF 74 -1 -[address] ti AM 60 6- 4 00 SI ve ET 27 20 20 48 DE HO 20 17 17 00 XA 5 09 PH ZO AR LE MA -T CY MP OF DS CY NT TA HI BL AN ET A IN C IN 00 03 03 30 30 00 EA Ac CR 17 -0 -[address] ti US 30 6- 00 SI ve E 87 20 20 47 DE EL 31 17 17 51 LI 0 17 PH PT AR A MA 62 CY .5 OF MC CY G NT IN HI H AN A IN C BU 00 03 03 60 30 00 EA Ac NV 59 -0 -[address] ti [...] ve C 06 20 20 47 DE NV 30 17 17 69 EN 1 99 PH AT AR AL MA CY TA BL OF ET CY NT HI AN A IN C IN 00 02 03 30 30 00 EA Ac CR 17 -0 -[address] ti US 30 6- 3- 00 SI ve E 87 20 20 47 DE EL 31 17 17 51 LI 0 17 PH PT AR A MA 62 CY .5 OF MC CY G NT IN HI H AN A IN C BU 00 01 02 60 30 00 EA Ac NV 59 -3 -[address] ti OP 13 0- 4- 00 00 SI ve IO 54 20 20 46 DE N 36 17 17 58 HC 0 14 PH L AR SR MA CY 15 0 OF MG CY NT TA HI BL AN ET A IN C CL 00 01 02 30 30 00 EA Ac 53 -2 -[address] ti SI 64 1- 7- 00 SI ve C 06 20 20 45 DE NV 30 17 17 36 EN 1 05 PH AT AR AL MA CY TA BL OF ET CY NT HI AN A IN C SE 00 01 02 60 30 00 EA Ac RE 17 -2 -[address] ti VE 30 - 7 00 SI ve NT 52 20 [...] .[address] ti OL 30 - 7 00 SI ve IN 68 20 20 [...] 12 01 60 30 00 EA Ac NV 59 -2 -[address] ti OP 13 8- 0- 00 00 SI ve IO 54 20 20 46 DE N 36 16 17 58 HC 0 14 PH L AR SR MA CY 15 0 OF MG CY NT TA HI BL AN ET A IN C LO 16 12 01 [...] ve C 06 20 20 45 DE NV 30 16 17 36 EN 1 05 PH AT AR AL MA CY TA BL OF ET CY NT HI AN A IN C FL 60 12 01 16 30 00 EA Ac UT 43 -1 -[address] ti IC 20 3- 9- 00 00 SI ve 26 20 20 45 DE ON 41 16 17 76 E 5 28 PH NV AR OP MA CY 50 OF MC [...] 11 11 RI TA 8 PH CH DE AR AR N- MA D CA CY [...] 11 11 RI TA 8 PH CH DE AR AR N- MA D CA CY W FF OF 50 -3 CY 25 NT -4 HI 0 AN A NA 53 09 09 5 60 5 EA 23 AR Ac NV 74 -0 -[address] 93 NO [...] 0 10 5 EA 23 SO Ac NV 74 -1 -[address] 72 KA [...] 11 11 RI TA 8 PH CH DE AR AR N- MA D CA CY [...] A OF CY NT HI AN A SA [...] 11 11 SHRUTHI TA 8 PH E DE AR A N- MA CA CY FF [...] 10 10 SHRUTHI TA 8 PH E DE AR A N- MA CA CY FF OF 50 -3 CY 25 NT -4 HI 0 AN A 00 12 12 2 53 30 EA 20 MA Ac 06 -2 -[address] 47 CR ti 90 0- 1- 00 SI 64 IN ve 47 20 20 DE IC 19 10 10 I 7 PH VA AR LE MA NT CY IN A OF CY NT HI AN A SA [...] 10 10 SHRUTHI TA 8 PH E DE AR A N- MA CA CY FF [...] -1 -[address] 58 SC ti NV 90 8- 8- 0 SI 45 H [...] 10 10 SHRUTHI TA 8 PH E DE AR A N- MA CA CY FF [...] 10 10 SHRUTHI TA 8 PH E DE AR A N- MA CA CY FF OF 50 -3 CY 25 NT -4 HI 0 AN A BU 00 07 07 0 36 6 EA 18 NI Ac TA 60 -1 -[address] 32 CH ti LB 32 3- 3- 00 SI 75 OL ve -A 54 20 20 DE S CE 42 10 10 SHRUTHI TA 8 PH E DE AR A N- MA CA CY FF OF 50 -3 CY 25 NT -4 HI 0 AN A BU 00 03 03 0 36 6 EA 16 NI Ac TA 59 -0 -[address] 59 CH ti LB 13 2- 2- 00 SI 46 OL ve -A 36 20 20 DE S CE 90 10 10 SHRUTHI TA 5 PH E DE AR A N- MA CA CY FF [...] 10 10 SHRUTHI TA 5 PH E DE AR A N- MA CA CY FF OF 50 CY -3 NT 25 HI -4 AN 0 A BU 00 01 01 00 36 7 EA 15 NI Ac TA 59 -0 -[address] 90 CH ti LB 13 9- 8- 00 SI 22 OL ve -A 36 20 20 DE S CE 90 10 10 SHRUTHI TA 5 PH E DE AR A N- MA CA CY FF OF 50 CY -3 NT 25 HI -4 AN 0 A BU 00 12 12 00 36 7 EA 15 NI Ac TA 59 -1 -[address] 57 CH ti LB 13 4- 1- 00 SI 60 OL ve -A 36 20 20 DE S CE 90 09 09 SHRUTHI TA 5 PH E DE AR A N- [place] CY FF [...] 09 09 SHRUTHI TA 1 PH E DE AR A N- [place] CY FF [...] 09 09 SHRUTHI TA 1 PH E DE AR A N- [place] CY FF [...] Procedure DOS Code Location Performer Comment INTERROGA 66336 [facility] RICHARD SCHROEDER 7 PHYSICIAN EVALUATIO S GROUP N IN PERSON ILR SYSTEM CATH PLMT 71964 LANDEN Rubio HRT & 7 [facility] ARTS INC INC W/NJX & ANGIO IMG S&I BASIC 45652 LANDEN SCHUSTER METABOLIC 7 [facility] PANEL INC INC CALCIUM TOTAL BLOOD 18207 LANDEN SCHUSTER COUNT 7 [facility] COMPLETE INC INC AUTO&AUTO DIFRNTL WBC MOD SED 56470 LANDEN SCHUSTER SAME 7 [facility] PHYS/QHP INC INC INITIAL 15 MINS <5 YRS URINE 35869 LANDEN SCHUSTER 7 [facility] TEST INC INC VISUAL COLOR CMPRSN METHS SPECIAL 61397 ADVANCED MERARY STAIN 7 DERMATOLO GROUP 1 GY MICROORGA NISDE I&[place] [address] ADVANCED MERARY SURG 7 DERMATOLO PATHOLOGY GY GROSS&MANJIT ROSCOPIC EXAM DIAGNOSTI G0204 [place] Mc[place] 7 MEDICAL MAMMOGRAP IMAGING HY INCL ASS CAD WHEN PERF; BILAT DIAGNOSTI 05035 LANDEN SCHUSTER C 7 [facility] MAMMOGRAP INC INC HY COMPUTER- AIDED DETCJ BI US BREAST 79146 LANDEN SCHUSTER UNI REAL 7 [facility] TIME INC INC WITH IMAGE COMPLETE US BREAST 81325 [place] UNI REAL 7 MEDICAL TIME IMAGING WITH ASS IMAGE LIMITED FRAMES V2020 JOSE GARCIA PURCHASES 7 BIFOCL V2207 JOSE GARCIA +/-4.25-+ 7 /-7.00D SPHER 0.12-2.00 D CYL-EA FITTING 00010 JOSE GARCIA SPECTACLE 7 S XCPT APHAKIA BIFOCAL BIFOCL V2208 JOSE GARCIA +/-4.25-+ 7 /-7.00D SPHER 2.12-4.00 D CYL-EA O2 CONC 1 E1390 [facility] [place] 7 HOME HOME 85%/>02 MEDICAL MEDICAL CONC AT EQUIPME EQUIPME PRSC FLW RATE IMPLANTAT 31717 [facility] RICHARD ION 7 PHYSICIAN PT-ACTIVA S GROUP SREE CARDIAC EVENT RECORDER ENDOMETRI 90927 [facility] [place] AL BX 7 PHYSICIAN W/WO S GROUP ENDOCERVI X BX W/O DILAT SPX EVENT C1764 LANDEN SCHUSTER RECORDER 7 [facility] CARDIAC INC INC HOSPITAL G0463 LANDEN SCHUSTER OUTPATIEN 7 [facility] T CLIN INC INC VISIT ASSESS & MGMT [facility] THORAX 22744 [facility] 7 MEDICAL W/CONTRAS IMAGING T ASS MATERIAL FINAL G9638 [facility] REPORTS 7 MEDICAL W/O DOC IMAGING 1/MORE ASS DOSE REDUCTION TECH FINAL RPT G9557 [facility] CT[facility]MRI 7 MEDICAL CHEST/NCK IMAGING /U/S NO ASS THR NOD<1.0 CM FINAL G9551 [facility] REPR ABD 7 MEDICAL IMAG STS IMAGING W/O ASS INCIDNT FND LES NTD: [place] [address] LANDEN SCHUSTER ANGIOGRAP 7 [facility] HY CHEST INC INC W/CONTRAS T/[place] [address] LANDEN SCHUSTER ANGIOGRAP 7 [facility] HY INC INC ABDOMEN [place]/CONTR[place] [address] LANDEN SCHUSTER RETROPERI 7 [facility] TONEAL INC [place] TIME W/[place] [address] [facility] RETROPERI 7 MEDICAL TONEAL IMAGING REAL TIME ASS W/[place] [address] [facility] ABDOMEN 7 MEDICAL [place] [address] [facility] TRANSVAGI 7 MEDICAL NAL IMAGING ASS INFO 7025F [facility] SYSTEM 7 MEDICAL ANALYSIS IMAGING ABNORMAL ASS INTERPRAT E SCREENING G0202 [facility] 7 MEDICAL MAMMOGRAP IMAGING HY JERRY ASS INCL CAD WHEN PERFORMD SCREENING 47925 LANDEN SCHUSTER 7 [facility] MAMMOGRAP INC INC HY BI 2-VIEW BREAST INC CAD MAMMO 3340F [facility] ASSESSMEN 7 MEDICAL T CAT IMAGING INCOMP ASS ADDTNL IMAGE DOCD COLLECTIO 96142 LANDEN SCHUSTER N VENOUS 7 [facility] [place] [address] LANDEN SCHUSTER UREA 7 [facility] NITROGEN INC INC QUANTITAT JADON CREATININ 71447 LANDEN SCHUSTER E BLOOD 7 [facility] INC INC BLOOD 75538 [facility] OCCULT 7 PHYSICIAN PHYSICIAN PEROXIDAS S GROUP S GROUP E ACTV QUAL FECES 1-3 SPEC IADNA 22995 BIO BIO TRICHOMON 7 REFERNCE 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 VAGINALIS IES IES AMPLIFIED PROBE TECH IADNA 31844 [facility] HARPEL NEISSERIA 7 PHYSICIAN S GROUP GONORRHOE AE DIRECT PROBE TQ IADNA 12290 BIO BIO NEISSERIA 7 REFERNCE 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 GONORRHOE IES IES AE AMPLIFIED PROBE TQ IADNA NOS 71549 BIO BIO 7 REFERNCE REFERNCE AMPLIFIED LABORATOR LABORATOR PROBE TQ IES IES EACH ORGANISM CULTURE 55462 [facility] HARPEL CHLAMYDIA 7 PHYSICIAN ANY S GROUP SOURCE CYTP C/V 26564 BIO BIO AUTO THIN 7 REFERNCE REFERNCE LYR LABORATOR LABORATOR PREPJ SCR IES IES MNL RESCR PHYS IADNA 12242 BIO BIO CHLAMYDIA 7 REFERNCE 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 TRACHOMAT IES IES IS AMPLIFIED PROBE TQ ECG 92893 [facility] RICHARD ROUTINE 7 PHYSICIAN ECG S GROUP W/LEAST 12 LDS I&R ONLY ECG 05874 LANDEN SCHUSTER ROUTINE 7 [facility] ECG INC INC W/LEAST 12 LDS TRCG ONLY W/O I&R O2 CONC 1 E1390 [facility] [place] 7 HOME HOME 85%/>02 MEDICAL MEDICAL CONC AT EQUIPME EQUIPME PRS FLW RATE DRUG TEST 79368 LANDEN SCHUSTER PRSMV 7 [facility] QUAL DIR INC INC OPTICAL OBS PER DAY NEBULIZER E0570 SH[facility] SHAQ WITH 7 HOME HOME COMPRESSO MEDICAL MEDICAL R EQUIPME EQUIPME ADMN SET A7005 YOUR YOUR W/SM VOL 7 PHARMACY [facility] NE[facility]UL[facility] NON-DISPB L ECG 80420 LANDEN SCHUSTER ROUTINE 7 [facility] ECG INC INC W/LEAST 12 LDS TRCG ONLY W/O I&R O2 CONC 1 E1390 [facility]Y [place] 7 HOME HOME 85%/>02 MEDICAL MEDICAL CONC AT EQUIPME EQUIPME PRS FLW RATE CLOSURE C1760 LANDEN SCHUSTER DEVICE 7 [facility] VASCULAR INC INC INTRDUCR/ C1894 LANDEN SCHUSTER SHEATH 7 [facility] NOT GUID INC INC INTRACARD EP NON-LAS[place] PR[place] 14841 LANDEN SCHUSTER TRLUML 7 [facility] CORONARY INC INC STENT W/ANGIO ONE ART/BRNCH COAGULATI 81461 LANDEN SCHUSTER ON TIME 7 [facility] ACTIVATED INC INC LIPID 12816 LANDEN SCHUSTER PANEL 7 [facility] INC INC BLOOD 63771 LANDEN SCHUSTER COUNT 7 [facility] COMPLETE INC INC AUTO&AUTO DIFRNTL WBC BASIC 77455 LANDEN SCHUSTER METABOLIC 7 [facility] PANEL INC INC CALCIUM TOTAL COLLECTIO 91094 LANDEN SCHUSTER N VENOUS 7 [facility] BLOOD INC INC VENIPUNCT [facility]RE [facility] G0378 LANDEN SCHUSTER OBSERVATI 7 [facility] ON INC INC SERVICE PER [facility] 95815 [facility] 7 PHYSICIAN DAY S GROUP MANAGEMEN T 30 MIN/< GUIDE C1769 LANDEN SCHUSTER WIRE 7 [facility] INC INC STENT C1876 LANDEN SCHUSTER NON-COATE 7 [facility] D/NON-COV INC INC ERED W/DELIVER Y SYSTEM CATHETER C1725 LANDEN SCHUSTER TRANSLUMI 7 [facility] NAL INC INC ANGIOPLAS TY NON-LASER GUIDE C1769 LANDEN SCHUSTER WIRE 7 [facility] INC INC CATHETER C1725 LANDEN SCHUSTER TRANSLUMI 7 [facility] NAL INC INC ANGIOPLAS TY NON-LASER HOSPITAL G0378 LANDEN SCHUSTER OBSERVATI 7 [facility] ON INC INC SERVICE PER HOUR CATH PLMT 79333 LANDEN SCHUSTER L HRT & 7 [facility] ARTS INC INC W/NJX & ANGIO IMG S&I INITIAL 80285 [facility] 7 PHYSICIAN CARE/DAY S GROUP 50 MINUTES URINE 85400 LANDEN SCHUSTER 7 [facility] TEST INC INC VISUAL COLOR CMPRSN METHS GROUND A0425 [facility] 7 AMBULANCE AMBULANCE PER SERVICE SERVICE STATUTE MILE COMPREHEN 75329 LANDEN SCHUSTER SIVE 7 [facility] METABOLIC INC INC PANEL THERAPEUT 82469 LANDEN SCHUSTER IC 7 [facility]OS[facility] INJECTION INC INC IV PUSH EACH NEW DRUG ECG 12916 LANDEN SCHUSTER ROUTINE 7 [facility] ECG INC INC W/LEAST 12 LDS TRCG ONLY W/[place] [address] LANDEN SCHUSTER INFUSION 7 [facility]OS[facility] THERAPY/P INC INC ROPHYLAXI S /DX 1ST TO 1 HR ECG 99549 LANDEN BATISTA JR ROUTINE 7 [facility] W/LEAST P 12 LDS I&R ONLY PRESSURIZ 10250 LANDEN SCHUSTER ED/NONPRE 7 [facility] SSURIZED INC INC INHALATIO N TREATMENT BLOOD 86084 LANDEN SCHUSTER COUNT 7 [facility] COMPLETE INC INC AUTO&[place] [address] LANDEN SCHUSTER TROPONIN 7 [facility] QUANTITAT INC INC JADON RADIOLOGI 87119 [facility] C 7 MEDICAL EXAMINATI IMAGING ON CHEST ASS SINGLE VIEW FRONTAL AMB A0427 [facility] 7 AMBULANCE AMBULANCE ALS SERVICE SERVICE EMERGENCY TRANSPORT LEVEL 1 CRITICAL 51530 [facility] 7 PHYSICIAN ILL/INJUR S, [facility] ED PATIENT INIT 30-74 MIN IAADIADOO 92023 [facility] 7 FAMILY STREPTOCO CARE CCUS CENTER GROUP A O2 CONC [...] CONC AT EQUIPME EQUIPME PRSC FLW RATE CT THORAX 33171 [place] W/O 7 MEDICAL CONTRAST IMAGING MATERIAL ASS FINAL RPT G9557 [place] [address]/MRI 7 MEDICAL CHEST/NCK IMAGING /U/S NO ASS THR NOD<1.0 CM FINAL G9638 [place] REPORTS 7 MEDICAL W/O DOC IMAGING 1/MORE ASS DOSE REDUCTION TECH O2 CONC 1 E1390 [facility] [place] 6 HOME HOME 85%/>02 MEDICAL MEDICAL CONC AT EQUIPME EQUIPME PRSC FLW RATE O2 CONC 1 E1390 [facility] [place] 6 HOME HOME 85%/>02 MEDICAL MEDICAL CONC AT EQUIPME EQUIPME PRSC FLW RATE PULMONARY 57441 [facility] JANE STRESS 6 [place] [address] [facility] BUCK DIFFUSING 6 MEDICAL CAPACITY SERV FOUNDATIO N SPMTRY 70908 [facility] JANE W/VC 6 MEDICAL EXPIRATOR SERV Y ANA MARIA FOUNDAT[facility] W/WO MXML N VOL VNTJ PLETHYSMO 43476 [facility] JANE GRAPHY 6 MEDICAL LUNG SERV VOLUMES FOUNDAT[facility] W/WO N AIRWAY RESIST IIV4 VACC 04302 [facility] 6 [facility] DISTRICT VIRUS 0.5 HLTH DEPT HLTH DEPT ML DOS SINDHU SINDHU FOR IM USE COLLECTIO 63090 LANDEN SCHUSTER N VENOUS 6 [facility] BLOOD INC INC VENIPUNCT URE ANTIBODY 90593 LANDEN SCHUSTER IDENTIFIC 6 [facility] ATION INC INC LEUKOCYTE ANTIBODIE S ANTINUCLE 98856 LANDEN SCHUSTER AR 6 [facility] ANTIBODIE INC INC S CARLOS ALPHA-1-A 20797 LANDEN SCHUSTER NTITRYPSI 6 [facility] N INC INC PHENOTYPE BLOOD 85535 LANDEN SCHUSTER COUNT 6 [facility] COMPLETE INC INC AUTO&AUTO DIFRNTL WBC COMPREHEN 68917 LANDEN SCHUSTER SIVE 6 [facility] [address] LANDEN SCHUSTER THYROID 6 [facility] STIMULATI INC INC NG HORMONE TSH O2 CONC E1390 SHAQ NEW [facility] 6 HOME HOME 85%/>02 MEDICAL MEDICAL CONC AT E[facility] FLW RATE O2 CONC 1 E1390 SHAQ ORDONEZRELL [facility] 6 HOME HOME 85%/>02 MEDICAL MEDICAL CONC AT EQUIPME EQUIPME PRS FLW RATE O2 CONC 1 E1390 [facility] NEW [facility] 6 HOME HOME 85%/>02 MEDICAL MEDICAL CONC AT EQUIPME EQUIPMD PRS FLW RATE ADMN SET A7005 YOUR YOUR W/SM VOL 6 PHARMACY [facility] NEBULIZ[facility] NON-DISPB L O2 CONC 1 E1390 SHAQ ORDONEZRELL [facility] 6 HOME HOME 85%/>02 MEDICAL MEDICAL CONC AT E[facility] FLW [facility]ATE O2 CONC 1 E1390 [facility] NEW [facility] 6 HOME HOME 85%/>02 MEDICAL MEDICAL CONC AT EQUIPME EQUIPME PRSC FLW RATE O2 CONC 1 E1390 [facility] [place] [...] MEDICAL W/POS EQUIPME EQUIPME ARWAY PRESSURE DEVICE ADMN SET A7005 YOUR YOUR W/SM VOL 5 PHARMACY [facility] NE[facility]UL[facility] NON-DISPB L CUSHN A7032 [facility] NEW [place] 5 HOME HOME MASK MEDICAL MEDICAL INTERFACE EQUIPME EQUIPME REPLACEME NT ONLY EACH O2 CONC 1 E1390 [facility] [place] [...] RENT; EQUIPME EQUIPME FLWMTR HUMIDFR&M ASK ECG 91505 MONTERROSO MONTERROSO ROUTINE 5 JOSS JOSS ECG W/LEAST 12 LDS I&R ONLY RADIOLOGI 04946 MONTERROSO MONTERROSO C 5 JOSS JOSS EXAMINATI ON CHEST SINGLE VIEW FRONTAL O2 CONC 1 E1390 [facility] [place] 5 HOME HOME 85%/>02 MEDICAL MEDICAL CONC AT EQUIPME EQUIPME PRSC FLW RATE RADIOLOGI 81753 [facility] [place] KOSTELIC C 5 RADIOLOGY KALPESH EXAMINATI ON CHEST SINGLE VIEW FRONTAL ECG 30717 [facility] ROUTINE 5 NE HEALTH [place]PES[place] ECG MEDICAL W/LEAST G 12 LDS I&[place] [address] [facility] [place] ANGIOGRAP 5 RADIOLOGY [place] HY CHEST W/CONTRAS T/[place] [address] [facility] [place] ANGIOGRAP 5 RADIOLOGY GUTIERREZ HY CHEST W/CONTRAS T/NONCONT RAST CT ANGIO 63744 [facility] [place] ABD&PLVIS 5 RADIOLOGY GUTIERREZ CNTRST MTRL W/WO [facility]ST IMG INITIAL 36715 [facility] 5 NE HEALTH CARE/DAY MEDICAL 70 G MINUTES RADIOLOGI 82439 [facility] [place] SIMEON C 5 RADIOLOGY ISHMAEL EXAMINATI ON CHEST SINGLE VIEW FRONTAL RADIOLOGI 59170 [facility] [place] SIME[place] C 5 RADIOLOGY ISHMAEL EXAMINATI ON CHEST SINGLE VIEW FRONTAL ANES HRT [address] PERICRD 5 A SAC&GRT ASSOCIATE VSLS S PSC W/BANQUET SERVER OXTJ >1MO PO ASCENDING 85384 EM IV EM IV AORTA 5 OLY OLY GRF W/CARD BYP & VALVE SSP DOPPLER [address] ECHOCARD 5 A PULSE ASSOCIATE WAVE S PSC W/SPECTRA L DISPLAY SPCL STN 26524 KAHLIL PICHARDO 2 I&R 5 [facility] EXCPT CLINIC MICROORG/ P[place] [address] [place] SURG 5 [facility] PATHOLOGY CLINIC PSC GROSS&MANJIT ROSCOPIC EXAM ECHO [address] TRANSESOP 5 A HAG R-T ASSOCIATE 2D W/PRB S PSC IMG ACQUISJ I&R DOP [address] ECHOCARD 5 A COLOR ASSOCIATE FLOW S PSC VELOCITY MAPPING INITIAL 88979 EM IV EM IV INPATIENT 5 OLY OLY CONSULT NEW/ESTAB [place] [address] [place] [address] [place] AYOOB AND ANGIOGRAP 5 MEDICAL HY CHEST SERV W/CONTRAS FOUNDATIO T/NONCONT N RAST CT ANGIO 77106 [place] AYOO[place] AND ABD&PLVIS 5 MEDICAL CNTRST [...] AT EQUIPME EQUIPME PRSC FLW RATE C-REACTIV 17041 LANDEN Guo PROTEIN 5 [facility] INC INC ANTIBODY 21902 LANDEN SCHUSTER DIPHTHERI 5 [facility] A INC INC ANTIBODY 39133 LANDEN SCHUSTER TETANUS 5 [facility] INC INC COLLECTIO 14522 LANDEN SCHUSTER N VENOUS 5 [facility] BLOOD INC INC VENIPUNCT URE NITRIC 37745 FERMÍN FERMÍN OXIDE 5 ALTHEA ALTHEA GAS DETERMINA TION HEADGEAR A7035 SH[facility] NEW USED 5 HOME HOME W/POSITIV MEDICAL MEDICAL E AIRWAY EQUIPME EQUIPME PRESSURE DEVICE SEDIMENTA 64556 LANDEN SCHUSTER TION RATE 5 [facility] RBC INC INC NON-AUTOM ATED HEMAGGLUT 94920 LANDEN SCHUSTER INATION 5 [facility] INHIBITIO INC INC N TEST ERICKA CULTURE 80469 LANDEN LANDEN FNGI 5 [facility] MOLD/YEAS INC INC T PRSMPTV OTH XCPT BLOOD CUL BACT 81175 LANDEN SCHUSTER XCPT 5 [facility] URINE INC INC BLOOD/STO OL AEROBIC ISOL CYANOCOBA 22891 LANDEN SCHUSTER JOSE RAFAEL 5 [facility] VITAMIN INC INC B-12 PERCUTANE 24022 FERMÍN FERMÍN OUS TESTS 5 ALTHEA ALTHEA W/ALLERGE PHYLICIA EXTRACTS BRNCDILAT 80410 FERMÍN FERMÍN RSPSE 5 [place]THE[place] ALTHEA SPMTRY PRE&POST- BRNCDILAT ADMN PRESSURIZ 89748 FERMÍN FERMÍN ED/NONPRE 5 [place]THE[place] SSURIZED INHALATIO N TREATMENT 25 48074 LANDEN SCHUSTER HYDROXY 5 [facility] INCLUDES INC INC FRACTIONS IF PERFORMED RADIOLOGI 57570 [facility] EXAM 5 MEDICAL BELINDA CHEST 2 IMAGING VIEWS ASS FRONTAL&L ATERAL BLOOD 64050 LANDEN SCHUSTER COUNT 5 [facility] COMPLETE INC INC AUTO&AUTO DIFRNTL WBC SMR PRIM 52702 LANDEN SCHUSTER SRC 5 [facility] GRAM/GIEM INC INC SA STAIN BCT FUNGI/ELPIDIO L COMPREHEN 44831 LANDEN SCHUSTER SIVE 5 [facility] METABOLIC INC INC PANEL FULL FACE A7030 SHAQ SHAQ MASK 5 HOME HOME USED MEDICAL MEDICAL W/POS EQUIPME EQUIPME ARWAY PRESS DEVICE EA ADMN SET A7005 YOUR YOUR W/SM VOL 5 PHARMACY [facility] NEBULIZ[facility] NON-DISPB L TUBING A7037 [facility] NEW USED WITH 5 HOME HOME POSITIVE MEDICAL MEDICAL AIRWAY EQUIP[place] [address] LANDEN SCHUSTER THYROID 5 [facility] STIMULATI INC INC NG HORMONE TSH ANTIBODY 70784 LANDEN LANDEN BACTERIUM 5 [facility] NOT INC INC ELSEWHERE SPECIFIED ANTIBODY 61342 LANDEN SCHUSTER RUBELLA 5 [facility] INC INC COMPLEMEN 58899 LANDEN SCHUSTER T TOTAL 5 [facility] [place] [address] LANDEN SCHUSTER FREE 5 [facility] [place] [address] LANDEN SCHUSTER GAMMAGLOB 5 [facility] ULIN IGE INC INC GAMMAGLOB 31401 LANDEN SCHUSTER ULIN 5 [facility] IMMUNOGLO INC INC BULIN SUBCLASSE S O2 CONC 1 E1390 [facility] [place] 4 HOME HOME 85%/>02 MEDICAL MEDICAL CONC AT EQUIPME EQUIPME PRSC FLW RATE O2 CONC 1 E1390 [facility] [place] 4 HOME HOME 85%/>02 MEDICAL MEDICAL CONC AT EQUIPME EQUIPME PRSC FLW RATE O2 CONC 1 E1390 [facility] NEW [facility] PORT 4 HOME HOME 85%/>02 MEDICAL MEDICAL CONC AT EQUIPME EQUIPME PRSC FLW RATE PRESSURIZ 93587 FERMÍN FERMÍN ED/NONPRE 4 [place] SSURIZED INHALATIO N TREATMENT BRNCDILAT 94008 FERMÍN FERMÍN RSPSE 4 [place] SPMTRY PRE&POST- BRNCDILAT ADMN O2 CONC 1 E1390 [facility] [place] 4 HOME HOME 85%/>02 MEDICAL MEDICAL CONC AT EQUIPME EQUIPME PRSC FLW RATE O2 CONC 1 E1390 [facility] [place] 4 HOME HOME 85%/>02 MEDICAL MEDICAL CONC AT EQUIPME EQUIPME PRSC FLW RATE O2 CONC 1 E1390 [facility] [place] 4 HOME HOME 85%/>02 MEDICAL MEDICAL CONC AT EQUIPME EQUIPME PRSC FLW RATE O2 CONC 1 E1390 [facility] [place] 4 HOME HOME 85%/>02 MEDICAL MEDICAL CONC AT EQUIPME EQUIPME PRSC FLW RATE O2 CONC E1390 [facility] [place] 4 HOME HOME 85%/>02 MEDICAL MEDICAL CONC AT EQUIPME EQUIPME PRSC FLW RATE CYSTO 39266 [facility] SM[facility] W/SIMPLE 4 [facility] LIZZY REMOVAL ADULT & STONE & PED STENT ECG 21100 PEDRO RICHEY RICHEY PEDRO ROUTINE 4 MD ECG CONSULTIN W/LEAST G SRV 12 LDS I&R ONLY O2 CONC 1 E1390 [facility] [place] 4 HOME HOME 85%/>02 MEDICAL MEDICAL CONC AT EQUIPME EQUIPME [facility] FLW RATE CYSTO 88991 CENTRAL SMITH W/URETERO 4 [facility] BALL SCOPY ADULT & W/LITHOTR PED IPSY ANES 54685 [facility] JOINER CHAVEZ TRURL 4 ANESTHESI FRAGMNTJ A GROUP MANJ&/RMV PS L URETERAL CALCULUS CYSTO 52244 CENTRAL SMITH W/INSERT 4 [facility] BALL URETERAL ADULT & STENT PED DILATION 61809 CENTRAL SMITH NEPHROSTO 4 [facility] BALL MY/URETER ADULT & /URETHRA PED RS&I COMPREHEN 62031 LANDEN SCHUSTER SIVE 4 [facility] METABOLIC INC INC PANEL GAMMAGLOB 23489 LANDEN SCHUSTER ULIN 4 [facility] IMMUNOGLO [place] [address] LANDEN SCHUSTER GAMMAGLOB 4 [facility] [place] [address] LANDEN SCHUSTER FREE 4 [facility] [place] [address] LANDEN SCHUSTER THYROID 4 [facility] STIMULATI INC INC NG HORMONE TSH ANTIBODY 69059 LANDEN SCHUSTER BACTERIUM 4 [facility] NOT INC INC ELSEWHERE SPECIFIED RADIOLOGI 71143 LANDEN SCHUSTER C EXAM 4 [facility] CHEST 2 INC INC VIEWS FRONTAL&L ATERAL BLOOD 95889 LANDEN SCHUSTER COUNT 4 [facility] COMPLETE INC INC AUTO&AUTO DIFRNTL WBC 25 89521 LANDEN SCHUSTER HYDROXY 4 [facility] INCLUDES INC INC FRACTIONS IF PERFORMED CYANOCOBA 79702 LANDEN SCHUSTER JOSE RAFAEL 4 [facility] VITAMIN INC INC B-12 C-REACTIV 70611 LANDEN SCHUSTER E PROTEIN 4 [facility] INC INC SEDIMENTA 13454 LANDEN SCHUSTER TION RATE 4 [facility] RBC INC INC NON-AUTOM ATED BRNCDILAT 30221 FERMÍN FERMÍN RSPSE 4 [place] SPMTRY PRE&POST- BRNCDILAT ADMN PRESSURIZ 51627 FERMÍN FERMÍN ED/NONPRE 4 [place] SSURIZED [...] DEVICE TUBING A7037 [facility] NEW USED WITH 3 HOME HOME POSITIVE MEDICAL MEDICAL AIRWAY EQUIPME EQUIPME PRESSURE DEVICE FULL FACE A7030 SHAQ NEW MASK 3 HOME HOME USED MEDICAL MEDICAL W/POS EQUIPME EQUIPME ARWAY PRESS DEVICE EA O2 CONC 1 E1390 [facility] NEW DEL [...] YOUR YOUR W/SM VOL 3 PHARMACY PHARMACY [facility] NEBULIZR NON-DISPB L PRESSURIZ 49118 FERMÍN FERMÍN ED/NONPRE 3 [place] SSURIZED INHALATIO N TREATMENT BRNCDILAT 19558 FERMÍN FERMÍN RSPSE 3 [place] SPMTRY PRE&POST- BRNCDILAT ADMN O2 CONC 1 E1390 [facility] SHAQ DEL [...] AT EQUIPME EQUIPME PRSC FLW RATE INJECTION J2710 [facility] 3 N N NEOSTIGMI [facility] NE HOSPITA HOSPITA METHYLSUL FATE UP TO 0.5 MG INJECTION J3010 [facility] FENTANYL 3 N N CITRATE [facility] 0.1 MG HOSPITA HOSPITA ANES 60343 [place] XTRPRTL 3 ANESTHESI AN LOWER ABD A GROUP UR TRACT PS RENAL DON NFRCT CUSHN A7032 [facility] NASAL 3 HOME HOME [facility] INTERFACE EQUIPME EQUIPME REPLACEME NT ONLY EACH INJECTION J1580 [facility] 3 N N GARAMYCIN [facility] HOSPITA HOSPITA GENTAMICI N UP TO 80 MG INJECTION J2370 [facility] 3 N N PHENYLEPH [facility] RINE HCL HOSPITA HOSPITA UP TO 1 ML INJECTION J2405 [facility] 3 N N ONDANSETR [facility] ON HCL HOSPITA HOSPITA PER 1 MG INJECTION J1100 [facility] 3 N N DEXAMETHO [facility] SONE HOSPITA HOSPITA SODIUM PHOSPHATE 1 MG INJECTION J2001 [facility] 3 N N LIDOCAINE [facility] HCL HOSPITA HOSPITA INTRAVENO US INFUS 10 MG PYELOPLAS 78790 [facility] TY SIMPLE 3 N N [facility] HOSPITA HOSPITA LAPAROSCO 57508 CENTRAL SMITH PY 3 [place] LIZZY RADICAL ADULT & NEPHRECTO PED MY URNLS DIP 76405 [facility] 3 N N STICK/TAB [facility] LET HOSPITA HOSPITA REAGENT AUTO MICROSCOP Y BLOOD 27917 [facility] COUNT 3 N N COMPLETE [facility] AUTO&AUTO HOSPITA HOSPITA DIFRNTL WBC ECG 18203 [facility] ROUTINE 3 N N ECG [facility] W/LEAST HOSPITA HOSPITA 12 LDS TRCG ONLY W/O I&R COMPREHEN 96953 [facility] SIVE 3 N N METABOLIC [facility] PANEL HOSPITA HOSPITA COLLECTIO 68742 [facility] N VENOUS 3 N N BLOOD [facility] V[place]IPUNCT [place] [address] PATHOLOGY CRISTINA SURG 3 & OLY PATHOLOGY CYTOLOGY LAB GROSS&MANJIT ROSCOPIC EXAM SPECIAL 25508 PATHOLOGY CRISTINA STAIN 3 & OLY GROUP 1 CYTOLOGY MICROORGA LAB NISMS I&[place] [address] [facility] INFUSION 3 [facility] THERAPY INC INC PROPHYLAX IS/DX EA HOUR ANES 30733 [facility] UPPER GI 3 ANESTH ENDOSCOPY OF THE PROXIMAL BLUE TO DUODENUM EGD 81876 [facility] TRANSORAL 3 [facility] BIOPSY INC INC SINGLE/MU LTIPLE URINE 28454 [facility] TEST INC [place] [address] [facility] SCH[facility] INFUSION 3 [facility] THERAPY/P INC INC ROPHYLAXI S /DX 1ST TO 1 HR O2 CONC 1 E1390 [facility] NEW DEL PORT 3 HOME HOME 85%/>02 MEDICAL MEDICAL CONC AT EQUIPME EQUIPME PRSC FLW RATE DSTR 10164 JEANNETTE Tang VASCELLO NROLYTC 3 VASCELLO ALONDRA MCGILL MD PSC PARVERTEB FCT ADDL CRVCL/THO RA DSTR 52492 ERICA VASCELLO NROLYTC 3 VASCELLO ALONDRA NANO AGEE PSC PARVERTEB FCT SNGL CRVCL/THO RA MODERATE 95461 ERICA VASCELLO SEDATJ 3 VASCELLO ALONDRA SAME PSC PHYS/QHP 5/>YRS INIT 30 MIN SPMTRY 24970 FERMÍN FERMÍN W/VC 3 ALTHEA ALTHEA EXPIRATOR Y ANA MARIA W/WO MXML VOL VNTJ CHEMODERV 28883 [facility] JONEL ATE 3 NEUROLOGY RAFAEL FACIAL/TR CENTER IGEM/CERV BRIANNA MUSC MIGRAINE BOTULINUM J0585 ORTHODOX JONEL TOXIN 3 NEUROLOGY [facility]FAEL TYPE A CENTER PER UNIT BRIANNA O2 CONC 1 E1390 SHAQ NEW DEL PORT 3 HOME HOME 85%/>02 MEDICAL MEDICAL CONC AT EQUIPME [place]QUIPME [place]S [place]ATE NJX 60992 ERICA VASCELLO DX/THER 3 VASCELLO ALONDRA AGT PVRT PSC FACET JT CRV/THRC 2ND LEVEL NJX 19552 ERICA VASCELLO DX/THER 3 VASCELLO ALONDRA AGT PVRT PSC FACET JT CRV/THRC 1 LEVEL MODERATE 21305 ERICA VASCELLO SEDATJ 3 VASCELLO ALONDRA SOULEYMANE AGEE PSC PHYS/QHP 5/>YRS INIT 30 MIN O2 CONC 1 E1390 SHAQ NEW DEL PORT 2 HOME HOME 85%/>02 MEDICAL MEDICAL CONC AT EQUIPME EQUIPME [facility] FLW RATE O2 CONC 1 E1390 SHAQ NEW DEL PORT 2 HOME HOME 85%/>02 MEDICAL MEDICAL CONC AT EQUIPME EQUIPME PRS FLW RATE ELECTRICA A4595 J & L J & L L 2 HOME HOME STIMULATO MEDICAL MEDICAL R EQUIPMENT EQUIPMENT SUPPLIES 2 LEAD PER MONTH FULL FACE A7030 SHAQ NEW MASK 2 HOME HOME USED MEDICAL MEDICAL W/POS EQUIPME EQUIPME ARWAY PRESS DEVICE EA HEADGEAR A7035 SHAQ NEW USED 2 HOME HOME W/POSITIV MEDICAL MEDICAL E AIRWAY EQUIPME EQUIPME PRESSURE DEVICE BRNCDILAT 81938 FERMÍN KOVACS RSPSE 2 [place] SPMTRY PRE&POST- BRNCDILAT ADMN PRESSURIZ 48430 FERMÍN GARCIAHBURN ED/NONPRE 2 [place] SSURIZED INHALATIO N TREATMENT BOTULINUM J0585 ORTHODOX JONEL TOXIN 2 NEUROLOGY RAFAEL TYPE A CENTER PER UNIT BRIANNA CYCLIC 56022 [facility] CITRULLIN 2 DIAGNOSTI DIAGNOSTI ATED CS CS PEPTIDE ANTIBODY C-REACTIV 65598 [facility] E PROTEIN 2 DIAGNOSTI DIAGNOSTI CS CS COLLECTIO 64932 [facility] N VENOUS 2 DIAGNOSTI DIAGNOSTI BLOOD CS CS VENIPUNCT URE SEDIMENTA 30484 [facility] TION RATE 2 DIAGNOSTI DIAGNOSTI RBC CS CS AUTOMATED CREATINE 19843 [facility] KINASE 2 DIAGNOSTI DIAGNOSTI TOTAL CS CS O2 CONC 1 E1390 SHAQ NEW DEL PORT 2 HOME HOME 85%/>02 MEDICAL MEDICAL CONC AT EQUIPME EQUIPME PRSC FLW RATE IMMUNOASS 73042 [facility] AY 2 DIAGNOSTI DIAGNOSTI ANALYTE CS CS, [place] [address] LANDEN SCHUSTER GAMMAGLOB 2 [facility] [place] [address] LANDEN SCHUSTER THYROID 2 [facility] STIMULATI INC INC NG HORMONE TSH GAMMAGLOB 84568 LANDEN SCHUSTER ULIN 2 [facility] IMMUNOGLO INC INC BULIN SUBCLASSE S 25 15558 LANDEN SCHUSTER HYDROXY 2 [facility] INCLUDES INC INC FRACTIONS IF PERFORMED BLOOD 47927 LANDEN SCHUSTER COUNT 2 [facility] COMPLETE INC INC AUTO&AUTO DIFRNTL WBC RADIOLOGI 16693 LANDEN SCHUSTER C EXAM 2 [facility] CHEST 2 INC INC VIEWS FRONTAL&[place] [address] LANDEN SCHUSTER GAMMAGLOB 2 [facility] ULIN IGA INC INC IGD IGG IGM EACH PRESSURIZ 86174 FERMÍN FERMÍN ED/NONPRE 2 [place] SSURIZED INHALATIO N TREATMENT BRNCDILAT 67498 FERMÍN FERMÍN RSPSE 2 [place] SPMTRY PRE&POST- BRNCDILAT ADMN DEMO&/GABI 15397 FERMÍN FERMÍN L OF PT 2 [place] UTILIZ AERSL GEN/NEB/I NHLR/IP ADMN SET A7005 MT MED MT MED W/SM VOL 2 EQUIPMENT EQUIPMENT NONFILTR INC INC NEBULIZR NON-DISPB L NEBULIZER E0570 MT MED MT MED WITH 2 EQUIPMENT EQUIPMENT COMPRESSO INC INC R INJECTION 89276 ERICA VASCELLO 2 VASCELLO ALONDRA SINGLE/ML MD SCHWARTZ T TRIGGER POINT 3/> MUSCLES FLUOROSCO 29597 ERICA VASCELLO PIC 2 VASCELLO ALONDRA GUIDANCE MD SCHWARTZ NEEDLE PLACEMENT ADD ON IIV3 78605 LANDEN SCHUSTER VACCINE 2 [facility] VIRUS 0.5 ML DOSAGE IM USE CREATININ 66740 LANDEN SCHUSTER E BLOOD 2 [place] [address] LANDEN SCHUSTER UREA 2 [facility] NITROGEN INC INC QUANTITAT JADON UROGRAPHY 40252 [place] IV W/WO 2 MEDICAL BELINDA KUB W/WO IMAGING TOMOGRAPH ASS Y CONTINUOU E0601 SHAQ NEW S 2 HOME HOME POSITIVE MEDICAL MEDICAL AIRWAY EQUIPME EQUIPME PRESSURE DEVICE CYSTO 41698 [facility] W/SIMPLE 2 [place] LIZZY REMOVAL ADULT & STONE & PED STENT CYSTO 76931 [facility] W/URETERO 2 [place] LIZZY SCOPY ADULT & W/RMVL/MA PED [place] STONES ANES 96787 [place] AWAD TRURL 2 ANESTHESI AN FRAGMNTJ A GROUP MANJ&/RMV PS L URETERAL CALCULUS CYSTO 21732 [facility] W/INSERT 2 [place] LIZZY URETERAL ADULT & STENT PED DILATION 81925 [facility]OSTO 2 [facility] LI[facility] MY/URETER ADULT & /URETHRA PED RS&I LEVEL III 13124 PATHOLOGY SALAZAR VAN SURG 2 & PATHOLOGY CYTOLOGY LAB GROSS&MANJIT ROSCOPIC EXAM ANES 93900 CHRISTIE MENDEZ MEDHAT LITHOTRP 2 ANESTHESI XTRCORP A GROUP SHOCK PS WAVE W/O WATER BATH FLUOROSCO 73614 [facility] PY SPX UP 2 [facility] LIZZY TO 1 ADULT & HOUR PED PHYS/QHP TIME CYSTO 84972 [facility] W/INSERT 2 [facility] BALL URETERAL ADULT & STENT PED ECG 22929 PEDRO RICHEY RICHEY PEDRO ROUTINE 2 MD ECG CONSULTIN W/LEAST G SERV 12 LDS I&R ONLY LITHOTRIP 70589 [facility] SY 2 [facility] LIZZY XTRCORP ADULT & SHOCK PED WAVE RADEX 56095 [facility] [place] SCALF OLY ABDOMEN 1 2 RADIOLOGY ANTEROPOS TERIOR VIEW BLOOD 58968 LANDEN SCHUSTER COUNT 2 [facility] COMPLETE INC INC AUTO&AUTO DIFRNTL WBC URNLS DIP 87630 LANDEN SCHUSTER 2 [facility] STICK/TAB INC INC LET REAGENT AUTO MICROSCOP Y URINE 36285 LANDEN SCHUSTER 2 [facility] TEST INC INC VISUAL COLOR CMPRSN METHS CONTINUOU E0601 SHAQ ORDONEZRELL S 2 HOME HOME POSITIVE MEDICAL MEDICAL AIRWAY EQUIPME EQUIPME PRESSURE DEVICE 3D 93419 LANDEN SCHUSTER RENDERING 2 [facility] INC INC W/INTERP& POSTPROC DIFF WORK STATION AMB A0427 [facility] 2 [facility]ANCE AMBULANCE ALS SERVICE SERVICE EMERGENCY TRANSPORT LEVEL 1 CULTURE 35155 LANDEN SCHUSTER BACTERIAL 2 [facility] INC INC QUANTTATI VE COLONY COUNT URINE CULTURE 91886 LANDEN SCHUSTER BCT 2 [facility] ISOL&PRSM INC INC PTV ID ISOLATE EA URINE URINE 68491 LANDEN SCHUSTER 2 [facility] TEST INC INC V[place] [address] LANDEN SCHUSTER AMYLASE 2 [facility] INC INC SUSCEPTIB 48756 LANDEN SCHUSTER LTY STDY 2 [facility] ANTIMICRB INC INC IAL MICRO/AGA R DILUTJ GROUND A0425 [facility] 2 AMBULANCE AMBULANCE PER SERVICE SERVICE STATUTE MILE COMPREHEN 70822 LANDEN SCHUSTER SIVE 2 [facility] METABOLIC INC INC PANEL URNLS DIP 41564 LANDEN SCHUSTER 2 [facility] STICK/TAB INC INC LET REAGENT AUTO MICROSCOP Y BLOOD 26335 LANDEN SCHUSTER COUNT 2 [facility] COMPLETE INC INC AUTO&[place] [address] LANDEN SCHUSTER LIPASE 2 [facility] INC INC THERAPEUT 33894 LANDEN SCHUSTER IC 2 [facility] INJECTION INC INC IV PUSH EACH NEW DRUG THER 68573 LANDEN SCHUSTER PROPH/DX 2 [facility] NJX IV INC INC PUSH SINGLE/1S T SBST/[place] [address] LANDEN SCHUSETR ABDOMEN & 2 [facility] PELVIS INC INC W/O CONTRAST MATERIAL CONTINUOU E0601 SHAQ SHAQ S 2 HOME HOME POSITIVE MEDICAL MEDICAL AIRWAY EQUIPME EQUIPME PRESSURE DEVICE FILTER A7038 SHAQ SHAQ DISPBL 2 HOME HOME USED MEDICAL MEDICAL W/POS EQUIPME EQUIPME ARWAY PRESSURE DEVICE TUBING A7037 SHAQ ORDONEZRELL USED WITH 2 HOME HOME POSITIVE MEDICAL MEDICAL AIRWAY EQUIPME EQUIPME PRESSURE DEVICE CONTINUOU E0601 SHAQ SHAQ S 2 HOME HOME POSITIVE MEDICAL MEDICAL AIRWAY EQUIPME EQUIPME PRESSURE DEVICE CONTINUOU E0601 SHAQ SHAQ S 2 HOME HOME POSITIVE MEDICAL MEDICAL AIRWAY EQUIPME EQUIPME PRESSURE DEVICE DSTR 77246 ERICA ERICA NROLYTC 2 VASCELLO VASJESSIE ROSAST ADDL CRVCL/THO RA DSTR 89652 ERICA ERICA NROLYTC 2 VASCELLO VASJESSIE SCHWARTZ MD [facility] FCT SNGL CRVCL/THO RA CONTINUOU E0601 SHAQ NEW S 2 HOME HOME POSITIVE MEDICAL MEDICAL AIRWAY EQUIPME EQUIPME PRESSURE DEVICE NJX 33828 ERICA ERICA DX/THER 2 VASCELLO VASCELLO AGT PVRT MD EFREN AGEE PSC FACET JT CRV/THRC 1 LEVEL NJX 63571 ERICA ERICA DX/THER 2 VASCELLO VASCELLO AGT PVRT MD EFREN AGEE PSC FACET JT CRV/THRC 2ND LEVEL CONTINUOU E0601 SHAQ NEW S 2 HOME HOME POSITIVE MEDICAL MEDICAL AIRWAY EQUIPME EQUIPME PRESSURE DEVICE NJX 30195 ERICA ERICA DX/THER 2 VASCELLO VASCELLO AGT PVRT MD EFREN AGEE PSC FACET JT CRV/THRC 1 LEVEL NJX 69724 ERICA ERICA DX/THER 2 VASCELLO VASCELLO AGT PVRT MD EFREN AGEE PSC FACET JT CRV/THRC 2ND [facility]EL [facility] NEW NASAL 2 HOME HOME MASK MEDICAL MEDICAL INTERFACE EQUIPME EQUIPME REPLACEME NT ONLY EACH MODERATE 42548 ERICA ERICA SEDATJ 2 VASCELLO VASCELLO SOULEYMANE AGEE [facility] PHYS/QHP 5/>YRS INIT 30 MIN DSTR 40450 ERICA ERICA NROLYTC 2 VASCELLO VASCELLO NANO SCHWARTZ MD [facility] PARVERTEB FCT ADDL LMBR/SACR AL DSTR 25873 ERICA ERICA NROLYTC 2 VASCELLO VASCELLO NANO SCHWARTZ MD [facility] PARVERTEB FCT SNGL LMBR/SACR AL CONTINUOU E0601 SHAQ NEW S 2 HOME HOME POSITIVE MEDICAL MEDICAL AIRWAY EQUIPME EQUIPME PRESSURE DEVICE DSTR 49828 ERICA ERICA NROLYTC 2 VASCELLO VASCELLO NANO SCHWARTZ MD [facility] PARVERTEB FCT ADDL LMBR/SACR AL DSTR 57489 ERICA ERICA NROLYTC 2 VASCELLO VASCELLO NANO SCHWARTZ MD [facility] PARVERTEB FCT SNGL LMBR/SACR AL RADIOLOGI 19843 [facility] 2 MEDICAL MEDICAL EXAMINATI IMAGING IMAGING ON CHEST ASS ASS SINGLE VIEW FRONTAL BASIC 07068 LANDEN SCHUSTER METABOLIC 2 [facility] PANEL INC INC CALCIUM TOTAL CREATINE 38912 LANDEN SCHUSTER KINASE MB 2 [facility] FRACTION INC INC ONLY BLOOD 90857 LANDEN SCHUSTER COUNT 2 [facility] COMPLETE INC INC AUTO&[place] [address] LANDEN SCHUSTER TROPONIN 2 [facility] QUANTITAT INC INC JADON ECG 32818 LANDEN SCHUSTER ROUTINE 2 [facility] W/LEAST P P 12 LDS I&R ONLY CREATINE 91540 LANDEN SCHUSTER KINASE 2 [facility] TOTAL INC INC NJX 87949 ERICA ERICA DX/THER 2 VASCELLO VASCELLO AGT PVRT MD EFREN AGEE PSC FACET JT LMBR/SAC 1 LEVEL NJX 68839 ERICA ERICA DX/THER 2 VASCELLO VASCELLO AGT PVRT MD EFREN AGEE PSC FACET JT LMBR/SAC 2ND LEVEL NJX 06387 ERICA ERICA DX/THER 2 VASCELLO VASCELLO AGT PVRT MD EFREN AGEE PSC FACET JT LMBR/SAC 3+ LEVEL CUSHN A7032 SHAQ NEW NASAL 2 [...] EA TUBING A7037 SHAQ NEW USED WITH 1 HOME HOME POSITIVE MEDICAL MEDICAL AIRWAY EQUIPME EQUIPME PRESSURE DEVICE CONTINUOU E0601 SHAQ NEW S 1 HOME HOME POSITIVE MEDICAL MEDICAL AIRWAY EQUIPME EQUIPME PRESSURE DEVICE HEADGEAR A7035 SHAQ NEW USED 1 HOME HOME W/POSITIV MEDICAL MEDICAL E AIRWAY EQUIPME EQUIPME PRESSURE DEVICE HUMDIFIR E0562 SHAQ NEW HEATED 1 HOME HOME USED MEDICAL MEDICAL W/POS EQUIPME EQUIPME ARWAY PRESSURE DEVICE POLYSOM 07620 LANDEN SCHUSTER 6/>YRS 1 [facility] SLEEP 4/> INC INC ADDL SHWETHA ATTND IIV3 28877 LANDEN SCHUSTER VACCINE 1 [facility] VIRUS 0.5 ML DOSAGE IM USE RADEX 74244 [facility] J[facility] WRIST 1 MEDICAL BELINDA COMPLETE IMAGING MINIMUM 3 ASS VIEWS WRIST L3908 SHAQ NEW HAND 1 HOME HOME ORTHOSIS MEDICAL MEDICAL EXT EQUIPME EQUIPME CONTROL COCK-UP PREFAB RADEX 59274 [facility] JOVANNY WRIST 1 MEDICAL BELINDA COMPLETE IMAGING MINIMUM 3 ASS VIEWS RADIOLOGI 69153 [place] C 1 MEDICAL BELINDA EXAMINATI IMAGING ON KNEE ASS 1/2 VIEWS RADIOLOGI 30909 [place] C 1 MEDICAL BELINDA EXAMINATI IMAGING ON KNEE 3 ASS VIEWS 3D 48653 [place] RENDERING 1 MEDICAL BELINDA IMAGING W/INTERP& ASS POSTPROC DIFF WORK STATION RADEX 05879 [facility] WRIST 1 MEDICAL BELINDA COMPLETE IMAGING MINIMUM 3 ASS VIEWS CLTX DSTL 86047 GRISELDA SALGADO BAB RADIAL 1 EMERGENCY FX/EPIPHY SERVICES SL SEP W/[place] [address] [place] MAXILLOFA 1 MEDICAL BELINDA CIAL W/O IMAGING CONTRAST ASS MATERIAL SLINGS A4565 [facility] [place] [address] [place] [address] [facility] PETTEY 1 PHYSICIAN JAM RADIAL&UL S GROUP OJCE SHAFT FRACTURES W/O MAN RADEX 56358 LANDEN SCHUSTER WRIST 2 1 [place] [address] LANDEN SCHUSTER INFUSION 1 [facility] THER INC INC PROPH ADDL [place] L [place] [address] LANDEN SCHUSTER INFUSION 1 [facility] THERAPY/P INC INC ROPHYLAXI S /DX 1ST TO 1 HR BLOOD 63561 LANDEN SCHUSTER COUNT 0 [facility] COMPLETE INC INC AUTO&AUTO DIFRNTL WBC MRI BRAIN 93246 JAZMINE Mcgrath JOVANNY BRAIN 0 JOVANNY BELINDA STEM W/O CONTRAST MATERIAL C-REACTIV 26604 LANDEN SCHUSTER E PROTEIN 0 [facility] INC INC ANTINUCLE 97073 LANDEN SCHUSTER AR 0 [facility] ANTIBODIE INC INC S CARLOS CREATINE 17910 LANDEN LANDEN KINASE 0 [facility] TOTAL INC INC PROTEIN 21983 LANDEN SCHUSTER ELECTROPH 0 [facility] ORETIC INC INC FRACTJ&QU ANTJ SERUM RHEUMATOI 36247 LANDEN SCHUSTER D FACTOR 0 [facility] QUANTITAT INC INC JADON SCREENING G0202 [place] 0 MEDICAL BELINDA MAMMOGRAP IMAGING HY JERRY ASS INCL CAD WHEN PERFORMD COMPUTER- 56866 [place] AIDED 0 MEDICAL BELINDA DETECTION IMAGING [place] [address] LANDEN LANDEN MAGNESIUM 0 [place] [address] LANDEN SCHUSTER FERRITIN 0 [facility] INC INC BLOOD 83055 LANDEN LANDEN COUNT 0 [facility] COMPLETE INC INC AUTO&AUTO DIFRNTL WBC IRON 62666 LANDEN SCHUSTER BINDING 0 [facility] CAPACITY INC INC POTASSIUM 07493 LANDENFRANCA SCHUSTER URINE 0 [place] [address] LANDEN SCHUSTER IRON 0 [facility] INC INC BASIC 01609 LANDEN SCHUSTER METABOLIC 0 [facility] [address] LANDEN SCHUSTER INFUSION 0 [facility] THERAPY INC INC PROPHYLAX IS/[place] [address] PATHOLOGY PATHOLOGY SURG 0 & & PATHOLOGY CYTOLOGY CYTOLOGY LAB LAB GROSS&MANJIT ROSCOPIC EXAM [ENDOSCOP 4836 LANDEN SCHUSTER IC] 0 [facility] POLYPECTO INC INC MY OF RECTUM ENDOSCOPI 4542 LANDEN SCHUSTER C 0 [facility] POLYPECTO INC INC MY OF LARGE INTESTINE URINE 11834 LANDEN SCHUSTER 0 [facility] TEST INC INC VISUAL COLOR CMPRSN METHS COLSC FLX 02819 SAMIA KELI ANT W/RMVL 0 MEDICAL OF TUMOR [place] [address] LANDEN SCHUSTER INFUSION 0 [facility] THERAPY/P INC INC ROPHYLAXI S /DX 1ST TO 1 HR IIV3 50177 LANDEN SCHUSTER VACCINE 0 [facility] VIRUS 0.5 ML DOSAGE IM USE BLOOD 23557 LANDEN SCHUSTER COUNT 0 [facility] COMPLETE INC INC AUTO&AUTO DIFRNTL WBC GONADOTRO 49451 LANDEN SCHUSTER PIN 0 [facility] [address] LANDEN SCHUSTER INFUSION 0 [facility] THERAPY/P INC INC ROPHYLAXI S /DX 1ST TO 1 HR EGD 58306 SAMIA DICKEY ANT TRANSORAL 0 MEDICAL BIOPSY SERV SINGLE/MU FOUNDATIO LTIPLE ESOPHAGOG 4516 LANDEN SCHUSTER ASTRODUOD 0 [facility] ENOSCOPY [place] [address] PATHOLOGY PATHOLOGY SURG 0 & & PATHOLOGY CYTOLOGY CYTOLOGY LAB LAB GROSS&[place] [address] LANDEN SCHUSTER INFUSION 0 [facility] THERAPY INC INC PROPHYLAX IS/DX EA HOUR SPECIAL 61228 PATHOLOGY PATHOLOGY STAIN 0 & & GROUP 1 CYTOLOGY CYTOLOGY MICROORGA LAB LAB [facility] I&R BLOOD 88566 LANDEN SCHUSTER COUNT 0 [facility] COMPLETE INC INC AUTO&AUTO DIFRNTL WBC BLOOD 02790 LANDEN MCKEONON COUNT 0 [facility] COMPLETE INC INC AUTO&AUTO DIFRNTL WBC POTASSIUM 95315 LANDEN SCHUSTER SERUM 0 [facility] PLASMA/[place] [address] CHRISTIE PETTY UPR W/WO 0 MEDICAL BELINDA GLUCOSE IMAGING W/SM ASS INTEST FOLLW-THR U RADEX 42554 LANDEN SCHUSTER UPPER GI 0 [facility] W/WO INC INC GLUCAGON/ DELAY IMAGES W/KUB BLOOD 92747 LANDEN SCHUSTER OCCULT 0 [facility] PEROXIDAS INC INC E ACTV QUAL FECES 1-3 SPEC BLOOD 92980 LANDEN SCHUSTER COUNT 0 [facility] COMPLETE INC INC AUTO&AUTO DIFRNTL WBC POTASSIUM 20297 LANDEN SCHUSTER SERUM 0 [facility] PLASMA/WH INC INC OLE BLOOD CYANOCOBA 35177 LANDEN SCHUSTER JOSE RAFAEL 0 [facility] VITAMIN INC INC B-12 [place] [address] LANDEN SCHUSTER FOLIC 0 [facility] [address] LANDEN LANDEN THYROID 0 [facility] STIMULATI INC INC NG HORMONE TSH ANESTHESI 12480 COMMUNITY [place], A HERNIA 9 ANESTH HAZEL A REPAIR OF THE [place] ABDOMEN NOS RPR 1ST 95820 LANDEN SCHUSTER INGUN 9 [facility] HRNA AGE INC INC 5 YRS/> INCARCERA SREE THERAPEUT 74967 LANDEN SCHUSTER IC 9 [facility] INJECTION [place] [address] LANDEN SCHUSTER INFUSION 9 [facility] THERAPY/P INC INC ROPHYLAXI S /DX 1ST TO 1 [place] [address] LANDEN SCHUSTER INFUSION 9 [facility] THERAPY INC INC PROPHYLAX IS/DX EA HOUR OTH & OPN 5304 LANDEN SCHUSTER REP 9 [facility] INDIRECT INC INC ING HERNIA W/GRAFT/P ROSTH BASIC 51976 LANDEN SCHUSTER METABOLIC 9 [facility] PANEL INC INC CALCIUM TOTAL BLOOD 75447 LANDEN SCHUSTER COUNT 9 [facility] COMPLETE INC INC AUTO&AUTO DIFRNTL WBC GONADOTRO 68595 LANDEN SCHUSTER PIN 9 [facility] CHORIONIC INC INC QUALITATI VE Encounters Encounter Start End Date Code Location Performer Type Date OFFICE 66081 [facility] HARPEL OUTPATIEN 7 7 PHYSICIAN T VISIT S GROUP 15 MINUTES [facility] INC T OFFICE 80653 [facility] HABASH OUTPATIEN 7 7 T NEW 45 MINUTES OFFICE 07073 [facility] OUTPATIEN 7 7 PHYSICIAN T VISIT S GROUP 25 MINUTES [facility] - [facility] 7 [facility] OUTPATIEN INC T OFFICE 30274 [facility] OUTPATIEN 7 7 [facility] T VISIT 5 INC MINUTES OFFICE 56140 [facility] ALLRAN JR OUTPATIEN 7 7 PHYSICIAN T NEW 20 S GROUP MINUTES [facility] 7 [facility]PAT[facility] INC T [facility] 7 7 [facility] T [facility] - 7 7 [facility] 7 PHYSICIAN E S GROUP MEDICINE NEW PATIENT 40-64YRS [facility] - 7 7 [facility] OUTPATIEN INC T OFFICE 18211 [facility] RICHARD OUTPATIEN 7 7 PHYSICIAN T VISIT S GROUP 40 MINUTES [facility] - 7 7 [facility] T [facility] - 7 7 [facility] - 7 7 [facility] OUTPATIEN INC T EMERGENCY 97771 [facility] 7 7 [facility] DEPARTMEN INC T VISIT HIGH/URGE NT SEVERITY [facility] 7 7 [facility] OUTPATIEN [facility] T OFFICE 19452 MALIK PIZARRO OUTPATIEN 7 7 FAMILY T NEW 30 CARE MINUTES CENTER OFFICE 27914 MEÑO VEEPATIEN 7 7 T VISIT 15 MINUTES [facility] LANDEN - 7 7 [facility] OUTPATIEN [facility] UNIVERSIT - 6 6 [facility] T OFFICE 47053 [facility] FITZPATRI OUTPATIEN 6 6 NURSE CK BING T VISIT PRACTITIO 40 NER GR MINUTES OFFICE 38915 [facility] FITZPATRI CONSULTAT 6 6 NURSE CK BING ION PRACTITIO NEW/ESTAB NER GR PATIENT 60 MIN [facility] LANDEN - 6 6 [facility] 46346 MEÑO VEEPATIEN 6 6 OLY OLY T VISIT 15 MINUTES EMERGENCY 96307 KRISS MONTERROSO DEPT 5 5 JOSS JOSS VISIT HIGH SEVERITY& THREAT [facility] EMERGENCY 59109 EDISON ATKINSON DEPT 5 5 VISIT HIGH SEVERITY& THREAT [facility] LANDEN - 5 5 [facility] T OFFICE 41235 FERMÍN KOVACS OUTPATIEN 5 5 ALTHEA ALTHEA T VISIT 40 MINUTES OFFICE 98760 MEÑO VEEPATILALITA 4 4 LOY OLY T VISIT 15 MINUTES OFFICE 16154 MEÑO BAILEY 4 4 OLY OLY T VISIT 15 MINUTES OFFICE 43316 MEÑO BAILEY 4 4 OLY OLY T VISIT 15 MINUTES OFFICE 35076 MEÑO BAILEY 4 4 OLY OLY T VISIT 15 MINUTES OFFICE 44298 FERMÍN KOVACS OUTPATIEN 4 4 ALTHEA ALTHEA T VISIT 40 MINUTES OFFICE 97713 [facility] CONSULTAT 4 4 CHRISTIE LIZZY ION ADULT & NEW/ESTAB PED PATIENT 40 MIN EMERGENCY 20027 [facility] DEPT 4 4 EMERGENCY MANJIT VISIT SERVICES HIGH SEVERITY& THREAT [facility] [place] - 4 4 [facility] OUTPATIEN INC T OFFICE 05617 FERMÍN KOVACS OUTPATIEN 4 4 ALTHEA ALTHEA T VISIT 40 MINUTES OFFICE 53282 MISSARY MEÑO OUTPATIEN 3 3 OLY OLY T VISIT 15 MINUTES OFFICE 93793 MEÑO WILDER OUTPATIEN 3 3 OLY OLY T VISIT 15 MINUTES OFFICE 46016 FERMÍN KOVACS OUTPATIEN 3 3 ALTHEA ALTHEA T VISIT 40 MINUTES OFFICE 28999 ARTHRITIS MD ARTEMIO OUTPATIEN 3 3 AND MAN T VISIT OSTEOPORO 15 SIS C MINUTES HOME [facility], 3 3 HOME OUTPATIEN HEALTH T HOME 57621 [facility] VIS[facility] EST 3 3 HOME PT HEALTH MOD-HI SEVERITY 40 MINUTES HOME 68659 [facility] VISIT EST 3 3 HOME PT HEALTH MOD-HI SEVERITY 40 MINUTES HOME 97561 [facility] EST 3 3 HOME PT HEALTH MOD-HI SEVERITY 40 MINUTES HOME 77580 [facility] V[facility] EST 3 3 HOME PT HEALTH MOD-HI SEVERITY 40 MINUTES [facility] [place] [facility] 24232 [facility] 3 PHYSICIAN ALIREZA T NEW 30 S GROUP MINUTES OFFICE 36592 FERMÍN KOVACS OUTPATIEN 3 3 ALTHEA OH T VISIT 25 MINUTES OFFICE 08141 ZACARIAS REMY OUTPATILALITA 3 3 NEUROLOGY [facility] T VISIT CENTER 25 BRIANNA MINUTES OFFICE 64644 FERMÍN KOVACS OUTPATIEN 2 2 ALTHEA OH T VISIT 25 MINUTES OFFICE 29322 ARTHRITIS MD ARTEMIO CONSULTAT 2 2 AND MAN ION OSTEOPORO NEW/ESTAB SIS C PATIENT 60 MIN [facility] [place] [facility] T OFFICE 11871 FERMÍN KOVACS OUTPATIEN 2 2 ALTHEA ALTHEA T NEW 60 MINUTES OFFICE 05037 ERICA VASCELLO OUTPATIEN 2 2 VASCELLO ALONDRA T VISIT [facility] 25 MINUTES [facility] [place] - 2 2 [facility] INC T OFFICE 77130 ORTHODOXSue REMY OUTPATIEN 2 2 HEALTH RAFAEL T VISIT MEDICAL 25 GROUP MINUTES OFFICE 17823 MEÑO WILDER OUTPATIEN 2 2 OLY OLY T VISIT 25 MINUTES OFFICE 53666 [facility] 2 2 [place] LIZZ[place] ION ADULT & NEW/ESTAB PED PATIENT 40 MIN [facility] [place] [facility] 2 [facility] OUTPATIEN INC T OFFICE 42880 MEÑO WILDER OUTPATIEN 2 2 OLY OLY T VISIT 15 MINUTES [facility] [place] [facility] INC T EMERGENCY 25526 [place] 2 [facility] DEPARTMEN INC T VISIT HIGH/URGE NT SEVERITY EMERGENCY 71110 GRISELDA QUINTERO DEPT 2 2 EMERGENCY EMERSON VISIT SERVICES HIGH SEVERITY& THREAT [facility] [place] - 2 2 [facility] OUTPATIEN [facility] EMERGENCY 48316 GRSIELDA MOREAU DEPT 2 2 EMERGENCY VISIT SERVICES HIGH SEVERITY& THREAT [facility] EMERGENCY 44231 [place] 2 2 [facility] DEPARTMEN [facility] T VISIT HIGH/URGE NT SEVERITY [facility] [place] - 1 1 [facility] OUTPATIEN [facility] OFFICE 68633 MEÑO WILDER OUTPATIEN 1 1 OLY OLY T VISIT 15 MINUTES [facility] [place] - [facility] 1 [facility] [place] - 1 1 [facility] OFFICE 61250 [facility] JONEL OUTPATIEN 1 1 NEUROLOGY [facility]FAEL T VISIT [facility] 25 BRIANNA MINUTES [facility] [place] [facility] 1 1 [facility] [place] - 1 1 [facility] EMERGENCY 31049 GRISELDA KELLY 1 1 EMERGENCY DEPARTMEN SERVICES T VISIT HIGH/URGE NT SEVERITY EMERGENCY 51178 [place] 1 1 [facility] DEPARTMEN [facility] T VISIT LOW/MODER SEVERITY OFFICE 41068 MISSARY MEÑO OUTPATIEN 1 1 OLY OLY T NEW 30 MINUTES [facility] [place] - 1 1 [facility] [place] [facility] [place] [facility] 0 0 [facility] OFFICE 92060 [facility] JONEL OUTPATIEN 0 0 NEUROLOGY [facility] T VIS[facility] 25 BRIANNA MINUTES [facility] [place] [facility] 0 0 [facility] [place] [facility] [place] - 0 0 [facility] [place] - 0 0 [facility] [place] [facility] 0 [facility] [place] - 0 0 [facility] [place] [facility] 0 0 [facility] [place] [facility] 0 0 [facility] [id number] [facility] 0 0 [facility] NEW/ESTAB BRIANNA PATIENT 80 MIN [facility] [place] - 0 0 [facility] [id number] DEANDRE BAILEY 0 0 SHARMAINE SHARMAINE T VISIT 15 MINUTES OFFICE [id number] DEANDRE CARRERA OUTPATIEN 0 0 SHARMAINE A SHARMAINE A T VISIT 15 MINUTES [facility] [place] - 9 9 [facility] [place] [facility] 9 9 [facility] [id number] [facility] CONSULTAT 9 9 , LISALISA Rubio ION NEW/ESTAB PATIENT 60 MIN OFFICE [id number] DEANDRE CARRERA OUTPATIEN 9 9 SHARMAINE A SHARMAINE A T VISIT 15 MINUTES OFFICE [id number] DEANDRE CARRERA OUTPATIEN 9 9 SHARMAINE A SHARMAINE A T VISIT 15 MINUTES OFFICE [id number] DEANDRE CARRERA OUTPATIEN 9 9 SHARMAINE A SHARMAINE A T VISIT 15 MINUTES
--- OUTSIDE RECORDS SUMMARY | 2017-01-16 16:44 | External Medical Summary Rpt | CCD ---
Author Author , MYRIAM MIGUEL Address Unknown Phone [email or web address] Care Team Providers Care Hydro Plant Technician Name Role Phone TERESO PHYLICIA, TERESO PHYLICIA [...] C AYOOB AND, AYOOB AND Unavailable Unavailable [facility] Unavailable Unavailable LABORATORIES, [facility] Unavailable Unavailable LABORATORIES, [facility] Unavailable Unavailable CENTER, [facility], [facility] Unavailable Unavailable KELI ANT, KELI ANT Unavailable Unavailable [facility] Unavailable Unavailable SERVICE, [facility] Unavailable Unavailable SERVICE, [facility] EDISON DEMETRIO, EDISON DEMETRIO Unavailable Unavailable EDISON DEMETRIO, EDISON DEMETRIO Unavailable Unavailable SMITH LIZZY, Unavailable Unavailable SMITH LIZZY MERARY, MERARY Unavailable Unavailable [facility] Unavailable Unavailable ADULT & PED, [facility], Unavailable Unavailable [facility] RICHEY PEDRO, RICHEY PEDRO Unavailable Unavailable JOVANNY BELINDA, Unavailable Unavailable JOVANNY BELINDA BUCK, BUCK Unavailable Unavailable JAZMINE C JOVANNY, Unavailable Unavailable JAZMINE C JOVANNY [facility] Un[facility] [place] [facility] Unavailable Unavailable [place], [facility] Unavailable Unavailable [facility] Unavailable Unavailable JONEL RAFAEL, Unavailable Unavailable JONEL RAFAEL [facility], Unavailable Unavailable [facility] EM IV OLY, EM Unavailable Unavailable IV OLY FRYMAN, FRYMAN Unavailable Unavailable SHIREEN, SHIREEN Unavailable Unavailable SHIREEN [facility], SHIREEN Unavailable Unavailable [facility] Unavailable [facility] ALEX [facility], ALEX WAY Unavailable Unavailable RECIO LIZZETH, RECIO LIZZETH Unavailable Unavailable HABASH, HABASH Unavailable Unavailable HABASH, HABASH Unavailable Unavailable HARPEL, HARPEL Unavailable Unavailable SIMEON ISHMAEL, SIMEON Unavailable Unavailable ISHMAEL [facility] Unavailable Unavailable [facility], [facility] Unavailable Unavailable CENTER, [facility] Unavailable Unavailable INC, [facility] Unavailable Unavailable HOSPITAL P, [facility], Unavailable Unavailable [facility] Unavailable Unavailable EQUIPMENT, [facility] Unavailable GROUP PS, [facility] Unavailable Unavailable [facility], [facility] Unavailable Unavailable MEDICAL G, [facility] MEDICAL G KMS NURSE Unavailable Unavailable PRACTITIONER GR, KMS NURSE PRACTITIONER GR EMI POSEY, Unavailable Unavailable MARIE MAYORGA Unavailable Unavailable [facility] Un[facility] LESTER JR, LESTER JR Unavailable Unavailable CRISTINA OLY, CRISTINA Unavailable Unavailable OLY JEANNETTE SORENSEN MD Unavailable Unavailable [facility], JEANNETTE SORENSEN MD [facility] JOINER CHAVEZ, JOINER CHAVEZ Unavailable Unavailable [facility] Unavailable Unavailable SERVICES, [facility] FERMÍN ALTHEA, Unavailable Unavailable FERMÍN ALTHEA FERMÍN ALTHEA, Unavailable Unavailable FERMÍN ALTHEA [facility], Unavailable Unavailable [facility] Unavailable Unavailable [facility], [facility] CARRERA JOE, CARRERA Unavailable Unavailable SHARMAINE CARRERA, [...] #[id number] NAEL POSEY, NAEL Unavailable Unavailable KAL[facility] Unavailable Unavailable DEPT [facility], [facility] S[facility] Unavailable Unavailable DEPT [facility], [facility] SINDHU MONTERROSO JOSS, MONTERROSO Unavailable Unavailable JOSS MONTERROSO JOSS, MONTERROSO Unavailable Unavailable JOSS WILP, WILP Unavailable Unavailable [facility], Unavailable [facility], Unavailable Unavailable [facility] Purpose Continuity of Care Document - 07-26-2008 through 2016 Problems Code Diagnosis DOS Provider Status R55 SYNCOPE AND 12-13-2016 [facility] COLL[facility]SE [facility] GROUP N63 UNSPECIFIED 12-05-2016 [facility] LUMP IN PHYSICIANS BREAST GROUP [id number] ASHD TRIBE 11-30-2016 [facility] W/UNS INC ANGINA PECTORIS J449 CHRONIC 11-30-2016 [facility] OBSTRUCTIVE [facility] PULMONARY INC DISEASE UNS Z720 TOBACCO USE 11-30-2016 [facility] INC Z955 PRESENCE OF 11-30-2016 [facility] CORONARY [facility] ANGIOPLASTY INC IMPLANT & GRAFT X24102 NON-PRSS 11-25-2016 [facility] SKIN OTH SITE LTD BRKDWN SKN N6001 SOLITARY 11-24-2016 [facility] CY[facility] RIGHT IMAGING ASS BREAST N6002 SOLITARY 11-24-2016 [place] CY[facility] OF [facility]ICAL LEFT BREAST IMAGING ASS R928 OTH ABNORM 11-24-2016 [facility] & MEDICAL INCONCLUSIV IMAGING ASS E FIND ON DX IMAG BREAST N25147 ARCUS 11-23-2016 [facility] SENILIS BILATERAL H2513 AGE-RELATED 11-23-2016 [facility] NUCLEAR CATARACT BILATERAL F27326 REGULAR 11-23-2016 [facility] ASTIGMATISM BILATERAL L570 ACTINIC 11-23-2016 [facility] KERATOSIS D259 LEIOMYOMA 11-17-2016 [facility] PHYSICIANS UNSPECIFIED GROUP N950 POSTMENOPAU 11-17-2016 [facility] D[facility]NA PHYSICIANS BLEEDING GROUP R21 RASH AND 11-17-2016 [facility] OTHER [facility] NONSPECIFIC INC SKIN ERUPTION L53871 OTHER LONG 11-17-2016 [facility] TERM [facility] CURRENT INC DRUG THERAPY [id number] FX UNS 11-15-2016 [facility] CARPAL BONE HOME UNS WRIST MEDICAL INITIAL ENC EQUIPME CLOS FX K4090 UNILAT 11-11-2016 [facility] INGUINAL PHYSICIANS CEDRICK W/O GROUP OBST/GANGRE N NOT RECUR I712 THORACIC 11-10-2016 [facility] AORTIC [facility] ANEURYSM INC WITHOUT RUPTURE I716 THORACOABDO 11-09-2016 [facility] AORTIC IMAGING ASS ANEURYSM WITHOUT RUPTURE I728 ANEURYSM OF 11-09-2016 [place] OTHER MEDICAL SPECIFIED IMAGING ASS ARTERIES J432 CENTRILOBUL 11-09-2016 [facility] AR [facility] EMPHYSEMA IMAGING ASS K449 DIAPHRAGMAT 11-09-2016 [place] IC HERNIA MEDICAL W/O IMAGING ASS OBSTRUCTION OR GANGRENE N2889 OTHER 11-09-2016 [place] SPECIFIED MEDICAL DISORDERS IMAGING ASS OF KIDNEY AND URETER N289 DISORDER OF 11-09-2016 [facility] [facility] URETER IMAGING ASS UNSPECIFIED R921 MAMMO 11-04-2016 [place] CALCIFICATI MEDICAL ON FOUND ON IMAGING ASS DX IMAGING BREAST Z1231 ENCOUNTER 11-04-2016 [place] SCREENING MEDICAL MAMMO MALIG IMAGING ASS NEOPLASM BREAST I10 ESSENTIAL 10-27-2016 [facility] PRIMARY PHYSICIANS HYPERTENSIO GROUP N A68021 ENCOUNTER 10-27-2016 [facility] CLERK SPECIALIST EXAM PHYSICIANS GENERAL RTN GROUP W/ABNORMAL FIND L24746 ENCOUNTER 10-27-2016 [facility] CLERK SPECIALIST EXAM REFERNCE GENERAL RTN LABORATORIE W/O S ABNORMAL FIND Z1212 ENCOUNTER 10-27-2016 [facility] SCREENING PHYSICIANS MALIGNANT GROUP NEOPLASM RECTUM E785 HYPERLIPIDE 10-20-2016 [facility] JAIME PHYSICIANS UNSPECIFIED GROUP I119 HYPERTENSIV 10-20-2016 [facility] E HEART PHYSICIANS DISEASE GROUP WITHOUT HEART FAILURE I208 OTHER FORMS 10-20-2016 [facility] OF AN[facility]A PHYSICIANS PECTORIS GROUP I2510 ASHD TRIBE 10-20-2016 [facility] CORONARY PHYSICIANS ARTERY W/O GROUP ANGINA PECTORIS Z8679 PERSONAL 10-20-2016 [facility] HISTORY OTH PHYSICIANS DISEASES GROUP CIRCULATORY SYSTEM I214 NON-ST 09-01-2016 [facility] ELEVATION PHYSICIANS MYOCARDIAL GROUP INFARCTION Y33471 ASHD TRIBE 09-01-2016 [facility] COR ART PHYSICIANS W/UNSTABLE GROUP ANGINA PECTORIS J441 CHRONIC 08-31-2016 [facility] OBSTRUCTIVE PHYSICIANS PULMONARY GROUP DZ W/EXACERBAT ION I252 OLD 08-30-2016 [facility] P R0602 SHORTNESS 08-30-2016 [facility] BREATH PHYSICIANS, [facility] R61 GENERALIZED 08-30-2016 [facility] P IS R6884 JAW PAIN 08-30-2016 [facility] [facility], [facility] J020 STREPTOCOCC 08-23-2016 [facility] PHARYNGITIS CENTER J0190 ACUTE 06-09-2016 [facility] SINUSITIS UNSPECIFIED J209 ACUTE 06-09-2016 [facility] BRONCHITIS UNSPECIFIED G4734 IDIOPATH 04-04-2016 [facility] NONOBST INC ALVEOL HYPOVENTILA TN R634 ABNORMAL 04-04-2016 [facility] WEIGHT LOSS [facility] INC R911 SOLITARY 04-04-2016 [facility] PULMONARY [facility] NODULE INC R918 OTHER 04-04-2016 [place] NONSPECIFIC MEDICAL ABNORMAL IMAGING ASS FINDING OF LUNG FIELD G4730 SLEEP APNEA 02-12-2016 [facility] NURSE PRACTITIONE UNSPECIFIED R GR J439 EMPHYSEMA 02-12-2016 [facility] NURSE UNSPECIFIED PRACTITIONE R GR Z23 ENCOUNTER 02-03-2016 [facility] IMMUNIZATIO [facility] DEPT N SINDHU J069 ACUTE UPPER 12-03-2015 [facility] OLY RESPIRATORY INFECTION UNSPECIFIED 97454 OBSTRUCTIVE 12-24-2014 [facility] HOME APNEA MEDICAL EQUIPME 496 CHRONIC 12-24-2014 [facility] NEC 60438 UNSPECIFIED 12-16-2014 [facility] CLOSED HOME FRACTURE OF MEDICAL CARPAL EQUIPME BONE 4412 THORACIC 08-17-2014 MONTERROSO JOSS ANEURYSM WITHOUT MENTION OF RUPTURE 54915 SHORTNESS 08-17-2014 [facility] MEDICAL G 23588 OTHER 08-17-2014 MONTERROS[place] JOSS [place] [address] CHEST PAIN 08-17-2014 [facility] [place] UNSPECIFIED RADIOLOGY 4419 AORTIC 08-05-2014 [facility] DEMETRIO ANEUR UNSPEC SITE WITHOUT MENTION RUPTURE 5119 UNSPECIFIED 08-05-2014 [facility] PLEURAL RADIOLOGY EFFUSION 58853 PAINFUL 08-05-2014 [facility] ATKINSON RESPIRATION 4019 UNSPECIFIED 08-01-2014 [facility] ESSENTIAL HEALTH HYPERTENSIO MEDICAL G N 73118 DISSECTING 08-01-2014 [facility] AORTIC HEALTH ANEURYSM MEDICAL G THORACIC 49475 DISSECTING 08-01-2014 [facility] AORTIC RADIOLOGY ANEURYSM THORACOABDO ERIN 7140 RHEUMATOID 08-01-2014 [facility] ARTHRITIS HEALTH MEDICAL G 62393 DISSECTING 07-28-2014 [facility] ARABI ANEURYSM CLINIC PSC UNSPECIFIED SITE 5180 PULMONARY 07-28-2014 [facility] [place] COLLAPSE RADIOLOGY V5882 ENCOUNTER 07-28-2014 [facility] [place] FITTING&ADJ RADIOLOGY NON-VASCULA R CATHETER NEC 4422 ANEURYSM OF 07-27-2014 [facility] ILIAC SERV ARTERY FOUNDATION 81364 ANEURYSM OF 07-27-2014 [facility] SPLENIC SERV ARTERY FOUNDATION 4928 OTHER 07-27-2014 [facility] EMPHYSEMA SERV FOUNDATION 5533 DIAPHRAGMAT 07-27-2014 [facility] CEDRICK W/O SERV MENTION FOUNDATION OBSTRUCTION /GANGREN 72879 SOLITARY 07-27-2014 [facility] PULMONARY SERV NODULE FOUNDATION 77541 OTHER 04-21-2014 FER[facility] SELECTIVE ALTHEA IMMUNOGLOBU GILBERTO DEFICIENCIE S 2859 UNSPECIFIED 04-21-2014 [facility] ANEMIA [facility] INC 4739 UNSPECIFIED 04-21-2014 [facility] SINUSITIS [facility] INC 4770 ALLERGIC 04-21-2014 FEMRÍN RHINITIS ALTHEA DUE TO POLLEN 4778 ALLERGIC 04-21-2014 FERMÍ[facility] RHINITIS ALTHEA DUE TO OTHER ALLERGEN 59939 OBSTRUCTIVE 04-21-2014 FERMÍN CHRONIC ALTHEA BRONCHITIS WITH EXACERBATIO N 4919 UNSPECIFIED 04-21-2014 [facility] CHRONIC [facility] BRONCHITIS INC 09788 CHRONIC 04-21-2014 [facility]STRUCTIVE [facility] ASTHMA INC UNSPECIFIED 14193 OTHER 04-21-2014 [facility] MALAISE AND [facility] FATIGUE INC V727 DIAGNOSTIC 04-21-2014 FERMÍN SKIN AND ALTHEA SENSITIZATI ON TESTS 4660 ACUTE 03-11-2014 [facility] OLY BRONCHITIS 4659 ACUTE URIS 02-13-2014 [facility] OLY OF UNSPECIFIED SITE 3384 CHRONIC 12-20-2013 [facility] OLY PAIN SYNDROME 462 ACUTE 12-20-2013 [facility] OLY PHARYNGITIS 4779 ALLERGIC 10-24-2013 FERMÍN RHINITIS ALTHEA CAUSE UNSPECIFIED 78752 CHRONIC 10-24-2013 FER[facility]ÍN OBSTRUCTIVE ALTHEA ASTHMA W/STATUS ASTHMATICUS 99680 ESOPHAGEAL 10-24-2013 FERMÍN REFLUX ALTHEA 9390 FOREIGN 06-10-2013 [facility] [place] BLAD[facility] ADULT & PED URETHRA 5921 CALCULUS OF 05-21-2013 [facility] URETER CONSULTING SRV V7281 PRE-OPERATI 05-21-2013 [facility] RICHEY VE CARDIOVASCU CONSULTING LAR SRV EXAMINATION 591 HYDRONEPHRO 05-16-2013 [facility] [place] [facility]ED 7880 RENAL COLIC 05-05-2013 [facility] 2669 UNSPECIFIED 04-22-2013 [facility] VITAMIN B [facility] DEFICIENCY INC 2689 UNSPECIFIED 04-22-2013 [facility] VITAMIN D [facility] DEFICIENCY INC 99394 OBSTRUCTIVE 04-22-2013 [facility] CHRONIC [facility] BRONCHITIS INC WITHOUT EXACERBAT 4829 UNSPECIFIED 04-18-2013 FERMÍN BACTERIAL ALTHEA PNEUMONIA 4619 ACUTE 02-28-2013 [facility] OLY SINUSITIS, UNSPECIFIED 61769 VARIANTS 12-01-2012 [facility] OLY MIGRAINE NEC INTRACT MIGRAINE W/O [place] 72883 PAIN IN 06-06-2012 ARTHR[facility]IS JOINT, AND MULTIPLE OSTEOPOROSI SITES S C 7242 LUMBAGO 06-06-2012 ARTHRITIS AND OSTEOPOROSI S C 7291 UNSPECIFIED 06-06-2012 ARTHRITIS MYALGIA AND AND OSTEOPOROSI MYOSITIS S C 03778 UNSPECIFIED 06-01-2012 [facility] OSTEOPOROSI S V5876 AFTERCARE 06-01-2012 [facility]LLOW [facility] SURGERY SYSTEM NEC 5930 NEPHROPTOSI 05-29-2012 [facility] ANESTHESIA GROUP PS V7283 OTHER 05-28-2012 [facility] SPECIFIED COMMUNITY PRE-OPERATI HOSPITA VE EXAMINATION 2112 BENIGN 05-24-2012 [facility] NEOPLASM OF [facility] DUODENUM INC JEJUNUM AND ILEUM 58843 ACUT GASTR 05-24-2012 PATHOLOGY & ULCER W/O CYTOLOGY MENTION LAB HEMORR PERF/OBST 95523 UNS 05-24-2012 [facility] GASTRITIS&G [facility] ASTRODUODIT INC IS W/O MENTION HEMORR 14234 DYSPHAGIA 05-24-2012 [facility] UNSPECIFIED [facility] INC 06849 UNSPECIFIED 05-16-2012 JEANNETTE SORENSEN MD ARTHROPATHY PSC OTHER SPECIFIED SITES 4780 HYPERTROPHY 05-14-2012 F[facility]ÍN OF NASAL ALTHEA TURBINATES 82064 MIGRAINE 04-25-2012 [facility] W/O AURA NEUROLOGY INTRACT W/O CENTER [facility] STATUS MIGRAINOSUS 18904 CHRONIC 04-25-2012 [facility] MIGRAINE NEUROLOGY W/O CENTER BRI[facility] W/INTRACTAB LE W/O SM 7231 CERVICALGIA 04-25-2012 [facility] C[facility] B[facility]NA 486 PNEUMONIA, 01-11-2012 [facility] ORGANISM [facility] HOS[facility] UNSPECIFIED INC 00565 CHRONIC 12-27-2011 ERICA FATIGUE FRANCHESCA AGEE SYNDROME PSC 7830 ANOREXIA 12-27-2011 JEANNETTE SORENSEN MD PSC V0481 NEED 12-21-2011 [facility] PROPHYLACTI HEALTH [facility] VACCINATION &INOCULATIO N FLU 5920 CALCULUS OF 12-14-2011 [facility] KIDNEY [facility] INC 13538 HEMATURIA 12-14-2011 [place] UNSPECIFIED MEDICAL IMAGING ASS 84746 COR 11-29-2011 [facility] ATHEROSLERO UNSPEC TYPE VESSEL TRIBE/LYNN T 33740 ABDOMINAL 11-17-2011 [facility] [place] PAIN, RADIOLOGY UNSPECIFIED SITE 5929 UNSPECIFIED 11-02-2011 [facility] URINARY CALCULUS 49061 OTHER ACUTE 10-10-2011 [facility] 5990 URINARY 10-10-2011 [facility] INFECTION SERVICES SITE NOT SPECIFIED 05009 NAUSEA WITH 10-10-2011 [facility] VOMITING [facility]ANCE SERVICE 32404 ABDOMINAL 10-10-2011 [facility] PA[facility], EMERGENCY EPIGASTRIC SERVICES 8408 SPRAIN&STRA 04-11-[address] [facility] [address]TH [address]C [facility] P SHOULDER&UP PER ARM 8409 SPRAIN&STRA 04-11-2011 [facility] IN UNSPEC EMERGENCY SITE SERVICES SHOULDER&UP PER ARM 48096 GENERALIZED 04-05-2011 [facility] PAIN FRANCHESCA AGEE PSC 70874 CLOSED 01-12-2011 [facility] FRACTURE OF [facility] LOWER END INC OF RADIUS WITH ULNA V5489 OTHER 01-12-2011 [place] ORTHOPEDIC [facility] AFTERCARE IMAGING ASS 51650 CLOSED 12-22-2010 [facility] COLLES [facility] FRACTURE INC 39342 CONTUSION 11-19-2010 [facility] OF KNEE [facility] INC 9597 INJURY 11-19-2010 [place] OTHER&UNSPE MEDICAL CIFIED KNEE IMAGING ASS LEG ANKLE&FOOT 32563 PAIN IN 11-12-2010 [facility] JOINT, SHOULDER REGION 920 CONTUSION 11-12-2010 [place] OF FACE MEDICAL SCALP AND IMAGING ASS NECK EXCEPT EYE 9248 CONTUSION 11-12-2010 GR[facility] OF MULTIPLE EMERGENCY SITES NEC SERVICES 2809 UNSPECIFIED 04-05-2010 [facility] IRON [facility] DEFICIENCY INC ANEMIA 1749 MALIGNANT 03-15-2010 [facility] NEOPLASM OF [facility] BREAST INC UNSPECIFIED SITE 7804 DIZZINESS 02-23-2010 JAZMINE C AND JOVANNY GIDDINESS 7802 SYNCOPE AND 02-17-2010 [facility] COLLAPSE NEUROLOGY CENTER B[facility]AN[facility] V7611 SCREENING 02-12-2010 [facility] MAMMOGRAM [facility] FOR INC HIGH-RISK PATIENT V7612 OTHER 02-12-2010 [place] SCREENING MEDICAL MAMMOGRAM IMAGING ASS 41140 ANEMIA IN 02-01-2010 [facility] CHRONIC [facility] KIDNEY INC DISEASE 2113 BENIGN 01-27-2010 PATHOLOGY & NEOPLASM OF CYTOLOGY COLON LAB 2114 BENIGN 01-27-2010 PATHOLOGY & NEOPLASM OF CYTOLOGY RECTUM AND LAB ANAL CANAL V7651 SPECIAL 01-27-2010 [facility] SCREENING SERV FOR FOUNDATIO MALIGNANT NEOPLASMS COLON 44155 ATROPHIC 01-06-2010 PATHOLOGY & GASTRITIS CYTOLOGY WITHOUT LAB MENTION OF HEMORRHAGE 42419 OTHER SPEC 01-06-2010 [facility] GASTRITIS SERV WITHOUT FOUNDATIO MENTION HEMORRHAGE 5564 PSEUDOPOLYP 01-06-2010 PATHOLOGY & OSIS OF CYTOLOGY COLON LAB 2827 OTHER 12-30-2009 [facility] HEMOGLOBINO [facility] PATHIES INC 2768 HYPOPOTASSE 12-21-2009 [facility] JAIME [facility] INC 94141 ING CEDRICK 12-19-2008 JUDIE, W/O MENTION LISA OBST/GANGRE N UNILAT/UNSP EC 7840 HEADACHE 12-05-2008 SHARMAINE CARRERA Medications Na ND Rx Da Fi Fi Am Da Di Ph RX Ph St me C No te ll ll ou ys ag ar # ys at rm s nt no ma ic us Or Da si cy ia de te s n re d AR 59 09 10 10 5 00 [...] 17 17 49 TA 5 84 PH AK AR N- MA CA CY FF OF [...] -[address] ti AR 50 1- 9- 00 00 SI ve [...] 17 17 49 TA 5 84 PH AK AR N- MA CA CY FF OF 50 CY -3 NT 25 HI -4 AN 0 A IN C BI 00 08 09 30 30 00 EA Ac SO 18 -0 -[address] ti AR 50 4- 1- 00 00 SI ve [...] 17 17 49 TA 5 84 PH AK AR N- MA CA CY FF OF [...] 05 05 60 30 00 EA Ac AR [...] 01 02 60 30 00 EA Ac AR [...] 11 11 RI TA 8 PH CH AK AR AR N- MA D CA CY [...] 11 11 RI TA 8 PH CH AK AR AR N- MA D CA CY [...] 11 11 RI TA 8 PH CH AK AR AR N- MA D CA CY [...] 11 11 SHRUTHI TA 8 PH E [place] AR A N- MA CA CY FF [...] 10 10 SHRUTHI TA 8 PH E [place] AR A N- MA CA CY FF [...] 10 10 SHRUTHI TA 8 PH E [place] AR A N- MA CA CY FF [...] 10 10 SHRUTHI TA 8 PH E AK AR A N- MA CA CY FF [...] 10 10 SHRUTHI TA 8 PH E [place] AR A N- MA CA CY FF OF 50 -3 CY 25 NT -4 HI 0 AN A BU 00 07 07 0 36 6 EA 18 NI Ac TA 60 -1 -[address] 32 CH ti LB 32 3- 3- 00 SI 75 OL ve -A 54 20 20 DE S CE 42 10 10 SHRUTHI TA 8 PH E AK AR A N- MA CA CY FF OF 50 -3 CY 25 NT -4 HI 0 AN A BU 00 03 03 0 36 6 EA 16 NI Ac TA 59 -0 -[address] 59 CH ti LB 13 2- 2- 00 SI 46 OL ve -A 36 20 20 DE S CE 90 10 10 SHRUTHI TA 5 PH E [place] AR A N- MA CA CY FF [...] 10 10 SHRUTHI TA 5 PH E [place] AR A N- MA CA CY FF OF 50 CY -3 NT 25 HI -4 AN 0 A BU 00 01 01 00 36 7 EA 15 NI Ac TA 59 -0 -[address] 90 CH ti LB 13 9- 8- 00 SI 22 OL ve -A 36 20 20 DE S CE 90 10 10 SHRUTHI TA 5 PH E [place] AR A N- MA CA CY FF OF 50 CY -3 NT 25 HI -4 AN 0 A BU 00 12 12 00 36 7 EA 15 NI Ac TA 59 -1 -[address] 57 CH ti LB 13 4- 1- 00 SI 60 OL ve -A 36 20 20 [address] S CE 90 09 09 SHRUTHI TA 5 PH E [place] AR A N- MA CA CY FF [...] 09 09 SHRUTHI TA 1 PH E [place] AR A N- MA CA CY FF [...] 09 09 SHRUTHI TA 1 PH E [place] AR A N- MA CA CY FF [...] Procedure DOS Code Location Performer Comment INTERROGA 93879 [facility] RICHARD SCHROEDER 7 PHYSICIAN EVALUATIO S GROUP N IN PERSON ILR SYSTEM CATH PLMT 51543 [facility] Rubio HRT & 7 [facility] ARTS INC INC W/NJX & ANGIO IMG S&I BASIC 96123 [facility] SCHUSTER METABOLIC 7 [facility] PANEL INC INC CALCIUM TOTAL BLOOD 05619 [facility] SCHUST[facility] COUNT 7 [facility] COMPLETE INC INC AUTO&AUTO [place]IFRNTL [place] 61113 [facility] SCHUSTER SAME 7 [facility] PHYS/QHP INC INC INITIAL 15 MINS <5 YRS URINE 33706 [facility] SCHUSTER 7 [facility] TEST INC INC VISUAL COLOR CMPRSN METHS SPECIAL 02546 [facility] STAIN 7 DERMATOLO GROUP 1 GY MICROORGA NISAL I&[place] [address] [facility] SURG 7 DERMATOLO PATHOLOGY GY GROSS&MANJIT ROSCOPIC EXAM DIAGNOSTI G0204 [place] MELA Mcgrath 7 MEDICAL MAMMOGRAP IMAGING HY INCL ASS CAD WHEN PERF; BILAT DIAGNOSTI 10580 [facility] SCHUSTER C 7 [facility] MAMMOGRAP INC INC HY COMPUTER- AIDED DETCJ BI US BREAST 79589 [facility] SCHUSTER UNI REAL 7 [facility] TIME INC INC WITH IMAGE COMPLETE US BREAST 89205 [place] MELA UNI REAL 7 MEDICAL TIME IMAGING WITH ASS IMAGE LIMITED FRAMES V2020 JOSE GARCIA PURCHASES 7 BIFOCL V2207 JOSE GARCIA +/-4.25-+ 7 /-7.00D SPHER 0.12-2.00 D CYL-EA FITTING 32929 JOSE GARCIA SPECTACLE 7 S XCPT APHAKIA BIFOCAL BIFOCL V2208 JOSE GARCIA +/-4.25-+ 7 /-7.00D SPHER 2.12-4.00 D CYL-EA O2 CONC 1 E1390 [facility] [place] 7 HOME HOME 85%/>02 MEDICAL MEDICAL CONC AT EQUIPME EQUIPME PRSC FLW RATE IMPLANTAT 21654 [facility] RICHARD ION 7 PHYSICIAN PT-ACTIVA S GROUP SREE CARDIAC EVENT RECORDER ENDOMETRI 33794 [facility] AL BX 7 PHYSICIAN W/WO S GROUP ENDOCERVI X BX W/O DILAT SPX EVENT C1764 [facility] RECORDER 7 [facility] CARDIAC INC INC HOSPITAL G0463 [facility] OUTPATIEN 7 [facility] T CLIN INC INC VISIT ASSESS & MGMT PT CT THORAX 24597 [facility] [place] MELA 7 MEDICAL W/CONTRAS IMAGING T ASS MATERIAL FINAL G9638 [facility] [place] MELA REPORTS 7 MEDICAL W/O DOC IMAGING 1/MORE ASS DOSE REDUCTION TECH FINAL RPT G9557 [facility] [place] MELA CT/MRI 7 MEDICAL CHEST/NCK IMAGING /U/S NO ASS THR NOD<1.0 CM FINAL G9551 [facility] [place] [facility]ELA REPR ABD 7 MEDICAL IMAG STS IMAGING W/O ASS INCIDNT FND LES NTD: [place] [address] [facility] ANGIOGRAP 7 [facility] HY CHEST INC INC W/CONTRAS T/[place] [address] [facility] ANGIOGRAP 7 [facility] HY INC INC [place]BDOMEN [place]/CONTR[place] [address] [facility] RETROPERI 7 [facility] TONEAL INC [place] TIME W/[place] [address] [facility] RETROPERI 7 MEDICAL TONEAL IMAGING [place] TIME ASS W/[place] [address] [facility] ABDOMEN 7 MEDICAL [place] [address] [facility] TRANSVAGI 7 MEDICAL NAL IMAGING ASS INFO 7025F [facility] SYSTEM 7 MEDICAL ANALYSIS IMAGING ABNORMAL ASS INTERPRAT E SCREENING G0202 [facility] 7 MEDICAL MAMMOGRAP IMAGING HY JERRY ASS INCL CAD WHEN PERFORMD SCREENING 95329 [facility] 7 [facility] MAMMOGRAP INC INC HY BI 2-VIEW BREAST INC CAD MAMMO 3340F [facility] ASSESSMEN 7 MEDICAL T CAT IMAGING INCOMP ASS ADDTNL IMAGE DOCD COLLECTIO 22490 [facility] N VENOUS 7 [facility] [place] [address] [facility] UREA 7 [facility] NITROGEN INC INC QUANTITAT JADON CREATININ 74083 [facility] E BLOOD 7 [facility] INC INC BLOOD 47780 [facility] OCCULT 7 PHYSICIAN PHYSICIAN PEROXIDAS S GROUP S GROUP E ACTV QUAL FECES 1-3 SPEC IADNA 43265 BIO BIO TRICHOMON 7 REFERNCE 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 VAGINALIS IES IES AMPLIFIED PROBE TECH IADNA 12514 [facility] NEISSERIA 7 PHYSICIAN S GROUP GONORRHOE AE DIRECT PROBE TQ IADNA 14621 BIO BIO NEISSERIA 7 REFERNCE 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 GONORRHOE IES IES AE AMPLIFIED PROBE TQ IADNA NOS 63928 BIO BIO 7 REFERNCE REFERNCE AMPLIFIED LABORATOR LABORATOR PROBE TQ IES IES EACH ORGANISM CULTURE 23753 [facility] CHLAMYDIA 7 PHYSICIAN ANY S GROUP SOURCE CYTP C/V 91565 BIO BIO AUTO THIN 7 REFERNCE REFERNCE LYR LABORATOR LABORATOR PREPJ SCR IES IES MNL RESCR PHYS IADNA 49227 BIO BIO CHLAMYDIA 7 REFERNCE 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 IES IES IS AMPLIFIED PROBE TQ ECG 21912 [facility] ROUTINE 7 PHYSICIAN ECG S GROUP W/LEAST 12 LDS I&R ONLY ECG 29201 LANDEN SCHUSTER ROUTINE 7 [facility] ECG INC INC W/LEAST 12 LDS TRCG ONLY W/O I&R O2 CONC 1 E1390 [facility] [place] 7 HOME HOME 85%/>02 MEDICAL MEDICAL CONC AT EQUIPME EQUIPME PRS FLW RATE DRUG TEST 16140 LANDEN SCHUSTER PRSMV 7 [facility] QUAL DIR INC INC OPTICAL OBS PER DAY NEBULIZER E0570 SHAQ SHAQ WITH 7 HOME HOME COMPRESSO MEDICAL MEDICAL R EQUIPME EQUIPME ADMN SET A7005 YOUR YOUR W/SM VOL 7 PHARMACY PHARMACY [facility] NEBULIZR NON-DISPB L ECG 63140 LANDEN SCHUSTER ROUTINE 7 [facility] ECG INC INC W/LEAST 12 LDS TRCG ONLY W/O I&R O2 CONC 1 E1390 SHAQANTHONY [place] 7 HOME HOME 85%/>02 MEDICAL MEDICAL CONC AT EQUIPME EQUIPME PRS FLW RATE CLOSURE C1760 LANDEN SCHUSTER DEVICE 7 [facility] VASCULAR INC INC INTRDUCR/ C1894 LANDEN SCHUSTER SHEATH 7 [facility] NOT GUID INC INC INTRACARD EP NON-LASR PRQ 51344 LANDEN SCHUSTER TRLUML 7 [facility] CORONARY INC INC STENT W/ANGIO ONE ART/BRNCH COAGULATI 33433 LANDEN SCHUSTER ON TIME 7 [facility] ACTIVATED INC INC LIPID 22499 LANDEN SCHUSTER PANEL 7 [facility] INC INC BLOOD 48275 LANDEN SCHUSETR COUNT 7 [facility] COMPLETE INC INC AUTO&AUTO DIFRNTL WBC BASIC 90450 LANDEN SCHUSTER METABOLIC 7 [facility] PANEL INC INC CALCIUM TOTAL COLLECTIO 13639 LANDEN SCHUSTER N VENOUS 7 [facility] BLOOD INC INC VENIPUNCT [facility] G0378 LANDEN SCHUSTER OBSERVATI 7 [facility] ON INC INC SERVICE [facility] 68593 [facility] 7 PHYSICIAN DAY S GROUP MANAGEMEN T 30 MIN/< GUIDE C1769 LANDEN SCHUSTER WIRE 7 [facility] INC INC STENT C1876 LANDEN SCHUSTER NON-COATE 7 [facility] D/NON-COV INC INC ERED W/DELIVER Y SYSTEM CATHETER C1725 LANDEN SCHUSTER TRANSLUMI 7 [facility] NAL INC INC ANGIOPLAS TY NON-LASER GUIDE C1769 LANDEN SCHUSTER WIRE 7 [facility] INC INC CATHETER C1725 LANDEN SCHUSTER TRANSLUMI 7 [facility] NAL INC INC ANGIOPLAS TY NON-LASER HOSPITAL G0378 LANDEN SCHUSTER OBSERVATI 7 [facility] ON INC INC SERVICE PER HOUR CATH PLMT 47560 LANDEN SCHUSTER L HRT & 7 [facility] ARTS INC INC W/NJX & ANGIO IMG S&I INITIAL 78685 [facility] 7 PHYSICIAN CARE/DAY S GROUP 50 MINUTES URINE 62283 LANDEN SCHUSTER 7 [facility] TEST INC INC VISUAL COLOR CMPRSN METHS GROUND A0425 [facility] 7 AMBULANCE AMBULANCE PER SERVICE SERVICE STATUTE MILE COMPREHEN 75986 LANDEN SCHUSTER SIVE 7 [facility] METABOLIC INC INC PANEL THERAPEUT 64736 LANDEN SCHUSTER IC 7 [facility] INJECTION INC INC IV PUSH EACH NEW DRUG ECG 70570 LANDEN SCHUSTER ROUTINE 7 [facility] ECG INC INC W/LEAST 12 LDS TRCG ONLY W/O I&[place] [address] LANDEN SCHUSTER INFUSION 7 [facility] THERAPY/P INC INC ROPHYLAXI S /DX 1ST TO 1 HR ECG 33025 LANDEN BATISTA JR ROUTINE [address] [facility] W/LEAST P 12 LDS I&R ONLY PRESSURIZ 67325 LANDEN SCHUSTER ED/NONPRE 7 [facility] SSURIZED INC INC INHALATIO N TREATMENT BLOOD 54060 LANDEN SCHUSTER COUNT 7 [facility] COMPLETE INC INC AUTO&[place] [address] LANDEN SCHUSTER TROPONIN 7 [facility] QUANTITAT INC INC JADON RADIOLOGI 96218 [facility] MELA C 7 MEDICAL EXAMINATI IMAGING ON CHEST ASS SINGLE VIEW FRONTAL AMB A0427 [facility] SERVICE 7 AMBULANCE AMBULANCE ALS SERVICE SERVICE EMERGENCY TRANSPORT LEVEL 1 CRITICAL 02626 [facility] 7 PHYSICIAN ILL/INJUR S, [facility] ED PATIENT INIT 30-74 MIN IAADIADOO 29895 [facility] 7 FAMILY STREPTOCO CARE CCUS CENTER GROUP [...] EQUIPME EQUIPME PRSC FLW RATE CT THORAX 25965 [place] W/O 7 MEDICAL CONTRAST IMAGING MATERIAL ASS FINAL RPT G9557 [place] CT/MRI 7 MEDICAL CHEST/NCK IMAGING /U/S NO ASS THR NOD<1.0 CM FINAL G9638 [place] REPORTS 7 MEDICAL W/O DOC IMAGING 1/MORE ASS DOSE REDUCTION TECH O2 CONC 1 E1390 [facility] [place] 6 HOME HOME 85%/>02 MEDICAL MEDICAL CONC AT EQUIPME EQUIPME PRSC FLW RATE O2 CONC 1 E1390 [facility] [place] 6 HOME HOME 85%/>02 MEDICAL MEDICAL CONC AT EQUIPME EQUIPME PRSC FLW RATE PULMONARY 94937 [facility] JANE STRESS 6 [place] [address] SAMIA BUCK DIFFUSING 6 MEDICAL CAPACITY SERV FOUNDATIO N SPMTRY 04197 SAM[facility] JANE W/VC 6 MEDICAL EXPIRATOR SERV Y ANA MARIA FOUNDATIO W/WO MXML N VOL VNTJ PLETHYSMO 76133 [facility] JANE GRAPHY 6 MEDICAL LUNG SERV VOLUMES FOUNDATIO W/WO N AIRWAY RESIST IIV4 VACC 74277 [facility] S[facility] 6 [facility] DISTRICT VIRUS 0.5 HLTH DEPT HLTH DEPT ML DOS SINDHU SINDHU FOR IM USE COLLECTIO 59824 LANDEN SCHUSTER N VENOUS 6 [facility] BLOOD INC INC VENIPUNCT URE ANTIBODY 58066 LANDEN SCHUSTER IDENTIFIC 6 [facility] ATION INC INC LEUKOCYTE ANTIBODIE S ANTINUCLE 49262 LANDEN SCHUSTER AR 6 [facility] ANTIBODIE INC INC S CARLOS ALPHA-1-A 91935 LANDEN SCHUSTER NTITRYPSI 6 [facility] N INC INC PHENOTYPE BLOOD 49641 LANDEN SCHUSTER COUNT 6 [facility] COMPLETE INC INC AUTO&AUTO DIFRNTL WBC COMPREHEN 79196 LANDEN SCHUSTER SIVE 6 [facility] [place] [address] LANDEN SCHUSTER THYROID 6 [facility] STIMULATI INC INC NG HORMONE TSH O2 CONC E[address] [facility] 6 HOME HOME 85%/>02 MEDICAL MEDICAL CONC AT EQUIPME [facility] FLW RATE O2 CONC [address] [facility] 6 HOME HOME 85%/>02 MEDICAL MEDICAL CONC AT EQUIPME EQUIPME PRS FLW RATE O2 CONC [address] [facility] 6 HOME HOME 85%/>02 MEDICAL MEDICAL CONC AT EQUIPME EQUIPOK PRS FLW RATE ADMN SET A7005 YOUR YOUR W/SM VOL 6 PHARMACY PHARMACY [facility] NEBULIZR NON-DISPB L O2 CONC [address] [facility] 6 HOME HOME 85%/>02 MEDICAL MEDICAL CONC AT EQUIPME [facility] FLW RATE O2 CONC [address] [facility] 6 HOME HOME 85%/>02 MEDICAL MEDICAL [...] YOUR YOUR W/SM VOL 5 PH[facility] NON-DISPB L CUSHN A7032 SHAQ [...] RENT; EQUIPME EQUIPME FLWMTR HUMIDFR&M ASK ECG 53353 MONTERROSO MONTERROSO ROUTINE 5 JOSS JOSS ECG W/LEAST 12 LDS I&R ONLY RADIOLOGI 70952 MONTERROSO MONTERROSO C 5 JOSS JOSS EXAMINATI ON CHEST SINGLE VIEW FRONTAL O2 CONC 1 E1390 [facility] [place] 5 HOME HOME 85%/>02 MEDICAL MEDICAL CONC AT EQUIPME EQUIPME PRSC FLW RATE RADIOLOGI 50911 [facility] [place]OST[place] C 5 RADIOLOGY [place] EXAMINATI ON CHEST SINGLE VIEW FRONTAL ECG 91298 [facility] ROUTINE 5 [facility] [place] ECG MEDICAL W/LEAST G 12 LDS I&[place] [address] [facility] [place] ANGIOGRAP 5 RADIOLOGY [place] HY CHEST W/CONTRAS T/[place] [address] [facility] [place] ANGIOGRAP 5 RADIOLOGY GUTIERREZ HY CHEST W/CONTRAS T/NONCONT RAST CT ANGIO 24666 [facility] [place] ABD&PLVIS 5 RADIOLOGY GUTIERREZ CNTRST MTRL W/WO CNTRST IMG INITIAL 60014 [facility] 5 NE HEALTH CARE/DAY MEDICAL 70 G MINUTES RADIOLOGI 72143 [facility] [place] SIMEON C 5 RADIOLOGY ISHMAEL EXAMINATI ON CHEST SINGLE VIEW FRONTAL RADIOLOGI 49770 [facility] [place] C 5 RADIOLOGY ISHMAEL EXAMINATI ON CHEST SINGLE VIEW FRONTAL ANES HRT [address] PERICRD 5 A SAC&GRT ASSOCIATE VSLS S PSC W/DAMAGE APPRAISER OXTJ >1MO PO ASCENDING 41047 EM IV EM IV AORTA 5 OLY OLY GRF W/CARD BYP & VALVE SSP DOPPLER [address] ECHOCARD 5 A PULSE ASSOCIATE WAVE S PSC W/SPECTRA L DISPLAY SPCL STN 07090 KAHLIL PICHARDO 2 I&R 5 [facility] EXCPT CLINIC MICROORG/ PSC ENZYME/[place] [address] [place] SURG 5 [facility] PATHOLOGY CLINIC PSC GROSS&MANJIT ROSCOPIC EXAM ECHO [address] TRANSESOP 5 A HAG R-T ASSOCIATE 2D W/PRB S PSC IMG ACQUISJ I&R DOP [address] ECHOCARD 5 A COLOR ASSOCIATE FLOW S PSC VELOCITY MAPPING INITIAL 80449 EM IV EM IV INPATIENT 5 OLY OLY CONSULT NEW/ESTAB [place] [address] [place] [address] [place] AYOOB AND ANGIOGRAP 5 MEDICAL HY CHEST SERV W/CONTRAS FOUNDATIO T/NONCONT N RAST CT ANGIO 98846 [place] AYOO[place] AND ABD&PLVIS 5 MEDICAL CNTRST [...] AT EQUIPME EQUIPME PRSC FLW RATE C-REACTIV 54011 LANDEN Guo PROTEIN 5 [facility] INC INC ANTIBODY 01214 LANDEN SCHUSTER DIPHTHERI 5 [facility] A INC INC ANTIBODY 68756 LANDEN SCHUSTER TETANUS 5 [facility] INC INC COLLECTIO 53718 LANDEN SCHUSTER N VENOUS 5 [facility] BLOOD INC INC VENIPUNCT URE NITRIC 55871 FERMÍN FERMÍN OXIDE 5 ALTHEA ALTHEA GAS DETERMINA TION HEADGEAR A7035 SHAQ NEW USED 5 HOME HOME W/POSITIV MEDICAL MEDICAL E AIRWAY EQUIPME EQUIPME PRESSURE DEVICE SEDIMENTA 37660 LANDEN SCHUSTER TION RATE 5 [facility] RBC INC INC NON-AUTOM ATED HEMAGGLUT 82111 LANDEN SCHUSTER INATION 5 [facility] INHIBITIO INC INC N TEST ERICKA CULTURE 16232 LANDEN LANDEN FNGI 5 [facility] MOLD/YEAS INC INC T PRSMPTV OTH XCPT BLOOD CUL BACT 22415 LANDEN SCHUSTER XCPT 5 [facility] URINE INC INC BLOOD/STO OL AEROBIC ISOL CYANOCOBA 38889 LANDEN SCHUSTER JOSE RAFAEL 5 [facility] VITAMIN INC INC B-12 PERCUTANE 99380 FERMÍN FERMÍN OUS TESTS 5 ALTHEA ALTHEA W/ALLERGE PHYLICIA EXTRACTS BRNCDILAT 99509 FERMÍN FERMÍN RSPSE 5 ALTHEA ALTHEA SPMTRY PRE&POST- BRNCDILAT ADMN PRESSURIZ 99987 FERMÍN FERMÍN ED/NONPRE 5 ALTHEA ALTHEA SSURIZED INHALATIO N TREATMENT 25 11594 LANDEN SCHUSTER HYDROXY 5 [facility] INCLUDES INC INC FRACTIONS IF PERFORMED RADIOLOGI 06410 [facility] EXAM 5 MEDICAL BELINDA CHEST 2 IMAGING VIEWS ASS FRONTAL&L ATERAL BLOOD 79475 LANDEN SCHUSTER COUNT 5 [facility] COMPLETE INC INC AUTO&AUTO DIFRNTL WBC SMR PRIM 20313 LANDEN SCHUSTER SRC 5 [facility] GRAM/GIEM INC INC SA STAIN BCT FUNGI/ELPIDIO L COMPREHEN 50443 LANDEN SCHUSTER SIVE 5 [facility] METABOLIC INC INC PANEL FULL FACE A7030 SHAQ SHAQ MASK 5 HOME HOME USED MEDICAL MEDICAL W/POS EQUIPME EQUIPME ARWAY PRESS DEVICE EA ADMN SET A7005 YOUR YOUR W/SM VOL 5 PHARMACY PHARMACY [facility] NEBUL[facility] NON-DISPB L TUBING A7037 SHAQ NEW USED WITH 5 HOME HOME POSITIVE MEDICAL MEDICAL AIRWAY EQUIP[place] [address] LANDEN SCHUSTER THYROID 5 [facility] STIMULATI INC INC NG HORMONE TSH ANTIBODY 69809 LANDEN LANDEN BACTERIUM 5 [facility] NOT INC INC ELSEWHERE SPECIFIED ANTIBODY 02624 LANDEN SCHUSTER RUBELLA 5 [facility] INC INC COMPLEMEN 66627 LANDEN SCHUSTER T TOTAL 5 [facility] [place] [address] LANDEN SCHUSTER FREE 5 [facility] [place] [address] LANDEN SCHUSTER GAMMAGLOB 5 [facility] ULIN IGE INC INC GAMMAGLOB 77298 LANDEN SCHUSTER ULIN 5 MEM HOS[facility] MEM [...] CONC 1 E1390 [facility] PORT 4 HOME HOME 85%/>02 MEDICAL MEDICAL CONC AT EQUIPME EQUIPME PRSC FLW RATE PRESSURIZ 84312 FERMÍN FERMÍN ED/NONPRE 4 [place] SSURIZED INHALATIO N TREATMENT BRNCDILAT 94027 FERMÍN FERMÍN RSPSE 4 [place] SPMTRY [...] AT EQUIPME EQUIPME PRSC FLW RATE CYSTO 76048 [facility] W/SIMPLE [facility] LIZZY REMOVAL ADULT & STONE & PED STENT ECG 21101 [facility] RICHEY RICHEY PEDRO ROUTINE 4 MD ECG CONSULTIN W/LEAST G SRV 12 LDS I&R ONLY O2 CONC 1 E1390 [facility] [place] 4 HOME HOME 85%/>02 MEDICAL MEDICAL CONC AT EQUIPME EQUIPME [facility] FLW RATE CYSTO 48640 [facility] W/URETERO 4 [facility] BALL SCOPY ADULT & W/LITHOTR PED IPSY ANES 84130 [facility] JOINER CHAVEZ TRURL 4 ANESTHESI FRAGMNTJ A GROUP MANJ&/RMV PS L URETERAL CALCULUS CYSTO 38319 [facility] W/INSERT 4 [facility] BALL URETERAL ADULT & STENT PED DILATION 93150 [facility] NEPHROSTO 4 [facility] BALL MY/URETER ADULT & /URETHRA PED RS&I COMPREHEN 34096 LANDEN SCHUSTER SIVE 4 [facility] METABOLIC INC INC PANEL GAMMAGLOB 53382 LANDEN SCHUSTER ULIN 4 [facility] IMMUNOGLO [place] [address] LANDEN SCHUSTER GAMMAGLOB 4 [facility] [place] [address] LANDEN SCHUSTER FREE 4 [facility] [place] [address] LANDEN SCHUSTER THYROID 4 [facility] STIMULATI INC INC NG HORMONE TSH ANTIBODY 69565 LANDEN SCHUSTER BACTERIUM 4 [facility] NOT INC INC ELSEWHERE SPECIFIED RADIOLOGI 98677 LANDEN SCHUSTER C EXAM 4 [facility] CHEST 2 INC INC VIEWS FRONTAL&L ATERAL BLOOD 41909 LANDNE SCHUSTER COUNT 4 [facility] COMPLETE INC INC AUTO&AUTO DIFRNTL WBC 25 37207 LANDEN SCHUSTER HYDROXY 4 [facility] INCLUDES INC INC FRACTIONS IF PERFORMED CYANOCOBA 55796 LANDEN SCHUSTER JOSE RAFAEL 4 [facility] VITAMIN INC INC B-12 C-REACTIV 99446 LANDEN SCHUSTER E PROTEIN 4 [facility] INC INC SEDIMENTA 53646 LANDEN SCHUSTER TION RATE 4 [facility] RBC INC INC NON-AUTOM ATED BRNCDILAT 79604 FERÍMN FERMÍN RSPSE 4 [place] SPMTRY PRE&POST- BRNCDILAT ADMN PRESSURIZ 19720 FERMÍN FERMÍN ED/NONPRE 4 [place] SSURIZED [...] YOUR YOUR W/SM VOL 3 PHARMACY PHARMACY [facility] NEBULIZR NON-DISPB L PRESSURIZ 67125 FERMÍN FERMÍN ED/NONPRE 3 [place] SSURIZED INHALATIO N TREATMENT BRNCDILAT 14093 FERMÍN FERMÍN RSPSE 3 [place] SPMTRY [...] EQUIPME EQUIPME PRSC FLW RATE INJECTION J2710 [facility] [address] [facility] NE HOSPITA HOSPITA METHYLSUL FATE UP TO 0.5 MG INJECTION J3010 [facility] [place] [address] [facility] 0.1 MG HOSPITA HOSPITA ANES 16558 [place] DEL[place] XTRPRTL 3 ANESTHESI AN LOWER ABD A GROUP UR TRACT PS RENAL DON NFRCT CUSHN A7032 SHAQ SHAQ NASAL 3 HOME HOME MASK MEDICAL MEDICAL INTERFACE EQUIPME EQUIPME REPLACEME NT ONLY EACH INJECTION J1580 [facility] [address] [facility] HOSPITA HOSPITA GENTAMICI N UP TO 80 MG INJECTION J2370 [facility] [address] [facility] RINE HCL HOSPITA HOSPITA UP TO 1 ML INJECTION J2405 [facility] [address] [facility] ON HCL HOSPITA HOSPITA PER 1 MG INJECTION J1100 [facility] [address] [facility] SONE HOSPITA HOSPITA SODIUM PHOSPHATE 1 MG INJECTION J2001 [facility] [address] [facility] HCL HOSPITA HOSPITA INTRAVENO US INFUS 10 MG PYELOPLAS 37515 [facility] TY SIMPLE [address] [facility] HOSPITA HOSPITA LAPAROSCO 04882 [facility] PY 3 [place] LIZZY RADICAL ADULT & NEPHRECTO PED MY URNLS DIP 13113 [facility] 3 N N STICK/TAB [facility] LET HOSPITA HOSPITA REAGENT AUTO MICROSCOP Y BLOOD 41975 [facility] COUNT [address] [facility] AUTO&AUTO HOSPITA HOSPITA DIFRNTL WBC ECG 44751 [facility] ROUTINE [address] [facility] W/LEAST HOSPITA HOSPITA 12 LDS TRCG ONLY W/O I&R COMPREHEN 08947 [facility] SIVE [address] [facility] PANEL HOSPITA HOSPITA COLLECTIO 83255 [facility] N VENOUS [address] [facility] VENIPUN[place] [address] PATHOLOGY CRISTINA SURG 3 & OLY PATHOLOGY CYTOLOGY LAB GROSS&MANJIT ROSCOPIC EXAM SPECIAL 09081 PATHOLOGY CRISTINA STAIN 3 & OLY GROUP 1 CYTOLOGY MICROORGA LAB NISMS I&[place] [address] LANDEN SCHUSTER INFUSION 3 [facility] THERAPY INC INC PROPHYLAX IS/DX EA HOUR ANES 18462 [facility] UPPER GI 3 ANESTH ENDOSCOPY OF THE PROXIMAL BLUE TO DUODENUM EGD 10882 LANDEN SCHUSTER TRANSORAL 3 [facility] BIOPSY INC INC SINGLE/MU LTIPLE URINE 06133 LANDEN SCHUSTER 3 [facility] TEST INC [place] [address] LANDEN SCHUSTER INFUSION 3 [facility] THERAPY/P INC INC ROPHYLAXI S /DX 1ST TO 1 HR O2 CONC 1 E1390 [facility] [place] 3 HOME HOME 85%/>02 MEDICAL MEDICAL CONC AT EQUIPME EQUIPME PRSC FLW RATE DSTR 37001 JEANNETTE Tang VASCELLO NROLYTC 3 VASCELLO ALONDRA MCGILL MD PSC PARVERTEB FCT ADDL CRVCL/THO RA DSTR 19267 ERICA VASCELLO NROLYTC 3 VASCELLO ALONDRA NANO AGEE PSC PARVERTEB FCT SNGL CRVCL/THO RA MODERATE 91685 ERICA VASCELLO SEDATJ 3 VASCELLO ALONDRA SAME PSC PHYS/QHP 5/>YRS INIT 30 MIN SPMTRY 31255 FERMÍN FERMÍN W/VC 3 ALTHEA ALTHEA EXPIRATOR Y ANA MARIA W/WO MXML VOL VNTJ CHEMODERV 79544 NONDENOMINATIONAL JONEL ATE 3 NEUROLOGY [facility] FACIAL/TR CENTER IGEM/CERV BRIANNA MUSC MIGRAINE BOTULINUM J0585 NONDENOMINATIONAL JONEL TOXIN 3 NEUROLOGY [facility] TYPE A CENTER PER UNIT BRIANNA O2 CONC 1 E1390 [facility] [place] 3 HOME HOME 85%/>02 MEDICAL MEDICAL CONC AT EQUIPME [place] NJX 11733 ERICA VASCELLO DX/THER 3 VASCELLO ALONDRA AGT PVRT PSC FACET JT CRV/THRC 2ND LEVEL NJX 62849 ERICA VASCELLO DX/THER 3 VASCELLO ALONDRA AGT PVRT PSC FACET JT CRV/THRC 1 LEVEL MODERATE 13951 ERICA VASCELLO SEDATJ 3 VASCELLO ALONDRA SOULEYMANE AGEE PSC PHYS/QHP 5/>YRS INIT 30 MIN O2 CONC 1 E1390 [facility] [place] 2 HOME HOME 85%/>02 MEDICAL MEDICAL CONC AT EQUIPME EQUIPME [facility] FLW RATE O2 CONC 1 [...] E AIRWAY EQUIPME EQUIPME PRESSURE DEVICE BRNCDILAT 97123 FERMÍN KOVACS RSPSE 2 [place] SPMTRY PRE&POST- BRNCDILAT ADMN PRESSURIZ 68546 FERMÍN GARCIAHBURN ED/NONPRE 2 [place] SSURIZED INHALATIO N TREATMENT BOTULINUM J0585 NONDENOMINATIONAL JONEL TOXIN 2 NEUROLOGY [facility] PER UNIT BRIANNA CYCLIC 87624 [facility] CITRULLIN 2 DIAGNOSTI DIAGNOSTI ATED CS CS PEPTIDE ANTIBODY C-REACTIV 33764 [facility] E PROTEIN 2 DIAGNOSTI DIAGNOSTI CS CS COLLECTIO 98361 [facility] N VENOUS 2 DIAGNOSTI DIAGNOSTI BLOOD CS CS VENIPUNCT URE SEDIMENTA 02566 [facility] TION RATE 2 DIAGNOSTI DIAGNOSTI RBC CS CS AUTOMATED CREATINE 86956 [facility] KINASE 2 DIAGNOSTI DIAGNOSTI TOTAL CS CS O2 CONC 1 E1390 [facility] NEW DEL PORT 2 HOME HOME 85%/>02 MEDICAL MEDICAL CONC AT EQUIPME EQUIPME PRSC FLW RATE IMMUNOASS 41787 [facility] AY 2 DIAGNOSTI DIAGNOSTI ANALYTE CS CS, [place] [address] LANDEN SCHUSTER GAMMAGLOB 2 [facility] [place] [address] LANDEN SCHUSTER THYROID 2 [facility] STIMULATI INC INC NG HORMONE TSH GAMMAGLOB 10036 LANDEN SCHUSTER ULIN 2 [facility] IMMUNOGLO INC INC BULIN SUBCLASSE S 25 10671 LANDEN SCHUSTER HYDROXY 2 [facility] INCLUDES INC INC FRACTIONS IF PERFORMED BLOOD 83773 LANDEN SCHUSTER COUNT 2 [facility] COMPLETE INC INC AUTO&AUTO DIFRNTL WBC RADIOLOGI 06956 LANDEN SCHUSTER C EXAM 2 [facility] CHEST 2 INC INC VIEWS [place]ONTAL&[place] [address] LANDEN SCHUSTER GAMMAGLOB 2 [facility] ULIN IGA INC INC IGD IGG IGM EACH PRESSURIZ 24262 FERMÍN FERMÍN ED/NONPRE 2 [place] SSURIZED INHALATIO N TREATMENT BRNCDILAT 12598 FERMÍN FERMÍN RSPSE 2 [place] SPMTRY PRE&POST- BRNCDILAT ADMN DEMO&/GABI 99226 FERMÍN FERMÍN L OF PT 2 [place] UTILIZ AERSL GEN/NEB/I NHLR/IP ADMN SET A7005 MT MED MT MED W/SM VOL 2 EQUIPMENT EQUIPMENT NONFILTR INC INC NEBULIZR NON-DISPB L NEBULIZER E0570 MT MED MT MED WITH 2 EQUIPMENT EQUIPMENT COMPRESSO INC INC R INJECTION 94273 ERICA VASCELLO 2 VASCELLO ALONDRA SINGLE/ML MD SCHWARTZ T TRIGGER POINT 3/> MUSCLES FLUOROSCO 07343 ERICA VASCELLO PIC 2 VASCELLO ALONDRA GUIDANCE MD SCHWARTZ NEEDLE PLACEMENT ADD ON IIV3 02269 LANDEN SCHUSTER VACCINE 2 [facility] VIRUS 0.5 ML DOSAGE IM USE CREATININ 38810 LANDEN SCHUSTER E BLOOD 2 [place] [address] LANDEN SCHUSTER UREA 2 [facility] NITROGEN INC INC QUANTITAT JADON UROGRAPHY 93087 [place] JOVANNY IV W/WO 2 MEDICAL BELINDA KUB W/WO IMAGING TOMOGRAPH ASS Y CONTINUOU E0601 [facility] NEW S 2 HOME HOME POSITIVE MEDICAL MEDICAL AIRWAY EQUIPME EQUIPME PRESSURE DEVICE CYSTO 74438 CENTRAL SMITH W/SIMPLE 2 [place] LIZZY REMOVAL ADULT & STONE & PED STENT CYSTO 72101 CENTRAL SMITH W/URETERO 2 [place] LIZZY SCOPY ADULT & W/RMVL/MA PED [place] STONES ANES 97324 [place] AWAD TRURL 2 ANESTHESI AN FRAGMNTJ A GROUP MANJ&/RMV PS L URETERAL CALCULUS CYSTO 24966 CENTRAL SMITH W/INSERT 2 [place] LIZZY URETERAL ADULT & STENT PED DILATION 79583 CENTRAL SMITH NEPHROSTO 2 [facility] MY/URETER ADULT & /URETHRA PED RS&I LEVEL III 36466 PATHOLOGY SALAZAR VAN SURG 2 & PATHOLOGY CYTOLOGY LAB GROSS&MANJIT ROSCOPIC EXAM ANES 20145 CHRISTIE MENDEZ MEDHAT LITHOTRP 2 ANESTHESI XTRCORP A GROUP SHOCK PS WAVE W/O WATER BATH FLUOROSCO 98061 CENTRAL SMITH PY SPX UP 2 [facility] LIZZY TO 1 ADULT & HOUR PED PHYS/QHP TIME CYSTO 40645 CENTRAL SMITH W/INSERT 2 [facility] BALL URETERAL ADULT & STENT PED ECG 50291 PEDRO RICHEY RICHEY PEDRO ROUTINE 2 MD ECG CONSULTIN W/LEAST G SERV 12 LDS I&R ONLY LITHOTRIP 99753 CENTRAL SMITH SY 2 [facility] LIZZY XTRCORP ADULT & SHOCK PED WAVE RADEX 24009 [facility] [place] SCALF OLY ABDOMEN 1 2 RADIOLOGY ANTEROPOS TERIOR VIEW BLOOD 09477 LANDEN SCHUSTER COUNT 2 [facility] COMPLETE INC INC AUTO&AUTO DIFRNTL WBC URNLS DIP 76134 LANDEN SCHUSTER 2 [facility] STICK/TAB INC INC LET REAGENT AUTO MICROSCOP Y URINE 86946 LANDEN SCHUSTER 2 [facility] TEST INC INC VISUAL COLOR CMPRSN METHS CONTINUOU E0601 [facility] ORDONEZRELL S 2 HOME HOME POSITIVE MEDICAL MEDICAL AIRWAY EQUIPME EQUIPME PRESSURE DEVICE 3D 69849 LANDEN SCHUSTER RENDERING 2 [facility] INC INC W/INTERP& POSTPROC DIFF WORK STATION AMB A0427 [facility] SERVICE 2 [facility]ANCE AMBULANCE ALS SERVICE SERVICE EMERGENCY TRANSPORT LEVEL 1 CULTURE 26231 LANDEN SCHUSTER BACTERIAL 2 [facility] INC INC QUANTTATI VE COLONY COUNT URINE CULTURE [address] LANDEN SCHUSTER BCT 2 [facility] ISOL&PRSM INC INC PTV ID ISOLATE EA URINE URINE 90341 LANDEN SCHUSTER 2 [facility] TEST INC [place] [address] LANDEN SCHUSTER AMYLASE 2 [facility] INC INC SUSCEPTIB 84736 LANDEN SCHUSTER LTY STDY 2 [facility] ANTIMICRB INC INC IAL MICRO/AGA R DILUTJ GROUND A0425 Ó[facility] 2 AMBULANCE AMBULANCE PER SERVICE SERVICE STATUTE MILE COMPREHEN 93094 LANDEN SCHUSTER SIVE 2 [facility] METABOLIC INC INC PANEL URNLS DIP 06249 LANDEN SCHUSTER 2 [facility] STICK/TAB INC INC LET REAGENT AUTO MICROSCOP Y BLOOD 55264 LANDEN SCHUSTER COUNT 2 [facility] COMPLETE INC INC AUTO&[place] [address] LANDEN SCHUSTER LIPASE 2 [facility] INC INC THERAPEUT 57937 LANDEN SCHUSTER IC 2 [facility] INJECTION INC INC IV PUSH EACH NEW DRUG THER 75168 LANDEN SCHUSTER PROPH/DX 2 [facility] NJX IV INC INC PUSH SINGLE/1S T SBST/[place] [address] LANDEN SCHUSTER ABDOMEN & 2 [facility] [...] MEDICAL AIRWAY EQUIPME EQUIPME PRESSURE DEVICE DSTR 14032 ERICA ERICA NROLYTC 2 VASCELLO VASJESSIE ROSAST ADDL CRVCL/THO RA DSTR 65894 ERICA ERICA NROLYTC 2 VASCELLO VASJESSIE SCHWARTZ MD [facility] FCT SNGL CRVCL/THO RA CONTINUOU E0601 SHAQ NEW S 2 HOME HOME POSITIVE MEDICAL MEDICAL AIRWAY EQUIPME EQUIPME PRESSURE DEVICE NJX 65478 ERICA ERICA DX/THER 2 VASCELLO VASCELLO AGT PVRT MD EFREN AGEE PSC FACET JT CRV/THRC 1 LEVEL NJX 97481 ERICA ERICA DX/THER 2 VASCELLO VASCELLO AGT PVRT MD EFREN AGEE PSC FACET JT CRV/THRC 2ND LEVEL CONTINUOU E0601 SHAQ NEW S 2 HOME HOME POSITIVE MEDICAL MEDICAL AIRWAY EQUIPME EQUIPME PRESSURE DEVICE NJX 44465 ERICA ERICA DX/THER 2 VASCELLO VASCELLO AGT PVRT MD EFREN AGEE PSC FACET JT CRV/THRC 1 LEVEL NJX 54942 ERICA ERICA DX/THER 2 VASCELLO VASCELLO AGT PVRT MD EFREN AGEE PSC FACET JT CRV/THRC 2ND LEVEL [facility] A7032 SHAQ NEW NASAL 2 HOME HOME MASK MEDICAL MEDICAL INTERFACE EQUIPME EQUIPME REPLACEME NT ONLY EACH MODERATE 62800 ERICA ERICA SEDATJ 2 VASCELLO VASCELLO SOULEYMANE AGEE [facility] PHYS/QHP 5/>YRS INIT 30 MIN DSTR 74463 ERICA ERICA NROLYTC 2 VASCELLO VASCELLO NANO SCHWARTZ MD [facility] FCT ADDL LMBR/SACR AL DSTR 80512 ERICA ERICA NROLYTC 2 VASCELLO VASCELLO NANO SCHWARTZ MD [facility] FCT SNGL LMBR/SACR AL CONTINUOU E0601 SHAQ NEW S 2 HOME HOME POSITIVE MEDICAL MEDICAL AIRWAY EQUIPME EQUIPME PRESSURE DEVICE DSTR 95506 ERICA ERICA NROLYTC 2 VASCELLO VASCELLO NANO SCHWARTZ MD [facility] FCT ADDL LMBR/SACR AL DSTR 89812 ERICA ERICA NROLYTC 2 VASCELLO VASCELLO NANO SCHWARTZ MD [facility] FCT SNGL LMBR/SACR AL RADIOLOGI 33757 [facility] 2 MEDICAL MEDICAL EXAMINATI IMAGING IMAGING ON CHEST ASS ASS SINGLE VIEW FRONTAL BASIC 63043 LANDEN SCHUSTER METABOLIC 2 [facility] PANEL INC INC CALCIUM TOTAL CREATINE 45202 LANDEN SCHUSTER KINASE MB 2 [facility] FRACTION INC INC ONLY BLOOD 72827 LANDEN SCHUSTER COUNT 2 [facility] COMPLETE INC INC AUTO&[place] [address] LANDEN SCHUSTER TROPONIN 2 [facility] QUANTITAT INC INC JADON ECG 82329 LANDEN SCHUSTER ROUTINE 2 [facility] W/LEAST P P 12 LDS I&R ONLY CREATINE 03715 LANDEN SCHUSTER KINASE 2 [facility] TOTAL INC INC NJX 62922 ERICA ERICA DX/THER 2 VASCELLO VASCELLO AGT PVRT MD EFREN AGEE PSC FACET JT LMBR/SAC 1 LEVEL NJX 99375 ERICA ERICA DX/THER 2 VASCELLO VASCELLO AGT PVRT MD EFREN AGEE PSC FACET JT LMBR/SAC 2ND LEVEL NJX 96800 ERICA ERICA DX/THER 2 VASCELLO VASCELLO AGT [...] W/POS EQUIPME EQUIPME ARWAY PRESSURE DEVICE POLYSOM 94061 LANDEN SCHUSTER 6/>YRS 1 [facility] SLEEP 4/> INC INC ADDL SHWETHA ATTND IIV3 23893 LANDEN SCHUSTER VACCINE 1 [facility] VIRUS 0.5 ML DOSAGE IM USE RADEX 09599 [facility] JOVANNY WRIST 1 MEDICAL BELINDA COMPLETE IMAGING MINIMUM 3 ASS VIEWS WRIST L3908 SHAQ NEW HAND 1 HOME HOME ORTHOSIS MEDICAL MEDICAL EXT EQUIPME EQUIPME CONTROL COCK-UP PREFAB RADEX 46897 [facility] JOVANNY WRIST 1 MEDICAL BELINDA COMPLETE IMAGING MINIMUM 3 ASS VIEWS RADIOLOGI 82026 [place] C 1 MEDICAL BELINDA EXAMINATI IMAGING ON KNEE ASS 1/2 VIEWS RADIOLOGI 74889 [place] JOV[place]NY C 1 MEDICAL BELINDA EXAMINATI IMAGING ON KNEE 3 ASS VIEWS 3D 21705 [place] JOV[place] RENDERING 1 MEDICAL BELINDA IMAGING W/INTERP& ASS POSTPROC DIFF WORK STATION RADEX 37521 [facility] W[facility]ST 1 MEDICAL BELINDA COMPLETE IMAGING MINIMUM 3 ASS VIEWS CLTX DSTL 25391 GRISELDA SALGADO BAB RADIAL 1 EMERGENCY FX/EPIPHY SERVICES SL SEP W/[place] [address] [place] JOVANNY MAXILLOFA 1 MEDICAL BELINDA CIAL W/O IMAGING CONTRAST ASS MATERIAL SLINGS A4565 [facility] [place] [address] [place] [address] [facility] 1 PHYSICIAN JAM RADIAL&UL S GROUP JOCE SHAFT FRACTURES W/O MAN RADEX 73433 LANDEN SCHUSTER WRIST 2 1 [facility] [place] [address] LANDEN SCHUSTER INFUSION 1 [facility] THER INC INC PROPH ADDL [place] L [place] [address] LANDEN SCHUSTER INFUSION 1 [facility] THERAPY/P INC INC ROPHYLAXI S /DX 1ST TO 1 HR BLOOD 49778 LANDEN SCHUSTER COUNT 0 [facility] COMPLETE INC INC AUTO&AUTO DIFRNTL WBC MRI BRAIN 11243 JAZMINE Mcgrath JOVANNY BRAIN 0 JOVANNY BELINDA STEM W/O CONTRAST MATERIAL C-REACTIV 26688 LANDEN SCHUSTER E PROTEIN 0 [facility] INC INC ANTINUCLE 22240 LANDEN SCHUSTER AR 0 [facility] ANTIBODIE INC INC S CARLOS CREATINE 86641 LANDEN LANDEN KINASE 0 [facility] TOTAL INC INC PROTEIN 05693 LANDEN SCHUSTER ELECTROPH 0 [facility] ORETIC INC INC FRACTJ&QU ANTJ SERUM RHEUMATOI 72086 LANDEN SCHUSTER D FACTOR 0 [facility] QUANTITAT INC INC JADON SCREENING G0202 [place] JOVANNY 0 MEDICAL BELINDA MAMMOGRAP IMAGING HY JERRY ASS INCL CAD WHEN PERFORMD COMPUTER- 54236 [place] JOV[place]NY AIDED 0 MEDICAL BELINDA DETECTION IMAGING [place] [address] LANDEN LANDEN MAGNESIUM 0 [place] [address] LANDEN SCHUSTER FERRITIN 0 [facility] INC INC BLOOD 04966 LANDEN LANDEN COUNT 0 [facility] COMPLETE INC INC AUTO&AUTO DIFRNTL WBC IRON 77953 LANDEN SCHUSTER BINDING 0 [facility] CAPACITY INC INC POTASSIUM 62577 LANDENFRANCA SCHUSTER URINE 0 [place] [address] LANDEN SCHUSTER IRON 0 [facility] INC INC BASIC 57098 LANDEN SCHUSTER METABOLIC 0 [facility] [address] LANDEN SCHUSTER INFUSION 0 [facility] THERAPY INC INC PROPHYLAX [place] [address] PATHOLOGY PATHOLOGY SURG 0 & & PATHOLOGY CYTOLOGY CYTOLOGY LAB LAB GROSS&MANJIT ROSCOPIC EXAM [ENDOSCOP 4836 LANDEN SCHUSTER IC] 0 [facility] POLYPECTO INC INC MY OF RECTUM ENDOSCOPI 4542 LANDEN SCHUSTER C 0 [facility] POLYPECTO INC INC MY OF LARGE INTESTINE URINE 42192 LANDEN SCHUSTER 0 [facility] TEST INC INC VISUAL COLOR CMPRSN METHS COLSC FLX 44468 SAMIA KELI ANT W/RMVL 0 MEDICAL OF TUMOR [place] [address] LANDEN SCHUSTER INFUSION 0 [facility] THERAPY/P INC INC ROPHYLAXI S /DX 1ST TO 1 HR IIV3 15265 LANDEN SCHUSTER VACCINE 0 [facility] VIRUS 0.5 ML DOSAGE IM USE BLOOD 82079 LANDEN SCHUSTER COUNT 0 [facility] COMPLETE INC INC AUTO&AUTO DIFRNTL WBC GONADOTRO 15442 LANDEN SCHUSTER PIN 0 [facility] [address] LANDEN SCHUSTER INFUSION 0 [facility] THERAPY/P INC INC ROPHYLAXI S /DX 1ST TO 1 HR EGD 34405 SAMIA DICKEY ANT TRANSORAL 0 MEDICAL BIOPSY SERV SINGLE/MU FOUNDATIO LTIPLE ESOPHAGOG 4516 LANDEN SCHUSTER ASTRODUOD 0 [facility] ENOSCOPY [place] [address] PATHOLOGY PATHOLOGY SURG 0 & & PATHOLOGY CYTOLOGY CYTOLOGY LAB LAB GROSS&[place] [address] LANDEN SCHUSTER INFUSION 0 [facility] THERAPY INC INC PROPHYLAX IS/DX EA HOUR SPECIAL 77986 PATHOLOGY PATHOLOGY STAIN 0 & & GROUP 1 CYTOLOGY CYTOLOGY MICROORGA LAB LAB [facility] I&R BLOOD 64778 LANDEN SCHUSTER COUNT 0 [facility] COMPLETE INC INC AUTO&AUTO DIFRNTL WBC BLOOD 40775 LANDEN MCKEONON COUNT 0 [facility] COMPLETE INC INC AUTO&AUTO DIFRNTL WBC POTASSIUM 68186 LANDEN SCHUSTER SERUM 0 [facility] PLASMA/[place] [address] CHRISTIE PETTY UPR W/WO 0 MEDICAL BELINDA GLUCOSE IMAGING W/SM ASS INTEST FOLLW-THR U RADEX 88644 LANDEN SCHUSTER UPPER GI 0 [facility] W/WO INC INC GLUCAGON/ DELAY IMAGES W/KUB BLOOD 35861 LANDEN SCHUSTER OCCULT 0 [facility] PEROXIDAS INC INC E ACTV QUAL FECES 1-3 SPEC BLOOD 08234 LANDEN SCHUSTER COUNT 0 [facility] COMPLETE INC INC AUTO&AUTO DIFRNTL WBC POTASSIUM 61812 LANDEN SCHUSTER SERUM 0 [facility] PLASMA/WH INC INC OLE BLOOD CYANOCOBA 39287 LANDEN SCHUSTER JOSE RAFAEL 0 [facility] VITAMIN INC INC B-12 [place] [address] LANDEN SCHUSTER FOLIC 0 [facility] [place] [address] LANDEN LANDEN THYROID 0 [facility] STIMULATI INC INC NG HORMONE TSH ANESTHESI 24889 [facility], A HERNIA 9 ANESTH HAZEL A REPAIR OF THE [place]OWER [place] ABDOMEN NOS RPR 1ST 29126 LANDEN SCHUSTER INGUN 9 [facility] HRNA AGE INC INC 5 YRS/> INCARCERA SREE THERAPEUT 30230 LANDEN SCHUSTER IC 9 [facility] INJECTION [place] [address] LANDEN SCHUSTER INFUSION 9 [facility] THERAPY/P INC INC ROPHYLAXI S /DX 1ST TO 1 [place] [address] LANDEN SCHUSTER INFUSION 9 [facility] THERAPY INC INC PROPHYLAX IS/DX EA HOUR OTH & OPN 5304 LANDEN SCHUSTER REP 9 [facility] INDIRECT INC INC ING HERNIA W/GRAFT/P ROSTH BASIC 58478 LANDEN SCHUSTER METABOLIC 9 [facility] PANEL INC INC CALCIUM TOTAL BLOOD 53447 LANDEN SHCUSTER COUNT 9 [facility] COMPLETE INC INC AUTO&AUTO DIFRNTL WBC GONADOTRO 40285 LANDEN SCHUSTER PIN 9 [facility] CHORIONIC INC INC QUALITATI VE Encounters Encounter Start End Date Code Location Performer Type Date OFFICE 46383 [facility] OUTPATIEN 7 7 PHYSICIAN T VISIT S GROUP 15 MINUTES [facility] OUTPATIEN INC T OFFICE 45865 [facility]ASH OUTPATIEN 7 7 T NEW 45 MINUTES OFFICE 12930 [facility] OUTPATIEN 7 7 PHYSICIAN T VISIT S GROUP 25 MINUTES [facility] OUTPATIEN INC T OFFICE 54085 [facility] OUTPATIEN 7 7 [facility] T VISIT 5 INC MINUTES OFFICE 77534 [facility] ALL[facility] JR OUTPATIEN 7 7 PHYSICIAN T NEW 20 S GROUP MINUTES [facility] 7 [facility] OUTPATIEN INC T [facility] 7 7 [facility] OUTPATIEN INC T [facility] 7 [facility] PHYSICIAN E S GROUP MEDICINE NEW PATIENT 40-64YRS [facility] - 7 7 [facility] OUTPATIEN INC T OFFICE 49238 [facility] OUTPATIEN 7 7 PHYSICIAN T VISIT S GROUP 40 MINUTES [facility] 7 [facility] OUTPATIEN INC T [facility] 7 7 [facility] OUTPATIEN INC T [facility] 7 7 [facility] OUTPATIEN INC T EMERGENCY 09110 [facility] 7 7 [facility] DEPARTMEN INC T VISIT HIGH/URGE NT SEVERITY [facility] 7 7 [facility] OUTPATIEN [facility] T OFFICE 66986 MALIK PIZARRO OUTPATIEN 7 7 FAMILY T NEW 30 CARE MINUTES CENTER OFFICE 59941 MEÑO VEEPATIEN 7 7 T VISIT 15 MINUTES [facility] L[facility]EN - 7 7 [facility] OUTPATIEN [facility] UN[facility]ERS[facility] - 6 6 [facility] T OFFICE 66790 [facility] OUTPATIEN 6 6 NURSE CK BING T VISIT PRACTITIO 40 NER GR MINUTES OFFICE 84464 [facility] CONSULTAT 6 6 NURSE CK BING ION PRACTITIO NEW/ESTAB NER GR PATIENT 60 MIN [facility] - 6 6 [facility] T OFF[facility] 82136 MEÑO VEEPATIEN 6 6 OLY OLY T VISIT 15 MINUTES EMERGENCY 15957 KRISS MONTERROSO DEPT 5 5 JOSS JOSS VISIT HIGH SEVERITY& THREAT [facility] EMERGENCY 64845 EDISON ATKINSON DEPT 5 5 VISIT HIGH SEVERITY& THREAT [facility] LANDEN - 5 5 [facility] T OFFICE 46121 FERMÍN KOVACS OUTPATIEN 5 5 ALTHEA ALTHEA T VISIT 40 MINUTES OFFICE 46029 MEÑO VEEPATILALITA 4 4 OLY OLY T VISIT 15 MINUTES OFFICE 57270 MEÑO BAILEY 4 4 OLY OLY T VISIT 15 MINUTES OFFICE 02603 MEÑO BAILEY 4 4 OLY OLY T VISIT 15 MINUTES OFFICE 93750 MEÑO BAILEY 4 4 OLY OLY T VISIT 15 MINUTES OFFICE 94597 FERMÍN KOVACS OUTPATIEN 4 4 ALTHEA ALTHEA T VISIT 40 MINUTES OFFICE 54208 [facility] CONSULTAT 4 4 CHRISTIE LIZZY ION ADULT & NEW/ESTAB PED PATIENT 40 MIN [facility] 80178 [facility] EMERGENCY MANJIT VISIT SERVICES HIGH SEVERITY& THREAT [facility] - 4 4 [facility] OUTPATIEN INC T OFFICE 90213 FERMÍN KOVACS OUTPATIEN 4 4 ALTHEA ALTHEA T VISIT 40 MINUTES OFFICE 58856 MISSARY MEÑO OUTPATIEN 3 3 OLY OLY T VISIT 15 MINUTES OFFICE 71749 MEÑO WILDER OUTPATIEN 3 3 OLY OLY T VISIT 15 MINUTES OFFICE 43490 FERMÍN KOVACS OUTPATIEN 3 3 ALTHEA ALTHEA T VISIT 40 MINUTES OFFICE 35208 ARTHRITIS MD ARTEMIO OUTPATIEN 3 3 AND MAN T VISIT OSTEOPORO 15 SIS C MINUTES HOME [facility] 3 3 HOME OUTPATIEN HEALTH T HOME 22766 [facility] VISIT EST 3 3 HOME PT HEALTH MOD-HI SEVERITY 40 MINUTES HOME 60311 [facility] VISIT EST 3 3 HOME PT HEALTH MOD-HI SEVERITY 40 MINUTES HOME 23662 [facility] VISIT EST 3 3 HOME PT HEALTH MOD-HI SEVERITY 40 MINUTES HOME 61178 [facility] VISIT EST 3 3 HOME PT HEALTH MOD-HI SEVERITY 40 MINUTES [facility] - 3 3 N OUTPATIEN [facility]0445 [facility] PHYSICIAN ALIREZA T NEW 30 S GROUP MINUTES OFFICE 58876 FERMÍN KOVACS OUTPATIEN 3 3 ALTHEA OH T VISIT 25 MINUTES OFFICE 75644 ZACARIAS REMY OUTPATILALITA 3 3 NEUROLOGY RAFAEL T VISIT CENTER 25 BRIANNA MINUTES OFFICE 16618 FERMÍN KOVACS OUTPATIEN 2 2 ALTHEA OH T VISIT 25 MINUTES OFFICE 61549 ARTHRITIS MD ARTEMIO CONSULTAT 2 2 AND MAN ION OSTEOPORO NEW/ESTAB SIS C PATIENT 60 MIN [facility] OUTPATIEN INC T OFFICE 67881 FERMÍN KOVACS OUTPATIEN 2 2 ALTHEA ALTHEA T NEW 60 MINUTES OFFICE 26015 ERICA VASCELLO OUTPATIEN 2 2 VASCELLO ALONDRA T VISIT [facility] 25 MINUTES [facility] - 2 2 [facility] OUTPATIEN INC T OFFICE 99268 NONDENOMINATIONALSue REMY OUTPATIEN 2 2 HEALTH RAFAEL T VISIT MEDICAL 25 GROUP MINUTES OFFICE 97238 MEÑO WILDER OUTPATIEN 2 2 OLY OLY T VISIT 25 MINUTES OFFICE 27801 [facility] 2 2 [place] LIZZY ION ADULT & NEW/ESTAB PED PATIENT 40 MIN [facility] OUTPATIEN INC T OFFICE 58648 MEÑO WILDER OUTPATIEN 2 2 OLY OLY T VISIT 15 MINUTES [facility] - 2 2 [facility] OUTPATIEN INC T EMERGENCY 90517 [facility] 2 2 [facility] DEPARTMEN INC T VISIT HIGH/URGE NT SEVERITY EMERGENCY 53456 GRISELDA QUINTERO DEPT 2 2 EMERGENCY EMERSON VISIT SERVICES HIGH SEVERITY& THREAT [facility] - 2 2 [facility] OUTPATIEN [facility] EMERGENCY 95271 GRISELDA MOREAU DEPT 2 2 EMERGENCY VISIT SERVICES HIGH SEVERITY& THREAT FUN EMERGENCY 90572 [facility] 2 2 [facility] DEPARTMEN [facility] T VISIT HIGH/URGE NT SEVERITY [facility] - 1 1 [facility] OUTPATIEN [facility] OFFICE 23790 MEÑO WILDER OUTPATIEN 1 1 OLY OLY T VISIT 15 MINUTES [facility] - 1 1 [facility] OUTPATIEN [facility] H[facility] - 1 1 [facility] OUTPATIEN [facility] OFFICE 09629 NONDENOMINATIONAL JONEL OUTPATIEN 1 1 NEUROLOGY RAFAEL T VISIT CENTER 25 BRIANNA MINUTES HOSP[facility] - 1 1 [facility]PATIEN [facility] H[facility] - 1 1 [facility] OUTPATIEN [facility] EMERGENCY 81978 GRISELDA KELLY 1 1 EMERGENCY DEPARTMEN SERVICES T VISIT HIGH/URGE NT SEVERITY EMERGENCY 62666 [facility] 1 1 [facility] DEPARTMEN [facility] T VISIT LOW/MODER SEVERITY OFFICE 20418 MISSARY MEÑO OUTPATIEN 1 1 OLY OLY T NEW 30 MINUTES [facility] - 1 1 [facility]PATIEN [facility] - 0 0 [facility]PATIEN [facility] H[facility] - 0 0 [facility] OUTPATIEN [facility] OFFICE 11122 NONDENOMINATIONAL JONEL OUTPATIEN 0 0 NEUROLOGY RAFAEL T VISIT CENTER 25 BRIANNA MINUTES HOSP[facility] - 0 0 [facility]PATIEN [facility] - 0 0 [facility]PATI[facility] - 0 0 [facility]IEN [facility] - 0 0 [facility] - 0 0 [facility] - 0 0 [facility] - 0 0 [facility] - 0 0 [facility] OFF[facility] 81814 NONDENOMINATIONAL JONEL CONSULTAT 0 0 NEUROLOGY RAFAEL ION CENTER NEW/ESTAB BRIANNA PATIENT 80 MIN [facility]EN - 0 0 [facility] OFF[facility] 65246 DEANDRE BAILEY 0 0 SHARMAINE SHARMAINE T VISIT 15 MINUTES OFFICE 02422 DEANDRE CARRERA OUTPATIEN 0 0 SHARMAINE A SHARMAINE A T VISIT 15 MINUTES [facility] - 9 9 [facility] - 9 9 [facility] OFFICE 27867 SCHULSTAD SCHULSTAD CONSULTAT 9 9 , LISALISA Rubio ION NEW/ESTAB PATIENT 60 MIN OFFICE 58401 DEANDRE CARRERA OUTPATIEN 9 9 SHARMAINE A SHARMAINE A T VISIT 15 MINUTES OFFICE 09710 DEANDRE CARRERA OUTPATIEN 9 9 SHARMAINE A SHARMAINE A T VISIT 15 MINUTES OFFICE 27552 DEANDRE CARRERA OUTPATIEN 9 9 SHARMAINE A SHARMAINE A T VISIT 15 MINUTES
--- OUTSIDE RECORDS SUMMARY | 2017-01-16 16:47 | External Medical Summary Rpt | CCD ---
Demographics Preferred Language Citizen Of [place] Marital Status Unknown Buddhism Affiliation Unknown Race Unknown Ethnic Group Unknown Author Author , MYRIAM MIGUEL Address Unknown Phone Immunization Unable to retrieve immunization data due to connection failure with Immunization Registry. Please try again later.
--- OUTSIDE RECORDS SUMMARY | 2017-01-16 16:47 | External Medical Summary Rpt | CCD ---
Demographics Preferred Language Ecuad[place] Marital Status Unknown Buddhism Affiliation Unknown Race Unknown Ethnic Group Unknown Author Author , MYRIAM MIGUEL Address Unknown Phone Immunization Unable to retrieve immunization data due to connection failure with Immunization Registry. Please try again later.
--- OUTSIDE RECORDS SUMMARY | 2017-01-16 16:48 | External Medical Summary Rpt ---
[...] Serum or RESU Plasma LTS CALLED TO: GUILLERMO.[facility] 08/30/16 [address],[place] nda> 0.5 IS CONSISTEN T WITH MYOCARDIA [...]
--- OUTSIDE RECORDS SUMMARY | 2017-01-16 16:48 | External Medical Summary Rpt ---
[...] Serum or RESU Plasma LTS CALLED TO: GUILLERMO.[facility] 08/30/16 [address],[place] nda> 0.5 IS CONSISTEN T WITH MYOCARDIA [...]
[2017-01-16] MEDS ORDERED: AUGMENTIN 875-1 EACH PO (17:09)
[2017-01-16] MEDS ORDERED: MEDROL 4MG. DOSE4 MG PO (17:09)
[2017-01-16] MEDS ORDERED: TESSALON PERLE100 M1 PO (17:09)
[2017-01-16] MEDS ORDERED: FLONASE 50 MCG16 GM (17:09)
--- NOTE | 2017-01-16 17:11 | Urgent Treatment Center Report ---
History of Present Issue Date/Time Seen by Provider 01/16/17 5565 Visit Reason Pt arrived:Walked Presenting Problem:COUGH, RUNNY NOSE AND HEAD CONGESTION X 8 DAYS Location if Accident: Onset of symptoms date/time:/ or onset unknown for:MEDICAL HX UNKNOWN Have you (or family members/close friends) recently traveled outside the [place]? N If Yes, where/when: Have you had exposure to infectious disease within the past month? TB? Other? Specify: Patient states that she has been having sinus pain and pressure along with runny nose and head congestion that has continued to get worse over the last 8-9 days States that she has had sinus headache, feverish and not feeling well. States that she came in because she began to have pressure under her left eye like she often gets when she gets a bad sinus infection ALLERGIES Coded Allergies: Penicillins (Mild, 12/30/16) diphenhydramine (From BENADRYL) (ORAL BENADRYL ONLY 12/30/16) Home Medications Reported Medications Bupropion HCl (Bupropion HCl Sr) 150 MG PO BID #60 UMECLIDINIUM BROMIDE (Incruse Ellipta) 1 PUFF IH DAILY #30 Fluticasone Propionate (Flonase 50 Mcg Nasal Vincent) 1 SPRAY NA BID #16 Loratadine (Claritin 10MG) 10 MG PO DAILY #30 Albuterol Sulfate (Ventolin Hfa) 1 PUFFS IH UD #18 MULTIVIT-MIN W/FE-FA ( Multivitamin Tablet) 1 TAB PO DAILY Diazepam (Valium 10MG) 10 MG PO BID Gabapentin (Gabapentin 100MG) 200 MG PO TID Atorvastatin Calcium (Atorvastatin) 10 MG PO DAILY ISOSORBIDE MONONITRATE (Isosorbide Mononitrate ER) 30 MG PO DAILY Topiramate (Topiramate 25MG Tablet) 25 MG PO DAILY ASPIRIN (Aspirin) 81 MG PO DAILY MILNACIPRAN HCL (Savella) 50 MG PO BID BISOPROLOL FUMARATE (Bisoprolol 5MG) 10 MG PO DAILY NITROGLYCERIN (Nitrostat) 0.4 MG SL [id number] PRN ANGINA BUTALBIT/ACETAMIN/CAFF/CODEINE (Omzjql-Udvv-Haifmhmobfj-Codein) 1 EACH PO BID History Medical History General CAD? No Angina: Yes AR: Yes Hypertension? Yes Hyperlipidemia? Yes CHF? No DVT? No PE? No COPD? Yes Asthma? No Anemia? Yes GERD? No Gastric ulcers? No GI Bleed? No Hernia? Yes Thyroid Problems? No Hypothyroidism? No CVA? Yes Seizures? No Diabetes? No Renal Insuffiency? No UTI? No Stones? No BPH? No GB Disease: No Nephritic Syndrome? No Asplenia? No Hepatitis? No Sickle Cell Disease? No Arthritis? No Migraines? No Cataracts? No Glaucoma? No MRSA? No HIV? No TB? No Anxiety? No Depression? No Cancer? Yes Site: LEFT BREAST Immunization HX DT/Tetanus > 10 Years Ago Flu 2016- Flu Season Pneumonia Never Had Surgical Hx Previous Surgery?Y C SECTION X3 LEFT BREAST MASS UPPER GI LOWER GI CHEMO X 3 Hernia Repair POLYPS X 17 KIDNEY STONES PELVIC MESH OPEN HEART Family History Family HX Diabetes Yes CAD Yes Hypertension Yes Hyperlipidemia Yes Cancer Yes TB No Social History Smoking Hx Smoker: Current Some Day Smoker Tobacco: Yes Type Cigarettes Packs/day < 1 Pack Alcohol Alcohol: No Review of Systems All Other Systems Reviewed and Negative Constitutional chills, fever ENT nose discharge, nose congestion, throat pain. Respiratory cough, denies shortness of breath, denies wheezing Physical Exam Vital Signs Vital Signs Date Time Temp Pulse Resp B/P Pulse O2 O2 Flow FiO2 Ox Delivery Rate 01/16 1649 98.9 78 18 98/68 96 General Appearance normal appearance, WD/WN, no apparent distress Ear, Nose, Throat sinus pain/drainage, nasal congestion, Sinus pain and pressure with tenderness in maxillary sinuses with palpation Respiratory Status Yes: trachea midline, chest symmetrical, non tender chest. No: respiratory distress. Cardiovascular normal exam, regular rate/rhythm Neurologic alert, normal exam, oriented x 3 Medical Decision Making LABS/Meds/Orders Pt receiving controlled substance in ED? No Progress [facility] Progress Notes Comment Patient state that she is allergic to the Penicillin shot but able to take deriviatives from penicillin such as Augmentin and Amoxicillin without reaction State that she is only unable to take the Penicillin shot. Discussed with patient risks associated with reaction and what to watch for State that she has taken the medication before without reaction Departure Departure Time of Disposition 1705 Disposition DC Home or Self Care(routine) Clinical Impression Primary Impression: Sinusitis Qualifiers: Sinusitis location: maxillary Chronicity: unspecified Qualified Code: J32.0 - Chronic maxillary sinusitis Condition STABLE Referrals Leon AGEE,Djeuan Galan (Family): 3 Days-Call Office if no improvement Patient Instructions DI for Sinusitis, Sinus Headache, Sinusitis Additional Instructions Start antibiotic. Sinus infections may take 2-3 days to notice much improvement so be sure to use conservative measures as discussed for symptoms Ok to continue Sudafed Flonase 2 spray in each nostril daily to help with nasal congestion, sinus an ear pressure/inflammation Lots of Fluids Sleep elevated Humidifer/vaporizer Discharge Counseling Counseled pt/family regarding diagnosis, medications/RX, home care, follow up needs Prescriptions Current Visit Scripts Amoxicillin/Potassium Clav (Augmentin 875-125 Tablet) 1 EACH PO BID #14 TAB Methylprednisolone (Medrol Dose Nolberto) 4 MG PO UD #1 NOLBERTO TAKE DIRECTED ON PACKAGING Fluticasone Propionate (Flonase 50 Mcg Nasal Vincent) 2 SPRAY NA DAILY #1 BOT Benzonatate (Tessalon Perle) 100 MG PO TID #15 SGL at 1710
--- NOTE | 2017-01-16 17:11 | Urgent Treatment Center Report ---
History of Present Issue Date/Time Seen by Provider 01/16/17 4545 Visit Reason Pt arrived:Walked Presenting Problem:COUGH, RUNNY NOSE AND HEAD CONGESTION X 8 DAYS Location if Accident: Onset of symptoms date/time:/ or onset unknown for:MEDICAL HX UNKNOWN Have you (or family members/close friends) recently traveled outside the [place]? N If Yes, where/when: Have you had exposure to infectious disease within the past month? TB? Other? Specify: Patient states that she has been having sinus pain and pressure along with runny nose and head congestion that has continued to get worse over the last 8-9 days States that she has had sinus headache, feverish and not feeling well. States that she came in because she began to have pressure under her left eye like she often gets when she gets a bad sinus infection ALLERGIES Coded Allergies: Penicillins (Mild, 12/30/16) diphenhydramine (From BENADRYL) (ORAL BENADRYL ONLY 12/30/16) Home Medications Reported Medications Bupropion HCl (Bupropion HCl Sr) 150 MG PO BID #60 UMECLIDINIUM BROMIDE (Incruse Ellipta) 1 PUFF IH DAILY #30 Fluticasone Propionate (Flonase 50 Mcg Nasal Mitchell) 1 SPRAY NA BID #16 Loratadine (Claritin 10MG) 10 MG PO DAILY #30 Albuterol Sulfate (Ventolin Hfa) 1 PUFFS IH UD #18 MULTIVIT-MIN W/FE-FA ( Multivitamin Tablet) 1 TAB PO DAILY Diazepam (Valium 10MG) 10 MG PO BID Gabapentin (Gabapentin 100MG) 200 MG PO TID Atorvastatin Calcium (Atorvastatin) 10 MG PO DAILY ISOSORBIDE MONONITRATE (Isosorbide Mononitrate ER) 30 MG PO DAILY Topiramate (Topiramate 25MG Tablet) 25 MG PO DAILY ASPIRIN (Aspirin) 81 MG PO DAILY MILNACIPRAN HCL (Savella) 50 MG PO BID BISOPROLOL FUMARATE (Bisoprolol 5MG) 10 MG PO DAILY NITROGLYCERIN (Nitrostat) 0.4 MG SL [id number] PRN ANGINA BUTALBIT/ACETAMIN/CAFF/CODEINE (Xfewjq-Fgvi-Tfizhnchjuq-Codein) 1 EACH PO BID History Medical History General CAD? No Angina: Yes DC: Yes Hypertension? Yes Hyperlipidemia? Yes CHF? No DVT? No PE? No COPD? Yes Asthma? No Anemia? Yes GERD? No Gastric ulcers? No GI Bleed? No Hernia? Yes Thyroid Problems? No Hypothyroidism? No CVA? Yes Seizures? No Diabetes? No Renal Insuffiency? No UTI? No Stones? No BPH? No GB Disease: No Nephritic Syndrome? No Asplenia? No Hepatitis? No Sickle Cell Disease? No Arthritis? No Migraines? No Cataracts? No Glaucoma? No MRSA? No HIV? No TB? No Anxiety? No Depression? No Cancer? Yes Site: LEFT BREAST Immunization HX DT/Tetanus > 10 Years Ago Flu 2016- Flu Season Pneumonia Never Had Surgical Hx Previous Surgery?Y C SECTION X3 LEFT BREAST MASS UPPER GI LOWER GI CHEMO X 3 Hernia Repair POLYPS X 17 KIDNEY STONES PELVIC MESH OPEN HEART Family History Family HX Diabetes Yes CAD Yes Hypertension Yes Hyperlipidemia Yes Cancer Yes TB No Social History Smoking Hx Smoker: Current Some Day Smoker Tobacco: Yes Type Cigarettes Packs/day < 1 Pack Alcohol Alcohol: No Review of Systems All Other Systems Reviewed and Negative Constitutional chills, fever ENT nose discharge, nose congestion, throat pain. Respiratory cough, denies shortness of breath, denies wheezing Physical Exam Vital Signs Vital Signs Date Time Temp Pulse Resp B/P Pulse O2 O2 Flow FiO2 Ox Delivery Rate 01/16 1649 98.9 78 18 98/68 96 General Appearance normal appearance, WD/WN, no apparent distress Ear, Nose, Throat sinus pain/drainage, nasal congestion, Sinus pain and pressure with tenderness in maxillary sinuses with palpation Respiratory Status Yes: trachea midline, chest symmetrical, non tender chest. No: respiratory distress. Cardiovascular normal exam, regular rate/rhythm Neurologic alert, normal exam, oriented x 3 Medical Decision Making LABS/Meds/Orders Pt receiving controlled substance in ED? No Progress [facility] Progress Notes Comment Patient state that she is allergic to the Penicillin shot but able to take deriviatives from penicillin such as Augmentin and Amoxicillin without reaction State that she is only unable to take the Penicillin shot. Discussed with patient risks associated with reaction and what to watch for State that she has taken the medication before without reaction Departure Departure Time of Disposition 1705 Disposition DC Home or Self Care(routine) Clinical Impression Primary Impression: Sinusitis Qualifiers: Sinusitis location: maxillary Chronicity: unspecified Qualified Code: J32.0 - Chronic maxillary sinusitis Condition STABLE Referrals Leon AGEE,Dejuan Galan (Family): 3 Days-Call Office if no improvement Patient Instructions DI for Sinusitis, Sinus Headache, Sinusitis Additional Instructions Start antibiotic. Sinus infections may take 2-3 days to notice much improvement so be sure to use conservative measures as discussed for symptoms Ok to continue Sudafed Flonase 2 spray in each nostril daily to help with nasal congestion, sinus an ear pressure/inflammation Lots of Fluids Sleep elevated Humidifer/vaporizer Discharge Counseling Counseled pt/family regarding diagnosis, medications/RX, home care, follow up needs Prescriptions Current Visit Scripts Amoxicillin/Potassium Clav (Augmentin 875-125 Tablet) 1 EACH PO BID #14 TAB Methylprednisolone (Medrol Dose Nolberto) 4 MG PO UD #1 NOLBERTO TAKE DIRECTED ON PACKAGING Fluticasone Propionate (Flonase 50 Mcg Nasal Mitchell) 2 SPRAY NA DAILY #1 BOT Benzonatate (Tessalon Perle) 100 MG PO TID #15 SGL at 1713
[2017-01-16 17:22] VITALS: BP 98/68
== END 2017-01-16 17:22 | disposition home or self-care (01) ==
LOC: UTC 16:11
DX: J32.0 Chronic maxillary sinusitis (principal); F17.210 Nicotine dependence, cigarettes, uncomplicated; D64.9 Anemia, unspecified; J44.9 Chronic obstructive pulmonary disease, unspecified; E78.5 Hyperlipidemia, unspecified; I10 Essential (primary) hypertension; Z88.0 Allergy status to penicillin

== ENCOUNTER → 2017-01-16 | Outpatient (CLI) | payer MEDICAID ==
[2017-01-16 18:41] LABS: BUN 19 mg/dL (7-18); GFR (ESTIMATED) 74 ML/MIN (59-)
== END ==
LOC: LAB 16:01
PROVIDERS: Internal Medicine Cardiovascular Disease
DX: I25.10 Atherosclerotic heart disease of native coronary artery without angina pectoris (principal); I11.9 Hypertensive heart disease without heart failure; I71.4 Abdominal aortic aneurysm, without rupture; I50.30 Unspecified diastolic (congestive) heart failure; Z72.0 Tobacco use